=== PATIENT | male | born 1940 | race Caucasian/White ===

== ENCOUNTER 2023-07-29 07:43 | Outpatient (RCR) | payer MEDICARE, OTHER, BC, SELFPAY | END 2023-09-01 15:43 | disposition home or self-care (01) | LOC: PT 07:43 | PROVIDERS: PCP Registered Nurse; Visit Provider Registered Nurse | DX: R26.81 Unsteadiness on feet (principal) | CPT/HCPCS: 97110; 97112; 97116; 97163; 97530 ==

== ENCOUNTER 2024-05-30 14:55 | Outpatient (OUT) | payer MEDICARE, OTHER, SELFPAY ==
--- NOTE | 2024-05-30 15:04 | ECG_ITS ---
[facility] Test Date: 2024-05-30 Pat Name: SHIRLEY NIETO Department: Room: - Gender: Male Supervisor Finishing Room: : 1940 Requested By: HENOK ROGERS Order Number: [id number] Reading MD: SHELLEY HARRISON M.D. Measurements Intervals Davin Rate: 109 P: 73 MA: 164 QRS: -56 QRSD: 129 T: 56 QT: 374 QTc: 505 Interpretive Statements SINUS TACHYCARDIA WITH FREQUENT SUPRAVENTRICULAR PREMATURE COMPLEXES IN A BIGEMINAL PATTERN RIGHT BUNDLE BRANCH BLOCK LEFT ANTERIOR FASCICULAR BLOCK [QRS AXIS <= -45, QR IN I, RS IN II] Bifascicular block No previous ECG available for comparison Electronically Signed On 05-30-2024 21:48:10 EDT by SHELLEY HARRISON M.D.
[2024-05-30 15:49] LABS: Creatinine Urine Random 87.79 mg/dL (20.00-300.00); Microalbum Creatinine Ratio Ur 55.8 mg/g (0.0-29.9); Microalbumin Urine Random 4.9 mg/dL (<=30.0)
[2024-06-02 08:08] LABS: Thyroid Stim Immunoglobulin <0.10 IU/L (0.00-0.55)
== END 2024-05-30 14:56 | disposition home or self-care (01) ==
LOC: CARD 14:58
PROVIDERS: PCP Internal Medicine; Visit Provider Internal Medicine
DX: R60.0 Localized edema (principal); R01.1 Cardiac murmur, unspecified; R53.83 Other fatigue; I50.9 Heart failure, unspecified; I11.0 Hypertensive heart disease with heart failure
CPT/HCPCS: 36415; 82043; 82570; 83880; 84445; 93005

== ENCOUNTER 2024-06-10 07:09 | Outpatient (OUT) | payer MEDICARE, OTHER, SELFPAY ==
--- NOTE | 2024-06-10 07:30 | CA_ITS ---
Patient Name: SHIRLEY NIETO MR#: [id number] : 1940 Exam Date: 06/10/2024 Ordering Doctor: DR HENOK ROGERS D.O. ECHOCARDIOGRAM REPORT PROCEDURE: CA ECHO DOPPLER COMPLETE INDICATIONS: Edema, fatigue, hypertension COMPARISON: None. DESCRIPTION: COMPLETE ECHOCARDIOGRAM Real-time transthoracic echocardiography with 2D, M-mode, spectral and color flow Doppler performed. QUALITY: Technical quality was good. LEFT VENTRICLE: Normal chamber size. Mild concentric left ventricular hypertrophy. Normal left ventricle systolic function without wall motion abnormalities, LV EF: Normal left ventricular ejection fraction 55 to 60% DIASTOLIC: Unable to evaluate diastolic function ATRIAL SEPTUM: Visually appears intact LEFT ATRIUM: Normal chamber size. RIGHT ATRIUM: Mild dilatation. RIGHT VENTRICLE: Normal chamber size. Normal right ventricular systolic function. TRICUSPID VALVE: Normal mobility and thickness. No stenosis with trivial regurgitation. MITRAL VALVE: Normal mobility and thickness. No evidence of mitral valve stenosis. There is no mitral annular calcification. Mild mitral regurgitation. AORTIC VALVE: Normal trileaflet appearance. Thickened aortic valve. Normal leaflet mobility. No evidence of aortic valve stenosis. No aortic regurgitation. AORTIC ROOT: Normal diameter and appearance. PULMONIC VALVE: Normal thickness and mobility. No stenosis. Trivial regurgitation. PERICARDIUM: No evidence of pericardial effusion. IVC: Not well visualized. PLEURA: CONCLUSION: Mild concentric left ventricular hypertrophy Normal left ventricle size, and systolic function without wall motion abnormalities, ejection fraction 55 to 60% Unable to evaluate left ventricle diastolic function Normal right ventricle size and systolic function Mild mitral regurgitation Mildly dilated right atrium Adult Echocardiography Procedure Report Left Ventricle LVEDD (3.7 - 5.6 cm): 4.98 cm LVESD (2.2 - 4.0 cm): 3.36 cm LVIVS thickness (0.6 - 1.2 cm): 1.39 cm LVPW thickness (0.5 - 1.0 cm): 1.28 cm e': E - e': LVOT Max Gradient: 2.15 mm[Hg], 2.62 mm[Hg], 3.16 mm[Hg] LVOT Area (cm2): 0.81 m/s Peak Velocity (LVOT): 0.73 m/s, 0.81 m/s, 0.89 m/s Mean Velocity (LVOT): LVOT Diameter 2.57 cm Left Ventricular Ejection Fraction: Left Atrium LA Volume Index (2D A2C): 36.06 ml/m2 Left Atrium Systolic Dimension: 4.29 cm Mitral Valve MV E to A Ratio: 0.82 MV Max Gradient: MV Mean Gradient: Mitral Valve A-Wave Peak Velocity: 0.73 m/s Mitral Valve E-Wave Peak Velocity: 0.60 m/s Cardiovascular Orifice Area: Right Ventricle RV Internal Diastolic Dimension: Aorta AO Root Diam: 3.79 cm Ascending Ao Diam: 3.47 cm Aortic Valve AoV Area (Peak Dagoberto): 5.14 cm2, 4.63 cm2, 4.91 cm2, 5.92 cm2 AoV Area (VTI): Deceleration Valley: Pressure Half-Time: Peak Velocity(Antegrade Flow): 0.82 m/s, 0.85 m/s, 0.78 m/s Peak Gradient(Antegrade Flow): 2.69 mm[Hg], 2.91 mm[Hg], 2.42 mm[Hg] Mean Velocity(Antegrade Flow): Mean Gradient(Antegrade Flow): Velocity Time Integral: Tricuspid Valve Peak Velocity (Regurgitant Flow): Peak Velocity: Pulmonic Valve Mean Gradient: 1.40 mm[Hg] Mean Velocity: 0.56 m/s Peak Velocity: 0.83 m/s, 0.80 m/s Peak Gradient: 2.14 mm[Hg], 3.06 mm[Hg], 2.72 mm[Hg] Right Atrium Right Atrium Systolic Pressure: 69.78 ml, 69.78 ml Dictated by: Abbei De Anda MD on 06/10/2024 at 17:52 Approved by: Abbie De Anda MD on 06/10/2024 at 17:59
== END 2024-06-10 07:10 | disposition home or self-care (01) ==
LOC: CARD 07:09
PROVIDERS: PCP Internal Medicine; Visit Provider Internal Medicine
DX: R60.0 Localized edema (principal); R60.9 Edema, unspecified; R01.1 Cardiac murmur, unspecified; I10 Essential (primary) hypertension; R53.83 Other fatigue
CPT/HCPCS: 93306

== ENCOUNTER 2024-07-03 14:19 | Inpatient (IN) | payer MEDICARE, OTHER, SELFPAY ==
--- OUTSIDE RECORDS SUMMARY | 2024-06-06 12:25 | XMS_ITS ---
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 Name Role Phone Clarke Bertrand Admitting Unavailable Clarke Bertrand Attending Unavailable ObmichelleeyLashell ashby Admitting Unavailable ObmichelleeyLashell ashby Attending Unavailable Ball, Duarte Primary Care Unavailable Bertrand, Clarke Admitting Unavailable Clarke Bertrand Attending Unavailable Ball, Duarte Primary Care Unavailable Bertrand, Clarke Admitting Unavailable Clarke Bertrand Attending Unavailable Ball, Duarte Primary Care Unavailable Bertrand, Clarke Admitting Unavailable Clarke Bertrand Attending Unavailable Vickey Moeller Admitting Unavailable Vickey Moeller Attending Unavailable Ball, Duarte Primary Care Unavailable PROBLEMS DATE TYPE CONDITION / CODE [facility]US [facility] 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 Scanned copy available in EMR. PERFORMED BY: [place] [address] PATHOLOGIST RADIOLOGIST PHYSICIAN DEE JENNINGS M.D. Performed By: #### PATH TO [facility] #### [address] COMPREHENSIVE METABOLIC PANEL Collected: 05/11/2024 9 :40 AM Status: F Source: [facility] TYPE CODE TESTS RESULT OUT OF RANGE REFERENCE UNITS LAB GLU Glucose 96 Normal 70-100 mg/dL Result Comment: Random Gluco se Reference Range is dependent on time and content of last meal. Glucose of more than 200 mg/dL in a nonstressed, ambulatory subject supports the diagnosis of Diabetes Mellitus. ADA recommended reference range LAB BUN Blood Urea Nitrogen 10 Normal 7-25 mg/d L LAB CREATT Creatinine 0.64 Low 0.70-1.30 mg/dL LAB GFReNR Estimated GFR >60.0 mL/Min LAB NA Sodium 139 Normal 136-145 mmol/L LAB K Potassium 3.5 Normal 3.5-5.1 mmol/L LAB CL Chloride 105 Normal 98-107 mmol/L LAB CO2 Carbon Dioxide 23.0 Normal 21.0-31.0 mmol/L LAB GAP Anion Gap 14.5 Normal 6.0-15.0 meq/L LAB CA Calcium 8.7 Normal 8.6-10.3 mg/dL LAB TP Total Protein 6.6 Normal 6.4-8.9 g/dL LAB ALB Albumin Level 3.5 Normal 3.5-5.7 g/dL LAB GLOB Globulin 3.1 g/dL LAB AGRATIO Albumin/Globulin Ratio 1.1 LAB BILIT Bilirubin,Total 0.7 Normal 0.3-1.0 mg/dL LAB AST Aspartate Amino Transferase 18 Normal 13-39 U/L LAB ALT Alanine Aminotransferase 14 Normal 7-52 U/L LAB ALP Alkaline Phosphatase 86 Normal 34-104 U/L Result Comment: PERFORMED BY : [place] [address] PATHOLOGIST RADIOLOGIST PHYSICIAN DEE JENNINGS M.D. Performed By: #### CMP, CBC, ESR #### [address] COMPLETE BLOOD COUNT AUTO DIFF Collected: 05/11/2024 9:40 AM Status: F Source: F [facility] TYPE CODE TESTS RESULT OUT OF RANGE REFERENCE UNITS LAB WBC White Blood Count 6.3 Normal 4.1-10.5 10*3/uL LAB UNWBC Uncorrected WBC 6.3 Normal 4.1-10.5 10*3/uL LAB RBC Red Blood Count 4.44 Normal 3.90-5.60 10*6/u L LAB HGB Hemoglobin 13.6 Normal 13.0-17.0 g/dL LAB HCT Hematocrit 40.5 Normal 38.8-50.0 % LAB MCV Mean Corpuscular Volume 91.1 Normal 83.5-101 fL LAB MCH Mean Corpuscular Hemoglobin 30.5 Normal 27.5-35.2 pg LAB MCHC Mean Corpuscular HGB Conc 33.5 Normal 32.5-35.6 g/dL LAB RDW Red Cell Distribution Width 18.2 High 12.0-14.8 % LAB PLT Platelet Count 183 Normal 150-450 10*3/uL LAB MPV Mean Platelet Volume 9.1 Normal 6.6-10.1 fL LAB NE% Neutrophils % (Auto) 67.5 . % LAB LY% Lymphocytes % (Auto) 16.9 . % LAB MO% Monocytes % (Auto) 13.9 . % LAB EO% Eosinophils % (Auto) 1.3 . % LAB BA% Basophils % (Auto) 0.4 . % LAB NRBC% NRBC% 0.1 Normal 0-0.5 /100{WBC} LAB NE# Neutrophils # (Auto) 4.3 Normal 1.8-7.7 10*3/uL LAB LY# Lymphocytes # (Auto) 1.1 Normal 1.00-4.8 10*3/uL LAB MO# Monocytes # (Auto) 0.9 High 0.0-0.8 10*3/uL LAB EO# Eosinophils # (Auto) 0.1 Normal 0.0-0.45 10*3/uL LAB BA# Basophils # (Auto) 0.0 Normal 0.0-0.2 10*3/uL Performed By: #### CMP, CBC, ESR #### [facility] [address] ERYTHROCYTE SEDIMENTATION RATE Collected: 05/11/2024 9:40 AM Status: F Source: [facility] TYPE CODE TESTS RESULT OUT OF RANGE REFERENCE UNITS LAB ESR Erythrocyte Sedimentation Rate 74 High 0-19 Result Comment: PERFORMED BY : [place] [address] PATHOLOGIST RADIOLOGIST PHYSICIAN DEE JENNINGS M.D. Performed By: #### CMP, CBC, ESR #### [facility] [address] COMPREHENSIVE METABOLIC PANEL Collected: 02/24/2024 9 :12 AM Status: F Source: [facility] TYPE CODE TESTS RESULT OUT OF RANGE REFERENCE UNITS LAB GLU Glucose 96 Normal 70-100 mg/dL Result Comment: Random Gluco se Reference Range is dependent on time and content of last meal. Glucose of more than 200 mg/dL in a nonstressed, ambulatory subject supports the diagnosis of Diabetes Mellitus. ADA recommended reference range LAB BUN Blood Urea Nitrogen 13 Normal 7-25 mg/d L LAB CREATT Creatinine 0.76 Normal 0.70-1.30 mg/dL LAB GFReNR Estimated GFR >60.0 mL/Min LAB NA Sodium 141 Normal 136-145 mmol/L LAB K Potassium 3.6 Normal 3.5-5.1 mmol/L LAB CL Chloride 104 Normal 98-107 mmol/L LAB CO2 Carbon Dioxide 28.2 Normal 21.0-31.0 mmol/L LAB GAP Anion Gap 12.4 Normal 6.0-15.0 meq/L LAB CA Calcium 9.2 Normal 8.6-10.3 mg/dL LAB TP Total Protein 7.2 Normal 6.4-8.9 g/dL LAB ALB Albumin Level 3.8 Normal 3.5-5.7 g/dL LAB GLOB Globulin 3.4 g/dL LAB AGRATIO Albumin/Globulin Ratio 1.1 LAB BILIT Bilirubin,Total 0.5 Normal 0.3-1.0 mg/dL LAB AST Aspartate Amino Transferase 18 Normal 13-39 U/L LAB ALT Alanine Aminotransferase 19 Normal 7-52 U/L LAB ALP Alkaline Phosphatase 87 Normal 34-104 U/L Result Comment: PERFORMED BY : [facility] [address] [place] [address] PATHOLOGIST RADIOLOGIST PHYSICIAN DEE JENNINGS M.D. Performed By: #### CMP, CBC, ESR #### [facility] [address] COMPLETE BLOOD COUNT AUTO DIFF Collected: 02/24/2024 9:12 AM Status: F Source: F [facility] TYPE CODE TESTS RESULT OUT OF RANGE REFERENCE UNITS LAB WBC White Blood Count 6.3 Normal 4.1-10.5 10*3/uL LAB UNWBC Uncorrected WBC 6.3 Normal 4.1-10.5 10*3/uL LAB RBC Red Blood Count 4.72 Normal 3.90-5.60 10*6/u L LAB HGB Hemoglobin 14.2 Normal 13.0-17.0 g/dL LAB HCT Hematocrit 42.5 Normal 38.8-50.0 % LAB MCV Mean Corpuscular Volume 90.1 Normal 83.5-101 fL LAB MCH Mean Corpuscular Hemoglobin 30.1 Normal 27.5-35.2 pg LAB MCHC Mean Corpuscular HGB Conc 33.4 Normal 32.5-35.6 g/dL LAB RDW Red Cell Distribution Width 17.4 High 12.0-14.8 % LAB PLT Platelet Count 218 Normal 150-450 10*3/uL LAB MPV Mean Platelet Volume 8.9 Normal 6.6-10.1 fL LAB NE% Neutrophils % (Auto) 62.0 . % LAB LY% Lymphocytes % (Auto) 21.7 . % LAB MO% Monocytes % (Auto) 11.7 . % LAB EO% Eosinophils % (Auto) 4.1 . % LAB BA% Basophils % (Auto) 0.5 . % LAB NRBC% NRBC% 0.1 Normal 0-0.5 /100{WBC} LAB NE# Neutrophils # (Auto) 3.9 Normal 1.8-7.7 10*3/uL LAB LY# Lymphocytes # (Auto) 1.4 Normal 1.00-4.8 10*3/uL LAB MO# Monocytes # (Auto) 0.7 Normal 0.0-0.8 10*3/uL LAB EO# Eosinophils # (Auto) 0.3 Normal 0.0-0.45 10*3/uL LAB BA# Basophils # (Auto) 0.0 Normal 0.0-0.2 10*3/uL Performed By: #### CMP, CBC, ESR #### [facility] [address] [place] [id number] [facility] ERYTHROCYTE SEDIMENTATION RATE Collected: 02/24/2024 9:12 AM Status: F Source: [facility] TYPE CODE TESTS RESULT OUT OF RANGE REFERENCE UNITS LAB ESR Erythrocyte Sedimentation Rate 55 High 0-19 Result Comment: PERFORMED BY : [place] [address] PATHOLOGIST RADIOLOGIST PHYSICIAN DEE JENNINGS M.D. Performed By: #### CMP, CBC, ESR #### [facility] [address] [place] [id number] [facility] COMPLETE BLOOD COUNT AUTO DIFF Collected: 12/30/2023 9:07 AM Status: F Source: F [facility] TYPE CODE TESTS RESULT OUT OF RANGE REFERENCE UNITS LAB WBC White Blood Count 4.9 Normal 4.1-10.5 10*3/uL LAB UNWBC Uncorrected WBC 4.9 Normal 4.1-10.5 10*3/uL LAB RBC Red Blood Count 4.60 Normal 3.90-5.60 10*6/u L LAB HGB Hemoglobin 14.2 Normal 13.0-17.0 g/dL LAB HCT Hematocrit 42.4 Normal 38.8-50.0 % LAB MCV Mean Corpuscular Volume 92.2 Normal 83.5-101 fL LAB MCH Mean Corpuscular Hemoglobin 30.8 Normal 27.5-35.2 pg LAB MCHC Mean Corpuscular HGB Conc 33.4 Normal 32.5-35.6 g/dL LAB RDW Red Cell Distribution Width 16.6 High 12.0-14.8 % LAB PLT Platelet Count 183 Normal 150-450 10*3/uL LAB MPV Mean Platelet Volume 9.0 Normal 6.6-10.1 fL LAB NE% Neutrophils % (Auto) 57.9 . % LAB LY% Lymphocytes % (Auto) 23.8 . % LAB MO% Monocytes % (Auto) 12.7 . % LAB EO% Eosinophils % (Auto) 5.0 . % LAB BA% Basophils % (Auto) 0.6 . % LAB NRBC% NRBC% 0.1 Normal 0-0.5 /100{WBC} LAB NE# Neutrophils # (Auto) 2.8 Normal 1.8-7.7 10*3/uL LAB LY# Lymphocytes # (Auto) 1.2 Normal 1.00-4.8 10*3/uL LAB MO# Monocytes # (Auto) 0.6 Normal 0.0-0.8 10*3/uL LAB EO# Eosinophils # (Auto) 0.2 Normal 0.0-0.45 10*3/uL LAB BA# Basophils # (Auto) 0.0 Normal 0.0-0.2 10*3/uL Performed By: #### ESR, CMP, B12, CBC, MG #### [facility] [address] ERYTHROCYTE SEDIMENTATION RATE Collected: 12/30/2023 9:07 AM Status: F Source: [facility] TYPE CODE TESTS RESULT OUT OF RANGE REFERENCE UNITS LAB ESR Erythrocyte Sedimentation Rate 59 High 0-19 Result Comment: PERFORMED BY : [place] [address] PATHOLOGIST RADIOLOGIST PHYSICIAN DEE JENNINGS M.D. Performed By: #### ESR, CMP, B12, CBC, MG #### [address] COMPREHENSIVE METABOLIC PANEL Collected: 12/30/2023 9 :07 AM Status: F Source: [facility] TYPE CODE TESTS RESULT OUT OF RANGE REFERENCE UNITS LAB GLU Glucose 95 Normal 70-100 mg/dL Result Comment: Random Gluco se Reference Range is dependent on time and content of last meal. Glucose of more than 200 mg/dL in a nonstressed, ambulatory subject supports the diagnosis of Diabetes Mellitus. ADA recommended reference range LAB BUN Blood Urea Nitrogen 10 Normal 7-25 mg/d L LAB CREATT Creatinine 0.83 Normal 0.70-1.30 mg/dL LAB GFReNR Estimated GFR >60.0 mL/Min LAB NA Sodium 140 Normal 136-145 mmol/L LAB K Potassium 3.6 Normal 3.5-5.1 mmol/L LAB CL Chloride 105 Normal 98-107 mmol/L LAB CO2 Carbon Dioxide 25.9 Normal 21.0-31.0 mmol/L LAB GAP Anion Gap 12.7 Normal 6.0-15.0 meq/L LAB CA Calcium 9.0 Normal 8.6-10.3 mg/dL LAB TP Total Protein 7.1 Normal 6.4-8.9 g/dL LAB ALB Albumin Level 3.6 Normal 3.5-5.7 g/dL LAB GLOB Globulin 3.5 g/dL LAB AGRATIO Albumin/Globulin Ratio 1.0 LAB BILIT Bilirubin,Total 0.5 Normal 0.3-1.0 mg/dL LAB AST Aspartate Amino Transferase 19 Normal 13-39 U/L LAB ALT Alanine Aminotransferase 16 Normal 7-52 U/L LAB ALP Alkaline Phosphatase 86 Normal 34-104 U/L Performed By: #### ESR, CMP, B12, CBC, MG #### [place] [id number] [facility] MAGNESIUM Collected: 4 9:07 AM Status: F Source: [facility] TYPE CODE TESTS RESULT OUT OF RANGE REFERENCE UNITS LAB MG Magnesium 1.8 Low 1.9-2.7 mg/dL Performed By: #### ESR, CMP, B12, CBC, MG #### [place] [id number] [facility] VITAMIN B12 Collected: 4 9:07 AM Status: F Source: [facility] TYPE CODE TESTS RESULT OUT OF RANGE REFERENCE UNITS LAB B12 Vitamin B12 1136 High 180-914 pg/mL Result Comment: PERFORMED BY : [place] [address] PATHOLOGIST RADIOLOGIST PHYSICIAN DEE JENNINGS M.D. Performed By: #### ESR, CMP, B12, CBC, MG #### [place] [id number] [facility] COMPLETE BLOOD COUNT AUTO DIFF Collected: 09/09/2023 10:36 AM Status: F Source: [facility] TYPE CODE TESTS RESULT OUT OF RANGE REFERENCE UNITS LAB WBC White Blood Count 4.7 Normal 4.1-10.5 10*3/uL LAB UNWBC Uncorrected WBC 4.7 Normal 4.1-10.5 10*3/uL LAB RBC Red Blood Count 4.78 Normal 3.90-5.60 LAB HGB Hemoglobin 14.4 Normal 13.0-17.0 g/dL LAB HCT Hematocrit 44.0 Normal 38.8-50.0 % LAB MCV Mean Corpuscular Volume 92.0 Normal 83.5-101 fL LAB MCH Mean Corpuscular Hemoglobin 30.1 Normal 27.5-35.2 pg LAB MCHC Mean Corpuscular HGB Conc 32.7 Normal 32.5-35.6 g/dL LAB RDW Red Cell Distribution Width 16.6 High 12.0-14.8 % LAB PLT Platelet Count 180 Normal 150-450 10*3/uL LAB MPV Mean Platelet Volume 9.0 Normal 6.6-10.1 fL LAB NE% Neutrophils % (Auto) 55.6 . % LAB LY% Lymphocytes % (Auto) 25.4 . % LAB MO% Monocytes % (Auto) 13.3 . % LAB EO% Eosinophils % (Auto) 5.0 . % LAB BA% Basophils % (Auto) 0.7 . % LAB NRBC% NRBC% 0.0 Normal 0-0.5 /100{WBC} LAB NE# Neutrophils # (Auto) 2.6 Normal 1.8-7.7 10*3/uL LAB LY# Lymphocytes # (Auto) 1.2 Normal 1.00-4.8 10*3/uL LAB MO# Monocytes # (Auto) 0.6 Normal 0.0-0.8 10*3/uL LAB EO# Eosinophils # (Auto) 0.2 Normal 0.0-0.45 10*3/uL LAB BA# Basophils # (Auto) 0.0 Normal 0.0-0.2 10*3/uL Performed By: #### ESR, CMP, B12, CBC, MG #### [facility] [address] [place] [id number] [facility] ERYTHROCYTE SEDIMENTATION RATE Collected: 09/09/2023 10:36 AM Status: F Source: [facility] TYPE CODE TESTS RESULT OUT OF RANGE REFERENCE UNITS LAB ESR Erythrocyte Sedimentation Rate 51 High 0-19 Result Comment: PERFORMED BY : [facility] [address] [place] [address] PATHOLOGIST RADIOLOGIST PHYSICIAN CRISTINA MARINELLI M.D. Performed By: #### ESR, CMP, B12, CBC, MG #### [facility] [address] [place] [id number] [facility] COMPREHENSIVE METABOLIC PANEL Collected: 09/09/2023 1 0:36 AM Status: F Source: [facility] TYPE CODE TESTS RESULT OUT OF RANGE REFERENCE UNITS LAB GLU Glucose 99 Normal 70-100 mg/dL Result Comment: Random Gluco se Reference Range is dependent on time and content of last meal. Glucose of more than 200 mg/dL in a nonstressed, ambulatory subject supports the diagnosis of Diabetes Mellitus. ADA recommended reference range LAB BUN Blood Urea Nitrogen 14 Normal 7-25 mg/d L LAB CREATT Creatinine 0.84 Normal 0.70-1.30 mg/dL LAB GFReNR Estimated GFR > 60.0 LAB NA Sodium 135 Low 136-145 mmol/L LAB K Potassium 3.8 Normal 3.5-5.1 mmol/L LAB CL Chloride 107 Normal 98-107 mmol/L LAB CO2 Carbon Dioxide 25.0 Normal 21.0-31.0 mmol/L LAB GAP Anion Gap 6.8 Normal 6.0-15.0 LAB CA Calcium 9.6 Normal 8.6-10.3 mg/dL LAB TP Total Protein 7.2 Normal 6.4-8.9 g/dL LAB ALB Albumin Level 3.9 Normal 3.5-5.7 g/dL LAB GLOB Globulin 3.3 g/dL LAB AGRATIO Albumin/Globulin Ratio 1.2 LAB BILIT Bilirubin,Total 0.5 Normal 0.3-1.0 mg/dL LAB AST Aspartate Amino Transferase 25 Normal 13-39 U/L LAB ALT Alanine Aminotransferase 21 Normal 7-52 U/L LAB ALP Alkaline Phosphatase 74 Normal 34-104 U/L Performed By: #### ESR, CMP, B12, CBC, MG #### [facility] [address] [place] [id number] [facility] MAGNESIUM Collected: 4 10:36 AM Status: F Source: [facility] TYPE CODE TESTS RESULT OUT OF RANGE REFERENCE UNITS LAB MG Magnesium 1.9 Normal 1.9-2.7 mg/dL Performed By: #### ESR, CMP, B12, CBC, MG #### [facility] [address] [place] [id number] [facility] VITAMIN B12 Collected: 10:36 AM Status: F Source: [facility] TYPE CODE TESTS RESULT OUT OF RANGE REFERENCE UNITS LAB B12 Vitamin B12 939 High 180-914 pg/mL Result Comment: PERFORMED BY : [facility] [address] [place] [address] PATHOLOGIST RADIOLOGIST PHYSICIAN CRISTINA MARINELLI M.D. Performed By: #### ESR, CMP, B12, CBC, MG #### [facility] [address] [place] [id number] [facility] COMPLETE BLOOD COUNT AUTO DIFF Collected: 07/15/2023 8:12 AM Status: F Source: F [facility] TYPE CODE TESTS RESULT OUT OF RANGE REFERENCE UNITS LAB WBC White Blood Count 4.4 Normal 4.1-10.5 10*3/uL LAB UNWBC Uncorrected WBC 4.4 Normal 4.1-10.5 10*3/uL LAB RBC Red Blood Count 4.58 Normal 3.90-5.60 LAB HGB Hemoglobin 13.8 Normal 13.0-17.0 g/dL LAB HCT Hematocrit 42.3 Normal 38.8-50.0 % LAB MCV Mean Corpuscular Volume 92.3 Normal 83.5-101 fL LAB MCH Mean Corpuscular Hemoglobin 30.1 Normal 27.5-35.2 pg LAB MCHC Mean Corpuscular HGB Conc 32.6 Normal 32.5-35.6 g/dL LAB RDW Red Cell Distribution Width 16.9 High 12.0-14.8 % LAB PLT Platelet Count 160 Normal 150-450 10*3/uL LAB MPV Mean Platelet Volume 9.5 Normal 6.6-10.1 fL LAB NE% Neutrophils % (Auto) 50.2 . % LAB LY% Lymphocytes % (Auto) 27.7 . % LAB MO% Monocytes % (Auto) 16.2 . % LAB EO% Eosinophils % (Auto) 5.5 . % LAB BA% Basophils % (Auto) 0.4 . % LAB NRBC% NRBC% 0.2 Normal 0-0.5 /100{WBC} LAB NE# Neutrophils # (Auto) 2.2 Normal 1.8-7.7 10*3/uL LAB LY# Lymphocytes # (Auto) 1.2 Normal 1.00-4.8 10*3/uL LAB MO# Monocytes # (Auto) 0.7 Normal 0.0-0.8 10*3/uL LAB EO# Eosinophils # (Auto) 0.2 Normal 0.0-0.45 10*3/uL LAB BA# Basophils # (Auto) 0.0 Normal 0.0-0.2 10*3/uL Performed By: #### ESR, MG, CBC, CMP, B12 #### [facility] [address] [place] [id number] [facility] ERYTHROCYTE SEDIMENTATION RATE Collected: 07/15/2023 8:12 AM Status: F Source: [facility] TYPE CODE TESTS RESULT OUT OF RANGE REFERENCE UNITS LAB ESR Erythrocyte Sedimentation Rate 44 High 0-19 Result Comment: PERFORMED BY : [place] [address] PATHOLOGIST RADIOLOGIST PHYSICIAN CRISTINA MARINELLI M.D. Performed By: #### ESR, MG, CBC, CMP, B12 #### [facility] [address] [place] [id number] [facility] COMPREHENSIVE METABOLIC PANEL Collected: 07/15/2023 8 :12 AM Status: F Source: [facility] TYPE CODE TESTS RESULT OUT OF RANGE REFERENCE UNITS LAB GLU Glucose 98 Normal 70-100 mg/dL Result Comment: Random Gluco se Reference Range is dependent on time and content of last meal. Glucose of more than 200 mg/dL in a nonstressed, ambulatory subject supports the diagnosis of Diabetes Mellitus. ADA recommended reference range LAB BUN Blood Urea Nitrogen 14 Normal 7-25 mg/d L LAB CREATT Creatinine 0.76 Normal 0.70-1.30 mg/dL LAB GFReNR Estimated GFR > 60.0 LAB NA Sodium 139 Normal 136-145 mmol/L LAB K Potassium 4.1 Normal 3.5-5.1 mmol/L LAB CL Chloride 106 Normal 98-107 mmol/L LAB CO2 Carbon Dioxide 25.2 Normal 21.0-31.0 mmol/L LAB GAP Anion Gap 11.9 Normal 6.0-15.0 LAB CA Calcium 10.0 Normal 8.6-10.3 mg/dL LAB TP Total Protein 7.1 Normal 6.4-8.9 g/dL LAB ALB Albumin Level 3.9 Normal 3.5-5.7 g/dL LAB GLOB Globulin 3.2 g/dL LAB AGRATIO Albumin/Globulin Ratio 1.2 LAB BILIT Bilirubin,Total 0.5 Normal 0.3-1.0 mg/dL LAB AST Aspartate Amino Transferase 21 Normal 13-39 U/L LAB ALT Alanine Aminotransferase 17 Normal 7-52 U/L LAB ALP Alkaline Phosphatase 74 Normal 34-104 U/L Performed By: #### ESR, MG, CBC, CMP, B12 #### [place] [id number] [facility] MAGNESIUM Collected: 4 8:12 AM Status: F Source: [facility] TYPE CODE TESTS RESULT OUT OF RANGE REFERENCE UNITS LAB MG Magnesium 1.8 Low 1.9-2.7 mg/dL Performed By: #### ESR, MG, CBC, CMP, B12 #### [facility] [address] [place] [address] VITAMIN B12 Collected: 4 8:12 AM Status: F Source: [facility] TYPE CODE TESTS RESULT OUT OF RANGE REFERENCE UNITS LAB B12 Vitamin B12 866 Normal 180-914 pg/mL Result Comment: PERFORMED BY : [place] [address] PATHOLOGIST RADIOLOGIST PHYSICIAN CRISTINA MARINELLI M.D. Performed By: #### ESR, MG, CBC, CMP, B12 #### [address] ALLERGIES DATE TYPE / CODE NAME / CODE REACTION SEVERITY SOURCE 06/06/2024 Drug Allergy/[id number] (SNOMED CT) No Known Allergies/[id number] 88(RXNORM) Unknown [facility] ENCOUNTERS ADMIT/DISCHARGE ACCOUNT NUMBER ADMITTING ENCOUNTER CLASS LOCATION SOURCE 06/06/2024/ [id number] [facility] 05/11/2024/ [id number] [facility] [id number] [facility] 12/30/2023/ [id number] [facility] 09/09/2023/ [id number] [facility] 07/15/2023/ [id number] [facility] PAYERS ENCOUNTER GUARANTOR PAYER SUBSCRIBER SOURCE 06/06/2024 Larry My [id number] [place] [phone]: () Primary Insurance:MedicarePo licy Number: [id number] Date:2024-05-11 Mumfordlaine Cid: [id number] [address] [address]Ifg: () [facility] 06/06/2024 Secondary Insurance[place]: [id number] Date:2024-05-11 Larrylaine Cid: [id number] [place] [phone]: () [facility] 06/06/2024 Tertiary Insurance:Self PayPolicy Number: Effective Date:2024-05-11 [facility] Larry My [id number] [place] [phone]: () Primary Insurance:MedicarePo licy Number: [id number] Date:2024-05-11 Larry Cid: [id number] [address] [address]Gkt: () [facility] 05/11/2024 Secondary Insurance:[place] Number: [id number] Date:2024-05-11 Larry HartDOB: [id number] [address] [address]Vxa: () [facility] 05/11/2024 Tertiary Insurance:Self PayPolicy Number: Effective Date:2024-05-11 [facility]24 Larry Pepe [id number] [address] [place] [address]Bdw: () Primary Insurance:MedicarePo licy Number: [id number] Date:2024-02-24 Larry RoaSantanaB: [id number] [place] [phone]: () [facility] 02/24/2024 Secondary Insurance:[place] Number: [id number] Date:2024-02-24 Larry RoaSantanaB: [id number] [address] [address]Yyk: () [facility] 02/24/2024 Tertiary Insurance:Self PayPolicy Number: Effective Date:2024-02-24 [facility] 12/30/2023 Larry Pepe [id number] [address] [place] [address]Kid: () Primary Insurance:MedicarePo licy Number: [id number] Date:2023-12-30 Larry RoaemileDOB: [id number] [address] [address]Xrv: () [facility] 12/30/2023 Secondary Insurance:[place]: [id number] Date:2023-12-30 Larry HartDOB: [id number] [address] [address]Imy: () [facility] 12/30/2023 Tertiary Insurance:Self PayPolicy Number: Effective Date:2023-12-30 NOT GIVENUNK [facility] 09/09/2023 [address] Roater[address], [facility]Blv: () Primary Insurance:MedicarePo licy Number: [id number] Date:2023-09-09 Larry HartDOB: [id number] [address] [address]Hsy: () [facility] 09/09/2023 Secondary Insurance:[place]: [id number] Date:2023-09-09 Larry HartDOB: [id number] [address] [address]Prn: () [facility] 09/09/2023 Tertiary Insurance:Self PayPolicy Number: Effective Date:2023-09-09 [facility] Larry Hart[address] [address]Txf: () Primary Insurance:MedicarePo licy Number: [id number] Date:2023-07-15 Larry HartDOB: [id number] [address] [address]Dfd: () [facility] 07/15/2023 Secondary Insurance:[place]: [id number] Date:2023-07-15 Larry HartDOB: [id number] [address] [address]Jaf: () [facility] 07/15/2023 Tertiary Insurance:Self PayPolicy Number: Effective Date:2023-07-15 NOT GIVENUNK [facility]
--- OUTSIDE RECORDS SUMMARY | 2024-06-06 12:25 | XMS_ITS ---
Author Name Auto Generated Organization OHIP Care Team Providers Care Surveyor Oil Well Directional Name Role Phone Clarke Bertrand Admitting Unavailable [...] Admitting Unavailable Vickey Moeller Attending Unavailable Ball, Duaret Primary Care Unavailable PROBLEMS DATE TYPE CONDITION / CODE 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 Scanned copy available in EMR. PERFORMED BY: [place] [address] PATHOLOGIST CANE FLUME WATCHER DEE JENNINGS M.D. Performed By: #### PATH TO [facility] #### [address] COMPREHENSIVE METABOLIC PANEL Collected: 05/11/2024 9 :40 AM Status: F Source: [facility] TYPE CODE TESTS RESULT OUT OF [...] 34-104 U/L Result Comment: PERFORMED BY : [place] [address] PATHOLOGIST CANE FLUME WATCHER DEE JENNINGS M.D. Performed By: #### CMP, CBC, ESR #### [address] COMPLETE BLOOD COUNT AUTO DIFF Collected: 05/11/2024 9:40 AM Status: F [facility]: [facility] TYPE CODE TESTS RESULT OUT OF [...] Performed By: #### CMP, CBC, ESR #### [facility] [address] ERYTHROCYTE SEDIMENTATION RATE Collected: 05/11/2024 9:40 AM Status: F Source: [facility] TYPE CODE TESTS RESULT OUT OF RANGE REFERENCE UNITS LAB ESR Erythrocyte Sedimentation Rate 74 High 0-19 Result Comment: PERFORMED BY : [place] [address] PATHOLOGIST CANE FLUME WATCHER DEE JENNINGS M.D. Performed By: #### CMP, CBC, ESR #### [facility] [address] COMPREHENSIVE METABOLIC PANEL Collected: 02/24/2024 9 :12 AM Status: F Source: [facility] TYPE CODE TESTS RESULT OUT OF [...] 34-104 U/L Result Comment: PERFORMED BY : [facility] [address] [place] [address] PATHOLOGIST CANE FLUME WATCHER DEE JENNINGS M.D. Performed By: #### CMP, CBC, ESR #### [facility] [address] COMPLETE BLOOD COUNT AUTO DIFF Collected: 02/24/2024 9:12 AM Status: F [facility]: [facility] TYPE CODE TESTS RESULT OUT OF [...] Performed By: #### CMP, CBC, ESR #### [facility] [address] [place] [id number] [facility] ERYTHROCYTE SEDIMENTATION RATE Collected: 02/24/2024 9:12 AM Status: F Source: [facility] TYPE CODE TESTS RESULT OUT OF RANGE REFERENCE UNITS LAB ESR Erythrocyte Sedimentation Rate 55 High 0-19 Result Comment: PERFORMED BY : [place] [address] PATHOLOGIST CANE FLUME WATCHER DEE JENNINGS M.D. Performed By: #### CMP, CBC, ESR #### [facility] [address] [place] [id number] [facility] COMPLETE BLOOD COUNT AUTO DIFF Collected: 12/30/2023 9:07 AM Status: F [facility]: [facility] TYPE CODE TESTS RESULT OUT OF [...] #### ESR, CMP, B12, CBC, MG #### [facility] [address] ERYTHROCYTE SEDIMENTATION RATE Collected: 12/30/2023 9:07 AM Status: F Source: [facility] TYPE CODE TESTS RESULT OUT OF RANGE REFERENCE UNITS LAB ESR Erythrocyte Sedimentation Rate 59 High 0-19 Result Comment: PERFORMED BY : [place] [address] PATHOLOGIST CANE FLUME WATCHER DEE JENNINGS M.D. Performed By: #### ESR, CMP, B12, CBC, MG #### [address] COMPREHENSIVE METABOLIC PANEL Collected: 12/30/2023 9 :07 AM Status: F Source: [facility] TYPE CODE TESTS RESULT OUT OF [...] #### ESR, CMP, B12, CBC, MG #### [place] [id number] [facility] MAGNESIUM Collected: 4 9:07 AM Status: F Source: [facility] TYPE CODE TESTS RESULT OUT OF RANGE REFERENCE UNITS LAB MG Magnesium 1.8 Low 1.9-2.7 mg/dL Performed By: #### ESR, CMP, B12, CBC, MG #### [place] [id number] [facility] VITAMIN B12 Collected: 4 9:07 AM Status: F Source: [facility] TYPE CODE TESTS RESULT OUT OF RANGE REFERENCE UNITS LAB B12 Vitamin B12 1136 High 180-914 pg/mL Result Comment: PERFORMED BY : [place] [address] PATHOLOGIST CANE FLUME WATCHER DEE JENNINGS M.D. Performed By: #### ESR, CMP, B12, CBC, MG #### [place] [id number] [facility] COMPLETE BLOOD COUNT AUTO DIFF Collected: 09/09/2023 10:36 AM Status: F Source: [facility] TYPE CODE TESTS RESULT OUT OF [...] #### ESR, CMP, B12, CBC, MG #### [facility] [address] [place] [id number] [facility] ERYTHROCYTE SEDIMENTATION RATE Collected: 09/09/2023 10:36 AM Status: F Source: [facility] TYPE CODE TESTS RESULT OUT OF RANGE REFERENCE UNITS LAB ESR Erythrocyte Sedimentation Rate 51 High 0-19 Result Comment: PERFORMED BY : [facility] [address] [place] [address] PATHOLOGIST CANE FLUME WATCHER CRISTINA MARINELLI M.D. Performed By: #### ESR, CMP, B12, CBC, MG #### [facility] [address] [place] [id number] [facility] COMPREHENSIVE METABOLIC PANEL Collected: 09/09/2023 1 0:36 AM Status: F Source: [facility] TYPE CODE TESTS RESULT OUT OF [...] #### ESR, CMP, B12, CBC, MG #### [facility] [address] [place] [id number] [facility] MAGNESIUM Collected: 4 10:36 AM Status: F Source: [facility] TYPE CODE TESTS RESULT OUT OF RANGE REFERENCE UNITS LAB MG Magnesium 1.9 Normal 1.9-2.7 mg/dL Performed By: #### ESR, CMP, B12, CBC, MG #### [facility] [address] [place] [id number] [facility] VITAMIN B12 Collected: 10:36 AM Status: F Source: [facility] TYPE CODE TESTS RESULT OUT OF RANGE REFERENCE UNITS LAB B12 Vitamin B12 939 High 180-914 pg/mL Result Comment: PERFORMED BY : [facility] [address] [place] [address] PATHOLOGIST CANE FLUME WATCHER CRISTINA MARINELLI M.D. Performed By: #### ESR, CMP, B12, CBC, MG #### [facility] [address] [place] [id number] [facility] COMPLETE BLOOD COUNT AUTO DIFF Collected: 07/15/2023 8:12 AM Status: F [facility]: [facility] TYPE CODE TESTS RESULT OUT OF [...] #### ESR, MG, CBC, CMP, B12 #### [facility] [address] [place] [id number] [facility] ERYTHROCYTE SEDIMENTATION RATE Collected: 07/15/2023 8:12 AM Status: F Source: [facility] TYPE CODE TESTS RESULT OUT OF RANGE REFERENCE UNITS LAB ESR Erythrocyte Sedimentation Rate 44 High 0-19 Result Comment: PERFORMED BY : [place] [address] PATHOLOGIST CANE FLUME WATCHER CRISTINA MARINELLI M.D. Performed By: #### ESR, MG, CBC, CMP, B12 #### [facility] [address] [place] [id number] [facility] COMPREHENSIVE METABOLIC PANEL Collected: 07/15/2023 8 :12 AM Status: F Source: [facility] TYPE CODE TESTS RESULT OUT OF [...] #### ESR, MG, CBC, CMP, B12 #### [place] [id number] [facility] MAGNESIUM Collected: 4 8:12 AM Status: F Source: [facility] TYPE CODE TESTS RESULT OUT OF RANGE REFERENCE UNITS LAB MG Magnesium 1.8 Low 1.9-2.7 mg/dL Performed By: #### ESR, MG, CBC, CMP, B12 #### [facility] [address] [place] [address] VITAMIN B12 Collected: 4 8:12 AM Status: F Source: [facility] TYPE CODE TESTS RESULT OUT OF RANGE REFERENCE UNITS LAB B12 Vitamin B12 866 Normal 180-914 pg/mL Result Comment: PERFORMED BY : [place] [address] PATHOLOGIST CANE FLUME WATCHER CRISTINA MARINELLI M.D. Performed By: #### ESR, MG, CBC, CMP, B12 #### [address] ALLERGIES DATE TYPE / CODE NAME / CODE REACTION SEVERITY SOURCE 06/06/2024 Drug Allergy/[id number] (SNOMED CT) No Known Allergies/[id number] 88(RXNORM) Unknown [facility] ENCOUNTERS ADMIT/DISCHARGE ACCOUNT NUMBER ADMITTING ENCOUNTER CLASS LOCATION SOURCE 06/06/2024/ 5 [id number] [facility]/11[facility]2024/ 5 [id number] [facility] [id number] [facility] 12/30/2023/ 4 [id number] Lashell Villar [facility] 09/09/2023/ 4 [id number] Clarke [facility] 07/15/2023/ 4 [id number] Clarke [facility] PAYERS ENCOUNTER GUARANTOR PAYER SUBSCRIBER SOURCE 06/06/2024 Larry My [id number] [place] [phone]: () Primary Insurance:MedicarePo licy Number: [id number] Date:2024-05-11 Mascotlaine Cid: [id number] [address] [address]Jdx: () [facility] 06/06/2024 Secondary Insurance:[employer] [place] Number: [id number] Date:2024-05-11 Larrylaine Cid: [id number] [place] [phone]: () [facility] 06/06/2024 Tertiary Insurance:Self PayPolicy Number: Effective Date:2024-05-11 [facility] Larry My [id number] [place] [phone]: () Primary Insurance:MedicarePo licy Number: [id number] Date:2024-05-11 Larry Cid: [id number] [address] [address]Dcn: () [facility] 05/11/2024 Secondary Insurance:[employer] [place] Number: [id number] Date:2024-05-11 Larry HartDOB: [id number] [address] [address]Qzj: () [facility] 05/11/2024 Tertiary Insurance:Self PayPolicy Number: Effective Date:2024-05-11 [facility]/24/2024 Larry Pepe [id number] [address] [place] [address]Bzi: () Primary Insurance:MedicarePo licy Number: [id number] Date:2024-02-24 Larry RoaSantanaB: [id number] [place] [phone]: () [facility] 02/24/2024 Secondary Insurance:[employer] [place] Number: [id number] Date:2024-02-24 Larry RoaSantanaB: [id number] [address] [address]Zde: () [facility] 02/24/2024 Tertiary Insurance:Self PayPolicy Number: Effective Date:2024-02-24 [facility] 12/30/2023 Larry Pepe [id number] [address] [place] [address]Uzn: () Primary Insurance:MedicarePo licy Number: [id number] Date:2023-12-30 Larry RoaemileDOB: [id number] [address] [address]Pwq: () [facility] 12/30/2023 Secondary Insurance:[employer] [place] Number: [id number] Date:2023-12-30 Larry HartDOB: [id number] [address] [address]Waq: () [facility] 12/30/2023 Tertiary Insurance:Self PayPolicy Number: Effective Date:2023-12-30 NOT GIVENUNK [facility] 09/09/2023 [address] Ro[address], [facility]Yyi: () Primary Insurance:MedicarePo licy Number: [id number] Date:2023-09-09 Larry HartDOB: [id number] [address] [address]Fgg: () [facility] 09/09/2023 Secondary Insurance:[place] [place] Number: [id number] Date:2023-09-09 Larry HartDOB: [id number] [address] [address]Sfm: () [facility] 09/09/2023 Tertiary Insurance:Self PayPolicy Number: Effective Date:2023-09-09 [facility] 07/15/2023 Larry Hart[address] [address]Wxi: () Primary Insurance:MedicarePo licy Number: [id number] Date:2023-07-15 Larry HartDOB: [id number] [address] [address]Cff: () [facility] 07/15/2023 Secondary Insurance:[employer] [place]Policy Number: [id number] Date:2023-07-15 Larry HartDOB: [id number] [address] [address]Rol: () [facility] 07/15/2023 Tertiary Insurance:Self PayPolicy Number: Effective Date:2023-07-15 NOT GIVENUNK [facility]
[2024-07-03] VITALS (27 sets, daily range): BP systolic 77–110; BP diastolic 30–74; PULSE 73–127; TEMP 36.8–37; O2SAT 92–94; BMI 23.8; BMI 23.3
--- NOTE | 2024-07-03 15:00 | ECG_ITS ---
[facility] Test Date: 2024-07-03 Pat Name: SHIRLEY NIETO Department: Room: - Gender: Male Patient Safety Sitter: : 1940 Requested By: 1030 Order Number: [id number] Reading MD: SHELLEY HARRISON M.D. Measurements Intervals [place] Rate: 121 P: 74 AL: 174 QRS: -39 QRSD: 124 T: 34 QT: 332 QTc: 404 Interpretive Statements 1120 Sinus tachycardia 1474 with frequent supraventricular premature complexes 2450 Right bundle branch block 7200 Abnormal left axis deviation 9150 abnormal ECG Compared to ECG 05/30/2024 15:12:22 Left-axis deviation now present Left anterior fascicular block no longer present Bifascicular block no longer present Electronically Signed On 07-04-2024 7:52:06 EDT by SHELLEY HARRISON M.D.
--- NOTE | 2024-07-03 15:01 | ED.GENADUL1 ---
Documented by User: Sam Bartlett MD 07/03/24 15:02 HPI HPI - General Adult General Chief complaint: Weakness Stated complaint: FLU LIKE SYMPTOMS Time Seen by Provider: 07/03/24 14:54 Source: patient Mode of arrival: Wheelchair History of Present Illness HPI narrative: 83-year-old male presents for not feeling well. He has not felt well for 1 and half to 2 weeks. He has been coughing up some phlegm and has been feeling weak. He does not complain of chest pain or abdominal pain. No vomiting or diarrhea. He states he feels like when he had COVID or influenza. He has not had a fever and did not have one at triage. Related Data Allergies Allergy/AdvReac Type Severity Reaction Status Date / Time No Known Drug Allergies Allergy Verified 07/03/24 14:38 Review of Systems ROS Narrative A ten point review of systems is negative except as noted above. PFSH PFSH Social History Little interest or pleasure in doing things: not at all Feeling down, depressed, or hopeless: not at all Exam Narrative Exam Narrative: Nurses note and vital signs reviewed and patient is not hypoxic. General: The patient appears well and in no apparent distress. Patient is resting comfortably on cart. Skin: Warm, dry, no pallor noted. There is no rash noted. Head: Normocephalic, atraumatic Eye: Normal conjunctiva, no drainage Ears, Nose, Mouth, and Throat: oral mucosa is minimally dry. Nares patent. Cardiovascular: Regular Rate and Rhythm, not tachycardic Respiratory: Patient is in no distress, no accessory muscle use, lungs are clear to auscultation, no wheezing, rales or rhonchi Back: non-tender GI: Soft and nontender Musculoskeletal: The patient has no evidence of calf tenderness, no pitting edema, symmetrical pulses noted bilaterally Neurological: A&O, normal speech Psychiatric: Cooperative Constitutional Vital Signs, click to edit/add: Last Vital Signs Temp 98.2 F 07/03/24 14:24 Pulse 116 H 07/03/24 20:03 Resp 22 H 07/03/24 20:03 BP 110/74 07/03/24 20:03 Pulse Ox 94 L 07/03/24 20:03 O2 Del Method Room Air 07/03/24 14:45 Course Vital Signs Vital signs: Vital Signs Temperature 98.2 F 07/03/24 14:24 Pulse Rate 73 07/03/24 14:24 Respiratory Rate 20 07/03/24 14:24 Blood Pressure 106/30 L 07/03/24 14:24 Pulse Oximetry 92 L 07/03/24 14:24 Oxygen Delivery Method Room Air 07/03/24 14:24 Temperature 98.2 F 07/03/24 14:24 Pulse Rate 116 H 07/03/24 20:03 Respiratory Rate 22 H 07/03/24 20:03 Blood Pressure 110/74 07/03/24 20:03 Pulse Oximetry 94 L 07/03/24 20:03 Oxygen Delivery Method Room Air 07/03/24 14:45 Medical Decision Making Lab Data Labs: Lab Results 07/03/24 07/03/24 07/03/24 Range/Units 14:53 14:56 16:10 WBC 8.3 (4.0-11.0) 10^3/uL RBC 4.00 L (4.70-6.10) 10^6/uL Hgb 12.3 L (14.0-18.0) g/dL Hct 36.5 L (42.0-54.0) % MCV 91.3 (80.0-94.0) fL MCH 30.8 (25.9-34.0) pg MCHC 33.7 (29.9-35.2) g/dL RDW 16.5 H (11.0-15.0) % Plt Count 151 (150-450) 10^3/uL MPV 10.6 (9.5-13.5) fL Neut % (Auto) 84.4 H (43.0-75.0) % Lymph % (Auto) 11.0 L (20.5-60.0) % [place] % (Auto) 3.4 (1.7-12.0) % Eos % (Auto) 0.0 L (0.9-7.0) % Baso % (Auto) 0.2 (0.2-2.0) % Neut # (Auto) 7.0 H (1.4-6.5) 10^3/uL Lymph # (Auto) 0.9 L (1.2-3.8) 10^3/uL [place] # (Auto) 0.3 (0.3-0.8) 10^3/uL Eos # (Auto) 0.0 (0.0-0.7) 10^3/uL Baso # (Auto) 0.0 (0.0-0.1) 10^3/uL Abs Immat Gran (auto) 0.08 H (0.00-0.03) 10^3/uL Imm/Tot Granulo (auto) 1.0 H (0.0-0.5) % Sodium 138 (136-145) mmol/L Potassium 4.1 (3.5-5.1) mmol/L Chloride 103 (98-107) mmol/L Carbon Dioxide 24.2 (21.0-32.0) mmol/L Anion Gap 14.9 BUN 37.0 H (7.0-18.0) mg/dL Creatinine 1.32 H (0.70-1.30) mg/dL Est GFR ( Amer) >60 (>=60 mL/min/1.73m^2) Est GFR (Non-Af Amer) 52 L (>=60 mL/min/1.73m^2) BUN/Creatinine Ratio 28.0 Glucose 105 (74-106) mg/dL Calcium 8.7 (8.5-10.1) mg/dL Urine Color Dk. yellow (YELLOW) Urine Clarity Clear (CLEAR) Urine pH 6.0 (5.0-9.0) Ur Specific [place] 1.025 (1.005-1.025) Urine Protein 30 A (NEG/TRACE) mg/dL Urine Glucose (UA) Negative (NEGATIVE) mg/dL Urine Ketones Trace A (NEGATIVE) mg/dL Urine Occult Blood Small A (NEGATIVE) Urine Nitrite Negative (NEGATIVE) Urine Bilirubin Small A (NEGATIVE) Urine Urobilinogen 1.0 (0.2-1.0) EU/dL Ur Leukocyte Esterase Negative (NEGATIVE) Urine RBC 2-5 A (0-2) #/HPF Urine WBC 0-2 A (NONE SEEN) #/HPF Ur Squamous Epith Cells Rare (NONE/RARE) #/LPF Urine Crystals None seen (None Seen) #/HPF Urine Bacteria Small A (NONE SEEN) #/HPF Urine Casts Seen A (NONE SEEN) #/LPF Hyaline Casts Few Urine Mucus Trace A (NONE SEEN) Ur Culture Indicated? Yes-[facility] [place] Influenza Type A Ag Negative Influenza Type B Ag Negative SARS-CoV-2 Ag (CV2AG) Negative (NEGATIVE) Discharge Plan Discharge Chief Complaint: Weakness Clinical Impression: Community acquired pneumonia, Acute kidney injury, Sepsis Patient Disposition: Admitted As Inpatient Time of Disposition Decision: 21:58 Condition: Fair Documented by User: Clemente Plasencia MD 07/03/24 21:58 HPI HPI - General Adult General Chief complaint: Weakness Stated complaint: FLU LIKE SYMPTOMS Time Seen by Provider: 07/03/24 14:54 Related Data Allergies Allergy/AdvReac Type Severity Reaction Status Date / Time No Known Drug Allergies Allergy Verified 07/03/24 14:38 PFSH PFSH Social History Little interest or pleasure in doing things: not at all Feeling down, depressed, or hopeless: not at all Exam Constitutional Vital Signs, click to edit/add: Last Vital Signs Temp 98.2 F 07/03/24 14:24 Pulse 116 H 07/03/24 20:03 Resp 22 H 07/03/24 20:03 BP 110/74 07/03/24 20:03 Pulse Ox 94 L 07/03/24 20:03 O2 Del Method Room Air 07/03/24 14:45 Course Vital Signs Vital signs: Vital Signs Temperature 98.2 F 07/03/24 14:24 Pulse Rate 73 07/03/24 14:24 Respiratory Rate 20 07/03/24 14:24 Blood Pressure 106/30 L 07/03/24 14:24 Pulse Oximetry 92 L 07/03/24 14:24 Oxygen Delivery Method Room Air 07/03/24 14:24 Temperature 98.2 F 07/03/24 14:24 Pulse Rate 116 H 07/03/24 20:03 Respiratory Rate 22 H 07/03/24 20:03 Blood Pressure 110/74 07/03/24 20:03 Pulse Oximetry 94 L 07/03/24 20:03 Oxygen Delivery Method Room Air 07/03/24 14:45 Medical Decision Making [facility] Narrative Medical decision making narrative: Signout note: Patient signed out to me with results of chest x-ray pending. In short this is a patient who presented to the emergency department with generalized weakness, productive cough. He is tachycardic and tachypneic, otherwise stable vitals. On my examination he has diminished lung sounds at the bases bilaterally with some trace rhonchi. Lab work was reviewed and noted. Creatinine today is elevated compared to his baseline on 05/11/24 representing an acute kidney injury. There is a significant delay in chest x-ray read due to extended read times by radiology. On my review of the x-ray at 2129 there are patchy infiltrates. Clinical picture is that of pneumonia. Will treat with Rocephin and azithromycin given his community-acquired risk factors. He does have an FRANDY. 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 He does meet SIRS criteria with source being pneumonia. Lactate and blood cultures are ordered. Sepsis risk recognized at identification of source at 2129. Case to be discussed with the hospitalist for admission. Patient and his agree with this plan. Clemente Plasencia DO, FAAEM Medical Records Medical records reviewed: Yes I reviewed the patient's medical records Medical records narrative: C[place] results from 05/11/24 at [facility] [place] in [facility]. Lab Data Lab results reviewed: Yes I reviewed the patient's lab results Labs: Lab Results 07/03/24 07/03/24 07/03/24 Range/Units 14:53 14:56 16:10 WBC 8.3 (4.0-11.0) 10^3/uL RBC 4.00 L (4.70-6.10) 10^6/uL Hgb 12.3 L (14.0-18.0) g/dL Hct 36.5 L (42.0-54.0) % MCV 91.3 (80.0-94.0) fL MCH 30.8 (25.9-34.0) pg MCHC 33.7 (29.9-35.2) g/dL RDW 16.5 H (11.0-15.0) % Plt Count 151 (150-450) 10^3/uL MPV 10.6 (9.5-13.5) fL Neut % (Auto) 84.4 H (43.0-75.0) % Lymph % (Auto) 11.0 L (20.5-60.0) % [place] % (Auto) 3.4 (1.7-12.0) % Eos % (Auto) 0.0 L (0.9-7.0) % Baso % (Auto) 0.2 (0.2-2.0) % Neut # (Auto) 7.0 H (1.4-6.5) 10^3/uL Lymph # (Auto) 0.9 L (1.2-3.8) 10^3/uL [place] # (Auto) 0.3 (0.3-0.8) 10^3/uL Eos # (Auto) 0.0 (0.0-0.7) 10^3/uL Baso # (Auto) 0.0 (0.0-0.1) 10^3/uL Abs Immat Gran (auto) 0.08 H (0.00-0.03) 10^3/uL Imm/Tot Granulo (auto) 1.0 H (0.0-0.5) % Sodium 138 (136-145) mmol/L Potassium 4.1 (3.5-5.1) mmol/L Chloride 103 (98-107) mmol/L Carbon Dioxide 24.2 (21.0-32.0) mmol/L Anion Gap 14.9 BUN 37.0 H (7.0-18.0) mg/dL Creatinine 1.32 H (0.70-1.30) mg/dL Est GFR ( Amer) >60 (>=60 mL/min/1.73m^2) Est GFR (Non-Af Amer) 52 L (>=60 mL/min/1.73m^2) BUN/Creatinine Ratio 28.0 Glucose 105 (74-106) mg/dL Calcium 8.7 (8.5-10.1) mg/dL Urine Color Dk. yellow (YELLOW) Urine Clarity Clear (CLEAR) Urine pH 6.0 (5.0-9.0) Ur Specific [place] 1.025 (1.005-1.025) Urine Protein 30 A (NEG/TRACE) mg/dL Urine Glucose (UA) Negative (NEGATIVE) mg/dL Urine Ketones Trace A (NEGATIVE) mg/dL Urine Occult Blood Small A (NEGATIVE) Urine Nitrite Negative (NEGATIVE) Urine Bilirubin Small A (NEGATIVE) Urine Urobilinogen 1.0 (0.2-1.0) EU/dL Ur Leukocyte Esterase Negative (NEGATIVE) Urine RBC 2-5 A (0-2) #/HPF Urine WBC 0-2 A (NONE SEEN) #/HPF Ur Squamous Epith Cells Rare (NONE/RARE) #/LPF Urine Crystals None seen (None Seen) #/HPF Urine Bacteria Small A (NONE SEEN) #/HPF Urine Casts Seen A (NONE SEEN) #/LPF Hyaline Casts Few Urine Mucus Trace A (NONE SEEN) Ur Culture Indicated? Yes-[facility] [place] Influenza Type A Ag Negative Influenza Type B Ag Negative SARS-CoV-2 Ag (CV2AG) Negative (NEGATIVE) ECG Data Attestation: ?I have reviewed the pertinent ECG results. Critical Care Time Critical Care Time Critical Care Time: Yes Total Critical Care Time: 35 Attestation: Critical Care Procedure Note Authorized and Performed by: Clemente Plasencia DO Total critical care time: 35 min Due to a high probability of clinically significant, life threatening deterioration, the patient required my highest level of preparedness to intervene emergently and I personally spent this critical care time directly and personally managing the patient. This critical care time included obtaining a history; examining the patient; pulse oximetry; ordering and review of studies; arranging urgent treatment with development of a management plan; evaluation of patient's response to treatment; frequent reassessment; and, discussions with other providers. This critical care time was performed to assess and manage the high probability of imminent, life-threatening deterioration that could result in multi-organ failure. It was exclusive of separately billable procedures and treating other patients and teaching time. Please see MDM section and the rest of the note for further information on patient assessment and treatment. Discharge Plan Discharge Chief Complaint: Weakness Clinical Impression: Community acquired pneumonia, Acute kidney injury, Sepsis Patient Disposition: Admitted As Inpatient Time of Disposition Decision: 21:58 Condition: Fair
[2024-07-03 15:06] LABS: Basophils Percent Auto 0.2 % (0.2-2.0); Hematocrit 36.5 % (42.0-54.0); Hemoglobin 12.3 g/dL (14.0-18.0); Immature Granulocytes Abs Auto 0.08 10^3/uL (0.00-0.03); Lymphocytes Absolute Auto 0.9 10^3/uL (1.2-3.8); Mean Corpuscular HGB Conc 33.7 g/dL (29.9-35.2); Mean Corpuscular Hemoglobin 30.8 pg (25.9-34.0); Mean Corpuscular Volume 91.3 fL (80.0-94.0); Mean Platelet Volume 10.6 fL (9.5-13.5); Monocytes Absolute Auto 0.3 10^3/uL (0.3-0.8); Monocytes Percent Auto 3.4 % (1.7-12.0); Neutrophils Percent Auto 84.4 % (43.0-75.0); Platelet Count 151 10^3/uL (150-450); Red Cell Distribution Width 16.5 % (11.0-15.0); White Blood Count 8.3 10^3/uL (4.0-11.0)
[2024-07-03] MEDS: 0.9 % SODIUM CHLORIDE 500 ML IV (15:08)
[2024-07-03 15:21] LABS: Anion Gap 14.9; Calcium 8.7 mg/dL (8.5-10.1); Carbon Dioxide 24.2 mmol/L (21.0-32.0); Chloride 103 mmol/L (98-107); Estimated GFR (African America >60 (>=60 mL/min/1.73m^2); Estimated GFR (Non-African Ame 52 (>=60 mL/min/1.73m^2); Glucose 105 mg/dL (74-106); Potassium 4.1 mmol/L (3.5-5.1); Sodium 138 mmol/L (136-145)
[2024-07-03 15:24] LABS: Influenza Virus A Antigen Negative; Influenza Virus B Antigen Negative; Internal Control Within Normal Limits; SARS-CoV-2 Ag NEGATIVE (NEGATIVE)
--- OUTSIDE RECORDS SUMMARY | 2024-07-03 16:10 | XMS_ITS ---
Author Name Auto Generated Organization [facility] Care Team Providers Care Senior Production Planner Name Role Phone Vickey Moeller Admitting Unavailable Vickey Moeller Attending Unavailable Ball, Duarte Primary Care Unavailable Gurinder Bartlett Admitting Unavailable Gurinder Bartlett Attending Unavailable Ball, Duarte Primary Care Unavailable Clarke Bertrand Admitting Unavailable Clarke Bertrand Attending Unavailable Clarke Bertrand Admitting Unavailable Clarke Bertrand Attending Unavailable Ball, Duarte Primary Care Unavailable ObermeyerLashell L Admitting Unavailable ObermeyerLashell L Attending Unavailable Clarke Bertrand Attending Unavailable Ball, Duarte Primary Care Unavailable Elza, Clarke Admitting Unavailable Clarke Bertrand Attending Unavailable Clarke Bertrand Admitting Unavailable Ball, Duarte Primary Care Unavailable PROBLEMS DATE TYPE CONDITION / CODE ATTENDING STATUS JAYLEEN RCE 06/06/2024 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 Scanned copy available in EMR. PERFORMED BY: [place] [address] PATHOLOGIST ACTIMIZE ARCHITECT DEE JENNINGS M.D. Performed By: #### PATH TO [facility] #### [address] COMPREHENSIVE METABOLIC PANEL Collected: 05/11/2024 9 :40 AM Status: F Source: [facility] TYPE CODE TESTS RESULT OUT OF RANGE [...] 34-104 U/L Result Comment: PERFORMED BY : [facility] [address] [place] [address] PATHOLOGIST ACTIMIZE ARCHITECT DEE JENNINGS M.D. Performed By: #### CMP, CBC, ESR #### [facility] [address] COMPLETE BLOOD COUNT AUTO DIFF Collected: 05/11/2024 9:40 AM Status: F Source: [facility] TYPE CODE TESTS RESULT OUT OF RANGE [...] Performed By: #### CMP, CBC, ESR #### [facility] [address] ERYTHROCYTE SEDIMENTATION RATE Collected: 05/11/2024 9:40 AM Status: F Source: [facility] TYPE CODE TESTS RESULT OUT OF RANGE REFERENCE UNITS LAB ESR Erythrocyte Sedimentation Rate 74 High 0-19 Result Comment: PERFORMED BY : [place] [address] PATHOLOGIST ACTIMIZE ARCHITECT DEE JENNINGS M.D. Performed By: #### CMP, CBC, ESR #### [facility] [address] COMPREHENSIVE METABOLIC PANEL Collected: 02/24/2024 9 :12 AM Status: F Source: [facility] TYPE CODE TESTS RESULT OUT OF RANGE [...] 34-104 U/L Result Comment: PERFORMED BY : [place] [address] PATHOLOGIST ACTIMIZE ARCHITECT DEE JENNINGS M.D. Performed By: #### CMP, CBC, ESR #### [address] COMPLETE BLOOD COUNT AUTO DIFF Collected: 02/24/2024 9:12 AM Status: F Source: F [facility] TYPE CODE TESTS RESULT OUT OF [...] Performed By: #### CMP, CBC, ESR #### [address] ERYTHROCYTE SEDIMENTATION RATE Collected: 02/24/2024 9:12 AM Status: F Source: [facility] TYPE CODE TESTS RESULT OUT OF RANGE REFERENCE UNITS LAB ESR Erythrocyte Sedimentation Rate 55 High 0-19 Result Comment: PERFORMED BY : [place] [address] PATHOLOGIST ACTIMIZE ARCHITECT DEE JENNINGS M.D. Performed By: #### CMP, CBC, ESR #### [facility] [address] [place] [address] COMPLETE BLOOD COUNT AUTO DIFF Collected: 12/30/2023 9:07 AM Status: F Source: F [facility] TYPE CODE TESTS RESULT OUT OF [...] #### ESR, CMP, B12, CBC, MG #### [address] ERYTHROCYTE SEDIMENTATION RATE Collected: 12/30/2023 9:07 AM Status: F Source: [facility] TYPE CODE TESTS RESULT OUT OF RANGE REFERENCE UNITS LAB ESR Erythrocyte Sedimentation Rate 59 High 0-19 Result Comment: PERFORMED BY : [place] [address] PATHOLOGIST ACTIMIZE ARCHITECT DEE JENNINGS M.D. Performed By: #### ESR, CMP, B12, CBC, MG #### [facility] [address] [place] [address] COMPREHENSIVE METABOLIC PANEL Collected: 12/30/2023 9 :07 AM Status: F Source: [facility] TYPE CODE TESTS RESULT OUT OF RANGE [...] #### ESR, CMP, B12, CBC, MG #### [facility] [address] [place] [address] MAGNESIUM Collected: 4 9:07 AM Status: F Source: [facility] TYPE CODE TESTS RESULT OUT OF RANGE REFERENCE UNITS LAB MG Magnesium 1.8 Low 1.9-2.7 mg/dL Performed By: #### ESR, CMP, B12, CBC, MG #### [facility] [address] [place], [place] [id number] [place] VITAMIN B12 Collected: 4 9:07 AM Status: F Source: [facility] TYPE CODE TESTS RESULT OUT OF RANGE REFERENCE UNITS LAB B12 Vitamin B12 1136 High 180-914 pg/mL Result Comment: PERFORMED BY : [place] [address] PATHOLOGIST ACTIMIZE ARCHITECT DEE JENNINGS M.D. Performed By: #### ESR, CMP, B12, CBC, MG #### [facility] [address] [place] [address] [place] COMPLETE BLOOD COUNT AUTO DIFF Collected: 09/09/2023 10:36 AM Status: F Source: [facility] TYPE CODE TESTS RESULT OUT OF RANGE [...] #### ESR, CMP, B12, CBC, MG #### [facility] [address] [place] [id number] [place] ERYTHROCYTE SEDIMENTATION RATE Collected: 09/09/2023 10:36 AM Status: F Source: [facility] TYPE CODE TESTS RESULT OUT OF RANGE REFERENCE UNITS LAB ESR Erythrocyte Sedimentation Rate 51 High 0-19 Result Comment: PERFORMED BY : [place] [id number] PATHOLOGIST ACTIMIZE ARCHITECT CRISTINA MARINELLI M.D. Performed By: #### ESR, CMP, B12, CBC, MG #### [facility] [address] [place] [id number] [place] COMPREHENSIVE METABOLIC PANEL Collected: 09/09/2023 1 0:36 AM Status: F Source: [facility] TYPE CODE TESTS RESULT OUT OF RANGE [...] #### ESR, CMP, B12, CBC, MG #### [facility] [address] [place] [address] [place] MAGNESIUM Collected: 4 10:36 AM Status: F Source: [facility] TYPE CODE TESTS RESULT OUT OF RANGE REFERENCE UNITS LAB MG Magnesium 1.9 Normal 1.9-2.7 mg/dL Performed By: #### ESR, CMP, B12, CBC, MG #### [facility] [address] [place] [address] [place] VITAMIN B12 Collected: 4 10:36 AM Status: F Source: [facility] TYPE CODE TESTS RESULT OUT OF RANGE REFERENCE UNITS LAB B12 Vitamin B12 939 High 180-914 pg/mL Result Comment: PERFORMED BY : [place] [address] PATHOLOGIST ACTIMIZE ARCHITECT CRISTINA MARINELLI M.D. Performed By: #### ESR, CMP, B12, CBC, MG #### [facility] [address] [place] [id number] [place] COMPLETE BLOOD COUNT AUTO DIFF Collected: 07/15/2023 8:12 AM Status: F Source: F [facility] TYPE CODE TESTS RESULT OUT OF [...] #### ESR, MG, CBC, CMP, B12 #### [facility] [address] ERYTHROCYTE SEDIMENTATION RATE Collected: 07/15/2023 8:12 AM Status: F Source: [facility] TYPE CODE TESTS RESULT OUT OF RANGE REFERENCE UNITS LAB ESR Erythrocyte Sedimentation Rate 44 High 0-19 Result Comment: PERFORMED BY : [place] [address] PATHOLOGIST ACTIMIZE ARCHITECT CRISTINA MARINELLI M.D. Performed By: #### ESR, MG, CBC, CMP, B12 #### [address] COMPREHENSIVE METABOLIC PANEL Collected: 07/15/2023 8 :12 AM Status: F Source: [facility] TYPE CODE TESTS RESULT OUT OF RANGE [...] #### ESR, MG, CBC, CMP, B12 #### [facility] [address] [place] [id number] [place] MAGNESIUM Collected: 4 8:12 AM Status: F Source: [facility] TYPE CODE TESTS RESULT OUT OF RANGE REFERENCE UNITS LAB MG Magnesium 1.8 Low 1.9-2.7 mg/dL Performed By: #### ESR, MG, CBC, CMP, B12 #### [facility] [address] [place] [address] VITAMIN B12 Collected: 4 8:12 AM Status: F Source: [facility] TYPE CODE TESTS RESULT OUT OF RANGE REFERENCE UNITS LAB B12 Vitamin B12 866 Normal 180-914 pg/mL Result Comment: PERFORMED BY : [place] [address] PATHOLOGIST ACTIMIZE ARCHITECT CRISTINA MARINELLI M.D. Performed By: #### ESR, MG, CBC, CMP, B12 #### [facility] [address] [place], [place] [address] [place] ALLERGIES DATE TYPE / CODE NAME / CODE REACTION SEVERITY SOURCE 06/06/2024 Drug Allergy/[id number] (SNOMED CT) No Known Allergies/[id number] 88(RXNORM) Unknown [facility] ENCOUNTERS ADMIT/DISCHARGE ACCOUNT NUMBER ADMITTING ENCOUNTER CLASS LOCATION SOURCE 07/03/2024/ 5 [id number] [facility] 06/06/2024/ 5 [id number] [facility]eller [facility] 05/11/2024/ 5 [id number] Clarke Bertrand [facility] 02/24/2024/ 5 [id number] [facility] [facility] 12/30/2023/ 4 [id number] Lashell Villar [facility] 09/09/2023/ 4 [id number] El[facility] 07/15/2023/ 4 [id number] Elza [facility] PAYERS ENCOUNTER GUARANTOR PAYER SUBSCRIBER SOURCE 07/03/[address] Hart[address] [address]Mez: (HP) Primary Insurance:Self PayPolicy Number: Effective Date:2024-07-03 [facility]20[facility] Larry Hart[address] [address]Eau: (HP) Primary Insurance:MedicarePo licy Number: [id number] Date:2024-05-11 Larry Cid: [id number] [address] [address]Vpk: (HP) [facility] 06/06/2024 Secondary Insurance:[facility] Number: [id number] Date:2024-05-11 Larry Cid: [id number] [address] [place] [address]Mey: () [facility] 06/06/2024 Tertiary Insurance:Self PayPolicy Number: Effective Date:2024-05-11 [facility] 05/11/2024 Larry Pepe [id number] [address] [place] [address]Cva: () Primary Insurance:MedicarePo licy Number: [id number] Date:2024-05-11 Larry HartDOB: [id number] [address] [place] [address]Qvp: () [facility] 05/11/2024 Secondary Insurance:[place] [employer] [place] Number: [id number] Date:2024-05-11 Larry HartB: [id number] [address] [place] [address]Gln: () [facility] 05/11/2024 Tertiary Insurance:Self PayPolicy Number: Effective Date:2024-05-11 [facility] 02/24/2024 Larry [id number] [place] [address]Lfw: () Primary Insurance:MedicarePo licy Number: [id number] Date:2024-02-24 Larry HartDOB: [id number] [address] [place] [address]Yqe: () [facility] 02/24/2024 Secondary Insurance:[employer] [place]Policy Number: [id number] Date:2024-02-24 Larry HartDOB: [id number] [address] [place] [address]Hhk: () [facility] 02/24/2024 Tertiary Insurance:Self PayPolicy Number: Effective Date:2024-02-24 [facility] 12/30/2023 Larry [id number] [address]Zgl: () Primary Insurance:MedicarePo licy Number: [id number] Date:2023-12-30 Larry RoaSantanaB: [id number] [place] [phone]: (HP) [facility] 12/30/2023 Secondary Insurance:[employer] [place]Policy Number: [id number] Date:2023-12-30 Larry RoaSantanaB: [id number] [place] [phone]: () [facility] 12/30/2023 Tertiary Insurance:Self PayPolicy Number: Effective Date:2023-12-30 [facility] 09/09/2023 Larry Roater[address] [place] [phone]: () Primary Insurance:MedicarePo licy Number: [id number] Date:2023-09-09 Larry RoaSantanaB: [id number] [place] [phone]: () [facility] 09/09/2023 Secondary Insurance:[employer] [place]Policy Number: [id number] Date:2023-09-09 Owentonlaine CareyB: [id number] [place] [phone]: () [facility] 09/09/2023 Tertiary Insurance:Self PayPolicy Number: Effective Date:2023-09-09 [facility] 07/15/2023 Larry [id number] [address]Bvd: () Primary Insurance:MedicarePo licy Number: [id number] Date:2023-07-15 Larry CareyB: [id number] [address] [address]Jqe: () [facility] 07/15/2023 Secondary Insurance:[employer] [place]Policy Number: [id number] Date:2023-07-15 Larry Cid: [id number] [address] [address]Rpz: () [facility] 07/15/2023 Tertiary Insurance:Self PayPolicy Number: Effective Date:2023-07-15 [facility]
[2024-07-03 16:25] LABS: Bilirubin Urine SMALL (NEGATIVE); Blood Urine SMALL (NEGATIVE); Clarity Urine CLEAR (CLEAR); Color Urine DK. YELLOW (YELLOW); Glucose Urine UA NEGATIVE (NEGATIVE); Ketones Urine TRACE mg/dL (NEGATIVE); Leukocyte Esterase Urine NEGATIVE (NEGATIVE); Nitrite Urine NEGATIVE (NEGATIVE); Protein Urine 30 mg/dL (NEG/TRACE); Specific Gravity Urine 1.025 (1.005-1.025)
[2024-07-03 16:40] LABS: Bacteria Urine SMALL #/HPF (NONE SEEN); WBC Urine 0-2 #/HPF (NONE SEEN)
[2024-07-03 16:42] LABS: Cast Seen? SEEN #/LPF (NONE SEEN); Crystals Seen? None Seen #/HPF (None Seen); Hyaline Casts Urine FEW; Mucus Urine TRACE (NONE SEEN); Squamous Epithelial Cell Urine RARE #/LPF (NONE/RARE); Urine Culture Indicated YES-FRMC
--- NOTE | 2024-07-03 21:02 | PC.NURSE ---
this patient and his updated that we are still waiting on the x-ray results
[2024-07-03] MEDS: CEFTRIAXONE 1,000 MG in 0.9 % SODIUM CHLORIDE 50 ML 100 MG IV (22:22)
[2024-07-03 22:23] LABS: Lactate/Lactic Acid 1.6 mmol/L (0.4-2.0)
[2024-07-03] MEDS: AZITHROMYCIN 500 MG in 0.9 % SODIUM CHLORIDE 250 ML 250 MG IV (23:08)
--- NOTE | 2024-07-03 23:32 | PC.NURSE ---
this patient awake and alert sitting upright on the bed, this patient 2 nd IV ATB will continued running while transferred upstairs, and this iv site shows no visible signs of infiltration and no pain to this iv with palpation. this patient's also walked up with us to this patient's room and she carried this patient belongings
[2024-07-04] VITALS (12 sets, daily range): BP systolic 99–121; BP diastolic 65–75; PULSE 58–111; TEMP 36.2–36.7; O2SAT 90–94
[2024-07-04] MEDS: ENOXAPARIN SODIUM 40 MG/0.4 ML SYRINGE SUBQ ×2 (01:04→10:22)
[2024-07-04] MEDS: ACETAMINOPHEN 500 MG TABLET 1000 MG PO ×4 (01:04→17:03)
[2024-07-04] MEDS: LACTATED RINGER'S SOLUTION 1,000 ML 50 ML IV ×2 (01:04→21:35)
[2024-07-04 01:57] LABS: Lactate/Lactic Acid 1.4 mmol/L (0.4-2.0)
[2024-07-04 02:03] LABS: C Reactive Protein 29.92 mg/dL (<=0.50)
[2024-07-04 06:18] LABS: Hematocrit 33.4 % (42.0-54.0); Hemoglobin 11.5 g/dL (14.0-18.0); Mean Corpuscular HGB Conc 34.4 g/dL (29.9-35.2); Mean Corpuscular Hemoglobin 31.3 pg (25.9-34.0); Mean Corpuscular Volume 90.8 fL (80.0-94.0); Mean Platelet Volume 10.9 fL (9.5-13.5); Platelet Count 152 10^3/uL (150-450); Red Blood Count 3.68 10^6/uL (4.70-6.10); Red Cell Distribution Width 16.5 % (11.0-15.0); White Blood Count 10.3 10^3/uL (4.0-11.0)
[2024-07-04 06:36] LABS: Alanine Aminotransferase 52 U/L (16-63); Albumin Globulin Ratio 0.5; Albumin Level 1.8 g/dL (3.4-5.0); Alkaline Phosphatase 64 U/L (46-116); Anion Gap 14.6; Aspartate Amino Transferase 127 U/L (15-37); BUN Creatinine Ratio 36.3; Bilirubin Total 0.7 mg/dL (0.2-1.0); Calcium 8.4 mg/dL (8.5-10.1); Carbon Dioxide 24.4 mmol/L (21.0-32.0); Chloride 105 mmol/L (98-107); Estimated GFR (African America >60 (>=60 mL/min/1.73m^2); Estimated GFR (Non-African Ame >60 (>=60 mL/min/1.73m^2); Globulin 3.9 g/dL; Glucose 82 mg/dL (74-106); Magnesium 1.7 mg/dL (1.8-2.4); Sodium 140 mmol/L (136-145); Total Protein 5.7 g/dL (6.4-8.2)
[2024-07-04 06:42] LABS: Band Neutrophils Absolute 2.6 10^3/uL (0.0-0.3); Lymphocytes Absolute Manual 1.95 10^3/uL (1.20-3.80); Monocytes Absolute Manual 1.23 10^3/uL (0.30-0.80); Segmented Neut Absolute Manual 4.53 10^3/uL (1.4-6.5)
[2024-07-04 12:03] LABS: Glucometer 85 mg/dL (74-106)
[2024-07-04 12:03] LABS: Glucometer 86 mg/dL (74-106)
[2024-07-04] MEDS: METHYLPREDNISOLONE SOD SUCC PF 125 MG/2 ML VIAL 60 MG IVP ×3 (12:49→23:37)
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
[2024-07-04] MEDS: IPRATROPIUM/ALBUTEROL SULFATE 3 ML AMPUL.NEB IH ×3 (15:56→22:43)
[2024-07-04] MEDS: ONDANSETRON PF 4 MG/2 ML VIAL IV (18:20)
[2024-07-04] MEDS: PANTOPRAZOLE SODIUM 40 MG TABLET.DR PO (21:35)
[2024-07-04] MEDS: CEFTRIAXONE 1,000 MG in 0.9 % SODIUM CHLORIDE 50 ML 100 MG IV (21:35)
[2024-07-04] MEDS: AZITHROMYCIN 500 MG in 0.9 % SODIUM CHLORIDE 250 ML 250 MG IV (22:29)
[2024-07-05] VITALS (9 sets, daily range): BP systolic 119–134; BP diastolic 77–85; PULSE 72–96; TEMP 36.2–36.7; O2SAT 90–96
[2024-07-05] MEDS: ACETAMINOPHEN 500 MG TABLET 1000 MG PO ×4 (02:24→21:37)
[2024-07-05] MEDS: IPRATROPIUM/ALBUTEROL SULFATE 3 ML AMPUL.NEB IH ×5 (03:55→23:21)
[2024-07-05] MEDS: METHYLPREDNISOLONE SOD SUCC PF 125 MG/2 ML VIAL 60 MG IVP ×4 (05:21→23:20)
[2024-07-05 05:33] LABS: Hematocrit 37.4 % (42.0-54.0); Hemoglobin 12.7 g/dL (14.0-18.0); Mean Corpuscular Hemoglobin 30.8 pg (25.9-34.0); Mean Corpuscular Volume 90.8 fL (80.0-94.0); Mean Platelet Volume 10.8 fL (9.5-13.5); Platelet Count 185 10^3/uL (150-450); Red Blood Count 4.12 10^6/uL (4.70-6.10); Red Cell Distribution Width 16.8 % (11.0-15.0); White Blood Count 7.5 10^3/uL (4.0-11.0)
[2024-07-05 05:36] LABS: Alanine Aminotransferase 72 U/L (16-63); Albumin Globulin Ratio 0.5; Albumin Level 2.2 g/dL (3.4-5.0); Alkaline Phosphatase 75 U/L (46-116); Anion Gap 18.9; Aspartate Amino Transferase 103 U/L (15-37); BUN Creatinine Ratio 36.5; Bilirubin Total 0.5 mg/dL (0.2-1.0); Calcium 9.1 mg/dL (8.5-10.1); Carbon Dioxide 22.8 mmol/L (21.0-32.0); Chloride 102 mmol/L (98-107); Estimated GFR (African America >60 (>=60 mL/min/1.73m^2); Estimated GFR (Non-African Ame 55 (>=60 mL/min/1.73m^2); Globulin 4.7 g/dL; Glucose 139 mg/dL (74-106); Magnesium 1.9 mg/dL (1.8-2.4); Potassium 3.7 mmol/L (3.5-5.1); Sodium 140 mmol/L (136-145); Total Protein 6.9 g/dL (6.4-8.2)
[2024-07-05 06:20] LABS: Monocytes Absolute Manual 0.22 10^3/uL (0.30-0.80); Segmented Neut Absolute Manual 6.67 10^3/uL (1.4-6.5)
--- OUTSIDE RECORDS SUMMARY | 2024-07-05 07:12 | XMS_ITS | Clinical Summary ---
Author Organization [facility] tem Address [id number] [place] [address] Care Team Providers Care Printing Roller Polisher Name Role Phone Duarte Herrmann Primary Care Provider [phone] Allergies No known active allergies Medications FOLIC ACID ORAL Take 800 mcg by mouth daily. Active adalimumab (HUMIRA) 40 mg/0.8 mL pen injector kit Inject 40 mg under the skin. Active methotrexate 2.5 mg chemo tablet Take 6 tablets by mouth once a week Active omeprazole (PriLOSEC) 40 mg capsule Take 40 mg by mouth every morning before breakfast. Active multivitamin capsule Take 1 capsule by mouth daily. Active Active Problems Problem Noted Date Diagnosed Date Recurrent right inguinal hernia 05/12/2018 Supraumbilical hernia 05/12/2018 Family History Medical History Relation Name Comments Heart attack Father Cancer Mother Heart disease Mother Relation Name Status Comments Father Mother Social History Tobacco Use Types Packs/Day Years Used Date Smoking Tobacco: Never Smokeless Tobacco: Never Alcohol Use Standard Drinks/Week Comments No 0 (1 standard drink = 0.6 oz pur e alcohol) AUDIT-C Answer Date Recorded Frequency of Alcohol Consumption Never 03/24/2018 Average Number of Drinks Not on file 019 Frequency of Binge Drinking Not on file 03/12 Childcare Answer Date Recorded Childcare Unknown 07/21/2018 Employment Answer Date Recorded Employment Unknown 07/21/2018 Purpose - Life Answer Date Recorded Purpose and direction in life Unknown Sex and Gender Information Value Date Recorded Sex Assigned at Not on file Legal Sex Male 11:39 AM EDT Gender Identity Not on file Sexual Orientation Not on file Last Filed Vital Signs Vital Sign Reading Time Taken Comments Blood Pressure 171/112 05/26/2018 1:55 PM EDT Pulse 98 05/26/2018 1:55 PM EDT Temperature 36.1 C (97 F) 05/26/2018 2:00 PM EDT Respiratory Rate 13 05/26/2018 1:55 PM EDT Oxygen Saturation 96% 05/26/2018 1:55 PM EDT Inhaled Oxygen Concentration - - Weight 88.9 kg (196 lb) 06/08/2018 1:34 PM EDT Height 190.5 cm (6' 3 ) 06/08/2018 1:34 PM EDT Body Mass Index 24.5 06/08/2018 1:34 PM EDT Plan of Treatment Health Maintenance Due Date Last Done Comments Depression Screening 1952 Tobacco Screening 1952 DTaP,Tdap and Td Vaccines (1 - Tdap) 1960 Zoster (Shingles) Vaccine (1 of 2) 10/11/1991 Fall Risk Screening 2006 Influenza Vaccine 2024 Medical Devices Implanted Type Area Payroll Supervisor Device Identifier Shelf Expiration Date Model / Serial / Lot Mesh Open Prgrp Rect 15x9cm - [id number] - [id number] Implanted:Qty: 1 on 05/26/2018 by Vasiliy Hernández MD at [facility] Mesh Right: Inguinal [employer] [facility] 11/08/2022 [id number] / [id number] / [id number] Mesh Pp Macro 15x7.5cm X3 Rpl [id number] - [id number] - [id number] Implanted:Qty: 1 on 05/26/2018 by Vasiliy Hernández MD at [facility] Mesh N/A: Abdomen [employer] [facility] 02/08/2022 [id number] / [id number] / [id number] Mesh Pp Macro 15x7.5cm X3 Rpl [id number] - [id number] - [id number] Implanted:Qty: 1 on 05/26/2018 by Vasiliy Hernández MD at [facility] Mesh Left: Inguinal [employer] [facility] 11/08/2022 [id number] / [id number] / [id number] Insurance Care Teams Printing Roller Polisher Relationship Specialty Start Date End Date Duarte Herrmann DO [address] [place] [id number] PCP - General Internal Medicine 03/19/18
[2024-07-05] MEDS: AMLODIPINE BESYLATE 5 MG TABLET PO (08:20)
[2024-07-05] MEDS: FOLIC ACID 1 MG TABLET PO (08:20)
[2024-07-05] MEDS: ENOXAPARIN SODIUM 40 MG/0.4 ML SYRINGE SUBQ (08:20)
[2024-07-05] MEDS: LOSARTAN POTASSIUM 25 MG TABLET PO (08:20)
[2024-07-05] MEDS: CALCIUM CARBONATE 500 MG (200MG ELEMENTAL) TAB CHEW PO (08:20)
[2024-07-05] MEDS: PANTOPRAZOLE SODIUM 40 MG TABLET.DR PO ×2 (08:20→21:36)
[2024-07-05] MEDS: METHOTREXATE SODIUM 2.5 MG TABLET 25 MG PO (08:36)
--- NOTE | 2024-07-05 10:41 | CT_ITS ---
The [address] [address] Patient Name: SHIRLEY NIETO MRN: [id number] date: 1940 Sex: M Assigned Patient Location: [place] Current Patient Location: [place] Accession/Order Number: [id number] Exam Date: 07/05/2024 12:04 Report Date: 07/05/2024 12:24 At the request of: FRANNY STEWARD MD Procedure: CT chest wo con CT CHEST WITHOUT CONTRAST CLINICAL DATA: Shortness of breath. COMPARISON: Chest x-ray 07/03/2024 Spiral images were obtained through the chest without contrast. Images were reviewed using both narrow and wide window settings. This CT exam was performed using one or more following dose reduction techniques: Automated exposure control, adjustment of the mA and/or kV according to patient size, or use of iterative reconstruction technique. The heart is borderline prominent. No pericardial effusion is seen. There is mild coronary artery disease. The ascending aorta is mildly ectatic. Minor atherosclerotic plaque is visualized at the aortic arch. There are scattered calcified and noncalcified mediastinal lymph nodes. There are also calcified right hilar nodes. There is mild gaseous distention of the upper thoracic esophagus. Mild bilateral gynecomastia is seen. There is a small to moderate-sized hiatal hernia. There are multiple old bilateral displaced rib fractures. There is subtle dextroscoliotic curvature. Mild degenerative changes are seen at the thoracic spine with endplate spurring and Schmorl's nodes. Fibrocalcific scarring is seen at the lung apices, right greater the left. Groundglass opacities are visualized at the lower lungs, left greater than right and posterior lingula. There may be some lower lobe bronchiectasis. Linear density with associated calcification is visualized at the anterior right midlung. A small area of more focal consolidation is visualized at the left posterior costophrenic angle. There is no pleural effusion or pneumothorax. There is pleural-based nodularity within the posterior lingula along along the lateral chest wall. There is also an additional separate tiny 5 mm nodule in close proximity and another superior to this in the upper lobe on axial image 48. Other smaller pleural-based nodular densities are seen bilaterally. Limited cuts through the upper abdomen show slight left adrenal limb thickening. There are calcified splenic granulomas. There is interposition of colon anterior to the liver. CT/CT chest wo con IMPRESSION: BORDERLINE CARDIOMEGALY. NONSPECIFIC CALCIFIED AND NONCALCIFIED MEDIASTINAL AND RIGHT HILAR LYMPH NODES. HIATAL HERNIA. MULTIPLE OLD BILATERAL RIB FRACTURES. BILATERAL PARENCHYMAL CHANGES, DESCRIBED. MOST OF THIS HAS A CHRONIC APPEARANCE ALTHOUGH THERE ARE NO PRIORS FOR CONFIRMATION. SUPERIMPOSED INFECTIOUS OR INFLAMMATORY CHANGE AT THE LOWER LOBES, PRIMARILY ON THE LEFT IS NOT EXCLUDED. CORRELATION WILL BE NEEDED. PULMONARY NODULARITY. FOLLOW-UP IS RECOMMENDED TO ASSESS STABILITY. Impression dictated by: Mirta Aleman M.D. 07/05/2024 12:24 PM Dictation Location: [place] [address] Electronically authenticated by: [id number] Y Date: 07/05/2024 12:24
--- NOTE | 2024-07-05 10:55 | PM.PN ---
Progress Note: Subjective Subjective Interval history: Patient slowly improving. Continued SOB with minimal exertion. Chest tight and cough productive sputum. Afebrile and normal WBC. Decreased appetite but no emesis or diarrhea. No chest pain or palpitations. Strength slowly improving. Exam Constitutional Vital Signs, click to edit/add: Last Vital Signs Temp 97.3 F L 07/05/24 07:13 Pulse 88 07/05/24 07:13 Resp 20 07/05/24 07:13 BP 134/85 07/05/24 07:13 Pulse Ox 91 L 07/05/24 07:13 O2 Del Method Room Air 07/05/24 07:13 Documenting provider has reviewed patient's vital signs: yes Common normals: no apparent distress, oriented x3 and alert HENMT Common normals: normocephalic Eye Common normals: PERRL and EOMs intact bilaterally Respiratory Auscultation: rhonchi and wheezes Cardio Common normals: regular rate, regular rhythm, no gallops, no murmurs and no rub GI Common normals: Normal to inspection, nondistended, normoactive bowel sounds present and non-tender Extremity Common normals: no pedal edema Progress Note: Objective Labs Labs: Short CBC 07/05/24 Range/Units 04:37 WBC 7.5 (4.0-11.0) 10^3/uL Hgb 12.7 L (14.0-18.0) g/dL Hct 37.4 L (42.0-54.0) % Plt Count 185 (150-450) 10^3/uL BMP 07/05/24 04:37 Sodium 140 Potassium 3.7 Chloride 102 Carbon Dioxide 22.8 BUN 46.0 H Creatinine 1.26 Glucose 139 H Calcium 9.1 Liver Function 07/05/24 Range/Units 04:37 Total Bilirubin 0.5 (0.2-1.0) mg/dL AST 103 H (15-37) U/L ALT 72 H (16-63) U/L Alkaline Phosphatase 75 (46-116) U/L Albumin 2.2 L (3.4-5.0) g/dL Progress Note: A&P Assessment and Plan (1) Community acquired pneumonia: (2) Acute exacerbation of chronic obstructive pulmonary disease (COPD): (3) Acute kidney injury: (4) HTN (hypertension): Plan Slowly improving and continue antibiotics, steroids, and breathing treatments. Continues to have coarse BS and check CT chest. Saline lock IV. Wean O2 as needed. Continue PT/OT for weakness. Monitor labs and vitals.
--- NOTE | 2024-07-05 11:14 | CM.NOTE ---
Rounds made with Dr. Gates. Dr. Gates reviews plan of care with Mary Kate Hailey. Saline lock IVF and CT chest to be ordered. No discharge today.
[2024-07-05 12:40] LABS: Glucometer 146 mg/dL (74-106)
--- NOTE | 2024-07-05 14:46 | SWNOTE1 ---
JONNATHAN met with pt in room. Pt lives at home with and is independent. Pt says he has a cane at home to use just in case. Pt has been to outpatient therapy in past. Pt has 17 stairs but he has been sleeping on first floor. Pt voiced walking to his mailbox daily and does home exercises. SW spoke to pt about OT recommendation of rehab. Pt would not want to go to rehab, instead do home health. SW advised that PT did recommend home health. Pt voiced wishing his was here and SW called during conversation to update her. She was in agreement for home health services. JONNATHAN let her know we have a list from Medicare.gov. She voiced she will be here around 6p. SW left list in room for pt . SW advised that case management will follow up tomorrow to see what home health company they would like.
--- NOTE | 2024-07-05 14:51 | SWNOTE1 ---
Important Message from Medicare reviewed and discussed with patient. Pt. verbalized understanding and signed the form. Original given to patient and copy placed in patient?s chart.
[2024-07-05] MEDS: GUAIFENESIN 600 MG TAB.ER.12H PO ×2 (17:01→21:37)
[2024-07-05] MEDS: CEFTRIAXONE 1,000 MG in 0.9 % SODIUM CHLORIDE 50 ML 100 MG IV (21:37)
[2024-07-05] MEDS: AZITHROMYCIN 500 MG in 0.9 % SODIUM CHLORIDE 250 ML 250 MG IV (22:27)
[2024-07-06] VITALS (12 sets, daily range): BP systolic 126–154; BP diastolic 71–97; PULSE 51–94; TEMP 36.3–36.8; O2SAT 91–95; BMI 23.3
[2024-07-06] MEDS: ACETAMINOPHEN 500 MG TABLET 1000 MG PO ×3 (02:35→14:55)
--- NOTE | 2024-07-06 03:20 | PC.NURSE ---
Pt alert and oriented, assisted to the bathroom with walker and standby assist with RN. Pt had tylenol due at this time and voiced that he wanted it now. RN told the patient to pull the call light cord before getting up and she would go get his medication and come back. Pt voiced understanding and stated he would not get up on his own. Before RN could get back to patient's room, pt had an unwitnessed fall in the bathroom. Pt was found on his butt between the toilet and the shower. Pt states he did not hit his head and caught myself with the bar on the wall. Pt vital signs were stable and pt has no complaints of pain at this time. Pt alert and oriented after the fall and was found to have a quarter size abrasion on the right side of his middle back. Pt denies any complaints of dizziness or lightheadedness. Pt states he was going to try to wash his hands before RN came back and when he turned to pull the cord he fell. Pt was then helped to standing position with x2 assist and helped into the chair with the chair alarm on and functioning and call light in reach. Night hospitalist was notified after patient was settled in the chair. Q4 neuro checks ordered.
[2024-07-06] MEDS: IPRATROPIUM/ALBUTEROL SULFATE 3 ML AMPUL.NEB IH ×5 (03:57→23:26)
[2024-07-06 05:12] LABS: Basophils Percent Auto 0.1 % (0.2-2.0); Hematocrit 35.8 % (42.0-54.0); Immature Granulocytes Abs Auto 0.03 10^3/uL (0.00-0.03); Immature Granulocytes Pct Auto 0.4 % (0.0-0.5); Lymphocytes Absolute Auto 0.6 10^3/uL (1.2-3.8); Lymphocytes Percent Auto 7.5 % (20.5-60.0); Mean Corpuscular HGB Conc 33.5 g/dL (29.9-35.2); Mean Corpuscular Hemoglobin 30.3 pg (25.9-34.0); Mean Corpuscular Volume 90.4 fL (80.0-94.0); Mean Platelet Volume 10.6 fL (9.5-13.5); Monocytes Absolute Auto 0.3 10^3/uL (0.3-0.8); Neutrophils Absolute Auto 7.1 10^3/uL (1.4-6.5); Platelet Count 175 10^3/uL (150-450); Red Blood Count 3.96 10^6/uL (4.70-6.10); Red Cell Distribution Width 16.6 % (11.0-15.0)
[2024-07-06 05:29] LABS: Alanine Aminotransferase 69 U/L (16-63); Albumin Globulin Ratio 0.5; Albumin Level 2.1 g/dL (3.4-5.0); Alkaline Phosphatase 71 U/L (46-116); Anion Gap 15.2; Aspartate Amino Transferase 64 U/L (15-37); BUN Creatinine Ratio 51.8; Bilirubin Total 0.5 mg/dL (0.2-1.0); Calcium 9.3 mg/dL (8.5-10.1); Carbon Dioxide 23.3 mmol/L (21.0-32.0); Chloride 103 mmol/L (98-107); Estimated GFR (African America >60 (>=60 mL/min/1.73m^2); Estimated GFR (Non-African Ame >60 (>=60 mL/min/1.73m^2); Globulin 4.3 g/dL; Glucose 145 mg/dL (74-106); Magnesium 2.1 mg/dL (1.8-2.4); Potassium 3.5 mmol/L (3.5-5.1); Sodium 138 mmol/L (136-145); Total Protein 6.4 g/dL (6.4-8.2)
[2024-07-06] MEDS: METHYLPREDNISOLONE SOD SUCC PF 125 MG/2 ML VIAL 60 MG IVP ×4 (05:39→23:48)
[2024-07-06 08:51] LABS: A. calcoaceticus-baumannii Cpx NOT DETECTED (NOT DETECTE); Bacteroides fragilis NOT DETECTED (NOT DETECTE); Candida albicans NOT DETECTED (NOT DETECTE); Candida auris NOT DETECTED (NOT DETECTE); Candida glabrata NOT DETECTED (NOT DETECTE); Candida krusei NOT DETECTED (NOT DETECTE); Candida parapsilosis NOT DETECTED (NOT DETECTE); Candida tropicalis NOT DETECTED (NOT DETECTE); Cryptococcus neoformans/gattii NOT DETECTED (NOT DETECTE); Enterobacter cloacae complex NOT DETECTED (NOT DETECTE); Enterobacterales NOT DETECTED (NOT DETECTE); Enterococcus faecalis NOT DETECTED (NOT DETECTE); Enterococcus faecium NOT DETECTED (NOT DETECTE); Haemophilus influenzae NOT DETECTED (NOT DETECTE); Klebsiella aerogenes NOT DETECTED (NOT DETECTE); Klebsiella pneumoniae group NOT DETECTED (NOT DETECTE); Listeria monocytogenes NOT DETECTED (NOT DETECTE); Neisseria meningitidis NOT DETECTED (NOT DETECTE); Proteus spp. NOT DETECTED (NOT DETECTE); Pseudomonas aeruginosa NOT DETECTED (NOT DETECTE); Salmonella spp. NOT DETECTED (NOT DETECTE); Serratia marcescens NOT DETECTED (NOT DETECTE); Staphylococcus epidermidis NOT DETECTED (NOT DETECTE); Staphylococcus lugdunensis NOT DETECTED (NOT DETECTE); Staphylococcus spp. NOT DETECTED (NOT DETECTE); Stenotrophomonas maltophilia NOT DETECTED (NOT DETECTE); Streptococcus agalactiae NOT DETECTED (NOT DETECTE); Streptococcus pneumoniae NOT DETECTED (NOT DETECTE); Streptococcus pyogenes NOT DETECTED (NOT DETECTE); Streptococcus spp. NOT DETECTED (NOT DETECTE)
[2024-07-06] MEDS: AMLODIPINE BESYLATE 5 MG TABLET PO (09:05)
[2024-07-06] MEDS: GUAIFENESIN 600 MG TAB.ER.12H PO ×2 (09:05→21:16)
[2024-07-06] MEDS: PANTOPRAZOLE SODIUM 40 MG TABLET.DR PO ×2 (09:05→21:16)
[2024-07-06] MEDS: FOLIC ACID 1 MG TABLET PO (09:05)
[2024-07-06] MEDS: ENOXAPARIN SODIUM 40 MG/0.4 ML SYRINGE SUBQ (09:05)
[2024-07-06] MEDS: LOSARTAN POTASSIUM 25 MG TABLET PO (09:05)
--- NOTE | 2024-07-06 10:12 | PM.PN ---
Progress Note: Subjective Subjective Interval history: Patient continues to improve. Less SOB cough improved. Occasional sputum. Afebrile and normal WBC. Decreased appetite but no emesis or diarrhea. No chest pain or palpitations. Continues too have weakness and hard to get around room. Overnight was standing at sink and legs became weak and fell to ground. No LOC and did not hit head or injury self. Exam Constitutional Vital Signs, click to edit/add: Last Vital Signs Temp 97.4 F L 07/06/24 07:31 Pulse 85 07/06/24 07:31 Resp 19 07/06/24 07:31 BP 136/74 07/06/24 09:05 Pulse Ox 94 L 07/06/24 07:49 O2 Del Method Room Air 07/06/24 07:49 Documenting provider has reviewed patient's vital signs: yes Common normals: no apparent distress, oriented x3 and alert HENMT Common normals: normocephalic Eye Common normals: PERRL and EOMs intact bilaterally Respiratory Auscultation: rhonchi, wheezes and diminished lung sounds Cardio Common normals: regular rate, regular rhythm, no gallops, no murmurs and no rub GI Common normals: Normal to inspection, nondistended, normoactive bowel sounds present and non-tender Extremity Common normals: no pedal edema Progress Note: Objective Labs Labs: Short CBC 07/06/24 Range/Units 04:53 WBC 8.0 (4.0-11.0) 10^3/uL Hgb 12.0 L (14.0-18.0) g/dL Hct 35.8 L (42.0-54.0) % Plt Count 175 (150-450) 10^3/uL BMP 07/06/24 04:53 Sodium 138 Potassium 3.5 Chloride 103 Carbon Dioxide 23.3 BUN 44.0 H Creatinine 0.85 Glucose 145 H Calcium 9.3 Liver Function 07/06/24 Range/Units 04:53 Total Bilirubin 0.5 (0.2-1.0) mg/dL AST 64 H (15-37) U/L ALT 69 H (16-63) U/L Alkaline Phosphatase 71 (46-116) U/L Albumin 2.1 L (3.4-5.0) g/dL Progress Note: A&P Assessment and Plan (1) Community acquired pneumonia: (2) Acute exacerbation of chronic obstructive pulmonary disease (COPD): (3) Acute kidney injury: (4) HTN (hypertension): Plan Patient slowly improving and continue antibiotics, steroids, and breathing treatments. Continue PEP and monitor SpO2. Continue PT/OT for weakness. May need SNF upon discharge if remains unsteady and fall risk.
--- NOTE | 2024-07-06 10:26 | CM.NOTE ---
Rounds made with Dr. Gates, pt up in chair this AM. Pt states breathing has imporoved and would consider himself at baseline. Pt continues with generalized weakness, Dr. Gates discussed possible skilled therapy at discharge. Pt would like to discuss this with his .
[2024-07-06 11:05] LABS: Source Blood
--- NOTE | 2024-07-06 11:52 | CM.NOTE ---
Spoke with pt regarding PT and OT recommendations, pt requesting to go home with HH services. Pt would like Case Management to speak with his . Case Management called pt's and she also thinks HH would be a good choice. states she is home with Larry at all times, he would not be alone. Pt's is on her way to hospital and will discuss options with Larry and let Case Management know their decision.
--- NOTE | 2024-07-06 11:54 | PT.DAILY ---
Physical Therapy Daily Note PT Daily Note/Assess Start: 07/06/24 11:50 Freq: Status: Active Protocol: Document 07/06/24 11:51 EMELY (Rec: 07/06/24 11:54 EMELY [id number]) Physical Therapy Daily Note/Assessment Time In/Time Out Time In 11:25 Time Out 01:40 Pain In Pain N/A Pain Out Pain N/A Subjective Subjective Pt sitting in BS chair upon arrival. Agrees to PT. Therapeutic Exercise Time Therapeutic Exercise 5 Minutes (minutes) Therapeutic Exercise 0 Units Therapeutic Exercise Treatment Therapeutic Exercise Standing marches and HS curls at RW with B UE support Treatment 10x prior to gait. Seated ex complete 10x ea to improve strength, once returned to room from [facility]. Therapeutic Activity Time Therapeutic Activity 8 Minutes (minutes) Therapeutic Activity 1 Units Therapeutic Activity Treatment Chair Transfer Standby Assistance Ability Therapeutic Activity Sit>stand sba. Static standing at RW 1 min - bilat UE Comments support no LOB. Standing ex complete with CGA due to apprehension. Pt amb 120' with RW, CGA for safety. Occ vc to keep rw close. Returned to room in BS chair for seated ex. Remains in BS chair with chair alarm set and call light within reach. Total Physical Therapy Time Total Therapy 13 Minutes Total Physical 1 Therapy Units Summary Daily Note Summary Improved gait endurance.
--- NOTE | 2024-07-06 13:56 | CM.NOTE ---
Spoke with pt and regarding discharge planning, skilled vs HH services. Both are in agreement for HH services and refuse skilled. Pt and would like to speak with their children on deciding HH company. was provided with Medicare 5 star ratings for HH companies. Case management will speak with tomorrow for final choice.
--- NOTE | 2024-07-06 19:57 | DIETREC ---
Recommend 237 mL Ensure High PRO BID.
[2024-07-06] MEDS: CEFTRIAXONE 1,000 MG in 0.9 % SODIUM CHLORIDE 50 ML 100 MG IV (21:18)
[2024-07-06] MEDS: AZITHROMYCIN 500 MG in 0.9 % SODIUM CHLORIDE 250 ML 250 MG IV (23:48)
[2024-07-07] MEDS: ACETAMINOPHEN 500 MG TABLET 1000 MG PO ×2 (02:06→09:02)
[2024-07-07 04:00] VITALS: BP 137/90; PULSE 85; TEMP 36.6; O2SAT 91
[2024-07-07 05:22] LABS: Basophils Percent Auto 0.2 % (0.2-2.0); Hematocrit 37.4 % (42.0-54.0); Hemoglobin 12.5 g/dL (14.0-18.0); Immature Granulocytes Abs Auto 0.04 10^3/uL (0.00-0.03); Immature Granulocytes Pct Auto 0.8 % (0.0-0.5); Lymphocytes Absolute Auto 0.5 10^3/uL (1.2-3.8); Lymphocytes Percent Auto 11.3 % (20.5-60.0); Mean Corpuscular HGB Conc 33.4 g/dL (29.9-35.2); Mean Corpuscular Hemoglobin 30.2 pg (25.9-34.0); Mean Corpuscular Volume 90.3 fL (80.0-94.0); Mean Platelet Volume 11.2 fL (9.5-13.5); Monocytes Absolute Auto 0.2 10^3/uL (0.3-0.8); Monocytes Percent Auto 3.8 % (1.7-12.0); Neutrophils Percent Auto 83.9 % (43.0-75.0); Platelet Count 182 10^3/uL (150-450); Red Blood Count 4.14 10^6/uL (4.70-6.10); Red Cell Distribution Width 16.7 % (11.0-15.0); White Blood Count 4.8 10^3/uL (4.0-11.0)
[2024-07-07] MEDS: IPRATROPIUM/ALBUTEROL SULFATE 3 ML AMPUL.NEB IH ×2 (05:22→11:27)
[2024-07-07] MEDS: METHYLPREDNISOLONE SOD SUCC PF 125 MG/2 ML VIAL 60 MG IVP (05:22)
[2024-07-07 05:23] VITALS: PULSE 90; O2SAT 95
[2024-07-07 06:38] LABS: Alanine Aminotransferase 83 U/L (16-63); Albumin Globulin Ratio 0.5; Alkaline Phosphatase 65 U/L (46-116); Anion Gap 17.1; Aspartate Amino Transferase 51 U/L (15-37); BUN Creatinine Ratio 43.8; Bilirubin Total 0.4 mg/dL (0.2-1.0); Calcium 8.8 mg/dL (8.5-10.1); Carbon Dioxide 23.3 mmol/L (21.0-32.0); Chloride 105 mmol/L (98-107); Estimated GFR (African America >60 (>=60 mL/min/1.73m^2); Estimated GFR (Non-African Ame >60 (>=60 mL/min/1.73m^2); Globulin 3.9 g/dL; Glucose 145 mg/dL (74-106); Magnesium 2.5 mg/dL (1.8-2.4); Potassium 3.4 mmol/L (3.5-5.1); Sodium 142 mmol/L (136-145); Total Protein 5.9 g/dL (6.4-8.2)
--- NOTE | 2024-07-07 07:31 | CM.NOTE ---
Pt's called and requesting [address] for discharge planning. New Referral has been faxed to [address]
[2024-07-07 07:38] VITALS: BP 126/80; PULSE 76; TEMP 36.4; O2SAT 94
[2024-07-07] MEDS: FOLIC ACID 1 MG TABLET PO (09:02)
[2024-07-07] MEDS: GUAIFENESIN 600 MG TAB.ER.12H PO (09:02)
[2024-07-07] MEDS: LOSARTAN POTASSIUM 25 MG TABLET PO (09:02)
[2024-07-07] MEDS: PANTOPRAZOLE SODIUM 40 MG TABLET.DR PO (09:02)
[2024-07-07] MEDS: AMLODIPINE BESYLATE 5 MG TABLET PO (09:02)
[2024-07-07] MEDS: ENOXAPARIN SODIUM 40 MG/0.4 ML SYRINGE SUBQ (09:03)
--- NOTE | 2024-07-07 09:03 | CM.NOTE ---
[facility] is able to accept pt for HH services at discharge. Updated pt and .
--- NOTE | 2024-07-07 10:37 | PM.DS1 ---
DS: Providers Provider Date of admission: 07/04/24 12:03 Primary care physician: Duarte Herrmann DO Consults: 07/03/24 Consult to Dietitian Routine Reason for consultation: weight loss 07/03/24 23:33 Consult to Director [employer] Routine Has provider been notified: No Reason for consult:: Intermediate Other reason:: discharge planning 07/04/24 13:45 Occupational Therapy Eval and Treat Routine Reason for consultation: weakness Physical Therapy Eval and Treat Routine Reason for consultation: Weakness DS: Diagnosis Discharge Diagnosis (1) Community acquired pneumonia: (2) Acute exacerbation of chronic obstructive pulmonary disease (COPD): (3) Acute kidney injury: (4) HTN (hypertension): DS: Summary Hospital Course Hospital Course: Reason for admission: See H&P for details. 83 y/o male with a history of COPD to ER with weakness. Hastn't felt well for past 1-2 weeks. Developed cough and sputum. Increased SOB and worsening cough. To ER and WBC normal. Afebrile and normal SpO2 on room air. Chest x-ray showed infiltrate and admitted. Hospital course: Started rocephin and zithromax. Resumed home medication. Started solu-medrol and DuoNeb for COPD exacerbation. Started PT/OT for weakness. Gradually improved. Maintained normal SpO2 on room air. SOB and cough improved. Continued to have weakness and difficulty ambulating. Minimal SOB with exertion. Moving okay and did not want SNF. Discharged home with home health in stable condition. Complete antibiotics and steroids as directed. Resume home medication without change. Follow up with PCP in 1-2 weeks. Time Spent with Patient Time attestation: Total time spent providing and/or coordinating discharge services: Time spent: greater than 30 minutes Exam Constitutional Vital Signs, click to edit/add: Last Vital Signs Temp 97.6 F 07/07/24 07:38 Pulse 76 07/07/24 07:38 Resp 18 07/07/24 07:38 BP 126/80 07/07/24 07:38 Pulse Ox 94 L 07/07/24 07:38 O2 Del Method Room Air 07/07/24 07:38 Documenting provider has reviewed patient's vital signs: yes Common normals: no apparent distress, oriented x3 and alert HENMT Common normals: normocephalic Eye Common normals: PERRL and EOMs intact bilaterally Respiratory Auscultation: rhonchi lower bilaterally; no wheezes Cardio Common normals: regular rate, regular rhythm, no gallops, no murmurs and no rub GI Common normals: Normal to inspection, nondistended, normoactive bowel sounds present and non-tender Extremity Common normals: no pedal edema DS: Data Data Completed and Pending Labs on day of discharge: Labs from last 24 hours 07/07/24 07/07/24 07/03/24 06:20 04:42 21:59 WBC 4.8 RBC 4.14 L Hgb 12.5 L Hct 37.4 L MCV 90.3 MCH 30.2 MCHC 33.4 RDW 16.7 H Plt Count 182 MPV 11.2 Neut % (Auto) 83.9 H Lymph % (Auto) 11.3 L Alger % (Auto) 3.8 Eos % (Auto) 0.0 L Baso % (Auto) 0.2 Neut # (Auto) 4.0 Lymph # (Auto) 0.5 L Alger # (Auto) 0.2 L Eos # (Auto) 0.0 Baso # (Auto) 0.0 Abs Immat Gran (auto) 0.04 H Imm/Tot Granulo (auto) 0.8 H Sodium 142 Potassium 3.4 L Chloride 105 Carbon Dioxide 23.3 Anion Gap 17.1 BUN 35.0 H Creatinine 0.80 Est GFR ( Amer) >60 Est GFR (Non-Af Amer) >60 BUN/Creatinine Ratio 43.8 Glucose 145 H Calcium 8.8 Magnesium 2.5 H Total Bilirubin 0.4 AST 51 H ALT 83 H Alkaline Phosphatase 65 Total Protein 5.9 L Albumin 2.0 L Globulin 3.9 Albumin/Globulin Ratio 0.5 Specimen Source Blood A.calcoaceticus-baumannii cmplx PCR Not detected Bacteroides fragilis Not detected Meredith albicans (PCR) Not detected Meredith auris (PCR) Not detected C. glabrata (PCR) Not detected C. krusei (PCR) Not detected C. parapsilosis (PCR) Not detected C. tropicalis (PCR) Not detected C. neoform/gattii (PCR) Not detected Enterobacterales (PCR) Not detected E. cloacae complex PCR Not detected Enterococc faecalis PCR Not detected Enterococc faecium PCR Not detected E. coli (PCR) Not detected H. influenzae (PCR) Not detected Klebsiella aerogenes (PCR) Not detected Klebsiella oxytoca PCR Not detected K. pneumoniae group (PCR) Not detected List. monocytogenes PCR Not detected N. meningitidis (PCR) Not detected Proteus spp. (copies/mL) Not detected Salmonella spp. (PCR) Not detected Serratia marcescens PCR Not detected Staphylococcus sp PCR Not detected Staph aureus (PCR) Not detected mecA/C & MREJ Resist Gene Not applicable mecA/C-Methicil Resis Gene Not applicable mcr-1 Colistin Res Gene PCR Not applicable Staph epidermidis (PCR) Not detected Staph lugdunensis (TEM-PCR) Not detected S. maltophilia (PCR) Not detected Streptococcus sp PCR Not detected Strep agalactiae (PCR) Not detected Strep pneumoniae (PCR) Not detected S. pyogenes (PCR) Not detected P. aeruginosa (PCR) Not detected Renita/B-Vanco Res Genes Not applicable blaIMP Car res Gene PCR Not applicable KPC (blaKPC) Detect PCR Not applicable NDM (blaNDM) Detect PCR Not applicable OXA-48 Carbapenem Resis Gene (PCR) Not applicable blaVIM Car Res Gene PCR Not applicable CTX-M ESBL (PCR) Not applicable Preliminary micro results at discharge 07/03/24 21:59 Blood Culture Result 2 - Preliminary Blood - Right Forearm 07/03/24 14:53 Blood Culture Result 1 - Preliminary Blood - Right Forearm NO GROWTH AT 36-48 HOURS. FINAL TO FOLLOW. Discharge Plan Discharge Disposition: Home Health Service Condition: Fair Discharge Medications: New cefdinir 300 mg capsule 300 mg PO BID 10 Days Qty: 20 0RF prednisone 10 mg tablet See Rx Instructions .ROUTE .COMPLEX Qty: 39 0RF Rx Instructions: 6 PO daily x 3 days, then 4 PO daily x 3 days, then 2 PO daily x 3 days, then 1 PO daily x 3 days azithromycin [Zithromax] 250 mg tablet 250 mg PO DAILY 4 Days Qty: 4 0RF Rx Instructions: start on day 2 of therapy Continued losartan 25 mg tablet 25 mg PO DAILY Simponi ARIA 12.5 mg/mL solution 50 mg IV .every 2 months folic acid 1 mg tablet 1 mg PO DAILY methotrexate sodium 2.5 mg tablet 25 mg PO .once week Patient Comments: Patient takes on thursday omeprazole 40 mg capsule,delayed release(DR/EC) 40 mg PO BID amlodipine 5 mg tablet 5 mg PO DAILY Held methylprednisolone [Medrol] 4 mg tablet 4 mg PO PRN Hold Instructions: Hold until done with prednisone Activity: resume usual activities as tolerated Diet: advance to your usual diet Print Language: Mongolian Forms: Portal Instructions Follow Up Appointments: July 13 @ 2pm with Dr. Herrmann [phone]
[2024-07-07 11:27] VITALS: BP 138/85; PULSE 76; PULSE 91; TEMP 36.4; O2SAT 92; O2SAT 95
--- NOTE | 2024-07-07 11:37 | PT.DAILY ---
Physical Therapy Daily Note PT Daily Note/Assess Start: 07/06/24 11:50 Freq: Status: Active Protocol: Document 07/07/24 11:32 EMELY (Rec: 07/07/24 11:37 EMELY [id number]) Physical Therapy Daily Note/Assessment Time In/Time Out Time In 11:05 Time Out 11:15 Pain In Pain N/A Pain Out Pain N/A Subjective Subjective Pt sitting in BS chair upon arrival. No new complaints. Agrees to PT. Planned dc home this afternoon. Therapeutic Activity Time Therapeutic Activity 10 Minutes (minutes) Therapeutic Activity 1 Units Therapeutic Activity Treatment Chair Transfer Standby Assistance Ability Therapeutic Activity Pt completes sit>stand SBA. 10x step ups on portable 8 Comments step using RW for Bilat UE support and CGA for safety. Pt more comfortable leading with R LE for ascending steps due to drop foot on L. Pt amb 150' with RW, SBA. Returned to BS chair with call light in reach and chair alarm set. Total Physical Therapy Time Total Therapy 10 Minutes Total Physical 1 Therapy Units Summary Daily Note Summary Improved transfer ability. Steady with step ups with bilat UE support while leading with R LE. Planned dc today.
--- NOTE | 2024-07-07 12:30 | CM.NOTE ---
Faxed CRF, discharge summary and medication list to [address] and updated on pt's discharge to home.
--- NOTE | 2024-07-11 13:48 | CM.DCFOLLOWU ---
Person spoke with: Larry How are you feeling? He is doing PT right now How is your pain? No pain Did you understand your discharge instructions? Yes Do you have any questions about your discharge instructions? Yes about antibiotic Zithromax- pt thought he was not to start until 2nd day of Physical therapy- clarified and pt would need to start taking now and complete script Were you given any prescriptions at discharge? yes Were you able to get your prescriptions filled? Yes Do you understand how to take your medications as ordered? Clarified as above Do you have any questions about your follow up appointment and do you plan to keep your follow up appointment? No it is scheduled for the 4th Is there anything else that you would like to discuss? no Questions/Comments/Concerns/Other:
== END 2024-07-07 12:29 | disposition home health service (06) | DRG 194 ==
LOC: ER 21:58 → MS 07-05 07:11
PROVIDERS: Emergency Medicine; Registered Nurse; Admitting Provider Family Medicine; Emergency Provider Student in an Organized Health Care Education/Training Program; PCP Internal Medicine; Visit Provider Family Medicine
DX: J18.9 Pneumonia, unspecified organism (principal); J44.0 Chronic obstructive pulmonary disease with (acute) lower respiratory infection; J44.1 Chronic obstructive pulmonary disease with (acute) exacerbation; N17.9 Acute kidney failure, unspecified; I10 Essential (primary) hypertension; R53.1 Weakness; Z91.81 History of falling; R26.81 Unsteadiness on feet; Z86.16 Personal history of COVID-19; M05.20 Rheumatoid vasculitis with rheumatoid arthritis of unspecified site
CPT/HCPCS: 36415; 71045; 71250; 80048; 80053; 81001; 82948; 83605; 83735; 85007; 85025; 85027; 86140; 87040; 87086; 87150; 87804; 87811; 93005; 94640; 94667; 94668; 94761; 96365; 96367; 96372; 96376; 97161; 97165; 97530; 97535; 99285; G0378; J0456; J0696; J1650; J2405; J2919; J8610

== ENCOUNTER 2024-08-09 08:05 | Outpatient (OUT) | payer MEDICARE, OTHER, SELFPAY ==
--- OUTSIDE RECORDS SUMMARY | 2024-08-09 08:13 | XMS_ITS | CCD ---
Author Organization [facility] Care Team Providers Care Bindery Worker Name Role Phone PHYSICIAN, DEFAULT Unavailable Unavailable PHYSICIAN, DEFAULT Unavailable Unavailable MONTEZ, DR WHITING Attending Unavailable MONTEZ, DR WHITING Consulting Unavailable MONTEZ, DR WHITING Primary Care Unavailable MONTEZ, DR WHITING Admitting Unavailable Duarte Herrmann DO Primary Care Provider DO Duarte Herrmann Primary Care Provider MD Farhan Bertrand Attending Provider MD Vickey Moeller Attending Provider DO Duarte Herrmann Primary Care Provider MD Farhan Bertrand Attending Provider [phone] Vickey Moeller Unavailable Duarte Herrmann Unavailable DO Duarte Herrmann Primary Care Provider MD Farhan Bertrand Attending Provider [phone] MESERET Villar Attending Provider DO Duarte Herrmann Primary Care Provider MESERET Villar Attending Provider Duarte Herrmann DO Primary Care Provider CYNTHIA OLIVER Attending Unavailable CYNTHIA OLIVER Referring Unavailable DUARTE HERRMANN Primary Care Unavailable MD Clarke Bertrand Attending Provider DO Duarte Herrmann Primary Care Provider MD Clarke Bertrand Attending Provider MESERET Villar Attending Provider DO Duarte Herrmann Primary Care Provider MD Clarke Bertrand Attending Provider [phone] DO Duarte Herrmann Primary Care Provider MD Clarke Bertrand Attending Provider [phone] DO Clemente Flores Attending Provider DO Duarte Herrmann Primary Care Provider Bedocs, DO Evangelista Solano Attending Provider [phone] MD Clarke Bertrand Attending Provider [phone] MD Clarke Bertrand Attending Provider Duarte Herrmann DO Primary Care Provider [employer], Lashell Nur Attending Provider Clarke Bertrand MD Attending Provider [phone] Duarte Herrmann DO Primary Care Provider Clarke Bertrand MD Attending Provider [phone] Duarte Herrmann DO Primary Care Provider Clarke Bertrand MD Attending Provider [phone] Vickey Moeller MD Attending Provider [phone] Gurinder Bartlett DO Attending Provider Vickey Moeller Admitting Unavailable Vickey Moeller Attending Unavailable Ball, Duarte Primary Care Unavailable Gurinder Bartlett Admitting Unavailable Gurinder Bartlett Attending Unavailable Ball, Duarte Primary Care Unavailable Bertrand, Clarke Admitting Unavailable Bertrand, Clarke Attending Unavailable Bertrand, Clarke Admitting Unavailable Bertrand, Clarke Attending Unavailable Ball, Duarte Primary Care Unavailable Obermeyer Lashell L Admitting Unavailable Obermeyer, Lashell L Attending Unavailable Bertrand, Clarke Attending Unavailable Ball, Duarte Primary Care Unavailable Bertrand, Clarke Admitting Unavailable Bertrand, Clarke Attending Unavailable Bertrand, Clarke Admitting Unavailable Ball, Duarte Primary Care Unavailable Allergies Allergy Classification Reported Allergen(s) Allergy Type Date of Onset Reaction(s) Facility (1 source) patient allergy list reviewed by nurse or physicia Propensity to adverse reactions 4 Comment:Done Orbotix Other Medications Current Medications Medication Drug Class(es) Dates Sig (Normalized) Sig (Original) folic acid 1 mg oral tablet (20 sources) Start: 08-27-2017 take 1 tablet by mouth once daily Folic Acid 1 mg Tablet Active 1 MG PO Daily August 27, 2017 12:00am FOLIC ACID ORAL Take by mouth. 0 Active Comment on above: Take by mouth. Folic Acid unknown (2 sources) take 1 tablet by mouth once daily 4 ml golimumab 12.5 mg/ml injection (20 sources) Tumor Necrosis Factor Swati Start: 09-17-2021 Golimumab (Simponi Aria) 12.5 mg/mL Solution Active 175 MG IV EVERY 8 WEEKS September 17, 2021 12:00am administer over 30 mins Start: 09-17-2021 Golimumab (Sim poni Aria) 12.5 mg/mL Solution Active 175 MG IV EVERY 8 WEEKS September 17, 2021 12:00am administer over 30 mins Simponi Aria 50 MG/4ML as directed Intravenous EVERY 8 WEEKS Active golimumab (SIMPO NI ARIA INTRAVENOUS) Inject 2 mg intravenously every 8 weeks. 2 mg/kg iv every 8 weeks per protocol (no loading doses) = 180 mg (4 vials) 0 Active Comment on above: Inject 2 mg intraven ously every 8 weeks. 2 mg/kg iv every 8 weeks per protocol (no loading doses) = 180 mg (4 vials) losartan potassium 25 mg oral tablet (20 sources) Angiotensin 2 Receptor Swati Start: 05-25-2024 take 1 tablet by mouth once daily Losartan 25 mg tablet Active 25 MG PO 2 times daily May 25, 2024 12:00am TAKE 1 TABLET BY MOUTH EVERY DAY Start: 11-12-2023 End: 05-25-2024 take 1 tablet by mouth once daily Losartan 25 mg tablet Discontinued 0 .ROUTE .COMPLEX November 12, 2023 7:42am May 25, 2024 9:46am TAKE 1 TABLET BY MOUTH EVERY DAY Start: 11-12-2023 take 1 tablet by humberto th once daily Losartan Active 0 .ROUTE .COMPLEX November 12, 2023 7:42am TAKE 1 TABLET BY MOUTH EVERY DAY Start: 05-11-2023 End: 11-12-2023 take 1 tablet by mouth once daily Losartan 25 mg tablet Discontinued 25 MG PO Daily May 11, 2023 12:00am November 12, 2023 7:42am take 1 tablet by humberto th once daily Losartan Potassium 25 MG TAKE 1 TABLET BY MOUTH EVERY DAY for 90 Active methotrexate 2.5 mg oral tablet (20 sources) Folate Analog Metabolic Inhibitor Start: 08-27-2017 take 8 tablets by mouth every week Methotrexate Sodium 2.5 mg tablet Active 8 TAB PO every week August 27, 2017 12:00am methotrexate 2.5 mg tablet Take by mouth one time only. 0 Active Comment on above: Take by mouth one ti me only. omeprazole 40 mg delayed release oral capsule (20 sources) Proton Pump Inhibitor Start: 11-18-2023 End: 11-18-2023 take 1 capsule by mouth twice daily Omeprazole 40 mg capsule,delayed release(DR/EC) Active 40 MG PO Twice daily 60 November 18, 2023 1:27pm Start: 10-07-2018 End: 11-18-2023 take 1 capsule by mouth once daily Omeprazole 40 mg Capsule,Delayed Release(Dr/Ec) Discontinued 40 MG PO Daily October 07, 2018 12:00am November 18, 2023 1:25pm Comment on above: Take 40 mg by mouth once daily. Completed/Discontinued Medications Medication Drug Class(es) Dates Sig (Normalized) Sig (Original) 0.4 ml adalimumab 100 mg/ml prefilled syringe (20 sources) Tumor Necrosis Factor Swati Start: 08-27-2017 End: 09-17-2021 Adalimumab (Humira(Cf)) 40 mg/0.4 mL Syringe Kit Discontinued 0.4 ML SUBCUT As Directed August 27, 2017 12:00am September 17, 2021 11:15am Adalimumab (HUMI RA PEN) 40 mg/0.8 mL pnkt Inject subcutaneously. 0 Active Comment on above: Inject subcutaneousl y. amLODIPine 5 mg oral tablet (20 sources) Dihydropyridine Calcium Channel Swati Start: take 1 tablet by mouth once daily Amlodipine 5 mg tablet Active 0 .ROUTE .COMPLEX 90 November 05, 2023 1:55pm On Hold: Hold until seen by your Primary Care Physician TAKE 1 TABLET BY MOUTH EVERY DAY Start: 09-17-2021 End: 11-05-2023 take 1 tablet by mouth once daily Amlodipine 5 mg tablet Discontinued 5 MG PO Daily September 17, 2021 12:00am November 05, 2023 1:55pm Start: 09-17-2021 take 5 mg by mouth once daily Amlodipine Active 5 MG PO Daily September 17, 2021 12:00am Start: 08-22-2021 take 1 tablet by humberto th once daily amLODIPine (NORVASC) 5 mg tablet Take 5 mg by mouth once daily. 0 08/22/2021 Active Comment on above: Take 5 mg by mouth o nce daily. calcium carbonate 500 mg chewable tablet (8 sources) take 1 tablet by mouth every twenty-four hours Tums 500 MG 1 tablet Orally Once a day Not-Taking/PRN hydrocortisone acetate 10 mg/ml / pramoxine hydrochloride 10 mg/ml rectal foam (20 sources) Corticosteroid Start: 2017 End: 2017 Hydrocortisone-Pramoxin e (Proctofoam Hc) 1-1 % foam Discontinued INJECTABLE FOAM August 27, 2017 12:00am August 27, 2017 12:55pm methylPREDNISolone 4 mg oral tablet (9 sources) Corticosteroid Start: 2024 End: 2024 Methylprednisolone 4 mg tablets,dose pack Discontinued 4 MG PO June 06, 2024 12:00am June 13, 2024 6:23pm take 1 tablet by humberto th every twelve hours methylPREDNISolone 4 MG 1 tablet with fo od or milk Orally every 12 hrs Active oseltamivir 75 mg oral capsule (6 sources) Neuraminidase Inhibitor Start: 04-20-2024 End: 05-25-2024 take 1 capsule by mouth every twelve hours Oseltamivir (Tamiflu) 75 mg capsule Discontinued 75 MG PO Every 12 hours 10 5 April 20, 2024 12:00am May 25, 2024 9:46am Psyllium (8 sources) Metamucil PRN Not-Taking/PRN Metamucil PRN No t-Taking Metamucil PRN Ac tive vitamin b12 0.05 mg oral tablet (20 sources) Vitamin B12 Start: 09-17-2021 End: 05-25-2024 take 1 tablet by mouth once daily Cyanocobalamin (Vitamin B-12) (Vitamin B-12) 50 mcg Tablet Discontinued 50 MCG PO Daily September 17, 2021 12:00am May 25, 2024 9:45am Start: 09-17-2021 take 1 tablet by humberto th once daily Cyanocobalamin (Vitamin B-12) (Vitamin B-12) 50 mcg Tablet Active 50 MCG PO Daily September 17, 2021 12:00am take 1 tablet by humberto th once daily Cyanocobalamin (VITAMIN B-12) 1,000 mcg TbER Take 1 tablet by mouth once daily. 0 Active Vitamin B12 Acti ve Comment on above: Take 1 tablet by humberto th once daily. Problems Active Problems Problem Classification Problem Date Documented Da te Episodic/Chronic Abdominal hernia (2 sources) Inguinal hernia; Translations: [Unilateral inguinal hernia, without obstruction or gangrene, not specified as recurrent] Episodic Abdominal pain (9 sources) Abdominal pain; Translations: [Unspecified abdominal pain] Onset: 4 Episodic Acquired foot deformities (1 source) Left foot drop; Translations: [Foot drop, left foot] Episodic Acute bronchitis (6 sources) Acute bronchitis; Translations: [Acute bronchitis, unspecified] Onset: 5 04-20-2024 Episodic Calculus of urinary tract (3 sources) H/O: urinary stone; Translations: [Personal history of urinary calculi] Onset: 0 Episodic Chronic obstructive pulmonary disease and bronchiectasis (4 sources) Chronic obstructive pulmonary disease with acute lower respiratory infection; Translations: [Chronic obstructive pulmonary disease with (acute) lower respiratory infection] 07-11-2024 Chronic Coagulation and hemorrhagic disorders (20 sources) Other primary thrombocytopenia; Translations: [Thrombocytopenic disorder] Onset: 0 Chronic Disorders of lipid metabolism (20 sources) Pure hypercholesterolemia, unspecified; Translations: [Hypercholesterolemia] Onset: 1 Chronic Esophageal disorders (20 sources) Gastroesophageal reflux disease; Translations: [Gastro-esophageal reflux disease without esophagitis] Onset: 8 Chronic Essential hypertension (20 sources) Essential (primary) hypertension; Translations: [Essential hypertension] Onset: 1 Chronic Comment on above: Echo: LVEF 60%, LEN, normal RV size/function - 06/2024 Gastroduodenal ulcer (except hemorrhage) (2 sources) H/O: peptic ulcer; Translations: [Personal history of peptic ulcer disease] Episodic Hyperplasia of prostate (3 sources) Benign prostatic hypertrophy without outflow obstruction; Translations: [Hypertrophy (benign) of prostate without urinary obstruction and other lower urinary tract symptoms [LUTS]] Onset: 7 Chronic Immunizations and screening for infectious disease (1 source) Vaccination given; Translations: [Encounter for immunization] Episodic Influenza (5 sources) Influenza due to other identified influenza virus with other respiratory manifestations; Translations: [Influenza due to identified 2009 H1N1 influenza virus with other respiratory manifestations] 04-20-2024 Episodic Nausea and vomiting (8 sources) Vomiting; Translations: [Vomiting, unspecified] Episodic Osteoarthritis (20 sources) Osteoarthritis of right knee joint; Translations: [Unilateral primary osteoarthritis, right knee] 05-21-2023 Chronic Other aftercare (10 sources) Immunosuppression; 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] 04-20-2024 Episodic Other circulatory disease (1 source) History of cardiovascular surgery; Translations: [Presence of other cardiac implants and grafts] Chronic Other disorders of stomach and duodenum (7 sources) Indigestion; Translations: [Functional dyspepsia] Episodic Other disorders of stomach and duodenum (1 source) Functional dyspepsia; Translations: [Indigestion] Episodic Other ear and sense organ disorders (1 source) Sensorineural hearing loss, bilateral; Translations: [Sensorineural hearing loss, bilateral] Chronic Other gastrointestinal disorders (20 sources) Altered bowel function; Translations: [Other specified symptoms and signs involving the digestive system and abdomen] 10-08-2018 Episodic Other gastrointestinal disorders (7 sources) Constipation; Translations: [Constipation, unspecified] Episodic Other gastrointestinal disorders (1 source) Constipation, unspecified; Translations: [Constipation] Episodic Other injuries and conditions due to external causes (1 source) Injury of ulnar nerve; Translations: [Injury to ulnar nerve] Episodic Other injuries and conditions due to external causes (1 source) History of fall; Translations: [History of falling] Episodic Other lower respiratory disease (1 source) Interstitial lung disease; Translations: [Interstitial pulmonary disease, unspecified] 07-06-2024 Chronic Comment on above: CT: lymphadenopathy and B/L parenchymal changes - 06/2024Recommend recheck Other lower respiratory disease (1 source) Hypoxemia; Translations: [Hypoxemia] 07-11-2024 Episodic Other lower respiratory disease (1 source) Hypoxemia; Translations: [Hypoxemia] 07-13-2024 Episodic Other non-traumatic joint disorders (15 sources) Pain in right shoulder; Translations: [Right shoulder pain] 05-18-2023 Episodic Other screening for suspected conditions (not mental disorders or infectious disease) (14 sources) Encounter for screening for malignant neoplasm of prostate; Translations: [Patient encounter status] Onset: 1 11-09-2023 Episodic Pneumonia (except that caused by tuberculosis or sexually transmitted disease) (2 sources) Pneumonia; Translations: [Pneumonia, unspecified organism] 07-11-2024 Episodic Residual codes; unclassified (4 sources) Bilateral lower limb edema; Translations: [Localized edema] 05-23-2024 Episodic Residual codes; unclassified (5 sources) Localized edema; Translations: [Edema] 05-23-2024 Episodic Rheumatoid arthritis and related disease (20 sources) Rheumatoid arthritis of wrist; 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] Onset: 0 Chronic Spondylosis; intervertebral disc disorders; other back problems (20 sources) Lumbar spondylosis; Translations: [Spondylosis without myelopathy or radiculopathy, lumbar region] Onset: 8 Chronic Past or Other Problems Problem Classification Problem Date Documented Da te Episodic/Chronic Conditions associated with dizziness or vertigo (1 source) Dizziness and giddiness; Translations: [Dizziness and giddiness] Onset: 02-11-2018 Episodic Syncope (1 source) Syncope and collapse; Translations: [Syncope and collapse] Onset: 01-18-2018 Episodic Results Test Name Value Interpretation Reference Range Facility Basophils Auto (Bld) [#/Vol] on 07-07-2024 Basophils (Bld) [#/Vol] Automated basoph il count 0.0-0.1 [facility] Basophils/100 WBC Auto (Bld) on 07-07-2024 Basophils/100 WBC (Bld) Automated basophil % 0. 2-2.0 [facility] Eosinophils/100 WBC Auto (Bl d)on 07-07-2024 Eosinophils/100 WBC (Bld) Automated eosinophil % Low 0.9-7.0 [facility] Erythrocyte distribution wid th Auto (RBC) [Ratio]on 07-07-2024 Erythrocyte distribution width (RBC) [Ratio] Erythrocyte distribution width [Ratio] by Automated count High 11.0-15.0 [facility] Estimated glomerular filtrat ion rate (GFR) non- Americanon 07-07-2024 GFR/1.73 sq M.predicted among non-blacks MDRD (S/P/Bld) [Vol rate/Area] Estimated glomerular filtration rate (GFR) non- >=60 mL/min/1.73m 2 [facility] Globulin Calc (S) [Mass/Vol] on 07-07-2024 Globulin (S) [Mass/Vol] Serum globulin measurement by calculation (mass/volume) [facility] Hematocrit Auto (Bld) [Volum e fraction]on 07-07-2024 Hematocrit (Bld) [Volume fraction] Hematocrit [Volume Fraction] of Blood by Automated count Low 42.0-54.0 [facility] Hemoglobin [Mass/volume] in Bloodon 07-07-2024 Hemoglobin (Bld) [Mass/Vol] Hemoglobin [Mass/volume] in Blood Low 14.0-18.0 [facility] Laboratory - Chemistry and C hemistry - challengeon 07-07-2024 Albumin [Mass/Vol] 2.0 g/dL Low 3.4-5.0 [facility] ALP [Catalytic activity/Vol] 65 U/L 46-116 [facility] ALT [Catalytic activity/Vol] 83 U/L High 16-63 [facility] AST [Catalytic activity/Vol] 51 U/L High 15-37 [facility] Bilirubin [Mass/Vol] 0.4 mg/dL 0.2-1.0 [facility] Calcium [Mass/Vol] 8.8 mg/dL 8.5-10.1 [facility] Chloride [Moles/Vol] 105 mmol/L 98-107 [facility] CO2 [Moles/Vol] 23.3 mmol/L 21.0-32.0 [facility] Creatinine [Mass/Vol] 0.80 mg/dL 0.70-1.30 [facility] GFR/1.73 sq M.predicted MDRD (S/P/Bld) [Vol rate/Area] mL/min/{1.73_m2} >=60 mL/min/1.73m 2 [facility] Glucose [Mass/Vol] 145 mg/dL High 74-106 [facility] Magnesium [Mass/Vol] 2.5 mg/dL High 1.8-2.4 [facility] Potassium [Moles/Vol] 3.4 mmol/L Low 3.5-5.1 [facility] Protein [Mass/Vol] 5.9 g/dL Low 6.4-8.2 [facility] Sodium [Moles/Vol] 142 mmol/L 136-145 [facility] Urea nitrogen [Mass/Vol] 35.0 mg/dL High 7.0-18.0 [facility] Urea nitrogen/Creatinine [Mass ratio] 43.8 mg/mg [facility] Laboratory - Hematology and Cell countson 07-07-2024 Immature granulocytes/100 WBC (Bld) 0.8 % High 0.0-0.5 [facility] Leukocytes [#/volume] correc constance for nucleated erythrocytes in Blood by Automated counon 07-07-2024 WBC corrected for nucl RBC Auto (Bld) [#/Vol] Leukocytes [#/volume] corrected for nucleated erythrocytes in Blood by Automated coun 4.0-11.0 [facility] Lymphocytes Auto (Bld) [#/Vo l]on 07-07-2024 Lymphocytes (Bld) [#/Vol] Lymphocytes [#/volume] in Blood by Automated count Low 1.2-3.8 [facility] Lymphocytes/100 WBC Auto (Bl d)on 07-07-2024 Lymphocytes/100 WBC (Bld) Lymphocytes/100 leukocytes in Blood by Automated count Low 20.5-60.0 [facility] MCH Auto (RBC) [Entitic mass ]on 07-07-2024 MCH (RBC) [Entitic mass] MCH [Entitic ma ss] by Automated count 25.9-34.0 [facility] MCHC Auto (RBC) [Mass/Vol]on 07-07-2024 MCHC (RBC) [Mass/Vol] MCHC [Mass/volume] by Automated count 29.9-35.2 [facility] MCV Auto (RBC) [Entitic vol] on 07-07-2024 MCV (RBC) [Entitic vol] MCV [Entitic vol ume] by Automated count 80.0-94.0 [facility] Monocytes Auto (Bld) [#/Vol] on 07-07-2024 Monocytes (Bld) [#/Vol] Automated blood monocyte count Low 0.3-0.8 [facility] Monocytes/100 WBC Auto (Bld) on 07-07-2024 Monocytes/100 WBC (Bld) Automated monocyte % 1. 7-12.0 [facility] Neutrophils Auto (Bld) [#/Vo l]on 07-07-2024 Neutrophils (Bld) [#/Vol] Neutrophils [#/volume] in Blood by Automated count 1.4-6.5 [facility] Neutrophils/100 WBC Auto (Bl d)on 07-07-2024 Neutrophils/100 WBC (Bld) Automated neutrophil % High 43.0-75.0 [facility] No Panel Informationon 07-07 Eosinophils # (Auto) 0.0 10 3/uL 0.0-0.7 [facility] Immature Granulocyte # (Auto) 0.04 10 3/uL High 0.00-0.03 [facility] Platelet mean volume Auto (B ld) [Entitic vol]on 07-07-2024 Platelet mean volume (Bld) [Entitic vol] Platelet mean volume [Entitic volume] in Blood by Automated count 9.5-13.5 [facility] Platelets Auto (Bld) [#/Vol] on 07-07-2024 Platelets (Bld) [#/Vol] Platelets [#/vol ume] in Blood by Automated count 150-450 [facility] RBC Auto (Bld) [#/Vol]on RBC (Bld) [#/Vol] Erythrocytes [#/volume] in Blood by Automated count Low 4.70-6.10 [facility] Serum or plasma albumin/glob ulin mass ratioon 07-07-2024 Albumin/Globulin [Mass ratio] Serum or plasma albumin/globulin mass ratio [facility] Serum or plasma anion gap de terminationon 07-07-2024 Anion gap [Moles/Vol] Serum or plasma an ion gap determination [facility] Basophils Auto (Bld) [#/Vol] on 07-06-2024 Basophils (Bld) [#/Vol] Automated basoph il count 0.0-0.1 [facility] Basophils/100 WBC Auto (Bld) on 07-06-2024 Basophils/100 WBC (Bld) Automated basophil % Low 0. 2-2.0 [facility] Eosinophils/100 WBC Auto (Bl d)on 07-06-2024 Eosinophils/100 WBC (Bld) Automated eosinophil % Low 0.9-7.0 [facility] Erythrocyte distribution wid th Auto (RBC) [Ratio]on 07-06-2024 Erythrocyte distribution width (RBC) [Ratio] Erythrocyte distribution width [Ratio] by Automated count High 11.0-15.0 [facility] Estimated glomerular filtrat ion rate (GFR) non- Americanon 07-06-2024 GFR/1.73 sq M.predicted among non-blacks MDRD (S/P/Bld) [Vol rate/Area] Estimated glomerular filtration rate (GFR) non- >=60 mL/min/1.73m 2 [facility] Globulin Calc (S) [Mass/Vol] on 07-06-2024 Globulin (S) [Mass/Vol] Serum globulin measurement by calculation (mass/volume) [facility] Hematocrit Auto (Bld) [Volum e fraction]on 07-06-2024 Hematocrit (Bld) [Volume fraction] Hematocrit [Volume Fraction] of Blood by Automated count Low 42.0-54.0 [facility] Hemoglobin [Mass/volume] in Bloodon 07-06-2024 Hemoglobin (Bld) [Mass/Vol] Hemoglobin [Mass/volume] in Blood Low 14.0-18.0 [facility] Laboratory - Chemistry and C hemistry - challengeon 07-06-2024 Albumin [Mass/Vol] 2.1 g/dL Low 3.4-5.0 [facility] ALP [Catalytic activity/Vol] 71 U/L 46-116 [facility] ALT [Catalytic activity/Vol] 69 U/L High 16-63 [facility] AST [Catalytic activity/Vol] 64 U/L High 15-37 [facility] Bilirubin [Mass/Vol] 0.5 mg/dL 0.2-1.0 [facility] Calcium [Mass/Vol] 9.3 mg/dL 8.5-10.1 [facility] Chloride [Moles/Vol] 103 mmol/L 98-107 [facility] CO2 [Moles/Vol] 23.3 mmol/L 21.0-32.0 [facility] Creatinine [Mass/Vol] 0.85 mg/dL 0.70-1.30 [facility] GFR/1.73 sq M.predicted MDRD (S/P/Bld) [Vol rate/Area] mL/min/{1.73_m2} >=60 mL/min/1.73m 2 [facility] Glucose [Mass/Vol] 145 mg/dL High 74-106 [facility] Magnesium [Mass/Vol] 2.1 mg/dL 1.8-2.4 [facility] Potassium [Moles/Vol] 3.5 mmol/L 3.5-5.1 [facility] Protein [Mass/Vol] 6.4 g/dL 6.4-8.2 [facility] Sodium [Moles/Vol] 138 mmol/L 136-145 [facility] Urea nitrogen [Mass/Vol] 44.0 mg/dL High 7.0-18.0 [facility] Urea nitrogen/Creatinine [Mass ratio] 51.8 mg/mg [facility] Laboratory - Hematology and Cell countson 07-06-2024 Immature granulocytes/100 WBC (Bld) 0.4 % 0.0-0.5 [facility] Leukocytes [#/volume] correc constance for nucleated erythrocytes in Blood by Automated counon 07-06-2024 WBC corrected for nucl RBC Auto (Bld) [#/Vol] Leukocytes [#/volume] corrected for nucleated erythrocytes in Blood by Automated coun 4.0-11.0 [facility] Lymphocytes Auto (Bld) [#/Vo l]on 07-06-2024 Lymphocytes (Bld) [#/Vol] Lymphocytes [#/volume] in Blood by Automated count Low 1.2-3.8 [facility] Lymphocytes/100 WBC Auto (Bl d)on 07-06-2024 Lymphocytes/100 WBC (Bld) Lymphocytes/100 leukocytes in Blood by Automated count Low 20.5-60.0 [facility] MCH Auto (RBC) [Entitic mass ]on 07-06-2024 MCH (RBC) [Entitic mass] MCH [Entitic ma ss] by Automated count 25.9-34.0 [facility] MCHC Auto (RBC) [Mass/Vol]on 07-06-2024 MCHC (RBC) [Mass/Vol] MCHC [Mass/volume] by Automated count 29.9-35.2 [facility] MCV Auto (RBC) [Entitic vol] on 07-06-2024 MCV (RBC) [Entitic vol] MCV [Entitic vol ume] by Automated count 80.0-94.0 [facility] Monocytes Auto (Bld) [#/Vol] on 07-06-2024 Monocytes (Bld) [#/Vol] Automated blood monocyte count 0.3-0.8 [facility] Monocytes/100 WBC Auto (Bld) on 07-06-2024 Monocytes/100 WBC (Bld) Automated monocyte % 1. 7-12.0 [facility] Neutrophils Auto (Bld) [#/Vo l]on 07-06-2024 Neutrophils (Bld) [#/Vol] Neutrophils [#/volume] in Blood by Automated count High 1.4-6.5 [facility] Neutrophils/100 WBC Auto (Bl d)on 07-06-2024 Neutrophils/100 WBC (Bld) Automated neutrophil % High 43.0-75.0 [facility] No Panel Informationon 07-06 Eosinophils # (Auto) 0.0 10 3/uL 0.0-0.7 [facility] Immature Granulocyte # (Auto) 0.03 10 3/uL 0.00-0.03 [facility] Platelet mean volume Auto (B ld) [Entitic vol]on 07-06-2024 Platelet mean volume (Bld) [Entitic vol] Platelet mean volume [Entitic volume] in Blood by Automated count 9.5-13.5 [facility] Platelets Auto (Bld) [#/Vol] on 07-06-2024 Platelets (Bld) [#/Vol] Platelets [#/vol ume] in Blood by Automated count 150-450 [facility] RBC Auto (Bld) [#/Vol]on RBC (Bld) [#/Vol] Erythrocytes [#/volume] in Blood by Automated count Low 4.70-6.10 [facility] Serum or plasma albumin/glob ulin mass ratioon 07-06-2024 Albumin/Globulin [Mass ratio] Serum or plasma albumin/globulin mass ratio [facility] Serum or plasma anion gap de terminationon 07-06-2024 Anion gap [Moles/Vol] Serum or plasma an ion gap determination [facility] Basophils/100 WBC Manual cnt (Bld)on 07-05-2024 Basophils/100 WBC (Bld) Basophils/100 leukocytes in Blood by Manual count Low 0.2-2.0 [facility] Eosinophils/100 WBC Manual c nt (Bld)on 07-05-2024 Eosinophils/100 WBC (Bld) Eosinophils/100 leukocytes in Blood by Manual count Low 0.9-7.0 [facility] Erythrocyte distribution wid th Auto (RBC) [Ratio]on 07-05-2024 Erythrocyte distribution width (RBC) [Ratio] Erythrocyte distribution width [Ratio] by Automated count High 11.0-15.0 [facility] Estimated glomerular filtrat ion rate (GFR) non- Americanon 07-05-2024 GFR/1.73 sq M.predicted among non-blacks MDRD (S/P/Bld) [Vol rate/Area] Estimated glomerular filtration rate (GFR) non- Low >=60 mL/min/1.73m 2 [facility] Globulin Calc (S) [Mass/Vol] on 07-05-2024 Globulin (S) [Mass/Vol] Serum globulin measurement by calculation (mass/volume) [facility] Hematocrit Auto (Bld) [Volum e fraction]on 07-05-2024 Hematocrit (Bld) [Volume fraction] Hematocrit [Volume Fraction] of Blood by Automated count Low 42.0-54.0 [facility] Hemoglobin [Mass/volume] in Bloodon 07-05-2024 Hemoglobin (Bld) [Mass/Vol] Hemoglobin [Mass/volume] in Blood Low 14.0-18.0 [facility] Laboratory - Chemistry and C hemistry - challengeon 07-05-2024 Albumin [Mass/Vol] 2.2 g/dL Low 3.4-5.0 [facility] ALP [Catalytic activity/Vol] 75 U/L 46-116 [facility] ALT [Catalytic activity/Vol] 72 U/L High 16-63 [facility] AST [Catalytic activity/Vol] 103 U/L High 15-37 [facility] Bilirubin [Mass/Vol] 0.5 mg/dL 0.2-1.0 [facility] Calcium [Mass/Vol] 9.1 mg/dL 8.5-10.1 [facility] Chloride [Moles/Vol] 102 mmol/L 98-107 [facility] CO2 [Moles/Vol] 22.8 mmol/L 21.0-32.0 [facility] Creatinine [Mass/Vol] 1.26 mg/dL 0.70-1.30 [facility] GFR/1.73 sq M.predicted MDRD (S/P/Bld) [Vol rate/Area] mL/min/{1.73_m2} >=60 mL/min/1.73m 2 [facility] Glucose [Mass/Vol] 139 mg/dL High 74-106 [facility] Magnesium [Mass/Vol] 1.9 mg/dL 1.8-2.4 [facility] Potassium [Moles/Vol] 3.7 mmol/L 3.5-5.1 [facility] Protein [Mass/Vol] 6.9 g/dL 6.4-8.2 [facility] Sodium [Moles/Vol] 140 mmol/L 136-145 [facility] Urea nitrogen [Mass/Vol] 46.0 mg/dL High 7.0-18.0 [facility] Urea nitrogen/Creatinine [Mass ratio] 36.5 mg/mg [facility] Laboratory - Hematology and Cell countson 07-05-2024 Lymphocytes/100 WBC (Bld) 8.0 % Low 20.5-60.0 [facility] Monocytes/100 WBC (Bld) 3.0 % 1.7-12.0 [facility] Leukocytes [#/volume] correc constance for nucleated erythrocytes in Blood by Automated counon 05-27-2025 WBC corrected for nucl RBC Auto (Bld) [#/Vol] Leukocytes [#/volume] corrected for nucleated erythrocytes in Blood by Automated coun 4.0-11.0 [facility] MCH Auto (RBC) [Entitic mass ]on 07-05-2024 MCH (RBC) [Entitic mass] MCH [Entitic ma ss] by Automated count 25.9-34.0 [facility] MCHC Auto (RBC) [Mass/Vol]on 07-05-2024 MCHC (RBC) [Mass/Vol] MCHC [Mass/volume] by Automated count 29.9-35.2 [facility] MCV Auto (RBC) [Entitic vol] on 07-05-2024 MCV (RBC) [Entitic vol] MCV [Entitic vol ume] by Automated count 80.0-94.0 [facility] No Panel Informationon 07-05 Absolute Basophils (Manual) 0.00 10 3/uL 0.00-0.10 [facility] Eosinophils # (Manual) 0.00 10 3/uL 0.00-0.70 [facility] Lymphocytes # (Manual) 0.60 10 3/uL Low 1.20-3.80 [facility] Monocytes # (Manual) 0.22 10 3/uL Low 0.30-0.80 [facility] Segmented Neutrophils # (Manual) 6.67 10 3/uL High 1.4-6.5 [facility] Platelet mean volume Auto (B ld) [Entitic vol]on 07-05-2024 Platelet mean volume (Bld) [Entitic vol] Platelet mean volume [Entitic volume] in Blood by Automated count 9.5-13.5 [facility] Platelets Auto (Bld) [#/Vol] on 07-05-2024 Platelets (Bld) [#/Vol] Platelets [#/vol ume] in Blood by Automated count 150-450 [facility] RBC Auto (Bld) [#/Vol]on RBC (Bld) [#/Vol] Erythrocytes [#/volume] in Blood by Automated count Low 4.70-6.10 [facility] Segmented neutrophils/100 WB C Manual cnt (Bld)on 07-05-2024 Segmented neutrophils/100 WBC (Bld) Manual blood segmented neutrophils/100 leukocytes High 43.0-75.0 [facility] Serum or plasma albumin/glob ulin mass ratioon 07-05-2024 Albumin/Globulin [Mass ratio] Serum or plasma albumin/globulin mass ratio [facility] Serum or plasma anion gap de terminationon 07-05-2024 Anion gap [Moles/Vol] Serum or plasma an ion gap determination [facility] Basophils/100 WBC Manual cnt (Bld)on 07-04-2024 Basophils/100 WBC (Bld) Basophils/100 leukocytes in Blood by Manual count Low 0.2-2.0 [facility] Eosinophils/100 WBC Manual c nt (Bld)on 07-04-2024 Eosinophils/100 WBC (Bld) Eosinophils/100 leukocytes in Blood by Manual count Low 0.9-7.0 [facility] Erythrocyte distribution wid th Auto (RBC) [Ratio]on 07-04-2024 Erythrocyte distribution width (RBC) [Ratio] Erythrocyte distribution width [Ratio] by Automated count High 11.0-15.0 [facility] Estimated glomerular filtrat ion rate (GFR) non- Americanon 07-04-2024 GFR/1.73 sq M.predicted among non-blacks MDRD (S/P/Bld) [Vol rate/Area] Estimated glomerular filtration rate (GFR) non- >=60 mL/min/1.73m 2 [facility] Globulin Calc (S) [Mass/Vol] on 07-04-2024 Globulin (S) [Mass/Vol] Serum globulin measurement by calculation (mass/volume) [facility] Hematocrit Auto (Bld) [Volum e fraction]on 07-04-2024 Hematocrit (Bld) [Volume fraction] Hematocrit [Volume Fraction] of Blood by Automated count Low 42.0-54.0 [facility] Hemoglobin [Mass/volume] in Bloodon 07-04-2024 Hemoglobin (Bld) [Mass/Vol] Hemoglobin [Mass/volume] in Blood Low 14.0-18.0 [facility] Laboratory - Chemistry and C hemistry - challengeon 07-04-2024 Albumin [Mass/Vol] 1.8 g/dL Low 3.4-5.0 [facility] ALP [Catalytic activity/Vol] 64 U/L 46-116 [facility] ALT [Catalytic activity/Vol] 52 U/L 16-63 [facility] AST [Catalytic activity/Vol] 127 U/L High 15-37 [facility] Bilirubin [Mass/Vol] 0.7 mg/dL 0.2-1.0 [facility] Calcium [Mass/Vol] 8.4 mg/dL Low 8.5-10.1 [facility] Chloride [Moles/Vol] 105 mmol/L 98-107 [facility] CO2 [Moles/Vol] 24.4 mmol/L 21.0-32.0 [facility] Creatinine [Mass/Vol] 1.13 mg/dL 0.70-1.30 [facility] GFR/1.73 sq M.predicted MDRD (S/P/Bld) [Vol rate/Area] mL/min/{1.73_m2} >=60 mL/min/1.73m 2 [facility] Glucose [Mass/Vol] 82 mg/dL 74-106 [facility] Magnesium [Mass/Vol] 1.7 mg/dL Low 1.8-2.4 [facility] Potassium [Moles/Vol] 4.0 mmol/L 3.5-5.1 [facility] Protein [Mass/Vol] 5.7 g/dL Low 6.4-8.2 [facility] Sodium [Moles/Vol] 140 mmol/L 136-145 [facility] Urea nitrogen [Mass/Vol] 41.0 mg/dL High 7.0-18.0 [facility] Urea nitrogen/Creatinine [Mass ratio] 36.3 mg/mg [facility] Lactate [Moles/Vol] 1.4 mmol/L 0.4-2.0 [facility] Laboratory - Hematology and Cell countson 07-04-2024 Band form neutrophils/100 WBC (Bld) 25.0 % High 0-5 [facility] Lymphocytes/100 WBC (Bld) 19.0 % Low 20.5-60.0 [facility] Monocytes/100 WBC (Bld) 12.0 % 1.7-12.0 [facility] Leukocytes [#/volume] correc constance for nucleated erythrocytes in Blood by Automated counon 07-04-2024 WBC corrected for nucl RBC Auto (Bld) [#/Vol] Leukocytes [#/volume] corrected for nucleated erythrocytes in Blood by Automated coun 4.0-11.0 [facility] MCH Auto (RBC) [Entitic mass ]on 07-04-2024 MCH (RBC) [Entitic mass] MCH [Entitic ma ss] by Automated count 25.9-34.0 [facility] MCHC Auto (RBC) [Mass/Vol]on 07-04-2024 MCHC (RBC) [Mass/Vol] MCHC [Mass/volume] by Automated count 29.9-35.2 [facility] MCV Auto (RBC) [Entitic vol] on 07-04-2024 MCV (RBC) [Entitic vol] MCV [Entitic vol ume] by Automated count 80.0-94.0 [facility] No Panel Informationon 07-04 Absolute Basophils (Manual) 0.00 10 3/uL 0.00-0.10 [facility] Band Neutrophils # (Manual) 2.6 10 3/uL High 0.0-0.3 [facility] Eosinophils # (Manual) 0.00 10 3/uL 0.00-0.70 [facility] Lymphocytes # (Manual) 1.95 10 3/uL 1.20-3.80 [facility] Monocytes # (Manual) 1.23 10 3/uL High 0.30-0.80 [facility] Segmented Neutrophils # (Manual) 4.53 10 3/uL 1.4-6.5 [facility] C-Reactive Protein, Quantitative 29.92 mg/dL High <=0.50 [facility] Platelet mean volume Auto (B ld) [Entitic vol]on 07-04-2024 Platelet mean volume (Bld) [Entitic vol] Platelet mean volume [Entitic volume] in Blood by Automated count 9.5-13.5 [facility] Platelets Auto (Bld) [#/Vol] on 07-04-2024 Platelets (Bld) [#/Vol] Platelets [#/vol ume] in Blood by Automated count 150-450 [facility] RBC Auto (Bld) [#/Vol]on RBC (Bld) [#/Vol] Erythrocytes [#/volume] in Blood by Automated count Low 4.70-6.10 [facility] Segmented neutrophils/100 WB C Manual cnt (Bld)on 07-04-2024 Segmented neutrophils/100 WBC (Bld) Manual blood segmented neutrophils/100 leukocytes 43.0-75.0 [facility] Serum or plasma albumin/glob ulin mass ratioon 07-04-2024 Albumin/Globulin [Mass ratio] Serum or plasma albumin/globulin mass ratio [facility] Serum or plasma anion gap de terminationon 07-04-2024 Anion gap [Moles/Vol] Serum or plasma an ion gap determination [facility] Basophils Auto (Bld) [#/Vol] on 07-03-2024 Basophils (Bld) [#/Vol] Automated basoph il count 0.0-0.1 [facility] Basophils/100 WBC Auto (Bld) on 07-03-2024 Basophils/100 WBC (Bld) Automated basophil % 0. 2-2.0 [facility] Eosinophils/100 WBC Auto (Bl d)on 07-03-2024 Eosinophils/100 WBC (Bld) Automated eosinophil % Low 0.9-7.0 [facility] Erythrocyte distribution wid th Auto (RBC) [Ratio]on 07-03-2024 Erythrocyte distribution width (RBC) [Ratio] Erythrocyte distribution width [Ratio] by Automated count High 11.0-15.0 [facility] Estimated glomerular filtrat ion rate (GFR) non- Americanon 07-03-2024 GFR/1.73 sq M.predicted among non-blacks MDRD (S/P/Bld) [Vol rate/Area] Estimated glomerular filtration rate (GFR) non- Low >=60 mL/min/1.73m 2 [facility] Hematocrit Auto (Bld) [Volum e fraction]on 07-03-2024 Hematocrit (Bld) [Volume fraction] Hematocrit [Volume Fraction] of Blood by Automated count Low 42.0-54.0 [facility] Hemoglobin [Mass/volume] in Bloodon 07-03-2024 Hemoglobin (Bld) [Mass/Vol] Hemoglobin [Mass/volume] in Blood Low 14.0-18.0 [facility] Laboratory - Chemistry and C hemistry - challengeon 07-03-2024 Lactate [Moles/Vol] 1.6 mmol/L 0.4-2.0 [facility] Calcium [Mass/Vol] 8.7 mg/dL 8.5-10.1 [facility] Chloride [Moles/Vol] 103 mmol/L 98-107 [facility] CO2 [Moles/Vol] 24.2 mmol/L 21.0-32.0 [facility] Creatinine [Mass/Vol] 1.32 mg/dL High 0.70-1.30 [facility] GFR/1.73 sq M.predicted MDRD (S/P/Bld) [Vol rate/Area] mL/min/{1.73_m2} >=60 mL/min/1.73m 2 [facility] Glucose [Mass/Vol] 105 mg/dL 74-106 [facility] Potassium [Moles/Vol] 4.1 mmol/L 3.5-5.1 [facility] Sodium [Moles/Vol] 138 mmol/L 136-145 [facility] Urea nitrogen [Mass/Vol] 37.0 mg/dL High 7.0-18.0 [facility] Urea nitrogen/Creatinine [Mass ratio] 28.0 mg/mg [facility] Laboratory - Hematology and Cell countson 07-03-2024 Immature granulocytes/100 WBC (Bld) 1.0 % High 0.0-0.5 [facility] Laboratory - Microbiology an d Antimicrobial susceptibilityon 07-03-2024 SARS-CoV-2 (COVID-19) RNA ELENA+probe Ql (Unsp spec) Negative NEGATIVE [facility] Comment on above: This test has not be en FDA cleared or approved, but has beenauthorized by the FDA under an Emergency Use Authorization(EUA) for use by authorized laboratories certified underIA that meet the requirements to perform moderate or highcomplexity testing. This test has been authorized only forthe detection of proteins from SARS-CoV-2, not for any otherviruses or pathogens. The emergency use of this test isauthorized for the duration of the declaration thatcircumstances exist justifying the authorization ofemergency use of in vitro diagnostic tests for detectionand/or diagnosis of Covid-19 under section 564(b)(1) of theAct, U.S.C. 360bbb-3(b)(1), unless the declaration isterminated or authorization is revoked sooner. Leukocytes [#/volume] correc constance for nucleated erythrocytes in Blood by Automated counon 07-03-2024 WBC corrected for nucl RBC Auto (Bld) [#/Vol] Leukocytes [#/volume] corrected for nucleated erythrocytes in Blood by Automated coun 4.0-11.0 [facility] Lymphocytes Auto (Bld) [#/Vo l]on 07-03-2024 Lymphocytes (Bld) [#/Vol] Lymphocytes [#/volume] in Blood by Automated count Low 1.2-3.8 [facility] Lymphocytes/100 WBC Auto (Bl d)on 07-03-2024 Lymphocytes/100 WBC (Bld) Lymphocytes/100 leukocytes in Blood by Automated count Low 20.5-60.0 [facility] MCH Auto (RBC) [Entitic mass ]on 07-03-2024 MCH (RBC) [Entitic mass] MCH [Entitic ma ss] by Automated count 25.9-34.0 [facility] MCHC Auto (RBC) [Mass/Vol]on 07-03-2024 MCHC (RBC) [Mass/Vol] MCHC [Mass/volume] by Automated count 29.9-35.2 [facility] MCV Auto (RBC) [Entitic vol] on 07-03-2024 MCV (RBC) [Entitic vol] MCV [Entitic vol ume] by Automated count 80.0-94.0 [facility] Monocytes Auto (Bld) [#/Vol] on 07-03-2024 Monocytes (Bld) [#/Vol] Automated blood monocyte count 0.3-0.8 [facility] Monocytes/100 WBC Auto (Bld) on 07-03-2024 Monocytes/100 WBC (Bld) Automated monocyte % 1. 7-12.0 [facility] Neutrophils Auto (Bld) [#/Vo l]on 07-03-2024 Neutrophils (Bld) [#/Vol] Neutrophils [#/volume] in Blood by Automated count High 1.4-6.5 [facility] Neutrophils/100 WBC Auto (Bl d)on 07-03-2024 Neutrophils/100 WBC (Bld) Automated neutrophil % High 43.0-75.0 [facility] No Panel InformationOrdered By: Rex Gates on 07-03-2024 Anaerobe Identification Only [facility] No Panel Informationon 07-03 Eosinophils # (Auto) 0.0 10 3/uL 0.0-0.7 [facility] Immature Granulocyte # (Auto) 0.08 10 3/uL High 0.00-0.03 [facility] Bedside Influenza Type A Antigen Negative [facility] Comment on above: Negative for Flu A p rotein antigen. Infection due to Flu Acannot be ruled out. Flu A antigen in the sample may bebelow the detection limit of the test. Bedside Influenza Type B Antigen Negative [facility] Comment on above: Negative for Flu B p rotein antigen. Infection due to Flu Bcannot be ruled out. Flu B antigen in the sample may bebelow the detection limit of the test. Platelet mean volume Auto (B ld) [Entitic vol]on 07-03-2024 Platelet mean volume (Bld) [Entitic vol] Platelet mean volume [Entitic volume] in Blood by Automated count 9.5-13.5 [facility] Platelets Auto (Bld) [#/Vol] on 07-03-2024 Platelets (Bld) [#/Vol] Platelets [#/vol ume] in Blood by Automated count 150-450 [facility] RBC Auto (Bld) [#/Vol]on RBC (Bld) [#/Vol] Erythrocytes [#/volume] in Blood by Automated count Low 4.70-6.10 [facility] Serum or plasma anion gap de terminationon 07-03-2024 Anion gap [Moles/Vol] Serum or plasma an ion gap determination [facility] Urine Cultureon 07-03-2024 Bacteria identified Cx Nom (U) 20,000 colonies/ml mixed bacterial skin contaminants 2 Days PERFORMED BY: [place] [address] PATHOLOGIST FUND RAISER JOSÉ LUIS SADLER M.D. Normal [facility] Comment on above: Performed By: #### E SR, CMP, B12, CBC, MG #### [facility] [address] [place], [place] [id number] [facility] Urine cultureOrdered By: Helio Bartlett on 07-03-2024 Bacteria identified Cx Nom (U) Urine culture [facility] No Panel InformationOrdered By: Vickey Moeller on 06-06-2024 Miscellaneous Pathology Test See comment [facility] Comment on above: See report. Scanned copy available in EMR. Pathology Request for Lab Co rpon 06-06-2024 Pathology Request for Lab Malina Normal [facility] Comment on above: Order Comment: PATH SPECIMEN- GI Result Comment: See report. Scanned copy available in EMR. PERFORMED BY: [place] [address] PATHOLOGIST FUND RAISER DEE JENNINGS M.D. Performed By: #### E SR, CMP, B12, CBC, MG #### [address] Laboratory - Chemistry and C hemistry - challengeon 05-30-2024 Natriuretic peptide B (Bld) [Mass/Vol] 213.0 pg/mL <=1800.0 [facility] Microalbumin [Mass/volume] i n Urineon 05-30-2024 Albumin DL <= 20 mg/L (U) [Mass/Vol] Microalbumin [Mass/volume] in Urine <=30.0 [facility] No Panel Informationon 05-30 Urine Random Creatinine 87.79 mg/dL 20.00-300.0 0 [facility] Thyroid stimulating immunogl obulin (TSI) measurementon 05-30-2024 Thyroid stimulating immunoglobulins actual/normal (S) [Relative mass conc] Thyroid stimulating immunoglobulin (TSI) measurement 0.00-0.55 [facility] Comment on above: Performed at: [address] [id number] Director: Susana Beauchamp MD, Phone: [phone] Urine microalbumin/creatinin e mass ratioon 05-30-2024 Albumin/Creatinine DL <= 20 mg/L (U) [Mass ratio] Urine microalbumin/creatini ne mass ratio High 0.0-29.9 [facility] Comment on above: NO MICROALBUMINURIA 0-29 MG/GCLINICAL MICROALBUMINURIA 30-300 MG/GMACROALBUMINURIA >300 MG/G Alanine aminotransferase [En zymatic activity/volume] in Serum or PlasmaOrdered By: Clarke Bertrand on 05-11-2024 ALT [Catalytic activity/Vol] Alanine aminotransferase [Enzymatic activity/volume] in Serum or Plasma 7-52 [facility] Albumin [Mass/volume] in Ser um or Plasma by Bromocresol green (BCG) dye binding methoOrdered By: Clarke Bertrand on 05-11-2024 Albumin BCG dye [Mass/Vol] Albumin [Mass/volume] in Serum or Plasma by Bromocresol green (BCG) dye binding metho 3.5-5.7 [facility] Alkaline phosphatase [Enzyma tic activity/volume] in Serum or PlasmaOrdered By: Clarke Bertrand on 05-11-2024 ALP [Catalytic activity/Vol] Alkaline phosphatase [Enzymatic activity/volume] in Serum or Plasma 34-104 [facility] Aspartate aminotransferase [ Enzymatic activity/volume] in Serum or PlasmaOrdered By: Clarke Bertrand on 05-11-2024 AST [Catalytic activity/Vol] Aspartate aminotransferase [Enzymatic activity/volume] in Serum or Plasma 13-39 [facility] Basophils Auto (Bld) [#/Vol] Ordered By: Clarke Bertrand on 05-11-2024 Basophils (Bld) [#/Vol] Automated basoph il count 0.0-0.2 [facility] Basophils/100 WBC Auto (Bld) Ordered By: Clarke Bertrand on 05-11-2024 Basophils/100 WBC (Bld) Automated basophil % . [facility] Bilirubin.total [Mass/volume ] in Serum or PlasmaOrdered By: Clarke Bertrand on 05-11-2024 Bilirubin [Mass/Vol] Bilirubin.total [Mass/volume] in Serum or Plasma 0.3-1.0 [facility] Calcium [Mass/volume] in Ser um or PlasmaOrdered By: Clarke Bertrand on 05-11-2024 Calcium [Mass/Vol] Calcium [Mass/volume ] in Serum or Plasma 8.6-10.3 [facility] Carbon dioxide, total [Moles /volume] in Serum or PlasmaOrdered By: Clarke Bertrand on 05-11-2024 CO2 [Moles/Vol] Carbon dioxide, tota l [Moles/volume] in Serum or Plasma 21.0-31.0 [facility] Chloride [Moles/volume] in S jessica or PlasmaOrdered By: Clarke Bertrand on 05-11-2024 Chloride [Moles/Vol] Chloride [Moles/volume] in Serum or Plasma 98-107 [facility] Complete Blood Count Auto Di ffon 05-11-2024 Basophils (Bld) [#/Vol] 0.0 10*3/uL Normal 0.0-0.2 [facility] Comment on above: Performed By: #### E SR, CMP, B12, CBC, MG #### [facility] [address] [place] [address] [place] Basophils/100 WBC (Bld) 0.4 % Normal . [facility] Comment on above: Performed By: #### E SR, CMP, B12, CBC, MG #### [facility] [address] [place] [address] [place] Eosinophils (Bld) [#/Vol] 0.1 10*3/uL Normal 0.0-0.45 [facility] Comment on above: Performed By: #### E SR, CMP, B12, CBC, MG #### [facility] [address] [place] [address] [place] Eosinophils/100 WBC (Bld) 1.3 % Normal . [facility] Comment on above: Performed By: #### E SR, CMP, B12, CBC, MG #### [facility] [address] Erythrocyte distribution width (RBC) [Ratio] 18.2 % High 12.0-14.8 [facility] Comment on above: Performed By: #### E SR, CMP, B12, CBC, MG #### [address] Hematocrit (Bld) [Volume fraction] 40.5 % Normal 38.8-50.0 [facility] Comment on above: Performed By: #### E SR, CMP, B12, CBC, MG #### [address] Hemoglobin (Bld) [Mass/Vol] 13.6 g/dL Normal 13.0-17.0 [facility] Comment on above: Performed By: #### E SR, CMP, B12, CBC, MG #### [address] Lymphocytes (Bld) [#/Vol] 1.1 10*3/uL Normal 1.00-4.8 [facility] Comment on above: Performed By: #### E SR, CMP, B12, CBC, MG #### [address] Lymphocytes/100 WBC (Bld) 16.9 % Normal . [facility] Comment on above: Performed By: #### E SR, CMP, B12, CBC, MG #### [address] MCH (RBC) [Entitic mass] 30.5 pg Normal 27.5-35.2 [facility] Comment on above: Performed By: #### E SR, CMP, B12, CBC, MG #### [address] MCV (RBC) [Entitic vol] 91.1 fL Normal 83.5-101 [facility] Comment on above: Performed By: #### E SR, CMP, B12, CBC, MG #### [address] Mean Corpuscular HGB Conc 33.5 g/dL Normal 32.5-35.6 [facility] Comment on above: Performed By: #### E SR, CMP, B12, CBC, MG #### [address] Monocytes (Bld) [#/Vol] 0.9 10*3/uL High 0.0-0.8 [facility] Comment on above: Performed By: #### E SR, CMP, B12, CBC, MG #### [address] Monocytes/100 WBC (Bld) 13.9 % Normal . [facility] Comment on above: Performed By: #### E SR, CMP, B12, CBC, MG #### [address] Neutrophils (Bld) [#/Vol] 4.3 10*3/uL Normal 1.8-7.7 [facility] Comment on above: Performed By: #### E SR, CMP, B12, CBC, MG #### [address] Neutrophils/100 WBC (Bld) 67.5 % Normal . [facility] Comment on above: Performed By: #### E SR, CMP, B12, CBC, MG #### [address] NRBC% 0.1 /100{WBC} Normal 0-0.5 [facility] Comment on above: Performed By: #### E SR, CMP, B12, CBC, MG #### [address] Platelet mean volume (Bld) [Entitic vol] 9.1 fL Normal 6.6-10.1 [facility] Comment on above: Performed By: #### E SR, CMP, B12, CBC, MG #### [address] Platelets (Bld) [#/Vol] 183 10*3/uL Normal 150-450 [facility] Comment on above: Performed By: #### E SR, CMP, B12, CBC, MG #### [address] RBC (Bld) [#/Vol] 4.44 10*6/uL Normal 3.90-5.60 [facility] Comment on above: Performed By: #### E SR, CMP, B12, CBC, MG #### [address] WBC (Bld) [#/Vol] 6.3 10*3/uL Normal 4.1-10.5 [facility] Comment on above: Performed By: #### E SR, CMP, B12, CBC, MG #### [address] Comprehensive Metabolic Pane chong 05-11-2024 Albumin [Mass/Vol] 3.5 g/dL Normal 3.5-5.7 [facility] Comment on above: Performed By: #### E SR, CMP, B12, CBC, MG #### [address] Albumin/Globulin [Mass ratio] 1.1 {ratio} Normal [facility] Comment on above: Performed By: #### E SR, CMP, B12, CBC, MG #### [address] ALP [Catalytic activity/Vol] 86 U/L Normal 34-104 [facility] Comment on above: Result Comment: PERF ORMED BY: [place] [address] PATHOLOGIST FUND RAISER DEE JENNINGS M.D. Performed By: #### E SR, CMP, B12, CBC, MG #### [address] ALT [Catalytic activity/Vol] 14 U/L Normal 7-52 [facility] Comment on above: Performed By: #### E SR, CMP, B12, CBC, MG #### [address] Anion gap [Moles/Vol] 14.5 mmol/L Normal 6.0-15.0 [facility] Comment on above: Performed By: #### E SR, CMP, B12, CBC, MG #### [address] AST [Catalytic activity/Vol] 18 U/L Normal 13-39 [facility] Comment on above: Performed By: #### E SR, CMP, B12, CBC, MG #### [address] Bilirubin [Mass/Vol] 0.7 mg/dL Normal 0.3-1.0 [facility] Comment on above: Performed By: #### E SR, CMP, B12, CBC, MG #### [address] Calcium [Mass/Vol] 8.7 mg/dL Normal 8.6-10.3 [facility] Comment on above: Performed By: #### E SR, CMP, B12, CBC, MG #### [address] Chloride [Moles/Vol] 105 mmol/L Normal 98-107 [facility] Comment on above: Performed By: #### E SR, CMP, B12, CBC, MG #### [address] CO2 [Moles/Vol] 23.0 mmol/L Normal 21.0-31.0 [facility] Comment on above: Performed By: #### E SR, CMP, B12, CBC, MG #### [address] Creatinine [Mass/Vol] 0.64 mg/dL Low 0.70-1.30 [facility] Comment on above: Performed By: #### E SR, CMP, B12, CBC, MG #### [address] GFR/1.73 sq M.predicted MDRD (S/P/Bld) [Vol rate/Area] mL/min/{1.73_m2} Normal [facility] Comment on above: Performed By: #### E SR, CMP, B12, CBC, MG #### [address] Globulin (S) [Mass/Vol] 3.1 g/dL Normal [facility] Comment on above: Performed By: #### E SR, CMP, B12, CBC, MG #### [facility] [address] [place] [address] [place] Glucose [Mass/Vol] 96 mg/dL Normal 70-100 [facility] Comment on above: Result Comment: [place] Glucose Reference Range is dependent on time and content of last meal. Glucose of more than 200 mg/dL in a nonstressed, ambulatory subject supports the diagnosis of Diabetes Mellitus. ADA recommended reference range Performed By: #### E SR, CMP, B12, CBC, MG #### [facility] [address] Potassium [Moles/Vol] 3.5 mmol/L Normal 3.5-5.1 [facility] Comment on above: Performed By: #### E SR, CMP, B12, CBC, MG #### [facility] [address] Protein [Mass/Vol] 6.6 g/dL Normal 6.4-8.9 [facility] Comment on above: Performed By: #### E SR, CMP, B12, CBC, MG #### [facility] [address] [place] [address] [place] Sodium [Moles/Vol] 139 mmol/L Normal 136-145 [facility] Comment on above: Performed By: #### E SR, CMP, B12, CBC, MG #### [place] [address] [place] Urea nitrogen [Mass/Vol] 10 mg/dL Normal 7-25 [facility] Comment on above: Performed By: #### E SR, CMP, B12, CBC, MG #### [facility] [address] [place] [address] [place] Creatinine [Mass/volume] in Serum or PlasmaOrdered By: Clarke Bertrand on 05-11-2024 Creatinine [Mass/Vol] Creatinine [Mass/volume] in Serum or Plasma Low 0.70-1.30 [facility] Eosinophils Auto (Bld) [#/Vo l]Ordered By: Clarke Bertrand on 05-11-2024 Eosinophils (Bld) [#/Vol] Automated eosinophil count 0.0-0.45 [facility] Eosinophils/100 WBC Auto (Bl d)Ordered By: Clarke Bertrand on 05-11-2024 Eosinophils/100 WBC (Bld) Automated eosinophil % . [facility] Erythrocyte Sedimentation Ra basilio 05-11-2024 ESR (Bld) [Velocity] 74 mm/h High 0-19 [facility] Comment on above: Result Comment: PERF ORMED BY: [facility] [address] [place] [address] PATHOLOGIST FUND RAISER DEE JENNINGS M.D. Performed By: #### E SR, CMP, B12, CBC, MG #### [address] Erythrocyte distribution wid th Auto (RBC) [Ratio]Ordered By: Clarke Bertrand on 05-11-2024 Erythrocyte distribution width (RBC) [Ratio] Erythrocyte distribution width [Ratio] by Automated count High 12.0-14.8 [facility] Erythrocyte sedimentation ra te by Photometric methodOrdered By: Clarke Bertrand on 05-11-2024 ESR Photometric method (Bld) [Velocity] Erythrocyte sedimentation rate by Photometric method High 0-19 [facility] Globulin Calc (S) [Mass/Vol] Ordered By: Clarke Bertrand on 05-11-2024 Globulin (S) [Mass/Vol] Serum globulin measurement by calculation (mass/volume) [facility] Glucose [Mass/volume] in Ser um or PlasmaOrdered By: Clarke Bertrand on 05-11-2024 Glucose [Mass/Vol] Glucose [Mass/volume ] in Serum or Plasma 70-100 [facility] Comment on above: ADA recommended refe rence rangeRandom Glucose Reference Range is dependent on time and content of last meal. Glucose of more than 200 mg/dL in a nonstressed, ambulatory subject supports the diagnosis of Diabetes Mellitus. Hematocrit Auto (Bld) [Volum e fraction]Ordered By: Clarke Bertrand on 05-11-2024 Hematocrit (Bld) [Volume fraction] Hematocrit [Volume Fraction] of Blood by Automated count 38.8-50.0 [facility] Hemoglobin [Mass/volume] in BloodOrdered By: Clarke Bertrand on 05-11-2024 Hemoglobin (Bld) [Mass/Vol] Hemoglobin [Mass/volume] in Blood 13.0-17.0 [facility] Leukocytes [#/volume] correc constance for nucleated erythrocytes in Blood by Automated counOrdered By: Clarke Bertrand on 05-11-2024 WBC corrected for nucl RBC Auto (Bld) [#/Vol] Leukocytes [#/volume] corrected for nucleated erythrocytes in Blood by Automated coun 4.1-10.5 [facility] Lymphocytes Auto (Bld) [#/Vo l]Ordered By: Clarke Bertrand on 05-11-2024 Lymphocytes (Bld) [#/Vol] Lymphocytes [#/volume] in Blood by Automated count 1.00-4.8 [facility] Lymphocytes/100 WBC Auto (Bl d)Ordered By: Clarke Bertrand on 05-11-2024 Lymphocytes/100 WBC (Bld) Lymphocytes/100 leukocytes in Blood by Automated count . [facility] MCH Auto (RBC) [Entitic mass ]Ordered By: Clarke Bertrand on 05-11-2024 MCH (RBC) [Entitic mass] MCH [Entitic ma ss] by Automated count 27.5-35.2 [facility] MCHC Auto (RBC) [Mass/Vol]Or dered By: Clarke Bertrand on 05-11-2024 MCHC (RBC) [Mass/Vol] MCHC [Mass/volume] by Automated count 32.5-35.6 [facility] MCV Auto (RBC) [Entitic vol] Ordered By: Clarke Bertrand on 05-11-2024 MCV (RBC) [Entitic vol] MCV [Entitic vol ume] by Automated count 83.5-101 [facility] Monocytes Auto (Bld) [#/Vol] Ordered By: Clarke Bertrand on 05-11-2024 Monocytes (Bld) [#/Vol] Automated blood monocyte count High 0.0-0.8 [facility] Monocytes/100 WBC Auto (Bld) Ordered By: Clarke Bertrand on 05-11-2024 Monocytes/100 WBC (Bld) Automated monocyte % . [facility] Neutrophils Auto (Bld) [#/Vo l]Ordered By: Clarke Bertrand on 05-11-2024 Neutrophils (Bld) [#/Vol] Neutrophils [#/volume] in Blood by Automated count 1.8-7.7 [facility] Neutrophils/100 WBC Auto (Bl d)Ordered By: Clarke Bertrand on 05-11-2024 Neutrophils/100 WBC (Bld) Automated neutrophil % . [facility] No Panel InformationOrdered By: Clarke Bertrand on 05-11-2024 Estimated GFR (CKD-EPI) > 60.0 mL/Min [facility] Creatinine Clearance (Chem N/A [facility] Nucleated erythrocytes [Pres ence] in Blood by Automated countOrdered By: Clarke Bertrand on 05-11-2024 Nucleated RBC Auto Ql (Bld) Nucleated erythrocytes [Presence] in Blood by Automated count 0-0.5 [facility] Platelet mean volume Auto (B ld) [Entitic vol]Ordered By: Clarke Bertrand on 05-11-2024 Platelet mean volume (Bld) [Entitic vol] Platelet mean volume [Entitic volume] in Blood by Automated count 6.6-10.1 [facility] Platelets Auto (Bld) [#/Vol] Ordered By: Clarke Bertrand on 05-11-2024 Platelets (Bld) [#/Vol] Platelets [#/vol ume] in Blood by Automated count 150-450 [facility] Potassium [Moles/volume] in Serum or PlasmaOrdered By: Clarke Bertrand on 05-11-2024 Potassium [Moles/Vol] Potassium [Moles/volume] in Serum or Plasma 3.5-5.1 [facility] Protein [Mass/volume] in Ser um or PlasmaOrdered By: Clarke Bertrand on 05-11-2024 Protein [Mass/Vol] Protein [Mass/volume ] in Serum or Plasma 6.4-8.9 [facility] RBC Auto (Bld) [#/Vol]Ordere d By: Clarke Bertrand on 05-11-2024 RBC (Bld) [#/Vol] Erythrocytes [#/volume] in Blood by Automated count 3.90-5.60 [facility] Serum or plasma albumin/glob ulin mass ratioOrdered By: Clarke Bertrand on 05-11-2024 Albumin/Globulin [Mass ratio] Serum or plasma albumin/globulin mass ratio [facility] Serum or plasma anion gap de terminationOrdered By: Clarke Bertrand on 05-11-2024 Anion gap [Moles/Vol] Serum or plasma an ion gap determination 6.0-15.0 [facility] Sodium [Moles/volume] in Ser um or PlasmaOrdered By: Clarke Bertrand on 05-11-2024 Sodium [Moles/Vol] Sodium [Moles/volume ] in Serum or Plasma 136-145 [facility] Urea nitrogen [Mass/volume] in Serum or PlasmaOrdered By: Clarke Bertrand on 05-11-2024 Urea nitrogen [Mass/Vol] Urea nitrogen [Mass/volume] in Serum or Plasma 7 [facility] WBC Auto (Bld) [#/Vol]Ordere d By: Clarke Bertrand on 05-11-2024 WBC (Bld) [#/Vol] Leukocytes [#/volume ] in Blood by Automated count 4.1-10.5 [facility] Influenza virus B Ag [Presen ce] in Upper respiratory specimen by Rapid immunoassayon 04-20-2024 FLUBV Ag IA.rapid Ql (Nph) Influenza virus B Ag [Presence] in Upper respiratory specimen by Rapid immunoassay [facility] No Panel Informationon 04-20 Influenza Type A (Rapid) Positive [facility] POC SARS CoV-2 Antigen Negative [facility] Alanine aminotransferase [En zymatic activity/volume] in Serum or PlasmaOrdered By: Clarke Bertrand on 02-24-2024 ALT [Catalytic activity/Vol] Alanine aminotransferase [Enzymatic activity/volume] in Serum or Plasma [facility] Albumin [Mass/volume] in Ser um or Plasma by Bromocresol green (BCG) dye binding methoOrdered By: Clarke Bertrand on 02-24-2024 Albumin BCG dye [Mass/Vol] Albumin [Mass/volume] in Serum or Plasma by Bromocresol green (BCG) dye binding metho 3.5-5.7 [facility] Alkaline phosphatase [Enzyma tic activity/volume] in Serum or PlasmaOrdered By: Clarke Bertrand on 02-24-2024 ALP [Catalytic activity/Vol] Alkaline phosphatase [Enzymatic activity/volume] in Serum or Plasma 34-104 [facility] Aspartate aminotransferase [ Enzymatic activity/volume] in Serum or PlasmaOrdered By: Clarke Bertrand on 02-24-2024 AST [Catalytic activity/Vol] Aspartate aminotransferase [Enzymatic activity/volume] in Serum or Plasma 13-39 [facility] Basophils Auto (Bld) [#/Vol] Ordered By: Clarke eBrtrand on 02-24-2024 Basophils (Bld) [#/Vol] Automated basoph il count 0.0-0.2 [facility] Basophils/100 WBC Auto (Bld) Ordered By: Clarke Bertrand on 02-24-2024 Basophils/100 WBC (Bld) Automated basophil % . [facility] Bilirubin.total [Mass/volume ] in Serum or PlasmaOrdered By: Clarke Bertrand on 02-24-2024 Bilirubin [Mass/Vol] Bilirubin.total [Mass/volume] in Serum or Plasma 0.3-1.0 [facility] Calcium [Mass/volume] in Ser um or PlasmaOrdered By: Clarke Bertrand on 02-24-2024 Calcium [Mass/Vol] Calcium [Mass/volume ] in Serum or Plasma 8.6-10.3 [facility] Carbon dioxide, total [Moles /volume] in Serum or PlasmaOrdered By: Clarke Bertrand on 02-24-2024 CO2 [Moles/Vol] Carbon dioxide, tota l [Moles/volume] in Serum or Plasma 21.0-31.0 [facility] Chloride [Moles/volume] in S jessica or PlasmaOrdered By: Clarke Bertrand on 02-24-2024 Chloride [Moles/Vol] Chloride [Moles/volume] in Serum or Plasma 98-107 [facility] Complete Blood Count Auto Di ffon 02-24-2024 Basophils (Bld) [#/Vol] 0.0 10*3/uL Normal 0.0-0.2 [facility] Comment on above: Performed By: #### E SR, CMP, B12, CBC, MG #### [facility] [address] Basophils/100 WBC (Bld) 0.5 % Normal . [facility] Comment on above: Performed By: #### E SR, CMP, B12, CBC, MG #### [address] Eosinophils (Bld) [#/Vol] 0.3 10*3/uL Normal 0.0-0.45 [facility] Comment on above: Performed By: #### E SR, CMP, B12, CBC, MG #### [address] Eosinophils/100 WBC (Bld) 4.1 % Normal . [facility] Comment on above: Performed By: #### E SR, CMP, B12, CBC, MG #### [address] Erythrocyte distribution width (RBC) [Ratio] 17.4 % High 12.0-14.8 [facility] Comment on above: Performed By: #### E SR, CMP, B12, CBC, MG #### [address] Hematocrit (Bld) [Volume fraction] 42.5 % Normal 38.8-50.0 [facility] Comment on above: Performed By: #### E SR, CMP, B12, CBC, MG #### [address] Hemoglobin (Bld) [Mass/Vol] 14.2 g/dL Normal 13.0-17.0 [facility] Comment on above: Performed By: #### E SR, CMP, B12, CBC, MG #### [address] Lymphocytes (Bld) [#/Vol] 1.4 10*3/uL Normal 1.00-4.8 [facility] Comment on above: Performed By: #### E SR, CMP, B12, CBC, MG #### [address] Lymphocytes/100 WBC (Bld) 21.7 % Normal . [facility] Comment on above: Performed By: #### E SR, CMP, B12, CBC, MG #### [address] MCH (RBC) [Entitic mass] 30.1 pg Normal 27.5-35.2 [facility] Comment on above: Performed By: #### E SR, CMP, B12, CBC, MG #### [address] MCV (RBC) [Entitic vol] 90.1 fL Normal 83.5-101 [facility] Comment on above: Performed By: #### E SR, CMP, B12, CBC, MG #### [address] Mean Corpuscular HGB Conc 33.4 g/dL Normal 32.5-35.6 [facility] Comment on above: Performed By: #### E SR, CMP, B12, CBC, MG #### [address] Monocytes (Bld) [#/Vol] 0.7 10*3/uL Normal 0.0-0.8 [facility] Comment on above: Performed By: #### E SR, CMP, B12, CBC, MG #### [address] Monocytes/100 WBC (Bld) 11.7 % Normal . [facility] Comment on above: Performed By: #### E SR, CMP, B12, CBC, MG #### [address] Neutrophils (Bld) [#/Vol] 3.9 10*3/uL Normal 1.8-7.7 [facility] Comment on above: Performed By: #### E SR, CMP, B12, CBC, MG #### [address] Neutrophils/100 WBC (Bld) 62.0 % Normal . [facility] Comment on above: Performed By: #### E SR, CMP, B12, CBC, MG #### [address] NRBC% 0.1 /100{WBC} Normal 0-0.5 [facility] Comment on above: Performed By: #### E SR, CMP, B12, CBC, MG #### [address] Platelet mean volume (Bld) [Entitic vol] 8.9 fL Normal 6.6-10.1 [facility] Comment on above: Performed By: #### E SR, CMP, B12, CBC, MG #### [address] Platelets (Bld) [#/Vol] 218 10*3/uL Normal 150-450 [facility] Comment on above: Performed By: #### E SR, CMP, B12, CBC, MG #### [address] RBC (Bld) [#/Vol] 4.72 10*6/uL Normal 3.90-5.60 [facility] Comment on above: Performed By: #### E SR, CMP, B12, CBC, MG #### [address] WBC (Bld) [#/Vol] 6.3 10*3/uL Normal 4.1-10.5 [facility] Comment on above: Performed By: #### E SR, CMP, B12, CBC, MG #### [address] Comprehensive Metabolic Pane chong 02-24-2024 Albumin [Mass/Vol] 3.8 g/dL Normal 3.5-5.7 [facility] Comment on above: Performed By: #### E SR, CMP, B12, CBC, MG #### [address] Albumin/Globulin [Mass ratio] 1.1 {ratio} Normal [facility] Comment on above: Performed By: #### E SR, CMP, B12, CBC, MG #### [address] ALP [Catalytic activity/Vol] 87 U/L Normal 34-104 [facility] Comment on above: Result Comment: PERF ORMED BY: [place] [address] PATHOLOGIST FUND RAISER DEE JENNINGS M.D. Performed By: #### E SR, CMP, B12, CBC, MG #### [address] ALT [Catalytic activity/Vol] 19 U/L Normal 7-52 [facility] Comment on above: Performed By: #### E SR, CMP, B12, CBC, MG #### [address] Anion gap [Moles/Vol] 12.4 mmol/L Normal 6.0-15.0 [facility] Comment on above: Performed By: #### E SR, CMP, B12, CBC, MG #### [address] AST [Catalytic activity/Vol] 18 U/L Normal 13-39 [facility] Comment on above: Performed By: #### E SR, CMP, B12, CBC, MG #### [address] Bilirubin [Mass/Vol] 0.5 mg/dL Normal 0.3-1.0 [facility] Comment on above: Performed By: #### E SR, CMP, B12, CBC, MG #### [address] Calcium [Mass/Vol] 9.2 mg/dL Normal 8.6-10.3 [facility] Comment on above: Performed By: #### E SR, CMP, B12, CBC, MG #### [place] [address] [place] Chloride [Moles/Vol] 104 mmol/L Normal 98-107 [facility] Comment on above: Performed By: #### E SR, CMP, B12, CBC, MG #### [address] CO2 [Moles/Vol] 28.2 mmol/L Normal 21.0-31.0 [facility] Comment on above: Performed By: #### E SR, CMP, B12, CBC, MG #### [address] Creatinine [Mass/Vol] 0.76 mg/dL Normal 0.70-1.30 [facility] Comment on above: Performed By: #### E SR, CMP, B12, CBC, MG #### [address] GFR/1.73 sq M.predicted MDRD (S/P/Bld) [Vol rate/Area] mL/min/{1.73_m2} Normal [facility] Comment on above: Performed By: #### E SR, CMP, B12, CBC, MG #### [address] Globulin (S) [Mass/Vol] 3.4 g/dL Normal [facility] Comment on above: Performed By: #### E SR, CMP, B12, CBC, MG #### [address] Glucose [Mass/Vol] 96 mg/dL Normal 70-100 [facility] Comment on above: Result Comment: [facility] [place] Glucose Reference Range is dependent on time and content of last meal. Glucose of more than 200 mg/dL in a nonstressed, ambulatory subject supports the diagnosis of Diabetes Mellitus. ADA recommended reference range Performed By: #### E SR, CMP, B12, CBC, MG #### [address] Potassium [Moles/Vol] 3.6 mmol/L Normal 3.5-5.1 [facility] Comment on above: Performed By: #### E SR, CMP, B12, CBC, MG #### [address] Protein [Mass/Vol] 7.2 g/dL Normal 6.4-8.9 [facility] Comment on above: Performed By: #### E SR, CMP, B12, CBC, MG #### [address] Sodium [Moles/Vol] 141 mmol/L Normal 136-145 [facility] Comment on above: Performed By: #### E SR, CMP, B12, CBC, MG #### [facility] [address] [place] [address] Urea nitrogen [Mass/Vol] 13 mg/dL Normal 7-25 [facility] Comment on above: Performed By: #### E SR, CMP, B12, CBC, MG #### [facility] [address] [place] [address] Creatinine [Mass/volume] in Serum or PlasmaOrdered By: Clarke Bertrand on 02-24-2024 Creatinine [Mass/Vol] Creatinine [Mass/volume] in Serum or Plasma 0.70-1.30 [facility] Eosinophils Auto (Bld) [#/Vo l]Ordered By: Clarke Bertrand on 02-24-2024 Eosinophils (Bld) [#/Vol] Automated eosinophil count 0.0-0.45 [facility] Eosinophils/100 WBC Auto (Bl d)Ordered By: Clarke Bertrand on 02-24-2024 Eosinophils/100 WBC (Bld) Automated eosinophil % . [facility] Erythrocyte Sedimentation Ra basilio 02-24-2024 ESR (Bld) [Velocity] 55 mm/h High 0-19 [facility] Comment on above: Result Comment: PERF ORMED BY: [place] [address] PATHOLOGIST FUND RAISER DEE JENNINGS M.D. Performed By: #### E SR, CMP, B12, CBC, MG #### [facility] [address] [place] [address] Erythrocyte distribution wid th Auto (RBC) [Ratio]Ordered By: Clarke Bertrand on 02-24-2024 Erythrocyte distribution width (RBC) [Ratio] Erythrocyte distribution width [Ratio] by Automated count High 12.0-14.8 [facility] Erythrocyte sedimentation ra te by Photometric methodOrdered By: Clarke Bertrand on 02-24-2024 ESR Photometric method (Bld) [Velocity] Erythrocyte sedimentation rate by Photometric method High 0-19 [facility] Globulin Calc (S) [Mass/Vol] Ordered By: Clarke Bertrand on 02-24-2024 Globulin (S) [Mass/Vol] Serum globulin measurement by calculation (mass/volume) [facility] Glucose [Mass/volume] in Ser um or PlasmaOrdered By: Clarke Bertrand on 02-24-2024 Glucose [Mass/Vol] Glucose [Mass/volume ] in Serum or Plasma 70-100 [facility] Comment on above: ADA recommended refe rence rangeRandom Glucose Reference Range is dependent on time and content of last meal. Glucose of more than 200 mg/dL in a nonstressed, ambulatory subject supports the diagnosis of Diabetes Mellitus. Hematocrit Auto (Bld) [Volum e fraction]Ordered By: Clarke Bertrand on 02-24-2024 Hematocrit (Bld) [Volume fraction] Hematocrit [Volume Fraction] of Blood by Automated count 38.8-50.0 [facility] Hemoglobin [Mass/volume] in BloodOrdered By: Clarke Bertrand on 02-24-2024 Hemoglobin (Bld) [Mass/Vol] Hemoglobin [Mass/volume] in Blood 13.0-17.0 [facility] Leukocytes [#/volume] correc constance for nucleated erythrocytes in Blood by Automated counOrdered By: Clarke Bertrand on 02-24-2024 WBC corrected for nucl RBC Auto (Bld) [#/Vol] Leukocytes [#/volume] corrected for nucleated erythrocytes in Blood by Automated coun 4.1-10.5 [facility] Lymphocytes Auto (Bld) [#/Vo l]Ordered By: Clarke Bertrand on 02-24-2024 Lymphocytes (Bld) [#/Vol] Lymphocytes [#/volume] in Blood by Automated count 1.00-4.8 [facility] Lymphocytes/100 WBC Auto (Bl d)Ordered By: Clarke Bertrand on 02-24-2024 Lymphocytes/100 WBC (Bld) Lymphocytes/100 leukocytes in Blood by Automated count . [facility] MCH Auto (RBC) [Entitic mass ]Ordered By: Clarke Bertrand on 02-24-2024 MCH (RBC) [Entitic mass] MCH [Entitic ma ss] by Automated count 27.5-35.2 [facility] MCHC Auto (RBC) [Mass/Vol]Or dered By: Clarke Bertrand on 02-24-2024 MCHC (RBC) [Mass/Vol] MCHC [Mass/volume] by Automated count 32.5-35.6 [facility] MCV Auto (RBC) [Entitic vol] Ordered By: Clarke Bertrand on 02-24-2024 MCV (RBC) [Entitic vol] MCV [Entitic vol ume] by Automated count 83.5-101 [facility] Monocytes Auto (Bld) [#/Vol] Ordered By: Clarke Bertrand on 02-24-2024 Monocytes (Bld) [#/Vol] Automated blood monocyte count 0.0-0.8 [facility] Monocytes/100 WBC Auto (Bld) Ordered By: Clarke Bertrand on 02-24-2024 Monocytes/100 WBC (Bld) Automated monocyte % . [facility] Neutrophils Auto (Bld) [#/Vo l]Ordered By: Clarke Bertrand on 02-24-2024 Neutrophils (Bld) [#/Vol] Neutrophils [#/volume] in Blood by Automated count 1.8-7.7 [facility] Neutrophils/100 WBC Auto (Bl d)Ordered By: Clarke Bertrand on 02-24-2024 Neutrophils/100 WBC (Bld) Automated neutrophil % . [facility] No Panel InformationOrdered By: Clarke Bertrand on 02-24-2024 Estimated GFR (CKD-EPI) > 60.0 mL/Min [facility] Creatinine Clearance (Chem N/A [facility] Nucleated erythrocytes [Pres ence] in Blood by Automated countOrdered By: Clarke Bertrand on 02-24-2024 Nucleated RBC Auto Ql (Bld) Nucleated erythrocytes [Presence] in Blood by Automated count 0-0.5 [facility] Platelet mean volume Auto (B ld) [Entitic vol]Ordered By: Clarke Bertrand on 02-24-2024 Platelet mean volume (Bld) [Entitic vol] Platelet mean volume [Entitic volume] in Blood by Automated count 6.6-10.1 [facility] Platelets Auto (Bld) [#/Vol] Ordered By: Clarke Bertrand on 02-24-2024 Platelets (Bld) [#/Vol] Platelets [#/vol ume] in Blood by Automated count 150-450 [facility] Potassium [Moles/volume] in Serum or PlasmaOrdered By: Clarke Bertrand on 02-24-2024 Potassium [Moles/Vol] Potassium [Moles/volume] in Serum or Plasma 3.5-5.1 [facility] Protein [Mass/volume] in Ser um or PlasmaOrdered By: Clarke Bertrand on 02-24-2024 Protein [Mass/Vol] Protein [Mass/volume ] in Serum or Plasma 6.4-8.9 [facility] RBC Auto (Bld) [#/Vol]Ordere d By: Clarke Bertrand on 02-24-2024 RBC (Bld) [#/Vol] Erythrocytes [#/volume] in Blood by Automated count 3.90-5.60 [facility] Serum or plasma albumin/glob ulin mass ratioOrdered By: Clarke Bertrand on 02-24-2024 Albumin/Globulin [Mass ratio] Serum or plasma albumin/globulin mass ratio [facility] Serum or plasma anion gap de terminationOrdered By: Clarke Bertrand on 02-24-2024 Anion gap [Moles/Vol] Serum or plasma an ion gap determination 6.0-15.0 [facility] Sodium [Moles/volume] in Ser um or PlasmaOrdered By: Clarke Bertrand on 02-24-2024 Sodium [Moles/Vol] Sodium [Moles/volume ] in Serum or Plasma 136-145 [facility] Urea nitrogen [Mass/volume] in Serum or PlasmaOrdered By: Clarke Bertrand on 02-24-2024 Urea nitrogen [Mass/Vol] Urea nitrogen [Mass/volume] in Serum or Plasma 7-25 [facility] WBC Auto (Bld) [#/Vol]Ordere d By: Clarke Bertrand on 02-24-2024 WBC (Bld) [#/Vol] Leukocytes [#/volume ] in Blood by Automated count 4.1-10.5 [facility] Alanine aminotransferase [En zymatic activity/volume] in Serum or PlasmaOrdered By: Lashell Villar on 12-30-2023 ALT [Catalytic activity/Vol] Alanine aminotransferase [Enzymatic activity/volume] in Serum or Plasma 7-52 [facility] Albumin [Mass/volume] in Ser um or Plasma by Bromocresol green (BCG) dye binding methoOrdered By: Lashell Villar on 12-30-2023 Albumin BCG dye [Mass/Vol] Albumin [Mass/volume] in Serum or Plasma by Bromocresol green (BCG) dye binding metho 3.5-5.7 [facility] Alkaline phosphatase [Enzyma tic activity/volume] in Serum or PlasmaOrdered By: Lashell Villar on 12-30-2023 ALP [Catalytic activity/Vol] Alkaline phosphatase [Enzymatic activity/volume] in Serum or Plasma 34-104 [facility] Aspartate aminotransferase [ Enzymatic activity/volume] in Serum or PlasmaOrdered By: Lashell Villar on 12-30-2023 AST [Catalytic activity/Vol] Aspartate aminotransferase [Enzymatic activity/volume] in Serum or Plasma 13-39 [facility] Basophils Auto (Bld) [#/Vol] Ordered By: Lashell Villar on 12-30-2023 Basophils (Bld) [#/Vol] Automated basoph il count 0.0-0.2 [facility] Basophils/100 WBC Auto (Bld) Ordered By: Lashell Villar on 12-30-2023 Basophils/100 WBC (Bld) Automated basophil % . [facility] Bilirubin.total [Mass/volume ] in Serum or PlasmaOrdered By: Lashell Villar on 12-30-2023 Bilirubin [Mass/Vol] Bilirubin.total [Mass/volume] in Serum or Plasma 0.3-1.0 [facility] Calcium [Mass/volume] in Ser um or PlasmaOrdered By: Lashell Villar on 12-30-2023 Calcium [Mass/Vol] Calcium [Mass/volume ] in Serum or Plasma 8.6-10.3 [facility] Carbon dioxide, total [Moles /volume] in Serum or PlasmaOrdered By: Lashell Villar on 12-30-2023 CO2 [Moles/Vol] Carbon dioxide, tota l [Moles/volume] in Serum or Plasma 21.0-31.0 [facility] Chloride [Moles/volume] in S jessica or PlasmaOrdered By: Lashell Villar on 12-30-2023 Chloride [Moles/Vol] Chloride [Moles/volume] in Serum or Plasma 98-107 [facility] Complete Blood Count Auto Di ffon 12-30-2023 Basophils (Bld) [#/Vol] 0.0 10*3/uL Normal 0.0-0.2 [facility] Comment on above: Performed By: #### E SR, CMP, B12, CBC, MG #### [address] Basophils/100 WBC (Bld) 0.6 % Normal . [facility] Comment on above: Performed By: #### E SR, CMP, B12, CBC, MG #### [address] Eosinophils (Bld) [#/Vol] 0.2 10*3/uL Normal 0.0-0.45 [facility] Comment on above: Performed By: #### E SR, CMP, B12, CBC, MG #### [address] Eosinophils/100 WBC (Bld) 5.0 % Normal . [facility] Comment on above: Performed By: #### E SR, CMP, B12, CBC, MG #### [address] Erythrocyte distribution width (RBC) [Ratio] 16.6 % High 12.0-14.8 [facility] Comment on above: Performed By: #### E SR, CMP, B12, CBC, MG #### [address] Hematocrit (Bld) [Volume fraction] 42.4 % Normal 38.8-50.0 [facility] Comment on above: Performed By: #### E SR, CMP, B12, CBC, MG #### [address] Hemoglobin (Bld) [Mass/Vol] 14.2 g/dL Normal 13.0-17.0 [facility] Comment on above: Performed By: #### E SR, CMP, B12, CBC, MG #### [address] Lymphocytes (Bld) [#/Vol] 1.2 10*3/uL Normal 1.00-4.8 [facility] Comment on above: Performed By: #### E SR, CMP, B12, CBC, MG #### [address] Lymphocytes/100 WBC (Bld) 23.8 % Normal . [facility] Comment on above: Performed By: #### E SR, CMP, B12, CBC, MG #### [address] MCH (RBC) [Entitic mass] 30.8 pg Normal 27.5-35.2 [facility] Comment on above: Performed By: #### E SR, CMP, B12, CBC, MG #### [address] MCV (RBC) [Entitic vol] 92.2 fL Normal 83.5-101 [facility] Comment on above: Performed By: #### E SR, CMP, B12, CBC, MG #### [address] Mean Corpuscular HGB Conc 33.4 g/dL Normal 32.5-35.6 [facility] Comment on above: Performed By: #### E SR, CMP, B12, CBC, MG #### [address] Monocytes (Bld) [#/Vol] 0.6 10*3/uL Normal 0.0-0.8 [facility] Comment on above: Performed By: #### E SR, CMP, B12, CBC, MG #### [address] Monocytes/100 WBC (Bld) 12.7 % Normal . [facility] Comment on above: Performed By: #### E SR, CMP, B12, CBC, MG #### [address] Neutrophils (Bld) [#/Vol] 2.8 10*3/uL Normal 1.8-7.7 [facility] Comment on above: Performed By: #### E SR, CMP, B12, CBC, MG #### [address] Neutrophils/100 WBC (Bld) 57.9 % Normal . [facility] Comment on above: Performed By: #### E SR, CMP, B12, CBC, MG #### [address] NRBC% 0.1 /100{WBC} Normal 0-0.5 [facility] Comment on above: Performed By: #### E SR, CMP, B12, CBC, MG #### [address] Platelet mean volume (Bld) [Entitic vol] 9.0 fL Normal 6.6-10.1 [facility] Comment on above: Performed By: #### E SR, CMP, B12, CBC, MG #### [address] Platelets (Bld) [#/Vol] 183 10*3/uL Normal 150-450 [facility] Comment on above: Performed By: #### E SR, CMP, B12, CBC, MG #### [address] RBC (Bld) [#/Vol] 4.60 10*6/uL Normal 3.90-5.60 [facility] Comment on above: Performed By: #### E SR, CMP, B12, CBC, MG #### [address] WBC (Bld) [#/Vol] 4.9 10*3/uL Normal 4.1-10.5 [facility] Comment on above: Performed By: #### E SR, CMP, B12, CBC, MG #### [address] Comprehensive Metabolic Pane [facility] [place] 12-30-2023 Albumin [Mass/Vol] 3.6 g/dL Normal 3.5-5.7 [facility] Comment on above: Performed By: #### E SR, CMP, B12, CBC, MG #### [address] Albumin/Globulin [Mass ratio] 1.0 {ratio} Normal [facility] Comment on above: Performed By: #### E SR, CMP, B12, CBC, MG #### [address] ALP [Catalytic activity/Vol] 86 U/L Normal 34-104 [facility] Comment on above: Performed By: #### E SR, CMP, B12, CBC, MG #### [address] ALT [Catalytic activity/Vol] 16 U/L Normal 7-52 [facility] Comment on above: Performed By: #### E SR, CMP, B12, CBC, MG #### [address] Anion gap [Moles/Vol] 12.7 mmol/L Normal 6.0-15.0 [facility] Comment on above: Performed By: #### E SR, CMP, B12, CBC, MG #### [address] AST [Catalytic activity/Vol] 19 U/L Normal 13-39 [facility] Comment on above: Performed By: #### E SR, CMP, B12, CBC, MG #### [address] Bilirubin [Mass/Vol] 0.5 mg/dL Normal 0.3-1.0 [facility] Comment on above: Performed By: #### E SR, CMP, B12, CBC, MG #### [address] Calcium [Mass/Vol] 9.0 mg/dL Normal 8.6-10.3 [facility] Comment on above: Performed By: #### E SR, CMP, B12, CBC, MG #### [address] [address] [place] Chloride [Moles/Vol] 105 mmol/L Normal 98-107 [facility] Comment on above: Performed By: #### E SR, CMP, B12, CBC, MG #### [address] CO2 [Moles/Vol] 25.9 mmol/L Normal 21.0-31.0 [facility] Comment on above: Performed By: #### E SR, CMP, B12, CBC, MG #### [address] Creatinine [Mass/Vol] 0.83 mg/dL Normal 0.70-1.30 [facility] Comment on above: Performed By: #### E SR, CMP, B12, CBC, MG #### [address] GFR/1.73 sq M.predicted MDRD (S/P/Bld) [Vol rate/Area] mL/min/{1.73_m2} Normal [facility] Comment on above: Performed By: #### E SR, CMP, B12, CBC, MG #### [address] Globulin (S) [Mass/Vol] 3.5 g/dL Normal [facility] Comment on above: Performed By: #### E SR, CMP, B12, CBC, MG #### [address] Glucose [Mass/Vol] 95 mg/dL Normal 70-100 [facility] Comment on above: Result Comment: [place] Glucose Reference Range is dependent on time and content of last meal. Glucose of more than 200 mg/dL in a nonstressed, ambulatory subject supports the diagnosis of Diabetes Mellitus. ADA recommended reference range Performed By: #### E SR, CMP, B12, CBC, MG #### [address] Potassium [Moles/Vol] 3.6 mmol/L Normal 3.5-5.1 [facility] Comment on above: Performed By: #### E SR, CMP, B12, CBC, MG #### [facility] [address] Protein [Mass/Vol] 7.1 g/dL Normal 6.4-8.9 [facility] Comment on above: Performed By: #### E SR, CMP, B12, CBC, MG #### [address] Sodium [Moles/Vol] 140 mmol/L Normal 136-145 [facility] Comment on above: Performed By: #### E SR, CMP, B12, CBC, MG #### [address] Urea nitrogen [Mass/Vol] 10 mg/dL Normal 7-25 [facility] Comment on above: Performed By: #### E SR, CMP, B12, CBC, MG #### [address] Creatinine [Mass/volume] in Serum or PlasmaOrdered By: Lashell Villar on 12-30-2023 Creatinine [Mass/Vol] Creatinine [Mass/volume] in Serum or Plasma 0.70-1.30 [facility] Eosinophils Auto (Bld) [#/Vo l]Ordered By: Lashell Villar on 12-30-2023 Eosinophils (Bld) [#/Vol] Automated eosinophil count 0.0-0.45 [facility] Eosinophils/100 WBC Auto (Bl d)Ordered By: Lashell Villar on 12-30-2023 Eosinophils/100 WBC (Bld) Automated eosinophil % . [facility] Erythrocyte Sedimentation Ra basilio 12-30-2023 ESR (Bld) [Velocity] 59 mm/h High 0-19 [facility] Comment on above: Result Comment: PERF ORMED BY: [place] [address] PATHOLOGIST FUND RAISER DEE JENNINGS M.D. Performed By: #### E SR, CMP, B12, CBC, MG #### [address] Erythrocyte distribution wid th Auto (RBC) [Ratio]Ordered By: Lashell Villar on 12-30-2023 Erythrocyte distribution width (RBC) [Ratio] Erythrocyte distribution width [Ratio] by Automated count High 12.0-14.8 [facility] Erythrocyte sedimentation ra te by Photometric methodOrdered By: Lashell Villar on 12-30-2023 ESR Photometric method (Bld) [Velocity] Erythrocyte sedimentation rate by Photometric method High 0-19 [facility] Globulin Calc (S) [Mass/Vol] Ordered By: Lashell Villar on 12-30-2023 Globulin (S) [Mass/Vol] Serum globulin measurement by calculation (mass/volume) [facility] Glucose [Mass/volume] in Ser um or PlasmaOrdered By: Lashell Villar on 12-30-2023 Glucose [Mass/Vol] Glucose [Mass/volume ] in Serum or Plasma 70-100 [facility] Comment on above: ADA recommended refe rence rangeRandom Glucose Reference Range is dependent on time and content of last meal. Glucose of more than 200 mg/dL in a nonstressed, ambulatory subject supports the diagnosis of Diabetes Mellitus. Hematocrit Auto (Bld) [Volum e fraction]Ordered By: Lashell Villar on 12-30-2023 Hematocrit (Bld) [Volume fraction] Hematocrit [Volume Fraction] of Blood by Automated count 38.8-50.0 [facility] Hemoglobin [Mass/volume] in BloodOrdered By: Lashell Villar on 12-30-2023 Hemoglobin (Bld) [Mass/Vol] Hemoglobin [Mass/volume] in Blood 13.0-17.0 [facility] Leukocytes [#/volume] correc constance for nucleated erythrocytes in Blood by Automated counOrdered By: Lashell Villar on 12-30-2023 WBC corrected for nucl RBC Auto (Bld) [#/Vol] Leukocytes [#/volume] corrected for nucleated erythrocytes in Blood by Automated coun 4.1-10.5 [facility] Lymphocytes Auto (Bld) [#/Vo l]Ordered By: Lashell Villar on 12-30-2023 Lymphocytes (Bld) [#/Vol] Lymphocytes [#/volume] in Blood by Automated count 1.00-4.8 [facility] Lymphocytes/100 WBC Auto (Bl d)Ordered By: Lashell Villar on 12-30-2023 Lymphocytes/100 WBC (Bld) Lymphocytes/100 leukocytes in Blood by Automated count . [facility] MCH Auto (RBC) [Entitic mass ]Ordered By: Lashell Villar on 12-30-2023 MCH (RBC) [Entitic mass] MCH [Entitic ma ss] by Automated count 27.5-35.2 [facility] MCHC Auto (RBC) [Mass/Vol]Or dered By: Lashell Villar on 12-30-2023 MCHC (RBC) [Mass/Vol] MCHC [Mass/volume] by Automated count 32.5-35.6 [facility] MCV Auto (RBC) [Entitic vol] Ordered By: Lashell Villar on 12-30-2023 MCV (RBC) [Entitic vol] MCV [Entitic vol ume] by Automated count 83.5-101 [facility] Magnesiumon 12-30-2023 Magnesium [Mass/Vol] 1.8 mg/dL Low 1.9-2.7 [facility] Comment on above: Performed By: #### E SR, CMP, B12, CBC, MG #### [address] Magnesium [Mass/volume] in S jessica or PlasmaOrdered By: Lashell Villar on 12-30-2023 Magnesium [Mass/Vol] Magnesium [Mass/volume] in Serum or Plasma Low 1.9-2.7 [facility] Monocytes Auto (Bld) [#/Vol] Ordered By: Lashell Villar on 12-30-2023 Monocytes (Bld) [#/Vol] Automated blood monocyte count 0.0-0.8 [facility] Monocytes/100 WBC Auto (Bld) Ordered By: Lashell Villar on 12-30-2023 Monocytes/100 WBC (Bld) Automated monocyte % . [facility] Neutrophils Auto (Bld) [#/Vo l]Ordered By: Lashell Villar on 12-30-2023 Neutrophils (Bld) [#/Vol] Neutrophils [#/volume] in Blood by Automated count 1.8-7.7 [facility] Neutrophils/100 WBC Auto (Bl d)Ordered By: Lashell Villar on 12-30-2023 Neutrophils/100 WBC (Bld) Automated neutrophil % . [facility] No Panel InformationOrdered By: Lashell Villar on 12-30-2023 Estimated GFR (CKD-EPI) > 60.0 mL/Min [facility] Creatinine Clearance (Chem N/A [facility] Nucleated erythrocytes [Pres ence] in Blood by Automated countOrdered By: Lashell Villar on 12-30-2023 Nucleated RBC Auto Ql (Bld) Nucleated erythrocytes [Presence] in Blood by Automated count 0-0.5 [facility] Platelet mean volume Auto (B ld) [Entitic vol]Ordered By: Lashell Villar on 12-30-2023 Platelet mean volume (Bld) [Entitic vol] Platelet mean volume [Entitic volume] in Blood by Automated count 6.6-10.1 [facility] Platelets Auto (Bld) [#/Vol] Ordered By: Lashell Villar on 12-30-2023 Platelets (Bld) [#/Vol] Platelets [#/vol ume] in Blood by Automated count 150-450 [facility] Potassium [Moles/volume] in Serum or PlasmaOrdered By: Lashell Villar on 12-30-2023 Potassium [Moles/Vol] Potassium [Moles/volume] in Serum or Plasma 3.5-5.1 [facility] Protein [Mass/volume] in Ser um or PlasmaOrdered By: Lashell Villar on 12-30-2023 Protein [Mass/Vol] Protein [Mass/volume ] in Serum or Plasma 6.4-8.9 [facility] RBC Auto (Bld) [#/Vol]Ordere d By: Lashell Villar on 12-30-2023 RBC (Bld) [#/Vol] Erythrocytes [#/volume] in Blood by Automated count 3.90-5.60 [facility] Serum or plasma albumin/glob ulin mass ratioOrdered By: Lashell Villar on 12-30-2023 Albumin/Globulin [Mass ratio] Serum or plasma albumin/globulin mass ratio [facility] Serum or plasma anion gap de terminationOrdered By: Lashell Villar on 12-30-2023 Anion gap [Moles/Vol] Serum or plasma an ion gap determination 6.0-15.0 [facility] Sodium [Moles/volume] in Ser um or PlasmaOrdered By: Lashell Villar on 12-30-2023 Sodium [Moles/Vol] Sodium [Moles/volume ] in Serum or Plasma 136-145 [facility] Urea nitrogen [Mass/volume] in Serum or PlasmaOrdered By: Lashell Villar on 12-30-2023 Urea nitrogen [Mass/Vol] Urea nitrogen [Mass/volume] in Serum or Plasma 7-25 [facility] Vitamin B12on 12-30-2023 Cobalamin (Vitamin B12) [Mass/Vol] 1136 pg/mL High 180-914 [facility] Comment on above: Result Comment: PERF ORMED BY: [address] [place] [address] PATHOLOGIST FUND RAISER DEE JENNINGS M.D. Performed By: #### E SR, CMP, B12, CBC, MG #### [facility] [address] [place] [address] Vitamin B12 ser/plasOrdered By: Lashell Villar on 12-30-2023 Cobalamin (Vitamin B12) [Mass/Vol] Vitamin B12 ser/plas High 180-914 [facility] WBC Auto (Bld) [#/Vol]Ordere d By: Lashell Villar on 12-30-2023 WBC (Bld) [#/Vol] Leukocytes [#/volume ] in Blood by Automated count 4.1-10.5 [facility] Alanine aminotransferase [En zymatic activity/volume] in Serum or PlasmaOrdered By: Lashell Villar on 09-09-2023 ALT [Catalytic activity/Vol] 21 U/L Normal 7-52 [facility] Comment on above: Performed By: #### E SR, CMP, B12, CBC, MG #### [facility] [address] [place] [address] Albumin [Mass/volume] in Ser um or Plasma by Bromocresol green (BCG) dye binding methoOrdered By: Lashell Villar on 09-09-2023 Albumin BCG dye [Mass/Vol] 3.9 g/dL 3.5-5.7 [facility] Alkaline phosphatase [Enzyma tic activity/volume] in Serum or PlasmaOrdered By: Lashell Villar on 09-09-2023 ALP [Catalytic activity/Vol] 74 U/L Normal 34-104 [facility] Comment on above: Performed By: #### E SR, CMP, B12, CBC, MG #### [address] Aspartate aminotransferase [ Enzymatic activity/volume] in Serum or PlasmaOrdered By: Lashell Villar on 09-09-2023 AST [Catalytic activity/Vol] 25 U/L Normal 13-39 [facility] Comment on above: Performed By: #### E SR, CMP, B12, CBC, MG #### [address] Automated basophil %Ordered By: Lashell Villar on 09-09-2023 Basophils/100 WBC (Bld) 0.7 % Normal . [facility] Comment on above: Performed By: #### E SR, CMP, B12, CBC, MG #### [address] Automated basophil countOrde red By: Lashell Villar on 09-09-2023 Basophils (Bld) [#/Vol] 0.0 10*3/uL Normal 0.0-0.2 [facility] Comment on above: Performed By: #### E SR, CMP, B12, CBC, MG #### [address] Automated blood monocyte cou ntOrdered By: Lashell Villar on 09-09-2023 Monocytes (Bld) [#/Vol] 0.6 10*3/uL Normal 0.0-0.8 [facility] Comment on above: Performed By: #### E SR, CMP, B12, CBC, MG #### [facility] [address] Automated eosinophil %Ordere d By: Lashell Villar on 09-09-2023 Eosinophils/100 WBC (Bld) 5.0 % Normal . [facility] Comment on above: Performed By: #### E SR, CMP, B12, CBC, MG #### [facility] [address] Automated eosinophil countOr dered By: Lashell Villar on 09-09-2023 Eosinophils (Bld) [#/Vol] 0.2 10*3/uL Normal 0.0-0.45 [facility] Comment on above: Performed By: #### E SR, CMP, B12, CBC, MG #### [address] Automated monocyte %Ordered By: Lashell Villar on 09-09-2023 Monocytes/100 WBC (Bld) 13.3 % Normal . [facility] Comment on above: Performed By: #### E SR, CMP, B12, CBC, MG #### [address] Automated neutrophil %Ordere d By: Lashell Villar on 09-09-2023 Neutrophils/100 WBC (Bld) 55.6 % Normal . [facility] Comment on above: Performed By: #### E SR, CMP, B12, CBC, MG #### [facility] [address] [place] [address] Bilirubin.total [Mass/volume ] in Serum or PlasmaOrdered By: Lashell Villar on 09-09-2023 Bilirubin [Mass/Vol] 0.5 mg/dL Normal 0.3-1.0 [facility] Comment on above: Performed By: #### E SR, CMP, B12, CBC, MG #### [address] Calcium [Mass/volume] in Ser um or PlasmaOrdered By: Lashell Villar on 09-09-2023 Calcium [Mass/Vol] 9.6 mg/dL Normal 8.6-10.3 [facility] Comment on above: Performed By: #### E SR, CMP, B12, CBC, MG #### [address] Carbon dioxide, total [Moles /volume] in Serum or PlasmaOrdered By: Lashell Villar on 09-09-2023 CO2 [Moles/Vol] 25.0 mmol/L Normal 21.0-31.0 [facility] Comment on above: Performed By: #### E SR, CMP, B12, CBC, MG #### [address] Chloride [Moles/volume] in S jessica or PlasmaOrdered By: Lashell Villar on 09-09-2023 Chloride [Moles/Vol] 107 mmol/L Normal 98-107 [facility] Comment on above: Performed By: #### E SR, CMP, B12, CBC, MG #### [address] Complete Blood Count Auto Di ffon 09-09-2023 Mean Corpuscular HGB Conc 32.7 g/dL Normal 32.5-35.6 [facility] Comment on above: Performed By: #### E SR, CMP, B12, CBC, MG #### [address] NRBC% 0.0 /100{WBC} Normal 0-0.5 [facility] Comment on above: Performed By: #### E SR, CMP, B12, CBC, MG #### [address] Comprehensive Metabolic Pane chong 09-09-2023 Albumin [Mass/Vol] 3.9 g/dL Normal 3.5-5.7 [facility] Comment on above: Performed By: #### E SR, CMP, B12, CBC, MG #### [address] GFR/1.73 sq M.predicted MDRD (S/P/Bld) [Vol rate/Area] mL/min/{1.73_m2} Normal [facility] Comment on above: Performed By: #### E SR, CMP, B12, CBC, MG #### [address] Creatinine [Mass/volume] in Serum or PlasmaOrdered By: Lashell Villar on 09-09-2023 Creatinine [Mass/Vol] 0.84 mg/dL Normal 0.70-1.30 [facility] Comment on above: Performed By: #### E SR, CMP, B12, CBC, MG #### [address] Erythrocyte Sedimentation Ra basilio 09-09-2023 ESR (Bld) [Velocity] 51 mm/h High 0-19 [facility] Comment on above: Result Comment: PERF ORMED BY: [place] [address] PATHOLOGIST FUND RAISER CRISTINA MARINELLI M.D. Performed By: #### E SR, CMP, B12, CBC, MG #### [address] Erythrocyte distribution wid th [Ratio] by Automated countOrdered By: Lashell Villar on 09-09-2023 Erythrocyte distribution width (RBC) [Ratio] 16.6 % High 12.0-14.8 [facility] Comment on above: Performed By: #### E SR, CMP, B12, CBC, MG #### [address] Erythrocyte sedimentation ra te by Photometric methodOrdered By: Lashell Villar on 09-09-2023 ESR Photometric method (Bld) [Velocity] 51 mm/hr High 0-19 [facility] Erythrocytes [#/volume] in B lood by Automated countOrdered By: Lashell Villar on 09-09-2023 RBC (Bld) [#/Vol] 4.78 10*6/uL Normal 3.90-5.60 [facility] Comment on above: Performed By: #### E SR, CMP, B12, CBC, MG #### [facility] [address] Glucose [Mass/volume] in Ser um or PlasmaOrdered By: Lashell Villar on 09-09-2023 Glucose [Mass/Vol] 99 mg/dL Normal 70-100 [facility] Comment on above: ADA recommended refe rence rangeRandom Glucose Reference Range is dependent on time and content of last meal. Glucose of more than 200 mg/dL in a nonstressed, ambulatory subject supports the diagnosis of Diabetes Mellitus. Result Comment: [place] om Glucose Reference Range is dependent on time and content of last meal. Glucose of more than 200 mg/dL in a nonstressed, ambulatory subject supports the diagnosis of Diabetes Mellitus. ADA recommended reference range Performed By: #### E SR, CMP, B12, CBC, MG #### [address] Hematocrit [Volume Fraction] of Blood by Automated countOrdered By: Lashell Villar on 09-09-2023 Hematocrit (Bld) [Volume fraction] 44.0 % Normal 38.8-50.0 [facility] Comment on above: Performed By: #### E SR, CMP, B12, CBC, MG #### [address] Hemoglobin [Mass/volume] in BloodOrdered By: Lashell Villar on 09-09-2023 Hemoglobin (Bld) [Mass/Vol] 14.4 g/dL Normal 13.0-17.0 [facility] Comment on above: Performed By: #### E SR, CMP, B12, CBC, MG #### [address] Leukocytes [#/volume] correc constance for nucleated erythrocytes in Blood by Automated counOrdered By: Lashell Villar on 09-09-2023 WBC corrected for nucl RBC Auto (Bld) [#/Vol] 4.7 10*3/uL 4.1-10.5 [facility] Leukocytes [#/volume] in Blo od by Automated countOrdered By: Lashell Villar on 09-09-2023 WBC (Bld) [#/Vol] 4.7 10*3/uL Normal 4.1-10.5 [facility] Comment on above: Performed By: #### E SR, CMP, B12, CBC, MG #### [address] Lymphocytes [#/volume] in Bl ood by Automated countOrdered By: Lashell Villar on 09-09-2023 Lymphocytes (Bld) [#/Vol] 1.2 10*3/uL Normal 1.00-4.8 [facility] Comment on above: Performed By: #### E SR, CMP, B12, CBC, MG #### [address] Lymphocytes/100 leukocytes i n Blood by Automated countOrdered By: Lashell Villar on 09-09-2023 Lymphocytes/100 WBC (Bld) 25.4 % Normal . [facility] Comment on above: Performed By: #### E SR, CMP, B12, CBC, MG #### [address] MCH [Entitic mass] by Automa constance countOrdered By: Lashell Villar on 09-09-2023 MCH (RBC) [Entitic mass] 30.1 pg Normal 27.5-35.2 [facility] Comment on above: Performed By: #### E SR, CMP, B12, CBC, MG #### [address] MCHC Auto (RBC) [Mass/Vol]Or dered By: Lashell Villar on 09-09-2023 MCHC (RBC) [Mass/Vol] 32.7 g/dL 32.5-35.6 [facility] MCV [Entitic volume] by Auto mated countOrdered By: Lashell Villar on 09-09-2023 MCV (RBC) [Entitic vol] 92.0 fL Normal 83.5-101 [facility] Comment on above: Performed By: #### E SR, CMP, B12, CBC, MG #### [address] [address] [place] Magnesium [Mass/volume] in S jessica or PlasmaOrdered By: Lashell Villar on 09-09-2023 Magnesium [Mass/Vol] 1.9 mg/dL Normal 1.9-2.7 [facility] Comment on above: Performed By: #### E SR, CMP, B12, CBC, MG #### [facility] [address] [place] [address] Neutrophils [#/volume] in Bl ood by Automated countOrdered By: Lashell Villar on 09-09-2023 Neutrophils (Bld) [#/Vol] 2.6 10*3/uL Normal 1.8-7.7 [facility] Comment on above: Performed By: #### E SR, CMP, B12, CBC, MG #### [facility] [address] [place] [address] No Panel InformationOrdered By: Lashell Villar on 09-09-2023 Estimated GFR (CKD-EPI) > 60.0 mL/Min [facility] Creatinine Clearance (Chem N/A [facility] Nucleated erythrocytes [Pres ence] in Blood by Automated countOrdered By: Lashell Villar on 09-09-2023 Nucleated RBC Auto Ql (Bld) 0.0 /100{WBC} 0-0.5 [facility] Platelet mean volume [Entiti c volume] in Blood by Automated countOrdered By: Lashell Villar on 09-09-2023 Platelet mean volume (Bld) [Entitic vol] 9.0 fL Normal 6.6-10.1 [facility] Comment on above: Performed By: #### E SR, CMP, B12, CBC, MG #### [facility] [address] [place] [address] Platelets [#/volume] in Bloo d by Automated countOrdered By: Lashell Villar on 09-09-2023 Platelets (Bld) [#/Vol] 180 10*3/uL Normal 150-450 [facility] Comment on above: Performed By: #### E SR, CMP, B12, CBC, MG #### [facility] [address] Potassium [Moles/volume] in Serum or PlasmaOrdered By: Lashell Villar on 09-09-2023 Potassium [Moles/Vol] 3.8 mmol/L Normal 3.5-5.1 [facility] Comment on above: Performed By: #### E SR, CMP, B12, CBC, MG #### [address] Protein [Mass/volume] in Ser um or PlasmaOrdered By: Lashell Villar on 09-09-2023 Protein [Mass/Vol] 7.2 g/dL Normal 6.4-8.9 [facility] Comment on above: Performed By: #### E SR, CMP, B12, CBC, MG #### [address] Serum globulin measurement b y calculation (mass/volume)Ordered By: Lashell Villar on 09-09-2023 Globulin (S) [Mass/Vol] 3.3 g/dL Normal [facility] Comment on above: Performed By: #### E SR, CMP, B12, CBC, MG #### [address] Serum or plasma albumin/glob ulin mass ratioOrdered By: Lashell Villar on 09-09-2023 Albumin/Globulin [Mass ratio] 1.2 {ratio} Normal [facility] Comment on above: Performed By: #### E SR, CMP, B12, CBC, MG #### [address] Serum or plasma anion gap de terminationOrdered By: Lashell Villar on 09-09-2023 Anion gap [Moles/Vol] 6.8 mmol/L Normal 6.0-15.0 [facility] Comment on above: Performed By: #### E SR, CMP, B12, CBC, MG #### [place] [address] [place] Sodium [Moles/volume] in Ser um or PlasmaOrdered By: Lashell Villar on 09-09-2023 Sodium [Moles/Vol] 135 mmol/L Low 136-145 [facility] Comment on above: Performed By: #### E SR, CMP, B12, CBC, MG #### [address] Urea nitrogen [Mass/volume] in Serum or PlasmaOrdered By: Lashell Villar on 09-09-2023 Urea nitrogen [Mass/Vol] 14 mg/dL Normal 7-25 [facility] Comment on above: Performed By: #### E SR, CMP, B12, CBC, MG #### [address] Vitamin B12 ser/plasOrdered By: Lashell Villar on 09-09-2023 Cobalamin (Vitamin B12) [Mass/Vol] 939 pg/mL High 180-914 [facility] Comment on above: Result Comment: PERF ORMED BY: [place] [address] PATHOLOGIST FUND RAISER CRISTINA MARINELLI M.D. Performed By: #### E SR, CMP, B12, CBC, MG #### [address] Alanine aminotransferase [En zymatic activity/volume] in Serum or PlasmaOrdered By: Lashell Villar on 07-15-2023 ALT [Catalytic activity/Vol] 17 U/L Normal 7-52 [facility] Comment on above: Performed By: #### E SR, CMP, B12, CBC, MG #### [address] Albumin [Mass/volume] in Ser um or Plasma by Bromocresol green (BCG) dye binding methoOrdered By: Lashell Villar on 07-15-2023 Albumin BCG dye [Mass/Vol] 3.9 g/dL 3.5-5.7 [facility] Alkaline phosphatase [Enzyma tic activity/volume] in Serum or PlasmaOrdered By: Lashell Villar on 07-15-2023 ALP [Catalytic activity/Vol] 74 U/L Normal 34-104 [facility] Comment on above: Performed By: #### E SR, CMP, B12, CBC, MG #### [address] Aspartate aminotransferase [ Enzymatic activity/volume] in Serum or PlasmaOrdered By: Lashell Villar on 07-15-2023 AST [Catalytic activity/Vol] 21 U/L Normal 13-39 [facility] Comment on above: Performed By: #### E SR, CMP, B12, CBC, MG #### [address] Automated basophil %Ordered By: Lashell Villar on 07-15-2023 Basophils/100 WBC (Bld) 0.4 % Normal . [facility] Comment on above: Performed By: #### E SR, CMP, B12, CBC, MG #### [address] Automated basophil countOrde red By: Lashell Villar on 07-15-2023 Basophils (Bld) [#/Vol] 0.0 10*3/uL Normal 0.0-0.2 [facility] Comment on above: Performed By: #### E SR, CMP, B12, CBC, MG #### [address] Automated blood monocyte cou ntOrdered By: Lashell Villar on 07-15-2023 Monocytes (Bld) [#/Vol] 0.7 10*3/uL Normal 0.0-0.8 [facility] Comment on above: Performed By: #### E SR, CMP, B12, CBC, MG #### [address] Automated eosinophil %Ordere d By: Lashell Villar on 07-15-2023 Eosinophils/100 WBC (Bld) 5.5 % Normal . [facility] Comment on above: Performed By: #### E SR, CMP, B12, CBC, MG #### [address] Automated eosinophil countOr dered By: Lashell Villar on 07-15-2023 Eosinophils (Bld) [#/Vol] 0.2 10*3/uL Normal 0.0-0.45 [facility] Comment on above: Performed By: #### E SR, CMP, B12, CBC, MG #### [facility] [address] Automated monocyte %Ordered By: Lashell Villar on 07-15-2023 Monocytes/100 WBC (Bld) 16.2 % Normal . [facility] Comment on above: Performed By: #### E SR, CMP, B12, CBC, MG #### [facility] [address] Automated neutrophil %Ordere d By: Lashell Villar on 07-15-2023 Neutrophils/100 WBC (Bld) 50.2 % Normal . [facility] Comment on above: Performed By: #### E SR, CMP, B12, CBC, MG #### [address] Bilirubin.total [Mass/volume ] in Serum or PlasmaOrdered By: Lashell Villar on 07-15-2023 Bilirubin [Mass/Vol] 0.5 mg/dL Normal 0.3-1.0 [facility] Comment on above: Performed By: #### E SR, CMP, B12, CBC, MG #### [address] Calcium [Mass/volume] in Ser um or PlasmaOrdered By: Lashell Villar on 07-15-2023 Calcium [Mass/Vol] 10.0 mg/dL Normal 8.6-10.3 [facility] Comment on above: Performed By: #### E SR, CMP, B12, CBC, MG #### [address] Carbon dioxide, total [Moles /volume] in Serum or PlasmaOrdered By: Lashell Villar on 07-15-2023 CO2 [Moles/Vol] 25.2 mmol/L Normal 21.0-31.0 [facility] Comment on above: Performed By: #### E SR, CMP, B12, CBC, MG #### [address] Chloride [Moles/volume] in S jessica or PlasmaOrdered By: Lashell Villar on 07-15-2023 Chloride [Moles/Vol] 106 mmol/L Normal 98-107 [facility] Comment on above: Performed By: #### E SR, CMP, B12, CBC, MG #### [address] Complete Blood Count Auto Di ffon 07-15-2023 Mean Corpuscular HGB Conc 32.6 g/dL Normal 32.5-35.6 [facility] Comment on above: Performed By: #### E SR, CMP, B12, CBC, MG #### [address] NRBC% 0.2 /100{WBC} Normal 0-0.5 [facility] Comment on above: Performed By: #### E SR, CMP, B12, CBC, MG #### [address] Comprehensive Metabolic Pane chong 07-15-2023 Albumin [Mass/Vol] 3.9 g/dL Normal 3.5-5.7 [facility] Comment on above: Performed By: #### E SR, CMP, B12, CBC, MG #### [address] GFR/1.73 sq M.predicted MDRD (S/P/Bld) [Vol rate/Area] mL/min/{1.73_m2} Normal [facility] Comment on above: Performed By: #### E SR, CMP, B12, CBC, MG #### [address] Creatinine [Mass/volume] in Serum or PlasmaOrdered By: Lashell Villar on 07-15-2023 Creatinine [Mass/Vol] 0.76 mg/dL Normal 0.70-1.30 [facility] Comment on above: Performed By: #### E SR, CMP, B12, CBC, MG #### [facility] [address] Erythrocyte Sedimentation Ra basilio 07-15-2023 ESR (Bld) [Velocity] 44 mm/h High 0-19 [facility] Comment on above: Result Comment: PERF ORMED BY: [place] [address] PATHOLOGIST FUND RAISER CRISTINA MARINELLI M.D. Performed By: #### E SR, CMP, B12, CBC, MG #### [facility] [address] Erythrocyte distribution wid th [Ratio] by Automated countOrdered By: Lashell Villar on 07-15-2023 Erythrocyte distribution width (RBC) [Ratio] 16.9 % High 12.0-14.8 [facility] Comment on above: Performed By: #### E SR, CMP, B12, CBC, MG #### [address] Erythrocyte sedimentation ra te by Photometric methodOrdered By: Lashell Villar on 07-15-2023 ESR Photometric method (Bld) [Velocity] 44 mm/hr High 0-19 [facility] Erythrocytes [#/volume] in B lood by Automated countOrdered By: Lashell Villar on 07-15-2023 RBC (Bld) [#/Vol] 4.58 10*6/uL Normal 3.90-5.60 [facility] Comment on above: Performed By: #### E SR, CMP, B12, CBC, MG #### [address] Glucose [Mass/volume] in Ser um or PlasmaOrdered By: Lashell Villar on 07-15-2023 Glucose [Mass/Vol] 98 mg/dL Normal 70-100 [facility] Comment on above: ADA recommended refe rence rangeRandom Glucose Reference Range is dependent on time and content of last meal. Glucose of more than 200 mg/dL in a nonstressed, ambulatory subject supports the diagnosis of Diabetes Mellitus. Result Comment: [facility] [place] Glucose Reference Range is dependent on time and content of last meal. Glucose of more than 200 mg/dL in a nonstressed, ambulatory subject supports the diagnosis of Diabetes Mellitus. ADA recommended reference range Performed By: #### E SR, CMP, B12, CBC, MG #### [address] Hematocrit [Volume Fraction] of Blood by Automated countOrdered By: Lashell Villar on 07-15-2023 Hematocrit (Bld) [Volume fraction] 42.3 % Normal 38.8-50.0 [facility] Comment on above: Performed By: #### E SR, CMP, B12, CBC, MG #### [address] Hemoglobin [Mass/volume] in BloodOrdered By: Lashell Villar on 07-15-2023 Hemoglobin (Bld) [Mass/Vol] 13.8 g/dL Normal 13.0-17.0 [facility] Comment on above: Performed By: #### E SR, CMP, B12, CBC, MG #### [address] Leukocytes [#/volume] correc constance for nucleated erythrocytes in Blood by Automated counOrdered By: Lashell Villar on 07-15-2023 WBC corrected for nucl RBC Auto (Bld) [#/Vol] 4.4 10*3/uL 4.1-10.5 [facility] Leukocytes [#/volume] in Blo od by Automated countOrdered By: Lashell Villar on 07-15-2023 WBC (Bld) [#/Vol] 4.4 10*3/uL Normal 4.1-10.5 [facility] Comment on above: Performed By: #### E SR, CMP, B12, CBC, MG #### [address] Lymphocytes [#/volume] in Bl ood by Automated countOrdered By: Lashell Villar on 07-15-2023 Lymphocytes (Bld) [#/Vol] 1.2 10*3/uL Normal 1.00-4.8 [facility] Comment on above: Performed By: #### E SR, CMP, B12, CBC, MG #### [address] Lymphocytes/100 leukocytes i n Blood by Automated countOrdered By: Lashell Villar on 07-15-2023 Lymphocytes/100 WBC (Bld) 27.7 % Normal . [facility] Comment on above: Performed By: #### E SR, CMP, B12, CBC, MG #### [address] MCH [Entitic mass] by Automa constance countOrdered By: Lashell Villar on 07-15-2023 MCH (RBC) [Entitic mass] 30.1 pg Normal 27.5-35.2 [facility] Comment on above: Performed By: #### E SR, CMP, B12, CBC, MG #### [address] MCHC Auto (RBC) [Mass/Vol]Or dered By: Lahsell Villar on 07-15-2023 MCHC (RBC) [Mass/Vol] 32.6 g/dL 32.5-35.6 [facility] MCV [Entitic volume] by Auto mated countOrdered By: Lashell Villar on 07-15-2023 MCV (RBC) [Entitic vol] 92.3 fL Normal 83.5-101 [facility] Comment on above: Performed By: #### E SR, CMP, B12, CBC, MG #### [address] Magnesium [Mass/volume] in S jessica or PlasmaOrdered By: Lashell Villar on 07-15-2023 Magnesium [Mass/Vol] 1.8 mg/dL Low 1.9-2.7 [facility] Comment on above: Performed By: #### E SR, CMP, B12, CBC, MG #### [address] Neutrophils [#/volume] in Bl ood by Automated countOrdered By: Lashell Villar on 07-15-2023 Neutrophils (Bld) [#/Vol] 2.2 10*3/uL Normal 1.8-7.7 [facility] Comment on above: Performed By: #### E SR, CMP, B12, CBC, MG #### [address] No Panel InformationOrdered By: Lashell Villar on 07-15-2023 Estimated GFR (CKD-EPI) > 60.0 mL/Min [facility] Creatinine Clearance (Chem N/A [facility] Nucleated erythrocytes [Pres ence] in Blood by Automated countOrdered By: Lashell Villar on 07-15-2023 Nucleated RBC Auto Ql (Bld) 0.2 /100{WBC} 0-0.5 [facility] Platelet mean volume [Entiti c volume] in Blood by Automated countOrdered By: Lashell Villar on 07-15-2023 Platelet mean volume (Bld) [Entitic vol] 9.5 fL Normal 6.6-10.1 [facility] Comment on above: Performed By: #### E SR, CMP, B12, CBC, MG #### [address] Platelets [#/volume] in Bloo d by Automated countOrdered By: Lashell Villar on 07-15-2023 Platelets (Bld) [#/Vol] 160 10*3/uL Normal 150-450 [facility] Comment on above: Performed By: #### E SR, CMP, B12, CBC, MG #### [place] [address] [place] Potassium [Moles/volume] in Serum or PlasmaOrdered By: Lashell Villar on 07-15-2023 Potassium [Moles/Vol] 4.1 mmol/L Normal 3.5-5.1 [facility] Comment on above: Performed By: #### E SR, CMP, B12, CBC, MG #### [place] [address] [place] Protein [Mass/volume] in Ser um or PlasmaOrdered By: Lashell Villar on 07-15-2023 Protein [Mass/Vol] 7.1 g/dL Normal 6.4-8.9 [facility] Comment on above: Performed By: #### E SR, CMP, B12, CBC, MG #### [facility] [address] Serum globulin measurement b y calculation (mass/volume)Ordered By: Lashell Villar on 07-15-2023 Globulin (S) [Mass/Vol] 3.2 g/dL Normal [facility] Comment on above: Performed By: #### E SR, CMP, B12, CBC, MG #### [address] Serum or plasma albumin/glob ulin mass ratioOrdered By: Lashell Villar on 07-15-2023 Albumin/Globulin [Mass ratio] 1.2 {ratio} Normal [facility] Comment on above: Performed By: #### E SR, CMP, B12, CBC, MG #### [address] Serum or plasma anion gap de terminationOrdered By: Lashell Villar on 07-15-2023 Anion gap [Moles/Vol] 11.9 mmol/L Normal 6.0-15.0 [facility] Comment on above: Performed By: #### E SR, CMP, B12, CBC, MG #### [place] [address] [place] Sodium [Moles/volume] in Ser um or PlasmaOrdered By: Lashell Villar on 07-15-2023 Sodium [Moles/Vol] 139 mmol/L Normal 136-145 [facility] Comment on above: Performed By: #### E SR, CMP, B12, CBC, MG #### [place] [address] [place] Urea nitrogen [Mass/volume] in Serum or PlasmaOrdered By: Lashell Villar on 07-15-2023 Urea nitrogen [Mass/Vol] 14 mg/dL Normal 7-25 [facility] Comment on above: Performed By: #### E SR, CMP, B12, CBC, MG #### [facility] [address] Vitamin B12 ser/plasOrdered By: Lashell Villar on 07-15-2023 Cobalamin (Vitamin B12) [Mass/Vol] 866 pg/mL Normal 180-914 [facility] Comment on above: Result Comment: PERF ORMED BY: [place] [address] PATHOLOGIST FUND RAISER CRISTINA MARINELLI M.D. Performed By: #### E SR, CMP, B12, CBC, MG #### [facility] [address] Bacteria identified Aer cx N om (Unsp spec)Ordered By: Evangelista Garsia on 06-30-2023 Superficial Wound Culture Staphylococcus aureus Abnormal [facility] Aspartate aminotransferase [ Enzymatic activity/volume] in Serum or PlasmaOrdered By: Clarke Bertrand on 03-25-2023 AST [Catalytic activity/Vol] 20 U/L 13-39 [facility] Potassium [Moles/volume] in Serum or PlasmaOrdered By: Clarke Bertrand on 03-25-2023 Potassium [Moles/Vol] 4.0 mmol/L 3.5-5.1 [facility] Alanine aminotransferase [En zymatic activity/volume] in Serum or PlasmaOrdered By: Lashell Villar on 01-28-2023 ALT [Catalytic activity/Vol] 22 U/L 7-52 [facility] Albumin [Mass/volume] in Ser um or Plasma by Bromocresol green (BCG) dye binding methoOrdered By: Lashell Villar on 01-28-2023 Albumin BCG dye [Mass/Vol] 4.2 g/dL 3.5-5.7 [facility] Alkaline phosphatase [Enzyma tic activity/volume] in Serum or PlasmaOrdered By: Lashell Vlilar on 01-28-2023 ALP [Catalytic activity/Vol] 63 U/L 34-104 [facility] Aspartate aminotransferase [ Enzymatic activity/volume] in Serum or PlasmaOrdered By: Lashell Villar on 01-28-2023 AST [Catalytic activity/Vol] See comment 13-39 [facility] Comment on above: Specimen hemolyzed, redraw requested Basophils Auto (Bld) [#/Vol] Ordered By: Lashell Villar on 01-28-2023 Basophils (Bld) [#/Vol] 0.0 10*3/uL 0.0-0.2 [facility] Basophils/100 WBC Auto (Bld) Ordered By: Lashell Villar on 01-28-2023 Basophils/100 WBC (Bld) 0.6 % . [facility] Bilirubin.total [Mass/volume ] in Serum or PlasmaOrdered By: Lashell Villar on 01-28-2023 Bilirubin [Mass/Vol] 0.6 mg/dL 0.3-1.0 [facility] Calcium [Mass/volume] in Ser um or PlasmaOrdered By: Lashell Villar on 01-28-2023 Calcium [Mass/Vol] 9.8 mg/dL 8.6-10.3 [facility] Carbon dioxide, total [Moles /volume] in Serum or PlasmaOrdered By: Lashell Villar on 01-28-2023 CO2 [Moles/Vol] 28.6 mmol/L 21.0-31.0 [facility] Chloride [Moles/volume] in S jessica or PlasmaOrdered By: Lashell Villar on 01-28-2023 Chloride [Moles/Vol] 105 mmol/L 98-107 [facility] Creatinine [Mass/volume] in Serum or PlasmaOrdered By: Lashell Villar on 01-28-2023 Creatinine [Mass/Vol] 0.80 mg/dL 0.70-1.30 [facility] Eosinophils Auto (Bld) [#/Vo l]Ordered By: Lashell Villar on 01-28-2023 Eosinophils (Bld) [#/Vol] 0.2 10*3/uL 0.0-0.45 [facility] Eosinophils/100 WBC Auto (Bl d)Ordered By: Lashell Villar on 01-28-2023 Eosinophils/100 WBC (Bld) 5.0 % . [facility] Erythrocyte distribution wid th Auto (RBC) [Ratio]Ordered By: Lashell Villar on 01-28-2023 Erythrocyte distribution width (RBC) [Ratio] 16.7 % 12.0-14.8 [facility] Erythrocyte sedimentation ra te by Photometric methodOrdered By: Lashell Villar on 01-28-2023 ESR Photometric method (Bld) [Velocity] 34 mm/hr 0-19 [facility] Globulin Calc (S) [Mass/Vol] Ordered By: Lashell Villar on 01-28-2023 Globulin (S) [Mass/Vol] 2.8 g/dL [facility] Glucose [Mass/volume] in Ser um or PlasmaOrdered By: Lashell Villar on 01-28-2023 Glucose [Mass/Vol] 86 mg/dL 70-100 [facility] Comment on above: ADA recommended refe rence rangeRandom Glucose Reference Range is dependent on time and content of last meal. Glucose of more than 200 mg/dL in a nonstressed, ambulatory subject supports the diagnosis of Diabetes Mellitus. Hematocrit Auto (Bld) [Volum e fraction]Ordered By: Lashell Villar on 01-28-2023 Hematocrit (Bld) [Volume fraction] 42.5 % 38.8-50.0 [facility] Hemoglobin [Mass/volume] in BloodOrdered By: Lashell Villar on 01-28-2023 Hemoglobin (Bld) [Mass/Vol] 14.1 g/dL 13.0-17.0 [facility] Leukocytes [#/volume] correc constance for nucleated erythrocytes in Blood by Automated counOrdered By: Lahsell Villar on 01-28-2023 WBC corrected for nucl RBC Auto (Bld) [#/Vol] 4.5 10*3/uL 4.1-10.5 [facility] Lymphocytes Auto (Bld) [#/Vo l]Ordered By: Lashell Villar on 01-28-2023 Lymphocytes (Bld) [#/Vol] 1.0 10*3/uL 1.00-4.8 [facility] Lymphocytes/100 WBC Auto (Bl d)Ordered By: Lashell Villar on 01-28-2023 Lymphocytes/100 WBC (Bld) 22.6 % . [facility] MCH Auto (RBC) [Entitic mass ]Ordered By: Lashell Villar on 01-28-2023 MCH (RBC) [Entitic mass] 31.1 pg 27.5-35.2 [facility] MCHC Auto (RBC) [Mass/Vol]Or dered By: Lashell Villar on 01-28-2023 MCHC (RBC) [Mass/Vol] 33.3 g/dL 32.5-35.6 [facility] MCV Auto (RBC) [Entitic vol] Ordered By: Lashell Villar on 01-28-2023 MCV (RBC) [Entitic vol] 93.3 fL 83.5-101 [facility] Monocytes Auto (Bld) [#/Vol] Ordered By: Lashell Villar on 01-28-2023 Monocytes (Bld) [#/Vol] 0.8 10*3/uL 0.0-0.8 [facility] Monocytes/100 WBC Auto (Bld) Ordered By: Lashlel Villar on 01-28-2023 Monocytes/100 WBC (Bld) 16.5 % . [facility] Neutrophils Auto (Bld) [#/Vo l]Ordered By: Lashell Villar on 01-28-2023 Neutrophils (Bld) [#/Vol] 2.5 10*3/uL 1.8-7.7 [facility] Neutrophils/100 WBC Auto (Bl d)Ordered By: Lashell Villar on 01-28-2023 Neutrophils/100 WBC (Bld) 55.3 % . [facility] No Panel InformationOrdered By: Lashell Villar on 01-28-2023 Estimated GFR (CKD-EPI) > 60.0 mL/Min [facility] Creatinine Clearance (Chem N/A [facility] Nucleated erythrocytes [Pres ence] in Blood by Automated countOrdered By: Lashell Villar on 01-28-2023 Nucleated RBC Auto Ql (Bld) 0.3 /100{WBC} 0-0.5 [facility] Platelet mean volume Auto (B ld) [Entitic vol]Ordered By: Lashell Villar on 01-28-2023 Platelet mean volume (Bld) [Entitic vol] 9.3 fL 6.6-10.1 [facility] Platelets Auto (Bld) [#/Vol] Ordered By: Lashell Villar on 01-28-2023 Platelets (Bld) [#/Vol] 162 10*3/uL 150-450 [facility] Potassium [Moles/volume] in Serum or PlasmaOrdered By: Lashell Villar on 01-28-2023 Potassium [Moles/Vol] See comment 3.5-5.1 [facility] Comment on above: Specimen hemolyzed, redraw requested Protein [Mass/volume] in Ser um or PlasmaOrdered By: Lashell Villar on 01-28-2023 Protein [Mass/Vol] 7.0 g/dL 6.4-8.9 [facility] RBC Auto (Bld) [#/Vol]Ordere d By: Lashell Villar on 01-28-2023 RBC (Bld) [#/Vol] 4.55 10*6/uL 3.90-5.60 [facility] [facility] [place] Serum or plasma albumin/glob ulin mass ratioOrdered By: Lashell Villar on 01-28-2023 Albumin/Globulin [Mass ratio] 1.5 {ratio} [facility] Serum or plasma anion gap de terminationOrdered By: Lashell Villar on 01-28-2023 Anion gap [Moles/Vol] TNP [facility] Comment on above: Test not performed Sodium [Moles/volume] in Ser um or PlasmaOrdered By: Lashell Villar on 01-28-2023 Sodium [Moles/Vol] 140 mmol/L 136-145 [facility] Urea nitrogen [Mass/volume] in Serum or PlasmaOrdered By: Lashell Villar on 01-28-2023 Urea nitrogen [Mass/Vol] 14 mg/dL 7-25 [facility] WBC Auto (Bld) [#/Vol]Ordere d By: Lashell Villar on 01-28-2023 WBC (Bld) [#/Vol] 4.5 10*3/uL 4.1-10.5 [facility] Alanine aminotransferase [En zymatic activity/volume] in Serum or PlasmaOrdered By: Clarke Bertrand on 12-03-2022 ALT [Catalytic activity/Vol] 20 U/L 7-52 [facility] Albumin [Mass/volume] in Ser um or Plasma by Bromocresol green (BCG) dye binding methoOrdered By: Clarke Bertrand on 12-03-2022 Albumin BCG dye [Mass/Vol] 4.0 g/dL 3.5-5.7 [facility] Alkaline phosphatase [Enzyma tic activity/volume] in Serum or PlasmaOrdered By: Clarke Bertrand on 12-03-2022 ALP [Catalytic activity/Vol] 73 U/L 34-104 [facility] Aspartate aminotransferase [ Enzymatic activity/volume] in Serum or PlasmaOrdered By: Clarke Bertrand on 12-03-2022 AST [Catalytic activity/Vol] 23 U/L 13-39 [facility] Basophils Auto (Bld) [#/Vol] Ordered By: Clarke Bertrand on 12-03-2022 Basophils (Bld) [#/Vol] 0.0 10*3/uL 0.0-0.2 [facility] Basophils/100 WBC Auto (Bld) Ordered By: Clarke Bertrand on 12-03-2022 Basophils/100 WBC (Bld) 0.5 % . [facility] Bilirubin.total [Mass/volume ] in Serum or PlasmaOrdered By: Clarke Bertrand on 12-03-2022 Bilirubin [Mass/Vol] 0.6 mg/dL 0.3-1.0 [facility] Calcium [Mass/volume] in Ser um or PlasmaOrdered By: Clarke Bertrand on 12-03-2022 Calcium [Mass/Vol] 9.5 mg/dL 8.6-10.3 [facility] Carbon dioxide, total [Moles /volume] in Serum or PlasmaOrdered By: Clarke Bertrand on 12-03-2022 CO2 [Moles/Vol] 26.5 mmol/L 21.0-31.0 [facility] Chloride [Moles/volume] in S jessica or PlasmaOrdered By: Clarke Bertrand on 12-03-2022 Chloride [Moles/Vol] 106 mmol/L 98-107 [facility] Creatinine [Mass/volume] in Serum or PlasmaOrdered By: Clarke Bertrand on 12-03-2022 Creatinine [Mass/Vol] 0.81 mg/dL 0.70-1.30 [facility] Eosinophils Auto (Bld) [#/Vo l]Ordered By: Clarke Bertrand on 12-03-2022 Eosinophils (Bld) [#/Vol] 0.2 10*3/uL 0.0-0.45 [facility] Eosinophils/100 WBC Auto (Bl d)Ordered By: Clarke Bertrand on 12-03-2022 Eosinophils/100 WBC (Bld) 5.0 % . [facility] Erythrocyte distribution wid th Auto (RBC) [Ratio]Ordered By: Clarke Bertrand on 12-03-2022 Erythrocyte distribution width (RBC) [Ratio] 16.8 % 12.0-14.8 [facility] Erythrocyte sedimentation ra te by Photometric methodOrdered By: Clarke Bertrand on 12-03-2022 ESR Photometric method (Bld) [Velocity] 47 mm/hr 0-19 [facility] Globulin Calc (S) [Mass/Vol] Ordered By: Clarke Bertrand on 12-03-2022 Globulin (S) [Mass/Vol] 3.0 g/dL [facility] Glucose [Mass/volume] in Ser um or PlasmaOrdered By: Clarke Bertrand on 12-03-2022 Glucose [Mass/Vol] 87 mg/dL 70-100 [facility] Comment on above: ADA recommended refe rence rangeRandom Glucose Reference Range is dependent on time and content of last meal. Glucose of more than 200 mg/dL in a nonstressed, ambulatory subject supports the diagnosis of Diabetes Mellitus. Hematocrit Auto (Bld) [Volum e fraction]Ordered By: Clarke Bertrand on 12-03-2022 Hematocrit (Bld) [Volume fraction] 42.5 % 38.8-50.0 [facility] Hemoglobin [Mass/volume] in BloodOrdered By: Clarke Bertrand on 12-03-2022 Hemoglobin (Bld) [Mass/Vol] 14.1 g/dL 13.0-17.0 [facility] Leukocytes [#/volume] correc constance for nucleated erythrocytes in Blood by Automated counOrdered By: Clarke Bertrand on 12-03-2022 WBC corrected for nucl RBC Auto (Bld) [#/Vol] 4.4 10*3/uL 4.1-10.5 [facility] Lymphocytes Auto (Bld) [#/Vo l]Ordered By: Clarke Bertrand on 12-03-2022 Lymphocytes (Bld) [#/Vol] 1.1 10*3/uL 1.00-4.8 [facility] Lymphocytes/100 WBC Auto (Bl d)Ordered By: Clarke Bertrand on 12-03-2022 Lymphocytes/100 WBC (Bld) 26.0 % . [facility] MCH Auto (RBC) [Entitic mass ]Ordered By: Clarke Bertrand on 12-03-2022 MCH (RBC) [Entitic mass] 31.2 pg 27.5-35.2 [facility] MCHC Auto (RBC) [Mass/Vol]Or dered By: Clarke Bertrand on 12-03-2022 MCHC (RBC) [Mass/Vol] 33.2 g/dL 32.5-35.6 [facility] MCV Auto (RBC) [Entitic vol] Ordered By: Clarke Bertrand on 12-03-2022 MCV (RBC) [Entitic vol] 93.9 fL 83.5-101 [facility] Monocytes Auto (Bld) [#/Vol] Ordered By: Clarke Bertrand on 12-03-2022 Monocytes (Bld) [#/Vol] 0.7 10*3/uL 0.0-0.8 [facility] Monocytes/100 WBC Auto (Bld) Ordered By: Clarke Bertrand on 12-03-2022 Monocytes/100 WBC (Bld) 16.5 % . [facility] Neutrophils Auto (Bld) [#/Vo l]Ordered By: Clarke Bertrand on 12-03-2022 Neutrophils (Bld) [#/Vol] 2.3 10*3/uL 1.8-7.7 [facility] Neutrophils/100 WBC Auto (Bl d)Ordered By: Clarke Bertrand on 12-03-2022 Neutrophils/100 WBC (Bld) 52.0 % . [facility] No Panel InformationOrdered By: Clarke Bertrand on 12-03-2022 Estimated GFR (CKD-EPI) > 60.0 mL/Min [facility] Creatinine Clearance (Chem N/A [facility] Nucleated erythrocytes [Pres ence] in Blood by Automated countOrdered By: Clarke Bertrand on 12-03-2022 Nucleated RBC Auto Ql (Bld) 0.2 /100{WBC} 0-0.5 [facility] Platelet adequacy [Presence] in Blood by Light microscopyOrdered By: Clarke Bertrand on 12-03-2022 Platelets LM Ql (Bld) Normal Normal [facility] Platelet mean volume Auto (B ld) [Entitic vol]Ordered By: Clarke Bertrand on 12-03-2022 Platelet mean volume (Bld) [Entitic vol] 9.6 fL 6.6-10.1 [facility] Platelet morphology finding [Identifier] in BloodOrdered By: Clarke Bertrand on 12-03-2022 Platelet morphology finding Nom (Bld) Normal Normal [facility] Platelets Auto (Bld) [#/Vol] Ordered By: Clarke Bertrand on 12-03-2022 Platelets (Bld) [#/Vol] 132 10*3/uL 150-450 [facility] Potassium [Moles/volume] in Serum or PlasmaOrdered By: Clarke Bertrand on 12-03-2022 Potassium [Moles/Vol] 4.0 mmol/L 3.5-5.1 [facility] Protein [Mass/volume] in Ser um or PlasmaOrdered By: Clarke Bertrand on 12-03-2022 Protein [Mass/Vol] 7.0 g/dL 6.4-8.9 [facility] RBC Auto (Bld) [#/Vol]Ordere d By: Clarke Bertrand on 12-03-2022 RBC (Bld) [#/Vol] 4.53 10*6/uL 3.90-5.60 [facility] [place] RBC morphologyOrdered By: Christopher Amadorow on 12-03-2022 RBC morphology finding Nom (Bld) Normal Normal [facility] Serum or plasma albumin/glob ulin mass ratioOrdered By: Clarke Elza on 12-03-2022 Albumin/Globulin [Mass ratio] 1.3 {ratio} [facility] Serum or plasma anion gap de terminationOrdered By: Clarkearabella Bertrand on 12-03-2022 Anion gap [Moles/Vol] 11.5 mmol/L 6.0-15.0 [facility] Sodium [Moles/volume] in Ser um or PlasmaOrdered By: Clarke Elza on 12-03-2022 Sodium [Moles/Vol] 140 mmol/L 136-145 [facility] Urea nitrogen [Mass/volume] in Serum or PlasmaOrdered By: Clarke Elza on 12-03-2022 Urea nitrogen [Mass/Vol] 11 mg/dL 7-25 [facility] WBC Auto (Bld) [#/Vol]Ordere d By: Clarke Elza on 12-03-2022 WBC (Bld) [#/Vol] 4.4 10*3/uL 4.1-10.5 [facility] CNOVon 11-24-2022 CNOV Office Visit (CAEPAV ) SHIRLEY HART ([id number]) 1940 M Date Time Provider Department 11/24/22 8:40 AM CYNTHIA OLIVER CAEPAV During your visit today, we recorded the following information about you: Pulse Blood pressure Weight Height 86/minute 120/86 89.4 kg 1.905 m Referring Provider: CYNTHIA OLIVER [[id number]] Allergies As of Date: 11/24/2022 (No Known Allergies) Date Reviewed: 11/24/2022 Reviewed by: Maria Victoria Kemp LPN - Fully Assessed Reason for Visit: Cardiology Follow Up [1732] Primary Visit Diagnosis:History of loop recorder [Z98.890] Prescriptions as of 11/24/2022 - Adalimumab (HUMIRA PEN) 40 mg/0.8 mL pnkt Inject subcutaneously. - amLODIPine (NORVASC) 5 mg tablet Take 5 mg by mouth once daily. - Cyanocobalamin (VITAMIN B-12) 1,000 mcg TbER Take 1 tablet by mouth once daily. - FOLIC ACID ORAL Take by mouth. - golimumab (SIMPONI ARIA INTRAVENOUS) Inject 2 mg intravenously every 8 weeks. 2 mg/kg iv every 8 weeks per protocol (no loading doses) = 180 mg (4 vials) - methotrexate 2.5 mg tablet Take by mouth one time only. - Omeprazole 40 mg capsule Take 40 mg by mouth once daily. Problem List As Of Date: 11/24/2022 (None) Encounter Status:Closed by CYNTHIA OLIVER on 11/24/22 Normal [facility] Alanine aminotransferase [En zymatic activity/volume] in Serum or PlasmaOrdered By: Lashell Villar on 10-08-2022 ALT [Catalytic activity/Vol] 24 U/L 7-52 [facility] Albumin [Mass/volume] in Ser um or Plasma by Bromocresol green (BCG) dye binding methoOrdered By: Lashell Villar on 10-08-2022 Albumin BCG dye [Mass/Vol] 4.2 g/dL 3.5-5.7 [facility] Alkaline phosphatase [Enzyma tic activity/volume] in Serum or PlasmaOrdered By: Lashell Villar on 10-08-2022 ALP [Catalytic activity/Vol] 69 U/L 34-104 [facility] Aspartate aminotransferase [ Enzymatic activity/volume] in Serum or PlasmaOrdered By: Lashell Villar on 10-08-2022 AST [Catalytic activity/Vol] 32 U/L 13-39 [facility] Basophils Auto (Bld) [#/Vol] Ordered By: Lashell Villar on 10-08-2022 Basophils (Bld) [#/Vol] 0.0 10*3/uL 0.0-0.2 [facility] Basophils/100 WBC Auto (Bld) Ordered By: Lashell Villar on 10-08-2022 Basophils/100 WBC (Bld) 0.6 % . [facility] Bilirubin.total [Mass/volume ] in Serum or PlasmaOrdered By: Lashell Villar on 10-08-2022 Bilirubin [Mass/Vol] 0.6 mg/dL 0.3-1.0 [facility] Calcium [Mass/volume] in Ser um or PlasmaOrdered By: Lashell Villar on 10-08-2022 Calcium [Mass/Vol] 10.0 mg/dL 8.6-10.3 [facility] Carbon dioxide, total [Moles /volume] in Serum or PlasmaOrdered By: Lashell Villar on 10-08-2022 CO2 [Moles/Vol] 27.6 mmol/L 21.0-31.0 [facility] Chloride [Moles/volume] in S jessica or PlasmaOrdered By: Lashell Villar on 10-08-2022 Chloride [Moles/Vol] 103 mmol/L 98-107 [facility] Creatinine [Mass/volume] in Serum or PlasmaOrdered By: Lashell Villar on 10-08-2022 Creatinine [Mass/Vol] 0.79 mg/dL 0.70-1.30 [facility] Eosinophils Auto (Bld) [#/Vo l]Ordered By: Lashell Villar on 10-08-2022 Eosinophils (Bld) [#/Vol] 0.2 10*3/uL 0.0-0.45 [facility] Eosinophils/100 WBC Auto (Bl d)Ordered By: Lashell Villar on 10-08-2022 Eosinophils/100 WBC (Bld) 4.5 % . [facility] Erythrocyte distribution wid th Auto (RBC) [Ratio]Ordered By: Lashell Villar on 10-08-2022 Erythrocyte distribution width (RBC) [Ratio] 16.8 % 12.0-14.8 [facility] Erythrocyte sedimentation ra te by Photometric methodOrdered By: Lashell Villar on 10-08-2022 ESR Photometric method (Bld) [Velocity] 36 mm/hr 0-19 [facility] Globulin Calc (S) [Mass/Vol] Ordered By: Lashell Villar on 10-08-2022 Globulin (S) [Mass/Vol] 3.3 g/dL [facility] Glucose [Mass/volume] in Ser um or PlasmaOrdered By: Lashell Villar on 10-08-2022 Glucose [Mass/Vol] 87 mg/dL 70-100 [facility] Comment on above: ADA recommended refe rence rangeRandom Glucose Reference Range is dependent on time and content of last meal. Glucose of more than 200 mg/dL in a nonstressed, ambulatory subject supports the diagnosis of Diabetes Mellitus. Hematocrit Auto (Bld) [Volum e fraction]Ordered By: Lashell Villar on 10-08-2022 Hematocrit (Bld) [Volume fraction] 42.1 % 38.8-50.0 [facility] Hemoglobin [Mass/volume] in BloodOrdered By: Lashell Villar on 10-08-2022 Hemoglobin (Bld) [Mass/Vol] 14.0 g/dL 13.0-17.0 [facility] Leukocytes [#/volume] correc constance for nucleated erythrocytes in Blood by Automated counOrdered By: Lashell Villar on 10-08-2022 WBC corrected for nucl RBC Auto (Bld) [#/Vol] 4.7 10*3/uL 4.1-10.5 [facility] Lymphocytes Auto (Bld) [#/Vo l]Ordered By: Lashell Villar on 10-08-2022 Lymphocytes (Bld) [#/Vol] 1.2 10*3/uL 1.00-4.8 [facility] Lymphocytes/100 WBC Auto (Bl d)Ordered By: Lashell Villar on 10-08-2022 Lymphocytes/100 WBC (Bld) 24.4 % . [facility] MCH Auto (RBC) [Entitic mass ]Ordered By: Lashell Villar on 10-08-2022 MCH (RBC) [Entitic mass] 31.4 pg 27.5-35.2 [facility] MCHC Auto (RBC) [Mass/Vol]Or dered By: Lashell Villar on 10-08-2022 MCHC (RBC) [Mass/Vol] 33.3 g/dL 32.5-35.6 [facility] MCV Auto (RBC) [Entitic vol] Ordered By: Lashell Villar on 10-08-2022 MCV (RBC) [Entitic vol] 94.1 fL 83.5-101 [facility] Monocytes Auto (Bld) [#/Vol] Ordered By: Lashell Villar on 10-08-2022 Monocytes (Bld) [#/Vol] 0.7 10*3/uL 0.0-0.8 [facility] Monocytes/100 WBC Auto (Bld) Ordered By: Lashell Villar on 10-08-2022 Monocytes/100 WBC (Bld) 14.9 % . [facility] Neutrophils Auto (Bld) [#/Vo l]Ordered By: Lashell Villar on 10-08-2022 Neutrophils (Bld) [#/Vol] 2.6 10*3/uL 1.8-7.7 [facility] Neutrophils/100 WBC Auto (Bl d)Ordered By: Lashell Villar on 10-08-2022 Neutrophils/100 WBC (Bld) 55.6 % . [facility] No Panel InformationOrdered By: Lashell Villar on 10-08-2022 Estimated GFR (CKD-EPI) > 60.0 mL/Min [facility] Creatinine Clearance (Chem N/A [facility] Nucleated erythrocytes [Pres ence] in Blood by Automated countOrdered By: Lashell Villar on 10-08-2022 Nucleated RBC Auto Ql (Bld) 0.2 /100{WBC} 0-0.5 [facility] Platelet mean volume Auto (B ld) [Entitic vol]Ordered By: Lashell Villar on 10-08-2022 Platelet mean volume (Bld) [Entitic vol] 9.5 fL 6.6-10.1 [facility] Platelets Auto (Bld) [#/Vol] Ordered By: Lashell Villar on 10-08-2022 Platelets (Bld) [#/Vol] 148 10*3/uL 150-450 [facility] Potassium [Moles/volume] in Serum or PlasmaOrdered By: Lashell Villar on 10-08-2022 Potassium [Moles/Vol] 3.8 mmol/L 3.5-5.1 [facility] Protein [Mass/volume] in Ser um or PlasmaOrdered By: Lashell Villar on 10-08-2022 Protein [Mass/Vol] 7.5 g/dL 6.4-8.9 [facility] RBC Auto (Bld) [#/Vol]Ordere d By: Lashell Villar on 10-08-2022 RBC (Bld) [#/Vol] 4.47 10*6/uL 3.90-5.60 [facility] [place] Serum or plasma albumin/glob ulin mass ratioOrdered By: Lashell Villar on 10-08-2022 Albumin/Globulin [Mass ratio] 1.3 {ratio} [facility] Serum or plasma anion gap de terminationOrdered By: Lashell Villar on 10-08-2022 Anion gap [Moles/Vol] 11.2 mmol/L 6.0-15.0 [facility] Sodium [Moles/volume] in Ser um or PlasmaOrdered By: Lashell Villar on 10-08-2022 Sodium [Moles/Vol] 138 mmol/L 136-145 [facility] Urea nitrogen [Mass/volume] in Serum or PlasmaOrdered By: Lashell Villar on 10-08-2022 Urea nitrogen [Mass/Vol] 14 mg/dL 7 [facility] WBC Auto (Bld) [#/Vol]Ordere d By: Lashell Villar on 10-08-2022 WBC (Bld) [#/Vol] 4.7 10*3/uL 4.1-10.5 [facility] Alanine aminotransferase [En zymatic activity/volume] in Serum or PlasmaOrdered By: Lashell Villar on 06-18-2022 ALT [Catalytic activity/Vol] 25 U/L 7 [facility] Albumin [Mass/volume] in Ser um or Plasma by Bromocresol green (BCG) dye binding methoOrdered By: Lashell Villar on 06-18-2022 Albumin BCG dye [Mass/Vol] 4.1 g/dL 3.5-5.7 [facility] Alkaline phosphatase [Enzyma tic activity/volume] in Serum or PlasmaOrdered By: Lashell Villar on 06-18-2022 ALP [Catalytic activity/Vol] 68 U/L 34-104 [facility] Aspartate aminotransferase [ Enzymatic activity/volume] in Serum or PlasmaOrdered By: Lashell Villar on 06-18-2022 AST [Catalytic activity/Vol] 33 U/L 13-39 [facility] Basophils Auto (Bld) [#/Vol] Ordered By: Lashell Villar on 06-18-2022 Basophils (Bld) [#/Vol] 0.0 10*3/uL 0.0-0.2 [facility] Basophils/100 WBC Auto (Bld) Ordered By: Lashell Villar on 06-18-2022 Basophils/100 WBC (Bld) 0.5 % . [facility] Bilirubin.total [Mass/volume ] in Serum or PlasmaOrdered By: Lashell Villar on 06-18-2022 Bilirubin [Mass/Vol] 0.5 mg/dL 0.3-1.0 [facility] Calcium [Mass/volume] in Ser um or PlasmaOrdered By: Lashell Villar on 06-18-2022 Calcium [Mass/Vol] 9.7 mg/dL 8.6-10.3 [facility] Carbon dioxide, total [Moles /volume] in Serum or PlasmaOrdered By: Lashell Villar on 06-18-2022 CO2 [Moles/Vol] 27.2 mmol/L 21.0-31.0 [facility] Chloride [Moles/volume] in S jessica or PlasmaOrdered By: Lashell Villar on 06-18-2022 Chloride [Moles/Vol] 105 mmol/L 98-107 [facility] Creatinine [Mass/volume] in Serum or PlasmaOrdered By: Lashell Villar on 06-18-2022 Creatinine [Mass/Vol] 0.81 mg/dL 0.70-1.30 [facility] Eosinophils Auto (Bld) [#/Vo l]Ordered By: Lashell Villar on 06-18-2022 Eosinophils (Bld) [#/Vol] 0.2 10*3/uL 0.0-0.45 [facility] Eosinophils/100 WBC Auto (Bl d)Ordered By: Lashell Villar on 06-18-2022 Eosinophils/100 WBC (Bld) 4.6 % . [facility] Erythrocyte distribution wid th Auto (RBC) [Ratio]Ordered By: Lashell Villar on 06-18-2022 Erythrocyte distribution width (RBC) [Ratio] 16.1 % 12.0-14.8 [facility] Erythrocyte sedimentation ra te by Photometric methodOrdered By: Lashell Villar on 06-18-2022 ESR Photometric method (Bld) [Velocity] 40 mm/hr 0-19 [facility] Globulin Calc (S) [Mass/Vol] Ordered By: Lashell Villar on 06-18-2022 Globulin (S) [Mass/Vol] 3.1 g/dL [facility] Glucose [Mass/volume] in Ser um or PlasmaOrdered By: Lashell Villar on 06-18-2022 Glucose [Mass/Vol] 75 mg/dL 70-100 [facility] Comment on above: ADA recommended refe rence rangeRandom Glucose Reference Range is dependent on time and content of last meal. Glucose of more than 200 mg/dL in a nonstressed, ambulatory subject supports the diagnosis of Diabetes Mellitus. Hematocrit Auto (Bld) [Volum e fraction]Ordered By: Lashell Villar on 06-18-2022 Hematocrit (Bld) [Volume fraction] 43.6 % 38.8-50.0 [facility] Hemoglobin [Mass/volume] in BloodOrdered By: Lashell Villar on 06-18-2022 Hemoglobin (Bld) [Mass/Vol] 14.3 g/dL 13.0-17.0 [facility] Leukocytes [#/volume] correc constance for nucleated erythrocytes in Blood by Automated counOrdered By: Lashell Villar on 06-18-2022 WBC corrected for nucl RBC Auto (Bld) [#/Vol] 4.2 10*3/uL 4.1-10.5 [facility] Lymphocytes Auto (Bld) [#/Vo l]Ordered By: Lashell Villar on 06-18-2022 Lymphocytes (Bld) [#/Vol] 1.1 10*3/uL 1.00-4.8 [facility] Lymphocytes/100 WBC Auto (Bl d)Ordered By: Lashell Villar on 06-18-2022 Lymphocytes/100 WBC (Bld) 26.9 % . [facility] MCH Auto (RBC) [Entitic mass ]Ordered By: Lashell Villar on 06-18-2022 MCH (RBC) [Entitic mass] 30.8 pg 27.5-35.2 [facility] MCHC Auto (RBC) [Mass/Vol]Or dered By: Lashell Villar on 06-18-2022 MCHC (RBC) [Mass/Vol] 32.8 g/dL 32.5-35.6 [facility] MCV Auto (RBC) [Entitic vol] Ordered By: Lashell Villar on 06-18-2022 MCV (RBC) [Entitic vol] 93.9 fL 83.5-101 [facility] Monocytes Auto (Bld) [#/Vol] Ordered By: Lashell Villar on 06-18-2022 Monocytes (Bld) [#/Vol] 0.7 10*3/uL 0.0-0.8 [facility] Monocytes/100 WBC Auto (Bld) Ordered By: Lashell Villar on 06-18-2022 Monocytes/100 WBC (Bld) 16.6 % . [facility] Neutrophils Auto (Bld) [#/Vo l]Ordered By: Lashell Villar on 06-18-2022 Neutrophils (Bld) [#/Vol] 2.2 10*3/uL 1.8-7.7 [facility] Neutrophils/100 WBC Auto (Bl d)Ordered By: Lashell Villar on 06-18-2022 Neutrophils/100 WBC (Bld) 51.4 % . [facility] No Panel InformationOrdered By: Lashell Villar on 06-18-2022 Estimated GFR (CKD-EPI) > 60.0 mL/Min [facility] Creatinine Clearance (Chem N/A [facility] Nucleated erythrocytes [Pres ence] in Blood by Automated countOrdered By: Lashell Villar on 06-18-2022 Nucleated RBC Auto Ql (Bld) 0.1 /100{WBC} 0-0.5 [facility] Platelet mean volume Auto (B ld) [Entitic vol]Ordered By: Lashell Villar on 06-18-2022 Platelet mean volume (Bld) [Entitic vol] 9.2 fL 6.6-10.1 [facility] Platelets Auto (Bld) [#/Vol] Ordered By: Lashell Villar on 06-18-2022 Platelets (Bld) [#/Vol] 145 10*3/uL 150-450 [facility] Potassium [Moles/volume] in Serum or PlasmaOrdered By: Lashell Villar on 06-18-2022 Potassium [Moles/Vol] 3.8 mmol/L 3.5-5.1 [facility] Protein [Mass/volume] in Ser um or PlasmaOrdered By: Lashell Villar on 06-18-2022 Protein [Mass/Vol] 7.2 g/dL 6.4-8.9 [facility] RBC Auto (Bld) [#/Vol]Ordere d By: Lashell Villar on 06-18-2022 RBC (Bld) [#/Vol] 4.64 10*6/uL 3.90-5.60 [facility] [place] Serum or plasma albumin/glob ulin mass ratioOrdered By: Lashell Villar on 06-18-2022 Albumin/Globulin [Mass ratio] 1.3 {ratio} [facility] Serum or plasma anion gap de terminationOrdered By: Lashell Villar on 06-18-2022 Anion gap [Moles/Vol] 11.6 mmol/L 6.0-15.0 [facility] Sodium [Moles/volume] in Ser um or PlasmaOrdered By: Lashell Villar on 06-18-2022 Sodium [Moles/Vol] 140 mmol/L 136-145 [facility] Urea nitrogen [Mass/volume] in Serum or PlasmaOrdered By: Lashell Villar on 06-18-2022 Urea nitrogen [Mass/Vol] 15 mg/dL 7-25 [facility] WBC Auto (Bld) [#/Vol]Ordere d By: Lashell Villar on 06-18-2022 WBC (Bld) [#/Vol] 4.2 10*3/uL 4.1-10.5 [facility] Alanine aminotransferase [En zymatic activity/volume] in Serum or PlasmaOrdered By: Lashell Villar on 04-23-2022 ALT [Catalytic activity/Vol] 21 U/L 7-52 [facility] Albumin [Mass/volume] in Ser um or Plasma by Bromocresol green (BCG) dye binding methoOrdered By: Lashell Villar on 04-23-2022 Albumin BCG dye [Mass/Vol] 4.3 g/dL 3.5-5.7 [facility] Alkaline phosphatase [Enzyma tic activity/volume] in Serum or PlasmaOrdered By: Lashell Villar on 04-23-2022 ALP [Catalytic activity/Vol] 62 U/L 34-104 [facility] Aspartate aminotransferase [ Enzymatic activity/volume] in Serum or PlasmaOrdered By: Lashell Villar on 04-23-2022 AST [Catalytic activity/Vol] 24 U/L 13-39 [facility] Basophils Auto (Bld) [#/Vol] Ordered By: Lashell Villar on 04-23-2022 Basophils (Bld) [#/Vol] 0.0 10*3/uL 0.0-0.2 [facility] Basophils/100 WBC Auto (Bld) Ordered By: Lashell Villar on 04-23-2022 Basophils/100 WBC (Bld) 0.3 % . [facility] Bilirubin.total [Mass/volume ] in Serum or PlasmaOrdered By: Lashell Villar on 04-23-2022 Bilirubin [Mass/Vol] 0.7 mg/dL 0.3-1.0 [facility] Calcium [Mass/volume] in Ser um or PlasmaOrdered By: Lashell Villar on 04-23-2022 Calcium [Mass/Vol] 10.4 mg/dL 8.6-10.3 [facility] Carbon dioxide, total [Moles /volume] in Serum or PlasmaOrdered By: Lashell Villar on 04-23-2022 CO2 [Moles/Vol] 23.5 mmol/L 21.0-31.0 [facility] Chloride [Moles/volume] in S jessica or PlasmaOrdered By: Lashell Villar on 04-23-2022 Chloride [Moles/Vol] 106 mmol/L 98-107 [facility] Creatinine [Mass/volume] in Serum or PlasmaOrdered By: Lashell Villar on 04-23-2022 Creatinine [Mass/Vol] 0.82 mg/dL 0.70-1.30 [facility] Eosinophils Auto (Bld) [#/Vo l]Ordered By: Lashell Villar on 04-23-2022 Eosinophils (Bld) [#/Vol] 0.2 10*3/uL 0.0-0.45 [facility] Eosinophils/100 WBC Auto (Bl d)Ordered By: Lashell Villar on 04-23-2022 Eosinophils/100 WBC (Bld) 2.9 % . [facility] Erythrocyte distribution wid th Auto (RBC) [Ratio]Ordered By: Lashell Villar on 04-23-2022 Erythrocyte distribution width (RBC) [Ratio] 16.2 % 12.0-14.8 [facility] Erythrocyte sedimentation ra te by Photometric methodOrdered By: Lashell Villar on 04-23-2022 ESR Photometric method (Bld) [Velocity] 50 mm/hr 0-19 [facility] Globulin Calc (S) [Mass/Vol] Ordered By: Lashell Villar on 04-23-2022 Globulin (S) [Mass/Vol] 2.9 g/dL [facility] Glucose [Mass/volume] in Ser um or PlasmaOrdered By: Lashell Villar on 04-23-2022 Glucose [Mass/Vol] 91 mg/dL 74-109 [facility] Comment on above: ADA recommended refe rence rangeRandom Glucose Reference Range is dependent on time and content of last meal. Glucose of more than 200 mg/dL in a nonstressed, ambulatory subject supports the diagnosis of Diabetes Mellitus. Hematocrit Auto (Bld) [Volum e fraction]Ordered By: Lashell Villar on 04-23-2022 Hematocrit (Bld) [Volume fraction] 41.7 % 38.8-50.0 [facility] Hemoglobin [Mass/volume] in BloodOrdered By: Lashell Villar on 04-23-2022 Hemoglobin (Bld) [Mass/Vol] 14.0 g/dL 13.0-17.0 [facility] Laboratory - Chemistry and C hemistry - challengeOrdered By: Lashell Villar on 04-23-2022 GFR/1.73 sq M.predicted MDRD (S/P/Bld) [Vol rate/Area] mL/min/{1.73_m2} [facility] Leukocytes [#/volume] correc constance for nucleated erythrocytes in Blood by Automated counOrdered By: Lashell Villar on 04-23-2022 WBC corrected for nucl RBC Auto (Bld) [#/Vol] 6.1 10*3/uL 4.1-10.5 [facility] Lymphocytes Auto (Bld) [#/Vo l]Ordered By: Lashell Villar on 04-23-2022 Lymphocytes (Bld) [#/Vol] 1.3 10*3/uL 1.00-4.8 [facility] Lymphocytes/100 WBC Auto (Bl d)Ordered By: Lashell Villar on 04-23-2022 Lymphocytes/100 WBC (Bld) 20.6 % . [facility] MCH Auto (RBC) [Entitic mass ]Ordered By: Lashell Villar on 04-23-2022 MCH (RBC) [Entitic mass] 31.1 pg 27.5-35.2 [facility] MCHC Auto (RBC) [Mass/Vol]Or dered By: Lashell Villar on 04-23-2022 MCHC (RBC) [Mass/Vol] 33.7 g/dL 32.5-35.6 [facility] MCV Auto (RBC) [Entitic vol] Ordered By: Lashell Villar on 04-23-2022 MCV (RBC) [Entitic vol] 92.4 fL 83.5-101 [facility] Monocytes Auto (Bld) [#/Vol] Ordered By: Lashell Villar on 04-23-2022 Monocytes (Bld) [#/Vol] 0.7 10*3/uL 0.0-0.8 [facility] Monocytes/100 WBC Auto (Bld) Ordered By: Lashell Villar on 04-23-2022 Monocytes/100 WBC (Bld) 11.0 % . [facility] Neutrophils Auto (Bld) [#/Vo l]Ordered By: Lashell Villar on 04-23-2022 Neutrophils (Bld) [#/Vol] 4.0 10*3/uL 1.8-7.7 [facility] Neutrophils/100 WBC Auto (Bl d)Ordered By: Lashell Villar on 04-23-2022 Neutrophils/100 WBC (Bld) 65.2 % . [facility] No Panel InformationOrdered By: Lashell Villar on 04-23-2022 Pharmacy Creatinine Clearance (Chem N/A [facility] Nucleated erythrocytes [Pres ence] in Blood by Automated countOrdered By: Lashell Villar on 04-23-2022 Nucleated RBC Auto Ql (Bld) 0.1 /100{WBC} 0-0.5 [facility] Platelet mean volume Auto (B ld) [Entitic vol]Ordered By: Lashell Villar on 04-23-2022 Platelet mean volume (Bld) [Entitic vol] 9.3 fL 6.6-10.1 [facility] Platelets Auto (Bld) [#/Vol] Ordered By: Lashell Vilalr on 04-23-2022 Platelets (Bld) [#/Vol] 152 10*3/uL 150-450 [facility] Potassium [Moles/volume] in Serum or PlasmaOrdered By: Lashell Villar on 04-23-2022 Potassium [Moles/Vol] 3.8 mmol/L 3.5-5.1 [facility] Protein [Mass/volume] in Ser um or PlasmaOrdered By: Lashell Villar on 04-23-2022 Protein [Mass/Vol] 7.2 g/dL 6.4-8.9 [facility] RBC Auto (Bld) [#/Vol]Ordere d By: Lashell Villar on 04-23-2022 RBC (Bld) [#/Vol] 4.51 10*6/uL 3.90-5.60 [facility] [place] Serum or plasma albumin/glob ulin mass ratioOrdered By: Lashell Villar on 04-23-2022 Albumin/Globulin [Mass ratio] 1.5 {ratio} [facility] Serum or plasma anion gap de terminationOrdered By: Lashell Villar on 04-23-2022 Anion gap [Moles/Vol] 12.3 mmol/L 6.0-15.0 [facility] Sodium [Moles/volume] in Ser um or PlasmaOrdered By: Lashell Villar on 04-23-2022 Sodium [Moles/Vol] 138 mmol/L 136-145 [facility] Urea nitrogen [Mass/volume] in Serum or PlasmaOrdered By: Lashell Villar on 04-23-2022 Urea nitrogen [Mass/Vol] 16 mg/dL 7-25 [facility] WBC Auto (Bld) [#/Vol]Ordere d By: Lashell Villar on 04-23-2022 WBC (Bld) [#/Vol] 6.1 10*3/uL 4.1-10.5 [facility] Basophils Auto (Bld) [#/Vol] Ordered By: Clarke Bertrand on 12-10-2021 Basophils (Bld) [#/Vol] 0.0 10*3/uL 0.0-0.2 [facility] Basophils/100 WBC Auto (Bld) Ordered By: Clarke Bertrand on 12-10-2021 Basophils/100 WBC (Bld) 0.4 % . [facility] Body fluid albumin measureme nt (mass/volume)Ordered By: Clarke Bertrand on 12-10-2021 Albumin (Body fld) [Mass/Vol] 3.6 g/dL 3.2-5.5 [facility] Creatinine and Glomerular fi ltration rate.predicted panel (S/P/Bld)Ordered By: Clarke Bertrand on 12-10-2021 Creatinine [Mass/Vol] 0.81 mg/dL 0.64-1.27 [facility] Eosinophils Auto (Bld) [#/Vo l]Ordered By: Clarke Bertrand on 12-10-2021 Eosinophils (Bld) [#/Vol] 0.3 10*3/uL 0.0-0.45 [facility] Eosinophils/100 WBC Auto (Bl d)Ordered By: Clarke Bertrand on 12-10-2021 Eosinophils/100 WBC (Bld) 3.6 % . [facility] Erythrocyte distribution wid th Auto (RBC) [Ratio]Ordered By: Clarke Bertrand on 12-10-2021 Erythrocyte distribution width (RBC) [Ratio] 16.8 % 12.0-14.8 [facility] Erythrocyte sedimentation ra te by Photometric methodOrdered By: Clarke Bertrand on 12-10-2021 ESR Photometric method (Bld) [Velocity] 45 mm/hr 0-19 [facility] Estimated glomerular filtrat ion rate (GFR) non- AmericanOrdered By: Clarke Bertrand on 12-10-2021 GFR/1.73 sq M.predicted among non-blacks MDRD (S/P/Bld) [Vol rate/Area] > 60 mL/Min [facility] Globulin Calc (S) [Mass/Vol] Ordered By: Clarke Bertrand on 12-10-2021 Globulin (S) [Mass/Vol] 3.5 g/dL [facility] Hematocrit Auto (Bld) [Volum e fraction]Ordered By: Clarke Bertrand on 12-10-2021 Hematocrit (Bld) [Volume fraction] 46.0 % 38.8-50.0 [facility] Hemoglobin [Mass/volume] in BloodOrdered By: Clarke Bertrand on 12-10-2021 Hemoglobin (Bld) [Mass/Vol] 14.8 g/dL 13.0-17.0 [facility] Laboratory - Hematology and Cell countsOrdered By: Clarke Bertrand on 12-10-2021 Nucleated RBC/100 WBC (Bld) [Ratio] 0.1 % 0-0.5 [facility] Leukocytes [#/volume] in Blo od by Automated countOrdered By: Clarke Bertrand on 12-10-2021 WBC (Bld) [#/Vol] 7.9 10*3/uL 4.5-11.0 [facility] Lymphocytes Auto (Bld) [#/Vo l]Ordered By: Clarke Bertrand on 12-10-2021 Lymphocytes (Bld) [#/Vol] 1.1 10*3/uL 1.00-4.8 [facility] Lymphocytes/100 WBC Auto (Bl d)Ordered By: Clarke Bertrand on 12-10-2021 Lymphocytes/100 WBC (Bld) 14.4 % . [facility] MCH Auto (RBC) [Entitic mass ]Ordered By: Clarke Bertrand on 12-10-2021 MCH (RBC) [Entitic mass] 30.1 pg 27.5-35.2 [facility] MCHC Auto (RBC) [Mass/Vol]Or dered By: Clarke Bertrand on 12-10-2021 MCHC (RBC) [Mass/Vol] 32.1 g/dL 32.5-35.6 [facility] MCV Auto (RBC) [Entitic vol] Ordered By: Clarke Bertrand on 12-10-2021 MCV (RBC) [Entitic vol] 93.6 fL 83.5-101 [facility] Monocytes Auto (Bld) [#/Vol] Ordered By: Clarke Bertrand on 12-10-2021 Monocytes (Bld) [#/Vol] 0.9 10*3/uL 0.0-0.8 [facility] Monocytes/100 WBC Auto (Bld) Ordered By: Clarke Bertrand on 12-10-2021 Monocytes/100 WBC (Bld) 11.1 % . [facility] Neutrophils Auto (Bld) [#/Vo l]Ordered By: Clarke Bertrand on 12-10-2021 Neutrophils (Bld) [#/Vol] 5.6 10*3/uL 1.8-7.7 [facility] Neutrophils/100 WBC Auto (Bl d)Ordered By: Clarke Bertrand on 12-10-2021 Neutrophils/100 WBC (Bld) 70.5 % . [facility] No Panel InformationOrdered By: Clarke Bertrand on 12-10-2021 Estimated GFR () > 60 mL/Min [facility] Comment on above: GFR estimated refere nce range: According to KDOQI guidelines, <60 ml/min/1.73m2 is sufficient to diagnose a patient with chronic kidney disease. Pharmacy Creatinine Clearance (Chem N/A [facility] Platelet mean volume Auto (B ld) [Entitic vol]Ordered By: Clarke Bertrand on 12-10-2021 Platelet mean volume (Bld) [Entitic vol] 9.4 fL 6.6-10.1 [facility] Platelets Auto (Bld) [#/Vol] Ordered By: Clarke Bertrand on 12-10-2021 Platelets (Bld) [#/Vol] 174 10*3/uL 150-450 [facility] Protein [Mass/volume] in Ser um or PlasmaOrdered By: Clarke Bertrand on 12-10-2021 Protein [Mass/Vol] 7.1 g/dL 6.1-7.9 [facility] RBC Auto (Bld) [#/Vol]Ordere d By: Clarke Bertrand on 12-10-2021 RBC (Bld) [#/Vol] 4.92 10*6/uL 3.90-5.60 [facility] Serum or plasma alanine marie otransferase measurement without P-5'-P (enzymatic activiOrdered By: Clarke Bertrand on 12-10-2021 ALT No additional P-5'-P [Catalytic activity/Vol] 22 U/L 10-60 [facility] Serum or plasma albumin/glob ulin mass ratioOrdered By: Clarke Bertrand on 12-10-2021 Albumin/Globulin [Mass ratio] 1.0 {ratio} [facility] Serum or plasma alkaline samantha sphatase measurement (enzymatic activity/volume)Ordered By: Clarke Bertrand on 12-10-2021 ALP [Catalytic activity/Vol] 71 U/L 32-92 [facility] Serum or plasma anion gap de terminationOrdered By: Clarke Bertrand on 12-10-2021 Anion gap [Moles/Vol] 15.4 mmol/L 6.0-15.0 [facility] Serum or plasma aspartate am inotransferase measurement (enzymatic activity/volume)Ordered By: Clarke Bertrand on 12-10-2021 AST [Catalytic activity/Vol] 23 U/L 10-42 [facility] Serum or plasma calcium timo urement (mass/volume)Ordered By: Clarke Bertrand on 12-10-2021 Calcium [Mass/Vol] 10.0 mg/dL 8.2-10.2 [facility] Serum or plasma chloride alexey surement (moles/volume)Ordered By: Clarke Bertrand on 12-10-2021 Chloride [Moles/Vol] 101 mmol/L 95-114 [facility] Serum or plasma glucose timo urement (mass/volume)Ordered By: Clarke Bertrand on 12-10-2021 Glucose [Mass/Vol] 88 mg/dL 70-100 [facility] Comment on above: ADA recommended refe rence rangeRandom Glucose Reference Range is dependent on time and content of last meal. Glucose of more than 200 mg/dL in a nonstressed, ambulatory subject supports the diagnosis of Diabetes Mellitus. Serum or plasma potassium me asurement (moles/volume)Ordered By: Clarke Bertrand on 12-10-2021 Potassium [Moles/Vol] 4.1 mmol/L 3.5-5.1 [facility] Serum or plasma sodium measu rement (moles/volume)Ordered By: Clarke Bertrand on 12-10-2021 Sodium [Moles/Vol] 136 mmol/L 136-146 [facility] Serum or plasma total biliru bin measurement (mass/volume)Ordered By: Clarke Bertrand on 12-10-2021 Bilirubin [Mass/Vol] 0.9 mg/dL 0.3-1.2 [facility] Serum or plasma total carbon dioxide measurement (moles/volume)Ordered By: Clarke Bertrand on 12-10-2021 CO2 [Moles/Vol] 23.7 mmol/L 22.0-30.0 [facility] Serum or plasma urea nitroge n measurement (mass/volume)Ordered By: Clarke Bertrand on 12-10-2021 Urea nitrogen [Mass/Vol] 15 mg/dL 9-23 [facility] Albumin [Mass/volume] in Ser um or PlasmaOrdered By: Clarke Bertrand on 10-17-2021 Albumin [Mass/Vol] 3.8 g/dL 3.2-5.5 [facility] Basophils Auto (Bld) [#/Vol] Ordered By: Clarke Bertrand on 10-17-2021 Basophils (Bld) [#/Vol] 0.0 10*3/uL 0.0-0.2 [facility] Basophils/100 WBC Auto (Bld) Ordered By: Clarke Bertrand on 10-17-2021 Basophils/100 WBC (Bld) 0.4 % . [facility] Blood hemoglobin measurement (mass/volume)Ordered By: Clarke Bertrand on 10-17-2021 Hemoglobin (Bld) [Mass/Vol] 14.6 g/dL 13.0-17.0 [facility] Blood leukocytes automated c ount (number/volume)Ordered By: Clarke Bertrand on 10-17-2021 WBC (Bld) [#/Vol] 4.8 10*3/uL 4.5-11.0 [facility] Creatinine and Glomerular fi ltration rate.predicted panel (S/P/Bld)Ordered By: Clarke Bertrand on 10-17-2021 Creatinine [Mass/Vol] 0.86 mg/dL 0.64-1.27 [facility] Eosinophils Auto (Bld) [#/Vo l]Ordered By: Clarke Bertrand on 10-17-2021 Eosinophils (Bld) [#/Vol] 0.2 10*3/uL 0.0-0.45 [facility] Eosinophils/100 WBC Auto (Bl d)Ordered By: Clarke Bertrand on 10-17-2021 Eosinophils/100 WBC (Bld) 4.4 % . [facility] Erythrocyte distribution wid th Auto (RBC) [Ratio]Ordered By: Clarke Bertrand on 10-17-2021 Erythrocyte distribution width (RBC) [Ratio] 16.6 % 12.0-14.8 [facility] Erythrocyte sedimentation ra te by Photometric methodOrdered By: Clarke Bertrand on 10-17-2021 ESR Photometric method (Bld) [Velocity] 37 mm/hr 0-19 [facility] Estimated glomerular filtrat ion rate (GFR) non- AmericanOrdered By: Clarke Bertrand on 10-17-2021 GFR/1.73 sq M.predicted among non-blacks MDRD (S/P/Bld) [Vol rate/Area] > 60 mL/Min [facility] Globulin Calc (S) [Mass/Vol] Ordered By: Clarke Bertrand on 10-17-2021 Globulin (S) [Mass/Vol] 3.1 g/dL [facility] Hematocrit Auto (Bld) [Volum e fraction]Ordered By: Clarke Bertrand on 10-17-2021 Hematocrit (Bld) [Volume fraction] 44.2 % 38.8-50.0 [facility] Laboratory - Hematology and Cell countsOrdered By: Clarke Bertrand on 10-17-2021 Nucleated RBC/100 WBC (Bld) [Ratio] 0.2 % 0-0.5 [facility] Lymphocytes Auto (Bld) [#/Vo l]Ordered By: Clarke Bertrand on 10-17-2021 Lymphocytes (Bld) [#/Vol] 1.2 10*3/uL 1.00-4.8 [facility] Lymphocytes/100 WBC Auto (Bl d)Ordered By: Clarke Bertrand on 10-17-2021 Lymphocytes/100 WBC (Bld) 25.9 % . [facility] MCH Auto (RBC) [Entitic mass ]Ordered By: Clarke Bertrand on 10-17-2021 MCH (RBC) [Entitic mass] 30.8 pg 27.5-35.2 [facility] MCHC Auto (RBC) [Mass/Vol]Or dered By: Clarke Bertrand on 10-17-2021 MCHC (RBC) [Mass/Vol] 33.1 g/dL 32.5-35.6 [facility] MCV Auto (RBC) [Entitic vol] Ordered By: Clarke Bertrand on 10-17-2021 MCV (RBC) [Entitic vol] 93.2 fL 83.5-101 [facility] Monocytes Auto (Bld) [#/Vol] Ordered By: Clarke Bertrand on 10-17-2021 Monocytes (Bld) [#/Vol] 0.6 10*3/uL 0.0-0.8 [facility] Monocytes/100 WBC Auto (Bld) Ordered By: Clarke Bertrand on 10-17-2021 Monocytes/100 WBC (Bld) 12.9 % . [facility] Neutrophils Auto (Bld) [#/Vo l]Ordered By: Clarke Bertrand on 10-17-2021 Neutrophils (Bld) [#/Vol] 2.7 10*3/uL 1.8-7.7 [facility] Neutrophils/100 WBC Auto (Bl d)Ordered By: Clarke Bertrand on 10-17-2021 Neutrophils/100 WBC (Bld) 56.4 % . [facility] No Panel InformationOrdered By: Clarke Bertrand on 10-17-2021 Estimated GFR () > 60 mL/Min [facility] Comment on above: GFR estimated refere nce range: According to KDOQI guidelines, <60 ml/min/1.73m2 is sufficient to diagnose a patient with chronic kidney disease. Pharmacy Creatinine Clearance (Chem N/A [facility] Platelet mean volume Auto (B ld) [Entitic vol]Ordered By: Clarke Bertrand on 10-17-2021 Platelet mean volume (Bld) [Entitic vol] 8.9 fL 6.6-10.1 [facility] Platelets Auto (Bld) [#/Vol] Ordered By: Clarke Bertrand on 10-17-2021 Platelets (Bld) [#/Vol] 176 10*3/uL 150-450 [facility] Protein [Mass/volume] in Ser um or PlasmaOrdered By: Clarke Bertrand on 10-17-2021 Protein [Mass/Vol] 6.9 g/dL 6.1-7.9 [facility] RBC Auto (Bld) [#/Vol]Ordere d By: Clarke Bertrand on 10-17-2021 RBC (Bld) [#/Vol] 4.74 10*6/uL 3.90-5.60 [facility] Serum or plasma alanine marie otransferase measurement without P-5'-P (enzymatic activiOrdered By: Clarke Bertrand on 10-17-2021 ALT No additional P-5'-P [Catalytic activity/Vol] 22 U/L 10-60 [facility] Serum or plasma albumin/glob ulin mass ratioOrdered By: Clarke Bertrand on 10-17-2021 Albumin/Globulin [Mass ratio] 1.2 {ratio} [facility] Serum or plasma alkaline samantha sphatase measurement (enzymatic activity/volume)Ordered By: Clarke Bertrand on 10-17-2021 ALP [Catalytic activity/Vol] 72 U/L 32-92 [facility] Serum or plasma anion gap de terminationOrdered By: Clarke Bertrand on 10-17-2021 Anion gap [Moles/Vol] 13.2 mmol/L 6.0-15.0 [facility] Serum or plasma aspartate am inotransferase measurement (enzymatic activity/volume)Ordered By: Clarke Bertrand on 10-17-2021 AST [Catalytic activity/Vol] 31 U/L 10-42 [facility] Serum or plasma calcium timo urement (mass/volume)Ordered By: Clarke Bertrand on 10-17-2021 Calcium [Mass/Vol] 9.6 mg/dL 8.2-10.2 [facility] Serum or plasma chloride alexey surement (moles/volume)Ordered By: Clarke Bertrand on 10-17-2021 Chloride [Moles/Vol] 101 mmol/L 95-114 [facility] Serum or plasma glucose timo urement (mass/volume)Ordered By: lCarke Bertrand on 10-17-2021 Glucose [Mass/Vol] 86 mg/dL 70-100 [facility] Comment on above: ADA recommended refe rence range Random Glucose Reference Range is dependent on time and content of last meal. Glucose of more than 200 mg/dL in a nonstressed, ambulatory subject supports the diagnosis of Diabetes Mellitus. ADA recommended refe rence rangeRandom Glucose Reference Range is dependent on time and content of last meal. Glucose of more than 200 mg/dL in a nonstressed, ambulatory subject supports the diagnosis of Diabetes Mellitus. Serum or plasma potassium me asurement (moles/volume)Ordered By: Clarke Bertrand on 10-17-2021 Potassium [Moles/Vol] 4.4 mmol/L 3.5-5.1 [facility] Serum or plasma sodium measu rement (moles/volume)Ordered By: Clarke Bertrand on 10-17-2021 Sodium [Moles/Vol] 136 mmol/L 136-146 [facility] Serum or plasma total biliru bin measurement (mass/volume)Ordered By: Clarke Bertrand on 10-17-2021 Bilirubin [Mass/Vol] 0.3 mg/dL 0.3-1.2 [facility] Serum or plasma total carbon dioxide measurement (moles/volume)Ordered By: Clarke Bertrand on 10-17-2021 CO2 [Moles/Vol] 26.2 mmol/L 22.0-30.0 [facility] Serum or plasma urea nitroge n measurement (mass/volume)Ordered By: Clarke Bertrand on 10-17-2021 Urea nitrogen [Mass/Vol] 15 mg/dL 9- [facility] COVID-19 Positive/NegativeOr dered By: Vickey Moeller on 09-13-2021 SARS-CoV-2 (COVID-19) N gene ELENA+probe Ql (Resp) Negative Negative [facility] Comment on above: Testing for SARS-CoV -2 by RT-PCR This test was developed and its performance characteristics determined by [employer] ([employer]) and validated at the [facility]. This test has not been FDA cleared or approved. This test has been authorized by FDA under an Emergency Use Authorization (EUA). This test has been validated in accordance with the FDA's Guidance Document (Policy for Diagnostics Testing in Laboratories Certified to Perform High Complexity Testing under CLIA prior to Emergency Use Authorization for Coronavirus Disease-2019 during the Public Health Emergency) issued on May 12, 2019. This test is only authorized for the duration of time the declaration that circumstances exist justifying the authorization of the emergency use of in vitro diagnostic tests for detection of SARS-CoV-2 virus and/or diagnosis of COVID-19 infection under section 564(b)(1) of the Act, 21 U.S.C. 360bbb-3(b)(1), unless the authorization is terminated or revoked sooner. Testing for SARS-CoV -2 by RT-PCRThis test was developed and its performance characteristics determined by [employer] ([employer]) and validated at the [facility]. This test has not been FDA cleared or approved. This test has been authorized by FDA under an Emergency Use Authorization (EUA). This test has been validated in accordance with the FDA's Guidance Document (Policy for Diagnostics Testing in Laboratories Certified to Perform High Complexity Testing under CLIA prior to Emergency Use Authorization for Coronavirus Disease-2019 during the Public Health Emergency) issued on May 12, 2019. This test is only authorized for the duration of time the declaration that circumstances exist justifying the authorization of the emergency use of in vitro diagnostic tests for detection of SARS-CoV-2 virus and/or diagnosis of COVID-19 infection under section 564(b)(1) of the Act, 21 U.S.C. 360bbb-3(b)(1), unless the authorization is terminated or revoked sooner. Basophils Auto (Bld) [#/Vol] Ordered By: Clarke Bertrand on 08-22-2021 Basophils (Bld) [#/Vol] 0.0 10*3/uL 0.0-0.2 [facility] Basophils/100 WBC Auto (Bld) Ordered By: Clarke Bertrand on 08-22-2021 Basophils/100 WBC (Bld) 0.7 % . [facility] Blood hemoglobin measurement (mass/volume)Ordered By: Clarke Bertrand on 08-22-2021 Hemoglobin (Bld) [Mass/Vol] 14.4 g/dL 13.0-17.0 [facility] Blood leukocytes automated c ount (number/volume)Ordered By: Clarke Bertrand on 08-22-2021 WBC (Bld) [#/Vol] 3.2 10*3/uL 4.5-11.0 [facility] Body fluid albumin measureme nt (mass/volume)Ordered By: Clarke Bertrand on 08-22-2021 Albumin (Body fld) [Mass/Vol] 3.7 g/dL 3.2-5.5 [facility] Creatinine and Glomerular fi ltration rate.predicted panel (S/P/Bld)Ordered By: Clarke Bertrand on 08-22-2021 Creatinine [Mass/Vol] 0.78 mg/dL 0.64-1.27 [facility] Eosinophils Auto (Bld) [#/Vo l]Ordered By: Clarke Bertrand on 08-22-2021 Eosinophils (Bld) [#/Vol] 0.1 10*3/uL 0.0-0.45 [facility] Eosinophils/100 WBC Auto (Bl d)Ordered By: Clarke Bertrand on 08-22-2021 Eosinophils/100 WBC (Bld) 4.5 % . [facility] Erythrocyte distribution wid th Auto (RBC) [Ratio]Ordered By: Clarke Bertrand on 08-22-2021 Erythrocyte distribution width (RBC) [Ratio] 16.1 % 12.0-14.8 [facility] Erythrocyte sedimentation ra te by Photometric methodOrdered By: Clarke Bertrand on 08-22-2021 ESR Photometric method (Bld) [Velocity] 37 mm/hr 0-19 [facility] Estimated glomerular filtrat ion rate (GFR) non- AmericanOrdered By: Clarke Bertrand on 08-22-2021 GFR/1.73 sq M.predicted among non-blacks MDRD (S/P/Bld) [Vol rate/Area] > 60 mL/Min [facility] Globulin Calc (S) [Mass/Vol] Ordered By: Clarke Bertrand on 08-22-2021 Globulin (S) [Mass/Vol] 3.3 g/dL [facility] Hematocrit Auto (Bld) [Volum e fraction]Ordered By: Clarke Bertrand on 08-22-2021 Hematocrit (Bld) [Volume fraction] 43.5 % 38.8-50.0 [facility] Laboratory - Hematology and Cell countsOrdered By: Clarke Bertrand on 08-22-2021 Nucleated RBC/100 WBC (Bld) [Ratio] 0.1 % 0-0.5 [facility] Lymphocytes Auto (Bld) [#/Vo l]Ordered By: Clarke Bertrand on 08-22-2021 Lymphocytes (Bld) [#/Vol] 1.1 10*3/uL 1.00-4.8 [facility] Lymphocytes/100 WBC Auto (Bl d)Ordered By: Clarke Bertrand on 08-22-2021 Lymphocytes/100 WBC (Bld) 33.4 % . [facility] MCH Auto (RBC) [Entitic mass ]Ordered By: Clarke Bertrand on 08-22-2021 MCH (RBC) [Entitic mass] 30.8 pg 27.5-35.2 [facility] MCHC Auto (RBC) [Mass/Vol]Or dered By: Clarke Bertrand on 08-22-2021 MCHC (RBC) [Mass/Vol] 33.1 g/dL 32.5-35.6 [facility] MCV Auto (RBC) [Entitic vol] Ordered By: Clarke Bertrand on 08-22-2021 MCV (RBC) [Entitic vol] 92.9 fL 83.5-101 [facility] Monocytes Auto (Bld) [#/Vol] Ordered By: Clarke Bertrand on 08-22-2021 Monocytes (Bld) [#/Vol] 0.4 10*3/uL 0.0-0.8 [facility] Monocytes/100 WBC Auto (Bld) Ordered By: Clarke Bertrand on 08-22-2021 Monocytes/100 WBC (Bld) 13.8 % . [facility] Neutrophils Auto (Bld) [#/Vo l]Ordered By: Clarke Bertrand on 08-22-2021 Neutrophils (Bld) [#/Vol] 1.5 10*3/uL 1.8-7.7 [facility] Neutrophils/100 WBC Auto (Bl d)Ordered By: Clarke Bertrand on 08-22-2021 Neutrophils/100 WBC (Bld) 47.6 % . [facility] No Panel InformationOrdered By: Clarke Bertrand on 08-22-2021 Estimated GFR () > 60 mL/Min [facility] Comment on above: GFR estimated refere nce range: According to KDOQI guidelines, <60 ml/min/1.73m2 is sufficient to diagnose a patient with chronic kidney disease. Pharmacy Creatinine Clearance (Chem N/A [facility] Platelet mean volume Auto (B ld) [Entitic vol]Ordered By: Clarke Bertrand on 08-22-2021 Platelet mean volume (Bld) [Entitic vol] 9.2 fL 6.6-10.1 [facility] Platelets Auto (Bld) [#/Vol] Ordered By: Clarke Bertrand on 08-22-2021 Platelets (Bld) [#/Vol] 147 10*3/uL 150-450 [facility] Protein [Mass/volume] in Ser um or PlasmaOrdered By: Clarke Bertrand on 08-22-2021 Protein [Mass/Vol] 7.0 g/dL 6.1-7.9 [facility] RBC Auto (Bld) [#/Vol]Ordere d By: Clarke Bertrand on 08-22-2021 RBC (Bld) [#/Vol] 4.68 10*6/uL 3.90-5.60 [facility] Serum or plasma alanine marie otransferase measurement without P-5'-P (enzymatic activiOrdered By: Clarke Bertrand on 08-22-2021 ALT No additional P-5'-P [Catalytic activity/Vol] 27 U/L 10-60 [facility] Serum or plasma albumin/glob ulin mass ratioOrdered By: Clarke Bertrand on 08-22-2021 Albumin/Globulin [Mass ratio] 1.1 {ratio} [facility] Serum or plasma alkaline samantha sphatase measurement (enzymatic activity/volume)Ordered By: Clarke Bertrand on 08-22-2021 ALP [Catalytic activity/Vol] 68 U/L 32-92 [facility] Serum or plasma aspartate am inotransferase measurement (enzymatic activity/volume)Ordered By: Clarke Bertrand on 08-22-2021 AST [Catalytic activity/Vol] 32 U/L 10-42 [facility] Serum or plasma calcium timo urement (mass/volume)Ordered By: Clarke Bertrand on 08-22-2021 Calcium [Mass/Vol] 10.0 mg/dL 8.2-10.2 [facility] Serum or plasma chloride alexey surement (moles/volume)Ordered By: Clarke Bertrand on 08-22-2021 Chloride [Moles/Vol] 102 mmol/L 95-114 [facility] Serum or plasma glucose timo urement (mass/volume)Ordered By: Clarke Bertrand on 08-22-2021 Glucose [Mass/Vol] 91 mg/dL 70-100 [facility] Comment on above: ADA recommended refe rence range Random Glucose Reference Range is dependent on time and content of last meal. Glucose of more than 200 mg/dL in a nonstressed, ambulatory subject supports the diagnosis of Diabetes Mellitus. Serum or plasma potassium me asurement (moles/volume)Ordered By: Clarke Bertrand on 08-22-2021 Potassium [Moles/Vol] 4.0 mmol/L 3.5-5.1 [facility] Serum or plasma sodium measu rement (moles/volume)Ordered By: Clarke Bertrand on 08-22-2021 Sodium [Moles/Vol] 137 mmol/L 136-146 [facility] Serum or plasma total biliru bin measurement (mass/volume)Ordered By: Clarke Bertrand on 08-22-2021 Bilirubin [Mass/Vol] 0.6 mg/dL 0.3-1.2 [facility] Serum or plasma total carbon dioxide measurement (moles/volume)Ordered By: Clarke Bertrand on 08-22-2021 CO2 [Moles/Vol] 23.0 mmol/L 22.0-30.0 [facility] Serum or plasma urea nitroge n measurement (mass/volume)Ordered By: Clarke Bertrand on 08-22-2021 Urea nitrogen [Mass/Vol] 12 mg/dL 9-23 [facility] CNPNon 07-22-2021 CNPN Telephone (VALERIA) SHIRLEY HART ([id number]) 1940 M Date Time Provider Department 07/22/21 CYNTHIA OLIVER During your visit today, we recorded the following information about you: Cynthia Oliver MD 07/22/2021 10:31 AM Signed The loop recorder shows SR with lots of atrial ectopy, NOT AF. Allergies As of Date: 07/22/2021 (No Known Allergies) Date Reviewed: 09/11/2020 Reviewed by: Alida Fitzgerald - Fully Assessed Reason for Visit: Results [95] Prescriptions as of 07/22/2021 - golimumab (SIMPONI ARIA INTRAVENOUS) Inject 2 mg intravenously every 8 weeks. 2 mg/kg iv every 8 weeks per protocol (no loading doses) = 180 mg (4 vials) - Cyanocobalamin (VITAMIN B-12) 1,000 mcg TbER Take 1 tablet by mouth once daily. - Omeprazole 40 mg capsule Take 40 mg by mouth once daily. - Adalimumab (HUMIRA PEN) 40 mg/0.8 mL pnkt Inject subcutaneously. - FOLIC ACID ORAL Take by mouth. - methotrexate 2.5 mg tablet Take by mouth one time only. Problem List As Of Date: 07/22/2021 (None) Encounter Status:Closed by CYNTHIA OLIVER on 07/22/21 [facility] SHRILEY HART ([id number]) 1940 M Date Time Provider Department 04/08/21 CYNTHIA OLIVER [facility] During your visit today, we recorded the following information about you: Cynthia Oliver MD 04/08/2021 4:06 PM Signed I left a today about the thirteen seconds of VTNS on his loop recorder on 03/20. I asked that he leave a best time to call back tomorrow. Genie Juarez 04/08/2021 5:10 PM Signed Patient called back. Stated before 10:30am and after 2:30pm. Allergies As of Date: 04/08/2021 (No Known Allergies) Date Reviewed: 09/11/2020 Reviewed by: Alida Fitzgerald - Fully Assessed Reason for Visit: Results [95] Prescriptions as of 04/16/2021 - golimumab (SIMPONI ARIA INTRAVENOUS) Inject 2 mg intravenously every 8 weeks. 2 mg/kg iv every 8 weeks per protocol (no loading doses) = 180 mg (4 vials) - Cyanocobalamin (VITAMIN B-12) 1,000 mcg TbER Take 1 tablet by mouth once daily. - Omeprazole 40 mg capsule Take 40 mg by mouth once daily. - Adalimumab (HUMIRA PEN) 40 mg/0.8 mL pnkt Inject subcutaneously. - FOLIC ACID ORAL Take by mouth. - methotrexate 2.5 mg tablet Take by mouth one time only. Problem List As Of Date: 04/08/2021 (None) Encounter Status:Closed by CYNTHIA OLIVER on 04/16/21 [facility] CBC AUTO DIFFon 11-06-2020 BASO # 0.0 103/ul Normal 0.0-0.1 [facility] Comment on above: Performed By: #### C BC #### [facility] [address] [place] [address] Dr. Maricarmen Barrett Basophils/100 WBC (Bld) 0.3 % Normal 0.2-2.0 [facility] Comment on above: Performed By: #### C BC #### [facility] [address] [place] [address] Dr. Maricarmen Barrett EO # 0.2 103/ul Normal 0.0-0.7 [facility] Comment on above: Performed By: #### C BC #### [facility] [address] [place] [address] Dr. Maricarmen Barrett Eosinophils/100 WBC (Bld) 4.3 % Normal 0.9-7.0 [facility] Comment on above: Performed By: #### C BC #### [facility] [address] [place] [address] Dr. Maricarmen Barrett Erythrocyte distribution width (RBC) [Ratio] 14.9 % Normal 11.0-15.0 [facility] Comment on above: Performed By: #### C BC #### [facility] [address] [place] [address] Dr. aMricarmen Barrett Hematocrit (Bld) [Volume fraction] 44.1 % Normal 42.0-54.0 [facility] Comment on above: Performed By: #### C BC #### [facility] [address] [place] [address] Dr. Maricarmen Barrett Hemoglobin (Bld) [Mass/Vol] 14.8 g/dL Normal 14.0-18.0 [facility] Comment on above: Performed By: #### C BC #### [facility] [address] [place] [address] Dr. Maricarmen Barrett IG # 0.00 10e3/ul Normal 0.00-0.03 [facility] Comment on above: Performed By: #### C BC #### [facility] [address] [place] [address] Dr. Maricarmen Barrett IG % 0.0 % Normal 0.0-0.5 [facility] Comment on above: Performed By: #### C BC #### [facility] [address] [place] [address] Dr. Maricarmen Barrett LYMPH # 1.5 103/ul Normal 1.2-3.8 [facility] Comment on above: Performed By: #### C BC #### [facility] [address] [place] [address] Dr. Maricarmen Barrett Lymphocytes/100 WBC (Bld) 37.2 % Normal 20.5-60.0 [facility] Comment on above: Performed By: #### C BC #### [facility] [address] [place] [address] Dr. Maricarmen Barrett MANUAL DIFF REQ NO Normal [facility] Comment on above: Performed By: #### C BC #### [facility] [address] [place] [address] Dr. Maricarmen Barrett MCH (RBC) [Entitic mass] 30.9 pg Normal 25.9-34.0 [facility] Comment on above: Performed By: #### C BC #### [facility] [address] [place] [address] Dr. Maricarmen Barrett MCHC (RBC) [Mass/Vol] 33.6 g/dL Normal 29.9-35.2 [facility] Comment on above: Performed By: #### C BC #### [facility] [address] [place] [address] Dr. Maricarmen Barrett MCV (RBC) [Entitic vol] 92.1 fL Normal 80.0-94.0 [facility] Comment on above: Performed By: #### C BC #### [facility] [address] [place] [address] Dr. Maricarmen Barrett MONO # 0.5 103/ul Normal 0.3-0.8 [facility] Comment on above: Performed By: #### C BC #### [facility] [address] [place] [address] Dr. Maricarmen Barrett Monocytes/100 WBC (Bld) 13.5 % Critically high 1.7-12. 0 [facility] Comment on above: Performed By: #### C BC #### [facility] [address] [place] [address] Dr. Maricarmen Barrett NEUT # 1.8 103/ul Normal 1.4-6.5 [facility] Comment on above: Performed By: #### C BC #### [facility] [address] [place] [address] Dr. Maricarmen Barrett Neutrophils/100 WBC (Bld) 44.7 % Normal 43.0-75.0 [facility] Comment on above: Performed By: #### C BC #### [facility] [address] [place] [address] Dr. Maricarmen Barrett Platelet mean volume (Bld) [Entitic vol] 10.7 fL Normal 9.5-13.5 [facility] Comment on above: Performed By: #### C BC #### [facility] [address] [place] [address] Dr. Maricarmen Barrett PLT 141 103/ul Critically low 150-450 [facility] Comment on above: Performed By: #### C BC #### [facility] [address] [place] [address] Dr. Maricarmen Barrett RBC 4.79 106/ul Normal 4.70-6.10 [facility] Comment on above: Performed By: #### C BC #### [facility] [address] [address] [address] Maricarmen Barrett WBC 3.9 103/ul Critically low 4.0-11.0 [facility] Comment on above: Performed By: #### C BC #### [facility] [address] [address] [address] Maricarmen Barrett LIPID PROFILEon 11-06-2020 CHOL-HDL RATIO NORM SEE BELOW Normal [facility] Comment on above: Result Comment: 3.3 - 4.4 LOW RISK 4.4 - 7.1 AVERAGE RISK 7.1 - 11.0 MODERATE RISK >11.0 HIGH RISK Performed By: #### B MP, LIPID #### [facility] [address] [place] [address] Dr. Maricarmen Barrett Cholesterol [Mass/Vol] 207 mg/dL Critically high <=200 [facility] Comment on above: Performed By: #### B MP, LIPID #### [facility] [address] [place] [address] Dr. Maricarmen Barrett Cholesterol in HDL [Mass/Vol] 61 mg/dL Normal [facility] Comment on above: Performed By: #### B MP, LIPID #### [facility] [address] [place] [address] Dr. Maricarmen Barrett Cholesterol in LDL [Mass/Vol] 132.2 mg/dL Normal [facility] Comment on above: Performed By: #### B MP, LIPID #### [facility] [address] [place] [address] Dr. Maricarmen Barrett Cholesterol.total/Choles terol in HDL [Mass ratio] 3.4 {ratio} Normal [facility] Comment on above: Performed By: #### B MP, LIPID #### [facility] [address] [place] [address] Dr. Maricarmen Barrett HDL NORMAL > or = 60 mg/dl - LO W CARDIOVASCULAR RISK <40 mg/dl - HIGH CARDIOVASCULAR RISK Normal [facility] Comment on above: Performed By: #### B MP, LIPID #### [facility] [address] [address] [address] Maricarmen Barrett LDL CALC NORMAL SEE BELOW Normal [facility] Comment on above: Result Comment: <100 mg/dl OPTIMAL 100 - 129 mg/dl NEAR OR ABOVE OPTIMAL 130 - 159 mg/dl BORDERLINE HIGH 160 - 189 mg/dl HIGH >190 mg/dl VERY HIGH Performed By: #### B MP, LIPID #### [facility] [address] [address] [address] Maricarmen Barrett Triglyceride [Mass/Vol] 69 mg/dL Normal <=150 [facility] Comment on above: Performed By: #### B MP, LIPID #### [facility] [address] [address] [address] Maricarmen Barrett VLDL CALC 13.8 mg/dL Normal [facility] Comment on above: Performed By: #### B MP, LIPID #### [facility] [address] [place] [address] Dr. Maricarmen Barrett PROF CHEM 8 (BAS METB)on Anion gap [Moles/Vol] 10.5 mmol/L Normal [facility] Comment on above: Performed By: #### B MP, LIPID #### [facility] [address] [address] [address] Maricarmen Barrett Calcium [Mass/Vol] 9.7 mg/dL Normal 8.4-10.2 [facility] Comment on above: Performed By: #### B MP, LIPID #### [facility] [address] [address] [address] Maricarmen Barrett Chloride [Moles/Vol] 103 mmol/L Normal 98-107 [facility] Comment on above: Performed By: #### B MP, LIPID #### [facility] [address] [address] [address] Maricarmen Barrett CO2 [Moles/Vol] 27.3 mmol/L Normal 22.0-30.0 [facility] Comment on above: Performed By: #### B MP, LIPID #### [facility] [address] [address] [address] Maricarmen Barrett Creatinine [Mass/Vol] 0.80 mg/dL Normal 0.66-1.25 [facility] Comment on above: Performed By: #### B MP, LIPID #### [facility] [address] [address] [address] Maricarmen Barrett EGFR-AF ANGOLAN >60 Normal >=60 [facility] Comment on above: Performed By: #### B MP, LIPID #### [facility] [address] [address] [address] Maricarmen Barrett EGFR-NON AF ANGOLAN >60 Normal >=60 [facility] Comment on above: Performed By: #### B MP, LIPID #### [facility] [address] [address] [address] Maricarmen Barrett Glucose [Mass/Vol] 97 mg/dL Normal 74-106 [facility] Comment on above: Performed By: #### B MP, LIPID #### [facility] [address] [address] [address] Maricarmen Barrett Potassium [Moles/Vol] 3.8 mmol/L Normal 3.4-5.0 [facility] Comment on above: Performed By: #### B MP, LIPID #### [facility] [address] [address] [address] Maricarmen Barrett Sodium [Moles/Vol] 137 mmol/L Normal 137-145 [facility] Comment on above: Performed By: #### B MP, LIPID #### [facility] [address] [address] [address] Maricarmen Barrett Urea nitrogen [Mass/Vol] 15.0 mg/dL Normal 9.0-20.0 [facility] Comment on above: Performed By: #### B MP, LIPID #### [facility] [address] [address] [address] Maricarmen Barrett Urea nitrogen/Creatinine [Mass ratio] 18.8 mg/mg Normal [facility] Comment on above: Performed By: #### B MP, LIPID #### [facility] [address] [address] [address] Maricarmen Barrett Audiology Office/Clinic Note on 04-13-2021 Audiology Office/Clinic Note Patient seen for hearing aid recheck. He denied any new concerns regarding the hearing aids. He denied any change in hearing since his last evaluation. He does indicate that he has chosen to remain at home for the most part during the COVID-19 pandemic; therefore, he did not return for his last routine 6 month recheck appointment. He recognizes that his aids likely need to be cleaned and checked. Otoscopy was unremarkable, bilaterally. Hearing aids were cleaned, and tubing and earhooks were replaced. Listening check good. Patient did not request any programming changes today. No further concerns. Plan: Return in 6 months for hearing aid recheck, or sooner if concerns arise. $25. Electronically signed by Omaira Leblanc 05/22/20 08:53 EDT Normal [facility] Vital Signs Date Time Vital Sign Value Performing Clinician Facility 07-13-2024 13:59-0400 Body height 193.04 cm [facility] Work Phone: [facility] 07-13-2024 13:59-0400 Body mass index (BMI) [Ratio] 23.1 kg/m2 [facility] Work Phone: [facility] 07-13-2024 13:59-0400 Body weight 86.18 kg [facility] Work Phone: [facility] 07-13-2024 13:59-0400 Diastolic blood pressure 75 mm[Hg] [employer] DO Work Phone: [facility] 07-13-2024 13:59-0400 Heart rate 98 /min [employer] Work Phone: [facility] 07-13-2024 13:59-0400 Respiratory rate 12 /min [facility] Work Phone: [facility] 07-13-2024 13:59-0400 SaO2% (BldA) [Mass fraction] 97 % [employer] DO Work Phone: [facility] 07-13-2024 13:59-0400 Systolic blood pressure 131 mm[Hg] Duarte Ball DO Work Phone: [facility] 06-06-2024 14:40-0400 Diastolic blood pressure 76 mm[Hg] Duarte Ball DO Work Phone: [facility] 06-06-2024 14:40-0400 Heart rate 85 /min Duarte Ball DO Work Phone: [facility] 06-06-2024 14:40-0400 Respiratory rate 16 /min Duarte Ball DO Work Phone: [facility] 06-06-2024 14:40-0400 SaO2% (BldA) [Mass fraction] 95 % Duarte Ball DO Work Phone: [facility] 06-06-2024 14:40-0400 Systolic blood pressure 117 mm[Hg] Duarte Ball DO Work Phone: [facility] 06-06-2024 12:48-0400 Body height 193.04 cm Durate Ball DO Work Phone: [facility] 06-06-2024 12:48-0400 Body weight 83.91 kg Duarte Ball DO Work Phone: [facility] 05-23-2024 08:38-0400 Body height 187.96 cm Duarte Ball DO Work Phone: [facility] 05-23-2024 08:38-0400 Body mass index (BMI) [Ratio] 24.4 kg/m2 Duarte Ball DO Work Phone: [facility] 05-23-2024 08:38-0400 Body weight 86.35 kg Duarte Ball DO Work Phone: [facility] 05-23-2024 08:38-0400 Diastolic blood pressure 85 mm[Hg] Duarte Ball DO Work Phone: [facility] 05-23-2024 08:38-0400 Heart rate 114 /min Duarte Ball DO Work Phone: [facility] 05-23-2024 08:38-0400 Respiratory rate 12 /min Duarte Ball DO Work Phone: [facility] 05-23-2024 08:38-0400 Systolic blood pressure 143 mm[Hg] Duarte Ball DO Work Phone: [facility] 04-20-2024 12:04-0400 Body height 187.96 cm Duarte Ball DO Work Phone: [facility] 04-20-2024 12:04-0400 Body mass index (BMI) [Ratio] 25.2 kg/m2 Duarte Ball DO Work Phone: [facility] 04-20-2024 12:04-0400 Body temperature 97.3 [degF] Duarte Ball DO Work Phone: [facility] 04-20-2024 12:04-0400 Body weight 88.96 kg Duarte Ball DO Work Phone: [facility] 04-20-2024 12:04-0400 Diastolic blood pressure 88 mm[Hg] Duarte Ball DO Work Phone: [facility] 04-20-2024 12:04-0400 Heart rate 108 /min Duarte Ball DO Work Phone: [facility] 04-20-2024 12:04-0400 Respiratory rate 20 /min Duarte Ball DO Work Phone: [facility] 04-20-2024 12:04-0400 Systolic blood pressure 140 mm[Hg] Duarte Ball DO Work Phone: [facility] 11-18-2023 13:20-0400 Body height 187.96 cm MD Clarke Bertrand Work Phone: [facility] 11-18-2023 13:20-0400 Body mass index (BMI) [Ratio] 25.7 kg/m2 MD Clarke Bertrand Work Phone: [facility] 11-18-2023 13:20-0400 Body weight 90.71 kg MD Clarke Bertrand Work Phone: [facility] 11-18-2023 13:20-0400 Diastolic blood pressure 77 mm[Hg] MD Clarke Bertrand Work Phone: [facility] 11-18-2023 13:20-0400 Heart rate 87 /min MD Clarke Bertrand Work Phone: [facility] 11-18-2023 13:20-0400 Systolic blood pressure 130 mm[Hg] MD Clarke Bertrand Work Phone: [facility] 11-12-2023 08:37-0400 Body height 187.96 cm MD Clarke Bertrand Work Phone: [facility] 11-12-2023 08:37-0400 Body mass index (BMI) [Ratio] 25.4 kg/m2 MD Clarke Bertrand Work Phone: [facility] 11-12-2023 08:37-0400 Body weight 90.03 kg MD Clarke Bertrand Work Phone: [facility] 11-12-2023 08:37-0400 Diastolic blood pressure 68 mm[Hg] MD Clarke Bertrand Work Phone: [facility] 11-12-2023 08:37-0400 Heart rate 54 /min MD Clarke Bertrand Work Phone: [facility] 11-12-2023 08:37-0400 Respiratory rate 12 /min MD Clarke Bertrand Work Phone: [facility] 11-12-2023 08:37-0400 Systolic blood pressure 116 mm[Hg] MD Clarke Bertrand Work Phone: [facility] 05-12-2023 08:35-0400 Body height 187.96 cm DO Duarte Ball Work Phone: [facility] 05-12-2023 08:35-0400 Body mass index (BMI) [Ratio] 26.1 kg/m2 DO Duarte Ball Work Phone: [facility] 05-12-2023 08:35-0400 Body weight 92.22 kg DO Duarte Ball Work Phone: [facility] 05-12-2023 08:35-0400 Diastolic blood pressure 80 mm[Hg] DO Duarte Ball Work Phone: [facility] 05-12-2023 08:35-0400 Heart rate 88 /min DO Duarte Ball Work Phone: [facility] 05-12-2023 08:35-0400 Respiratory rate 12 /min DO Duarte Ball Work Phone: [facility] 05-12-2023 08:35-0400 Systolic blood pressure 133 mm[Hg] DO Duarte Ball Work Phone: [facility] 11-24-2022 08:38-0400 Body height 190.5 cm Cynthia Oliver MD Work Phone: [facility] 11-24-2022 08:38-0400 Body weight 89.36 kg Cynthia Oliver MD Work Phone: [facility] 11-24-2022 08:38-0400 Diastolic blood pressure 86 mm[Hg] Cynthia Oliver MD Work Phone: [facility] 11-24-2022 08:38-0400 Heart rate 86 /min Cynthia Oliver MD Work Phone: [facility] 11-24-2022 08:38-0400 Systolic blood pressure 120 mm[Hg] Cynthia Oliver MD Work Phone: [facility] 11-19-2022 15:00-0400 Body height 187.96 cm Vickey Moeller Other [employer] Other 11-19-2022 15:00-0400 Body mass index (BMI) [Ratio] 25.24 kg/m2 Vickey Moeller Other [employer] Other 11-19-2022 15:00-0400 Body weight 89.18 kg Vickey Moeller Other [employer] Other 11-19-2022 15:00-0400 Diastolic blood pressure 88 mm[Hg] Vickey Moeller Other [employer] Other 11-19-2022 15:00-0400 Systolic blood pressure 147 mm[Hg] Vickey Moeller Other [employer] Other 11-10-2022 09:00-0400 Body height 187.96 cm Duarte Ball Other [employer] Other 11-10-2022 09:00-0400 Body mass index (BMI) [Ratio] 25.24 kg/m2 Duarte Ball Other [employer] Other 11-10-2022 09:00-0400 Body weight 89.18 kg Duarte Ball Other [employer] Other 11-10-2022 09:00-0400 Diastolic blood pressure 96 mm[Hg] Duarte Ball Other [employer] Other 11-10-2022 09:00-0400 Respiratory rate 12 /min Duarte Ball Other [employer] Other 11-10-2022 09:00-0400 Systolic blood pressure 153 mm[Hg] Duarte Ball Other [employer] Other 05-07-2022 11:00-0400 Body height 187.96 cm Duarte Ball Other [employer] Other 05-07-2022 11:00-0400 Body mass index (BMI) [Ratio] 25.52 kg/m2 Duarte Ball Other [facility] [employer] Other 05-07-2022 11:00-0400 Body weight 90.18 kg Duarte Ball Other [facility] [employer] Other 05-07-2022 11:00-0400 Diastolic blood pressure 91 mm[Hg] Duarte Ball Other [facility] [employer] Other 05-07-2022 11:00-0400 Respiratory rate 12 /min Duarte Ball Other [facility] [employer] Other 05-07-2022 11:00-0400 Systolic blood pressure 150 mm[Hg] Duarte Ball Other [facility] [employer] Other 09-17-2021 13:18-0400 Diastolic blood pressure 95 mm[Hg] DO Duarte Ball Work Phone: [facility] 09-17-2021 13:18-0400 Heart rate 70 /min DO Duarte Ball Work Phone: [facility] 09-17-2021 13:18-0400 Respiratory rate 16 /min DO Duarte Ball Work Phone: [facility] 09-17-2021 13:18-0400 SaO2% (BldA) [Mass fraction] 97 % DO Duarte Ball Work Phone: [facility] 09-17-2021 13:18-0400 Systolic blood pressure 144 mm[Hg] DO Duarte Ball Work Phone: [facility] 09-17-2021 11:25-0400 Body height 185.42 cm DO Duarte Ball Work Phone: [facility] 09-17-2021 11:25-0400 Body temperature 97.9 [degF] DO Duarte Ball Work Phone: [facility] 09-17-2021 11:25-0400 Body weight 86.18 kg DO Duarte Ball Work Phone: [facility] 09-06-2021 08:34-0400 Body weight 87.59 kg Cynthia Oliver MD Work Phone: [facility] 09-06-2021 08:34-0400 Diastolic blood pressure 88 mm[Hg] Cynthia Oliver MD Work Phone: [facility] 09-06-2021 08:34-0400 Heart rate 98 /min Cynthia Oliver MD Work Phone: [facility] 09-06-2021 08:34-0400 Systolic blood pressure 145 mm[Hg] Cynthia Olievr MD Work Phone: [facility] Encounters Encounter Date Encounter Type Care Provider Facility Start: 07-13-2024 End: 07-13-2024 ambulatory Duarte Ball DO Work Phone: [facility] Work Phone: Start: 07-13-2024 End: 07-13-2024 Patient encounter procedure Duarte Ball DO Work Phone: [facility] Work Phone: Start: 07-07-2024 Non-patient / Non-visit Duarte Ball DO Work Phone: [facility] Work Phone: Start: 07-07-2024 Non-patient / Non-visit Duarte Ball DO Work Phone: [facility] Work Phone: Start: 07-06-2024 Non-patient / Non-visit Duarte Ball DO Work Phone: [facility] Work Phone: Start: 07-05-2024 Non-patient / Non-visit Duarte Ball DO Work Phone: [facility] Work Phone: Start: 07-04-2024 Non-patient / Non-visit Duarte Ball DO Work Phone: [facility] Work Phone: Start: 07-03-2024 End: 07-03-2024 ambulatory Duarte Ball DO Work Phone: [facility] Work Phone: Start: 07-03-2024 End: 07-03-2024 Departed Referred Duarte Ball DO Work Phone: [facility] Start: 07-03-2024 Non-patient / Non-visit Duarte Ball DO Work Phone: [facility] Work Phone: Start: 06-06-2024 Non-patient / Non-visit Duarte Ball DO Work Phone: [facility] Work Phone: Start: 06-06-2024 End: 06-06-2024 Admission to same day surgery center Duarte Ball DO Work Phone: [facility] Work Phone: Start: 06-06-2024 End: 06-06-2024 ambulatory Duarte Ball DO Work Phone: [facility] Work Phone: Start: 05-30-2024 Non-patient / Non-visit Duarte Ball DO Work Phone: [facility] Work Phone: Start: 05-23-2024 End: 05-23-2024 ambulatory Duarte Ball DO Work Phone: [facility] Work Phone: Start: 05-23-2024 End: 05-23-2024 Patient encounter procedure Duarte Ball DO Work Phone: [facility] Work Phone: Start: 05-11-2024 End: 05-11-2024 Patient encounter procedure Duarte Ball DO Work Phone: [facility] [address] Work Phone: Start: 05-11-2024 End: 05-11-2024 ambulatory Duarte Ball DO Work Phone: [facility] Work Phone: Start: 04-20-2024 End: 04-20-2024 ambulatory Duarte Ball DO Work Phone: [facility] Work Phone: Start: 04-20-2024 End: 04-20-2024 Patient encounter procedure Duarte Ball DO Work Phone: [facility] Work Phone: Start: 02-24-2024 End: 02-24-2024 Patient encounter procedure Duarte Ball DO Work Phone: [facility] [address] Work Phone: Start: 02-24-2024 End: 02-24-2024 ambulatory Duarte Ball DO Work Phone: [facility] Work Phone: Start: 12-30-2023 End: 12-30-2023 Patient encounter procedure Duarte Ball DO Work Phone: [facility] [address] Work Phone: Start: 12-30-2023 End: 12-30-2023 ambulatory Duarte Ball DO Work Phone: [facility] Work Phone: Start: 11-18-2023 End: 11-18-2023 ambulatory MD Clarke Bertrand Work Phone: [facility] Work Phone: Start: 11-18-2023 End: 11-18-2023 Patient encounter procedure MD Clarke Bertrand Work Phone: [facility] Work Phone: Start: 11-12-2023 End: 11-12-2023 ambulatory MD Clarke Bertrand Work Phone: [facility] Work Phone: Start: 11-12-2023 End: 11-12-2023 Patient encounter procedure MD Clarke Bertrand Work Phone: [facility] Work Phone: Start: 11-09-2023 Patient encounter procedure MD Clarke Bertrand Work Phone: [facility] Start: 09-09-2023 End: 09-09-2023 Patient encounter procedure DO Evangelista Bedocs Work Phone: [facility] [address] Work Phone: Start: 09-09-2023 End: 09-09-2023 ambulatory Clarke Bertrand [facility] Work Phone: Start: 07-15-2023 End: 07-15-2023 Patient encounter procedure DO Duarte Ball Work Phone: [facility] [address] Work Phone: Start: 07-15-2023 End: 07-15-2023 ambulatory DO Duarte Ball Work Phone: [facility] Work Phone: Start: 06-30-2023 End: 06-30-2023 ambulatory DO Duarte Ball Work Phone: [facility] Work Phone: Start: 06-30-2023 End: 06-30-2023 Departed Referred DO Duarte Ball Work Phone: [facility] [address] [place] Work Phone: Start: 05-21-2023 End: 05-21-2023 ambulatory DO Duarte Ball Work Phone: [facility] Work Phone: Start: 05-21-2023 End: 05-21-2023 Patient encounter procedure DO Duarte Ball Work Phone: [facility] Work Phone: Start: 05-12-2023 End: 05-12-2023 ambulatory DO Duarte Ball Work Phone: [facility] Work Phone: Start: 05-12-2023 End: 05-12-2023 Patient encounter procedure DO Duarte Ball Work Phone: [facility] Work Phone: Start: 03-25-2023 End: 03-25-2023 ambulatory DO Duarte Ball Work Phone: [facility] Work Phone: Start: 03-25-2023 End: 03-25-2023 Patient encounter procedure DO Duarte Ball Work Phone: [facility] [address] Work Phone: Start: 03-03-2023 End: 03-03-2023 ambulatory Vickye Moeller Other [employer] Other Start: 03-03-2023 Telephone encounter Vickey Moeller [facility] Start: 01-28-2023 End: 01-28-2023 ambulatory DO Duarte Ball Work Phone: [facility] Work Phone: Start: 01-28-2023 End: 01-28-2023 Patient encounter procedure DO Duarte Ball Work Phone: [facility] [address] Work Phone: Start: 12-03-2022 End: 12-03-2022 ambulatory DO Duarte Ball Work Phone: [facility] Work Phone: Start: 12-03-2022 End: 12-03-2022 Patient encounter procedure DO Duarte Ball Work Phone: [facility] [address] Work Phone: Start: 11-24-2022 End: 11-24-2022 ambulatory CYNTHIA OLIVER Facility:[facility] Start: 11-24-2022 End: 11-24-2022 Patient encounter procedure Cynthia Oliver MD Work Phone: Cardiology Comment on above: History of loop jorge rder (Primary Dx) Start: 11-19-2022 End: 11-19-2022 ambulatory Vickey Lacyronakjakob Other [employer] Other Start: 11-19-2022 Patient encounter procedure Vickey Moeller [facility] Start: 11-10-2022 End: 11-10-2022 ambulatory Duarte Herrmann Other [employer] Other Start: 11-10-2022 Patient encounter procedure Duarte Herrmann [facility] Start: 11-04-2022 End: 11-04-2022 ambulatory Duarte Herrmann Other [employer] Other Start: 11-04-2022 Telephone encounter Duarte Herrmann [facility] Start: 10-08-2022 End: 10-08-2022 ambulatory DO Duarte Ball Work Phone: [facility] Work Phone: Start: 10-08-2022 End: 10-08-2022 Patient encounter procedure DO Duarte Ball Work Phone: [facility] [address] Work Phone: Start: 06-18-2022 End: 06-18-2022 ambulatory DO Duarte Ball Work Phone: [facility] Work Phone: Start: 06-18-2022 End: 06-18-2022 Patient encounter procedure DO Duarte Ball Work Phone: [facility] [address] Work Phone: Start: 06-10-2022 End: 06-10-2022 ambulatory Duarte Ball Other [employer] Other Start: 06-10-2022 Telephone encounter [facility] Start: 05-07-2022 End: 05-07-2022 ambulatory Duarte Herrmann Other [employer] Other Start: 05-07-2022 Office outpatient visit 25 minutes Duarte Herrmann [facility] Start: 04-23-2022 End: 04-23-2022 Patient encounter procedure DO Duarte Ball Work Phone: [facility] [address] Work Phone: Start: 02-28-2022 End: 02-28-2022 ambulatory Duarte Herrmann Other [employer] Other Start: 02-28-2022 Telephone encounter [facility] Start: 02-05-2022 Adult health examination Duarte Herrmann Other [employer] Other Start: 01-08-2022 End: 01-08-2022 ambulatory Vickey Moeller Other [employer] Other Start: 01-08-2022 Telephone encounter Vickey [facility] Start: 12-10-2021 End: 12-10-2021 ambulatory DO Duarte Herrmann Work Phone: [facility] Work Phone: Start: 12-10-2021 End: 12-10-2021 Patient encounter procedure DO Duarte Herrmann Work Phone: [facility] [address] Start: 10-17-2021 End: 10-17-2021 Patient encounter procedure DO Duarte Herrmann Work Phone: [facility] [address] Start: 09-17-2021 End: 09-17-2021 Admission to same day surgery center DO Duarte Herrmann Work Phone: [facility] Start: 09-13-2021 End: 09-13-2021 Patient encounter procedure DO Duarte Herrmann Work Phone: [facility] Start: 09-06-2021 End: 09-06-2021 Patient encounter procedure Cynthia Oliver MD Work Phone: Cardiology Comment on above: Status post placemen t of implantable loop recorder (Primary Dx) Start: 08-22-2021 End: 08-22-2021 Patient encounter procedure DO Duarte Herrmann Work Phone: [facility] [address] Start: 07-22-2021 Telephone encounter Cynthia Oliver MD Work Phone: [facility] Adult Comment on above: Results Start: 05-15-2021 Telephone encounter Cynthia Oliver MD Work Phone: Cardiology Comment on above: Appointment Start: 11-06-2020 End: 11-07-[address] DUARTE HERRMANN Facility: Start: 01-28-2018 End: 01-29-2018 Patient encounter procedure DEFAULT PHYSICIAN Facility:[facility] Procedures Date Procedure Procedure Detail Performing Clinician Start: 07-03-2024 Anaerobe Identification Only Duarte Killian maria luz DO Work Phone: Start: 07-03-2024 Urine culture Duarte Herrmann DO Work Phone: Start: 06-06-2024 Esophagogastroduodenoscopy Duarte Montez DO Work Phone: Start: 06-30-2023 Aerobic microbial culture DO Duarte Killian maria luz Work Phone: Start: 05-21-2023 Plain X-ray of right shoulder DO Karely baca Montez Work Phone: Start: 09-17-2021 Esophagogastroduodenoscopy DO Duarte B all Work Phone: Start: 11-06-[address] DUARTE HERRMANN Comment on above: Performed By: #### PSASC #### [facility] [address] [place] [address] Dr. Maricarmen Barrett Start: 02-11-2018 Screening for malignant neoplasm of prostate Duarte Herrmann Other Start: 02-17-2017 General examination of patient Duarte Herrmann Other Depression screening Karely Herrmann Other H/O: surgery History of loop recorder Cynthia Oliver MD Work Phone: Screening for malign ant neoplasm of prostate Duarte Herrmann Other Plan of Treatment Date Care Activity Detail Author Start: 07-03-2024 Urine culture [facility] Start: 07-03-2024 Bacteria identified in Urine by Culture Urine Culture [facility] Start: 06-06-2024 [facility] Start: 06-30-2023 Superficial Wound Culture Superficial Wound Culture [facility] Start: 05-21-2023 Plain X-ray of right shoulder XR shoulder RT min 2V* [facility] Start: 05-21-2023 XR Shoulder - right Views [facility] Start: 10-27-2022 Covid-19 Vaccine () Covid-19 Vaccine () [facility] Start: 02-09-2022 Advance Directive Discussion Advance Directive Discussion [facility] Start: 02-09-2022 Depression Assessment Depression Assessment [facility] Start: 2021 Influenza vaccination [facility] Start: 09-26-2021 COVID-19 VACCINE (5 - Booster for Pfizer series) COVID-19 VACCINE (5 - Booster for Pfizer series) [facility] Start: 09-17-2021 [facility] Start: 09-17-2021 Esophagogastroduodenoscopy DH EGD (Not Applicable) [facility] Start: 09-17-2021 End: 09-17-2021 Admission to same day surgery center Departed [facility] Start: 02-15-2021 COVID-19 VACCINE (4 - Booster for Pfizer series) COVID-19 VACCINE (4 - Booster for Pfizer series) [facility] Start: 02-09-2021 ADVANCE DIRECTIVE DISCUSSION ADVANCE DIRECTIVE DISCUSSION [facility] Start: 08-02-2016 DIABETES SCREEN DIABETES SCREEN [facility] Start: 08-02-2016 Diabetes Screening Diabetes Screening [facility] Start: 2006 PNEUMOVAX AGE 65 AND OVER WITH 5YR LOOKBACK (#1) PNEUMOVAX AGE 65 AND OVER WITH 5YR LOOKBACK (#1) [facility] Start: 10-11-1991 SHINGRIX VACCINE (1 of 2) SHINGRIX VACCINE (1 of 2) [facility] Start: 1960 SHINGRIX VACCINE (1 of 2) SHINGRIX VACCINE (1 of 2) [facility] Start: 1960 Urine microalbumin profile [facility] Start: 1953 Adult depression screening assessment DEPRESSION SCREENING [facility] Start: 10-11-1947 Pneumococcal Vaccine: 65+ (1 - PCV) Pneumococcal Vaccine: 65+ (1 - PCV) [facility] Start: 10-11-1947 PNEUMOCOCCAL: 65+ (1 - PCV) PNEUMOCOCCAL: 65+ (1 - PCV) [facility] EKG 12 channel panel [facility] Patient Education Duron's esop hagus Hiatal hernia - Discharge instructions Know your Meds [facility] Work Phone: Thyroid stimulating immunoglobulins actual/normal in Serum [facility] Immunizations Immunization Date Immunization Notes Care Provider Arash singh 11-12-2023 influenza, high dose seasonal, preservative-free MD Clarke Bertrand Work Phone: [facility] 11-10-2022 influenza virus vaccine, unspecified formulation DO Duarte Herrmann Work Phone: [facility] 11-10-2022 influenza, high dose seasonal, preservative-free Duarte Herrmann Other [employer] [facility] [employer] Other 11-10-2022 Prevnar 20 Duarte Herrmann Other [facility] 09-01-2022 COVID-19 Pfizer (bivalent) Duarte Herrmann Other [facility] 11-07-2021 influenza virus vaccine, split virus (incl. purified surface antigen) Duarte Herrmann Other [employer] [facility] [employer] Other 11-07-2021 influenza virus vaccine, unspecified formulation DO Duarte Herrmann Work Phone: [facility] 11-06-2020 influenza virus vaccine, split virus (incl. purified surface antigen) Duarte Herrmann Other [facility] [employer] Other 11-06-2020 influenza virus vaccine, unspecified formulation DO Duarte Herrmann Work Phone: [facility] 04-12-2020 COVID-19 vaccine, ag e 12+ yr (PFIZER-BIONTECH - PURPLE TOP) Cynthia Oliver MD Work Phone: [facility] 03-22-2020 COVID-19 vaccine, ag e 12+ yr (PFIZER-BIONTECH - PURPLE TOP) Cynthia Oliver MD Work Phone: [facility] 11-16-2019 influenza (aIIV4) vaccine, age 65+ yr, quadrivalent, PF (FLUAD QUADRIVALENT) Cynthia Oliver MD Work Phone: [facility] 11-18-2017 influenza virus vaccine, split virus (incl. purified surface antigen) Duaret Herrmann Other [facility] [employer] Other 11-18-2017 influenza virus vaccine, unspecified formulation DO Duarte Herrmann Work Phone: [facility] 12-23-2015 influenza virus vaccine, split virus (incl. purified surface antigen) Duarte Herrmann Other [facility] [employer] Other 12-23-2015 influenza virus vaccine, unspecified formulation DO Duarte Herrmann Work Phone: [facility] 02-21-2015 pneumococcal conjuga te vaccine, 13 valent Duarte Herrmann Other [facility] 02-21-2015 pneumococcal Conjuga te, unspecified formulation; Translations: [Need for prophylactic vaccination against Streptococcus pneumoniae (pneumococcus)] Duarte Herrmann Other [facility] [employer] Other 11-25-2013 tetanus and diphther ia toxoids, adsorbed, preservative free, for adult use (5 Lf of tetanus toxoid and 2 Lf of diphtheria toxoid) Duarte Herrmann Other [facility] 10-13-2012 tetanus and diphther ia toxoids, adsorbed, preservative free, for adult use (5 Lf of tetanus toxoid and 2 Lf of diphtheria toxoid) Duarte Herrmann Other [facility] 07-07-2012 tetanus toxoid, redu matias diphtheria toxoid, and acellular pertussis vaccine, adsorbed Vickey Moeller Other [facility] [employer] Other 07-07-2012 tetanus and diphther ia toxoids, adsorbed, preservative free, for adult use (5 Lf of tetanus toxoid and 2 Lf of diphtheria toxoid) DO Duarte Herrmann Work Phone: [facility] 01-12-2002 pneumococcal polysaccharide vaccine, 23 valent Duarte Herrmann Other [facility] Payers Date Payer Category Payer Unknown [id number] 2023 Self-pay [id number] 2019 Unknown 2019 Unknown [employer] [place] [employer] [place] MEDICARE SUPPLEMENT [id number] 2019-Present [phone] [id number] [place] [address] Indemnity [id number] 2006 Medicare MEDICARE MEDICAR E A AND B [id number] 2006-Present [phone] [address] [address] [place] [address] Medicare [id number] 2006 Medicare MEDICARE MEDICAR E A AND B [id number] 2006-Present [phone] [place] [address] Medicare [id number] 1959 Medicare [id number] 1959 Unknown [id number] 1941 Unknown [id number] 1941 Unknown [id number] 3 Unknown Margareth BC/BS [id number] Unknown [id number] 1 Unknown [id number] 1 Unknown [id number] 1 Unknown [id number] 1 Unknown [id number] 1 Unknown [id number] 1 Unknown [id number] 1 Social History Date Type Detail Facility Start: 07-21-2013 End: 08-25-2023 Tobacco smoking status NHIS Never smoked tobacco [facility] Start: 07-21-2013 Tobacco use and exposure Smokeless tobacco non-user [facility] Start: 09-11-2020 End: 11-24-2022 Alcohol intake Current drinker of alcohol (finding) [facility] Start: 1940 Sex Assigned At Not on file [facility] Start: 04-12-2021 End: 09-06-2021 Exposure to SARS-CoV-2 (event) Not sure [facility] Start: 06-29-2021 End: 07-09-2021 Exposure to SARS-CoV-2 (event) Unable to assess [facility] Start: 1940 Sex Assigned At Male F [facility] Start: 03-07-2022 End: 11-24-2022 Sex Assigned At [facility] [employer] Other Start: 03-07-2022 End: 11-24-2022 History of Social function [facility] National Score (1-100), lower number is lower risk 58 [facility] Start: 12-31-2023 End: 07-13-2024 Sex Male (finding) [facility] Goals Date Patient Goal Desired Activity /State Clinical Notes 05-10-2018 to 06-06-2024 Note Date & Type Note Facility 06-06-2024 History and physical note [facility] 06-06-2024 Procedure note [facility] 05-11-2024 History and physical note Note Date/Time June 06, 2024 2:43pm [facility] [address] [place] [address] Gastroenterology H&P Signed Patient: Shirley Hart MR#: [id number] : 1940 Acct:[id number] Age/Sex: 83 / M Adm Date: 5 Loc: Room: Type: [facility] Attending Dr: Vickey Moeller MD Copies to: DO Vickey Gonzalez MD~ Date of Service: 06/06/2024 HISTORY & PHYSICAL: Patient's history with special attention to the cardiovascular, pulmonary systems and the current problem was reviewed with the patient immediately prior to the procedure. Present medications and doses reviewed in the EMR. Allergies and pertinent laboratory tests were also reviewedat this time in the EMR. The physical examination, as below, was then performed. 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 On omeprazole 40 twice daily Family history of GI malignancy? no PHYSICAL EXAMINATION Mouth and Pharynx : moist mucus membranes, normal dentition Eyes: EOM intact b/l, normal sclera Pulmonary: normal respiratory effort, able to speak in complete sentences Neurological: alert and oriented x3, moves all extremities Skin: non-jaundiced, warm and dry Abdomen: non-distended,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 Status: Inactive Member Role Status Dates Duarte Herrmann DO Primary Care Provide r, Attending Provider Active Start: May 23, 2024 End: May 23, 2024 Team Status: Active Member Role Status Dates Duarte Herrmann DO Primary Care Provide r, Attending Provider Active Start: May 30, 2024 Team Status: Inactive Member Role Status Dates Duarte Herrmann DO Primary Care Provider Active Start: June 06, 2024 End: June 06, 2024 Vickey Moeller MD Attending Provider Active S tart: June 06, 2024 End: June 06, 2024 Team Status: Active Member Role Status Abhi Herrmann DO Primary Care Provider Active Start: June 06, 2024 Vickey Moeller MD Attending Provider, Other Provider Active Start: June 06, 2024 Team Status: Active Member Role Status Abhi Herrmann DO Primary Care Provider Active Start: July 03, 2024 Gurinder Bartlett DO Attending Provider Active S tart: July 03, 2024 Team Status: Inactive Member Role Status Abhi Herrmann DO Primary Care Provider Active Start: July 03, 2024 End: July 03, 2024 Gurinder Bartlett DO Attending Provider Active S tart: July 03, 2024 End: July 03, 2024 Team Status: Active Member Role Status Abhi Herrmann DO Primary Care Provider Active Start: July 04, 2024 Outside Provider Attending Provider Active Start : July 04, 2024 Team Status: Active Member Role Status Abhi Herrmann DO Primary Care Provider Active Start: July 05, 2024 Outside Provider Attending Provider Active Start : July 05, 2024 Team Status: Active Member Role Status Dates Duarte Herrmann DO Primary Care Provider Active Start: July 06, 2024 Outside Provider Attending Provider Active Start : July 06, 2024 Team Status: Active Member Role Status Abhi Herrmann DO Primary Care Provider Active Start: July 07, 2024 Rex Gates MD Attending Provider Active Star t: July 07, 2024 Team Status: Active Member Role Status Abhi Herrmann DO Primary Care Provider Active Start: July 07, 2024 Gena Plasencia CMA Attending Provider Active Start: July 07, 2024 Team Status: Inactive Member Role Status Dates Duarte Herrmann , DO Primary Care Provide r, Attending Provider Active Start: July 13, 2024 End: July 13, 2024 Goals (unrecognized section and content) Goals may be documented in a n alternate section FOR RECORDS PERTAINING TO PATIENTS WHO ARE OR HAVE BEEN ENROLLED IN A CHEMICAL DEPENDENCY/SUBSTANCEABUSE PROGRAM, SOME INFORMATION MAY BE OMITTED. This clinical summary was aggregated from multiple sources. Caution should be exercised in using it in the provision of clinical care. This summary normalizes information from multiple sources, and as a consequence, information in this document may materially change the coding, format and clinical context of patient data. In addition, data may be omitted in some cases. CLINICAL DECISIONS SHOULD BE BASED ON THE PRIMARY CLINICAL RECORDS. [employer] [facility] provides no warranty or guarantee of the accuracy or completeness of information in this document.
--- NOTE | 2024-08-09 08:21 | CT_ITS ---
The [address] [address] Patient Name: SHIRLEY NIETO MRN: [id number] date: 1940 Sex: M Assigned Patient Location: LAB Current Patient Location: LAB Accession/Order Number: [id number] Exam Date: 08/09/2024 09:27 Report Date: 08/09/2024 09:57 At the request of: HENOK ROGERS DO Procedure: CT chest w con CT CHEST WITH INTRAVENOUS CONTRAST: CLINICAL HISTORY: Follow-up pneumonia. Ground Glass Opacity On Lung Imaging COMPARISON: 07/05/2024 TECHNIQUE: Spiral images were obtained through the chest following intravenous administration of 100 mL of Omnipaque 300. Images were reviewed using both narrow and wide window settings. This CT exam was performed using one or more following dose reduction techniques: Automated exposure control, adjustment of the mA and/or kV according to patient size, or use of iterative reconstruction technique. FINDINGS: The heart is borderline prominent. There is no pericardial effusion. Coronary artery disease is seen. The ascending aorta is mildly ectatic measuring approximately 4 cm in and minor. No dissection is seen. Calcified and noncalcified mediastinal lymph nodes are again noted. There are also calcified right hilar granulomas. There is an asymmetric hypodense nodular structure at the left supraclavicular region lateral to the thyroid measuring approximately 5.1 X 2.0 x 2.4 cm in size. This was also seen on the prior which was performed without contrast. It is uncertain if it is an enlarged lymph node. There is a moderate size hiatal hernia. Multiple old bilateral rib fractures are seen, left greater than right. There is slight dextroscoliotic curvature as well as degenerative changes at the spine. Fibrocalcific scarring is present at the lung apices. Mild interstitial thickening and groundglass density are seen at the lower lobes, greater on the left with some improvement since the prior. The consolidation at the left posterior costophrenic angle has also resolved. There is minor dependent atelectasis at the upper lobes. The more nodular areas at the posterior lateral lingula near the distal major fissure previously have also decreased in conspicuity. A previously reported pleural-based nodular density at the anterolateral right lower lung is similar. Anterior to it, there is a pleural-based nodular area within the middle lobe adjacent to the minor fissure which is slightly more prominent. This is in close proximity to an area of scarring with multiple calcifications at the basilar right upper lobe. Tiny similar nodular densities are seen at the left upper lobe on axial images 37 and 43 and at the lateral right upper lobe (axial image 41). There is no new consolidation, pleural effusion or pneumothorax. Limited cuts through the upper abdomen show calcified splenic granulomas. There is mild adrenal limb thickening. CT/CT chest w con IMPRESSION: BORDERLINE CARDIOMEGALY AND AORTIC ECTASIA. GRANULOMATOUS CHANGES. POSSIBLE LEFT SUPRACLAVICULAR ADENOPATHY. FOLLOW-UP ULTRASOUND COULD BE CONSIDERED. IMPROVING PARENCHYMAL CHANGES, DESCRIBED. CONTINUED PULMONARY NODULARITY WITH SOME STABLE AREAS WELL OTHERS APPEARING LESS EVIDENT AT THE LINGULA AND MINIMALLY MORE PROMINENT AT THE RIGHT MIDDLE LOBE. Impression dictated by: Mirta Aleman M.D. 08/09/2024 9:57 AM Dictation Location: [place] [address] Electronically authenticated by: [id number] Y Date: 08/09/2024 09:57
[2024-08-09 08:26] LABS: Hematocrit 40.4 % (42.0-54.0); Hemoglobin 13.1 g/dL (14.0-18.0); Immature Granulocytes Abs Auto 0.01 10^3/uL (0.00-0.03); Immature Granulocytes Pct Auto 0.2 % (0.0-0.5); Lymphocytes Absolute Auto 1.4 10^3/uL (1.2-3.8); Mean Corpuscular HGB Conc 32.4 g/dL (29.9-35.2); Mean Corpuscular Hemoglobin 30.5 pg (25.9-34.0); Mean Corpuscular Volume 94.2 fL (80.0-94.0); Platelet Count 253 10^3/uL (150-450); Red Blood Count 4.29 10^6/uL (4.70-6.10); White Blood Count 5.8 10^3/uL (4.0-11.0)
[2024-08-09 09:09] LABS: Alanine Aminotransferase 29 U/L (16-63); Albumin Globulin Ratio 0.7; Albumin Level 2.8 g/dL (3.4-5.0); Alkaline Phosphatase 98 U/L (46-116); Anion Gap 16.0; Aspartate Amino Transferase 21 U/L (15-37); Blood Urea Nitrogen 20.0 mg/dL (7.0-18.0); Calcium 9.5 mg/dL (8.5-10.1); Carbon Dioxide 25.9 mmol/L (21.0-32.0); Chloride 105 mmol/L (98-107); Estimated GFR (African America >60 (>=60 mL/min/1.73m^2); Estimated GFR (Non-African Ame >60 (>=60 mL/min/1.73m^2); Globulin 4.1 g/dL; Glucose 95 mg/dL (74-106); Potassium 3.9 mmol/L (3.5-5.1); Sodium 143 mmol/L (136-145); Total Protein 6.9 g/dL (6.4-8.2)
[2024-08-09 09:48] LABS: Thyroid Stimulating Hormone 2.607 uIU/mL (0.358-3.740)
== END 2024-08-09 08:06 | disposition home or self-care (01) ==
LOC: LAB 08:06
PROVIDERS: PCP Internal Medicine; Visit Provider Internal Medicine
DX: R53.83 Other fatigue (principal); Z79.899 Other long term (current) drug therapy; R00.0 Tachycardia, unspecified; I10 Essential (primary) hypertension
CPT/HCPCS: 36415; 71260; 80053; 84439; 84443; 84480; 85025; Q9967

== ENCOUNTER 2024-08-19 07:39 | Outpatient (OUT) | payer MEDICARE, OTHER, SELFPAY ==
--- OUTSIDE RECORDS SUMMARY | 2024-08-19 07:41 | XMS_ITS | Clinical Summary ---
Author Organization [employer] tem Address [id number] [address] [place] [address] Care Team Providers Care Lithographic Plate Maker Apprentice Name Role Phone Duarte Herrmann Primary Care Provider [phone] Allergies No known active allergies Medications FOLIC [...] Vaccine 2024 Medical Devices Implanted Type Area Salicylic Acid Blender Device Identifier Shelf Expiration Date Model / Serial / Lot Mesh Open Prgrp Rect 15x9cm - [id number] - [id number] Implanted:Qty: 1 on 05/26/2018 by Vasiliy Hernández MD at [facility] Mesh Right: Inguinal [employer] [facility] 11/08/2022 [id number] / [id number] / [id number] Mesh Pp Macro 15x7.5cm X3 Rpl [id number] - [id number] - [id number] Implanted:Qty: 1 on 05/26/2018 by Vasiliy Hernández MD at [facility] Mesh N/A: Abdomen [employer] [facility] 02/08/2022 [id number] / [id number] / [id number] Mesh Pp Macro 15x7.5cm X3 Rpl [id number] - [id number] - [id number] Implanted:Qty: 1 on 05/26/2018 by Vasiliy Hernández MD at [facility] Mesh Left: Inguinal [employer] [facility] 11/08/2022 [id number] / [id number] / [id number] Insurance Care Teams Lithographic Plate Maker Apprentice Relationship Specialty Start Date End Date Duarte Herrmann DO [address] [id number] PCP - General Internal Medicine 03/19/18
--- OUTSIDE RECORDS SUMMARY | 2024-08-19 07:41 | XMS_ITS | Clinical Summary ---
Author Organization [facility] Address [address] [place] [address] Care Team Providers Care Scenic Designer Name Role Phone Duarte Herrmann Primary Care Provider Allergies No known active allergies Medications Adalimumab (HUMIRA PEN) 40 mg/0.8 mL pnkt Inject subcutaneously. Active FOLIC ACID ORAL Take by mouth. Activ e methotrexate 2.5 mg tablet Take by mouth one time only. Active Omeprazole 40 mg capsule Take 40 mg by mouth once daily. Active golimumab (SIMPONI ARIA INTRAVENOUS) Inject 2 mg intravenously every 8 weeks. 2 mg/kg iv every 8 weeks per protocol (no loading doses) = 180 mg (4 vials) Active Cyanocobalamin (VITAMIN B-12) 1,000 mcg TbER Take 1 tablet by mouth once daily. Active amLODIPine (NORVASC) 5 mg tablet Take 5 mg by mouth once daily. 2 Active Active Problems No known active problems Immunizations Immunization Administration Dates Next Due COVID-19 original vaccine, a ge 12+ yr, monovalent (UniServity - PURPLE TOP) 04/12/2020,03/22/2020 influenza (aIIV4) vaccine, a ge 65+ yr, quadrivalent, PF (FLUAD QUAD) 11/16/2019 Family History Medical History Relation Comments Heart Father Cancer Mother Heart Mother CHF Relation Status Comments Brother 1 Brother 2 Alive Brother 3 Alive Father Mother Sister 1 Alive Sister 2 Alive Sister 3 Alive Sister 4 Alive Social History Tobacco Use Types Packs/Day Years Used Date Smoking Tobacco: Never Smokeless Tobacco: Never Tobacco Cessation:Counseling Given: Not Answered Alcohol Use Standard Drinks/Week Comments Yes 0 (1 standard drink = 0.6 oz pur e alcohol) Area Deprivation Index Answer Date Joni rded National Score (1-100), lower number is lower ri sk 64 11/24/2022 State Score (1-10), lower number is lower risk 4 11/24/2022 Data from: https://www.neighborhoodatlas.[facility]/. Last address used for calculation [id number] 11/24/2022 Sex and Gender Information Value Date Recorded Sex Assigned at Not on file Legal Sex Male 8:56 AM EDT Gender Identity Not on file Sexual Orientation Not on file Last Filed Vital Signs Vital Sign Reading Time Taken Comments Blood Pressure 120/86 11/24/2022 8:38 AM EDT Pulse 86 11/24/2022 8:38 AM EDT Temperature 36.7 C (98.1 F) 04/21/2018 2:16 PM EDT Respiratory Rate 16 04/21/2018 2:16 PM EDT Oxygen Saturation 99% 04/21/2018 2:16 PM EDT Inhaled Oxygen Concentration - - Weight 89.4 kg (197 lb) 11/24/2022 8:38 AM EDT Height 190.5 cm (6' 3 ) 11/24/2022 8:38 AM EDT Body Mass Index 24.62 11/24/2022 8:38 AM EDT Plan of Treatment Health Maintenance Due Date Last Done Comments Anxiety Screening 10/11/1959 Depression Screening 10/11/1959 Shingrix Vaccine (1 of 2) 1959 Medicare Annual Wellness Visit 09/09/2006 Pneumococcal Vaccine: 50+ (3 of 3 - PPSV23, PCV20 or PCV21) 04/18/2015 02/21/2015, 01/12/2002 Diabetes Screening 08/02/2016 08/02/2013 RSV Vaccine (1 - 1-dose 75+ series) 2016 Covid-19 Vaccine (2023-2 5 season) 2023 09/01/2022, 11/13/2021, 05/27/2021, Additional history exists DTaP,Tdap,Td Vaccine (4 - Td or Tdap) 11/26/2023 11/25/2013, 10/13/2012, 07/07/2012 Advance Directive Discussion 02/10/2024 Influenza Vaccine (#1) 2024 3, 11/07/2021, 11/06/2020, Additional history exists Medical Devices Implanted Type Area Photographic Platemaker Device Identifier Shelf Expiration Date Model / Serial / Lot Loop [id number] Reveal [id number] Implanted:04/21 (Quantity not on file) Implant [employer] [id number] [id number] / [id number] / Procedures Procedure Name Priority Date/Time Associated Diagnosis Comments BASIC METABOLIC PANEL Routine 08/02/2013 2:46 PM EDT Other specified pre-operative examination External hemorrhoids without mention of complication Internal hemorrhoids without mention of complication from Last 3 Months or Most Recently Relevant to Health Maintenance Results * BASIC METABOLIC PNL (08/02/2013 2:46 PM EDT) Glucose 92 65 - 100 mg/dL [facility] BUN 15 10 - 25 mg/dL [facility] Creatinine 0.79 0.70 - 1.40 mg/dL [facility] Sodium 139 135 - 146 mmol/L [facility] Potassium 4.2 3.5 - 5.0 mmol/L [facility] Chloride 103 98 - 110 mmol/L [facility] CO2 26 23 - 32 mmol/L [facility] Anion Gap 10 0 - 15 mmol/L [facility] Calcium 9.6 8.5 - 10.5 mg/dL [facility] eGFR- >60 [facility] eGFR-All Other Races >60 . [facility] Comment: eGFR (Estimated GFR) Units of measure: mL/min/1.73 meters squared eGFR is derived from the reexpressed MDRD Study equation using the following parameters: serum creatinine, age, gender and race. The creatinine assay has been calibrated to be traceable to [employer]. An eGFR <60 mL/min/1.73m2 for >3 months is consistent with chronic kidney disease. Refer to KDOQI guidelines for clinical interpretation. Blood specimen (specimen) BLOOD SPECIMEN / Unknown 08/02/2013 2:46 PM EDT 08/02/2013 2:48 PM EDT us Kandace Duckworth (Flaco)(Hist) [facility] Fi [facility]al Result [facility] [address] [place] [address] from Last 3 Months or Most Recently Relevant to Health Maintenance Insurance [facility] MEDICARE Care Teams Scenic Designer Relationship Specialty Start Date End Date Duarte Herrmann DO PCP - General Internal Medicine 07/18/13
--- OUTSIDE RECORDS SUMMARY | 2024-08-19 07:43 | XMS_ITS | CCD ---
Author Organization [facility] Care Team Providers Care Networking Technician Name Role Phone PHYSICIAN, DEFAULT Unavailable Unavailable [...] Care Provider MD Farhan Bertrand Attending Provider Vickey Moeller Unavailable Duarte Herrmann Unavailable DO Duarte Herrmann Primary Care Provider MD Farhan Bertrand Attending Provider MESERET Villar Attending Provider [...] Care Provider MD Clarke Bertrand Attending Provider Ball, DO Duarte Primary Care Provider MD Clarke Bertrand Attending Provider DO Clemente Flores Attending Provider Ball, DO Duarte Primary Care Provider Bedocs, DO Evangelista Solano Attending Provider [phone] MD Clarke Bertrand Attending Provider MD Clarke Bertrand Attending Provider Ball DO, Duarte Primary Care Provider Obermeyer ESTIMATOR-C, Lashell Nur Attending Provider Clarke Bertrand MD Attending Provider Ball DO, Duarte Primary Care Provider Elza WADDELL, Clarke Attending Provider Ball DO, Duarte Primary Care Provider Clarke Bertrand MD Attending Provider [phone] Vickey Moeller MD Attending Provider Gurinder Bartlett DO Attending Provider Vickey Moeller Admitting Unavailable Vickey Moeller Attending Unavailable Ball, Duarte Primary Care Unavailable Gurinder Bartlett Admitting Unavailable Gurinder Bartlett Attending Unavailable Ball, Duarte Primary Care Unavailable Bertrand, Clarke Admitting Unavailable Bertrand, Clarke Attending Unavailable Bertrand, Clarke Admitting Unavailable Bertrand, Clarke Attending Unavailable Ball, Duarte Primary Care Unavailable Obermeyer, Lashell L Admitting Unavailable Obermeyer, Lashell L Attending Unavailable Bertrand, Clarke Attending Unavailable Ball, Duarte Primary Care Unavailable Bertarnd, Clarke Admitting Unavailable Bertrand, Clarke Attending Unavailable Bertrand, Clarke Admitting Unavailable Ball, Duarte Primary Care Unavailable Ball DO, Duarte Primary Care Provider Ball DO, Duarte Attending Provider Vickey Moeller MD Other Provider [phone] Gurinder Bartlett DO Attending Provider Provider, Outside Attending Provider Unavailable Rex Gates MD Attending Provider Gena Plasencia CMA Attending Provider Unavailcornelia Bertrand MD, Clarke Attending Provider [phone] Allergies Allergy Classification Reported Allergen(s) Allergy Type Date of Onset Reaction(s) Facility (1 source) patient allergy list reviewed by nurse or physicia Propensity to adverse reactions 4 Comment:Done Darby Smart Other Medications Current Medications Medication Drug Class(es) Dates Sig (Normalized) Sig (Original) folic acid 1 mg oral tablet (20 sources) Start: 08-27-2017 take 1 tablet by mouth once daily FOLIC ACID ORAL Take by mouth. 0 Active Comment on above: Take by mouth. Folic Acid unknown (2 sources) take 1 tablet by mouth once daily 4 ml golimumab 12.5 mg/ml injection (20 sources) Tumor Necrosis Factor Swati Start: 09-17-2021 Start: 09-17-2021 Golimumab (Sim poni Aria) 12.5 [...] take 1 tablet by mouth once daily Start: 11-12-2023 End: 05-25-2024 take 1 tablet [...] take 8 tablets by mouth every week methotrexate 2.5 mg tablet Take by mouth one time only. 0 Active Comment on above: Take by mouth one ti me only. omeprazole 40 mg delayed release oral capsule (20 sources) Proton Pump Inhibitor Start: 11-18-2023 End: 11-18-2023 take 1 capsule by mouth twice daily Start: 10-07-2018 End: 11-18-2023 take 1 capsule [...] (20 sources) Dihydropyridine Calcium Channel Swati Start: 11-05-2023 take 1 tablet by mouth once daily Start: 09-17-2021 End: 11-05-2023 take 1 tablet [...] e (Proctofoam Hc) 1-1 % foam Discontinued August 27, 2017 12:00am August 27, 2017 12:55pm methylPREDNISolone 4 mg oral tablet (11 sources) Corticosteroid Start: 2024 End: 2024 Methylprednisolone 4 mg tablets,dose pack Discontinued 4 MG PO June 06, 2024 12:00am June 13, 2024 6:23pm take 1 tablet by humberto th every twelve hours methylPREDNISolone 4 MG 1 tablet with fo od or milk Orally every 12 hrs Active oseltamivir 75 mg oral capsule (8 sources) Neuraminidase Inhibitor Start: 04-20-2024 End: 05-25-2024 [...] history of urinary calculi] Onset: 0 Episodic Cardiac dysrhythmias (2 sources) Tachycardia; Translations: [Tachycardia, unspecified] 07-13-2024 Episodic Chronic obstructive pulmonary disease and bronchiectasis (12 sources) Chronic obstructive pulmonary disease with acute [...] urinary tract symptoms [LUTS]] Onset: 7 Chronic Immunity disorders (6 sources) Immunosuppression; 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, unspecified] 07-13-2024 Chronic Immunizations and screening for infectious disease (1 source) Vaccination given; Translations: [Encounter for immunization] Episodic Influenza (5 sources) Influenza due to other identified influenza virus with other respiratory manifestations; Translations: [Influenza due to identified 2009 H1N1 influenza virus with other respiratory manifestations] 04-20-2024 Episodic Lymphadenitis (3 sources) Supraclavicular lymphadenopathy; Translations: [Localized enlarged lymph nodes] 08-09-2024 Episodic Comment on above: CT: 5.1cm left supra clavicular adenopathy - 08/2024 Malaise and fatigue (2 sources) Fatigue; Translations: [Other fatigue] 07-13-2024 Episodic Nausea and vomiting (8 sources) Vomiting; Translations: [Vomiting, unspecified] Episodic Osteoarthritis (20 sources) Osteoarthritis of right knee joint; Translations: [Unilateral primary osteoarthritis, right knee] 05-21-2023 Chronic Other aftercare (12 sources) Immunosuppression; 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] 04-20-2024 Episodic Other aftercare (2 sources) Taking high risk medication; Translations: [Other wound care coordinator (current) drug therapy] 07-13-2024 Episodic Other circulatory disease (1 source) History [...] of falling] Episodic Other lower respiratory disease (3 sources) Interstitial lung disease; Translations: [Interstitial pulmonary disease, unspecified] 07-06-2024 Chronic Comment on above: CT: lymphadenopathy and B/L parenchymal changes - 06/2024Recommend recheck Other lower respiratory disease (5 sources) Hypoxemia; Translations: [Hypoxemia] 07-11-2024 Episodic Other lower respiratory disease (1 source) Hypoxemia; Translations: [Hypoxemia] 07-13-2024 Episodic Other lower respiratory disease (6 sources) Other nonspecific abnormal finding of lung field; Translations: [Ground glass opacity present on imaging of lung] 08-09-2024 Episodic Comment on above: CT: GGO B/L lung bas e L>R, RML nodule - 06/2024,CT: GGO B/L lung base L>R w/ improvement, RML nodule more prominent - 08/2024 CT: GGO B/L lung bas e L>R, RML nodule - 06/2024,CT: GGO B/L lung base L>R w/ improvement, RML nodule more prominent - 08/2024Repeat Other non-traumatic joint disorders (17 sources) Pain in right shoulder; Translations: [Right shoulder pain] 05-18-2023 Episodic Other screening for suspected conditions (not mental disorders or infectious disease) (16 sources) Encounter for screening for malignant neoplasm of prostate; Translations: [Patient encounter status] Onset: 1 11-09-2023 Episodic Pneumonia (except that caused by tuberculosis or sexually transmitted disease) (8 sources) Pneumonia; Translations: [Pneumonia, unspecified organism] 07-11-2024 Episodic Residual codes; unclassified (12 sources) Bilateral lower limb edema; Translations: [Localized [...] Test Name Value Interpretation Reference Range Facility Alanine aminotransferase [En zymatic activity/volume] in Serum or PlasmaOrdered By: Clarke Bertrand on 08-18-2024 ALT [Catalytic activity/Vol] 16 U/L 7-52 [facility] Albumin [Mass/volume] in Ser um or Plasma by Bromocresol green (BCG) dye binding methoOrdered By: Clarke Bertrand on 08-18-2024 Albumin BCG dye [Mass/Vol] 3.6 g/dL 3.5-5.7 [facility] Alkaline phosphatase [Enzyma tic activity/volume] in Serum or PlasmaOrdered By: Clarke Bertrand on 08-18-2024 ALP [Catalytic activity/Vol] 79 U/L 34-104 [facility] Aspartate aminotransferase [ Enzymatic activity/volume] in Serum or PlasmaOrdered By: Clarke Bertrand on 08-18-2024 AST [Catalytic activity/Vol] 20 U/L 13-39 [facility] Basophils Auto (Bld) [#/Vol] Ordered By: Clarke Bertrand on 08-18-2024 Basophils (Bld) [#/Vol] 0.0 10*3/uL 0.0-0.2 [facility] Basophils/100 WBC Auto (Bld) Ordered By: Clarke Bertrand 08-18-2024 Basophils/100 WBC (Bld) 0.4 % . [facility] Bilirubin.total [Mass/volume ] in Serum or PlasmaOrdered By: Clarke Bertrand on 08-18-2024 Bilirubin [Mass/Vol] 0.5 mg/dL 0.3-1.0 [facility] Calcium [Mass/volume] in Ser um or PlasmaOrdered By: Clarke Bertrand on 08-18-2024 Calcium [Mass/Vol] 9.4 mg/dL 8.6-10.3 [facility] Carbon dioxide, total [Moles /volume] in Serum or PlasmaOrdered By: Clarke Bertrand on 08-18-2024 CO2 [Moles/Vol] 26.8 mmol/L 21.0-31.0 [facility] Chloride [Moles/volume] in S jessica or PlasmaOrdered By: Clarke Bertrand on 08-18-2024 Chloride [Moles/Vol] 104 mmol/L 98-107 [facility] Creatinine [Mass/volume] in Serum or PlasmaOrdered By: Clarke Bertrand on 08-18-2024 Creatinine [Mass/Vol] 0.67 mg/dL Low 0.70-1.30 [facility] Eosinophils Auto (Bld) [#/Vo l]Ordered By: Clarke Bertrand on 08-18-2024 Eosinophils (Bld) [#/Vol] 0.2 10*3/uL 0.0-0.45 [facility] Eosinophils/100 WBC Auto (Bl d)Ordered By: Clarke Bertrand on 08-18-2024 Eosinophils/100 WBC (Bld) 2.6 % . [facility] Erythrocyte distribution wid th Auto (RBC) [Ratio]Ordered By: Clarke Bertrand on 08-18-2024 Erythrocyte distribution width (RBC) [Ratio] 17.9 % High 12.0-14.8 [facility] Erythrocyte sedimentation ra te by Photometric methodOrdered By: Clarke Bertrand on 08-18-2024 ESR Photometric method (Bld) [Velocity] 69 mm/hr High 0-19 [facility] Globulin Calc (S) [Mass/Vol] Ordered By: Clarke Bertrand 08-18-2024 Globulin (S) [Mass/Vol] 3.2 g/dL [facility] Glucose [Mass/volume] in Ser um or PlasmaOrdered By: Clarke Bertrand on 08-18-2024 Glucose [Mass/Vol] 95 mg/dL 70-100 [facility] Comment on above: ADA recommended refe rence rangeRandom Glucose Reference Range is dependent on time and content of last meal. Glucose of more than 200 mg/dL in a nonstressed, ambulatory subject supports the diagnosis of Diabetes Mellitus. Hematocrit Auto (Bld) [Volum e fraction]Ordered By: Clarke Bertrand on 08-18-2024 Hematocrit (Bld) [Volume fraction] 39.4 % 38.8-50.0 [facility] Hemoglobin [Mass/volume] in BloodOrdered By: Clarke Bertrand on 08-18-2024 Hemoglobin (Bld) [Mass/Vol] 13.1 g/dL 13.0-17.0 [facility] Leukocytes [#/volume] correc constance for nucleated erythrocytes in Blood by Automated counOrdered By: Clarke Bertrand on 08-18-2024 WBC corrected for nucl RBC Auto (Bld) [#/Vol] 7.0 10*3/uL 4.1-10.5 [facility] Lymphocytes Auto (Bld) [#/Vo l]Ordered By: Clarke Bertrand on 08-18-2024 Lymphocytes (Bld) [#/Vol] 1.3 10*3/uL 1.00-4.8 [facility] Lymphocytes/100 WBC Auto (Bl d)Ordered By: Clarke Bertrand on 08-18-2024 Lymphocytes/100 WBC (Bld) 18.2 % . [facility] MCH Auto (RBC) [Entitic mass ]Ordered By: Clarke Bertrand on 08-18-2024 MCH (RBC) [Entitic mass] 30.7 pg 27.5-35.2 [facility] MCHC Auto (RBC) [Mass/Vol]Or dered By: Clarke Bertrand on 08-18-2024 MCHC (RBC) [Mass/Vol] 33.3 g/dL 32.5-35.6 [facility] MCV Auto (RBC) [Entitic vol] Ordered By: Clarke Bertrand on 08-18-2024 MCV (RBC) [Entitic vol] 92.0 fL 83.5-101 [facility] Monocytes Auto (Bld) [#/Vol] Ordered By: Clarke Bertrand on 08-18-2024 Monocytes (Bld) [#/Vol] 1.0 10*3/uL High 0.0-0.8 [facility] Monocytes/100 WBC Auto (Bld) Ordered By: Clarke Bertrand on 08-18-2024 Monocytes/100 WBC (Bld) 13.7 % . [facility] Neutrophils Auto (Bld) [#/Vo l]Ordered By: Clarke Bertrand on 08-18-2024 Neutrophils (Bld) [#/Vol] 4.6 10*3/uL 1.8-7.7 [facility] Neutrophils/100 WBC Auto (Bl d)Ordered By: Clarke Bertrand on 08-18-2024 Neutrophils/100 WBC (Bld) 65.1 % . [facility] No Panel InformationOrdered By: Clarke Bertrand on 08-18-2024 Estimated GFR (CKD-EPI) > 60.0 mL/Min [facility] Pharmacy Creatinine Clearance (Chem N/A [facility] Nucleated erythrocytes [Pres ence] in Blood by Automated countOrdered By: Clarke Bertrand on 08-18-2024 Nucleated RBC Auto Ql (Bld) 0.1 /100{WBC} 0-0.5 [facility] Platelet mean volume Auto (B ld) [Entitic vol]Ordered By: Clarke Bertrand on 08-18-2024 Platelet mean volume (Bld) [Entitic vol] 8.9 fL 6.6-10.1 [facility] Platelets Auto (Bld) [#/Vol] Ordered By: Clarke Bertrand on 08-18-2024 Platelets (Bld) [#/Vol] 213 10*3/uL 150-450 [facility] Potassium [Moles/volume] in Serum or PlasmaOrdered By: Clarke Bertrand on 08-18-2024 Potassium [Moles/Vol] 4.0 mmol/L 3.5-5.1 [facility] Protein [Mass/volume] in Ser um or PlasmaOrdered By: Clarke Bertrand on 08-18-2024 Protein [Mass/Vol] 6.8 g/dL 6.4-8.9 [facility] RBC Auto (Bld) [#/Vol]Ordere d By: Clarke Bertrand on 08-18-2024 RBC (Bld) [#/Vol] 4.28 10*6/uL 3.90-5.60 [facility] Serum or plasma albumin/glob ulin mass ratioOrdered By: Clarke Bertrand on 08-18-2024 Albumin/Globulin [Mass ratio] 1.1 {ratio} [facility] Serum or plasma anion gap de terminationOrdered By: Clarke Bertrand on 08-18-2024 Anion gap [Moles/Vol] 11.2 mmol/L 6.0-15.0 [facility] Sodium [Moles/volume] in Ser um or PlasmaOrdered By: Clarke Bertrand on 08-18-2024 Sodium [Moles/Vol] 138 mmol/L 136-145 [facility] Urea nitrogen [Mass/volume] in Serum or PlasmaOrdered By: Clarke Bertrand on 08-18-2024 Urea nitrogen [Mass/Vol] 18 mg/dL 7-25 [facility] WBC Auto (Bld) [#/Vol]Ordere d By: Clarke Bertrand on 08-18-2024 WBC (Bld) [#/Vol] 7.0 10*3/uL 4.1-10.5 [facility] Basophils Auto (Bld) [#/Vol] Ordered By: Duarte Herrmann on 08-09-2024 Basophils (Bld) [#/Vol] 0.0 10 3/uL 0.0-0.1 [facility] Basophils/100 WBC Auto (Bld) Ordered By: Duarte Herrmann on 08-09-2024 Basophils/100 WBC (Bld) 0.3 % 0.2-2.0 [facility] Eosinophils/100 WBC Auto (Bl d)Ordered By: Duarte Herrmann on 08-09-2024 Eosinophils/100 WBC (Bld) 2.1 % 0.9-7.0 [facility] Erythrocyte distribution wid th Auto (RBC) [Ratio]Ordered By: Duarte Herrmann on 08-09-2024 Erythrocyte distribution width (RBC) [Ratio] 16.9 % High 11.0-15.0 [facility] Estimated glomerular filtrat ion rate (GFR) non- AmericanOrdered By: Duarte Herrmann on 08-09-2024 GFR/1.73 sq M.predicted among non-blacks MDRD (S/P/Bld) [Vol rate/Area] mL/min/{1.73_m2} >=60 mL/min/1.73m 2 [facility] Globulin Calc (S) [Mass/Vol] Ordered By: Duarte Herrmann on 08-09-2024 Globulin (S) [Mass/Vol] 4.1 g/dL [facility] Hematocrit Auto (Bld) [Volum e fraction]Ordered By: Duarte Herrmann on 08-09-2024 Hematocrit (Bld) [Volume fraction] 40.4 % Low 42.0-54.0 [facility] Hemoglobin [Mass/volume] in BloodOrdered By: Duarte Herrmann on 08-09-2024 Hemoglobin (Bld) [Mass/Vol] 13.1 g/dL Low 14.0-18.0 [facility] Laboratory - Chemistry and C hemistry - challengeOrdered By: Duarte Herrmann on 08-09-2024 Albumin [Mass/Vol] 2.8 g/dL Low 3.4-5.0 [facility] ALP [Catalytic activity/Vol] 98 U/L 46-116 [facility] ALT [Catalytic activity/Vol] 29 U/L 16-63 [facility] AST [Catalytic activity/Vol] 21 U/L 15-37 [facility] Bilirubin [Mass/Vol] 0.5 mg/dL 0.2-1.0 [facility] Calcium [Mass/Vol] 9.5 mg/dL 8.5-10.1 [facility] Chloride [Moles/Vol] 105 mmol/L 98-107 [facility] CO2 [Moles/Vol] 25.9 mmol/L 21.0-32.0 [facility] Creatinine [Mass/Vol] 0.59 mg/dL Low 0.70-1.30 [facility] Free T4 [Mass/Vol] 1.28 ng/dL 0.76-1.46 [facility] GFR/1.73 sq M.predicted MDRD (S/P/Bld) [Vol rate/Area] mL/min/{1.73_m2} >=60 mL/min/1.73m 2 [facility] Glucose [Mass/Vol] 95 mg/dL 74-106 [facility] Potassium [Moles/Vol] 3.9 mmol/L 3.5-5.1 [facility] Protein [Mass/Vol] 6.9 g/dL 6.4-8.2 [facility] Sodium [Moles/Vol] 143 mmol/L 136-145 [facility] TSH Qn 2.607 m[IU]/L 0.358-3.740 [facility] Urea nitrogen [Mass/Vol] 20.0 mg/dL High 7.0-18.0 [facility] Urea nitrogen/Creatinine [Mass ratio] 33.9 mg/mg [facility] Laboratory - Hematology and Cell countsOrdered By: Duarte Herrmann on 08-09-2024 Immature granulocytes/100 WBC (Bld) 0.2 % 0.0-0.5 [facility] Leukocytes [#/volume] correc constance for nucleated erythrocytes in Blood by Automated counOrdered By: Duarte Herrmann on 08-09-2024 WBC corrected for nucl RBC Auto (Bld) [#/Vol] 5.8 10 3/uL 4.0-11.0 [facility] Lymphocytes Auto (Bld) [#/Vo l]Ordered By: Duarte Herrmann on 08-09-2024 Lymphocytes (Bld) [#/Vol] 1.4 10 3/uL 1.2-3.8 [facility] Lymphocytes/100 WBC Auto (Bl d)Ordered By: Duarte Herrmann on 08-09-2024 Lymphocytes/100 WBC (Bld) 24.6 % 20.5-60.0 [facility] MCH Auto (RBC) [Entitic mass ]Ordered By: Duarte Herrmann on 08-09-2024 MCH (RBC) [Entitic mass] 30.5 pg 25.9-34.0 [facility] MCHC Auto (RBC) [Mass/Vol]Or dered By: Duarte Herrmann on 08-09-2024 MCHC (RBC) [Mass/Vol] 32.4 g/dL 29.9-35.2 [facility] MCV Auto (RBC) [Entitic vol] Ordered By: Duarte Herrmann on 08-09-2024 MCV (RBC) [Entitic vol] 94.2 fL High 80.0-94.0 [facility] Monocytes Auto (Bld) [#/Vol] Ordered By: Duarte Herrmann on 08-09-2024 Monocytes (Bld) [#/Vol] 0.9 10 3/uL High 0.3-0.8 [facility] Monocytes/100 WBC Auto (Bld) Ordered By: Duarte Herrmann on 08-09-2024 Monocytes/100 WBC (Bld) 14.8 % High 1.7-12.0 [facility] Neutrophils Auto (Bld) [#/Vo l]Ordered By: Duarte Herrmann on 08-09-2024 Neutrophils (Bld) [#/Vol] 3.4 10 3/uL 1.4-6.5 [facility] Neutrophils/100 WBC Auto (Bl d)Ordered By: Duarte Herrmann on 08-09-2024 Neutrophils/100 WBC (Bld) 58.0 % 43.0-75.0 [facility] No Panel InformationOrdered By: Duarte Herrmann on 08-09-2024 Eosinophils # (Auto) 0.1 10 3/uL 0.0-0.7 [facility] Immature Granulocyte # (Auto) 0.01 10 3/uL 0.00-0.03 [facility] Total Triiodothyronine 102 ng/dL 71-180 [facility] Comment on above: Performed at: [place] [id number] Director: Ky Durham PhD, Phone: [phone] Platelet mean volume Auto (B ld) [Entitic vol]Ordered By: Duarte Herrmann on 08-09-2024 Platelet mean volume (Bld) [Entitic vol] 9.6 fL 9.5-13.5 [facility] Platelets Auto (Bld) [#/Vol] Ordered By: Duarte Herrmann on 08-09-2024 Platelets (Bld) [#/Vol] 253 10 3/uL 150-450 [facility] RBC Auto (Bld) [#/Vol]Ordere d By: Duarte Herrmann on 08-09-2024 RBC (Bld) [#/Vol] 4.29 10 6/uL Low 4.70-6.10 [facility] Serum or plasma albumin/glob ulin mass ratioOrdered By: Duarte Herrmann on 08-09-2024 Albumin/Globulin [Mass ratio] 0.7 {ratio} [facility] Serum or plasma anion gap de terminationOrdered By: Duarte Herrmann on 08-09-2024 Anion gap [Moles/Vol] 16.0 mmol/L [facility] Basophils Auto (Bld) [#/Vol] on 07-07-2024 Basophils (Bld) [#/Vol] Automated basoph il count 0.0-0.1 [facility] Basophils (Bld) [#/Vol] 0.0 10 3/uL 0.0-0.1 [facility] Basophils/100 WBC Auto (Bld) on 07-07-2024 Basophils/100 WBC (Bld) Automated basophil % 0. 2-2.0 [facility] Basophils/100 WBC (Bld) 0.2 % 0.2-2.0 [facility] Eosinophils/100 WBC Auto (Bl d)on 07-07-2024 Eosinophils/100 WBC (Bld) Automated eosinophil % Low 0.9-7.0 [facility] Eosinophils/100 WBC (Bld) 0.0 % Low 0.9-7.0 [facility] Erythrocyte distribution wid th Auto (RBC) [Ratio]on 07-07-2024 Erythrocyte distribution width (RBC) [Ratio] Erythrocyte distribution width [Ratio] by Automated count High 11.0-15.0 [facility] Erythrocyte distribution width (RBC) [Ratio] 16.7 % High 11.0-15.0 [facility] Estimated glomerular filtrat ion rate (GFR) non- Americanon 07-07-2024 GFR/1.73 sq M.predicted among non-blacks MDRD (S/P/Bld) [Vol rate/Area] Estimated glomerular filtration rate (GFR) non- >=60 mL/min/1.73m 2 [facility] GFR/1.73 sq M.predicted among non-blacks MDRD (S/P/Bld) [Vol rate/Area] mL/min/{1.73_m2} >=60 mL/min/1.73m 2 [facility] Globulin Calc (S) [Mass/Vol] on 07-07-2024 Globulin (S) [Mass/Vol] Serum globulin measurement by calculation (mass/volume) [facility] Globulin (S) [Mass/Vol] 3.9 g/dL [facility] Hematocrit Auto (Bld) [Volum e fraction]on 07-07-2024 Hematocrit (Bld) [Volume fraction] Hematocrit [Volume Fraction] of Blood by Automated count Low 42.0-54.0 [facility] Hematocrit (Bld) [Volume fraction] 37.4 % Low 42.0-54.0 [facility] Hemoglobin [Mass/volume] in Bloodon 07-07-2024 Hemoglobin (Bld) [Mass/Vol] Hemoglobin [Mass/volume] in Blood Low 14.0-18.0 [facility] Hemoglobin (Bld) [Mass/Vol] 12.5 g/dL Low 14.0-18.0 [facility] Laboratory - Chemistry and C hemistry - challengeon 07-07-2024 Albumin [Mass/Vol] 2.0 g/dL Low 3.4-5.0 [facility] ALP [Catalytic activity/Vol] 65 U/L 46-116 [facility] ALT [Catalytic activity/Vol] 83 U/L High 16-63 [facility] AST [Catalytic activity/Vol] 51 U/L High 15-37 [facility] Bilirubin [Mass/Vol] 0.4 mg/dL 0.2-1.0 [facility] Calcium [Mass/Vol] 8.8 mg/dL 8.5-10.1 [facility] Chloride [Moles/Vol] 105 mmol/L 98-107 [facility] CO2 [Moles/Vol] 23.3 mmol/L 21.0-32.0 [facility] Creatinine [Mass/Vol] 0.80 mg/dL 0.70-1.30 [facility] GFR/1.73 sq M.predicted MDRD (S/P/Bld) [Vol rate/Area] mL/min/{1.73_m2} >=60 mL/min/1.73m 2 [facility] Glucose [Mass/Vol] 145 mg/dL High 74-106 [facility] Magnesium [Mass/Vol] 2.5 mg/dL High 1.8-2.4 [facility] Potassium [Moles/Vol] 3.4 mmol/L Low 3.5-5.1 [facility] Protein [Mass/Vol] 5.9 g/dL Low 6.4-8.2 [facility] Sodium [Moles/Vol] 142 mmol/L 136-145 [facility] Urea nitrogen [Mass/Vol] 35.0 mg/dL High 7.0-18.0 [facility] Urea nitrogen/Creatinine [Mass ratio] 43.8 mg/mg [facility] Laboratory - Hematology and Cell countson 07-07-2024 Immature granulocytes/100 WBC (Bld) 0.8 % High 0.0-0.5 [facility] Leukocytes [#/volume] correc constance for nucleated erythrocytes in Blood by Automated counon 07-07-2024 WBC corrected for nucl RBC Auto (Bld) [#/Vol] Leukocytes [#/volume] corrected for nucleated erythrocytes in Blood by Automated coun 4.0-11.0 [facility] WBC corrected for nucl RBC Auto (Bld) [#/Vol] 4.8 10 3/uL 4.0-11.0 [facility] Lymphocytes Auto (Bld) [#/Vo l]on 07-07-2024 Lymphocytes (Bld) [#/Vol] Lymphocytes [#/volume] in Blood by Automated count Low 1.2-3.8 [facility] Lymphocytes (Bld) [#/Vol] 0.5 10 3/uL Low 1.2-3.8 [facility] Lymphocytes/100 WBC Auto (Bl d)on 07-07-2024 Lymphocytes/100 WBC (Bld) Lymphocytes/100 leukocytes in Blood by Automated count Low 20.5-60.0 [facility] Lymphocytes/100 WBC (Bld) 11.3 % Low 20.5-60.0 [facility] MCH Auto (RBC) [Entitic mass ]on 07-07-2024 MCH (RBC) [Entitic mass] MCH [Entitic ma ss] by Automated count 25.9-34.0 [facility] MCH (RBC) [Entitic mass] 30.2 pg 25.9-34.0 [facility] MCHC Auto (RBC) [Mass/Vol]on 07-07-2024 MCHC (RBC) [Mass/Vol] MCHC [Mass/volume] by Automated count 29.9-35.2 [facility] MCHC (RBC) [Mass/Vol] 33.4 g/dL 29.9-35.2 [facility] MCV Auto (RBC) [Entitic vol] on 07-07-2024 MCV (RBC) [Entitic vol] MCV [Entitic vol ume] by Automated count 80.0-94.0 [facility] MCV (RBC) [Entitic vol] 90.3 fL 80.0-94.0 [facility] Monocytes Auto (Bld) [#/Vol] on 07-07-2024 Monocytes (Bld) [#/Vol] Automated blood monocyte count Low 0.3-0.8 [facility] Monocytes (Bld) [#/Vol] 0.2 10 3/uL Low 0.3-0.8 [facility] Monocytes/100 WBC Auto (Bld) on 07-07-2024 Monocytes/100 WBC (Bld) Automated monocyte % 1. 7-12.0 [facility] Monocytes/100 WBC (Bld) 3.8 % 1.7-12.0 [facility] Neutrophils Auto (Bld) [#/Vo l]on 07-07-2024 Neutrophils (Bld) [#/Vol] Neutrophils [#/volume] in Blood by Automated count 1.4-6.5 [facility] Neutrophils (Bld) [#/Vol] 4.0 10 3/uL 1.4-6.5 [facility] Neutrophils/100 WBC Auto (Bl d)on 07-07-2024 Neutrophils/100 WBC (Bld) Automated neutrophil % High 43.0-75.0 [facility] Neutrophils/100 WBC (Bld) 83.9 % High 43.0-75.0 [facility] No Panel Informationon 07-07 Eosinophils # (Auto) 0.0 10 3/uL 0.0-0.7 [facility] Immature Granulocyte # (Auto) 0.04 10 3/uL High 0.00-0.03 [facility] Platelet mean volume Auto (B ld) [Entitic vol]on 07-07-2024 Platelet mean volume (Bld) [Entitic vol] Platelet mean volume [Entitic volume] in Blood by Automated count 9.5-13.5 [facility] Platelet mean volume (Bld) [Entitic vol] 11.2 fL 9.5-13.5 [facility] Platelets Auto (Bld) [#/Vol] on 07-07-2024 Platelets (Bld) [#/Vol] Platelets [#/vol ume] in Blood by Automated count 150-450 [facility] Platelets (Bld) [#/Vol] 182 10 3/uL 150-450 [facility] RBC Auto (Bld) [#/Vol]on RBC (Bld) [#/Vol] Erythrocytes [#/volume] in Blood by Automated count Low 4.70-6.10 [facility] RBC (Bld) [#/Vol] 4.14 10 6/uL Low 4.70-6.10 [facility] Serum or plasma albumin/glob ulin mass ratioon 07-07-2024 Albumin/Globulin [Mass ratio] Serum or plasma albumin/globulin mass ratio [facility] Albumin/Globulin [Mass ratio] 0.5 {ratio} [facility] Serum or plasma anion gap de terminationon 07-07-2024 Anion gap [Moles/Vol] Serum or plasma an ion gap determination [facility] Anion gap [Moles/Vol] 17.1 mmol/L [facility] Basophils Auto (Bld) [#/Vol] on 07-06-2024 Basophils (Bld) [#/Vol] Automated basoph il count 0.0-0.1 [facility] Basophils (Bld) [#/Vol] 0.0 10 3/uL 0.0-0.1 [facility] Basophils/100 WBC Auto (Bld) on 07-06-2024 Basophils/100 WBC (Bld) Automated basophil % Low 0. 2-2.0 [facility] Basophils/100 WBC (Bld) 0.1 % Low 0.2-2.0 [facility] Eosinophils/100 WBC Auto (Bl d)on 07-06-2024 Eosinophils/100 WBC (Bld) Automated eosinophil % Low 0.9-7.0 [facility] Eosinophils/100 WBC (Bld) 0.0 % Low 0.9-7.0 [facility] Erythrocyte distribution wid th Auto (RBC) [Ratio]on 07-06-2024 Erythrocyte distribution width (RBC) [Ratio] Erythrocyte distribution width [Ratio] by Automated count High 11.0-15.0 [facility] Erythrocyte distribution width (RBC) [Ratio] 16.6 % High 11.0-15.0 [facility] Estimated glomerular filtrat ion rate (GFR) non- Americanon 07-06-2024 GFR/1.73 sq M.predicted among non-blacks MDRD (S/P/Bld) [Vol rate/Area] Estimated glomerular filtration rate (GFR) non- >=60 mL/min/1.73m 2 [facility] GFR/1.73 sq M.predicted among non-blacks MDRD (S/P/Bld) [Vol rate/Area] mL/min/{1.73_m2} >=60 mL/min/1.73m 2 [facility] Globulin Calc (S) [Mass/Vol] on 07-06-2024 Globulin (S) [Mass/Vol] Serum globulin measurement by calculation (mass/volume) [facility] Globulin (S) [Mass/Vol] 4.3 g/dL [facility] Hematocrit Auto (Bld) [Volum e fraction]on 07-06-2024 Hematocrit (Bld) [Volume fraction] Hematocrit [Volume Fraction] of Blood by Automated count Low 42.0-54.0 [facility] Hematocrit (Bld) [Volume fraction] 35.8 % Low 42.0-54.0 [facility] Hemoglobin [Mass/volume] in Bloodon 07-06-2024 Hemoglobin (Bld) [Mass/Vol] Hemoglobin [Mass/volume] in Blood Low 14.0-18.0 [facility] Hemoglobin (Bld) [Mass/Vol] 12.0 g/dL Low 14.0-18.0 [facility] Laboratory - Chemistry and C hemistry - challengeon 07-06-2024 Albumin [Mass/Vol] 2.1 g/dL Low 3.4-5.0 [facility] ALP [Catalytic activity/Vol] 71 U/L 46-116 [facility] ALT [Catalytic activity/Vol] 69 U/L High 16-63 [facility] AST [Catalytic activity/Vol] 64 U/L High 15-37 [facility] Bilirubin [Mass/Vol] 0.5 mg/dL 0.2-1.0 [facility] Calcium [Mass/Vol] 9.3 mg/dL 8.5-10.1 [facility] Chloride [Moles/Vol] 103 mmol/L 98-107 [facility] CO2 [Moles/Vol] 23.3 mmol/L 21.0-32.0 [facility] Creatinine [Mass/Vol] 0.85 mg/dL 0.70-1.30 [facility] GFR/1.73 sq M.predicted MDRD (S/P/Bld) [Vol rate/Area] mL/min/{1.73_m2} >=60 mL/min/1.73m 2 [facility] Glucose [Mass/Vol] 145 mg/dL High 74-106 [facility] Magnesium [Mass/Vol] 2.1 mg/dL 1.8-2.4 [facility] Potassium [Moles/Vol] 3.5 mmol/L 3.5-5.1 [facility] Protein [Mass/Vol] 6.4 g/dL 6.4-8.2 [facility] Sodium [Moles/Vol] 138 mmol/L 136-145 [facility] Urea nitrogen [Mass/Vol] 44.0 mg/dL High 7.0-18.0 [facility] Urea nitrogen/Creatinine [Mass ratio] 51.8 mg/mg [facility] Laboratory - Hematology and Cell countson 07-06-2024 Immature granulocytes/100 WBC (Bld) 0.4 % 0.0-0.5 [facility] Leukocytes [#/volume] correc constance for nucleated erythrocytes in Blood by Automated counon 07-06-2024 WBC corrected for nucl RBC Auto (Bld) [#/Vol] Leukocytes [#/volume] corrected for nucleated erythrocytes in Blood by Automated coun 4.0-11.0 [facility] WBC corrected for nucl RBC Auto (Bld) [#/Vol] 8.0 10 3/uL 4.0-11.0 [facility] Lymphocytes Auto (Bld) [#/Vo l]on 07-06-2024 Lymphocytes (Bld) [#/Vol] Lymphocytes [#/volume] in Blood by Automated count Low 1.2-3.8 [facility] Lymphocytes (Bld) [#/Vol] 0.6 10 3/uL Low 1.2-3.8 [facility] Lymphocytes/100 WBC Auto (Bl d)on 07-06-2024 Lymphocytes/100 WBC (Bld) Lymphocytes/100 leukocytes in Blood by Automated count Low 20.5-60.0 [facility] Lymphocytes/100 WBC (Bld) 7.5 % Low 20.5-60.0 [facility] MCH Auto (RBC) [Entitic mass ]on 07-06-2024 MCH (RBC) [Entitic mass] MCH [Entitic ma ss] by Automated count 25.9-34.0 [facility] MCH (RBC) [Entitic mass] 30.3 pg 25.9-34.0 [facility] MCHC Auto (RBC) [Mass/Vol]on 07-06-2024 MCHC (RBC) [Mass/Vol] MCHC [Mass/volume] by Automated count 29.9-35.2 [facility] MCHC (RBC) [Mass/Vol] 33.5 g/dL 29.9-35.2 [facility] MCV Auto (RBC) [Entitic vol] on 07-06-2024 MCV (RBC) [Entitic vol] MCV [Entitic vol ume] by Automated count 80.0-94.0 [facility] MCV (RBC) [Entitic vol] 90.4 fL 80.0-94.0 [facility] Monocytes Auto (Bld) [#/Vol] on 07-06-2024 Monocytes (Bld) [#/Vol] Automated blood monocyte count 0.3-0.8 [facility] Monocytes (Bld) [#/Vol] 0.3 10 3/uL 0.3-0.8 [facility] Monocytes/100 WBC Auto (Bld) on 07-06-2024 Monocytes/100 WBC (Bld) Automated monocyte % 1. 7-12.0 [facility] Monocytes/100 WBC (Bld) 4.0 % 1.7-12.0 [facility] Neutrophils Auto (Bld) [#/Vo l]on 07-06-2024 Neutrophils (Bld) [#/Vol] Neutrophils [#/volume] in Blood by Automated count High 1.4-6.5 [facility] Neutrophils (Bld) [#/Vol] 7.1 10 3/uL High 1.4-6.5 [facility] Neutrophils/100 WBC Auto (Bl d)on 07-06-2024 Neutrophils/100 WBC (Bld) Automated neutrophil % High 43.0-75.0 [facility] Neutrophils/100 WBC (Bld) 88.0 % High 43.0-75.0 [facility] No Panel Informationon 07-06 Eosinophils # (Auto) 0.0 10 3/uL 0.0-0.7 [facility] Immature Granulocyte # (Auto) 0.03 10 3/uL 0.00-0.03 [facility] Platelet mean volume Auto (B ld) [Entitic vol]on 07-06-2024 Platelet mean volume (Bld) [Entitic vol] Platelet mean volume [Entitic volume] in Blood by Automated count 9.5-13.5 [facility] Platelet mean volume (Bld) [Entitic vol] 10.6 fL 9.5-13.5 [facility] Platelets Auto (Bld) [#/Vol] on 07-06-2024 Platelets (Bld) [#/Vol] Platelets [#/vol ume] in Blood by Automated count 150-450 [facility] Platelets (Bld) [#/Vol] 175 10 3/uL 150-450 [facility] RBC Auto (Bld) [#/Vol]on RBC (Bld) [#/Vol] Erythrocytes [#/volume] in Blood by Automated count Low 4.70-6.10 [facility] RBC (Bld) [#/Vol] 3.96 10 6/uL Low 4.70-6.10 [facility] Serum or plasma albumin/glob ulin mass ratioon 07-06-2024 Albumin/Globulin [Mass ratio] Serum or plasma albumin/globulin mass ratio [facility] Albumin/Globulin [Mass ratio] 0.5 {ratio} [facility] Serum or plasma anion gap de terminationon 07-06-2024 Anion gap [Moles/Vol] Serum or plasma an ion gap determination [facility] Anion gap [Moles/Vol] 15.2 [facility] Bas[facility]/100 WBC Manual cnt (Bld)on 07-05-2024 Basophils/100 WBC (Bld) Basophils/100 leukocytes in Blood by Manual count Low 0.2-2.0 [facility] Basophils/100 WBC (Bld) 0.0 % Low 0.2-2.0 [facility] Eosinophils/100 WBC Manual c nt (Bld)on 07-05-2024 Eosinophils/100 WBC (Bld) Eosinophils/100 leukocytes in Blood by Manual count Low 0.9-7.0 [facility] Eosinophils/100 WBC (Bld) 0.0 % Low 0.9-7.0 [facility] Erythrocyte distribution wid th Auto (RBC) [Ratio]on 07-05-2024 Erythrocyte distribution width (RBC) [Ratio] Erythrocyte distribution width [Ratio] by Automated count High 11.0-15.0 [facility] Erythrocyte distribution width (RBC) [Ratio] 16.8 % High 11.0-15.0 [facility] Estimated glomerular filtrat ion rate (GFR) non- Americanon 07-05-2024 GFR/1.73 sq M.predicted among non-blacks MDRD (S/P/Bld) [Vol rate/Area] Estimated glomerular filtration rate (GFR) non- Low >=60 mL/min/1.73m 2 [facility] GFR/1.73 sq M.predicted among non-blacks MDRD (S/P/Bld) [Vol rate/Area] 55 mL/min/{1.73_m2} Low >=60 mL/min/1.73m 2 [facility] Globulin Calc (S) [Mass/Vol] on 07-05-2024 Globulin (S) [Mass/Vol] Serum globulin measurement by calculation (mass/volume) [facility] Globulin (S) [Mass/Vol] 4.7 g/dL [facility] Hematocrit Auto (Bld) [Volum e fraction]on 07-05-2024 Hematocrit (Bld) [Volume fraction] Hematocrit [Volume Fraction] of Blood by Automated count Low 42.0-54.0 [facility] Hematocrit (Bld) [Volume fraction] 37.4 % Low 42.0-54.0 [facility] Hemoglobin [Mass/volume] in Bloodon 07-05-2024 Hemoglobin (Bld) [Mass/Vol] Hemoglobin [Mass/volume] in Blood Low 14.0-18.0 [facility] Hemoglobin (Bld) [Mass/Vol] 12.7 g/dL Low 14.0-18.0 [facility] Laboratory - Chemistry and C hemistry - challengeon 07-05-2024 Albumin [Mass/Vol] 2.2 g/dL Low 3.4-5.0 [facility] ALP [Catalytic activity/Vol] 75 U/L 46-116 [facility] ALT [Catalytic activity/Vol] 72 U/L High 16-63 [facility] AST [Catalytic activity/Vol] 103 U/L High 15-37 [facility] Bilirubin [Mass/Vol] 0.5 mg/dL 0.2-1.0 [facility] Calcium [Mass/Vol] 9.1 mg/dL 8.5-10.1 [facility] Chloride [Moles/Vol] 102 mmol/L 98-107 [facility] CO2 [Moles/Vol] 22.8 mmol/L 21.0-32.0 [facility] Creatinine [Mass/Vol] 1.26 mg/dL 0.70-1.30 [facility] GFR/1.73 sq M.predicted MDRD (S/P/Bld) [Vol rate/Area] mL/min/{1.73_m2} >=60 mL/min/1.73m 2 [facility] Glucose [Mass/Vol] 139 mg/dL High 74-106 [facility] Magnesium [Mass/Vol] 1.9 mg/dL 1.8-2.4 [facility] Potassium [Moles/Vol] 3.7 mmol/L 3.5-5.1 [facility] Protein [Mass/Vol] 6.9 g/dL 6.4-8.2 [facility] Sodium [Moles/Vol] 140 mmol/L 136-145 [facility] Urea nitrogen [Mass/Vol] 46.0 mg/dL High 7.0-18.0 [facility] Urea nitrogen/Creatinine [Mass ratio] 36.5 mg/mg [facility] Laboratory - Hematology and Cell countson 07-05-2024 Lymphocytes/100 WBC (Bld) 8.0 % Low 20.5-60.0 [facility] Monocytes/100 WBC (Bld) 3.0 % 1.7-12.0 [facility] Leukocytes [#/volume] correc constance for nucleated erythrocytes in Blood by Automated counon 07-05-2024 WBC corrected for nucl RBC Auto (Bld) [#/Vol] Leukocytes [#/volume] corrected for nucleated erythrocytes in Blood by Automated coun 4.0-11.0 [facility] WBC corrected for nucl RBC Auto (Bld) [#/Vol] 7.5 10 3/uL 4.0-11.0 [facility] MCH Auto (RBC) [Entitic mass ]on 07-05-2024 MCH (RBC) [Entitic mass] MCH [Entitic ma ss] by Automated count 25.9-34.0 [facility] MCH (RBC) [Entitic mass] 30.8 pg 25.9-34.0 [facility] MCHC Auto (RBC) [Mass/Vol]on 07-05-2024 MCHC (RBC) [Mass/Vol] MCHC [Mass/volume] by Automated count 29.9-35.2 [facility] MCHC (RBC) [Mass/Vol] 34.0 g/dL 29.9-35.2 [facility] MCV Auto (RBC) [Entitic vol] on 07-05-2024 MCV (RBC) [Entitic vol] MCV [Entitic vol ume] by Automated count 80.0-94.0 [facility] MCV (RBC) [Entitic vol] 90.8 fL 80.0-94.0 [facility] No Panel Informationon 07-05 Absolute Basophils (Manual) 0.00 10 3/uL 0.00-0.10 [facility] Eosinophils # (Manual) 0.00 10 3/uL 0.00-0.70 [facility] Lymphocytes # (Manual) 0.60 10 3/uL Low 1.20-3.80 [facility] Monocytes # (Manual) 0.22 10 3/uL Low 0.30-0.80 [facility] Segmented Neutrophils # (Manual) 6.67 10 3/uL High 1.4-6.5 [facility] Platelet mean volume Auto (B ld) [Entitic vol]on 07-05-2024 Platelet mean volume (Bld) [Entitic vol] Platelet mean volume [Entitic volume] in Blood by Automated count 9.5-13.5 [facility] Platelet mean volume (Bld) [Entitic vol] 10.8 fL 9.5-13.5 [facility] Platelets Auto (Bld) [#/Vol] on 07-05-2024 Platelets (Bld) [#/Vol] Platelets [#/vol ume] in Blood by Automated count 150-450 [facility] Platelets (Bld) [#/Vol] 185 10 3/uL 150-450 [facility] RBC Auto (Bld) [#/Vol]on RBC (Bld) [#/Vol] Erythrocytes [#/volume] in Blood by Automated count Low 4.70-6.10 [facility] RBC (Bld) [#/Vol] 4.12 10 6/uL Low 4.70-6.10 [facility] Segmented neutrophils/100 WB C Manual cnt (Bld)on 07-05-2024 Segmented neutrophils/100 WBC (Bld) Manual blood segmented neutrophils/100 leukocytes High 43.0-75.0 [facility] Segmented neutrophils/100 WBC (Bld) 89.0 % High 43.0-75.0 [facility] Serum or plasma albumin/glob ulin mass ratioon 07-05-2024 Albumin/Globulin [Mass ratio] Serum or plasma albumin/globulin mass ratio [facility] Albumin/Globulin [Mass ratio] 0.5 {ratio} [facility] Serum or plasma anion gap de terminationon 07-05-2024 Anion gap [Moles/Vol] Serum or plasma an ion gap determination [facility] Anion gap [Moles/Vol] 18.9 [facility] Basophils/100 WBC Manual cnt (Bld)on 07-04-2024 Basophils/100 WBC (Bld) Basophils/100 leukocytes in Blood by Manual count Low 0.2-2.0 [facility] Basophils/100 WBC (Bld) 0.0 % Low 0.2-2.0 [facility] Eosinophils/100 WBC Manual c nt (Bld)on 07-04-2024 Eosinophils/100 WBC (Bld) Eosinophils/100 leukocytes in Blood by Manual count Low 0.9-7.0 [facility] Eosinophils/100 WBC (Bld) 0.0 % Low 0.9-7.0 [facility] Erythrocyte distribution wid th Auto (RBC) [Ratio]on 07-04-2024 Erythrocyte distribution width (RBC) [Ratio] Erythrocyte distribution width [Ratio] by Automated count High 11.0-15.0 [facility] Erythrocyte distribution width (RBC) [Ratio] 16.5 % High 11.0-15.0 [facility] Estimated glomerular filtrat ion rate (GFR) non- Americanon 07-04-2024 GFR/1.73 sq M.predicted among non-blacks MDRD (S/P/Bld) [Vol rate/Area] Estimated glomerular filtration rate (GFR) non- >=60 mL/min/1.73m 2 [facility] GFR/1.73 sq M.predicted among non-blacks MDRD (S/P/Bld) [Vol rate/Area] mL/min/{1.73_m2} >=60 mL/min/1.73m 2 [facility] Globulin Calc (S) [Mass/Vol] on 07-04-2024 Globulin (S) [Mass/Vol] Serum globulin measurement by calculation (mass/volume) [facility] Globulin (S) [Mass/Vol] 3.9 g/dL [facility] Hematocrit Auto (Bld) [Volum e fraction]on 07-04-2024 Hematocrit (Bld) [Volume fraction] Hematocrit [Volume Fraction] of Blood by Automated count Low 42.0-54.0 [facility] Hematocrit (Bld) [Volume fraction] 33.4 % Low 42.0-54.0 [facility] Hemoglobin [Mass/volume] in Bloodon 07-04-2024 Hemoglobin (Bld) [Mass/Vol] Hemoglobin [Mass/volume] in Blood Low 14.0-18.0 [facility] Hemoglobin (Bld) [Mass/Vol] 11.5 g/dL Low 14.0-18.0 [facility] Laboratory - Chemistry and C hemistry - challengeon 07-04-2024 Albumin [Mass/Vol] 1.8 g/dL Low 3.4-5.0 [facility] ALP [Catalytic activity/Vol] 64 U/L 46-116 [facility] ALT [Catalytic activity/Vol] 52 U/L 16-63 [facility] AST [Catalytic activity/Vol] 127 U/L High 15-37 [facility] Bilirubin [Mass/Vol] 0.7 mg/dL 0.2-1.0 [facility] Calcium [Mass/Vol] 8.4 mg/dL Low 8.5-10.1 [facility] Chloride [Moles/Vol] 105 mmol/L 98-107 [facility] CO2 [Moles/Vol] 24.4 mmol/L 21.0-32.0 [facility] Creatinine [Mass/Vol] 1.13 mg/dL 0.70-1.30 [facility] GFR/1.73 sq M.predicted MDRD (S/P/Bld) [Vol rate/Area] mL/min/{1.73_m2} >=60 mL/min/1.73m 2 [facility] Glucose [Mass/Vol] 82 mg/dL 74-106 [facility] Magnesium [Mass/Vol] 1.7 mg/dL Low 1.8-2.4 [facility] Potassium [Moles/Vol] 4.0 mmol/L 3.5-5.1 [facility] Protein [Mass/Vol] 5.7 g/dL Low 6.4-8.2 [facility] Sodium [Moles/Vol] 140 mmol/L 136-145 [facility] Urea nitrogen [Mass/Vol] 41.0 mg/dL High 7.0-18.0 [facility] Urea nitrogen/Creatinine [Mass ratio] 36.3 mg/mg [facility] Lactate [Moles/Vol] 1.4 mmol/L 0.4-2.0 [facility] Laboratory - Hematology and Cell countson 07-04-2024 Band form neutrophils/100 WBC (Bld) 25.0 % High 0-5 [facility] Lymphocytes/100 WBC (Bld) 19.0 % Low 20.5-60.0 [facility] Monocytes/100 WBC (Bld) 12.0 % 1.7-12.0 [facility] Leukocytes [#/volume] correc constance for nucleated erythrocytes in Blood by Automated counon 07-04-2024 WBC corrected for nucl RBC Auto (Bld) [#/Vol] Leukocytes [#/volume] corrected for nucleated erythrocytes in Blood by Automated coun 4.0-11.0 [facility] WBC corrected for nucl RBC Auto (Bld) [#/Vol] 10.3 10 3/uL 4.0-11.0 [facility] MCH Auto (RBC) [Entitic mass ]on 07-04-2024 MCH (RBC) [Entitic mass] MCH [Entitic ma ss] by Automated count 25.9-34.0 [facility] MCH (RBC) [Entitic mass] 31.3 pg 25.9-34.0 [facility] MCHC Auto (RBC) [Mass/Vol]on 07-04-2024 MCHC (RBC) [Mass/Vol] MCHC [Mass/volume] by Automated count 29.9-35.2 [facility] MCHC (RBC) [Mass/Vol] 34.4 g/dL 29.9-35.2 [facility] MCV Auto (RBC) [Entitic vol] on 07-04-2024 MCV (RBC) [Entitic vol] MCV [Entitic vol ume] by Automated count 80.0-94.0 [facility] MCV (RBC) [Entitic vol] 90.8 fL 80.0-94.0 [facility] No Panel Informationon 07-04 Absolute Basophils (Manual) 0.00 10 3/uL 0.00-0.10 [facility] Band Neutrophils # (Manual) 2.6 10 3/uL High 0.0-0.3 [facility] Eosinophils # (Manual) 0.00 10 3/uL 0.00-0.70 [facility] Lymphocytes # (Manual) 1.95 10 3/uL 1.20-3.80 [facility] Monocytes # (Manual) 1.23 10 3/uL High 0.30-0.80 [facility] Segmented Neutrophils # (Manual) 4.53 10 3/uL 1.4-6.5 [facility] C-Reactive Protein, Quantitative 29.92 mg/dL High <=0.50 [facility] Platelet mean volume Auto (B ld) [Entitic vol]on 07-04-2024 Platelet mean volume (Bld) [Entitic vol] Platelet mean volume [Entitic volume] in Blood by Automated count 9.5-13.5 [facility] Platelet mean volume (Bld) [Entitic vol] 10.9 fL 9.5-13.5 [facility] Platelets Auto (Bld) [#/Vol] on 07-04-2024 Platelets (Bld) [#/Vol] Platelets [#/vol ume] in Blood by Automated count 150-450 [facility] Platelets (Bld) [#/Vol] 152 10 3/uL 150-450 [facility] RBC Auto (Bld) [#/Vol]on RBC (Bld) [#/Vol] Erythrocytes [#/volume] in Blood by Automated count Low 4.70-6.10 [facility] RBC (Bld) [#/Vol] 3.68 10 6/uL Low 4.70-6.10 [facility] Segmented neutrophils/100 WB C Manual cnt (Bld)on 07-04-2024 Segmented neutrophils/100 WBC (Bld) Manual blood segmented neutrophils/100 leukocytes 43.0-75.0 [facility] Segmented neutrophils/100 WBC (Bld) 44.0 % 43.0-75.0 [facility] Serum or plasma albumin/glob ulin mass ratioon 07-04-2024 Albumin/Globulin [Mass ratio] Serum or plasma albumin/globulin mass ratio [facility] Albumin/Globulin [Mass ratio] 0.5 {ratio} [facility] Serum or plasma anion gap de terminationon 07-04-2024 Anion gap [Moles/Vol] Serum or plasma an ion gap determination [facility] Anion gap [Moles/Vol] 14.6 mmol/L Fi [facility] Basophils Auto (Bld) [#/Vol] on 07-03-2024 Basophils (Bld) [#/Vol] Automated basoph il count 0.0-0.1 [facility] Basophils (Bld) [#/Vol] 0.0 10 3/uL 0.0-0.1 [facility] Basophils/100 WBC Auto (Bld) on 07-03-2024 Basophils/100 WBC (Bld) Automated basophil % 0. 2-2.0 [facility] Basophils/100 WBC (Bld) 0.2 % 0.2-2.0 [facility] Eosinophils/100 WBC Auto (Bl d)on 07-03-2024 Eosinophils/100 WBC (Bld) Automated eosinophil % Low 0.9-7.0 [facility] Eosinophils/100 WBC (Bld) 0.0 % Low 0.9-7.0 [facility] Erythrocyte distribution wid th Auto (RBC) [Ratio]on 07-03-2024 Erythrocyte distribution width (RBC) [Ratio] Erythrocyte distribution width [Ratio] by Automated count High 11.0-15.0 [facility] Erythrocyte distribution width (RBC) [Ratio] 16.5 % High 11.0-15.0 [facility] Estimated glomerular filtrat ion rate (GFR) non- Americanon 07-03-2024 GFR/1.73 sq M.predicted among non-blacks MDRD (S/P/Bld) [Vol rate/Area] Estimated glomerular filtration rate (GFR) non- Low >=60 mL/min/1.73m 2 [facility] GFR/1.73 sq M.predicted among non-blacks MDRD (S/P/Bld) [Vol rate/Area] 52 mL/min/{1.73_m2} Low >=60 mL/min/1.73m 2 [facility] Hematocrit Auto (Bld) [Volum e fraction]on 07-03-2024 Hematocrit (Bld) [Volume fraction] Hematocrit [Volume Fraction] of Blood by Automated count Low 42.0-54.0 [facility] Hematocrit (Bld) [Volume fraction] 36.5 % Low 42.0-54.0 [facility] Hemoglobin [Mass/volume] in Bloodon 07-03-2024 Hemoglobin (Bld) [Mass/Vol] Hemoglobin [Mass/volume] in Blood Low 14.0-18.0 [facility] Hemoglobin (Bld) [Mass/Vol] 12.3 g/dL Low 14.0-18.0 [facility] Laboratory - Chemistry and C hemistry - challengeon 07-03-2024 Lactate [Moles/Vol] 1.6 mmol/L 0.4-2.0 [facility] Bilirubin Ql (U) SMALL Abnormal NEGATIVE [facility] Glucose (U) [Mass/Vol] Negative NEGATIVE [facility] Ketones Ql (U) TRACE mg/dL Abnormal NEGATIVE [facility] pH (U) 6.0 [pH] 5.0-9.0 [facility] Specific gravity (U) [Rel density] 1.025 1.005-1.025 [facility] Urobilinogen Qn (U) 1.0 {Ren'U}/dL 0.2-1.0 [facility] Calcium [Mass/Vol] 8.7 mg/dL 8.5-10.1 [facility] Chloride [Moles/Vol] 103 mmol/L 98-107 [facility] CO2 [Moles/Vol] 24.2 mmol/L 21.0-32.0 [facility] Creatinine [Mass/Vol] 1.32 mg/dL High 0.70-1.30 [facility] GFR/1.73 sq M.predicted MDRD (S/P/Bld) [Vol rate/Area] mL/min/{1.73_m2} >=60 mL/min/1.73m 2 [facility] Glucose [Mass/Vol] 105 mg/dL 74-106 [facility] Potassium [Moles/Vol] 4.1 mmol/L 3.5-5.1 [facility] Sodium [Moles/Vol] 138 mmol/L 136-145 [facility] Urea nitrogen [Mass/Vol] 37.0 mg/dL High 7.0-18.0 [facility] Urea nitrogen/Creatinine [Mass ratio] 28.0 mg/mg [facility] Laboratory - Hematology and Cell countson 07-03-2024 Immature granulocytes/100 WBC (Bld) 1.0 % High 0.0-0.5 [facility] Laboratory - Microbiology an d Antimicrobial susceptibilityon 07-03-2024 SARS-CoV-2 (COVID-19) RNA ELENA+probe Ql (Unsp spec) Negative NEGATIVE [facility] Comment on above: This test has not [...] of Covid-19 under section 564(b)(1) of theAct, 21 U.S.C. 360bbb-3(b)(1), unless the declaration isterminated or authorization is revoked sooner. Laboratory - Specimen inform ationon 07-03-2024 Appearance (U) CLEAR CLEAR [facility] Color (U) DK. YELLOW YELLOW [facility] Laboratory - Urinalysison Hyaline casts LM Ql (Urine sed) FEW [facility] Leukocyte esterase Test strip Ql (U) Negative NEGATIVE [facility] Mucus Ql (Urine sed) TRACE Abnormal NONE SEEN [facility] Nitrite Ql (U) Negative NEGATIVE [facility] Protein Ql (U) 30 mg/dL Abnormal NEG/TRACE [facility] Leukocytes [#/volume] correc constance for nucleated erythrocytes in Blood by Automated counon 07-03-2024 WBC corrected for nucl RBC Auto (Bld) [#/Vol] Leukocytes [#/volume] corrected for nucleated erythrocytes in Blood by Automated coun 4.0-11.0 [facility] WBC corrected for nucl RBC Auto (Bld) [#/Vol] 8.3 10 3/uL 4.0-11.0 [facility] Lymphocytes Auto (Bld) [#/Vo l]on 07-03-2024 Lymphocytes (Bld) [#/Vol] Lymphocytes [#/volume] in Blood by Automated count Low 1.2-3.8 [facility] Lymphocytes (Bld) [#/Vol] 0.9 10 3/uL Low 1.2-3.8 [facility] Lymphocytes/100 WBC Auto (Bl d)on 07-03-2024 Lymphocytes/100 WBC (Bld) Lymphocytes/100 leukocytes in Blood by Automated count Low 20.5-60.0 [facility] Lymphocytes/100 WBC (Bld) 11.0 % Low 20.5-60.0 [facility] MCH Auto (RBC) [Entitic mass ]on 07-03-2024 MCH (RBC) [Entitic mass] MCH [Entitic ma ss] by Automated count 25.9-34.0 [facility] MCH (RBC) [Entitic mass] 30.8 pg 25.9-34.0 [facility] MCHC Auto (RBC) [Mass/Vol]on 07-03-2024 MCHC (RBC) [Mass/Vol] MCHC [Mass/volume] by Automated count 29.9-35.2 [facility] MCHC (RBC) [Mass/Vol] 33.7 g/dL 29.9-35.2 [facility] MCV Auto (RBC) [Entitic vol] on 07-03-2024 MCV (RBC) [Entitic vol] MCV [Entitic vol ume] by Automated count 80.0-94.0 [facility] MCV (RBC) [Entitic vol] 91.3 fL 80.0-94.0 [facility] Monocytes Auto (Bld) [#/Vol] on 07-03-2024 Monocytes (Bld) [#/Vol] Automated blood monocyte count 0.3-0.8 [facility] Monocytes (Bld) [#/Vol] 0.3 10 3/uL 0.3-0.8 [facility] Monocytes/100 WBC Auto (Bld) on 07-03-2024 Monocytes/100 WBC (Bld) Automated monocyte % 1. 7-12.0 [facility] Monocytes/100 WBC (Bld) 3.4 % 1.7-12.0 [facility] Neutrophils Auto (Bld) [#/Vo l]on 07-03-2024 Neutrophils (Bld) [#/Vol] Neutrophils [#/volume] in Blood by Automated count High 1.4-6.5 [facility] Neutrophils (Bld) [#/Vol] 7.0 10 3/uL High 1.4-6.5 [facility] Neutrophils/100 WBC Auto (Bl d)on 07-03-2024 Neutrophils/100 WBC (Bld) Automated neutrophil % High 43.0-75.0 [facility] Neutrophils/100 WBC (Bld) 84.4 % High 43.0-75.0 [facility] No Panel InformationOrdered By: Rex Gates on 07-03-2024 Anaerobe Identification Only [facility] No Panel Informationon 07-03 Urine Bacteria SMALL #/HPF Abnormal NONE SEEN [facility] Urine Culture Reflexed YES-[facility] Urine Occult Blood SMALL Abnormal NEGATIVE [facility] Urine Other Casts SEEN #/LPF Abnormal NONE SEEN [facility] Urine Other Crystals None Seen #/HPF None Seen [facility] Urine RBC 2-5 #/HPF Abnormal 0-2 [facility] Urine Squamous Epithelial Cells RARE #/LPF NONE/RARE [facility] Urine WBC 0-2 #/HPF Abnormal NONE SEEN [facility] Eosinophils # (Auto) 0.0 10 3/uL 0.0-0.7 [facility] Immature Granulocyte # (Auto) 0.08 10 3/uL High 0.00-0.03 [facility] Bedside Influenza Type A Antigen Negative [facility] Comment on above: Negative for Flu A p rotein antigen. Infection due to Flu Acannot be ruled out. Flu A antigen in the sample may bebelow the detection limit of the test. Bedside Influenza Type B Antigen Negative [facility] Comment on above: Negative for Flu B p rotein antigen. Infection due to Flu Bcannot be ruled out. Flu B antigen in the sample may bebelow the detection limit of the test. Platelet mean volume Auto (B ld) [Entitic vol]on 07-03-2024 Platelet mean volume (Bld) [Entitic vol] Platelet mean volume [Entitic volume] in Blood by Automated count 9.5-13.5 [facility] Platelet mean volume (Bld) [Entitic vol] 10.6 fL 9.5-13.5 [facility] Platelets Auto (Bld) [#/Vol] on 07-03-2024 Platelets (Bld) [#/Vol] Platelets [#/vol ume] in Blood by Automated count 150-450 [facility] Platelets (Bld) [#/Vol] 151 10 3/uL 150-450 [facility] RBC Auto (Bld) [#/Vol]on RBC (Bld) [#/Vol] Erythrocytes [#/volume] in Blood by Automated count Low 4.70-6.10 [facility] RBC (Bld) [#/Vol] 4.00 10 6/uL Low 4.70-6.10 [facility] Serum or plasma anion gap de terminationon 07-03-2024 Anion gap [Moles/Vol] Serum or plasma an ion gap determination [facility] Anion gap [Moles/Vol] 14.9 mmol/L [facility] Urine Cultureon 07-03-2024 Bacteria identified Cx Nom (U) 20,000 colonies/ml mixed bacterial skin contaminants 2 Days PERFORMED BY: [facility] [address] [place] [address] PATHOLOGIST STATIC BALANCER JOSÉ LUIS SADLER M.D. Normal [facility] Comment on above: Performed By: #### E SR, CMP, B12, CBC, MG #### [facility] [address] Urine cultureOrdered By: Helio Bartlett on 05-25-2025 Bacteria identified Cx Nom (U) Urine culture [facility] Bacteria identified Cx Nom (U) 2 Days [facility] No Panel InformationOrdered By: Vickey Moeller on 06-06-2024 Miscellaneous Pathology Test See comment [facility] Comment on above: See report. Scanned copy available in EMR. Pathology Request for Lab Co rpon 06-06-2024 Pathology Request for Lab Malina Normal [facility] Comment on above: Order Comment: PATH SPECIMEN- GI Result Comment: See report. Scanned copy available in EMR. PERFORMED BY: [place] [address] PATHOLOGIST STATIC BALANCER DEE JENNINGS M.D. Performed By: #### E SR, CMP, B12, CBC, MG #### [address] Laboratory - Chemistry and C hemistry - challengeon 05-30-2024 Natriuretic peptide B (Bld) [Mass/Vol] 213.0 pg/mL <=1800.0 [facility] Microalbumin [Mass/volume] i n Urineon 05-30-2024 Albumin DL <= 20 mg/L (U) [Mass/Vol] Microalbumin [Mass/volume] in Urine <=30.0 [facility] Albumin DL <= 20 mg/L (U) [Mass/Vol] 4.9 mg/dL <=30.0 [facility] No Panel Informationon 05-30 Urine Random Creatinine 87.79 mg/dL 20.00-300.0 0 [facility] Thyroid stimulating immunogl obulin (TSI) measurementon 05-30-2024 Thyroid stimulating immunoglobulins actual/normal (S) [Relative mass conc] Thyroid stimulating immunoglobulin (TSI) measurement 0.00-0.55 [facility] Comment on above: Performed at: [facility] [id number] Director: Susana Beauchamp MD, Phone: [phone] Thyroid stimulating immunoglobulins actual/normal (S) [Relative mass conc] <0.10 IU/L 0.00-0.55 [facility] Comment on above: Performed at: [facility] [place], [place] [id number] Director: Susana Beauchamp MD, Phone: [phone] Urine microalbumin/creatinin e mass ratioon 05-30-2024 Albumin/Creatinine DL <= 20 mg/L (U) [Mass ratio] Urine microalbumin/creatini ne mass ratio High 0.0-29.9 [facility] Comment on above: NO MICROALBUMINURIA 0-29 MG/GCLINICAL MICROALBUMINURIA 30-300 MG/GMACROALBUMINURIA >300 MG/G Albumin/Creatinine DL <= 20 mg/L (U) [Mass ratio] 55.8 mg/g High 0.0-29.9 [facility] Comment on above: NO MICROALBUMINURIA 0-29 MG/GCLINICAL MICROALBUMINURIA 30-300 MG/GMACROALBUMINURIA >300 MG/G Alanine aminotransferase [En zymatic activity/volume] in Serum or PlasmaOrdered By: Clarke Bertrand on 05-11-2024 ALT [Catalytic activity/Vol] Alanine aminotransferase [Enzymatic activity/volume] in Serum or Plasma [facility] Albumin [Mass/volume] in Ser um or Plasma by Bromocresol green (BCG) dye binding methoOrdered By: Clarke Bertrand on 05-11-2024 Albumin BCG dye [Mass/Vol] Albumin [Mass/volume] in Serum or Plasma by Bromocresol green (BCG) dye binding metho 3.5-5.7 [facility] Alkaline phosphatase [Enzyma tic activity/volume] in Serum or PlasmaOrdered By: lCarke Bertrand on 05-11-2024 ALP [Catalytic activity/Vol] Alkaline phosphatase [Enzymatic activity/volume] in Serum or Plasma 34-104 [facility] Aspartate aminotransferase [ Enzymatic activity/volume] in Serum or PlasmaOrdered By: Clarke Bertrand on 05-11-2024 AST [Catalytic activity/Vol] Aspartate aminotransferase [Enzymatic activity/volume] in Serum or Plasma 13-39 [facility] Basophils Auto (Bld) [#/Vol] Ordered By: Clarke Bertrand on 05-11-2024 Basophils (Bld) [#/Vol] Automated basoph il count 0.0-0.2 [facility] Basophils/100 WBC Auto (Bld) Ordered By: Clarke Bertrand on 05-11-2024 Basophils/100 WBC (Bld) Automated basophil % . [facility] Bilirubin.total [Mass/volume ] in Serum or PlasmaOrdered By: Clarke Bertrand on 05-11-2024 Bilirubin [Mass/Vol] Bilirubin.total [Mass/volume] in Serum or Plasma 0.3-1.0 [facility] Calcium [Mass/volume] in Ser um or PlasmaOrdered By: Clarke Bertrand on 05-11-2024 Calcium [Mass/Vol] Calcium [Mass/volume ] in Serum or Plasma 8.6-10.3 [facility] Carbon dioxide, total [Moles /volume] in Serum or PlasmaOrdered By: Clarke Bertrand on 05-11-2024 CO2 [Moles/Vol] Carbon dioxide, tota l [Moles/volume] in Serum or Plasma 21.0-31.0 [facility] Chloride [Moles/volume] in S jessica or PlasmaOrdered By: Clarke Bertrand on 05-11-2024 Chloride [Moles/Vol] Chloride [Moles/volume] in Serum or Plasma 98-107 [facility] Complete Blood Count Auto Di ffon 05-11-2024 Basophils (Bld) [#/Vol] 0.0 10*3/uL Normal 0.0-0.2 [facility] Comment on above: Performed By: #### E SR, CMP, B12, CBC, MG #### [facility] [address] [place] [id number] [place] Basophils/100 WBC (Bld) 0.4 % Normal . T ayan [facility] Comment on above: Performed By: #### E SR, CMP, B12, CBC, MG #### [facility] [address] [place] [address] [place] Eosinophils (Bld) [#/Vol] 0.1 10*3/uL Normal 0.0-0.45 [facility] Comment on above: Performed By: #### E SR, CMP, B12, CBC, MG #### [facility] [address] [place] [id number] [place] Eosinophils/100 WBC (Bld) 1.3 % Normal . [facility] Comment on above: Performed By: #### E SR, CMP, B12, CBC, MG #### [address] Erythrocyte distribution width (RBC) [Ratio] 18.2 % High 12.0-14.8 [facility] Comment on above: Performed By: #### E SR, CMP, B12, CBC, MG #### [address] Hematocrit (Bld) [Volume fraction] 40.5 % Normal 38.8-50.0 [facility] Comment on above: Performed By: #### E SR, CMP, B12, CBC, MG #### [address] Hemoglobin (Bld) [Mass/Vol] 13.6 g/dL Normal 13.0-17.0 [facility] Comment on above: Performed By: #### E SR, CMP, B12, CBC, MG #### [address] Lymphocytes (Bld) [#/Vol] 1.1 10*3/uL Normal 1.00-4.8 [facility] Comment on above: Performed By: #### E SR, CMP, B12, CBC, MG #### [address] Lymphocytes/100 WBC (Bld) 16.9 % Normal . [facility] Comment on above: Performed By: #### E SR, CMP, B12, CBC, MG #### [address] MCH (RBC) [Entitic mass] 30.5 pg Normal 27.5-35.2 [facility] Comment on above: Performed By: #### E SR, CMP, B12, CBC, MG #### [address] MCV (RBC) [Entitic vol] 91.1 fL Normal 83.5-101 [facility] Comment on above: Performed By: #### E SR, CMP, B12, CBC, MG #### [address] Mean Corpuscular HGB Conc 33.5 g/dL Normal 32.5-35.6 [facility] Comment on above: Performed By: #### E SR, CMP, B12, CBC, MG #### [address] Monocytes (Bld) [#/Vol] 0.9 10*3/uL High 0.0-0.8 [facility] Comment on above: Performed By: #### E SR, CMP, B12, CBC, MG #### [address] Monocytes/100 WBC (Bld) 13.9 % Normal . T ayan [facility] Comment on above: Performed By: #### E SR, CMP, B12, CBC, MG #### [address] Neutrophils (Bld) [#/Vol] 4.3 10*3/uL Normal 1.8-7.7 [facility] Comment on above: Performed By: #### E SR, CMP, B12, CBC, MG #### [address] Neutrophils/100 WBC (Bld) 67.5 % Normal . [facility] Comment on above: Performed By: #### E SR, CMP, B12, CBC, MG #### [address] NRBC% 0.1 /100{WBC} Normal 0-0.5 [facility] Comment on above: Performed By: #### E SR, CMP, B12, CBC, MG #### [address] Platelet mean volume (Bld) [Entitic vol] 9.1 fL Normal 6.6-10.1 [facility] Comment on above: Performed By: #### E SR, CMP, B12, CBC, MG #### [place] [address] [place] Platelets (Bld) [#/Vol] 183 10*3/uL Normal 150-450 [facility] Comment on above: Performed By: #### E SR, CMP, B12, CBC, MG #### [address] RBC (Bld) [#/Vol] 4.44 10*6/uL Normal 3.90-5.60 [facility] Comment on above: Performed By: #### E SR, CMP, B12, CBC, MG #### [address] WBC (Bld) [#/Vol] 6.3 10*3/uL Normal 4.1-10.5 [facility] Comment on above: Performed By: #### E SR, CMP, B12, CBC, MG #### [address] Comprehensive Metabolic Pane chong 05-11-2024 Albumin [Mass/Vol] 3.5 g/dL Normal 3.5-5.7 [facility] Comment on above: Performed By: #### E SR, CMP, B12, CBC, MG #### [address] Albumin/Globulin [Mass ratio] 1.1 {ratio} Normal [facility] Comment on above: Performed By: #### E SR, CMP, B12, CBC, MG #### [address] ALP [Catalytic activity/Vol] 86 U/L Normal 34-104 [facility] Comment on above: Result Comment: PERF ORMED BY: [place] [address] PATHOLOGIST STATIC BALANCER DEE JENNINGS M.D. Performed By: #### E SR, CMP, B12, CBC, MG #### [address] ALT [Catalytic activity/Vol] 14 U/L Normal 7-52 [facility] Comment on above: Performed By: #### E SR, CMP, B12, CBC, MG #### [address] [address] [place] Anion gap [Moles/Vol] 14.5 mmol/L Normal 6.0-15.0 [facility] Comment on above: Performed By: #### E SR, CMP, B12, CBC, MG #### [address] AST [Catalytic activity/Vol] 18 U/L Normal 13-39 [facility] Comment on above: Performed By: #### E SR, CMP, B12, CBC, MG #### [address] Bilirubin [Mass/Vol] 0.7 mg/dL Normal 0.3-1.0 [facility] Comment on above: Performed By: #### E SR, CMP, B12, CBC, MG #### [address] Calcium [Mass/Vol] 8.7 mg/dL Normal 8.6-10.3 [facility] Comment on above: Performed By: #### E SR, CMP, B12, CBC, MG #### [address] Chloride [Moles/Vol] 105 mmol/L Normal 98-107 [facility] Comment on above: Performed By: #### E SR, CMP, B12, CBC, MG #### [address] CO2 [Moles/Vol] 23.0 mmol/L Normal 21.0-31.0 [facility] Comment on above: Performed By: #### E SR, CMP, B12, CBC, MG #### [address] Creatinine [Mass/Vol] 0.64 mg/dL Low 0.70-1.30 [facility] Comment on above: Performed By: #### E SR, CMP, B12, CBC, MG #### [address] [address] GFR/1.73 sq M.predicted MDRD (S/P/Bld) [Vol rate/Area] mL/min/{1.73_m2} Normal [facility] Comment on above: Performed By: #### E SR, CMP, B12, CBC, MG #### [facility] [address] Globulin (S) [Mass/Vol] 3.1 g/dL Normal [facility] Comment on above: Performed By: #### E SR, CMP, B12, CBC, MG #### [address] Glucose [Mass/Vol] 96 mg/dL Normal 70-100 [facility] Comment on above: Result Comment: [facility] Glucose Reference Range is dependent on time and content of last meal. Glucose of more than 200 mg/dL in a nonstressed, ambulatory subject supports the diagnosis of Diabetes Mellitus. ADA recommended reference range Performed By: #### E SR, CMP, B12, CBC, MG #### [address] Potassium [Moles/Vol] 3.5 mmol/L Normal 3.5-5.1 [facility] Comment on above: Performed By: #### E SR, CMP, B12, CBC, MG #### [address] Protein [Mass/Vol] 6.6 g/dL Normal 6.4-8.9 [facility] Comment on above: Performed By: #### E SR, CMP, B12, CBC, MG #### [address] Sodium [Moles/Vol] 139 mmol/L Normal 136-145 [facility] Comment on above: Performed By: #### E SR, CMP, B12, CBC, MG #### [place] [address] [place] Urea nitrogen [Mass/Vol] 10 mg/dL Normal 7-25 [facility] Comment on above: Performed By: #### E SR, CMP, B12, CBC, MG #### [address] Creatinine [Mass/volume] in Serum or PlasmaOrdered By: Clarke Bertrand on 05-11-2024 Creatinine [Mass/Vol] Creatinine [Mass/volume] in Serum or Plasma Low 0.70-1.30 [facility] Eosinophils Auto (Bld) [#/Vo l]Ordered By: Clarke Bertrand on 05-11-2024 Eosinophils (Bld) [#/Vol] Automated eosinophil count 0.0-0.45 [facility] Eosinophils/100 WBC Auto (Bl d)Ordered By: Clarke Bertrand on 05-11-2024 Eosinophils/100 WBC (Bld) Automated eosinophil % . [facility] Erythrocyte Sedimentation Ra basilio 05-11-2024 ESR (Bld) [Velocity] 74 mm/h High 0-19 [facility] Comment on above: Result Comment: PERF ORMED BY: [place] [address] PATHOLOGIST STATIC BALANCER DEE JENNINGS M.D. Performed By: #### E SR, CMP, B12, CBC, MG #### [facility] [address] Erythrocyte distribution wid th Auto (RBC) [Ratio]Ordered By: Clarke Bertrand on 05-11-2024 Erythrocyte distribution width (RBC) [Ratio] Erythrocyte distribution width [Ratio] by Automated count High 12.0-14.8 [facility] Erythrocyte sedimentation ra te by Photometric methodOrdered By: Clarke Bertrand on 05-11-2024 ESR Photometric method (Bld) [Velocity] Erythrocyte sedimentation rate by Photometric method High 0-19 [facility] Globulin Calc (S) [Mass/Vol] Ordered By: Clarke Bertrand on 05-11-2024 Globulin (S) [Mass/Vol] Serum globulin measurement by calculation (mass/volume) [facility] Glucose [Mass/volume] in Ser um or PlasmaOrdered By: Clarke Bertrand on 05-11-2024 Glucose [Mass/Vol] Glucose [Mass/volume ] in Serum or Plasma 70-100 [facility] Comment on above: ADA recommended refe rence rangeRandom Glucose Reference Range is dependent on time and content of last meal. Glucose of more than 200 mg/dL in a nonstressed, ambulatory subject supports the diagnosis of Diabetes Mellitus. Hematocrit Auto (Bld) [Volum e fraction]Ordered By: Clarke Bertrand on 05-11-2024 Hematocrit (Bld) [Volume fraction] Hematocrit [Volume Fraction] of Blood by Automated count 38.8-50.0 [facility] Hemoglobin [Mass/volume] in BloodOrdered By: Clarke Bertrand on 05-11-2024 Hemoglobin (Bld) [Mass/Vol] Hemoglobin [Mass/volume] in Blood 13.0-17.0 [facility] Leukocytes [#/volume] correc constance for nucleated erythrocytes in Blood by Automated counOrdered By: Clarke Bertrand on 05-11-2024 WBC corrected for nucl RBC Auto (Bld) [#/Vol] Leukocytes [#/volume] corrected for nucleated erythrocytes in Blood by Automated coun 4.1-10.5 [facility] Lymphocytes Auto (Bld) [#/Vo l]Ordered By: Clarke Bertrand on 05-11-2024 Lymphocytes (Bld) [#/Vol] Lymphocytes [#/volume] in Blood by Automated count 1.00-4.8 [facility] Lymphocytes/100 WBC Auto (Bl d)Ordered By: Clarke Bertrand on 05-11-2024 Lymphocytes/100 WBC (Bld) Lymphocytes/100 leukocytes in Blood by Automated count . [facility] MCH Auto (RBC) [Entitic mass ]Ordered By: Clarke Bertrand on 05-11-2024 MCH (RBC) [Entitic mass] MCH [Entitic ma ss] by Automated count 27.5-35.2 [facility] MCHC Auto (RBC) [Mass/Vol]Or dered By: Clarke Bertrand on 05-11-2024 MCHC (RBC) [Mass/Vol] MCHC [Mass/volume] by Automated count 32.5-35.6 [facility] MCV Auto (RBC) [Entitic vol] Ordered By: Clarke Bertrand on 05-11-2024 MCV (RBC) [Entitic vol] MCV [Entitic vol ume] by Automated count 83.5-101 [facility] Monocytes Auto (Bld) [#/Vol] Ordered By: Clarke Bertrand on 05-11-2024 Monocytes (Bld) [#/Vol] Automated blood monocyte count High 0.0-0.8 [facility] Monocytes/100 WBC Auto (Bld) Ordered By: Clarke Bertrand on 05-11-2024 Monocytes/100 WBC (Bld) Automated monocyte % . [facility] Neutrophils Auto (Bld) [#/Vo l]Ordered By: Clarke Bertrand on 05-11-2024 Neutrophils (Bld) [#/Vol] Neutrophils [#/volume] in Blood by Automated count 1.8-7.7 [facility] Neutrophils/100 WBC Auto (Bl d)Ordered By: Clarke Bertrand on 05-11-2024 Neutrophils/100 WBC (Bld) Automated neutrophil % . [facility] No Panel InformationOrdered By: Clarke Bertrand on 05-11-2024 Estimated GFR (CKD-EPI) > 60.0 mL/Min [facility] Creatinine Clearance (Chem N/A [facility] Nucleated erythrocytes [Pres ence] in Blood by Automated countOrdered By: Clarke Bertrand on 05-11-2024 Nucleated RBC Auto Ql (Bld) Nucleated erythrocytes [Presence] in Blood by Automated count 0-0.5 [facility] Platelet mean volume Auto (B ld) [Entitic vol]Ordered By: Clarke Bertrand on 05-11-2024 Platelet mean volume (Bld) [Entitic vol] Platelet mean volume [Entitic volume] in Blood by Automated count 6.6-10.1 [facility] Platelets Auto (Bld) [#/Vol] Ordered By: Clarke Bertrand on 05-11-2024 Platelets (Bld) [#/Vol] Platelets [#/vol ume] in Blood by Automated count 150-450 [facility] Potassium [Moles/volume] in Serum or PlasmaOrdered By: Clarke Bertrand on 05-11-2024 Potassium [Moles/Vol] Potassium [Moles/volume] in Serum or Plasma 3.5-5.1 [facility] Protein [Mass/volume] in Ser um or PlasmaOrdered By: Clarke Bertrand on 05-11-2024 Protein [Mass/Vol] Protein [Mass/volume ] in Serum or Plasma 6.4-8.9 [facility] RBC Auto (Bld) [#/Vol]Ordere d By: Clarke Bertrand on 05-11-2024 RBC (Bld) [#/Vol] Erythrocytes [#/volume] in Blood by Automated count 3.90-5.60 [facility] Serum or plasma albumin/glob ulin mass ratioOrdered By: Clarke Bertrand on 05-11-2024 Albumin/Globulin [Mass ratio] Serum or plasma albumin/globulin mass ratio [facility] Serum or plasma anion gap de terminationOrdered By: Clarke Bertrand on 05-11-2024 Anion gap [Moles/Vol] Serum or plasma an ion gap determination 6.0-15.0 [facility] Sodium [Moles/volume] in Ser um or PlasmaOrdered By: Clarke Bertrand on 05-11-2024 Sodium [Moles/Vol] Sodium [Moles/volume ] in Serum or Plasma 136-145 [facility] Urea nitrogen [Mass/volume] in Serum or PlasmaOrdered By: Clarke Bertrand on 05-11-2024 Urea nitrogen [Mass/Vol] Urea nitrogen [Mass/volume] in Serum or Plasma 09-02 [facility] WBC Auto (Bld) [#/Vol]Ordere d By: Clarke Bertrand on 05-11-2024 WBC (Bld) [#/Vol] Leukocytes [#/volume ] in Blood by Automated count 4.1-10.5 [facility] Influenza virus B Ag [Presen ce] in Upper respiratory specimen by Rapid immunoassayon 04-20-2024 FLUBV Ag IA.rapid Ql (Nph) Influenza virus B Ag [Presence] in Upper respiratory specimen by Rapid immunoassay [facility] No Panel Informationon 04-20 Influenza Type A (Rapid) Positive [facility] POC SARS CoV-2 Antigen Negative [facility] Alanine aminotransferase [En zymatic activity/volume] in Serum or PlasmaOrdered By: Clarke Bertrand on 02-24-2024 ALT [Catalytic activity/Vol] Alanine aminotransferase [Enzymatic activity/volume] in Serum or Plasma [facility] Albumin [Mass/volume] in Ser um or Plasma by Bromocresol green (BCG) dye binding methoOrdered By: Clarke Bertrand on 02-24-2024 Albumin BCG dye [Mass/Vol] Albumin [Mass/volume] in Serum or Plasma by Bromocresol green (BCG) dye binding metho 3.5-5.7 [facility] Alkaline phosphatase [Enzyma tic activity/volume] in Serum or PlasmaOrdered By: Clarke Bertrand on 02-24-2024 ALP [Catalytic activity/Vol] Alkaline phosphatase [Enzymatic activity/volume] in Serum or Plasma 34-104 [facility] Aspartate aminotransferase [ Enzymatic activity/volume] in Serum or PlasmaOrdered By: Clarke Bertrand on 02-24-2024 AST [Catalytic activity/Vol] Aspartate aminotransferase [Enzymatic activity/volume] in Serum or Plasma 13-39 [facility] Basophils Auto (Bld) [#/Vol] Ordered By: Clarke Bertrand on 02-24-2024 Basophils (Bld) [#/Vol] Automated basoph il count 0.0-0.2 [facility] Basophils/100 WBC Auto (Bld) Ordered By: Clarke Bertrand on 02-24-2024 Basophils/100 WBC (Bld) Automated basophil % . [facility] Bilirubin.total [Mass/volume ] in Serum or PlasmaOrdered By: Clarke Bertrand on 02-24-2024 Bilirubin [Mass/Vol] Bilirubin.total [Mass/volume] in Serum or Plasma 0.3-1.0 [facility] Calcium [Mass/volume] in Ser um or PlasmaOrdered By: Clarke Bertrand on 02-24-2024 Calcium [Mass/Vol] Calcium [Mass/volume ] in Serum or Plasma 8.6-10.3 [facility] Carbon dioxide, total [Moles /volume] in Serum or PlasmaOrdered By: Clarke Bertrand on 02-24-2024 CO2 [Moles/Vol] Carbon dioxide, tota l [Moles/volume] in Serum or Plasma 21.0-31.0 [facility] Chloride [Moles/volume] in S jessica or PlasmaOrdered By: Clarke Bertrand on 02-24-2024 Chloride [Moles/Vol] Chloride [Moles/volume] in Serum or Plasma 98-107 [facility] Complete Blood Count Auto Di ffon 02-24-2024 Basophils (Bld) [#/Vol] 0.0 10*3/uL Normal 0.0-0.2 [facility] Comment on above: Performed By: #### E SR, CMP, B12, CBC, MG #### [address] Basophils/100 WBC (Bld) 0.5 % Normal . [facility] Comment on above: Performed By: #### E SR, CMP, B12, CBC, MG #### [address] Eosinophils (Bld) [#/Vol] 0.3 10*3/uL Normal 0.0-0.45 [facility] Comment on above: Performed By: #### E SR, CMP, B12, CBC, MG #### [address] Eosinophils/100 WBC (Bld) 4.1 % Normal . [facility] Comment on above: Performed By: #### E SR, CMP, B12, CBC, MG #### [address] Erythrocyte distribution width (RBC) [Ratio] 17.4 % High 12.0-14.8 [facility] Comment on above: Performed By: #### E SR, CMP, B12, CBC, MG #### [address] Hematocrit (Bld) [Volume fraction] 42.5 % Normal 38.8-50.0 [facility] Comment on above: Performed By: #### E SR, CMP, B12, CBC, MG #### [address] Hemoglobin (Bld) [Mass/Vol] 14.2 g/dL Normal 13.0-17.0 [facility] Comment on above: Performed By: #### E SR, CMP, B12, CBC, MG #### [address] Lymphocytes (Bld) [#/Vol] 1.4 10*3/uL Normal 1.00-4.8 [facility] Comment on above: Performed By: #### E SR, CMP, B12, CBC, MG #### [address] Lymphocytes/100 WBC (Bld) 21.7 % Normal . [facility] Comment on above: Performed By: #### E SR, CMP, B12, CBC, MG #### [address] MCH (RBC) [Entitic mass] 30.1 pg Normal 27.5-35.2 [facility] Comment on above: Performed By: #### E SR, CMP, B12, CBC, MG #### [address] MCV (RBC) [Entitic vol] 90.1 fL Normal 83.5-101 [facility] Comment on above: Performed By: #### E SR, CMP, B12, CBC, MG #### [address] Mean Corpuscular HGB Conc 33.4 g/dL Normal 32.5-35.6 [facility] Comment on above: Performed By: #### E SR, CMP, B12, CBC, MG #### [address] Monocytes (Bld) [#/Vol] 0.7 10*3/uL Normal 0.0-0.8 [facility] Comment on above: Performed By: #### E SR, CMP, B12, CBC, MG #### [address] Monocytes/100 WBC (Bld) 11.7 % Normal . [facility] Comment on above: Performed By: #### E SR, CMP, B12, CBC, MG #### [address] Neutrophils (Bld) [#/Vol] 3.9 10*3/uL Normal 1.8-7.7 [facility] Comment on above: Performed By: #### E SR, CMP, B12, CBC, MG #### [address] Neutrophils/100 WBC (Bld) 62.0 % Normal . [facility] Comment on above: Performed By: #### E SR, CMP, B12, CBC, MG #### [address] NRBC% 0.1 /100{WBC} Normal 0-0.5 [facility] Comment on above: Performed By: #### E SR, CMP, B12, CBC, MG #### [address] Platelet mean volume (Bld) [Entitic vol] 8.9 fL Normal 6.6-10.1 [facility] Comment on above: Performed By: #### E SR, CMP, B12, CBC, MG #### [address] Platelets (Bld) [#/Vol] 218 10*3/uL Normal 150-450 [facility] Comment on above: Performed By: #### E SR, CMP, B12, CBC, MG #### [address] RBC (Bld) [#/Vol] 4.72 10*6/uL Normal 3.90-5.60 [facility] Comment on above: Performed By: #### E SR, CMP, B12, CBC, MG #### [address] WBC (Bld) [#/Vol] 6.3 10*3/uL Normal 4.1-10.5 [facility] Comment on above: Performed By: #### E SR, CMP, B12, CBC, MG #### [address] Comprehensive Metabolic Pane chong 02-24-2024 Albumin [Mass/Vol] 3.8 g/dL Normal 3.5-5.7 [facility] Comment on above: Performed By: #### E SR, CMP, B12, CBC, MG #### [address] Albumin/Globulin [Mass ratio] 1.1 {ratio} Normal [facility] Comment on above: Performed By: #### E SR, CMP, B12, CBC, MG #### [address] ALP [Catalytic activity/Vol] 87 U/L Normal 34-104 [facility] Comment on above: Result Comment: PERF ORMED BY: [place] [address] PATHOLOGIST STATIC BALANCER DEE JENNINGS M.D. Performed By: #### E SR, CMP, B12, CBC, MG #### [address] ALT [Catalytic activity/Vol] 19 U/L Normal 7-52 [facility] Comment on above: Performed By: #### E SR, CMP, B12, CBC, MG #### [address] Anion gap [Moles/Vol] 12.4 mmol/L Normal 6.0-15.0 [facility] Comment on above: Performed By: #### E SR, CMP, B12, CBC, MG #### [address] AST [Catalytic activity/Vol] 18 U/L Normal 13-39 [facility] Comment on above: Performed By: #### E SR, CMP, B12, CBC, MG #### [place] [address] [place] Bilirubin [Mass/Vol] 0.5 mg/dL Normal 0.3-1.0 [facility] Comment on above: Performed By: #### E SR, CMP, B12, CBC, MG #### [place] [address] [place] Calcium [Mass/Vol] 9.2 mg/dL Normal 8.6-10.3 [facility] Comment on above: Performed By: #### E SR, CMP, B12, CBC, MG #### [place] [address] [place] Chloride [Moles/Vol] 104 mmol/L Normal 98-107 [facility] Comment on above: Performed By: #### E SR, CMP, B12, CBC, MG #### [address] CO2 [Moles/Vol] 28.2 mmol/L Normal 21.0-31.0 [facility] Comment on above: Performed By: #### E SR, CMP, B12, CBC, MG #### [address] Creatinine [Mass/Vol] 0.76 mg/dL Normal 0.70-1.30 [facility] Comment on above: Performed By: #### E SR, CMP, B12, CBC, MG #### [address] GFR/1.73 sq M.predicted MDRD (S/P/Bld) [Vol rate/Area] mL/min/{1.73_m2} Normal [facility] Comment on above: Performed By: #### E SR, CMP, B12, CBC, MG #### [address] Globulin (S) [Mass/Vol] 3.4 g/dL Normal [facility] Comment on above: Performed By: #### E SR, CMP, B12, CBC, MG #### [address] Glucose [Mass/Vol] 96 mg/dL Normal 70-100 [facility] Comment on above: Result Comment: [place] Glucose Reference Range is dependent on time and content of last meal. Glucose of more than 200 mg/dL in a nonstressed, ambulatory subject supports the diagnosis of Diabetes Mellitus. ADA recommended reference range Performed By: #### E SR, CMP, B12, CBC, MG #### [address] Potassium [Moles/Vol] 3.6 mmol/L Normal 3.5-5.1 [facility] Comment on above: Performed By: #### E SR, CMP, B12, CBC, MG #### [address] [place] [address] [place] Protein [Mass/Vol] 7.2 g/dL Normal 6.4-8.9 [facility] Comment on above: Performed By: #### E SR, CMP, B12, CBC, MG #### [address] Sodium [Moles/Vol] 141 mmol/L Normal 136-145 [facility] Comment on above: Performed By: #### E SR, CMP, B12, CBC, MG #### [address] Urea nitrogen [Mass/Vol] 13 mg/dL Normal 7-25 [facility] Comment on above: Performed By: #### E SR, CMP, B12, CBC, MG #### [address] Creatinine [Mass/volume] in Serum or PlasmaOrdered By: Clarke Bertrand on 02-24-2024 Creatinine [Mass/Vol] Creatinine [Mass/volume] in Serum or Plasma 0.70-1.30 [facility] Eosinophils Auto (Bld) [#/Vo l]Ordered By: Clarke Bertrand on 02-24-2024 Eosinophils (Bld) [#/Vol] Automated eosinophil count 0.0-0.45 [facility] Eosinophils/100 WBC Auto (Bl d)Ordered By: Clarke Bertrand on 02-24-2024 Eosinophils/100 WBC (Bld) Automated eosinophil % . [facility] Erythrocyte Sedimentation Ra basilio 02-24-2024 ESR (Bld) [Velocity] 55 mm/h High 0-19 [facility] Comment on above: Result Comment: PERF ORMED BY: [place] [address] PATHOLOGIST STATIC BALANCER DEE JENNINGS M.D. Performed By: #### E SR, CMP, B12, CBC, MG #### [address] Erythrocyte distribution wid th Auto (RBC) [Ratio]Ordered By: Clarke Bertrand on 02-24-2024 Erythrocyte distribution width (RBC) [Ratio] Erythrocyte distribution width [Ratio] by Automated count High 12.0-14.8 [facility] Erythrocyte sedimentation ra te by Photometric methodOrdered By: Clarke Bertrand on 02-24-2024 ESR Photometric method (Bld) [Velocity] Erythrocyte sedimentation rate by Photometric method High 0-19 [facility] Globulin Calc (S) [Mass/Vol] Ordered By: Clarke Bertrand on 02-24-2024 Globulin (S) [Mass/Vol] Serum globulin measurement by calculation (mass/volume) [facility] Glucose [Mass/volume] in Ser um or PlasmaOrdered By: Clarke Bertrand on 02-24-2024 Glucose [Mass/Vol] Glucose [Mass/volume ] in Serum or Plasma 70-100 [facility] Comment on above: ADA recommended refe rence rangeRandom Glucose Reference Range is dependent on time and content of last meal. Glucose of more than 200 mg/dL in a nonstressed, ambulatory subject supports the diagnosis of Diabetes Mellitus. Hematocrit Auto (Bld) [Volum e fraction]Ordered By: Clarke Bertrand on 02-24-2024 Hematocrit (Bld) [Volume fraction] Hematocrit [Volume Fraction] of Blood by Automated count 38.8-50.0 [facility] Hemoglobin [Mass/volume] in BloodOrdered By: Clarke Bertrand on 02-24-2024 Hemoglobin (Bld) [Mass/Vol] Hemoglobin [Mass/volume] in Blood 13.0-17.0 [facility] Leukocytes [#/volume] correc constance for nucleated erythrocytes in Blood by Automated counOrdered By: Clarke Bertrand on 02-24-2024 WBC corrected for nucl RBC Auto (Bld) [#/Vol] Leukocytes [#/volume] corrected for nucleated erythrocytes in Blood by Automated coun 4.1-10.5 [facility] Lymphocytes Auto (Bld) [#/Vo l]Ordered By: Clarke Bertrand on 02-24-2024 Lymphocytes (Bld) [#/Vol] Lymphocytes [#/volume] in Blood by Automated count 1.00-4.8 [facility] Lymphocytes/100 WBC Auto (Bl d)Ordered By: Clarke Bertrand on 02-24-2024 Lymphocytes/100 WBC (Bld) Lymphocytes/100 leukocytes in Blood by Automated count . [facility] MCH Auto (RBC) [Entitic mass ]Ordered By: Clarke Bertrand on 02-24-2024 MCH (RBC) [Entitic mass] MCH [Entitic ma ss] by Automated count 27.5-35.2 [facility] MCHC Auto (RBC) [Mass/Vol]Or dered By: Clarke Bertrand on 02-24-2024 MCHC (RBC) [Mass/Vol] MCHC [Mass/volume] by Automated count 32.5-35.6 [facility] MCV Auto (RBC) [Entitic vol] Ordered By: Clarke Bertrand on 02-24-2024 MCV (RBC) [Entitic vol] MCV [Entitic vol ume] by Automated count 83.5-101 [facility] Monocytes Auto (Bld) [#/Vol] Ordered By: Clarke Bertrand on 02-24-2024 Monocytes (Bld) [#/Vol] Automated blood monocyte count 0.0-0.8 [facility] Monocytes/100 WBC Auto (Bld) Ordered By: Clarke Bertrand on 02-24-2024 Monocytes/100 WBC (Bld) Automated monocyte % . [facility] Neutrophils Auto (Bld) [#/Vo l]Ordered By: Clarke Bertrand on 02-24-2024 Neutrophils (Bld) [#/Vol] Neutrophils [#/volume] in Blood by Automated count 1.8-7.7 [facility] Neutrophils/100 WBC Auto (Bl d)Ordered By: Clarke Bertrand on 02-24-2024 Neutrophils/100 WBC (Bld) Automated neutrophil % . [facility] No Panel InformationOrdered By: Clarke Bertrand on 02-24-2024 Estimated GFR (CKD-EPI) > 60.0 mL/Min [facility] Creatinine Clearance (Chem N/A [facility] Nucleated erythrocytes [Pres ence] in Blood by Automated countOrdered By: Clarke Bertrand on 02-24-2024 Nucleated RBC Auto Ql (Bld) Nucleated erythrocytes [Presence] in Blood by Automated count 0-0.5 [facility] Platelet mean volume Auto (B ld) [Entitic vol]Ordered By: Clarke Bertrand on 02-24-2024 Platelet mean volume (Bld) [Entitic vol] Platelet mean volume [Entitic volume] in Blood by Automated count 6.6-10.1 [facility] Platelets Auto (Bld) [#/Vol] Ordered By: Clarke Bertrand on 02-24-2024 Platelets (Bld) [#/Vol] Platelets [#/vol ume] in Blood by Automated count 150-450 [facility] Potassium [Moles/volume] in Serum or PlasmaOrdered By: Clarke Bertrand on 02-24-2024 Potassium [Moles/Vol] Potassium [Moles/volume] in Serum or Plasma 3.5-5.1 [facility] Protein [Mass/volume] in Ser um or PlasmaOrdered By: Clarke Bertrand on 02-24-2024 Protein [Mass/Vol] Protein [Mass/volume ] in Serum or Plasma 6.4-8.9 [facility] RBC Auto (Bld) [#/Vol]Ordere d By: Clarke Bertrand on 02-24-2024 RBC (Bld) [#/Vol] Erythrocytes [#/volume] in Blood by Automated count 3.90-5.60 [facility] Serum or plasma albumin/glob ulin mass ratioOrdered By: Clarke Bertrand on 02-24-2024 Albumin/Globulin [Mass ratio] Serum or plasma albumin/globulin mass ratio [facility] Serum or plasma anion gap de terminationOrdered By: Clarke Bertrand on 02-24-2024 Anion gap [Moles/Vol] Serum or plasma an ion gap determination 6.0-15.0 [facility] Sodium [Moles/volume] in Ser um or PlasmaOrdered By: Clarke Bertrand on 02-24-2024 Sodium [Moles/Vol] Sodium [Moles/volume ] in Serum or Plasma 136-145 [facility] Urea nitrogen [Mass/volume] in Serum or PlasmaOrdered By: Clarke Bertrand on 02-24-2024 Urea nitrogen [Mass/Vol] Urea nitrogen [Mass/volume] in Serum or Plasma 7-25 [facility] WBC Auto (Bld) [#/Vol]Ordere d By: Clarke Bertrand on 02-24-2024 WBC (Bld) [#/Vol] Leukocytes [#/volume ] in Blood by Automated count 4.1-10.5 [facility] Alanine aminotransferase [En zymatic activity/volume] in Serum or PlasmaOrdered By: Lashell Villar on 12-30-2023 ALT [Catalytic activity/Vol] Alanine aminotransferase [Enzymatic activity/volume] in Serum or Plasma 7-52 [facility] Albumin [Mass/volume] in Ser um or Plasma by Bromocresol green (BCG) dye binding methoOrdered By: Lashell Villar on 12-30-2023 Albumin BCG dye [Mass/Vol] Albumin [Mass/volume] in Serum or Plasma by Bromocresol green (BCG) dye binding metho 3.5-5.7 [facility] Alkaline phosphatase [Enzyma tic activity/volume] in Serum or PlasmaOrdered By: Lashell Villar on 12-30-2023 ALP [Catalytic activity/Vol] Alkaline phosphatase [Enzymatic activity/volume] in Serum or Plasma 34-104 [facility] Aspartate aminotransferase [ Enzymatic activity/volume] in Serum or PlasmaOrdered By: Lashell Villar on 12-30-2023 AST [Catalytic activity/Vol] Aspartate aminotransferase [Enzymatic activity/volume] in Serum or Plasma 13-39 [facility] Basophils Auto (Bld) [#/Vol] Ordered By: Lashell Villar on 12-30-2023 Basophils (Bld) [#/Vol] Automated basoph il count 0.0-0.2 [facility] Basophils/100 WBC Auto (Bld) Ordered By: Lashell Villar on 12-30-2023 Basophils/100 WBC (Bld) Automated basophil % . [facility] Bilirubin.total [Mass/volume ] in Serum or PlasmaOrdered By: Lashell Villar on 12-30-2023 Bilirubin [Mass/Vol] Bilirubin.total [Mass/volume] in Serum or Plasma 0.3-1.0 [facility] Calcium [Mass/volume] in Ser um or PlasmaOrdered By: Lashell Villar on 12-30-2023 Calcium [Mass/Vol] Calcium [Mass/volume ] in Serum or Plasma 8.6-10.3 [facility] Carbon dioxide, total [Moles /volume] in Serum or PlasmaOrdered By: Lashell Villar on 12-30-2023 CO2 [Moles/Vol] Carbon dioxide, tota l [Moles/volume] in Serum or Plasma 21.0-31.0 [facility] Chloride [Moles/volume] in S jessica or PlasmaOrdered By: Lashell Villar on 12-30-2023 Chloride [Moles/Vol] Chloride [Moles/volume] in Serum or Plasma 98-107 [facility] Complete Blood Count Auto Di ffon 12-30-2023 Basophils (Bld) [#/Vol] 0.0 10*3/uL Normal 0.0-0.2 [facility] Comment on above: Performed By: #### E SR, CMP, B12, CBC, MG #### [facility] [address] [place] [address] Basophils/100 WBC (Bld) 0.6 % Normal . [facility] Comment on above: Performed By: #### E SR, CMP, B12, CBC, MG #### [facility] [address] [place] [address] Eosinophils (Bld) [#/Vol] 0.2 10*3/uL Normal 0.0-0.45 [facility] Comment on above: Performed By: #### E SR, CMP, B12, CBC, MG #### [address] Eosinophils/100 WBC (Bld) 5.0 % Normal . [facility] Comment on above: Performed By: #### E SR, CMP, B12, CBC, MG #### [facility] [address] [place] [address] Erythrocyte distribution width (RBC) [Ratio] 16.6 % High 12.0-14.8 [facility] Comment on above: Performed By: #### E SR, CMP, B12, CBC, MG #### [facility] [address] [place] [address] Hematocrit (Bld) [Volume fraction] 42.4 % Normal 38.8-50.0 [facility] Comment on above: Performed By: #### E SR, CMP, B12, CBC, MG #### [address] Hemoglobin (Bld) [Mass/Vol] 14.2 g/dL Normal 13.0-17.0 [facility] Comment on above: Performed By: #### E SR, CMP, B12, CBC, MG #### [address] Lymphocytes (Bld) [#/Vol] 1.2 10*3/uL Normal 1.00-4.8 [facility] Comment on above: Performed By: #### E SR, CMP, B12, CBC, MG #### [address] Lymphocytes/100 WBC (Bld) 23.8 % Normal . [facility] Comment on above: Performed By: #### E SR, CMP, B12, CBC, MG #### [address] MCH (RBC) [Entitic mass] 30.8 pg Normal 27.5-35.2 [facility] Comment on above: Performed By: #### E SR, CMP, B12, CBC, MG #### [address] MCV (RBC) [Entitic vol] 92.2 fL Normal 83.5-101 [facility] Comment on above: Performed By: #### E SR, CMP, B12, CBC, MG #### [address] Mean Corpuscular HGB Conc 33.4 g/dL Normal 32.5-35.6 [facility] Comment on above: Performed By: #### E SR, CMP, B12, CBC, MG #### [address] Monocytes (Bld) [#/Vol] 0.6 10*3/uL Normal 0.0-0.8 [facility] Comment on above: Performed By: #### E SR, CMP, B12, CBC, MG #### [address] Monocytes/100 WBC (Bld) 12.7 % Normal . [facility] Comment on above: Performed By: #### E SR, CMP, B12, CBC, MG #### [address] Neutrophils (Bld) [#/Vol] 2.8 10*3/uL Normal 1.8-7.7 [facility] Comment on above: Performed By: #### E SR, CMP, B12, CBC, MG #### [address] Neutrophils/100 WBC (Bld) 57.9 % Normal . [facility] Comment on above: Performed By: #### E SR, CMP, B12, CBC, MG #### [address] NRBC% 0.1 /100{WBC} Normal 0-0.5 [facility] Comment on above: Performed By: #### E SR, CMP, B12, CBC, MG #### [address] Platelet mean volume (Bld) [Entitic vol] 9.0 fL Normal 6.6-10.1 [facility] Comment on above: Performed By: #### E SR, CMP, B12, CBC, MG #### [place] [address] [place] Platelets (Bld) [#/Vol] 183 10*3/uL Normal 150-450 [facility] Comment on above: Performed By: #### E SR, CMP, B12, CBC, MG #### [place] [address] [place] RBC (Bld) [#/Vol] 4.60 10*6/uL Normal 3.90-5.60 [facility] Comment on above: Performed By: #### E SR, CMP, B12, CBC, MG #### [place] [address] [place] WBC (Bld) [#/Vol] 4.9 10*3/uL Normal 4.1-10.5 [facility] Comment on above: Performed By: #### E SR, CMP, B12, CBC, MG #### [address] Comprehensive Metabolic Pane chong 12-30-2023 Albumin [Mass/Vol] 3.6 g/dL Normal 3.5-5.7 [facility] Comment on above: Performed By: #### E SR, CMP, B12, CBC, MG #### [address] Albumin/Globulin [Mass ratio] 1.0 {ratio} Normal [facility] Comment on above: Performed By: #### E SR, CMP, B12, CBC, MG #### [address] ALP [Catalytic activity/Vol] 86 U/L Normal 34-104 [facility] Comment on above: Performed By: #### E SR, CMP, B12, CBC, MG #### [address] ALT [Catalytic activity/Vol] 16 U/L Normal 7-52 [facility] Comment on above: Performed By: #### E SR, CMP, B12, CBC, MG #### [address] Anion gap [Moles/Vol] 12.7 mmol/L Normal 6.0-15.0 [facility] Comment on above: Performed By: #### E SR, CMP, B12, CBC, MG #### [address] AST [Catalytic activity/Vol] 19 U/L Normal 13-39 [facility] Comment on above: Performed By: #### E SR, CMP, B12, CBC, MG #### [address] Bilirubin [Mass/Vol] 0.5 mg/dL Normal 0.3-1.0 [facility] Comment on above: Performed By: #### E SR, CMP, B12, CBC, MG #### [address] Calcium [Mass/Vol] 9.0 mg/dL Normal 8.6-10.3 [facility] Comment on above: Performed By: #### E SR, CMP, B12, CBC, MG #### [address] Chloride [Moles/Vol] 105 mmol/L Normal 98-107 [facility] Comment on above: Performed By: #### E SR, CMP, B12, CBC, MG #### [address] CO2 [Moles/Vol] 25.9 mmol/L Normal 21.0-31.0 [facility] Comment on above: Performed By: #### E SR, CMP, B12, CBC, MG #### [address] Creatinine [Mass/Vol] 0.83 mg/dL Normal 0.70-1.30 [facility] Comment on above: Performed By: #### E SR, CMP, B12, CBC, MG #### [address] GFR/1.73 sq M.predicted MDRD (S/P/Bld) [Vol rate/Area] mL/min/{1.73_m2} Normal [facility] Comment on above: Performed By: #### E SR, CMP, B12, CBC, MG #### [address] Globulin (S) [Mass/Vol] 3.5 g/dL Normal [facility] Comment on above: Performed By: #### E SR, CMP, B12, CBC, MG #### [address] Glucose [Mass/Vol] 95 mg/dL Normal 70-100 [facility] Comment on above: Result Comment: [place] Glucose Reference Range is dependent on time and content of last meal. Glucose of more than 200 mg/dL in a nonstressed, ambulatory subject supports the diagnosis of Diabetes Mellitus. ADA recommended reference range Performed By: #### E SR, CMP, B12, CBC, MG #### [facility] [address] Potassium [Moles/Vol] 3.6 mmol/L Normal 3.5-5.1 [facility] Comment on above: Performed By: #### E SR, CMP, B12, CBC, MG #### [facility] [address] Protein [Mass/Vol] 7.1 g/dL Normal 6.4-8.9 [facility] Comment on above: Performed By: #### E SR, CMP, B12, CBC, MG #### [facility] [address] [place] [address] Sodium [Moles/Vol] 140 mmol/L Normal 136-145 [facility] Comment on above: Performed By: #### E SR, CMP, B12, CBC, MG #### [facility] [address] [place] [address] Urea nitrogen [Mass/Vol] 10 mg/dL Normal 7-25 [facility] Comment on above: Performed By: #### E SR, CMP, B12, CBC, MG #### [address] Creatinine [Mass/volume] in Serum or PlasmaOrdered By: Lashell Villar on 12-30-2023 Creatinine [Mass/Vol] Creatinine [Mass/volume] in Serum or Plasma 0.70-1.30 [facility] Eosinophils Auto (Bld) [#/Vo l]Ordered By: Lashell Villar on 12-30-2023 Eosinophils (Bld) [#/Vol] Automated eosinophil count 0.0-0.45 [facility] Eosinophils/100 WBC Auto (Bl d)Ordered By: Lashell Villar on 12-30-2023 Eosinophils/100 WBC (Bld) Automated eosinophil % . [facility] Erythrocyte Sedimentation Ra basilio 12-30-2023 ESR (Bld) [Velocity] 59 mm/h High 0-19 [facility] Comment on above: Result Comment: PERF ORMED BY: [address] [place] [address] PATHOLOGIST STATIC BALANCER DEE JENNINGS M.D. Performed By: #### E SR, CMP, B12, CBC, MG #### [address] Erythrocyte distribution wid th Auto (RBC) [Ratio]Ordered By: Lashell Villar on 12-30-2023 Erythrocyte distribution width (RBC) [Ratio] Erythrocyte distribution width [Ratio] by Automated count High 12.0-14.8 [facility] Erythrocyte sedimentation ra te by Photometric methodOrdered By: Lashell Villar on 12-30-2023 ESR Photometric method (Bld) [Velocity] Erythrocyte sedimentation rate by Photometric method High 0-19 [facility] Globulin Calc (S) [Mass/Vol] Ordered By: Lashell Villar on 12-30-2023 Globulin (S) [Mass/Vol] Serum globulin measurement by calculation (mass/volume) [facility] Glucose [Mass/volume] in Ser um or PlasmaOrdered By: Lashell Villar on 12-30-2023 Glucose [Mass/Vol] Glucose [Mass/volume ] in Serum or Plasma 70-100 [facility] Comment on above: ADA recommended refe rence rangeRandom Glucose Reference Range is dependent on time and content of last meal. Glucose of more than 200 mg/dL in a nonstressed, ambulatory subject supports the diagnosis of Diabetes Mellitus. Hematocrit Auto (Bld) [Volum e fraction]Ordered By: Lashell Villar on 12-30-2023 Hematocrit (Bld) [Volume fraction] Hematocrit [Volume Fraction] of Blood by Automated count 38.8-50.0 [facility] Hemoglobin [Mass/volume] in BloodOrdered By: Lashell Villar on 12-30-2023 Hemoglobin (Bld) [Mass/Vol] Hemoglobin [Mass/volume] in Blood 13.0-17.0 [facility] Leukocytes [#/volume] correc constance for nucleated erythrocytes in Blood by Automated counOrdered By: Lashell Villar on 12-30-2023 WBC corrected for nucl RBC Auto (Bld) [#/Vol] Leukocytes [#/volume] corrected for nucleated erythrocytes in Blood by Automated coun 4.1-10.5 [facility] Lymphocytes Auto (Bld) [#/Vo l]Ordered By: Lashell Villar on 12-30-2023 Lymphocytes (Bld) [#/Vol] Lymphocytes [#/volume] in Blood by Automated count 1.00-4.8 [facility] Lymphocytes/100 WBC Auto (Bl d)Ordered By: Lashell Villar on 12-30-2023 Lymphocytes/100 WBC (Bld) Lymphocytes/100 leukocytes in Blood by Automated count . [facility] MCH Auto (RBC) [Entitic mass ]Ordered By: Lashell Villar on 12-30-2023 MCH (RBC) [Entitic mass] MCH [Entitic ma ss] by Automated count 27.5-35.2 [facility] MCHC Auto (RBC) [Mass/Vol]Or dered By: Lashell Villar on 12-30-2023 MCHC (RBC) [Mass/Vol] MCHC [Mass/volume] by Automated count 32.5-35.6 [facility] MCV Auto (RBC) [Entitic vol] Ordered By: Lashell Villar on 12-30-2023 MCV (RBC) [Entitic vol] MCV [Entitic vol ume] by Automated count 83.5-101 [facility] Magnesiumon 12-30-2023 Magnesium [Mass/Vol] 1.8 mg/dL Low 1.9-2.7 [facility] Comment on above: Performed By: #### E SR, CMP, B12, CBC, MG #### [address] Magnesium [Mass/volume] in S jessica or PlasmaOrdered By: Lashell Villar on 12-30-2023 Magnesium [Mass/Vol] Magnesium [Mass/volume] in Serum or Plasma Low 1.9-2.7 [facility] Monocytes Auto (Bld) [#/Vol] Ordered By: Lashell Villar on 12-30-2023 Monocytes (Bld) [#/Vol] Automated blood monocyte count 0.0-0.8 [facility] Monocytes/100 WBC Auto (Bld) Ordered By: Lashell Villar on 12-30-2023 Monocytes/100 WBC (Bld) Automated monocyte % . [facility] Neutrophils Auto (Bld) [#/Vo l]Ordered By: Lashell Villar on 12-30-2023 Neutrophils (Bld) [#/Vol] Neutrophils [#/volume] in Blood by Automated count 1.8-7.7 [facility] Neutrophils/100 WBC Auto (Bl d)Ordered By: Lashell Villar on 12-30-2023 Neutrophils/100 WBC (Bld) Automated neutrophil % . [facility] No Panel InformationOrdered By: Lashell Villar on 12-30-2023 Estimated GFR (CKD-EPI) > 60.0 mL/Min [facility] Creatinine Clearance (Chem N/A [facility] Nucleated erythrocytes [Pres ence] in Blood by Automated countOrdered By: Lashell Villar on 12-30-2023 Nucleated RBC Auto Ql (Bld) Nucleated erythrocytes [Presence] in Blood by Automated count 0-0.5 [facility] Platelet mean volume Auto (B ld) [Entitic vol]Ordered By: Lashell Villar on 12-30-2023 Platelet mean volume (Bld) [Entitic vol] Platelet mean volume [Entitic volume] in Blood by Automated count 6.6-10.1 [facility] Platelets Auto (Bld) [#/Vol] Ordered By: Lashell Villar on 12-30-2023 Platelets (Bld) [#/Vol] Platelets [#/vol ume] in Blood by Automated count 150-450 [facility] Potassium [Moles/volume] in Serum or PlasmaOrdered By: Lashell Villar on 12-30-2023 Potassium [Moles/Vol] Potassium [Moles/volume] in Serum or Plasma 3.5-5.1 [facility] Protein [Mass/volume] in Ser um or PlasmaOrdered By: Lashell Villar on 12-30-2023 Protein [Mass/Vol] Protein [Mass/volume ] in Serum or Plasma 6.4-8.9 [facility] RBC Auto (Bld) [#/Vol]Ordere d By: Lashell Villar on 12-30-2023 RBC (Bld) [#/Vol] Erythrocytes [#/volume] in Blood by Automated count 3.90-5.60 [facility] Serum or plasma albumin/glob ulin mass ratioOrdered By: Lashell Villar on 12-30-2023 Albumin/Globulin [Mass ratio] Serum or plasma albumin/globulin mass ratio [facility] Serum or plasma anion gap de terminationOrdered By: Lashell Villar on 12-30-2023 Anion gap [Moles/Vol] Serum or plasma an ion gap determination 6.0-15.0 [facility] Sodium [Moles/volume] in Ser um or PlasmaOrdered By: Lashell Villar on 12-30-2023 Sodium [Moles/Vol] Sodium [Moles/volume ] in Serum or Plasma 136-145 [facility] Urea nitrogen [Mass/volume] in Serum or PlasmaOrdered By: Lashell Villar on 12-30-2023 Urea nitrogen [Mass/Vol] Urea nitrogen [Mass/volume] in Serum or Plasma 7-25 [facility] Vitamin B12on 12-30-2023 Cobalamin (Vitamin B12) [Mass/Vol] 1136 pg/mL High 180-914 [facility] Comment on above: Result Comment: PERF ORMED BY: [place] [address] PATHOLOGIST STATIC BALANCER DEE JENNINGS M.D. Performed By: #### E SR, CMP, B12, CBC, MG #### [address] Vitamin B12 ser/plasOrdered By: Lashell Villar on 12-30-2023 Cobalamin (Vitamin B12) [Mass/Vol] Vitamin B12 ser/plas High 180-914 [facility] WBC Auto (Bld) [#/Vol]Ordere d By: Lashell Villar on 12-30-2023 WBC (Bld) [#/Vol] Leukocytes [#/volume ] in Blood by Automated count 4.1-10.5 [facility] Alanine aminotransferase [En zymatic activity/volume] in Serum or PlasmaOrdered By: Lashell Villar on 09-09-2023 ALT [Catalytic activity/Vol] 21 U/L Normal 7-52 [facility] Comment on above: Performed By: #### E SR, CMP, B12, CBC, MG #### [address] Albumin [Mass/volume] in Ser um or Plasma by Bromocresol green (BCG) dye binding methoOrdered By: Lashell Villar on 09-09-2023 Albumin BCG dye [Mass/Vol] 3.9 g/dL 3.5-5.7 [facility] Alkaline phosphatase [Enzyma tic activity/volume] in Serum or PlasmaOrdered By: Lashell Villar on 09-09-2023 ALP [Catalytic activity/Vol] 74 U/L Normal 34-104 [facility] Comment on above: Performed By: #### E SR, CMP, B12, CBC, MG #### [address] Aspartate aminotransferase [ Enzymatic activity/volume] in Serum or PlasmaOrdered By: Lashell Villar on 09-09-2023 AST [Catalytic activity/Vol] 25 U/L Normal 13-39 [facility] Comment on above: Performed By: #### E SR, CMP, B12, CBC, MG #### [address] Automated basophil %Ordered By: Lashell Villar on 09-09-2023 Basophils/100 WBC (Bld) 0.7 % Normal . [facility] Comment on above: Performed By: #### E SR, CMP, B12, CBC, MG #### [address] Automated basophil countOrde red By: Lashell Villar on 09-09-2023 Basophils (Bld) [#/Vol] 0.0 10*3/uL Normal 0.0-0.2 [facility] Comment on above: Performed By: #### E SR, CMP, B12, CBC, MG #### [address] [address] [place] Automated blood monocyte cou ntOrdered By: Lashell Villar on 09-09-2023 Monocytes (Bld) [#/Vol] 0.6 10*3/uL Normal 0.0-0.8 [facility] Comment on above: Performed By: #### E SR, CMP, B12, CBC, MG #### [facility] [address] [place] [address] Automated eosinophil %Ordere d By: Lashell Villar on 09-09-2023 Eosinophils/100 WBC (Bld) 5.0 % Normal . [facility] Comment on above: Performed By: #### E SR, CMP, B12, CBC, MG #### [address] Automated eosinophil countOr dered By: Lashell Villar on 09-09-2023 Eosinophils (Bld) [#/Vol] 0.2 10*3/uL Normal 0.0-0.45 [facility] Comment on above: Performed By: #### E SR, CMP, B12, CBC, MG #### [address] Automated monocyte %Ordered By: Lashell Villar on 09-09-2023 Monocytes/100 WBC (Bld) 13.3 % Normal . [facility] Comment on above: Performed By: #### E SR, CMP, B12, CBC, MG #### [facility] [address] [place] [address] Automated neutrophil %Ordere d By: Lashell Villar on 09-09-2023 Neutrophils/100 WBC (Bld) 55.6 % Normal . [facility] Comment on above: Performed By: #### E SR, CMP, B12, CBC, MG #### [address] Bilirubin.total [Mass/volume ] in Serum or PlasmaOrdered By: Lashell Villar on 09-09-2023 Bilirubin [Mass/Vol] 0.5 mg/dL Normal 0.3-1.0 [facility] Comment on above: Performed By: #### E SR, CMP, B12, CBC, MG #### [address] Calcium [Mass/volume] in Ser um or PlasmaOrdered By: Lashell Villar on 09-09-2023 Calcium [Mass/Vol] 9.6 mg/dL Normal 8.6-10.3 [facility] Comment on above: Performed By: #### E SR, CMP, B12, CBC, MG #### [address] Carbon dioxide, total [Moles /volume] in Serum or PlasmaOrdered By: Lashell Villar on 09-09-2023 CO2 [Moles/Vol] 25.0 mmol/L Normal 21.0-31.0 [facility] Comment on above: Performed By: #### E SR, CMP, B12, CBC, MG #### [address] Chloride [Moles/volume] in S jessica or PlasmaOrdered By: Lashell Villar on 09-09-2023 Chloride [Moles/Vol] 107 mmol/L Normal 98-107 [facility] Comment on above: Performed By: #### E SR, CMP, B12, CBC, MG #### [address] Complete Blood Count Auto Di ffon 09-09-2023 Mean Corpuscular HGB Conc 32.7 g/dL Normal 32.5-35.6 [facility] Comment on above: Performed By: #### E SR, CMP, B12, CBC, MG #### [address] NRBC% 0.0 /100{WBC} Normal 0-0.5 [facility] Comment on above: Performed By: #### E SR, CMP, B12, CBC, MG #### [address] Comprehensive Metabolic Pane chong 09-09-2023 Albumin [Mass/Vol] 3.9 g/dL Normal 3.5-5.7 [facility] Comment on above: Performed By: #### E SR, CMP, B12, CBC, MG #### [address] GFR/1.73 sq M.predicted MDRD (S/P/Bld) [Vol rate/Area] mL/min/{1.73_m2} Normal [facility] Comment on above: Performed By: #### E SR, CMP, B12, CBC, MG #### [address] Creatinine [Mass/volume] in Serum or PlasmaOrdered By: Lashell Villar on 09-09-2023 Creatinine [Mass/Vol] 0.84 mg/dL Normal 0.70-1.30 [facility] Comment on above: Performed By: #### E SR, CMP, B12, CBC, MG #### [address] Erythrocyte Sedimentation Ra basilio 09-09-2023 ESR (Bld) [Velocity] 51 mm/h High 0-19 [facility] Comment on above: Result Comment: PERF ORMED BY: [place] [address] PATHOLOGIST STATIC BALANCER CRISTINA MARINELLI M.D. Performed By: #### E SR, CMP, B12, CBC, MG #### [address] Erythrocyte distribution wid th [Ratio] by Automated countOrdered By: Lashell Villar on 09-09-2023 Erythrocyte distribution width (RBC) [Ratio] 16.6 % High 12.0-14.8 [facility] Comment on above: Performed By: #### E SR, CMP, B12, CBC, MG #### [address] Erythrocyte sedimentation ra te by Photometric methodOrdered By: Lashell Villar on 09-09-2023 ESR Photometric method (Bld) [Velocity] 51 mm/hr High 0-19 [facility] Erythrocytes [#/volume] in B lood by Automated countOrdered By: Lashell Villar on 09-09-2023 RBC (Bld) [#/Vol] 4.78 10*6/uL Normal 3.90-5.60 [facility] Comment on above: Performed By: #### E SR, CMP, B12, CBC, MG #### [facility] [address] Glucose [Mass/volume] in Ser um or PlasmaOrdered By: Lashell Villar on 09-09-2023 Glucose [Mass/Vol] 99 mg/dL Normal 70-100 [facility] Comment on above: ADA recommended refe rence rangeRandom Glucose Reference Range is dependent on time and content of last meal. Glucose of more than 200 mg/dL in a nonstressed, ambulatory subject supports the diagnosis of Diabetes Mellitus. Result Comment: [place] Glucose Reference Range is dependent on time and content of last meal. Glucose of more than 200 mg/dL in a nonstressed, ambulatory subject supports the diagnosis of Diabetes Mellitus. ADA recommended reference range Performed By: #### E SR, CMP, B12, CBC, MG #### [facility] [address] Hematocrit [Volume Fraction] of Blood by Automated countOrdered By: Lashell Villar on 09-09-2023 Hematocrit (Bld) [Volume fraction] 44.0 % Normal 38.8-50.0 [facility] Comment on above: Performed By: #### E SR, CMP, B12, CBC, MG #### [facility] [address] Hemoglobin [Mass/volume] in BloodOrdered By: Lashell Villar on 09-09-2023 Hemoglobin (Bld) [Mass/Vol] 14.4 g/dL Normal 13.0-17.0 [facility] Comment on above: Performed By: #### E SR, CMP, B12, CBC, MG #### [facility] [address] Leukocytes [#/volume] correc constance for nucleated erythrocytes in Blood by Automated counOrdered By: Lashell Villar on 09-09-2023 WBC corrected for nucl RBC Auto (Bld) [#/Vol] 4.7 10*3/uL 4.1-10.5 [facility] Leukocytes [#/volume] in Blo od by Automated countOrdered By: Lashell Villar on 09-09-2023 WBC (Bld) [#/Vol] 4.7 10*3/uL Normal 4.1-10.5 [facility] Comment on above: Performed By: #### E SR, CMP, B12, CBC, MG #### [address] Lymphocytes [#/volume] in Bl ood by Automated countOrdered By: Lashell Villar on 09-09-2023 Lymphocytes (Bld) [#/Vol] 1.2 10*3/uL Normal 1.00-4.8 [facility] Comment on above: Performed By: #### E SR, CMP, B12, CBC, MG #### [address] Lymphocytes/100 leukocytes i n Blood by Automated countOrdered By: Lashell Villar on 09-09-2023 Lymphocytes/100 WBC (Bld) 25.4 % Normal . [facility] Comment on above: Performed By: #### E SR, CMP, B12, CBC, MG #### [address] MCH [Entitic mass] by Automa constance countOrdered By: Lashell Villar on 09-09-2023 MCH (RBC) [Entitic mass] 30.1 pg Normal 27.5-35.2 [facility] Comment on above: Performed By: #### E SR, CMP, B12, CBC, MG #### [address] MCHC Auto (RBC) [Mass/Vol]Or dered By: Lashell Villar on 09-09-2023 MCHC (RBC) [Mass/Vol] 32.7 g/dL 32.5-35.6 [facility] MCV [Entitic volume] by Auto mated countOrdered By: Lashell Villar on 09-09-2023 MCV (RBC) [Entitic vol] 92.0 fL Normal 83.5-101 [facility] Comment on above: Performed By: #### E SR, CMP, B12, CBC, MG #### [address] Magnesium [Mass/volume] in S jessica or PlasmaOrdered By: Lashell Villar on 09-09-2023 Magnesium [Mass/Vol] 1.9 mg/dL Normal 1.9-2.7 [facility] Comment on above: Performed By: #### E SR, CMP, B12, CBC, MG #### [facility] [address] [place] [address] Neutrophils [#/volume] in Bl ood by Automated countOrdered By: Lashell Villar on 09-09-2023 Neutrophils (Bld) [#/Vol] 2.6 10*3/uL Normal 1.8-7.7 [facility] Comment on above: Performed By: #### E SR, CMP, B12, CBC, MG #### [address] No Panel InformationOrdered By: Lashell Villar on 09-09-2023 Estimated GFR (CKD-EPI) > 60.0 mL/Min [facility] Creatinine Clearance (Chem N/A [facility] Nucleated erythrocytes [Pres ence] in Blood by Automated countOrdered By: Lashell Villar on 09-09-2023 Nucleated RBC Auto Ql (Bld) 0.0 /100{WBC} 0-0.5 [facility] Platelet mean volume [Entiti c volume] in Blood by Automated countOrdered By: Lashell Villar on 09-09-2023 Platelet mean volume (Bld) [Entitic vol] 9.0 fL Normal 6.6-10.1 [facility] Comment on above: Performed By: #### E SR, CMP, B12, CBC, MG #### [facility] [address] [place] [address] Platelets [#/volume] in Bloo d by Automated countOrdered By: Lashell Villar on 09-09-2023 Platelets (Bld) [#/Vol] 180 10*3/uL Normal 150-450 [facility] Comment on above: Performed By: #### E SR, CMP, B12, CBC, MG #### [address] Potassium [Moles/volume] in Serum or PlasmaOrdered By: Lashell Villar on 09-09-2023 Potassium [Moles/Vol] 3.8 mmol/L Normal 3.5-5.1 [facility] Comment on above: Performed By: #### E SR, CMP, B12, CBC, MG #### [address] Protein [Mass/volume] in Ser um or PlasmaOrdered By: Lashell Villar on 09-09-2023 Protein [Mass/Vol] 7.2 g/dL Normal 6.4-8.9 [facility] Comment on above: Performed By: #### E SR, CMP, B12, CBC, MG #### [address] Serum globulin measurement b y calculation (mass/volume)Ordered By: Lashell Villar on 09-09-2023 Globulin (S) [Mass/Vol] 3.3 g/dL Normal [facility] Comment on above: Performed By: #### E SR, CMP, B12, CBC, MG #### [address] Serum or plasma albumin/glob ulin mass ratioOrdered By: Lashell Villar on 09-09-2023 Albumin/Globulin [Mass ratio] 1.2 {ratio} Normal [facility] Comment on above: Performed By: #### E SR, CMP, B12, CBC, MG #### [address] Serum or plasma anion gap de terminationOrdered By: Lashell Villar on 09-09-2023 Anion gap [Moles/Vol] 6.8 mmol/L Normal 6.0-15.0 [facility] Comment on above: Performed By: #### E SR, CMP, B12, CBC, MG #### [address] Sodium [Moles/volume] in Ser um or PlasmaOrdered By: Lashell Villar on 09-09-2023 Sodium [Moles/Vol] 135 mmol/L Low 136-145 [facility] Comment on above: Performed By: #### E SR, CMP, B12, CBC, MG #### [address] Urea nitrogen [Mass/volume] in Serum or PlasmaOrdered By: Lashell Villar on 09-09-2023 Urea nitrogen [Mass/Vol] 14 mg/dL Normal 09-02 [facility] Comment on above: Performed By: #### E SR, CMP, B12, CBC, MG #### [facility] [address] [place] [address] Vitamin B12 ser/plasOrdered By: Lashell Villar on 09-09-2023 Cobalamin (Vitamin B12) [Mass/Vol] 939 pg/mL High 180-914 [facility] Comment on above: Result Comment: PERF ORMED BY: [place] [address] PATHOLOGIST STATIC BALANCER CRISTINA MARINELLI M.D. Performed By: #### E SR, CMP, B12, CBC, MG #### [address] Alanine aminotransferase [En zymatic activity/volume] in Serum or PlasmaOrdered By: Lashell Villar on 07-15-2023 ALT [Catalytic activity/Vol] 17 U/L Normal [facility] Comment on above: Performed By: #### E SR, CMP, B12, CBC, MG #### [place] [address] [place] Albumin [Mass/volume] in Ser um or Plasma by Bromocresol green (BCG) dye binding methoOrdered By: Lashell Villar on 07-15-2023 Albumin BCG dye [Mass/Vol] 3.9 g/dL 3.5-5.7 [facility] Alkaline phosphatase [Enzyma tic activity/volume] in Serum or PlasmaOrdered By: Lashell Villar on 07-15-2023 ALP [Catalytic activity/Vol] 74 U/L Normal 34-104 [facility] Comment on above: Performed By: #### E SR, CMP, B12, CBC, MG #### [address] Aspartate aminotransferase [ Enzymatic activity/volume] in Serum or PlasmaOrdered By: Lashell Villar on 07-15-2023 AST [Catalytic activity/Vol] 21 U/L Normal 13-39 [facility] Comment on above: Performed By: #### E SR, CMP, B12, CBC, MG #### [address] Automated basophil %Ordered By: Lashell Villar on 07-15-2023 Basophils/100 WBC (Bld) 0.4 % Normal . [facility] Comment on above: Performed By: #### E SR, CMP, B12, CBC, MG #### [address] Automated basophil countOrde red By: Lashell Villar on 07-15-2023 Basophils (Bld) [#/Vol] 0.0 10*3/uL Normal 0.0-0.2 [facility] Comment on above: Performed By: #### E SR, CMP, B12, CBC, MG #### [address] Automated blood monocyte cou ntOrdered By: Lashell Villar on 07-15-2023 Monocytes (Bld) [#/Vol] 0.7 10*3/uL Normal 0.0-0.8 [facility] Comment on above: Performed By: #### E SR, CMP, B12, CBC, MG #### [address] Automated eosinophil %Ordere d By: Lashell Villar on 07-15-2023 Eosinophils/100 WBC (Bld) 5.5 % Normal . [facility] Comment on above: Performed By: #### E SR, CMP, B12, CBC, MG #### [address] Automated eosinophil countOr dered By: Lashell Villar on 07-15-2023 Eosinophils (Bld) [#/Vol] 0.2 10*3/uL Normal 0.0-0.45 [facility] Comment on above: Performed By: #### E SR, CMP, B12, CBC, MG #### [address] Automated monocyte %Ordered By: Lashell Villar on 07-15-2023 Monocytes/100 WBC (Bld) 16.2 % Normal . [facility] Comment on above: Performed By: #### E SR, CMP, B12, CBC, MG #### [address] Automated neutrophil %Ordere d By: Lashell Villar on 07-15-2023 Neutrophils/100 WBC (Bld) 50.2 % Normal . [facility] Comment on above: Performed By: #### E SR, CMP, B12, CBC, MG #### [address] Bilirubin.total [Mass/volume ] in Serum or PlasmaOrdered By: Lashell Villar on 07-15-2023 Bilirubin [Mass/Vol] 0.5 mg/dL Normal 0.3-1.0 [facility] Comment on above: Performed By: #### E SR, CMP, B12, CBC, MG #### [address] Calcium [Mass/volume] in Ser um or PlasmaOrdered By: Lashell Villar on 07-15-2023 Calcium [Mass/Vol] 10.0 mg/dL Normal 8.6-10.3 [facility] Comment on above: Performed By: #### E SR, CMP, B12, CBC, MG #### [address] Carbon dioxide, total [Moles /volume] in Serum or PlasmaOrdered By: Lashell Villar on 07-15-2023 CO2 [Moles/Vol] 25.2 mmol/L Normal 21.0-31.0 [facility] Comment on above: Performed By: #### E SR, CMP, B12, CBC, MG #### [address] Chloride [Moles/volume] in S jessica or PlasmaOrdered By: Lashell Villar on 07-15-2023 Chloride [Moles/Vol] 106 mmol/L Normal 98-107 [facility] Comment on above: Performed By: #### E SR, CMP, B12, CBC, MG #### [address] Complete Blood Count Auto Di ffon 07-15-2023 Mean Corpuscular HGB Conc 32.6 g/dL Normal 32.5-35.6 [facility] Comment on above: Performed By: #### E SR, CMP, B12, CBC, MG #### [address] NRBC% 0.2 /100{WBC} Normal 0-0.5 [facility] Comment on above: Performed By: #### E SR, CMP, B12, CBC, MG #### [address] Comprehensive Metabolic Pane chong 07-15-2023 Albumin [Mass/Vol] 3.9 g/dL Normal 3.5-5.7 [facility] Comment on above: Performed By: #### E SR, CMP, B12, CBC, MG #### [place] [address] [place] GFR/1.73 sq M.predicted MDRD (S/P/Bld) [Vol rate/Area] mL/min/{1.73_m2} Normal [facility] Comment on above: Performed By: #### E SR, CMP, B12, CBC, MG #### [address] Creatinine [Mass/volume] in Serum or PlasmaOrdered By: Lashell Villar on 07-15-2023 Creatinine [Mass/Vol] 0.76 mg/dL Normal 0.70-1.30 [facility] Comment on above: Performed By: #### E SR, CMP, B12, CBC, MG #### [address] Erythrocyte Sedimentation Ra basilio 07-15-2023 ESR (Bld) [Velocity] 44 mm/h High 0-19 [facility] Comment on above: Result Comment: PERF ORMED BY: [place] [address] PATHOLOGIST STATIC BALANCER CRISTINA MARINELLI M.D. Performed By: #### E SR, CMP, B12, CBC, MG #### [address] Erythrocyte distribution wid th [Ratio] by Automated countOrdered By: Lashell Villar on 07-15-2023 Erythrocyte distribution width (RBC) [Ratio] 16.9 % High 12.0-14.8 [facility] Comment on above: Performed By: #### E SR, CMP, B12, CBC, MG #### [address] Erythrocyte sedimentation ra te by Photometric methodOrdered By: Lashell Villar on 07-15-2023 ESR Photometric method (Bld) [Velocity] 44 mm/hr High 0-19 [facility] Erythrocytes [#/volume] in B lood by Automated countOrdered By: Lashell Villar on 07-15-2023 RBC (Bld) [#/Vol] 4.58 10*6/uL Normal 3.90-5.60 [facility] Comment on above: Performed By: #### E SR, CMP, B12, CBC, MG #### [address] Glucose [Mass/volume] in Ser um or PlasmaOrdered By: Lashell Villar on 07-15-2023 Glucose [Mass/Vol] 98 mg/dL Normal 70-100 [facility] Comment on above: ADA recommended refe rence rangeRandom Glucose Reference Range is dependent on time and content of last meal. Glucose of more than 200 mg/dL in a nonstressed, ambulatory subject supports the diagnosis of Diabetes Mellitus. Result Comment: [place] Glucose Reference Range is dependent on time and content of last meal. Glucose of more than 200 mg/dL in a nonstressed, ambulatory subject supports the diagnosis of Diabetes Mellitus. ADA recommended reference range Performed By: #### E SR, CMP, B12, CBC, MG #### [address] Hematocrit [Volume Fraction] of Blood by Automated countOrdered By: Lashell Villar on 07-15-2023 Hematocrit (Bld) [Volume fraction] 42.3 % Normal 38.8-50.0 [facility] Comment on above: Performed By: #### E SR, CMP, B12, CBC, MG #### [address] Hemoglobin [Mass/volume] in BloodOrdered By: Lashell Villar on 07-15-2023 Hemoglobin (Bld) [Mass/Vol] 13.8 g/dL Normal 13.0-17.0 [facility] Comment on above: Performed By: #### E SR, CMP, B12, CBC, MG #### [address] Leukocytes [#/volume] correc constance for nucleated erythrocytes in Blood by Automated counOrdered By: Lashell Villar on 07-15-2023 WBC corrected for nucl RBC Auto (Bld) [#/Vol] 4.4 10*3/uL 4.1-10.5 [facility] Leukocytes [#/volume] in Blo od by Automated countOrdered By: Lashell Villar on 07-15-2023 WBC (Bld) [#/Vol] 4.4 10*3/uL Normal 4.1-10.5 [facility] Comment on above: Performed By: #### E SR, CMP, B12, CBC, MG #### [address] Lymphocytes [#/volume] in Bl ood by Automated countOrdered By: Lashell Villar on 07-15-2023 Lymphocytes (Bld) [#/Vol] 1.2 10*3/uL Normal 1.00-4.8 [facility] Comment on above: Performed By: #### E SR, CMP, B12, CBC, MG #### [address] Lymphocytes/100 leukocytes i n Blood by Automated countOrdered By: Lashell Villar on 07-15-2023 Lymphocytes/100 WBC (Bld) 27.7 % Normal . [facility] Comment on above: Performed By: #### E SR, CMP, B12, CBC, MG #### [address] MCH [Entitic mass] by Automa constance countOrdered By: Lashell Villar on 07-15-2023 MCH (RBC) [Entitic mass] 30.1 pg Normal 27.5-35.2 [facility] Comment on above: Performed By: #### E SR, CMP, B12, CBC, MG #### [address] MCHC Auto (RBC) [Mass/Vol]Or dered By: Lashell Villar on 07-15-2023 MCHC (RBC) [Mass/Vol] 32.6 g/dL 32.5-35.6 [facility] MCV [Entitic volume] by Auto mated countOrdered By: Lashell Villar on 07-15-2023 MCV (RBC) [Entitic vol] 92.3 fL Normal 83.5-101 [facility] Comment on above: Performed By: #### E SR, CMP, B12, CBC, MG #### [address] Magnesium [Mass/volume] in S jessica or PlasmaOrdered By: Lashell Villar on 07-15-2023 Magnesium [Mass/Vol] 1.8 mg/dL Low 1.9-2.7 [facility] Comment on above: Performed By: #### E SR, CMP, B12, CBC, MG #### [facility] [address] Neutrophils [#/volume] in Bl ood by Automated countOrdered By: Lashell Villar on 07-15-2023 Neutrophils (Bld) [#/Vol] 2.2 10*3/uL Normal 1.8-7.7 [facility] Comment on above: Performed By: #### E SR, CMP, B12, CBC, MG #### [facility] [address] No Panel InformationOrdered By: Lashell Villar on 07-15-2023 Estimated GFR (CKD-EPI) > 60.0 mL/Min [facility] Creatinine Clearance (Chem N/A [facility] Nucleated erythrocytes [Pres ence] in Blood by Automated countOrdered By: Lashell Villar on 07-15-2023 Nucleated RBC Auto Ql (Bld) 0.2 /100{WBC} 0-0.5 [facility] Platelet mean volume [Entiti c volume] in Blood by Automated countOrdered By: Lashell Villar on 07-15-2023 Platelet mean volume (Bld) [Entitic vol] 9.5 fL Normal 6.6-10.1 [facility] Comment on above: Performed By: #### E SR, CMP, B12, CBC, MG #### [facility] [address] Platelets [#/volume] in Bloo d by Automated countOrdered By: Lashell Villar on 07-15-2023 Platelets (Bld) [#/Vol] 160 10*3/uL Normal 150-450 [facility] Comment on above: Performed By: #### E SR, CMP, B12, CBC, MG #### [facility] [address] [place] [address] Potassium [Moles/volume] in Serum or PlasmaOrdered By: Lashell Villar on 07-15-2023 Potassium [Moles/Vol] 4.1 mmol/L Normal 3.5-5.1 [facility] Comment on above: Performed By: #### E SR, CMP, B12, CBC, MG #### [address] Protein [Mass/volume] in Ser um or PlasmaOrdered By: Lashell Villar on 07-15-2023 Protein [Mass/Vol] 7.1 g/dL Normal 6.4-8.9 [facility] Comment on above: Performed By: #### E SR, CMP, B12, CBC, MG #### [address] Serum globulin measurement b y calculation (mass/volume)Ordered By: Lashell Villar on 07-15-2023 Globulin (S) [Mass/Vol] 3.2 g/dL Normal [facility] Comment on above: Performed By: #### E SR, CMP, B12, CBC, MG #### [address] Serum or plasma albumin/glob ulin mass ratioOrdered By: Lashell Villar on 07-15-2023 Albumin/Globulin [Mass ratio] 1.2 {ratio} Normal [facility] Comment on above: Performed By: #### E SR, CMP, B12, CBC, MG #### [address] Serum or plasma anion gap de terminationOrdered By: Lashell Villar on 07-15-2023 Anion gap [Moles/Vol] 11.9 mmol/L Normal 6.0-15.0 [facility] Comment on above: Performed By: #### E SR, CMP, B12, CBC, MG #### [address] Sodium [Moles/volume] in Ser um or PlasmaOrdered By: Lashell Villar on 07-15-2023 Sodium [Moles/Vol] 139 mmol/L Normal 136-145 [facility] Comment on above: Performed By: #### E SR, CMP, B12, CBC, MG #### [facility] [address] [place] [address] Urea nitrogen [Mass/volume] in Serum or PlasmaOrdered By: Lashell Villar on 07-15-2023 Urea nitrogen [Mass/Vol] 14 mg/dL Normal 7-25 [facility] Comment on above: Performed By: #### E SR, CMP, B12, CBC, MG #### [facility] [address] [place] [address] Vitamin B12 ser/plasOrdered By: Lashell Villar on 07-15-2023 Cobalamin (Vitamin B12) [Mass/Vol] 866 pg/mL Normal 180-914 [facility] Comment on above: Result Comment: PERF ORMED BY: [place] [address] PATHOLOGIST STATIC BALANCER CRISTINA MARINELLI M.D. Performed By: #### E SR, CMP, B12, CBC, MG #### [address] Bacteria identified Aer cx N om (Unsp spec)Ordered By: Evangelista Garsia on 06-30-2023 Superficial Wound Culture Staphylococcus aureus Abnormal [facility] Aspartate aminotransferase [ Enzymatic activity/volume] in Serum or PlasmaOrdered By: Clarke Bertrand on 03-25-2023 AST [Catalytic activity/Vol] 20 U/L 1339 [facility] Potassium [Moles/volume] in Serum or PlasmaOrdered By: Clarke Bertrand on 03-25-2023 Potassium [Moles/Vol] 4.0 mmol/L 3.5-5.1 [facility] Alanine aminotransferase [En zymatic activity/volume] in Serum or PlasmaOrdered By: Lashell Villar on 01-28-2023 ALT [Catalytic activity/Vol] 22 U/L 52 [facility] Albumin [Mass/volume] in Ser um or Plasma by Bromocresol green (BCG) dye binding methoOrdered By: Lashell Villra on 01-28-2023 Albumin BCG dye [Mass/Vol] 4.2 g/dL 3.5-5.7 [facility] Alkaline phosphatase [Enzyma tic activity/volume] in Serum or PlasmaOrdered By: Lashell Villar on 01-28-2023 ALP [Catalytic activity/Vol] 63 U/L 34-104 [facility] Aspartate aminotransferase [ Enzymatic activity/volume] in Serum or PlasmaOrdered By: Lashell Villar on 01-28-2023 AST [Catalytic activity/Vol] See comment 13-39 [facility] Comment on above: Specimen hemolyzed, redraw requested Basophils Auto (Bld) [#/Vol] Ordered By: Lashell Villar on 01-28-2023 Basophils (Bld) [#/Vol] 0.0 10*3/uL 0.0-0.2 [facility] Basophils/100 WBC Auto (Bld) Ordered By: Lashell Villar on 01-28-2023 Basophils/100 WBC (Bld) 0.6 % . [facility] Bilirubin.total [Mass/volume ] in Serum or PlasmaOrdered By: Lashell Villar on 01-28-2023 Bilirubin [Mass/Vol] 0.6 mg/dL 0.3-1.0 [facility] Calcium [Mass/volume] in Ser um or PlasmaOrdered By: Lashell Villar on 01-28-2023 Calcium [Mass/Vol] 9.8 mg/dL 8.6-10.3 [facility] Carbon dioxide, total [Moles /volume] in Serum or PlasmaOrdered By: Lashell Villar on 01-28-2023 CO2 [Moles/Vol] 28.6 mmol/L 21.0-31.0 [facility] Chloride [Moles/volume] in S jessica or PlasmaOrdered By: Lashell Villar on 01-28-2023 Chloride [Moles/Vol] 105 mmol/L 98-107 [facility] Creatinine [Mass/volume] in Serum or PlasmaOrdered By: Lashell Villar on 01-28-2023 Creatinine [Mass/Vol] 0.80 mg/dL 0.70-1.30 [facility] Eosinophils Auto (Bld) [#/Vo l]Ordered By: Lashell Villar on 01-28-2023 Eosinophils (Bld) [#/Vol] 0.2 10*3/uL 0.0-0.45 [facility] Eosinophils/100 WBC Auto (Bl d)Ordered By: Lashell Villar on 01-28-2023 Eosinophils/100 WBC (Bld) 5.0 % . [facility] Erythrocyte distribution wid th Auto (RBC) [Ratio]Ordered By: Lashell Villar on 01-28-2023 Erythrocyte distribution width (RBC) [Ratio] 16.7 % 12.0-14.8 [facility] Erythrocyte sedimentation ra te by Photometric methodOrdered By: Lashell Villar on 01-28-2023 ESR Photometric method (d) [Velocity] 34 mm/hr 0-19 [facility] Globulin Calc (S) [Mass/Vol] Ordered By: Lashell Villar on 01-28-2023 Globulin (S) [Mass/Vol] 2.8 g/dL [facility] Glucose [Mass/volume] in Ser um or PlasmaOrdered By: Lashell Villar on 01-28-2023 Glucose [Mass/Vol] 86 mg/dL 70-100 [facility] Comment on above: ADA recommended refe rence rangeRandom Glucose Reference Range is dependent on time and content of last meal. Glucose of more than 200 mg/dL in a nonstressed, ambulatory subject supports the diagnosis of Diabetes Mellitus. Hematocrit Auto (Bld) [Volum e fraction]Ordered By: Lashell Villar on 01-28-2023 Hematocrit (Bld) [Volume fraction] 42.5 % 38.8-50.0 [facility] Hemoglobin [Mass/volume] in BloodOrdered By: Lashell Villar on 01-28-2023 Hemoglobin (Bld) [Mass/Vol] 14.1 g/dL 13.0-17.0 [facility] Leukocytes [#/volume] correc constance for nucleated erythrocytes in Blood by Automated counOrdered By: Lashell Villar on 01-28-2023 WBC corrected for nucl RBC Auto (Bld) [#/Vol] 4.5 10*3/uL 4.1-10.5 [facility] Lymphocytes Auto (Bld) [#/Vo l]Ordered By: Lashell Villar on 01-28-2023 Lymphocytes (Bld) [#/Vol] 1.0 10*3/uL 1.00-4.8 [facility] Lymphocytes/100 WBC Auto (Bl d)Ordered By: Lashell Villar on 01-28-2023 Lymphocytes/100 WBC (Bld) 22.6 % . [facility] MCH Auto (RBC) [Entitic mass ]Ordered By: Lashell Villar on 01-28-2023 MCH (RBC) [Entitic mass] 31.1 pg 27.5-35.2 [facility] MCHC Auto (RBC) [Mass/Vol]Or dered By: Lashell Villar on 01-28-2023 MCHC (RBC) [Mass/Vol] 33.3 g/dL 32.5-35.6 [facility] MCV Auto (RBC) [Entitic vol] Ordered By: Lashell Villar on 01-28-2023 MCV (RBC) [Entitic vol] 93.3 fL 83.5-101 [facility] Monocytes Auto (Bld) [#/Vol] Ordered By: Lashell Villar on 01-28-2023 Monocytes (Bld) [#/Vol] 0.8 10*3/uL 0.0-0.8 [facility] Monocytes/100 WBC Auto (Bld) Ordered By: Lashell Villar on 01-28-2023 Monocytes/100 WBC (Bld) 16.5 % . [facility] Neutrophils Auto (Bld) [#/Vo l]Ordered By: Lashell Villar on 01-28-2023 Neutrophils (Bld) [#/Vol] 2.5 10*3/uL 1.8-7.7 [facility] Neutrophils/100 WBC Auto (Bl d)Ordered By: Lashell Villar on 01-28-2023 Neutrophils/100 WBC (Bld) 55.3 % . [facility] No Panel InformationOrdered By: Lashell Villar on 01-28-2023 Estimated GFR (CKD-EPI) > 60.0 mL/Min [facility] Creatinine Clearance (Chem N/A [facility] Nucleated erythrocytes [Pres ence] in Blood by Automated countOrdered By: Lashell Villar on 01-28-2023 Nucleated RBC Auto Ql (Bld) 0.3 /100{WBC} 0-0.5 [facility] Platelet mean volume Auto (B ld) [Entitic vol]Ordered By: Lashell Villar on 01-28-2023 Platelet mean volume (Bld) [Entitic vol] 9.3 fL 6.6-10.1 [facility] Platelets Auto (Bld) [#/Vol] Ordered By: Lashell Villar on 01-28-2023 Platelets (Bld) [#/Vol] 162 10*3/uL 150-450 [facility] Potassium [Moles/volume] in Serum or PlasmaOrdered By: Lashell Villar on 01-28-2023 Potassium [Moles/Vol] See comment 3.5-5.1 [facility] Comment on above: Specimen hemolyzed, redraw requested Protein [Mass/volume] in Ser um or PlasmaOrdered By: Lashell Villar on 01-28-2023 Protein [Mass/Vol] 7.0 g/dL 6.4-8.9 [facility] RBC Auto (Bld) [#/Vol]Ordere d By: Lashell Villar on 01-28-2023 RBC (Bld) [#/Vol] 4.55 10*6/uL 3.90-5.60 [facility] Serum or plasma albumin/glob ulin mass ratioOrdered By: Lashell Villar on 01-28-2023 Albumin/Globulin [Mass ratio] 1.5 {ratio} [facility] Serum or plasma anion gap de terminationOrdered By: Lashell Villar on 01-28-2023 Anion gap [Moles/Vol] TNP [facility] Comment on above: Test not performed Sodium [Moles/volume] in Ser um or PlasmaOrdered By: Lashell Villar on 01-28-2023 Sodium [Moles/Vol] 140 mmol/L 136-145 [facility] Urea nitrogen [Mass/volume] in Serum or PlasmaOrdered By: Lashell Villar on 01-28-2023 Urea nitrogen [Mass/Vol] 14 mg/dL 09-02 [facility] WBC Auto (Bld) [#/Vol]Ordere d By: Lashell Villar on 01-28-2023 WBC (Bld) [#/Vol] 4.5 10*3/uL 4.1-10.5 [facility] Alanine aminotransferase [En zymatic activity/volume] in Serum or PlasmaOrdered By: Clarke Bertrand on 12-03-2022 ALT [Catalytic activity/Vol] 20 U/L 7-52 [facility] Albumin [Mass/volume] in Ser um or Plasma by Bromocresol green (BCG) dye binding methoOrdered By: Clarke Bertrand on 12-03-2022 Albumin BCG dye [Mass/Vol] 4.0 g/dL 3.5-5.7 [facility] Alkaline phosphatase [Enzyma tic activity/volume] in Serum or PlasmaOrdered By: Clarke Bertrand on 12-03-2022 ALP [Catalytic activity/Vol] 73 U/L 34-104 [facility] Aspartate aminotransferase [ Enzymatic activity/volume] in Serum or PlasmaOrdered By: Clarke Bertrand on 12-03-2022 AST [Catalytic activity/Vol] 23 U/L 13-39 [facility] Basophils Auto (Bld) [#/Vol] Ordered By: Clarke Bertrand on 12-03-2022 Basophils (Bld) [#/Vol] 0.0 10*3/uL 0.0-0.2 [facility] Basophils/100 WBC Auto (Bld) Ordered By: Clarke Bertrand on 12-03-2022 Basophils/100 WBC (Bld) 0.5 % . [facility] Bilirubin.total [Mass/volume ] in Serum or PlasmaOrdered By: Clarke Bertrand on 12-03-2022 Bilirubin [Mass/Vol] 0.6 mg/dL 0.3-1.0 [facility] Calcium [Mass/volume] in Ser um or PlasmaOrdered By: Clarke Bertrand on 12-03-2022 Calcium [Mass/Vol] 9.5 mg/dL 8.6-10.3 [facility] Carbon dioxide, total [Moles /volume] in Serum or PlasmaOrdered By: Clarke Bertrand on 12-03-2022 CO2 [Moles/Vol] 26.5 mmol/L 21.0-31.0 [facility] Chloride [Moles/volume] in S jessica or PlasmaOrdered By: Clarke Bertrand on 12-03-2022 Chloride [Moles/Vol] 106 mmol/L 98-107 [facility] Creatinine [Mass/volume] in Serum or PlasmaOrdered By: Clarke Bertrand on 12-03-2022 Creatinine [Mass/Vol] 0.81 mg/dL 0.70-1.30 [facility] Eosinophils Auto (Bld) [#/Vo l]Ordered By: Clarke Bertrand on 12-03-2022 Eosinophils (Bld) [#/Vol] 0.2 10*3/uL 0.0-0.45 [facility] Eosinophils/100 WBC Auto (Bl d)Ordered By: Clarke Bertrand on 12-03-2022 Eosinophils/100 WBC (Bld) 5.0 % . [facility] Erythrocyte distribution wid th Auto (RBC) [Ratio]Ordered By: Clarke Bertrand on 12-03-2022 Erythrocyte distribution width (RBC) [Ratio] 16.8 % 12.0-14.8 [facility] Erythrocyte sedimentation ra te by Photometric methodOrdered By: Clarke Bertrand on 12-03-2022 ESR Photometric method (Bld) [Velocity] 47 mm/hr 0-19 [facility] Globulin Calc (S) [Mass/Vol] Ordered By: Clarke Bertrand on 12-03-2022 Globulin (S) [Mass/Vol] 3.0 g/dL [facility] Glucose [Mass/volume] in Ser um or PlasmaOrdered By: Clarke Bertrand on 12-03-2022 Glucose [Mass/Vol] 87 mg/dL 70-100 [facility] Comment on above: ADA recommended refe rence rangeRandom Glucose Reference Range is dependent on time and content of last meal. Glucose of more than 200 mg/dL in a nonstressed, ambulatory subject supports the diagnosis of Diabetes Mellitus. Hematocrit Auto (Bld) [Volum e fraction]Ordered By: Clarke Bertrand on 12-03-2022 Hematocrit (Bld) [Volume fraction] 42.5 % 38.8-50.0 [facility] Hemoglobin [Mass/volume] in BloodOrdered By: Clarke Bertrand on 12-03-2022 Hemoglobin (Bld) [Mass/Vol] 14.1 g/dL 13.0-17.0 [facility] Leukocytes [#/volume] correc constance for nucleated erythrocytes in Blood by Automated counOrdered By: Clarke Bertrand on 12-03-2022 WBC corrected for nucl RBC Auto (Bld) [#/Vol] 4.4 10*3/uL 4.1-10.5 [facility] Lymphocytes Auto (Bld) [#/Vo l]Ordered By: Clarke Bertrand on 12-03-2022 Lymphocytes (Bld) [#/Vol] 1.1 10*3/uL 1.00-4.8 [facility] Lymphocytes/100 WBC Auto (Bl d)Ordered By: Clarke Bertrand on 12-03-2022 Lymphocytes/100 WBC (Bld) 26.0 % . [facility] MCH Auto (RBC) [Entitic mass ]Ordered By: Clarke Bertrand on 12-03-2022 MCH (RBC) [Entitic mass] 31.2 pg 27.5-35.2 [facility] MCHC Auto (RBC) [Mass/Vol]Or dered By: Clarke Bertrand on 12-03-2022 MCHC (RBC) [Mass/Vol] 33.2 g/dL 32.5-35.6 [facility] MCV Auto (RBC) [Entitic vol] Ordered By: Clarke Bertrand on 12-03-2022 MCV (RBC) [Entitic vol] 93.9 fL 83.5-101 [facility] Monocytes Auto (Bld) [#/Vol] Ordered By: Clarke Bertrand on 12-03-2022 Monocytes (Bld) [#/Vol] 0.7 10*3/uL 0.0-0.8 [facility] Monocytes/100 WBC Auto (Bld) Ordered By: Clarke Bertrand on 12-03-2022 Monocytes/100 WBC (Bld) 16.5 % . [facility] Neutrophils Auto (Bld) [#/Vo l]Ordered By: Clarke Bertrand on 12-03-2022 Neutrophils (Bld) [#/Vol] 2.3 10*3/uL 1.8-7.7 [facility] Neutrophils/100 WBC Auto (Bl d)Ordered By: Clarke Bertrand on 12-03-2022 Neutrophils/100 WBC (Bld) 52.0 % . [facility] No Panel InformationOrdered By: Clarke Bertrand on 12-03-2022 Estimated GFR (CKD-EPI) > 60.0 mL/Min [facility] Creatinine Clearance (Chem N/A [facility] Nucleated erythrocytes [Pres ence] in Blood by Automated countOrdered By: Clarke Bertrand on 12-03-2022 Nucleated RBC Auto Ql (Bld) 0.2 /100{WBC} 0-0.5 [facility] Platelet adequacy [Presence] in Blood by Light microscopyOrdered By: Clarke Bertrand on 12-03-2022 Platelets LM Ql (Bld) Normal Normal [facility] Platelet mean volume Auto (B ld) [Entitic vol]Ordered By: Clarke Bertrand on 12-03-2022 Platelet mean volume (Bld) [Entitic vol] 9.6 fL 6.6-10.1 [facility] Platelet morphology finding [Identifier] in BloodOrdered By: Clarke Bertrand on 12-03-2022 Platelet morphology finding Nom (Bld) Normal Normal [facility] Platelets Auto (Bld) [#/Vol] Ordered By: Clarke Bertrand on 12-03-2022 Platelets (Bld) [#/Vol] 132 10*3/uL 150-450 [facility] Potassium [Moles/volume] in Serum or PlasmaOrdered By: Clarke Bertrand on 12-03-2022 Potassium [Moles/Vol] 4.0 mmol/L 3.5-5.1 [facility] Protein [Mass/volume] in Ser um or PlasmaOrdered By: Clarke Bertrand on 12-03-2022 Protein [Mass/Vol] 7.0 g/dL 6.4-8.9 [facility] RBC Auto (Bld) [#/Vol]Ordere d By: Clarke Elza on 12-03-2022 RBC (Bld) [#/Vol] 4.53 10*6/uL 3.90-5.60 [facility] RBC morphologyOrdered By: Christopher cardenas Elza on 12-03-2022 RBC morphology finding Nom (Bld) Normal Normal [facility] Serum or plasma albumin/glob ulin mass ratioOrdered By: Clarke Bertrand on 12-03-2022 Albumin/Globulin [Mass ratio] 1.3 {ratio} [facility] Serum or plasma anion gap de terminationOrdered By: Clarke Bertrand on 12-03-2022 Anion gap [Moles/Vol] 11.5 mmol/L 6.0-15.0 [facility] Sodium [Moles/volume] in Ser um or PlasmaOrdered By: Clarke Bertrand on 12-03-2022 Sodium [Moles/Vol] 140 mmol/L 136-145 [facility] Urea nitrogen [Mass/volume] in Serum or PlasmaOrdered By: Clarke Bertrand on 12-03-2022 Urea nitrogen [Mass/Vol] 11 mg/dL 7-25 [facility] WBC Auto (Bld) [#/Vol]Ordere d By: Clarke Bertrand on 12-03-2022 WBC (Bld) [#/Vol] 4.4 10*3/uL 4.1-10.5 [facility] CNOVon 11-24-2022 CNOV Office Visit (CAEPAV ) SHIRLEY HART ([id number]) 1940 M Date Time Provider Department 11/24/22 8:40 AM CYNTHIA OLIVER During your visit today, we recorded the following information about you: Pulse Blood pressure Weight Height 86/minute 120/86 89.4 kg 1.905 m Referring Provider: CYNTHIA OLIVER [[id number]] Allergies As of Date: 11/24/2022 (No Known [...] Status:Closed by CYNTHIA OLIVER on 11/24/22 Normal [facility] Alanine aminotransferase [En zymatic activity/volume] in Serum or PlasmaOrdered By: Lashell Villar on 10-08-2022 ALT [Catalytic activity/Vol] 24 U/L 7-52 [facility] Albumin [Mass/volume] in Ser um or Plasma by Bromocresol green (BCG) dye binding methoOrdered By: Lashell Villar on 10-08-2022 Albumin BCG dye [Mass/Vol] 4.2 g/dL 3.5-5.7 [facility] Alkaline phosphatase [Enzyma tic activity/volume] in Serum or PlasmaOrdered By: Lashell Villar on 10-08-2022 ALP [Catalytic activity/Vol] 69 U/L 34-104 [facility] Aspartate aminotransferase [ Enzymatic activity/volume] in Serum or PlasmaOrdered By: Lashell Villar on 10-08-2022 AST [Catalytic activity/Vol] 32 U/L 13-39 [facility] Basophils Auto (Bld) [#/Vol] Ordered By: Lashell Villar on 10-08-2022 Basophils (Bld) [#/Vol] 0.0 10*3/uL 0.0-0.2 [facility] Basophils/100 WBC Auto (Bld) Ordered By: Lashell Villar on 10-08-2022 Basophils/100 WBC (Bld) 0.6 % . [facility] Bilirubin.total [Mass/volume ] in Serum or PlasmaOrdered By: Lashell Villar on 10-08-2022 Bilirubin [Mass/Vol] 0.6 mg/dL 0.3-1.0 [facility] Calcium [Mass/volume] in Ser um or PlasmaOrdered By: Lashell Villar on 10-08-2022 Calcium [Mass/Vol] 10.0 mg/dL 8.6-10.3 [facility] Carbon dioxide, total [Moles /volume] in Serum or PlasmaOrdered By: Lashell Villar on 10-08-2022 CO2 [Moles/Vol] 27.6 mmol/L 21.0-31.0 [facility] Chloride [Moles/volume] in S jessica or PlasmaOrdered By: Lashell Villar on 10-08-2022 Chloride [Moles/Vol] 103 mmol/L 98-107 [facility] Creatinine [Mass/volume] in Serum or PlasmaOrdered By: Lashell Villar on 10-08-2022 Creatinine [Mass/Vol] 0.79 mg/dL 0.70-1.30 [facility] Eosinophils Auto (Bld) [#/Vo l]Ordered By: Lashell Villar on 10-08-2022 Eosinophils (Bld) [#/Vol] 0.2 10*3/uL 0.0-0.45 [facility] Eosinophils/100 WBC Auto (Bl d)Ordered By: Lashell Villar on 10-08-2022 Eosinophils/100 WBC (Bld) 4.5 % . [facility] Erythrocyte distribution wid th Auto (RBC) [Ratio]Ordered By: Lashell Villar on 10-08-2022 Erythrocyte distribution width (RBC) [Ratio] 16.8 % 12.0-14.8 [facility] Erythrocyte sedimentation ra te by Photometric methodOrdered By: Lashell Villar on 10-08-2022 ESR Photometric method (Bld) [Velocity] 36 mm/hr 0-19 [facility] Globulin Calc (S) [Mass/Vol] Ordered By: Lashell Villar on 10-08-2022 Globulin (S) [Mass/Vol] 3.3 g/dL [facility] Glucose [Mass/volume] in Ser um or PlasmaOrdered By: Lashell Villar on 10-08-2022 Glucose [Mass/Vol] 87 mg/dL 70-100 [facility] Comment on above: ADA recommended refe rence rangeRandom Glucose Reference Range is dependent on time and content of last meal. Glucose of more than 200 mg/dL in a nonstressed, ambulatory subject supports the diagnosis of Diabetes Mellitus. Hematocrit Auto (Bld) [Volum e fraction]Ordered By: Lashell Villar on 10-08-2022 Hematocrit (Bld) [Volume fraction] 42.1 % 38.8-50.0 [facility] Hemoglobin [Mass/volume] in BloodOrdered By: Lashell Villar on 10-08-2022 Hemoglobin (Bld) [Mass/Vol] 14.0 g/dL 13.0-17.0 [facility] Leukocytes [#/volume] correc constance for nucleated erythrocytes in Blood by Automated counOrdered By: Lashell Villar on 10-08-2022 WBC corrected for nucl RBC Auto (Bld) [#/Vol] 4.7 10*3/uL 4.1-10.5 [facility] Lymphocytes Auto (Bld) [#/Vo l]Ordered By: Lashell Villar on 10-08-2022 Lymphocytes (Bld) [#/Vol] 1.2 10*3/uL 1.00-4.8 [facility] Lymphocytes/100 WBC Auto (Bl d)Ordered By: Lashell Villar on 10-08-2022 Lymphocytes/100 WBC (Bld) 24.4 % . [facility] MCH Auto (RBC) [Entitic mass ]Ordered By: Lashell Villar on 10-08-2022 MCH (RBC) [Entitic mass] 31.4 pg 27.5-35.2 [facility] MCHC Auto (RBC) [Mass/Vol]Or dered By: Lashell Villar on 10-08-2022 MCHC (RBC) [Mass/Vol] 33.3 g/dL 32.5-35.6 [facility] MCV Auto (RBC) [Entitic vol] Ordered By: Lashell Villar on 10-08-2022 MCV (RBC) [Entitic vol] 94.1 fL 83.5-101 [facility] Monocytes Auto (Bld) [#/Vol] Ordered By: Lashell Villar on 10-08-2022 Monocytes (Bld) [#/Vol] 0.7 10*3/uL 0.0-0.8 [facility] Monocytes/100 WBC Auto (Bld) Ordered By: Lashell Villar on 10-08-2022 Monocytes/100 WBC (Bld) 14.9 % . [facility] Neutrophils Auto (Bld) [#/Vo l]Ordered By: Lashell Villar on 10-08-2022 Neutrophils (Bld) [#/Vol] 2.6 10*3/uL 1.8-7.7 [facility] Neutrophils/100 WBC Auto (Bl d)Ordered By: Lashell Villar on 10-08-2022 Neutrophils/100 WBC (Bld) 55.6 % . [facility] No Panel InformationOrdered By: Lashell Villar on 10-08-2022 Estimated GFR (CKD-EPI) > 60.0 mL/Min [facility] Creatinine Clearance (Chem N/A [facility] Nucleated erythrocytes [Pres ence] in Blood by Automated countOrdered By: Lashell Villar on 10-08-2022 Nucleated RBC Auto Ql (Bld) 0.2 /100{WBC} 0-0.5 [facility] Platelet mean volume Auto (B ld) [Entitic vol]Ordered By: Lashell Villar on 10-08-2022 Platelet mean volume (Bld) [Entitic vol] 9.5 fL 6.6-10.1 [facility] Platelets Auto (Bld) [#/Vol] Ordered By: Lashell Villar on 10-08-2022 Platelets (Bld) [#/Vol] 148 10*3/uL 150-450 [facility] Potassium [Moles/volume] in Serum or PlasmaOrdered By: Lashell Villar on 10-08-2022 Potassium [Moles/Vol] 3.8 mmol/L 3.5-5.1 [facility] Protein [Mass/volume] in Ser um or PlasmaOrdered By: Lashell Villar on 10-08-2022 Protein [Mass/Vol] 7.5 g/dL 6.4-8.9 [facility] RBC Auto (Bld) [#/Vol]Ordere d By: Lashell Villar on 10-08-2022 RBC (Bld) [#/Vol] 4.47 10*6/uL 3.90-5.60 [facility] Serum or plasma albumin/glob ulin mass ratioOrdered By: Lashell Villar on 10-08-2022 Albumin/Globulin [Mass ratio] 1.3 {ratio} [facility] Serum or plasma anion gap de terminationOrdered By: Lashell Villar on 10-08-2022 Anion gap [Moles/Vol] 11.2 mmol/L 6.0-15.0 [facility] Sodium [Moles/volume] in Ser um or PlasmaOrdered By: Lashell Villar on 10-08-2022 Sodium [Moles/Vol] 138 mmol/L 136-145 [facility] Urea nitrogen [Mass/volume] in Serum or PlasmaOrdered By: Lashell Villar on 10-08-2022 Urea nitrogen [Mass/Vol] 14 mg/dL 7-25 [facility] WBC Auto (Bld) [#/Vol]Ordere d By: Lashell Villar on 10-08-2022 WBC (Bld) [#/Vol] 4.7 10*3/uL 4.1-10.5 [facility] Alanine aminotransferase [En zymatic activity/volume] in Serum or PlasmaOrdered By: Lashell Villar on 06-18-2022 ALT [Catalytic activity/Vol] 25 U/L 7-52 [facility] Albumin [Mass/volume] in Ser um or Plasma by Bromocresol green (BCG) dye binding methoOrdered By: Lashell Villar on 06-18-2022 Albumin BCG dye [Mass/Vol] 4.1 g/dL 3.5-5.7 [facility] Alkaline phosphatase [Enzyma tic activity/volume] in Serum or PlasmaOrdered By: aLshell Villar on 06-18-2022 ALP [Catalytic activity/Vol] 68 U/L 34-104 [facility] Aspartate aminotransferase [ Enzymatic activity/volume] in Serum or PlasmaOrdered By: Lashell Villar on 06-18-2022 AST [Catalytic activity/Vol] 33 U/L 13-39 [facility] Basophils Auto (Bld) [#/Vol] Ordered By: Lashlel Villar on 06-18-2022 Basophils (Bld) [#/Vol] 0.0 10*3/uL 0.0-0.2 [facility] Basophils/100 WBC Auto (Bld) Ordered By: Lashell Villar on 06-18-2022 Basophils/100 WBC (Bld) 0.5 % . [facility] Bilirubin.total [Mass/volume ] in Serum or PlasmaOrdered By: Lashell Villar on 06-18-2022 Bilirubin [Mass/Vol] 0.5 mg/dL 0.3-1.0 [facility] Calcium [Mass/volume] in Ser um or PlasmaOrdered By: Lashell Villar on 06-18-2022 Calcium [Mass/Vol] 9.7 mg/dL 8.6-10.3 [facility] Carbon dioxide, total [Moles /volume] in Serum or PlasmaOrdered By: Lashell Villar on 06-18-2022 CO2 [Moles/Vol] 27.2 mmol/L 21.0-31.0 [facility] Chloride [Moles/volume] in S jessica or PlasmaOrdered By: Lashell Villar on 06-18-2022 Chloride [Moles/Vol] 105 mmol/L 98-107 [facility] Creatinine [Mass/volume] in Serum or PlasmaOrdered By: Lashell Villar on 06-18-2022 Creatinine [Mass/Vol] 0.81 mg/dL 0.70-1.30 [facility] Eosinophils Auto (Bld) [#/Vo l]Ordered By: Lashell Villar on 06-18-2022 Eosinophils (Bld) [#/Vol] 0.2 10*3/uL 0.0-0.45 [facility] Eosinophils/100 WBC Auto (Bl d)Ordered By: Lashell Villar on 06-18-2022 Eosinophils/100 WBC (Bld) 4.6 % . [facility] Erythrocyte distribution wid th Auto (RBC) [Ratio]Ordered By: Lashell Villar on 06-18-2022 Erythrocyte distribution width (RBC) [Ratio] 16.1 % 12.0-14.8 [facility] Erythrocyte sedimentation ra te by Photometric methodOrdered By: Lashell Villar on 06-18-2022 ESR Photometric method (Bld) [Velocity] 40 mm/hr 0-19 [facility] Globulin Calc (S) [Mass/Vol] Ordered By: Lashell Villar on 06-18-2022 Globulin (S) [Mass/Vol] 3.1 g/dL [facility] Glucose [Mass/volume] in Ser um or PlasmaOrdered By: Lashell Villar on 06-18-2022 Glucose [Mass/Vol] 75 mg/dL 70-100 [facility] Comment on above: ADA recommended refe rence rangeRandom Glucose Reference Range is dependent on time and content of last meal. Glucose of more than 200 mg/dL in a nonstressed, ambulatory subject supports the diagnosis of Diabetes Mellitus. Hematocrit Auto (Bld) [Volum e fraction]Ordered By: Lashell Villar on 06-18-2022 Hematocrit (Bld) [Volume fraction] 43.6 % 38.8-50.0 [facility] Hemoglobin [Mass/volume] in BloodOrdered By: Lashell Villar on 06-18-2022 Hemoglobin (Bld) [Mass/Vol] 14.3 g/dL 13.0-17.0 [facility] Leukocytes [#/volume] correc constance for nucleated erythrocytes in Blood by Automated counOrdered By: Lashell Villar on 06-18-2022 WBC corrected for nucl RBC Auto (Bld) [#/Vol] 4.2 10*3/uL 4.1-10.5 [facility] Lymphocytes Auto (Bld) [#/Vo l]Ordered By: Lashell Villar on 06-18-2022 Lymphocytes (Bld) [#/Vol] 1.1 10*3/uL 1.00-4.8 [facility] Lymphocytes/100 WBC Auto (Bl d)Ordered By: Lashell Villar on 06-18-2022 Lymphocytes/100 WBC (Bld) 26.9 % . [facility] MCH Auto (RBC) [Entitic mass ]Ordered By: Lashell Villar on 06-18-2022 MCH (RBC) [Entitic mass] 30.8 pg 27.5-35.2 [facility] MCHC Auto (RBC) [Mass/Vol]Or dered By: Lashell Villar on 06-18-2022 MCHC (RBC) [Mass/Vol] 32.8 g/dL 32.5-35.6 [facility] MCV Auto (RBC) [Entitic vol] Ordered By: Lashell Villar on 06-18-2022 MCV (RBC) [Entitic vol] 93.9 fL 83.5-101 [facility] Monocytes Auto (Bld) [#/Vol] Ordered By: Lashell Villar on 06-18-2022 Monocytes (Bld) [#/Vol] 0.7 10*3/uL 0.0-0.8 [facility] Monocytes/100 WBC Auto (Bld) Ordered By: Lashell Villar on 06-18-2022 Monocytes/100 WBC (Bld) 16.6 % . [facility] Neutrophils Auto (Bld) [#/Vo l]Ordered By: Lashell Villar on 06-18-2022 Neutrophils (Bld) [#/Vol] 2.2 10*3/uL 1.8-7.7 [facility] Neutrophils/100 WBC Auto (Bl d)Ordered By: Lashell Villar on 06-18-2022 Neutrophils/100 WBC (Bld) 51.4 % . [facility] No Panel InformationOrdered By: Lashell Villar on 06-18-2022 Estimated GFR (CKD-EPI) > 60.0 mL/Min [facility] Pharmacy Creatinine Clearance (Chem N/A [facility] Nucleated erythrocytes [Pres ence] in Blood by Automated countOrdered By: Lashell Villar on 06-18-2022 Nucleated RBC Auto Ql (Bld) 0.1 /100{WBC} 0-0.5 [facility] Platelet mean volume Auto (B ld) [Entitic vol]Ordered By: Lashell Villar on 06-18-2022 Platelet mean volume (Bld) [Entitic vol] 9.2 fL 6.6-10.1 [facility] Platelets Auto (Bld) [#/Vol] Ordered By: Lashell Villar on 06-18-2022 Platelets (Bld) [#/Vol] 145 10*3/uL 150-450 [facility] Potassium [Moles/volume] in Serum or PlasmaOrdered By: Lashell Villar on 06-18-2022 Potassium [Moles/Vol] 3.8 mmol/L 3.5-5.1 [facility] Protein [Mass/volume] in Ser um or PlasmaOrdered By: Lashell Villar on 06-18-2022 Protein [Mass/Vol] 7.2 g/dL 6.4-8.9 [facility] RBC Auto (Bld) [#/Vol]Ordere d By: Lashell Villar on 06-18-2022 RBC (Bld) [#/Vol] 4.64 10*6/uL 3.90-5.60 [facility] Serum or plasma albumin/glob ulin mass ratioOrdered By: Lashell Villar on 06-18-2022 Albumin/Globulin [Mass ratio] 1.3 {ratio} [facility] Serum or plasma anion gap de terminationOrdered By: Lashell Villar on 06-18-2022 Anion gap [Moles/Vol] 11.6 mmol/L 6.0-15.0 [facility] Sodium [Moles/volume] in Ser um or PlasmaOrdered By: Lashell Villar on 06-18-2022 Sodium [Moles/Vol] 140 mmol/L 136-145 [facility] Urea nitrogen [Mass/volume] in Serum or PlasmaOrdered By: Lashell Villar on 06-18-2022 Urea nitrogen [Mass/Vol] 15 mg/dL 7-25 [facility] WBC Auto (Bld) [#/Vol]Ordere d By: Lashell Villar on 06-18-2022 WBC (Bld) [#/Vol] 4.2 10*3/uL 4.1-10.5 [facility] Alanine aminotransferase [En zymatic activity/volume] in Serum or PlasmaOrdered By: Lashell Villar on 04-23-2022 ALT [Catalytic activity/Vol] 21 U/L 7-52 [facility] Albumin [Mass/volume] in Ser um or Plasma by Bromocresol green (BCG) dye binding methoOrdered By: Lashell Villar on 04-23-2022 Albumin BCG dye [Mass/Vol] 4.3 g/dL 3.5-5.7 [facility] Alkaline phosphatase [Enzyma tic activity/volume] in Serum or PlasmaOrdered By: Lashell Villar on 04-23-2022 ALP [Catalytic activity/Vol] 62 U/L 34-104 [facility] Aspartate aminotransferase [ Enzymatic activity/volume] in Serum or PlasmaOrdered By: Lashell Villar on 04-23-2022 AST [Catalytic activity/Vol] 24 U/L 13-39 [facility] Basophils Auto (Bld) [#/Vol] Ordered By: Lashell Villar on 04-23-2022 Basophils (Bld) [#/Vol] 0.0 10*3/uL 0.0-0.2 [facility] Basophils/100 WBC Auto (Bld) Ordered By: Lashell Villar on 04-23-2022 Basophils/100 WBC (Bld) 0.3 % . [facility] Bilirubin.total [Mass/volume ] in Serum or PlasmaOrdered By: Lashell Villar on 04-23-2022 Bilirubin [Mass/Vol] 0.7 mg/dL 0.3-1.0 [facility] Calcium [Mass/volume] in Ser um or PlasmaOrdered By: Lashell Villar on 04-23-2022 Calcium [Mass/Vol] 10.4 mg/dL 8.6-10.3 [facility] Carbon dioxide, total [Moles /volume] in Serum or PlasmaOrdered By: Lashell Villar on 04-23-2022 CO2 [Moles/Vol] 23.5 mmol/L 21.0-31.0 [facility] Chloride [Moles/volume] in S jessica or PlasmaOrdered By: Lashell Villar on 04-23-2022 Chloride [Moles/Vol] 106 mmol/L 98-107 [facility] Creatinine [Mass/volume] in Serum or PlasmaOrdered By: Lashell Villar on 04-23-2022 Creatinine [Mass/Vol] 0.82 mg/dL 0.70-1.30 [facility] Eosinophils Auto (Bld) [#/Vo l]Ordered By: Lashell Villar on 04-23-2022 Eosinophils (Bld) [#/Vol] 0.2 10*3/uL 0.0-0.45 [facility] Eosinophils/100 WBC Auto (Bl d)Ordered By: Lashell Villar on 04-23-2022 Eosinophils/100 WBC (Bld) 2.9 % . [facility] Erythrocyte distribution wid th Auto (RBC) [Ratio]Ordered By: Lashell Villar on 04-23-2022 Erythrocyte distribution width (RBC) [Ratio] 16.2 % 12.0-14.8 [facility] Erythrocyte sedimentation ra te by Photometric methodOrdered By: Lashell Villar on 04-23-2022 ESR Photometric method (Bld) [Velocity] 50 mm/hr 0-19 [facility] Globulin Calc (S) [Mass/Vol] Ordered By: Lashell Villar on 04-23-2022 Globulin (S) [Mass/Vol] 2.9 g/dL [facility] Glucose [Mass/volume] in Ser um or PlasmaOrdered By: Lashell Villar on 04-23-2022 Glucose [Mass/Vol] 91 mg/dL 74-109 [facility] Comment on above: ADA recommended refe rence rangeRandom Glucose Reference Range is dependent on time and content of last meal. Glucose of more than 200 mg/dL in a nonstressed, ambulatory subject supports the diagnosis of Diabetes Mellitus. Hematocrit Auto (Bld) [Volum e fraction]Ordered By: Lashell Villar on 04-23-2022 Hematocrit (Bld) [Volume fraction] 41.7 % 38.8-50.0 [facility] Hemoglobin [Mass/volume] in BloodOrdered By: Lashell Villar on 04-23-2022 Hemoglobin (Bld) [Mass/Vol] 14.0 g/dL 13.0-17.0 [facility] Laboratory - Chemistry and C hemistry - challengeOrdered By: Lashell Villar on 04-23-2022 GFR/1.73 sq M.predicted MDRD (S/P/Bld) [Vol rate/Area] mL/min/{1.73_m2} [facility] Leukocytes [#/volume] correc constance for nucleated erythrocytes in Blood by Automated counOrdered By: Lashell Villar on 04-23-2022 WBC corrected for nucl RBC Auto (Bld) [#/Vol] 6.1 10*3/uL 4.1-10.5 [facility] Lymphocytes Auto (Bld) [#/Vo l]Ordered By: Lashell Villar on 04-23-2022 Lymphocytes (Bld) [#/Vol] 1.3 10*3/uL 1.00-4.8 [facility] Lymphocytes/100 WBC Auto (Bl d)Ordered By: Lashell Villar on 04-23-2022 Lymphocytes/100 WBC (Bld) 20.6 % . [facility] MCH Auto (RBC) [Entitic mass ]Ordered By: Lashell Villar on 04-23-2022 MCH (RBC) [Entitic mass] 31.1 pg 27.5-35.2 [facility] MCHC Auto (RBC) [Mass/Vol]Or dered By: Lashell Villar on 04-23-2022 MCHC (RBC) [Mass/Vol] 33.7 g/dL 32.5-35.6 [facility] MCV Auto (RBC) [Entitic vol] Ordered By: Lashell Villar on 04-23-2022 MCV (RBC) [Entitic vol] 92.4 fL 83.5-101 [facility] Monocytes Auto (Bld) [#/Vol] Ordered By: Lashell Villar on 04-23-2022 Monocytes (Bld) [#/Vol] 0.7 10*3/uL 0.0-0.8 [facility] Monocytes/100 WBC Auto (Bld) Ordered By: Lashell Villar on 04-23-2022 Monocytes/100 WBC (Bld) 11.0 % . [facility] Neutrophils Auto (Bld) [#/Vo l]Ordered By: Lashell Villar on 04-23-2022 Neutrophils (Bld) [#/Vol] 4.0 10*3/uL 1.8-7.7 [facility] Neutrophils/100 WBC Auto (Bl d)Ordered By: Lashell Villar on 04-23-2022 Neutrophils/100 WBC (Bld) 65.2 % . [facility] No Panel InformationOrdered By: Lashell Villar on 04-23-2022 Pharmacy Creatinine Clearance (Chem N/A [facility] Nucleated erythrocytes [Pres ence] in Blood by Automated countOrdered By: Lashell Villar on 04-23-2022 Nucleated RBC Auto Ql (Bld) 0.1 /100{WBC} 0-0.5 [facility] Platelet mean volume Auto (B ld) [Entitic vol]Ordered By: Lashell Villar on 04-23-2022 Platelet mean volume (Bld) [Entitic vol] 9.3 fL 6.6-10.1 [facility] Platelets Auto (Bld) [#/Vol] Ordered By: Lashell Villar on 04-23-2022 Platelets (Bld) [#/Vol] 152 10*3/uL 150-450 [facility] Potassium [Moles/volume] in Serum or PlasmaOrdered By: Lashell Villar on 04-23-2022 Potassium [Moles/Vol] 3.8 mmol/L 3.5-5.1 [facility] Protein [Mass/volume] in Ser um or PlasmaOrdered By: Lashell Villar on 04-23-2022 Protein [Mass/Vol] 7.2 g/dL 6.4-8.9 [facility] RBC Auto (Bld) [#/Vol]Ordere d By: aLshell Villar on 04-23-2022 RBC (Bld) [#/Vol] 4.51 10*6/uL 3.90-5.60 [facility] Serum or plasma albumin/glob ulin mass ratioOrdered By: Lashell Villar on 04-23-2022 Albumin/Globulin [Mass ratio] 1.5 {ratio} [facility] Serum or plasma anion gap de terminationOrdered By: Lashell Villar on 04-23-2022 Anion gap [Moles/Vol] 12.3 mmol/L 6.0-15.0 [facility] Sodium [Moles/volume] in Ser um or PlasmaOrdered By: Lashell Villar on 04-23-2022 Sodium [Moles/Vol] 138 mmol/L 136-145 [facility] Urea nitrogen [Mass/volume] in Serum or PlasmaOrdered By: Lashell Villar on 04-23-2022 Urea nitrogen [Mass/Vol] 16 mg/dL 7-25 [facility] WBC Auto (Bld) [#/Vol]Ordere d By: Lashell Villar on 04-23-2022 WBC (Bld) [#/Vol] 6.1 10*3/uL 4.1-10.5 [facility] Basophils Auto (Bld) [#/Vol] Ordered By: Clarke Bertrand on 12-10-2021 Basophils (Bld) [#/Vol] 0.0 10*3/uL 0.0-0.2 [facility] Basophils/100 WBC Auto (Bld) Ordered By: Clarke Bertrand on 12-10-2021 Basophils/100 WBC (Bld) 0.4 % . [facility] Body fluid albumin measureme nt (mass/volume)Ordered By: Clarke Bertrand on 12-10-2021 Albumin (Body fld) [Mass/Vol] 3.6 g/dL 3.2-5.5 [facility] Creatinine and Glomerular fi ltration rate.predicted panel (S/P/Bld)Ordered By: Clarke Bertrand on 12-10-2021 Creatinine [Mass/Vol] 0.81 mg/dL 0.64-1.27 [facility] Eosinophils Auto (Bld) [#/Vo l]Ordered By: Clarke Bertrand on 12-10-2021 Eosinophils (Bld) [#/Vol] 0.3 10*3/uL 0.0-0.45 [facility] Eosinophils/100 WBC Auto (Bl d)Ordered By: Clarke Bertrand on 12-10-2021 Eosinophils/100 WBC (Bld) 3.6 % . [facility] Erythrocyte distribution wid th Auto (RBC) [Ratio]Ordered By: Clarke Bertrand on 12-10-2021 Erythrocyte distribution width (RBC) [Ratio] 16.8 % 12.0-14.8 [facility] Erythrocyte sedimentation ra te by Photometric methodOrdered By: Clarke Bertrand on 12-10-2021 ESR Photometric method (Bld) [Velocity] 45 mm/hr 0-19 [facility] Estimated glomerular filtrat ion rate (GFR) non- AmericanOrdered By: Clarke Bertrand on 12-10-2021 GFR/1.73 sq M.predicted among non-blacks MDRD (S/P/Bld) [Vol rate/Area] > 60 mL/Min [facility] Globulin Calc (S) [Mass/Vol] Ordered By: Clarke Bertrand on 12-10-2021 Globulin (S) [Mass/Vol] 3.5 g/dL [facility] Hematocrit Auto (Bld) [Volum e fraction]Ordered By: Clarke Bertrand on 12-10-2021 Hematocrit (Bld) [Volume fraction] 46.0 % 38.8-50.0 [facility] Hemoglobin [Mass/volume] in BloodOrdered By: Clarke Bertrand on 12-10-2021 Hemoglobin (Bld) [Mass/Vol] 14.8 g/dL 13.0-17.0 [facility] Laboratory - Hematology and Cell countsOrdered By: Clarke Bertrand on 12-10-2021 Nucleated RBC/100 WBC (Bld) [Ratio] 0.1 % 0-0.5 [facility] Leukocytes [#/volume] in Blo od by Automated countOrdered By: Clarke Bertrand on 12-10-2021 WBC (Bld) [#/Vol] 7.9 10*3/uL 4.5-11.0 [facility] Lymphocytes Auto (Bld) [#/Vo l]Ordered By: Clarke Bertrand on 12-10-2021 Lymphocytes (Bld) [#/Vol] 1.1 10*3/uL 1.00-4.8 [facility] Lymphocytes/100 WBC Auto (Bl d)Ordered By: Clarke Bertrand on 12-10-2021 Lymphocytes/100 WBC (Bld) 14.4 % . [facility] MCH Auto (RBC) [Entitic mass ]Ordered By: Clarke Bertrand on 12-10-2021 MCH (RBC) [Entitic mass] 30.1 pg 27.5-35.2 [facility] MCHC Auto (RBC) [Mass/Vol]Or dered By: Clarke Bertrand on 12-10-2021 MCHC (RBC) [Mass/Vol] 32.1 g/dL 32.5-35.6 [facility] MCV Auto (RBC) [Entitic vol] Ordered By: Clarke Bertrand on 12-10-2021 MCV (RBC) [Entitic vol] 93.6 fL 83.5-101 [facility] Monocytes Auto (Bld) [#/Vol] Ordered By: Clarke Bertrand on 12-10-2021 Monocytes (Bld) [#/Vol] 0.9 10*3/uL 0.0-0.8 [facility] Monocytes/100 WBC Auto (Bld) Ordered By: Clarke Bertrand on 12-10-2021 Monocytes/100 WBC (Bld) 11.1 % . [facility] Neutrophils Auto (Bld) [#/Vo l]Ordered By: Clarke Bertrand on 12-10-2021 Neutrophils (Bld) [#/Vol] 5.6 10*3/uL 1.8-7.7 [facility] Neutrophils/100 WBC Auto (Bl d)Ordered By: Clarke Bertrand on 12-10-2021 Neutrophils/100 WBC (Bld) 70.5 % . [facility] No Panel InformationOrdered By: Clarke Bertrand on 12-10-2021 Estimated GFR () > 60 mL/Min [facility] Comment on above: GFR estimated refere nce range: According to KDOQI guidelines, <60 ml/min/1.73m2 is sufficient to diagnose a patient with chronic kidney disease. Pharmacy Creatinine Clearance (Chem N/A [facility] Platelet mean volume Auto (B ld) [Entitic vol]Ordered By: Clarke Bertrand on 12-10-2021 Platelet mean volume (Bld) [Entitic vol] 9.4 fL 6.6-10.1 [facility] Platelets Auto (Bld) [#/Vol] Ordered By: Clarke Bertrand on 12-10-2021 Platelets (Bld) [#/Vol] 174 10*3/uL 150-450 [facility] Protein [Mass/volume] in Ser um or PlasmaOrdered By: Clarke Bertrand on 12-10-2021 Protein [Mass/Vol] 7.1 g/dL 6.1-7.9 [facility] RBC Auto (Bld) [#/Vol]Ordere d By: Clarke Bertrand on 12-10-2021 RBC (Bld) [#/Vol] 4.92 10*6/uL 3.90-5.60 [facility] Serum or plasma alanine marie otransferase measurement without P-5'-P (enzymatic activiOrdered By: Clarke Bertrand on 12-10-2021 ALT No additional P-5'-P [Catalytic activity/Vol] 22 U/L 10-60 [facility] Serum or plasma albumin/glob ulin mass ratioOrdered By: Clarke Bertrand on 12-10-2021 Albumin/Globulin [Mass ratio] 1.0 {ratio} [facility] Serum or plasma alkaline samantha sphatase measurement (enzymatic activity/volume)Ordered By: Clarke Bertrand on 12-10-2021 ALP [Catalytic activity/Vol] 71 U/L 32-92 [facility] Serum or plasma anion gap de terminationOrdered By: Clarke Bertrand on 12-10-2021 Anion gap [Moles/Vol] 15.4 mmol/L 6.0-15.0 [facility] Serum or plasma aspartate am inotransferase measurement (enzymatic activity/volume)Ordered By: Clarke Bertrand on 12-10-2021 AST [Catalytic activity/Vol] 23 U/L 10-42 [facility] Serum or plasma calcium timo urement (mass/volume)Ordered By: Clarke Bertrand on 12-10-2021 Calcium [Mass/Vol] 10.0 mg/dL 8.2-10.2 [facility] Serum or plasma chloride alexey surement (moles/volume)Ordered By: Clarke Bertrand on 12-10-2021 Chloride [Moles/Vol] 101 mmol/L 95-114 [facility] Serum or plasma glucose timo urement (mass/volume)Ordered By: Clarke Bertrand on 12-10-2021 Glucose [Mass/Vol] 88 mg/dL 70-100 [facility] Comment on above: ADA recommended refe rence rangeRandom Glucose Reference Range is dependent on time and content of last meal. Glucose of more than 200 mg/dL in a nonstressed, ambulatory subject supports the diagnosis of Diabetes Mellitus. Serum or plasma potassium me asurement (moles/volume)Ordered By: Clarke Bertrand on 12-10-2021 Potassium [Moles/Vol] 4.1 mmol/L 3.5-5.1 [facility] Serum or plasma sodium measu rement (moles/volume)Ordered By: Clarke Bertrand on 12-10-2021 Sodium [Moles/Vol] 136 mmol/L 136-146 [facility] Serum or plasma total biliru bin measurement (mass/volume)Ordered By: Clarke Bertrand on 12-10-2021 Bilirubin [Mass/Vol] 0.9 mg/dL 0.3-1.2 [facility] Serum or plasma total carbon dioxide measurement (moles/volume)Ordered By: Clarke Bertrand on 12-10-2021 CO2 [Moles/Vol] 23.7 mmol/L 22.0-30.0 [facility] Serum or plasma urea nitroge n measurement (mass/volume)Ordered By: Clarke Bertrand on 12-10-2021 Urea nitrogen [Mass/Vol] 15 mg/dL 9 [facility] Albumin [Mass/volume] in Ser um or PlasmaOrdered By: Clarke Bertrand on 10-17-2021 Albumin [Mass/Vol] 3.8 g/dL 3.2-5.5 [facility] Basophils Auto (Bld) [#/Vol] Ordered By: Clarke Bertrand on 10-17-2021 Basophils (Bld) [#/Vol] 0.0 10*3/uL 0.0-0.2 [facility] Basophils/100 WBC Auto (Bld) Ordered By: Clarke Bertrand on 10-17-2021 Basophils/100 WBC (Bld) 0.4 % . [facility] Blood hemoglobin measurement (mass/volume)Ordered By: Clarke Bertrand on 10-17-2021 Hemoglobin (Bld) [Mass/Vol] 14.6 g/dL 13.0-17.0 [facility] Blood leukocytes automated c ount (number/volume)Ordered By: Clarke Bertrand on 10-17-2021 WBC (Bld) [#/Vol] 4.8 10*3/uL 4.5-11.0 [facility] Creatinine and Glomerular fi ltration rate.predicted panel (S/P/Bld)Ordered By: Clarke Bertrand on 10-17-2021 Creatinine [Mass/Vol] 0.86 mg/dL 0.64-1.27 [facility] Eosinophils Auto (Bld) [#/Vo l]Ordered By: Clarke Bertrand on 10-17-2021 Eosinophils (Bld) [#/Vol] 0.2 10*3/uL 0.0-0.45 [facility] Eosinophils/100 WBC Auto (Bl d)Ordered By: Clarke Bertrand on 10-17-2021 Eosinophils/100 WBC (Bld) 4.4 % . [facility] Erythrocyte distribution wid th Auto (RBC) [Ratio]Ordered By: Clarke Bertrand on 10-17-2021 Erythrocyte distribution width (RBC) [Ratio] 16.6 % 12.0-14.8 [facility] Erythrocyte sedimentation ra te by Photometric methodOrdered By: Clarke Bertrand on 10-17-2021 ESR Photometric method (Bld) [Velocity] 37 mm/hr 0-19 [facility] Estimated glomerular filtrat ion rate (GFR) non- AmericanOrdered By: Clarke Bertrand on 10-17-2021 GFR/1.73 sq M.predicted among non-blacks MDRD (S/P/Bld) [Vol rate/Area] > 60 mL/Min [facility] Globulin Calc (S) [Mass/Vol] Ordered By: Clarke Bertrand on 10-17-2021 Globulin (S) [Mass/Vol] 3.1 g/dL [facility] Hematocrit Auto (Bld) [Volum e fraction]Ordered By: Clarke Bertrand on 10-17-2021 Hematocrit (Bld) [Volume fraction] 44.2 % 38.8-50.0 [facility] Laboratory - Hematology and Cell countsOrdered By: Clarke Bertrand on 10-17-2021 Nucleated RBC/100 WBC (Bld) [Ratio] 0.2 % 0-0.5 [facility] Lymphocytes Auto (Bld) [#/Vo l]Ordered By: Clarke Bertrand on 10-17-2021 Lymphocytes (Bld) [#/Vol] 1.2 10*3/uL 1.00-4.8 [facility] Lymphocytes/100 WBC Auto (Bl d)Ordered By: Clarke Bertrand on 10-17-2021 Lymphocytes/100 WBC (Bld) 25.9 % . [facility] MCH Auto (RBC) [Entitic mass ]Ordered By: Clarke Bertrand on 10-17-2021 MCH (RBC) [Entitic mass] 30.8 pg 27.5-35.2 [facility] MCHC Auto (RBC) [Mass/Vol]Or dered By: Clarke Bertrand on 10-17-2021 MCHC (RBC) [Mass/Vol] 33.1 g/dL 32.5-35.6 [facility] MCV Auto (RBC) [Entitic vol] Ordered By: Clarke Bertrand on 10-17-2021 MCV (RBC) [Entitic vol] 93.2 fL 83.5-101 [facility] Monocytes Auto (Bld) [#/Vol] Ordered By: Clarke Bertrand on 10-17-2021 Monocytes (Bld) [#/Vol] 0.6 10*3/uL 0.0-0.8 [facility] Monocytes/100 WBC Auto (Bld) Ordered By: Clarke Bertrand on 10-17-2021 Monocytes/100 WBC (Bld) 12.9 % . [facility] Neutrophils Auto (Bld) [#/Vo l]Ordered By: Clarke Bertrand on 10-17-2021 Neutrophils (Bld) [#/Vol] 2.7 10*3/uL 1.8-7.7 [facility] Neutrophils/100 WBC Auto (Bl d)Ordered By: Clarke Bertrand on 10-17-2021 Neutrophils/100 WBC (Bld) 56.4 % . [facility] No Panel InformationOrdered By: Clarke Bertrand on 10-17-2021 Estimated GFR () > 60 mL/Min [facility] Comment on above: GFR estimated refere nce range: According to KDOQI guidelines, <60 ml/min/1.73m2 is sufficient to diagnose a patient with chronic kidney disease. Pharmacy Creatinine Clearance (Chem N/A [facility] Platelet mean volume Auto (B ld) [Entitic vol]Ordered By: Clarke Bertrand on 10-17-2021 Platelet mean volume (Bld) [Entitic vol] 8.9 fL 6.6-10.1 [facility] Platelets Auto (Bld) [#/Vol] Ordered By: Clarke Bertrand on 10-17-2021 Platelets (Bld) [#/Vol] 176 10*3/uL 150-450 [facility] Protein [Mass/volume] in Ser um or PlasmaOrdered By: Clarke Bertrand on 10-17-2021 Protein [Mass/Vol] 6.9 g/dL 6.1-7.9 [facility] RBC Auto (Bld) [#/Vol]Ordere d By: Clarke Bertrand on 10-17-2021 RBC (Bld) [#/Vol] 4.74 10*6/uL 3.90-5.60 [facility] Serum or plasma alanine marie otransferase measurement without P-5'-P (enzymatic activiOrdered By: Clarke Bertrand on 10-17-2021 ALT No additional P-5'-P [Catalytic activity/Vol] 22 U/L 10-60 [facility] Serum or plasma albumin/glob ulin mass ratioOrdered By: Clarke Bertrand on 10-17-2021 Albumin/Globulin [Mass ratio] 1.2 {ratio} [facility] Serum or plasma alkaline samantha sphatase measurement (enzymatic activity/volume)Ordered By: Clarke Bertrand on 10-17-2021 ALP [Catalytic activity/Vol] 72 U/L 32-92 [facility] Serum or plasma anion gap de terminationOrdered By: Clarke Bertrand on 10-17-2021 Anion gap [Moles/Vol] 13.2 mmol/L 6.0-15.0 [facility] Serum or plasma aspartate am inotransferase measurement (enzymatic activity/volume)Ordered By: Clakre Bertrand on 10-17-2021 AST [Catalytic activity/Vol] 31 U/L 10-42 [facility] Serum or plasma calcium timo urement (mass/volume)Ordered By: Clarke Bertrand on 10-17-2021 Calcium [Mass/Vol] 9.6 mg/dL 8.2-10.2 [facility] Serum or plasma chloride alexey surement (moles/volume)Ordered By: Clarke Bertrand on 10-17-2021 Chloride [Moles/Vol] 101 mmol/L 95-114 [facility] Serum or plasma glucose timo urement (mass/volume)Ordered By: Clarke Bertrand on 10-17-2021 Glucose [Mass/Vol] 86 mg/dL 70-100 [facility] Comment on above: ADA recommended refe rence [...] on 10-17-2021 Potassium [Moles/Vol] 4.4 mmol/L 3.5-5.1 [facility] Serum or plasma sodium measu rement (moles/volume)Ordered By: Clarke Bertrand on 10-17-2021 Sodium [Moles/Vol] 136 mmol/L 136-146 [facility] Serum or plasma total biliru bin measurement (mass/volume)Ordered By: Clarke Bertrand on 10-17-2021 Bilirubin [Mass/Vol] 0.3 mg/dL 0.3-1.2 [facility] Serum or plasma total carbon dioxide measurement (moles/volume)Ordered By: Clarke Bertrand on 10-17-2021 CO2 [Moles/Vol] 26.2 mmol/L 22.0-30.0 [facility] Serum or plasma urea nitroge n measurement (mass/volume)Ordered By: Clarke Bertrand on 10-17-2021 Urea nitrogen [Mass/Vol] 15 mg/dL 9-23 [facility] COVID-19 Positive/NegativeOr dered By: Vickey Moeller on 09-13-2021 SARS-CoV-2 (COVID-19) N gene ELENA+probe Ql (Resp) Negative Negative [facility] Comment on above: Testing for SARS-CoV -2 by RT-PCR This test was developed and its performance characteristics determined by [employer] ([employer]) and validated at the [facility]. This test has not been FDA cleared [...] and its performance characteristics determined by [employer] ([employer]) and validated at the [facility]. This test has not been FDA cleared [...] 08-22-2021 Basophils (Bld) [#/Vol] 0.0 10*3/uL 0.0-0.2 [facility] Basophils/100 WBC Auto (Bld) Ordered By: Clarke Bertrand on 08-22-2021 Basophils/100 WBC (Bld) 0.7 % . [facility] Blood hemoglobin measurement (mass/volume)Ordered By: Clarke Bertrand on 08-22-2021 Hemoglobin (Bld) [Mass/Vol] 14.4 g/dL 13.0-17.0 [facility] Blood leukocytes automated c ount (number/volume)Ordered By: Clarke Bertrand on 08-22-2021 WBC (Bld) [#/Vol] 3.2 10*3/uL 4.5-11.0 [facility] Body fluid albumin measureme nt (mass/volume)Ordered By: Clarke Bertrand on 08-22-2021 Albumin (Body fld) [Mass/Vol] 3.7 g/dL 3.2-5.5 [facility] Creatinine and Glomerular fi ltration rate.predicted panel (S/P/Bld)Ordered By: Clarke Bertrand on 08-22-2021 Creatinine [Mass/Vol] 0.78 mg/dL 0.64-1.27 [facility] Eosinophils Auto (Bld) [#/Vo l]Ordered By: Clarke Bertrand on 08-22-2021 Eosinophils (Bld) [#/Vol] 0.1 10*3/uL 0.0-0.45 [facility] Eosinophils/100 WBC Auto (Bl d)Ordered By: Clarke Bertrand on 08-22-2021 Eosinophils/100 WBC (Bld) 4.5 % . [facility] Erythrocyte distribution wid th Auto (RBC) [Ratio]Ordered By: Clarke Bertrand on 08-22-2021 Erythrocyte distribution width (RBC) [Ratio] 16.1 % 12.0-14.8 [facility] Erythrocyte sedimentation ra te by Photometric methodOrdered By: Clarke Bertrand on 08-22-2021 ESR Photometric method (Bld) [Velocity] 37 mm/hr 0-19 [facility] Estimated glomerular filtrat ion rate (GFR) non- AmericanOrdered By: Clarke Bertrand on 08-22-2021 GFR/1.73 sq M.predicted among non-blacks MDRD (S/P/Bld) [Vol rate/Area] > 60 mL/Min [facility] Globulin Calc (S) [Mass/Vol] Ordered By: Clarke Bertrand on 08-22-2021 Globulin (S) [Mass/Vol] 3.3 g/dL [facility] Hematocrit Auto (Bld) [Volum e fraction]Ordered By: Clarke Bertrand on 08-22-2021 Hematocrit (Bld) [Volume fraction] 43.5 % 38.8-50.0 [facility] Laboratory - Hematology and Cell countsOrdered By: Clarke Bertrand on 08-22-2021 Nucleated RBC/100 WBC (Bld) [Ratio] 0.1 % 0-0.5 [facility] Lymphocytes Auto (Bld) [#/Vo l]Ordered By: Clarke Bertrand on 08-22-2021 Lymphocytes (Bld) [#/Vol] 1.1 10*3/uL 1.00-4.8 [facility] Lymphocytes/100 WBC Auto (Bl d)Ordered By: Clarke Bertrand on 08-22-2021 Lymphocytes/100 WBC (Bld) 33.4 % . [facility] MCH Auto (RBC) [Entitic mass ]Ordered By: Clarke Bertrand on 08-22-2021 MCH (RBC) [Entitic mass] 30.8 pg 27.5-35.2 [facility] MCHC Auto (RBC) [Mass/Vol]Or dered By: Clakre Bertrand on 08-22-2021 MCHC (RBC) [Mass/Vol] 33.1 g/dL 32.5-35.6 [facility] MCV Auto (RBC) [Entitic vol] Ordered By: Clarke Bertrand on 08-22-2021 MCV (RBC) [Entitic vol] 92.9 fL 83.5-101 [facility] Monocytes Auto (Bld) [#/Vol] Ordered By: Clarke Bertrand on 08-22-2021 Monocytes (Bld) [#/Vol] 0.4 10*3/uL 0.0-0.8 [facility] Monocytes/100 WBC Auto (Bld) Ordered By: Clarke Bertrand on 08-22-2021 Monocytes/100 WBC (Bld) 13.8 % . [facility] Neutrophils Auto (Bld) [#/Vo l]Ordered By: Clarke Bertrand on 08-22-2021 Neutrophils (Bld) [#/Vol] 1.5 10*3/uL 1.8-7.7 [facility] Neutrophils/100 WBC Auto (Bl d)Ordered By: Clarke Bertrand on 08-22-2021 Neutrophils/100 WBC (Bld) 47.6 % . [facility] No Panel InformationOrdered By: Clarke Bertrand on 08-22-2021 Estimated GFR () > 60 mL/Min [facility] Comment on above: GFR estimated refere nce range: According to KDOQI guidelines, <60 ml/min/1.73m2 is sufficient to diagnose a patient with chronic kidney disease. Pharmacy Creatinine Clearance (Chem N/A [facility] Platelet mean volume Auto (B ld) [Entitic vol]Ordered By: Clarke Bertrand on 08-22-2021 Platelet mean volume (Bld) [Entitic vol] 9.2 fL 6.6-10.1 [facility] Platelets Auto (Bld) [#/Vol] Ordered By: Clarke Bertrand on 08-22-2021 Platelets (Bld) [#/Vol] 147 10*3/uL 150-450 [facility] Protein [Mass/volume] in Ser um or PlasmaOrdered By: Clarke Bertrand on 08-22-2021 Protein [Mass/Vol] 7.0 g/dL 6.1-7.9 [facility] RBC Auto (Bld) [#/Vol]Ordere d By: Clarke Bertrand on 08-22-2021 RBC (Bld) [#/Vol] 4.68 10*6/uL 3.90-5.60 [facility] Serum or plasma alanine marie otransferase measurement without P-5'-P (enzymatic activiOrdered By: Clarke Bertrand on 08-22-2021 ALT No additional P-5'-P [Catalytic activity/Vol] 27 U/L 10-60 [facility] Serum or plasma albumin/glob ulin mass ratioOrdered By: Clarke Bertrand on 08-22-2021 Albumin/Globulin [Mass ratio] 1.1 {ratio} [facility] Serum or plasma alkaline samantha sphatase measurement (enzymatic activity/volume)Ordered By: Clarke Bertrand on 08-22-2021 ALP [Catalytic activity/Vol] 68 U/L 32-92 [facility] Serum or plasma aspartate am inotransferase measurement (enzymatic activity/volume)Ordered By: Clarke Bertrand on 08-22-2021 AST [Catalytic activity/Vol] 32 U/L 10-42 [facility] Serum or plasma calcium timo urement (mass/volume)Ordered By: Clarke Bertrand on 08-22-2021 Calcium [Mass/Vol] 10.0 mg/dL 8.2-10.2 [facility] Serum or plasma chloride alexey surement (moles/volume)Ordered By: Clarke Bertrand on 08-22-2021 Chloride [Moles/Vol] 102 mmol/L 95-114 [facility] Serum or plasma glucose timo urement (mass/volume)Ordered By: Clarke Bertrand on 08-22-2021 Glucose [Mass/Vol] 91 mg/dL 70-100 [facility] Comment on above: ADA recommended refe rence range Random Glucose Reference Range is dependent on time and content of last meal. Glucose of more than 200 mg/dL in a nonstressed, ambulatory subject supports the diagnosis of Diabetes Mellitus. Serum or plasma potassium me asurement (moles/volume)Ordered By: Clarke Bertrand on 08-22-2021 Potassium [Moles/Vol] 4.0 mmol/L 3.5-5.1 [facility] Serum or plasma sodium measu rement (moles/volume)Ordered By: Clarke Bertrand on 08-22-2021 Sodium [Moles/Vol] 137 mmol/L 136-146 [facility] Serum or plasma total biliru bin measurement (mass/volume)Ordered By: Clarke Bertrand on 08-22-2021 Bilirubin [Mass/Vol] 0.6 mg/dL 0.3-1.2 [facility] Serum or plasma total carbon dioxide measurement (moles/volume)Ordered By: Clarke Bertrand on 08-22-2021 CO2 [Moles/Vol] 23.0 mmol/L 22.0-30.0 [facility] Serum or plasma urea nitroge n measurement (mass/volume)Ordered By: Clarke Bertrand on 08-22-2021 Urea nitrogen [Mass/Vol] 12 mg/dL 9-23 [facility] [address] 07-22-2021 THOMAS Telephone (FVPRAD) SHIRLEY HART ([id number]) 1940 M Date Time Provider Department 07/22/21 [...] Encounter Status:Closed by CYNTHIA OLIVER on 07/22/21 [facility] 04-08-2021 CNPN Telephone (FVPRAD) SHIRLEY HART ([id number]) 1940 M Date Time Provider Department 04/08/21 CYNTHIA OLIVER During your visit today, we [...] Encounter Status:Closed by CYNTHIA OLIVER on 04/16/21 [facility] CBC AUTO DIFFon 11-06-2020 BASO # 0.0 103/ul Normal 0.0-0.1 [facility] Comment on above: Performed By: #### C BC #### [facility] [address] [place] [address] Dr. Maricarmen Barrett Basophils/100 WBC (Bld) 0.3 % Normal 0.2-2.0 [facility] Comment on above: Performed By: #### C BC #### [facility] [address] [address] [address] Maricarmen Barrett EO # 0.2 103/ul Normal 0.0-0.7 [facility] Comment on above: Performed By: #### C BC #### [facility] [address] [place] [address] Dr. Maricarmen Barrett Eosinophils/100 WBC (Bld) 4.3 % Normal 0.9-7.0 [facility] Comment on above: Performed By: #### C BC #### [facility] [address] [place] [address] Dr. Maricarmen Barrett Erythrocyte distribution width (RBC) [Ratio] 14.9 % Normal 11.0-15.0 [facility] Comment on above: Performed By: #### C BC #### [facility] [address] [place] [address] Dr. Maricarmen Barrett Hematocrit (Bld) [Volume fraction] 44.1 % Normal 42.0-54.0 [facility] Comment on above: Performed By: #### C BC #### [facility] [address] [place] [address] Dr. Maricarmen Barrett Hemoglobin (Bld) [Mass/Vol] 14.8 g/dL Normal 14.0-18.0 [facility] Comment on above: Performed By: #### C BC #### [facility] [address] [place] [address] Dr. Maricarmen Barrett IG # 0.00 10e3/ul Normal 0.00-0.03 [facility] Comment on above: Performed By: #### C BC #### [facility] [address] [place] [address] Dr. Maricarmen Barrett IG % 0.0 % Normal 0.0-0.5 [facility] Comment on above: Performed By: #### C BC #### [facility] [address] [place] [address] Dr. Maricarmen Barrett LYMPH # 1.5 103/ul Normal 1.2-3.8 [facility] Comment on above: Performed By: #### C BC #### [facility] [address] [place] [address] Dr. Maricarmen Barrett Lymphocytes/100 WBC (Bld) 37.2 % Normal 20.5-60.0 [facility] Comment on above: Performed By: #### C BC #### [facility] [address] [place] [address] Dr. Maricarmen Barrett MANUAL DIFF REQ NO Normal [facility] Comment on above: Performed By: #### C BC #### [facility] [address] [place] [address] Dr. Maricarmen Barrett MCH (RBC) [Entitic mass] 30.9 pg Normal 25.9-34.0 [facility] Comment on above: Performed By: #### C BC #### [facility] [address] [place] [address] Dr. Maricarmen Barrett MCHC (RBC) [Mass/Vol] 33.6 g/dL Normal 29.9-35.2 [facility] Comment on above: Performed By: #### C BC #### [facility] [address] [place] [address] Dr. Maricarmen Barrett MCV (RBC) [Entitic vol] 92.1 fL Normal 80.0-94.0 [facility] Comment on above: Performed By: #### C BC #### [facility] [address] [place] [address] Dr. Maricarmen Barrett MONO # 0.5 103/ul Normal 0.3-0.8 [facility] Comment on above: Performed By: #### C BC #### [facility] [address] [place] [address] Dr. Maricarmen Barrett Monocytes/100 WBC (Bld) 13.5 % Critically high 1.7-12. 0 [facility] Comment on above: Performed By: #### C BC #### [facility] [address] [place] [address] Dr. Maricarmen Barrett NEUT # 1.8 103/ul Normal 1.4-6.5 [facility] Comment on above: Performed By: #### C BC #### [facility] [address] [place] [address] Dr. Maricarmen Barrett Neutrophils/100 WBC (Bld) 44.7 % Normal 43.0-75.0 [facility] Comment on above: Performed By: #### C BC #### [facility] [address] [place] [address] Dr. Maricarmen Barrett Platelet mean volume (Bld) [Entitic vol] 10.7 fL Normal 9.5-13.5 [facility] Comment on above: Performed By: #### C BC #### [facility] [address] [address] [address] Maricarmen Barrett PLT 141 103/ul Critically low 150-450 [facility] Comment on above: Performed By: #### C BC #### [facility] [address] [address] [address] Maricarmen Barrett RBC 4.79 106/ul Normal 4.70-6.10 [facility] Comment on above: Performed By: #### C BC #### [facility] [address] [address] [address] Maricarmen Barrett WBC 3.9 103/ul Critically low 4.0-11.0 [facility] Comment on above: Performed By: #### C BC #### [facility] [address] [place] [address] Dr. Maricarmen Barrett LIPID PROFILEon 11-06-2020 CHOL-HDL RATIO NORM SEE BELOW Normal [facility] Comment on above: Result Comment: 3.3 - 4.4 LOW RISK 4.4 - 7.1 AVERAGE RISK 7.1 - 11.0 MODERATE RISK >11.0 HIGH RISK Performed By: #### B MP, LIPID #### [facility] [address] [place] [address] Dr. Maricarmen Barrett Cholesterol [Mass/Vol] 207 mg/dL Critically high <=200 [facility] Comment on above: Performed By: #### B MP, LIPID #### [facility] [address] [place] [address] Dr. Maricarmen Barrett Cholesterol in HDL [Mass/Vol] 61 mg/dL Normal [facility] Comment on above: Performed By: #### B MP, LIPID #### [facility] [address] [place] [address] Dr. Maricarmen Barrett Cholesterol in LDL [Mass/Vol] 132.2 mg/dL Normal [facility] Comment on above: Performed By: #### B MP, LIPID #### [facility] [address] [place] [address] Dr. Maricarmen Barrett Cholesterol.total/Choles terol in HDL [Mass ratio] 3.4 {ratio} Normal [facility] Comment on above: Performed By: #### B MP, LIPID #### [facility] [address] [address] [address] Maricarmen Barrett HDL NORMAL > or = 60 mg/dl - LO W CARDIOVASCULAR RISK <40 mg/dl - HIGH CARDIOVASCULAR RISK Normal [facility] Comment on above: Performed By: #### B MP, LIPID #### [facility] [address] [place] [address] Dr. Maricarmen Barrett LDL CALC NORMAL SEE BELOW Normal [facility] Comment on above: Result Comment: <100 mg/dl OPTIMAL 100 - 129 mg/dl NEAR OR ABOVE OPTIMAL 130 - 159 mg/dl BORDERLINE HIGH 160 - 189 mg/dl HIGH >190 mg/dl VERY HIGH Performed By: #### B MP, LIPID #### [facility] [address] [place] [address] Dr. Maricarmen Barrett Triglyceride [Mass/Vol] 69 mg/dL Normal <=150 [facility] Comment on above: Performed By: #### B MP, LIPID #### [facility] [address] [address] [address] Maricarmen Barrett VLDL CALC 13.8 mg/dL Normal [facility] Comment on above: Performed By: #### B MP, LIPID #### [facility] [address] [place] [address] Dr. Maricarmen Barrett PROF CHEM 8 (BAS METB)on Anion gap [Moles/Vol] 10.5 mmol/L Normal [facility] Comment on above: Performed By: #### B MP, LIPID #### [facility] [address] [place] [address] Dr. Maricarmen Barrett Calcium [Mass/Vol] 9.7 mg/dL Normal 8.4-10.2 [facility] Comment on above: Performed By: #### B MP, LIPID #### [facility] [address] [place] [address] Dr. Maricarmen Barrett Chloride [Moles/Vol] 103 mmol/L Normal 98-107 [facility] Comment on above: Performed By: #### B MP, LIPID #### [facility] [address] [place] [address] Dr. Maricarmen Barrett CO2 [Moles/Vol] 27.3 mmol/L Normal 22.0-30.0 [facility] Comment on above: Performed By: #### B MP, LIPID #### [facility] [address] [place] [address] Dr. Maricarmen Barrett Creatinine [Mass/Vol] 0.80 mg/dL Normal 0.66-1.25 [facility] Comment on above: Performed By: #### B MP, LIPID #### [facility] [address] [place] [address] Dr. Maricarmen Barrett EGFR-AF CITIZEN [place] >60 Normal >=60 [facility] Comment on above: Performed By: #### B MP, LIPID #### [facility] [address] [place] [address] Dr. Maricarmen Barrett EGFR-NON AF CITIZEN OF [place] >60 Normal >=60 [facility] Comment on above: Performed By: #### B MP, LIPID #### [facility] [address] [place] [address] Dr. Maricarmen Barrett Glucose [Mass/Vol] 97 mg/dL Normal 74-106 [facility] Comment on above: Performed By: #### B MP, LIPID #### [facility] [address] [place] [address] Dr. Maricarmen Barrett Potassium [Moles/Vol] 3.8 mmol/L Normal 3.4-5.0 [facility] Comment on above: Performed By: #### B MP, LIPID #### [facility] [address] [place] [address] Dr. Maricarmen Barrett Sodium [Moles/Vol] 137 mmol/L Normal 137-145 [facility] Comment on above: Performed By: #### B MP, LIPID #### [facility] [address] [place] [address] Dr. Maricarmen Barrett Urea nitrogen [Mass/Vol] 15.0 mg/dL Normal 9.0-20.0 [facility] Comment on above: Performed By: #### B MP, LIPID #### [facility] [address] [place] [address] Dr. Maricarmen Barrett Urea nitrogen/Creatinine [Mass ratio] 18.8 mg/mg Normal [facility] Comment on above: Performed By: #### B MP, LIPID #### [facility] [address] [address] [address] Maricarmen Barrett Audiology Office/Clinic Note on 05-22-2020 Audiology Office/Clinic Note Patient seen for hearing [...] by Omaira Leblanc 05/22/20 08:53 EDT Normal [facility] Vital Signs Date Time Vital Sign Value Performing Clinician Facility 08-15-2024 13:31-0400 Body height 193.04 cm [facility] Work Phone: [facility] 08-15-2024 13:31-0400 Body mass index (BMI) [Ratio] 22.7 kg/m2 [facility] Work Phone: [facility] 08-15-2024 13:31-040 Body weight 84.82 kg [facility] Work Phone: [facility] 08-15-2024 13:31-0400 Diastolic blood pressure 76 mm[Hg] [employer] Work Phone: [facility] 08-15-2024 13:31-0400 Heart rate 93 /min [facility] Work Phone: [facility] 08-15-2024 13:31-0400 Respiratory rate 12 /min Duarte Ball DO Work Phone: [facility] 08-15-2024 13:31-0400 Systolic blood pressure 149 mm[Hg] Duarte Ball DO Work Phone: [facility] 07-13-2024 13:59-0400 Body height 193.04 cm Duarte Ball DO Work Phone: [facility] 07-13-2024 13:59-0400 Body mass index (BMI) [Ratio] 23.1 kg/m2 Duarte Ball DO Work Phone: [facility] 07-13-2024 13:59-0400 Body weight 86.18 kg Duarte Ball DO Work Phone: [facility] 07-13-2024 13:59-0400 Diastolic blood pressure 75 mm[Hg] Duarte Ball DO Work Phone: [facility] 07-13-2024 13:59-0400 Heart rate 98 /min Duarte Ball DO Work Phone: [facility] 07-13-2024 13:59-0400 Respiratory rate 12 /min Duarte Ball DO Work Phone: [facility] 07-13-2024 13:59-0400 SaO2% (BldA) [Mass fraction] 97 % Duarte Ball DO Work Phone: [facility] 07-13-2024 13:59-0400 Systolic blood pressure 131 mm[Hg] Duarte Ball DO Work Phone: [facility] 06-06-2024 14:40-0400 Diastolic blood pressure 76 mm[Hg] Duarte Ball DO Work Phone: [facility] 06-06-2024 14:40-0400 Heart rate 85 /min Duarte Ball DO Work Phone: [facility] 06-06-2024 14:40-0400 Respiratory rate 16 /min Duarte Ball DO Work Phone: [facility] 06-06-2024 14:40-0400 SaO2% (BldA) [Mass fraction] 95 % Duarte Ball DO Work Phone: [facility] 06-06-2024 14:40-0400 Systolic blood pressure 117 mm[Hg] Duarte Ball DO Work Phone: [facility] 06-06-2024 12:48-0400 Body height 193.04 cm Duarte Ball DO Work Phone: [facility] 06-06-2024 12:48-0400 Body weight 83.91 kg Duarte Ball DO Work Phone: [facility] 05-23-2024 08:38-0400 Body height 187.96 cm Duarte Ball DO Work Phone: [facility] 05-23-2024 08:38-0400 Body mass index (BMI) [Ratio] 24.4 kg/m2 Duarte Ball DO Work Phone: [facility] 05-23-2024 08:38-0400 Body weight 86.35 kg Duarte Ball DO Work Phone: [facility] 05-23-2024 08:38-0400 Diastolic blood pressure 85 mm[Hg] Duarte Ball DO Work Phone: [facility] 05-23-2024 08:38-0400 Heart rate 114 /min Duarte Ball DO Work Phone: [facility] 05-23-2024 08:38-0400 Respiratory rate 12 /min Duarte Ball DO Work Phone: [facility] 05-23-2024 08:38-0400 Systolic blood pressure 143 mm[Hg] Duarte Ball DO Work Phone: [facility] 04-20-2024 12:04-0400 Body height 187.96 cm Duarte Ball DO Work Phone: [facility] 04-20-2024 12:04-0400 Body mass index (BMI) [Ratio] 25.2 kg/m2 Duarte Ball DO Work Phone: [facility] 04-20-2024 12:04-0400 Body temperature 97.3 [degF] Duarte Ball DO Work Phone: [facility] 04-20-2024 12:04-0400 Body weight 88.96 kg Duarte Ball DO Work Phone: [facility] 04-20-2024 12:04-0400 Diastolic blood pressure 88 mm[Hg] Duarte Ball DO Work Phone: [facility] 04-20-2024 12:04-0400 Heart rate 108 /min Duarte Ball DO Work Phone: [facility] 04-20-2024 12:04-0400 Respiratory rate 20 /min Duarte Ball DO Work Phone: [facility] 04-20-2024 12:04-0400 Systolic blood pressure 140 mm[Hg] Duarte Ball DO Work Phone: [facility] 11-18-2023 13:20-0400 Body height 187.96 cm MD Clarke Bertrand Work Phone: [facility] 11-18-2023 13:20-0400 Body mass index (BMI) [Ratio] 25.7 kg/m2 MD Clarke Bertrand Work Phone: [facility] 11-18-2023 13:20-0400 Body weight 90.71 kg MD Clarke Bertrand Work Phone: [facility] 11-18-2023 13:20-0400 Diastolic blood pressure 77 mm[Hg] MD Clarke Bertrand Work Phone: [facility] 11-18-2023 13:20-0400 Heart rate 87 /min MD Clarke Bertrand Work Phone: [facility] 11-18-2023 13:20-0400 Systolic blood pressure 130 mm[Hg] MD Clarke Bertrand Work Phone: [facility] 11-12-2023 08:37-0400 Body height 187.96 cm MD Clarke Bertrand Work Phone: [facility] 11-12-2023 08:37-0400 Body mass index (BMI) [Ratio] 25.4 kg/m2 MD Clarke Bertrand Work Phone: [facility] 11-12-2023 08:37-0400 Body weight 90.03 kg MD Clarke Bertrand Work Phone: [facility] 11-12-2023 08:37-0400 Diastolic blood pressure 68 mm[Hg] MD Clarke Bertrand Work Phone: [facility] 11-12-2023 08:37-0400 Heart rate 54 /min MD Clarke Bertrand Work Phone: [facility] 11-12-2023 08:37-0400 Respiratory rate 12 /min MD Clarke Bertrand Work Phone: [facility] 11-12-2023 08:37-0400 Systolic blood pressure 116 mm[Hg] MD Clarke Bertrand Work Phone: [facility] 05-12-2023 08:35-0400 Body height 187.96 cm DO Duarte Ball Work Phone: [facility] 05-12-2023 08:35-0400 Body mass index (BMI) [Ratio] 26.1 kg/m2 DO Duarte Ball Work Phone: [facility] 05-12-2023 08:35-0400 Body weight 92.22 kg DO Duarte Ball Work Phone: [facility] 05-12-2023 08:35-0400 Diastolic blood pressure 80 mm[Hg] DO Duarte Ball Work Phone: [facility] 05-12-2023 08:35-0400 Heart rate 88 /min DO Duarte Ball Work Phone: [facility] 05-12-2023 08:35-0400 Respiratory rate 12 /min DO Duarte Ball Work Phone: [facility] 05-12-2023 08:35-0400 Systolic blood pressure 133 mm[Hg] DO Duarte Ball Work Phone: [facility] 11-24-2022 08:38-0400 Body height 190.5 cm Cynthia Oliver MD Work Phone: [facility] 11-24-2022 08:38-0400 Body weight 89.36 kg Cynthia Oliver MD Work Phone: [facility] 11-24-2022 08:38-0400 Diastolic blood pressure 86 mm[Hg] Cynthia Oliver MD Work Phone: [facility] 11-24-2022 08:38-0400 Heart rate 86 /min Cynthia Oliver MD Work Phone: [facility] 11-24-2022 08:38-0400 Systolic blood pressure 120 mm[Hg] Cynthia Oliver MD Work Phone: [facility] 11-19-2022 15:00-0400 Body height 187.96 cm Vickey Moeller Other [facility] Other 11-19-2022 15:00-0400 Body mass index (BMI) [Ratio] 25.24 kg/m2 Vickey Moeller Other [facility] Other 11-19-2022 15:00-0400 Body weight 89.18 kg Vickey Moeller Other [facility] Other 11-19-2022 15:00-0400 Diastolic blood pressure 88 mm[Hg] Vickey Moeller Other [facility] Other 11-19-2022 15:00-0400 Systolic blood pressure 147 mm[Hg] Vickey Moeller Other [facility] Other 11-10-2022 09:00-0400 Body height 187.96 cm Duarte Ball Other [facility] Other 11-10-2022 09:00-0400 Body mass index (BMI) [Ratio] 25.24 kg/m2 Duarte Ball Other [facility] Other 11-10-2022 09:00-0400 Body weight 89.18 kg Duarte Ball Other [facility] Other 11-10-2022 09:00-0400 Diastolic blood pressure 96 mm[Hg] Duarte Ball Other [facility] Other 11-10-2022 09:00-0400 Respiratory rate 12 /min Duarte Ball Other [facility] Other 11-10-2022 09:00-0400 Systolic blood pressure 153 mm[Hg] Duarte Ball Other [facility] Other 05-07-2022 11:00-0400 Body height 187.96 cm Duarte Ball Other [facility] Other 05-07-2022 11:00-0400 Body mass index (BMI) [Ratio] 25.52 kg/m2 Duarte Ball Other [facility] Other 05-07-2022 11:00-0400 Body weight 90.18 kg Duarte Ball Other [facility] Other 05-07-2022 11:00-0400 Diastolic blood pressure 91 mm[Hg] Duarte Ball Other [facility] Other 05-07-2022 11:00-0400 Respiratory rate 12 /min Duarte Ball Other [facility] Other 05-07-2022 11:00-0400 Systolic blood pressure 150 mm[Hg] Duarte Ball Other [facility] Other 09-17-2021 13:18-0400 Diastolic blood pressure 95 mm[Hg] DO Duarte Ball Work Phone: [facility] 09-17-2021 13:18-0400 Heart rate 70 /min DO Duarte Ball Work Phone: [facility] 09-17-2021 13:18-0400 Respiratory rate 16 /min DO Duarte Ball Work Phone: [facility] 09-17-2021 13:18-0400 SaO2% (BldA) [Mass fraction] 97 % DO Duarte Ball Work Phone: [facility] 09-17-2021 13:18-0400 Systolic blood pressure 144 mm[Hg] DO Duarte Ball Work Phone: [facility] 09-17-2021 11:25-0400 Body height 185.42 cm DO Duarte Ball Work Phone: [facility] 09-17-2021 11:25-0400 Body temperature 97.9 [degF] DO Duarte Ball Work Phone: [facility] 09-17-2021 11:25-0400 Body weight 86.18 kg DO Duarte Ball Work Phone: [facility] 09-06-2021 08:34-0400 Body weight 87.59 kg Cynthia Oliver MD Work Phone: [facility] 09-06-2021 08:34-0400 Diastolic blood pressure 88 mm[Hg] Cynthia Oliver MD Work Phone: [facility] 09-06-2021 08:34-0400 Heart rate 98 /min Cynthia Oliver MD Work Phone: [facility] 09-06-2021 08:34-0400 Systolic blood pressure 145 mm[Hg] Cynthia Oliver MD Work Phone: [facility] Encounters Encounter Date Encounter Type Care Provider Facility Start: 08-18-2024 End: 08-18-2024 ambulatory Duarte Ball DO Work Phone: [facility] Work Phone: Start: 08-18-2024 End: 08-18-2024 Patient encounter procedure Clarke Bertrand MD -[facility] [address] Work Phone: Start: 08-15-2024 End: 08-15-2024 ambulatory Duarte Ball DO Work Phone: [facility] Work Phone: Start: 08-15-2024 End: 08-15-2024 Patient encounter procedure Duarte Ball DO -[facility] Work Phone: Start: 08-09-2024 Non-patient / Non-visit Duarte Ball DO -[facility] Work Phone: Start: 07-13-2024 End: 07-13-2024 ambulatory Duarte Ball DO Work Phone: [facility] Work Phone: Start: 07-13-2024 End: 07-13-2024 Patient encounter procedure Duarte Ball DO Work Phone: [facility] Work Phone: Start: 07-07-2024 Non-patient / Non-visit Duarte Ball DO Work Phone: [facility] Work Phone: Start: 07-07-2024 Non-patient / Non-visit Duarte Ball DO Work Phone: [facility] Work Phone: Start: 07-06-2024 Non-patient / Non-visit Duarte Ball DO Work Phone: [facility] Work Phone: Start: 07-05-2024 Non-patient / Non-visit Duarte Ball DO Work Phone: [facility] Work Phone: Start: 07-04-2024 Non-patient / Non-visit Duarte Ball DO Work Phone: [facility] Work Phone: Start: 07-03-2024 End: 07-03-2024 ambulatory Duarte Ball DO Work Phone: [facility] Work Phone: Start: 07-03-2024 End: 07-03-2024 Departed Referred Duarte Ball DO Work Phone: [facility] Start: 07-03-2024 Non-patient / Non-visit Duarte Ball DO Work Phone: [facility] Work Phone: Start: 06-06-2024 Non-patient / Non-visit Duarte Ball DO Work Phone: [facility] Work Phone: Start: 06-06-2024 End: 06-06-2024 Admission to same day surgery center Duarte Ball DO Work Phone: [facility] Work Phone: Start: 06-06-2024 End: 06-06-2024 ambulatory Duarte Ball DO Work Phone: [facility] Work Phone: Start: 05-30-2024 Non-patient / Non-visit Duarte Ball DO Work Phone: [facility] Work Phone: Start: 05-23-2024 End: 05-23-2024 ambulatory Duarte Ball DO Work Phone: [facility] Work Phone: Start: 05-23-2024 End: 05-23-2024 Patient encounter procedure Duarte Ball DO Work Phone: [facility] Work Phone: Start: 05-11-2024 End: 05-11-2024 Patient encounter procedure Duarte Ball DO Work Phone: [facility] [address] Work Phone: Start: 05-11-2024 End: 05-11-2024 ambulatory Duarte Ball DO Work Phone: [facility] Work Phone: Start: 04-20-2024 End: 04-20-2024 ambulatory Duarte Ball DO Work Phone: [facility] Work Phone: Start: 04-20-2024 End: 04-20-2024 Patient encounter procedure Duarte Ball DO Work Phone: [facility] Work Phone: Start: 02-24-2024 End: 02-24-2024 Patient encounter procedure Duarte Ball DO Work Phone: [facility] [address] Work Phone: Start: 02-24-2024 End: 02-24-2024 ambulatory Duarte Ball DO Work Phone: [facility] Work Phone: Start: 12-30-2023 End: 12-30-2023 Patient encounter procedure Duarte Ball DO Work Phone: [facility] [address] Work Phone: Start: 12-30-2023 End: 12-30-2023 ambulatory Duarte Ball DO Work Phone: [facility] Work Phone: Start: 11-18-2023 End: 11-18-2023 ambulatory MD Clarke Bertrand Work Phone: [facility] Work Phone: Start: 11-18-2023 End: 11-18-2023 Patient encounter procedure MD Clarke Bertrand Work Phone: [facility] Work Phone: Start: 11-12-2023 End: 11-12-2023 ambulatory MD Clarke Bertrand Work Phone: [facility] Work Phone: Start: 11-12-2023 End: 11-12-2023 Patient encounter procedure MD Clarke Bertrand Work Phone: [facility] Work Phone: Start: 11-09-2023 Patient encounter procedure MD Clarke Bertrand Work Phone: [facility] Start: 09-09-2023 End: 09-09-2023 Patient encounter procedure DO Evangelista Bedocs Work Phone: [facility] [address] Work Phone: Start: 09-09-2023 End: 09-09-2023 ambulatory Clarke Bertrand [facility] Work Phone: Start: 07-15-2023 End: 07-15-2023 Patient encounter procedure DO Duarte Ball Work Phone: [facility] [address] Work Phone: Start: 07-15-2023 End: 07-15-2023 ambulatory DO Duarte Ball Work Phone: [facility] Work Phone: Start: 06-30-2023 End: 06-30-2023 ambulatory DO Duarte Ball Work Phone: [facility] Work Phone: Start: 06-30-2023 End: 06-30-2023 Departed Referred DO Duarte Ball Work Phone: [facility] [address] [place] Work Phone: Start: 05-21-2023 End: 05-21-2023 ambulatory DO Duarte Ball Work Phone: [facility] Work Phone: Start: 05-21-2023 End: 05-21-2023 Patient encounter procedure DO Duarte Ball Work Phone: [facility] Work Phone: Start: 05-12-2023 End: 05-12-2023 ambulatory DO Duarte Ball Work Phone: [facility] Work Phone: Start: 05-12-2023 End: 05-12-2023 Patient encounter procedure DO Duarte Ball Work Phone: [facility] Work Phone: Start: 03-25-2023 End: 03-25-2023 ambulatory DO Duarte Ball Work Phone: [facility] Work Phone: Start: 03-25-2023 End: 03-25-2023 Patient encounter procedure DO Duarte Ball Work Phone: [facility] [address] Work Phone: Start: 03-03-2023 End: 03-03-2023 ambulatory Vickey Moeller Other [facility] Other Start: 03-03-2023 Telephone encounter Vickey MCKEON [facility] Start: 01-28-2023 End: 01-28-2023 ambulatory DO Duarte Ball Work Phone: [facility] Work Phone: Start: 01-28-2023 End: 01-28-2023 Patient encounter procedure DO Duarte Ball Work Phone: [facility] [address] Work Phone: Start: 12-03-2022 End: 12-03-2022 ambulatory DO Duarte Ball Work Phone: [facility] Work Phone: Start: 12-03-2022 End: 12-03-2022 Patient encounter procedure DO Duarte Ball Work Phone: [facility] [address] Work Phone: Start: 11-24-2022 End: 11-24-2022 ambulatory CYNTHIA OLIVER Facility:[facility] Start: 11-24-2022 End: 11-24-2022 Patient encounter procedure Cynthia Oliver MD Work Phone: Cardiology Comment on above: History of loop jorge rder (Primary Dx) Start: 11-19-2022 End: 11-19-2022 ambulatory Vickey Moeller Other [facility] Other Start: 11-19-2022 Patient encounter procedure Vickey Moeller [facility] Start: 11-10-2022 End: 11-10-2022 ambulatory Duarte Herrmann Other [facility] Other Start: 11-10-2022 Patient encounter procedure Duarte Herrmann [facility] Start: 11-04-2022 End: 11-04-2022 ambulatory Duarte Herrmann Other [facility] Other Start: 11-04-2022 Telephone encounter Duarte Herrmann [facility] Start: 10-08-2022 End: 10-08-2022 ambulatory DO Duarte Ball Work Phone: [facility] Work Phone: Start: 10-08-2022 End: 10-08-2022 Patient encounter procedure DO Duarte Ball Work Phone: [facility] [address] Work Phone: Start: 06-18-2022 End: 06-18-2022 ambulatory DO Duarte Ball Work Phone: [facility] Work Phone: Start: 06-18-2022 End: 06-18-2022 Patient encounter procedure DO Duarte Ball Work Phone: [facility] [address] Work Phone: Start: 06-10-2022 End: 06-10-2022 ambulatory Duarte Herrmann Other [facility] Other Start: 06-10-2022 Telephone encounter [facility] Start: 05-07-2022 End: 05-07-2022 ambulatory Duarte Herrmann Other [facility] Other Start: 05-07-2022 Office outpatient visit 25 minutes Duarte Herrmann [facility] Start: 04-23-2022 End: 04-23-2022 Patient encounter procedure DO Duarte Herrmann Work Phone: [facility] [address] Work Phone: Start: 02-28-2022 End: 02-28-2022 ambulatory Duarte Herrmann Other [facility] Other Start: 02-28-2022 Telephone encounter Duarte MCKEON [facility] Start: 02-05-2022 Adult health examination Duarte Herrmann Other [facility] Other Start: 01-08-2022 End: 01-08-2022 ambulatory Vickey Moeller Other [facility] Other Start: 01-08-2022 Telephone encounter Vickey Boyd [facility] Start: 12-10-2021 End: 12-10-2021 ambulatory DO Duarte Herrmann Work Phone: [facility] Work Phone: Start: 12-10-2021 End: 12-10-2021 Patient encounter procedure DO Duarte Herrmann Work Phone: [facility] [address] Start: 10-17-2021 End: 10-17-2021 Patient encounter procedure DO Duarte Herrmann Work Phone: [facility] [address] Start: 09-17-2021 End: 09-17-2021 Admission to same day surgery center DO Duarte Herrmann Work Phone: [facility] Start: 09-13-2021 End: 09-13-2021 Patient encounter procedure DO Duarte Herrmann Work Phone: [facility]Pre-Surgical [facility] Start: 09-06-2021 End: 09-06-2021 Patient encounter procedure Cynthia Oliver MD Work Phone: Cardiology Comment on above: Status post placemen t of implantable loop recorder (Primary Dx) Start: 08-22-2021 End: 08-22-2021 Patient encounter procedure DO Duarte Herrmann Work Phone: [facility] [address] Start: 07-22-2021 Telephone encounter Cynthia Oliver MD Work Phone: [facility] Adult Comment on above: Results Start: 05-15-2021 Telephone encounter Cynthia Oliver MD Work Phone: Cardiology Comment on above: Appointment Start: 11-06-2020 End: 11-07-[address] DUARTE HERRMANN Facility: Start: 01-28-2018 End: 01-29-2018 Patient encounter procedure DEFAULT PHYSICIAN Facility:[facility] [place] Procedures Date Procedure Procedure Detail Performing Clinician Start: 07-03-2024 Anaerobe Identification Only Duarte Killian ll DO Work Phone: Start: 07-03-2024 Urine culture Duarte Herrmann DO Work Phone: Start: 06-06-2024 Esophagogastroduodenoscopy Duarte Montez DO Work Phone: Start: 06-30-2023 Aerobic microbial culture DO Duarte Killian ll Work Phone: Start: 05-21-2023 Plain X-ray of right shoulder DO Karely Herrmann Work Phone: Start: 09-17-2021 Esophagogastroduodenoscopy DO Duarte Acosta all Work Phone: Start: 11-06-[address] DUARTE HERRMANN Comment on above: Performed By: #### [facility] #### [facility] [address] [address] [address] Maricarmen Barrett Start: 02-11-2018 Screening for malignant neoplasm of prostate Duarte Herrmann Other Start: 02-17-2017 General examination of patient Duarte Herrmann Other Depression screening Karely Herrmann Other H/O: surgery History of loop recorder Cynthia Oliver MD Work Phone: Screening for malign ant neoplasm of prostate Duarte Herrmann Other Plan of Treatment Date Care Activity Detail Author Start: 07-03-2024 Urine culture [facility] Start: 07-03-2024 Bacteria identified in Urine by Culture Urine Culture [facility] Start: 06-06-2024 [facility] Start: 06-30-2023 Superficial Wound Culture Superficial Wound Culture [facility] Start: 05-21-2023 Plain X-ray of right shoulder XR shoulder RT min 2V* [facility] Start: 05-21-2023 XR Shoulder - right Views [facility] Start: 10-27-2022 Covid-19 Vaccine ( season) Covid-19 Vaccine () [facility] Start: 02-09-2022 Advance Directive Discussion Advance Directive Discussion [facility] Start: 02-09-2022 Depression Assessment Depression Assessment [facility] Start: 2021 Influenza vaccination [facility] Start: 09-26-2021 COVID-19 VACCINE (5 - Booster for Pfizer series) COVID-19 VACCINE (5 - Booster for Pfizer series) [facility] Start: 09-17-2021 [facility] Start: 09-17-2021 Esophagogastroduodenoscopy DH EGD (Not Applicable) [facility] Start: 09-17-2021 End: 09-17-2021 Admission to same day surgery center Departed Surgical Day Care [facility] Start: 02-15-2021 COVID-19 VACCINE (4 - Booster for Pfizer series) COVID-19 VACCINE (4 - Booster for Pfizer series) [facility] Start: 02-09-2021 ADVANCE DIRECTIVE DISCUSSION ADVANCE DIRECTIVE DISCUSSION [facility] Start: 08-02-2016 DIABETES SCREEN DIABETES SCREEN [facility] Start: 08-02-2016 Diabetes Screening Diabetes Screening [facility] Start: 2006 PNEUMOVAX AGE 65 AND OVER WITH 5YR LOOKBACK (#1) PNEUMOVAX AGE 65 AND OVER WITH 5YR LOOKBACK (#1) [facility] Start: 10-11-1991 SHINGRIX VACCINE (1 of 2) SHINGRIX VACCINE (1 of 2) [facility] Start: 1960 SHINGRIX VACCINE (1 of 2) SHINGRIX VACCINE (1 of 2) [facility] Start: 1960 Urine microalbumin profile [facility] Start: 1953 Adult depression screening assessment DEPRESSION SCREENING [facility] Start: 10-11-1947 Pneumococcal Vaccine: 65+ (1 - PCV) Pneumococcal Vaccine: 65+ (1 - PCV) [facility] Start: 10-11-1947 PNEUMOCOCCAL: 65+ (1 - PCV) PNEUMOCOCCAL: 65+ (1 - PCV) [facility] CT Chest W contrast IV [facility] CT Neck W contrast IV [facility] EKG 12 channel panel [facility] Patient Education Duron's esop hagus Hiatal hernia - Discharge instructions [facility] Work Phone: Thyroid stimulating immunoglobulins actual/normal in Serum [facility] US Heart Transthoracic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
--- NOTE | 2024-08-19 07:44 | CT_ITS ---
The [address] [address] Patient Name: SHIRLEY NIETO MRN: [id number] date: 1940 Sex: M Assigned Patient Location: CT Current Patient Location: CT Accession/Order Number: [id number] Exam Date: 08/19/2024 08:40 Report Date: 08/19/2024 09:03 At the request of: HENOK ROGERS DO Procedure: CT soft tissue neck w con CT SOFT TISSUE NECK WITH CONTRAST COMPARISON: CT chest 08/09/2024 CLINICAL DATA: Supraclavicular lumps. Spiral images were obtained through the neck following 100 mL of Omnipaque 300. Markers were placed at the site of palpable concern. This CT exam was performed using one or more following dose reduction techniques: Automated exposure control, adjustment of the mA and/or kV according to patient size, or use of iterative reconstruction technique. No thyroid nodularity is identified. The submandibular and parotid glands appear symmetric. There is no significant enlargement of the adenoids or tonsils. The epiglottis and vocal cords are within normal limits. The airway is patent throughout its course, with normal appearance the mucosal surfaces. No prevertebral soft tissue swelling is seen. There are multiple asymmetric enlarged left cervical lymph nodes with short axis dimension up to 2.4 cm. These extend from supraclavicular region through the posterior triangle up to the jugulodigastric region. There is hazy density within the surrounding fat. There is a 16 mm nodular area with hypoechoic center and enhancing rim in the jugulodigastric region deep to the sternocleidomastoid and another more superficial area at the posterior lateral neck measuring 14 mm. These are probably necrotic lymph nodes. Abscess and necrotic mass are also in the differential though thought less likely. There is no significant lymph node enlargement on the right. Atherosclerotic plaque is seen at the carotid arteries, greater on the right. There is reversal of the normal cervical curvature with moderate degenerative changes, greatest at C4-5 through C6-7. There is opacification of the left maxillary sinus. This also asymmetric mucosal congestion in the nasal passage on that side. The upper imaged lungs show fibrocalcific scarring and mild obstructive lung disease. The aorta within the [id number] is ectatic. CT/CT soft tissue neck w con IMPRESSION: ASYMMETRIC LEFT CERVICAL LYMPHADENOPATHY. THIS IS CONCERNING FOR NEOPLASTIC PROCESS. FOLLOW-UP WILL BE NEEDED. THE LYMPH NODES WOULD BE AMENABLE TO PERCUTANEOUS ULTRASOUND-GUIDED BIOPSY. LEFT MAXILLARY SINUS DISEASE. Impression dictated by: Mirta Aleman M.D. 08/19/2024 9:03 AM Dictation Location: [place] [address] Electronically authenticated by: [id number] Y Date: 08/19/2024 09:03
== END 2024-08-19 07:40 | disposition home or self-care (01) ==
LOC: CT 07:39
PROVIDERS: PCP Internal Medicine; Visit Provider Internal Medicine
DX: R59.0 Localized enlarged lymph nodes (principal)
CPT/HCPCS: 70491; Q9967

== ENCOUNTER 2024-10-14 13:43 | Outpatient (OUT) | payer MEDICARE, OTHER, SELFPAY ==
--- OUTSIDE RECORDS SUMMARY | 2024-10-14 13:48 | XMS_ITS | Clinical Summary ---
Author Organization [facility] Address [address] [place] [address] Care Team Providers Care Pharmacy Picking Technician Name Role Phone Duarte Herrmann Primary Care Provider [phone] Allergies No known active allergies Medications Adalimumab [...] Active Active Problems No known active problems Encounters Date Type Department Care Team Description 09/23/2024 Lab Requisition [facility] [address] [place] [address] Wilder Darby MD Person encountering health services to consult on behalf of another person 09/12/2024 Lab Requisition [facility] [address] [place] [address] Wilder Darby MD Person encountering health services to consult on behalf of another person from Last 3 Months Immunizations Immunization Administration Dates Next Due COVID-19 original vaccine, a ge 12+ yr, monovalent (Strikeface - PURPLE TOP) 04/12/2020,03/22/2020 influenza (aIIV4) vaccine, [...] is lower risk 4 11/24/2022 Data from: https://www.neighborhoodatlas.medicine.[facility].edu/. Last address used for calculation [address] [place] [address] [address] 11/24/2022 Sex and Gender Information [...] Pneumococcal Vaccine: 50+ (3 of 3 - PCV20 or PCV21) 04/18/2015 02/21/2015, 01/12/2002 Diabetes Screening 08/02/2016 08/02/2013 RSV Vaccine (1 - 1-dose 75+ series) 2016 DTaP,Tdap,Td Vaccine (4 - Td or Tdap) 11/26/2023 11/25/2013, 10/13/2012, 07/07/2012 Advance Directive Discussion 02/10/2024 Influenza Vaccine (#1) 2024 , 11/07/2021, 11/06/2020, Additional history exists Medical Devices Implanted Type Area Special Agent Group Insurance Device Identifier Shelf Expiration Date Model / Serial / Lot Loop Recorder-[id number] Reveal [id number] Implanted:04/21 (Quantity not on file) Implant [employer] [id number] Reveal LINQ / [id number] / Procedures Procedure Name Priority Date/Time Associated Diagnosis Comments FISH FOR AGGRESSIVE B-CELL LYMPHOMA Routine 09/23/2024 6:44 PM EDT Person encountering health services to consult on behalf of another person SURGICAL PATHOLOGY REFERENCE LAB CONSULT Routine 09/23/2024 6:44 PM EDT Person encountering health services to consult on behalf of another person SURGICAL PATHOLOGY REFERENCE LAB CONSULT Routine 09/12/2024 5:17 PM EDT Person encountering health services to consult on behalf of another person BASIC METABOLIC PANEL Routine 08/02/2013 2:46 PM EDT Other specified pre-operative examination External hemorrhoids without mention of complication Internal hemorrhoids without mention of complication from Last 3 Months or Most Recently Relevant to Health Maintenance Results * SURGICAL PATHOLOGY REFERENCE LAB CONSULT (09/23/2024 6:44 PM EDT) Only the most recent of2 resultswithin the time period is included. Case Report Surgical Pathology Report Case: [id number] Authorizing Provider: Wilder Darby MD Collected: 09/23/2024 06:44 PM Ordering Location: [facility] Received: 09/23/2024 06:44 PM [facility] Pathologist: Roma Avitia MD Specimen: Block(s) and/or Slide(s), 23 SLIDES 3 BLOCKS (A1 B1 C1;[id number]) 10/05/2024 12:57 PM EDT [facility] FINAL DIAGNOSIS A. 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 - See comment. MMN 09/26/24 10/05/2024 12:57 PM EDT [facility] at 0687 EDT Diagnosis Comment According to the accompanying paperwork, flow cytometry performed on outside specimen A demonstrated a kappa-restricted, GE15-mzlevmne B-cell population with increased cell size. By report, flow cytometry performed on outside part B demonstrated a kappa-restricted, GV20-omjkyoqz B-cell population (13% of sample). A prior needle biopsy of a left neck mass/cervical lymph node demonstrated necrosis and a lymphoplasmacytic and histiocytic infiltrate but was not further diagnostic (see [id number]). 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 The large B-cell lymphoma has a germinal center immunophenotype by the Janes algorithm. Final classification of this process requires correlation with the results of pending FISH studies for MYC, MYC::IGH, BCL2, and BCL6 rearrangements. When the results of these studies are available, they will be reported in an addendum addendum along with a final ICC/WHO diagnosis for the large B-cell lymphoma component of this case. This case was also reviewed by Dr. Bentley Drummond of the section of hematopathology, who agrees with the above rendered final diagnosis. Thank you for sending this case in consultation. Please contact the Hematopathology Consult Service at [phone] for any questions or if additional follow-up information becomes available. 10/05/2024 12:57 PM EDT [facility] Microscopic Description Histologic sections of demonstrate an enlarged lymph nodes with architecture effaced by a vaguely nodular infiltrate composed of of lymphoid cells with irregular nuclear contours, slightly dispersed chromatin, one to multiple small nucleoli, and scant amounts of cytoplasm. A majority of the lymphoid cells are small to intermediate in size, but large cells morphologically compatible with centroblasts are also seen. In some areas, there are diffuse sheets of greater than 15 centroblasts per high-power field, and these areas are accompanied by increased mitotic activity. The abnormal lymphocytes extend into the surrounding fibroadipose tissue. There are numerous areas of fibrosis and crush artifact. Areas of geographic necrosis are present. Submitted immunohistochemistry and special stains are reviewed at [facility]. Cytokeratin AE1/AE3 is negative. AFB and GMS stains are negative for acid-fast bacilli and fungal elements, respectively. Immunohistochemistry is performed on provided block B1. CD20 and PAX5 are diffusely positive, consistent with B cells. CD3 highlights background small T cells. CD21 appears to primarily demonstrate staining in the lymphocytes and also highlights focal follicular dendritic cell meshworks. Definitive follicular dendritic cell meshworks are not seen in the areas of increased large cells. The Ki-67 proliferation index is approximately 50% overall. Immunohistochemistry is performed on provided block C1. CD20 and PAX5 are diffusely positive, consistent with B cells. The B cells coexpress CD10, BCL6, and BCL2 (80%). cMYC is positive in approximately 10% of cells. MUM1 is positive in 5-10% of overall cellularity. CD3 and CD5 highlight numerous background small T cells. The lymphocytes are negative for cyclin D1. The Ki-67 proliferation index is approximately 80% in the diffuse areas composed of large cells. CD21 is negative for follicular dendritic cell meshworks in the areas composed of sheets of large cells. Chromogenic in situ hybridization for EBV-encoded RNA (SWATI-CISH) is positive in rare scattered background small cells and is negative in the large B cells. 10/05/2024 12:57 PM EDT [facility] Clinical History CONSULT REQUESTED 10/05/2024 12:57 PM EDT [facility] Performing Lab Diagnostic interpretation performed at: [facility], [address] [place] [address], [place] [address] CLIA# [id number] County Treasurer: Klever Stein MD 10/05/2024 12:57 PM EDT [facility] Addendum Aggressive B-Cell Neoplasm Biomarker Template 2021 ICC Diagnosis: Diffuse large B-cell lymphoma, not otherwise specified. WHO 5th ed. Diagnosis: Diffuse large B-cell lymphoma, not otherwise specified. Biomarker Results: Cell of origin (Janes diamond cleaner): Germinal center MYC expression (Positive when >=40% tumor cells by IHC): 20% BCL2 expression (Positive when >=50% tumor cells by IHC): 80% Ki67 expression (% tumor cells by IHC): 80% BCL2 translocation (FISH): Positive BCL6 translocation (FISH): Negative MYC translocation (FISH): Negative IGH::MYC translocation (FISH): Negative Please see the separate FISH reports for complete details of those studies. [facility] 10/03/24 10/05/2024 12:57 PM EDT [facility] Addendum electronically signed by Roma Avitia MD on 10/03/2024 at 1530 EDT Addendum The purpose of this addendum is to report the results of immunohistochemistry for TdT performed on outside paraffin block C1 at [facility] that was inadvertently omitted from the original microscopic description. TdT is negative. The final diagnosis remains unchanged. [facility] 10/05/24 10/05/2024 12:57 PM EDT [facility] Addendum electronically signed by Roma Avitia MD on 10/05/2024 at 1257 EDT Disclaimer Laboratory Developed Test (LDT) Disclaimer: Performance characteristics of immunohistochemical, immunofluorescent, and chromogenic in-situ hybridization tests have been determined by the performing laboratory within [facility] ([facility], [facility], [facility], [facility], [facility], or [facility]) in a manner consistent with CLIA requirements. One or more of these tests may not have been cleared or approved by the FDA. [facility] is regulated under CLIA as qualified to perform high-complexity testing. These tests are used for clinical purposes. These should not be regarded as investigational or for research. Positive and negative controls stain appropriately. 10/05/2024 12:57 PM EDT [facility] Blocks or Slides PARAFFIN EMBEDDED TISSUE BLOCK SPECIMEN / Unknown 09/23/2024 6:44 PM EDT 09/23/2024 6:44 PM EDT Wilder Darby MD SURGICAL PATHOLOGY Edited Result - Final [facility] [address] [facility] [address] [place] [address], [place] * FISH FOR AGGRESSIVE B-CELL LYMPHOMA (09/23/2024 6:44 PM EDT) FISH for Aggressive B-cell Lymphoma FISH for Aggressive B-cell Lymphoma Tissue Laboratory Accession Number: [id number] Case: [id number] Block/Part ID: [id number] ([id number]; C1) Sample Type: FFPET Sample Description: LEFT CERVICAL LYMPH NODE, LEVEL 5A, EXCISIONAL BIOPSY Received Date: 2024-09-28 12:56:56 Number of nuclei scored: 200 PER PROBE SET RESULT: Result Reference Range BCL6 Rearrangement 2% (0-9%) MYC Rearrangement 3% (0-11%) t(8;14)(q24.21;q32 .33) IGH::MYC 0% (0-7%) BCL2 Rearrangement 35% (0-5%) INTERPRETATION: 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 Negative for rearrangements involving the MYC or BCL6 genes. BCL2 translocations and other rearrangements may be seen in follicular lymphoma, diffuse large B-cell lymphoma, or other B-cell non-Hodgkin lymphomas. The most common BCL2 translocation, t(14;18)(q32.33;q2 1.33), results in an IGH::BCL2 fusion, but other partner genes may also be involved in BCL2 rearrangements. Chromosomal analysis may be helpful in further evaluation, if clinically indicated. Clinical and pathologic correlation is recommended. There is a 12% gain (3 copies) of the MYC (8q24) gene region. Nomenclature: nuc capri(BCL6x2)[146/20 0],(D8Z1,MYC,IGH)x 2[152/200],(MYCx 3)[23/200],(BCL2x2 ~3)(3'BCL2 con 5'BCL2x1~2)[70/200 ] METHODOLOGY: Fluorescence in situ hybridization analysis was performed using the following probes ([place], [place], [place]): LSI MYC dual color, break-apart rearrangement probes; LSI IGH/MYC/CEP8 tricolor, dual fusion probes; LSI BCL2 dual color, break-apart rearrangement probes; and LSI BCL6 dual color, break-apart rearrangement probes. DISCLAIMER: This test was developed and its performance characteristics determined by [facility]'s Pathology and Laboratory Medicine Department. It has not been cleared or approved by the FDA. [facility]'s Pathology and Laboratory Medicine Department is regulated under CLIA as qualified to perform high-complexity testing. This test is used for clinical purposes. It should not be regarded as investigational or for research. Test performed at [facility], [address] [place] [address]. CLIA Number: [id number] Interpretation performed by Elena Carmen MD 09/30/2024 11:23 PM EDT [facility] Blocks or Slides PARAFFIN EMBEDDED TISSUE BLOCK SPECIMEN / Unknown 09/23/2024 6:44 PM EDT 09/27/2024 6:20 PM EDT Wilder Darby MD LABORATORY Final Result [facility] [address] [place] [address] [place] [address], * BASIC METABOLIC PNL (08/02/2013 2:46 PM EDT) Glucose 92 65 - 100 mg/dL [facility] BUN 15 10 - 25 mg/dL [facility] Creatinine 0.79 0.70 - 1.40 mg/dL [facility] Sodium 139 135 - 146 mmol/L [facility] Potassium 4.2 3.5 - 5.0 mmol/L [facility] Chloride 103 98 - 110 mmol/L [facility] CO2 26 23 - 32 mmol/L [facility] Anion Gap 10 0 - 15 mmol/L [facility] Calcium 9.6 8.5 - 10.5 mg/dL [facility] eGFR- >60 [facility] eGFR-All Other Races >60 . [facility] Comment: eGFR (Estimated GFR) Units of measure: mL/min/1.73 meters squared eGFR is derived from the reexpressed MDRD Study equation using the following parameters: serum creatinine, age, gender and race. The creatinine assay has been calibrated to be traceable to IDMS. An eGFR <60 mL/min/1.73m2 for >3 months is consistent with chronic kidney disease. Refer to KDOQI guidelines for clinical interpretation. Blood specimen (specimen) BLOOD SPECIMEN / Unknown 08/02/2013 2:46 PM EDT 08/02/2013 2:48 PM EDT us Kandace Antoine)(Hist) [facility] Fi nal Result [facility] [address] [place] [address] from Last 3 Months or Most Recently Relevant to Health Maintenance Insurance [address] [place] [address] [facility] MEDICARE Care Teams Pharmacy Picking Technician Relationship Specialty Start Date End Date Duarte Herrmann DO PCP - General Internal Medicine 07/18/13
--- OUTSIDE RECORDS SUMMARY | 2024-10-14 13:48 | XMS_ITS | Encounter Summary ---
Author Organization [facility] Address [address] [place] [address] Care Team Providers Care Development Chemist Name Role Phone Duarte Herrmann DO Primary Care Provider [phone] Encounter Details Date Type Department Care Team (Late Contact Info) Description 10/14/2024 External Result Encounter [facility] External [facility] Unsolicited Nidia Pugh MD [address] [place] [address] Social History Tobacco Use Types Packs/Day Years Used Date Smoking Tobacco: Never Smokeless Tobacco: Never Alcohol Use Standard Drinks/Week Comments Not Currently 0 (1 standard drink = 0.6 oz pur e alcohol) Sex and Gender Information Value Date Recorded Sex Assigned at Not on file Legal Sex Male 10:28 AM EDT Gender Identity Not on file Sexual Orientation Not on file documented as of this encounter Plan of Treatment Upcoming Encounters Date Type Department Care Team (Late st Contact Info) Description 10/19/2024 11:00 AM EDT Consult [facility] [address] [phone] Roque Hunter MD [address] [address] 10/31/2024 2:00 PM EDT Office [facility] [address] [place] [address] Duarte Flores DO [address] [place] [address] documented as of this encounter Procedures Procedure Name Priority Date/Time Associated Diagnosis Comments CBC WITH AUTO DIFFERENTIAL Routine 10/14/2024 8:00 AM EDT documented in this encounter Results * (ABNORMAL) CBC auto differential (10/14/2024 8:00 AM EDT) WBC 9.4 4.1 - 10.5 [CFU]/mL 10/14/2024 9:12 AM EDT [facility] UNCORRECTED WHITE BLOOD COUNT 9.4 4.1 - 10.5 10*3/uL 10/14/2024 9:12 AM EDT [facility] RBC 4.33 3.90 - 5.60 10*6/uL 10/14/2024 9:12 AM EDT [facility] HEMOGLOBIN 12.1(L) 13.0 - 17.0 g/dL 10/14/2024 9:12 AM EDT [facility] HEMATOCRIT 37.1(L) 38.8 - 50.0 % 10/14/2024 9:12 AM EDT [facility] MCV 85.7 83.5 - 101 fL 10/14/2024 9:12 AM EDT [facility] MCH 28.0 27.5 - 35.2 pg 10/14/2024 9:12 AM EDT [facility] MCHC 32.7 32.5 - 35.6 g/dL 10/14/2024 9:12 AM EDT [facility] RED CELL DISTRIBUTION WIDTH, RDW 18.0(H) 12.0 - 14.8 % 10/14/2024 9:12 AM EDT [facility] PLATELET COUNT 245 150 - 450 10*3/uL 10/14/2024 9:12 AM EDT [facility] MEAN PLATELET VOLUME, MPV 8.4 6.6 - 10.1 fL 10/14/2024 9:12 AM EDT [facility] NEUTROPHILS, % 55.3 . % 10/14/2024 9:12 AM EDT [facility] LYMPHOCYTES, % 30.2 . % 10/14/2024 9:12 AM EDT [facility] MONOCYTE/MACROPHA GE, % 12.0 . % 10/14/2024 9:12 AM EDT [facility] EOSINOPHILS, % 1.9 . % 10/14/2024 9:12 AM EDT [facility] BASOPHILS, % 0.6 . % 10/14/2024 9:12 AM EDT [facility] NRBC 0.1 0 - 0.5 /100{WBC} 10/14/2024 9:12 AM EDT [facility] NEUTROPHILS 5.2 1.8 - 7.7 10*3/uL 10/14/2024 9:12 AM EDT [facility] LYMPHOCYTES 2.8 1.00 - 4.8 10*3/uL 10/14/2024 9:12 AM EDT [facility] MONOCYTES 1.1(H) 0.0 - 0.8 10*3/uL 10/14/2024 9:12 AM EDT [facility] EOSINOPHILS 0.2 0.0 - 0.45 10*3/uL 10/14/2024 9:12 AM EDT [facility] BASOPHILS 0.1 0.0 - 0.2 10*3/uL 10/14/2024 9:12 AM EDT [facility] Blood (Blood) 10/14/2024 8:0 0 AM EDT 10/14/2024 8:42 AM EDT us Nidia Pugh MD LAB BLOOD ORDERABLES Final Resul t [facility] [address] [place] [address], [facility] [address] [place] [address] documented in this encounter Visit Diagnoses Not on filedocumented in this encounter Care Teams Development Chemist Relationship Specialty Start Date End Date Duarte Herrmann DO [address] [place] [phone] PCP - General Internal Medicine 07/26/24 documented as of this encounter
--- OUTSIDE RECORDS SUMMARY | 2024-10-14 13:48 | XMS_ITS | Encounter Summary ---
Author Organization [facility] Address [address] [place] [address] Care Team Providers Care Lineman Service Or Work Dispatcher Name Role Phone Duarte Herrmann DO Primary Care Provider [phone] Encounter Details Date Type Department Care Team (Late st Contact Info) Description 09/05/2024 Abstract [facility] [address] [place] [phone] Duarte Flores DO [address] [place] [address] Social History Tobacco Use Types Packs/Day Years Used Date Smoking Tobacco: Never Assessed Sex and Gender Information Value Date Recorded Sex Assigned at Not on file Legal Sex Male 10:28 AM EDT Gender Identity Not on file Sexual Orientation Not on file documented as of this encounter Plan of Treatment Upcoming Encounters Date Type Department Care Team (Late st Contact Info) Description 10/19/2024 11:00 AM EDT Consult [facility] [address] [phone] Roque Hunter MD [address] [facility] [address] [place] [address] 10/31/2024 2:00 PM EDT Office Visit [facility] [address] [place] [phone] Duarte Flores DO [address] [place] [address] documented as of this encounter Visit Diagnoses Not on filedocumented in this encounter Care Teams Lineman Service Or Work Dispatcher Relationship Specialty Start Date End Date Duarte Herrmann DO [address] [place] [phone] PCP - General Internal Medicine 07/26/24 documented as of this encounter
--- OUTSIDE RECORDS SUMMARY | 2024-10-14 13:48 | XMS_ITS | Encounter Summary ---
Author Organization [facility] Address [address] [place] [address] Care Team Providers Care Retail Management Trainee Name Role Phone Duarte Herrmann DO Primary Care Provider [phone] Encounter Details Date Type Department Care Team (Late Contact Info) Description 10/14/2024 External Result Encounter [facility] External Department Unsolicited Nidia Pugh MD [address] [place] [address] Social History Tobacco Use Types Packs/Day Years [...] AM EDT Consult [facility] [address] [phone] Roque Hunter MD [address] [address] 10/31/2024 2:00 PM EDT Office Visit [facility] [address] [place] [address] Duarte Flores DO [address] [place] [address] documented as of this encounter Procedures Procedure Name Priority Date/Time Associated Diagnosis Comments PET/CT SKULL BASE TO MID THIGH 10/14/2024 10:56 AM EDT documented in this encounter Results * PET/CT skull base to mid thigh (10/14/2024 10:56 AM EDT) Anatomical Region Laterality Modality Body Computed Tomogra phy 10/14/2024 10:5 6 AM EDT Impressions 10/14/2024 11:26 AM EDT FDG avid lymph nodes seen involving both above and below the diaphragm as described above consistent with the history. Abnormal activity is seen involving the right iliac bone extending into the right acetabulum suspicious for bony involvement. Left-sided hydronephrosis and proximal left hydroureter likely due to extrinsic compression by the lymphadenopathy. Impression dictated by: Douglas Hector Jr., D.OMary Kate 10/14/2024 11:24 AM Dictation Location: [place] [address] Transcribed By: [facility] 10/14/24 1124 Dictated By: Douglas Hector Jr, DO 10/14/24 1056 Signed By: <Electronically signed by Douglas Hector Jr, DO in OV> 10/14/24 1124 Narrative 10/14/2024 11:26 AM EDT [facility] Main [place] [address] [place] [address] Nuclear Medicine Report Signed Patient: Larry Hart MR#: [id number] [birth year] : 1940 Acct:[id number] Age/Sex: 84 / M ADM Date: 10/14/24 Loc: Room: Type: 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 TECHNIQUE: Noncontrasted CT scan from the base of the skull to the upper thigh followed by PET imaging. Multiplanar PET/CT fusion images. Blood Glucose : 95 mg/dL The F-18 FDG 11.825mCi. FINDINGS: Neck: FDG avid lymph node adjacent to the left lobe of thyroid gland, SUV max of 5.8. (Deauville 4) FDG avid left-sided level 2 lymph nodes, SUV max of 7.4(Deauville 4) Chest:FDG avid lymph node adjacent to the esophagus, SUV max 3.8 (Deauville 4) . No abnormal activity is seen involving the hilar regions or lungs. Abdomen/pelvis: Multiple FDG avid lymph nodes involving the retroperitoneum extending along the iliac chains and inguinal regions, SUV max of 5.9(Deauville 4) . Multiple FDG avid lymph nodes involving the mesentery, SUV max of 8.0 (Deau[place] 4) . Soft tissue/bones: Abnormal FDG activity is seen involving the right iliac bone extending into the right acetabulum, SUV max of 8.8 (Deau[place] 4) . No definitive CT abnormality seen on the concurrent CT within this region. CT findings: Evidence of old granulomatous disease. No pneumothorax. No pericardial or pleural effusions. Moderate size hiatal hernia. No free air or free fluid. Left-sided hydronephrosis and proximal left hydroureter possibly due to extrinsic compression by the lymphadenopathy. PET/PET tumor init tx strat sb-mt Procedure Note Douglas Hector Jr., - 10/14/2024 [facility] [place] [address] Nuclear Medicine Report Signed Patient: Larry Hart 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 TECHNIQUE: Noncontrasted CT scan from the base of the skull to the upperthigh followed by PET imaging. Multiplanar PET/CT fusion images. Blood Glucose : 95 mg/dL The F-18 FDG 11.825mCi. FINDINGS: Neck: FDG avid lymph node adjacent to the left lobe of thyroid gland, SUVmax of 5.8. ([place] 4) FDG avid left-sided level 2 lymph nodes, SUV max of 7.4([place]auville 4) Chest:FDG avid lymph node adjacent to the esophagus, SUV max 3.8(Deauville 4) . No abnormal activity is seen involving the hilar regions or lungs. Abdomen/pelvis: Multiple FDG avid lymph nodes involving theretroperitoneum extending along the iliac chains and inguinal regions, SUV max of 5.9(Deauville 4) .Multiple FDG avid lymph nodes involving the mesentery, SUV max of 8.0 (Deau[place] 4) . Soft tissue/bones: Abnormal FDG activity is seen involving the right iliacbone extending into the right acetabulum, SUV max of 8.8 (Deauville 4) . No definitive CTabnormality seen on the concurrent CT within this region. CT findings: Evidence of old granulomatous disease. No pneumothorax. Nopericardial or pleural effusions. Moderate size hiatal hernia. No free air or free fluid.Left-sided hydronephrosis and proximal left hydroureter possibly due to extrinsic compression by thelymphadenopathy. PET/PET tumor init tx strat sb-mt IMPRESSION: FDG avid lymph nodes seen involving both above and below the diaphragm asdescribed above consistent with the history. Abnormal activity is seen involving the right iliac bone extending intothe right acetabulum suspicious for bony involvement. Left-sided hydronephrosis and proximal left hydroureter likely due toextrinsic compression by the lymphadenopathy. Impression dictated by: Douglas Hector Jr., D.OMary Kate 10/14/2024 11:24 AM Dictation Location: [place] [address] Transcribed By: [facility] 10/14/24 1124 Dictated By: Douglas Hector Jr, DO 10/14/24 1056 Signed By: <Electronically signed by Douglas Hector Jr DO inOV> 10/14/24 1124 Nidia Pugh MD IMG CT PROCEDURES Final Result documented in this encounter Visit Diagnoses Not on filedocumented in this encounter Care Teams Retail Management Trainee Relationship Specialty Start Date End Date Duarte Herrmann DO [address] [place] [phone] PCP - General Internal Medicine 07/26/24 documented as of this encounter
--- OUTSIDE RECORDS SUMMARY | 2024-10-14 13:48 | XMS_ITS | Clinical Summary ---
Author Organization [facility] Healthcare Address [address] [place] [address] Care Team Providers Care Sketch Artist Name Role Phone MontezDuarte Sabino ROCHA Primary Care Provider [phone] Allergies Active Allergy Reactions Criticality Noted Date Comments Azithromycin 09/16/2024 Other Reaction(s): Hives Cefdinir 09/16/2024 Other Reaction(s): Hives Medications Adalimumab (Humira-CD/UC/HS Starter) 40 MG/0.8ML Auto-injector Kit Inject under the skin Active losartan (Cozaar) 25 MG tablet Twice daily 08/22/2024 Active methotrexate 2.5 MG tablet Take 25 mg by mouth 1 (one) time per week. Active omeprazole (PriLOSEC) [address] capsule Twice daily 11/18/2023 Active FOLIC ACID PO Take by mouth Active Active Problems No known active problems Resolved Problems Problem Noted Date Diagnosed Date Resolved Date Acid reflux 09/12/2024 09/12/2024 Barretts esophagus 09/12/2024 Bilateral lower extremity edema 09/12/2024 09/12/2024 Change in bowel habits 09/12/202409/12 Acute exacerbation of chroni c obstructive airways disease 09/12/2024 09/12/2024 Fatigue 09/12/2024 09/12/2024 Ground glass opacity present on imaging of lung 09/12/2024 09/12/2024 Overview (09/12/2024): CT: GGO B/L lung base L>R, RML nodule - 06/2024, CT: GGO B/L lung base L>R w/ improvement, RML nodule more prominent - 08/2024 Repeat High risk medication use 09/12/202405/2024 Hypercholesterolemia 09/12/2024 025 Hypertension 09/12/2024 09/12/2024 Overview (09/12/2024): Echo: LVEF 60%, LEN, normal RV size/function - 06/2024 Hypoxemia 09/12/2024 09/12/2024 ILD (interstitial lung disease) 09/12/2024 09/12/2024 Overview (09/12/2024): CT: lymphadenopathy and B/L parenchymal changes - 06/2024 Recommend recheck Immunosuppressed status 09/12/2024 08/05/2024 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 09/12/2024 Lumbar spondylosis 09/12/2024 Pneumonia 09/12/2024 09/12/2024 Primary osteoarthritis, right shoulder 09/12/2024 09/12/2024 Rheumatoid arthritis in remission 09/12/2024 09/12/2024 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 09/12/2024 09/12/2024 Right shoulder pain 09/12/2024 09/13/19 Medicare annual wellness visit, subsequent 09/12/2024 09/12/2024 Supraclavicular adenopathy 09/12/2024 0 09/12/2024 Overview (09/12/2024): CT: 5.1cm left supraclavicular adenopathy - 08/2024, FNA - 08/2024 Tachycardia 09/12/2024 09/12/2024 Thrombocytopenia 09/12/2024 09/12/2024 Recurrent right inguinal hernia 05/12/2018 09/12/2024 Supraumbilical hernia 05/12/20182024 Encounters Date Type Department Care Team Description 10/14/2024 External Result Encounter [facility] External Department Unsolicited Nidia Pugh MD 10/14/2024 External Result Encounter [facility] External Department Unsolicited Nidia Pugh MD 10/14/2024 External Result Encounter [facility] External Department Unsolicited Nidia Pugh MD 10/14/2024 External Result Encounter [facility] External Department Unsolicited Nidia Pugh MD 2024 Abstract [facility] [address] [place] [address] Duarte Flores, 09/26/2024 2:15 PM EDT Office Visit [facility] [address] [place] [address] Duarte Flores, Cervical adenopathy (Primary Dx) 09/26/2024 Bamboo flowsheet [facility] [address] [place] [address] Duarte Flores, 09/26/2024 Travel 09/16/2024 8:00 AM EDT Procedure Visit [facility] Duarte Flores, Cervical adenopathy (Primary Dx) 09/12/2024 1:45 PM EDT Office Visit [facility] [address] [place] [address] Duarte Flores, Cervical lymphadenopathy (Primary Dx) 09/12/2024 Bamboo flowsheet [facility] [address] [place] [address] Duarte Flores, 09/12/2024 Travel 09/05/2024 Abstract [facility] [address] [place] [address] Duarte Flores, from Last 3 Months Immunizations Immunization Administration Dates Next Due Influenza, High Dose Seasona l, Preservative Free 11/12/2023 Influenza, Seasonal, Quadriv alent, Adjuvanted 11/07/2021,11/16/2019 Influenza, Unspecified 11/10/2022,2020,11/18/2017,12/22 Influenza, injectable, MDCK, preservative free, quadrivalent 11/17/2018,12/03/2016 Influenza, injectable, quadr ivalent, preservative free 11/15/2017 Influenza, seasonal, injecta ble, preservative free 12/29/2014 Pneumococcal Conjugate PCV 13 02/21/2015 Pneumococcal Conjugate PCV 20 11/10/2022 Pneumococcal Polysaccharide PPSV23 01/12/2002 Td (adult), 5 Lf tetanus tox oid, preservative free, adsorbed 11/25/2013,10/13/2012,07/07/2012 Social History Tobacco Use Types Packs/Day Years Used Date Smoking Tobacco: Never Smokeless Tobacco: Never Tobacco Cessation:Counseling Given: Not Answered Alcohol Use Standard Drinks/Week Comments Not Currently 0 (1 standard drink = 0.6 oz pur e alcohol) Sex and Gender Information Value Date Recorded Sex Assigned at Not on file Legal Sex Male 10:28 AM EDT Gender Identity Not on file Sexual Orientation Not on file Last Filed Vital Signs Vital Sign Reading Time Taken Comments Blood Pressure - - Pulse - - Temperature - - Respiratory Rate - - Oxygen Saturation - - Inhaled Oxygen Concentration - - Weight 83.9 kg (185 lb) 09/26/2024 2:14 PM EDT Height 188 cm (6' 2 ) 09/26/2024 2:14 PM EDT Body Mass Index 23.75 09/26/2024 2:14 PM EDT Plan of Treatment Upcoming Encounters Date Type Department Care Team (Late st Contact Info) Description 10/19/2024 11:00 AM EDT Consult [facility] [address] [phone] Roque Huntre MD [address] [address] 10/31/2024 2:00 PM EDT Office Visit [facility] [address] [place] [phone] Duarte Flores, DO [address] [place] [address] Health Maintenance Due Date Last Done Comments Influenza Vaccine (#1) 2024 4, 11/10/2022, 11/07/2021, Additional history exists Pneumococcal Vaccine: 65+ Years Completed 11/10/2022, 02/21/2015, 01/12/2002 Procedures Procedure Name Priority Date/Time Associated Diagnosis Comments PET/CT SKULL BASE TO MID THIGH 10/14/2024 10:56 AM EDT URIC ACID Routine 10/14/2024 8:00 AM EDT LD Routine 10/14/2024 8:00 AM EDT COMPREHENSIVE METABOLIC PANEL Routine 10/14/2024 8:00 AM EDT CBC WITH AUTO DIFFERENTIAL Routine 10/14/2024 8:00 AM EDT GLUCOSE POCT GLUCOMETERS Routine 10/14/2024 7:53 AM EDT from Last 3 Months Results * PET/CT skull base to mid [...] lymphadenopathy. Impression dictated by: Douglas Hector Jr., D.O. 10/14/2024 11:24 AM Dictation Location: [place] [address] Transcribed By: LAVONNE 10/14/24 1124 Dictated By: Douglas Hector Jr, DO 10/14/24 1056 Signed By: <Electronically signed by Douglas Hector Jr, DO in OV> 10/14/24 1124 Narrative 10/14/2024 11:26 AM EDT [facility] Main [place] [address] [place] [address] Nuclear Medicine Report Signed Patient: Larry Hart MR#: [id number] [birth year] : 1940 Acct:[id number] Age/Sex: 84 / M ADM Date: 10/14/24 Loc: Room: [facility] Attending Dr: Nidia Pugh MD Copies to: [...] Procedure Note Douglas Hector Jr., - 10/14/2024 [facility] Main [place] [address] [place] [address] Nuclear Medicine Report Signed Patient: Larry Hart [employer] [facility]#: [id number] [birth year] : 2Acct:[id number] Age/Sex: 84 / MADM Date: 10/14/24 Loc: Room:Type: [facility] Attending Dr: Nidia Pugh MD Copies to: [...] D.OMary Kate 10/14/2024 11:24 AM Dictation Location: [place] [address] Transcribed By: [facility] 10/14/24 1124 Dictated By: Douglas Hector Jr, DO 10/14/24 1056 Signed By: <Electronically signed by Douglas Hector Jr, DO inOV> 10/14/24 1124 Nidia Pugh MD IMG CT PROCEDURES Final Result * (ABNORMAL) CBC auto differential (10/14/2024 8:00 AM EDT) WBC 9.4 4.1 - 10.5 [CFU]/mL 10/14/2024 9:12 AM EDT [facility] UNCORRECTED WHITE BLOOD COUNT 9.4 4.1 - 10.5 10*3/uL 10/14/2024 9:12 AM EDT [facility] RBC 4.33 3.90 - 5.60 10*6/uL 10/14/2024 9:12 AM EDT [facility] HEMOGLOBIN 12.1(L) 13.0 - 17.0 g/dL 10/14/2024 9:12 AM EDT [facility] HEMATOCRIT 37.1(L) 38.8 - 50.0 % 10/14/2024 9:12 AM EDT [facility] MCV 85.7 83.5 - 101 fL 10/14/2024 9:12 AM EDT [facility] MCH 28.0 27.5 - 35.2 pg 10/14/2024 9:12 AM EDT [facility] MCHC 32.7 32.5 - 35.6 g/dL 10/14/2024 9:12 AM EDT [facility] RED CELL DISTRIBUTION WIDTH, RDW 18.0(H) 12.0 - 14.8 % 10/14/2024 9:12 AM EDT [facility] PLATELET COUNT 245 150 - 450 10*3/uL 10/14/2024 9:12 AM EDT [facility] MEAN PLATELET VOLUME, MPV 8.4 6.6 - 10.1 fL 10/14/2024 9:12 AM EDT [facility] NEUTROPHILS, % 55.3 . % 10/14/2024 9:12 AM EDT [facility] LYMPHOCYTES, % 30.2 . % 10/14/2024 9:12 AM EDT [facility] MONOCYTE/MACROPHA GE, % 12.0 . % 10/14/2024 9:12 AM EDT [facility] EOSINOPHILS, % 1.9 . % 10/14/2024 9:12 AM EDT [facility] BASOPHILS, % 0.6 . % 10/14/2024 9:12 AM EDT [facility] NRBC 0.1 0 - 0.5 /100{WBC} 10/14/2024 9:12 AM EDT [facility] NEUTROPHILS 5.2 1.8 - 7.7 10*3/uL 10/14/2024 9:12 AM EDT [facility] LYMPHOCYTES 2.8 1.00 - 4.8 10*3/uL 10/14/2024 9:12 AM EDT [facility] MONOCYTES 1.1(H) 0.0 - 0.8 10*3/uL 10/14/2024 9:12 AM EDT [facility] EOSINOPHILS 0.2 0.0 - 0.45 10*3/uL 10/14/2024 9:12 AM EDT [facility] BASOPHILS 0.1 0.0 - 0.2 10*3/uL 10/14/2024 9:12 AM EDT [facility] Blood (Blood) 10/14/2024 8:0 0 AM EDT 10/14/2024 8:42 AM EDT Nidia Pugh MD LAB BLOOD ORDERABLES Final Resul t [address] [address], [facility] [address] [place] [address] * (ABNORMAL) Uric acid (10/14/2024 8:00 AM EDT) URIC ACID 3.8(L) 4.4 - 7.6 mg/dL 10/14/2024 9:33 AM EDT [facility] Other Topography unknown / Unknown 10/14/2024 8:00 AM EDT 10/14/2024 8:42 AM EDT us Nidia Pugh MD LAB BLOOD ORDERABLES Final Resul t Performing Organization Address [facility] Co de Phone Number [address] [address], [address] [address] * (ABNORMAL) Lactate dehydrogenase (10/14/2024 8:00 AM EDT) LDH LACTATE DEHYDROGENASE 472(H) 140 - 271 U/L 10/14/2024 9:33 AM EDT [facility] Other Topography unknown / Unknown 10/14/2024 8:00 AM EDT 10/14/2024 8:42 AM EDT us Nidia Pugh MD LAB BLOOD ORDERABLES Final Resul t Performing Organization Address City/[facility] Co de Phone Number [address] [address], [address] [address] * (ABNORMAL) Comprehensive metabolic panel (10/14/2024 8:00 AM EDT) Glucose 85 70 - 100 mg/dL 10/14/2024 9:33 AM EDT [facility] Comment: Random Glucose Reference Range is dependent on time and content of last meal. Glucose of more than 200 mg/dL in a nonstressed, ambulatory subject supports the diagnosis of Diabetes Mellitus. ADA recommended reference range BUN 20 7 - 25 mg/dL 10/14/2024 9:33 AM EDT [facility] CREATININE 0.67(L) 0.70 - 1.30 mg/dL 10/14/2024 9:33 AM EDT [facility] ESTIMATED GFR >60.0 10/14/2024 9:33 AM EDT [facility] Sodium 139 136 - 145 mmol/L 10/14/2024 9:33 AM EDT [facility] Potassium, Bld 4.1 3.5 - 5.1 mmol/L 10/14/2024 9:33 AM EDT [facility] Chloride 103 98 - 107 mmol/L 10/14/2024 9:33 AM EDT [facility] Carbon Dioxide 28.1 21.0 - 31.0 mmol/L 10/14/2024 9:33 AM EDT [facility] Anion Gap 12.0 6.0 - 15.0 10/14/2024 9:33 AM EDT [facility] Calcium 9.2 8.6 - 10.3 mg/dL 10/14/2024 9:33 AM EDT [facility] TOTAL PROTEIN 6.2(L) 6.4 - 8.9 g/dL 10/14/2024 9:33 AM EDT [facility] ALBUMIN LEVEL 3.3(L) 3.5 - 5.7 g/dL 10/14/2024 9:33 AM EDT [facility] GLOBULIN 2.9 g/dL 10/14/2024 9:33 AM EDT [facility] ALBUMIN/GLOBULIN RATIO 1.1 10/14/2024 9:33 AM EDT [facility] BILIRUBIN,TOTAL 0.5 0.3 - 1.0 mg/dL 10/14/2024 9:33 AM EDT [facility] ASPARTATE AMINO TRANSFERASE 16 13 - 39 U/L 10/14/2024 9:33 AM EDT [facility] ALANINE AMINOTRANSFERASE 12 7 - 52 U/L 10/14/2024 9:33 AM EDT [facility] ALKALINE PHOSPHATASE 79 34 - 104 U/L 10/14/2024 9:33 AM EDT [facility] CREATININE CLR [facility] 81.34 10/14/2024 9:33 AM EDT [facility] Other Topography unknown / Unknown 10/14/2024 8:00 AM EDT 10/14/2024 8:42 AM EDT Nidia Pugh MD LAB BLOOD ORDERABLES Final Resul t Performing Organization Address [facility] Co de Phone Number [place] [address] [place] [address], [facility] [address] [place] [address] * GLUCOSE POCT GLUCOMETERS (10/14/2024 7:53 AM EDT) [facility] GLUCOSE POC GLUCOMETERS 95 mg/dL 10/14/2024 10:24 AM EDT [facility] Comment: Random Glucose Reference Range is dependent on time and content of last meal. Glucose of more than 200 mg/dL in a nonstressed, ambulatory subject supports the diagnosis of Diabetes Mellitus. Blood (Blood) 10/14/2024 7:5 3 AM EDT 10/14/2024 10:23 AM EDT Nidia Pugh MD LAB BLOOD ORDERABLES Final Resul t Performing Organization Address [facility] Co de Phone Number [address] [place] [address], from Last 3 Months Insurance MEDICARE [facility] [place] [id number] Care Teams Sketch Artist Relationship Specialty Start Date End Date Duarte Herrmann DO [address] [place] [address] PCP - General Internal Medicine 07/26/24
--- OUTSIDE RECORDS SUMMARY | 2024-10-14 13:48 | XMS_ITS | Encounter Summary ---
Author Organization [facility] Address [address] [place] [address] Care Team Providers Care Heat Engineering Teacher Name Role Phone Duarte Herrmann DO Primary Care Provider [phone] Encounter Details Date Type Department Care Team (Late Contact Info) Description 10/14/2024 External Result Encounter [facility] External Department Unsolicited Nidia Pugh MD [address] [place] [address] Social History Tobacco Use Types Packs/Day Years [...] AM EDT [facility] [address] [phone] Roque Hunter MD [address] [address] 10/31/2024 2:00 PM EDT Office Visit [facility] [address] [place] [address] Duarte Flores DO [address] [place] [address] documented as of this encounter Procedures Procedure Name Priority Date/Time Associated Diagnosis Comments GLUCOSE POCT GLUCOMETERS Routine 10/14/2024 7:53 AM EDT documented in this encounter Results * GLUCOSE POCT GLUCOMETERS (10/14/2024 7:53 AM EDT) GLUCOSE POC GLUCOMETERS 95 mg/dL 10/14/2024 10:24 AM EDT [facility] Comment: Random Glucose Reference Range is dependent on time and content of last meal. Glucose of more than 200 mg/dL in a nonstressed, ambulatory subject supports the diagnosis of Diabetes Mellitus. Blood (Blood) 10/14/2024 7:5 3 AM EDT 10/14/2024 10:23 AM EDT us Nidia Pugh MD LAB BLOOD ORDERABLES Final Resul t [facility] [address] [place] [address], documented in this encounter Visit Diagnoses Not on filedocumented in this encounter Care Teams Heat Engineering Teacher Relationship Specialty Start Date End Date Duarte Herrmann DO [address] [place] [phone] PCP - General Internal Medicine 07/26/24 documented as of this encounter
--- OUTSIDE RECORDS SUMMARY | 2024-10-14 13:48 | XMS_ITS | Encounter Summary ---
Author Organization [facility] [place] Address [address] [place] [address] Care Team Providers Care Field Nurse Name Role Phone Duarte Hermrann DO Primary Care Provider [phone] Source Comments In the event this information is protected by the Federal Confidentiality of Alcohol and Drug AbusePatient Records regulations: The Federal rules restrict any use of the information to criminally investigate or prosecute any alcohol or drug abuse patient.[facility] [place] Encounter Details Date Type Department Care Team (Late st Contact Info) Description 09/12/2024 Lab Requisition [facility] [place] [address] Wilder Darby MD [address] [place] [address] Person encountering health services to consult on behalf of another person Social History Tobacco Use Types Packs/Day Years Used Date Smoking Tobacco: Never Smokeless Tobacco: Never Alcohol Use Standard Drinks/Week Comments Yes 0 (1 standard drink = 0.6 oz pur e alcohol) Area Deprivation Index Answer Date Joni rded National Score (1-100), lower number is lower ri sk 64 11/24/2022 State Score (1-10), lower number is lower risk 4 11/24/2022 Data from: https://www.neighborhoodatlas.[facility]/. Last address used for calculation [id number] [place] [address] [address] 11/24/2022 Sex and Gender Information Value Date Recorded Sex Assigned at Not on file Legal Sex Male 8:56 AM EDT Gender Identity Not on file Sexual Orientation Not on file documented as of this encounter Functional Status * Are you deaf or do you have serious difficulty hearing? Answer Date of Assessment Author No 09/01/2013 2:51 PM EDT Brian Hidalgo LPN * Are you blind or do you have serious difficulty seeing, even when wearing glasses? Answer Date of Assessment Author No 09/01/2013 2:51 PM EDT Brian Hidalgo MEDART OPERATOR * Do you have serious difficulty walking or climbing stairs? Answer Date of Assessment Author No 09/01/2013 2:51 PM EDT Brian Hidalgo MEDART OPERATOR * Do you have difficulty dressing or bathing? Answer Date of Assessment Author No 09/01/2013 2:51 PM EDT Brian Hidalgo MEDART OPERATOR * Because of a physical, mental, or emotional condition, do you have difficulty doing errands alone such as visiting a doctor's office or shopping? Answer Date of Assessment Author No 09/01/2013 2:51 PM EDT Brian Hidalgo LPN documented as of this encounter Mental Status * Because of a physical, mental, or emotional condition, do you have serious difficulty concentrating, remembering, or making decisions? Answer Entry Date Author No 09/01/2013 2:51 PM EDT Brian Hidalgo LPN documented in this encounter Plan of Treatment Not on file documented as of this encounter Procedures Procedure Name Priority Date/Time Associated Diagnosis Comments SURGICAL PATHOLOGY REFERENCE LAB CONSULT Routine 09/12/2024 5:17 PM EDT Person encountering health services to consult on behalf of another person documented in this encounter Results * SURGICAL PATHOLOGY REFERENCE LAB CONSULT (09/12/2024 5:17 PM EDT) Case Report Surgical Pathology Report Case: [id number] Authorizing Provider: Wilder Darby MD Collected: 09/12/2024 05:17 PM Ordering Location: [facility] Received: 09/12/2024 05:17 PM [facility] Pathologist: Mell Lazo MD Specimen: Slide(s), 20 SLIDES [id number] 09/13/2024 1:33 PM EDT [facility] FINAL DIAGNOSIS Outside slides from [facility], [place], [place], labeled as [id number], collected on 09/05/2024. A. Left neck mass/cervical lymph node/ultrasound-guide d core needle biopsy: - Small limited biopsy cores predominantly showing necrosis and a viable fragment with lymphoplasmacytic and histiocytic infiltrate, not further diagnostic (see comment). September 13, 2024 09/13/2024 1:33 PM EDT [facility] at 1333 EDT Diagnosis Comment The patient is an 83-year-old man with a reported history of enlarged left neck lymph node. The histologic sections, together with the immunohistochemical and flow cytometric immunophenotypic studies, demonstrate very small fragmented thin biopsy cores predominantly showing large areas of necrosis and a small viable fragments showing lymphoplasmacytic and histiocytic infiltrate that is not further diagnostic. Very scant tissue remains on the slides received for review and therefore a block was not requested for further analysis. A definitive diagnosis is not possible based on the currently available information on this limited biopsy specimen and the differential diagnosis remains broad including the possibility of a neoplastic process. Correlation with clinical and imaging findings is suggested. If clinically indicated, a repeat larger biopsy from a viable area or preferably an excisional biopsy with flow cytometric analysis is recommended for a definitive diagnosis. Thank you for sending this case in consultation. Please contact the Hematopathology Consult Service at [phone] for any questions or if additional follow-up information becomes available. 09/13/2024 1:33 PM EDT [facility] Microscopic Description The histologic sections demonstrate very small thin fragmented biopsy cores showing predominantly large areas of necrosis and a single viable biopsy fragment showing a mixed infiltrate comprised of lymphocytes, histiocytes, plasma cells, neutrophils and few eosinophils, and occasional large cells. Immunohistochemical stains received from the referring institution performed on sections from the block [id number], were reviewed at the [facility]. Cytokeratin AE1/AE3, CK5/6, p40, HMB45, S100, desmin, CD21, CD30 and SOX10 are essentially negative. CD45 shows positivity in the necrotic areas and also highlights many positive cells in the viable fragment. CD3 shows moderate numbers of predominantly small admixed T cells. CD5 is similar to CD3. CD10 shows positivity in the necrotic areas and also shows some stromal staining, positivity on some of the cellular elements cannot be entirely excluded. CD20 shows weak variable positivity in the necrotic areas and shows moderate numbers of strongly positive cells in the viable fragment with variation in size and including scattered larger lymphoid cells. CD68 shows moderate numbers of admixed histiocytic cells, nonspecific background staining is present. CD138 highlights few scattered positive plasma cells in the viable areas. Ki-67 shows approximately 10-20% positive cells in the viable fragment. Smooth muscle actin shows positivity in the necrotic areas as well as highlights some stromal staining. Vimentin shows extremely scant remaining tissue with positivity. Flow cytometric immunophenotypic studies performed at [facility] were reported to show no significant lymphoid immunophenotypic abnormalities. 27% lymphocytes were detected with 3.8% polytypic B cells, T cells with no significant abnormalities and a CD4/CD8 ratio of 2.3 and 2.4% NK cells. 73% CD45 negative events/debris was detected. Specimen viability was low at 48%. 09/13/2024 1:33 PM EDT [facility] Clinical History CONSULT REQUESTED 09/13/2024 1:33 PM EDT [facility] Performing Lab Diagnostic interpretation performed at: [facility], [address] [place] [address] CLIA# [id number] Seafood Harvester: Klever Stein MD 09/13/2024 1:33 PM EDT [facility] Disclaimer Laboratory Developed Test (LDT) Disclaimer: Performance characteristics of immunohistochemical, immunofluorescent, and chromogenic in-situ hybridization tests have been determined by the performing laboratory within [facility] [place] Department ([facility], [facility], [facility], [facility], [facility], [facility], or [facility]) in a manner consistent with CLIA requirements. One or more of these tests may not have been cleared or approved by the FDA. [facility] is regulated under CLIA as qualified to perform high-complexity testing. These tests are used for clinical purposes. These should not be regarded as investigational or for research. Positive and negative controls stain appropriately. 09/13/2024 1:33 PM EDT [facility] Blocks or Slides MICROSCOPE SLIDE / Unknown 09/12/2024 5:17 PM EDT 09/12/2024 5:17 PM EDT us Wilder Darby MD SURGICAL PATHOLOGY Final Result [facility] [address] [place] [address], documented in this encounter Visit Diagnoses Diagnosis Person encountering health services to consult on behalf of another person Other person consulting on behalf of another person documented in this encounter Care Teams Field Nurse Relationship Specialty Start Date End Date Duarte Herrmann DO PCP - General Internal Medicine 07/18/13 documented as of this encounter
--- OUTSIDE RECORDS SUMMARY | 2024-10-14 13:48 | XMS_ITS | Encounter Summary ---
Author Organization [facility] Address [address] [place] [address] Care Team Providers Care Monotype Mechanic Name Role Phone Duarte Herrmann DO Primary Care Provider [phone] Encounter Details Date Type Department Care Team (Late Contact Info) Description 10/14/2024 External Result Encounter [facility] Department Unsolicited Nidia Pugh MD [address] [place] [address] Social History Tobacco Use Types Packs/Day Years [...] AM EDT Consult [facility] [address] [phone] Roque Hunter MD [address] [address] 10/31/2024 2:00 PM EDT Office Visit [facility] [address] [place] [address] Duarte Flores DO [address] [place] [address] documented as of this encounter Procedures Procedure Name Priority Date/Time Associated Diagnosis Comments URIC ACID Routine 10/14/2024 8:00 AM EDT LD Routine 10/14/2024 8:00 AM EDT COMPREHENSIVE METABOLIC PANEL Routine 10/14/2024 8:00 AM EDT documented in this encounter Results * (ABNORMAL) Uric acid (10/14/2024 8:00 AM EDT) URIC ACID 3.8(L) 4.4 - 7.6 mg/dL 10/14/2024 9:33 AM EDT [facility] Other Topography unknown / Unknown 10/14/2024 8:00 AM EDT 10/14/2024 8:42 AM EDT Nidia Pugh MD LAB BLOOD ORDERABLES Final Resul t Performing Organization Address [facility]/ZIP Co de Phone Number [place] [phone], [place] [phone] * (ABNORMAL) Lactate dehydrogenase (10/14/2024 8:00 AM EDT) LDH LACTATE DEHYDROGENASE 472(H) 140 - 271 U/L 10/14/2024 9:33 AM EDT [facility] Other Topography unknown / Unknown 10/14/2024 8:00 AM EDT 10/14/2024 8:42 AM EDT us Nidai Pugh MD LAB BLOOD ORDERABLES Final Resul t Performing Organization Address City/[facility]/ZIP Co de Phone Number [address] [address], [place] [phone] * (ABNORMAL) Comprehensive metabolic panel (10/14/2024 8:00 AM EDT) Glucose 85 70 - 100 mg/dL 10/14/2024 9:33 AM EDT [facility] Comment: Random Glucose Reference Range is dependent on time and content of last meal. Glucose of more than 200 mg/dL in a nonstressed, ambulatory subject supports the diagnosis of Diabetes Mellitus. ADA recommended reference range BUN 20 7 - 25 mg/dL 10/14/2024 9:33 AM [facility] CREATININE 0.67(L) 0.70 - 1.30 mg/dL 10/14/2024 9:33 AM [facility] ESTIMATED GFR >60.0 10/14/2024 9:33 AM [facility] Sodium 139 136 - 145 mmol/L 10/14/2024 9:33 AM [facility] Potassium, Bld 4.1 3.5 - 5.1 mmol/L 10/14/2024 9:33 AM [facility] Chloride 103 98 - 107 mmol/L 10/14/2024 9:33 AM [facility] Carbon Dioxide 28.1 21.0 - 31.0 mmol/L 10/14/2024 9:33 AM [facility] Anion Gap 12.0 6.0 - 15.0 10/14/2024 9:33 AM [facility] Calcium 9.2 8.6 - 10.3 mg/dL 10/14/2024 9:33 AM [facility] TOTAL PROTEIN 6.2(L) 6.4 - 8.9 g/dL 10/14/2024 9:33 AM [facility] ALBUMIN LEVEL 3.3(L) 3.5 - 5.7 g/dL 10/14/2024 9:33 AM [facility] GLOBULIN 2.9 g/dL 10/14/2024 9:33 AM [facility] ALBUMIN/GLOBULIN RATIO 1.1 10/14/2024 9:33 AM [facility] BILIRUBIN,TOTAL 0.5 0.3 - 1.0 mg/dL 10/14/2024 9:33 AM [facility] ASPARTATE AMINO TRANSFERASE 16 13 - 39 U/L 10/14/2024 9:33 AM [facility] ALANINE AMINOTRANSFERASE 12 7 - 52 U/L 10/14/2024 9:33 AM [facility] ALKALINE PHOSPHATASE 79 34 - 104 U/L 10/14/2024 9:33 AM EDT [facility] CREATININE CLR [facility] 81.34 10/14/2024 9:33 AM EDT [facility] Other Topography unknown / Unknown 10/14/2024 8:00 AM EDT 10/14/2024 8:42 AM EDT us Nidia Pugh MD LAB BLOOD ORDERABLES Final Resul t Performing Organization Address City/State/[facility] Co de Phone Number [facility]END[facility] [address] [place] [address], [facility] [address] [place] [address] documented in this encounter Visit Diagnoses Not on filedocumented in this encounter Care Teams Monotype Mechanic Relationship Specialty Start Date End Date Duarte Herrmann DO [address] [place] [phone] PCP - General Internal Medicine 07/26/24 documented as of this encounter
--- OUTSIDE RECORDS SUMMARY | 2024-10-14 13:48 | XMS_ITS | Encounter Summary ---
Author Organization [facility] Address [address] [place] [address] Care Team Providers Care Rotary Drill Operator Name Role Phone Duarte Herrmann DO Primary Care Provider [phone] Encounter Details Date Type Department Care Team (Late st Contact Info) Description 2024 Abstract [facility] [address] [place] [address] Duarte Flores, DO [address] [place] [address] Social History Tobacco Use Types Packs/Day Years [...] AM EDT Consult [facility] [address] [phone] Roque Hunter MD [address] [facility] [address] [place] [address] 10/31/2024 2:00 PM EDT Office Visit [facility] [address] [place] [address] Duarte Flores, DO [address] [place] [address] documented as of this encounter Visit Diagnoses Not on filedocumented in this encounter Care Teams Rotary Drill Operator Relationship Specialty Start Date End Date Duarte Herrmann DO [address] [place] [phone] PCP - General Internal Medicine 07/26/24 documented as of this encounter
--- OUTSIDE RECORDS SUMMARY | 2024-10-14 13:48 | XMS_ITS | Clinical Summary ---
Author Organization [employer] Address [id number] [address] [place] [address] Care Team Providers Care Router Setter Name Role Phone Duarte Herrmann Primary Care Provider [phone] Allergies No known active allergies Medications FOLIC [...] Vaccine 2024 Medical Devices Implanted Type Area Loading Machine Operator Helper Device Identifier Shelf Expiration Date Model / Serial / Lot Mesh Open Prgrp Rect 15x9cm - [id number] - [id number] Implanted:Qty: 1 on 05/26/2018 by Vasiliy Hernández MD at [facility] Mesh Right: Inguinal [employer] [facility] 11/08/2022 [id number] / [id number] / [id number] Mesh Pp Macro 15x7.5cm X3 Rpl [id number] - [id number] - [id number] Implanted:Qty: 1 on 05/26/2018 by Vasiliy Hernández MD at [facility] Mesh N/A: Abdomen [employer] [facility] 02/08/2022 [id number] / [id number] / [id number] Mesh Pp Macro 15x7.5cm X3 Rpl [id number] - [id number] - [id number] Implanted:Qty: 1 on 05/26/2018 by Vasiliy Hernández MD at [facility] Mesh Left: Inguinal [employer] [facility] 11/08/2022 [id number] / [id number] / [id number] Insurance Care Teams Router Setter Relationship Specialty Start Date End Date Duarte Herrmann DO [address] [place] [phone] PCP - General Internal Medicine 03/19/18
--- OUTSIDE RECORDS SUMMARY | 2024-10-14 13:48 | XMS_ITS | Encounter Summary ---
Author Organization [facility] Address [address] [place] [address] Care Team Providers Care Catering Convention Services Manager Name Role Phone Duarte Herrmann DO Primary Care Provider [phone] Source Comments In the event this information is protected by the Federal Confidentiality of Alcohol and Drug AbusePatient Records regulations: The Federal rules restrict any use of the information to criminally investigate or prosecute any alcohol or drug abuse patient.[facility] Encounter Details Date Type Department Care Team (Late st Contact Info) Description 09/23/2024 Lab Requisition [facility] [place] [address] Wilder Darby MD [address] [place] [address] Person encountering health services to [...] is lower risk 4 11/24/2022 Data from: https://www.neighborhoodatlas.[facility]/. Last address used for calculation [id number] [place] [address] [address] 11/24/2022 Sex and Gender Information [...] 2:51 PM EDT Brian Hidalgo LPN * Do you have serious difficulty walking or climbing stairs? Answer Date of Assessment Author No 09/01/2013 2:51 PM EDT Brian Hidalgo LPN * Do you have difficulty dressing or bathing? Answer Date of Assessment Author No 09/01/2013 2:51 PM EDT Brian Hidalgo LPN * Because of a physical, mental, or [...] Comments SURGICAL PATHOLOGY REFERENCE LAB CONSULT Routine 09/23/2024 6:44 PM EDT Person encountering health services to consult on behalf of another person FISH FOR AGGRESSIVE B-CELL LYMPHOMA Routine 09/23/2024 6:44 PM EDT Person encountering health services to consult on behalf of another person documented in this encounter Results * FISH FOR AGGRESSIVE B-CELL LYMPHOMA (09/23/2024 6:44 PM EDT) FISH for Aggressive B-cell Lymphoma FISH for Aggressive B-cell Lymphoma Tissue Laboratory Accession Number: [id number] Case: [id number] Block/Part ID: [id number] ([id number]; C1) Sample Type: FFPET Sample Description: LEFT [...] analysis was performed using the following probes ([employer], [place], [place]): LSI MYC dual color, break-apart rearrangement probes; [employer]SI IGH/MYC/CEP8 tricolor, dual fusion probes; LSI BCL2 dual color, break-apart rearrangement probes; and LSI BCL6 dual color, break-apart rearrangement probes. DISCLAIMER: This test was developed and its performance characteristics determined by [facility]'s Pathology and Laboratory Medicine Department. It has not been cleared or approved by the FDA. [facility]'s Pathology and Laboratory Medicine Department is regulated under CLIA as qualified to perform high-complexity testing. This test is used for clinical purposes. It should not be regarded as investigational or for research. Test performed at [facility], [address] [place] [address]. CLIA Number: [id number] Interpretation performed by Elena Carmen MD 09/30/2024 11:23 PM EDT [facility] Blocks or Slides PARAFFIN EMBEDDED TISSUE BLOCK SPECIMEN / Unknown 09/23/2024 6:44 PM EDT 09/27/2024 6:20 PM EDT us Wilder Darby MD LABORATORY Final Result [facility] Desk [address] [place] [address], * SURGICAL PATHOLOGY REFERENCE LAB CONSULT (09/23/2024 6:44 PM EDT) Case Report Surgical Pathology Report Case: [id number] Authorizing Provider: Wilder Darby MD Collected: 09/23/2024 06:44 PM Ordering Location: [facility] Received: 09/23/2024 06:44 PM [facility] Pathologist: Roma Avitia MD Specimen: Block(s) and/or Slide(s), 23 SLIDES 3 BLOCKS (A1 B1 C1;[id number]) 10/05/2024 12:57 PM EDT [facility] FINAL DIAGNOSIS A. 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 - See comment. MMN 09/26/24 10/05/2024 12:57 PM EDT [facility] at 1817 EDT Diagnosis Comment According to the accompanying paperwork, flow cytometry performed on outside specimen A demonstrated a kappa-restricted, [id number]-[id number] B-cell population with increased cell size. By report, flow cytometry performed on outside part B demonstrated a kappa-restricted, [id number]-[id number] B-cell population (13% of sample). A prior needle biopsy of a left neck mass/cervical lymph node demonstrated necrosis and a lymphoplasmacytic and histiocytic infiltrate but was not further diagnostic (see [id number]). The overall morphologic and immunophenotypic features seen [...] Please contact the Hematopathology Consult Service at [phone] for any questions or if additional follow-up information becomes available. 10/05/2024 12:57 PM EDT [facility] Microscopic Description Histologic sections of demonstrate [...] immunohistochemistry and special stains are reviewed at [facility]. Cytokeratin AE1/AE3 is negative. AFB and GMS [...] large B cells. 10/05/2024 12:57 PM EDT [facility] Clinical History CONSULT REQUESTED 10/05/2024 12:57 PM T [facility] Performing Lab Diagnostic interpretation performed at: [facility], [address] [place] [address], [place] [address] CLIA# [id number] Fiber Locking Supervisor: Klever Stein MD 10/05/2024 12:57 PM EDT [facility] Addendum Aggressive B-Cell Neoplasm Biomarker Template 2021 ICC Diagnosis: Diffuse large B-cell lymphoma, not otherwise specified. WHO 5th ed. Diagnosis: Diffuse large B-cell lymphoma, not otherwise specified. 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 MMN 10/03/24 10/05/2024 12:57 PM T [facility] Addendum electronically signed by Roma Avitia MD on 10/03/2024 at 1530 EDT Addendum The purpose of this addendum is to report the results of immunohistochemistry for TdT performed on outside paraffin block C1 at [facility] that was inadvertently omitted from the original microscopic description. TdT is negative. The final diagnosis remains unchanged. MMN 10/05/24 10/05/2024 12:57 PM EDT [facility] Addendum electronically signed by Roma Avitia MD on 10/05/2024 at 1257 EDT Disclaimer Laboratory Developed Test (LDT) Disclaimer: Performance characteristics of immunohistochemical, immunofluorescent, and chromogenic in-situ hybridization tests have been determined by the performing laboratory within [facility]'s [facility] Pathology and Laboratory Medicine Department ([facility], [facility], [facility], [facility], [facility], [facility], or [facility]) in a manner consistent with CLIA requirements. One or more of these tests may not have been cleared or approved by the FDA. [facility] is regulated under CLIA as qualified to perform high-complexity testing. These tests are used for clinical purposes. These should not be regarded as investigational or for research. Positive and negative controls stain appropriately. 10/05/2024 12:57 PM EDT [facility] Blocks or Slides PARAFFIN EMBEDDED TISSUE BLOCK SPECIMEN / Unknown 09/23/2024 6:44 PM EDT 09/23/2024 6:44 PM EDT Wilder Darby MD SURGICAL PATHOLOGY Edited Result - Final [facility] [address] documented in this encounter Visit Diagnoses Diagnosis Person encountering health services to consult on behalf of another person Other person consulting on behalf of another person documented in this encounter Care Teams Catering Convention Services Manager Relationship Specialty Start Date End Date Duarte Herrmann DO PCP - General Internal Medicine 07/18/13 documented as of this encounter
--- NOTE | 2024-10-14 13:49 | CA_ITS ---
Patient Name: SHIRLEY NIETO MR#: [id number] : 1940 Exam Date: 10/14/2024 Ordering Doctor: DR NICOLE MORAN ECHOCARDIOGRAM REPORT PROCEDURE: CA ECHO DOPPLER COMPLETE INDICATIONS: Encounter for chemotherapy management COMPARISON: None. DESCRIPTION: COMPLETE ECHOCARDIOGRAM Real-time transthoracic echocardiography with 2D, M-mode, spectral and color flow Doppler performed. QUALITY: Technical quality was good. LEFT VENTRICLE: Normal chamber size. Mild concentric left ventricular hypertrophy. LV EF: Global left ventricular systolic function is normal. Visual estimation of left ventricular ejection fraction is 55-60%. No significant wall motion abnormalities. DIASTOLIC: Normal diastolic function. ATRIAL SEPTUM: Inadequately seen. LEFT ATRIUM: Normal chamber size. RIGHT ATRIUM: Mild dilatation. Prominent Eustachian valve (normal variant) is seen in the right atrium RIGHT VENTRICLE: Normal chamber size. Normal right ventricular systolic function. TRICUSPID VALVE: Normal mobility and thickness. No stenosis with trivial regurgitation. No evidence of pulmonary hypertension. RVSP 22mmHg. MITRAL VALVE: Normal mobility and thickness. No evidence of mitral valve stenosis. There is no mitral annular calcification. Mild mitral regurgitation. AORTIC VALVE: Normal trileaflet appearance. Thickened aortic valve. Normal leaflet mobility. No evidence of aortic valve stenosis. No aortic regurgitation. AORTIC ROOT: Mildly dilated measuring 3.7cm. The ascending aorta measures 3.4cm. PULMONIC VALVE: Normal thickness and mobility. No stenosis. Trivial regurgitation. PERICARDIUM: No evidence of pericardial effusion. IVC: Collapses with inspiration. Normal size. STRAIN: Global peak 4CH: -17.0%; 2CH -18.2%; APLAX -21.9%; Global strain (average) -19.0%. No prior studies to compare. CONCLUSION: 1. Global left ventricular systolic function is normal; visually estimated ejection fraction is 50 to 55% 2. Mild left ventricular hypertrophy 3. Normal right ventricular size and systolic function 4. Right atrium is mildly dilated 5. Normal diastolic function 6. Mild mitral regurgitation Adult Echocardiography Procedure Report Left Ventricle LVEDD (3.7 - 5.6 cm): 4.86 cm LVESD (2.2 - 4.0 cm): 3.34 cm LVIVS thickness (0.6 - 1.2 cm): 1.28 cm LVPW thickness (0.5 - 1.0 cm): 1.11 cm e': 0.10 m/s E - e': 6.27 LVOT Max Gradient: 3.92 mm Hg LVOT Area (cm2): 0.99 m/s Peak Velocity (LVOT): 0.99 m/s Mean Velocity (LVOT): 0.68 m/s LVOT Diameter 2.33 cm Left Ventricular Ejection Fraction: 70.39 % Left Atrium LA Volume Index (2D A2C): 30.96 ml/m2 Left Atrium Systolic Dimension: 4.21 cm Mitral Valve MV E to A Ratio: 0.76 MV Max Gradient: MV Mean Gradient: Mitral Valve A-Wave Peak Velocity: 0.84 m/s Mitral Valve E-Wave Peak Velocity: 0.65 m/s Cardiovascular Orifice Area: Right Ventricle RV Internal Diastolic Dimension: 4.00 cm Aorta AO Root Diam: 3.70 cm Ascending Ao Diam: 3.44 cm Aortic Valve AoV Area (Peak Dagoberto): 3.28 cm2, 3.28 cm2 AoV Area (VTI): 3.08 cm2, 3.08 cm2 Deceleration [place]: Pressure Half-Time: Peak Velocity(Antegrade Flow): 1.28 m/s Peak Gradient(Antegrade Flow): 6.58 mm Hg Mean Velocity(Antegrade Flow): 0.90 m/s Mean Gradient(Antegrade Flow): 3.69 mm Hg Velocity Time Integral: 25.89 cm Tricuspid Valve Peak Velocity (Regurgitant Flow): 2.20 m/s, 2.08 m/s, 2.03 m/s Peak Velocity: Pulmonic Valve Mean Gradient: Mean Velocity: Peak Velocity: 0.88 m/s Peak Gradient: 3.06 mm Hg, 3.14 mm Hg Right Atrium Right Atrium Systolic Pressure: 56.03 ml, 56.03 ml Dictated by: Mark Tapia M.D. on 10/14/2024 at 16:23 Approved by: Mark Tapia M.D. on 10/14/2024 at 16:29
--- OUTSIDE RECORDS SUMMARY | 2024-10-14 13:59 | XMS_ITS | CCD ---
Author Organization [facility] Care Team Providers Care Automotive Diagnostic Technician Name Role Phone PHYSICIAN, DEFAULT Unavailable Unavailable PHYSICIAN, DEFAULT Unavailable Unavailable KEN, DR RAMACHANDRAN Attending Unavailable KEN, DR RAMACHANDRAN Consulting Unavailable KEN, DR RAMACHANDRAN Primary Care Unavailable KEN, DR RAMACHANDRAN Admitting Unavailable Duarte Rogers DO Primary Care Provider DO Duarte Rogers Primary Care Provider MD Farhan Bertrand Attending Provider MD Vickey Moeller Attending Provider DO Duarte Rogers Primary Care Provider MD Farhan Bertrand Attending Provider Vickey Moeller Unavailable Duarte Rogers Unavailable DO Duarte Rogers Primary Care Provider MD Farhan Bertrand Attending Provider MESERET Villar Attending Provider DO Duarte Rogers Primary Care Provider MESERET Villar Attending Provider Duarte Rogers DO Primary Care Provider MD Clarke Bertrand Attending Provider [phone] DO Duarte Rogers Primary Care Provider MD Clarke Bertrand Attending Provider [phone] MESERET Villar Attending Provider DO Duarte Rogers Primary Care Provider MD Clarke Bertrand Attending Provider [phone] DO Duarte Rogers Primary Care Provider MD Clarke Bertrand Attending Provider [phone] DO Clemente Flores Attending Provider Ball, DO Ramachandran Primary Care Provider Bedocs, DO Evangelista Solano Attending Provider MD Clarke Bertrand Attending Provider MD Clarke Bertrand Attending Provider Duarte Rogers DO Primary Care Provider Obsandra PLANT ATTENDANT-C, Lashell Magallon Attending Provider Clarke Bertrand MD Attending Provider Duarte Rogers DO Primary Care Provider Clarke Bertrand MD Attending Provider Duarte Rogers DO Primary Care Provider Clarke Bertrand MD Attending Provider [phone] Vickey Moeller MD Attending Provider [phone] Gurinder Bartlett DO Attending Provider Duarte Rogers DO Primary Care Provider Duarte Rogers DO Attending Provider Vickey Moeller MD Other Provider Gurinder Bartlett DO Attending Provider Provider, Outside Attending Provider Unavailable Rex Gates MD Attending Provider Gena Plasencia CMA Attending Provider Unavaila Clarke Chavez MD Attending Provider [phone] Duarte Rogers DO Primary Care Provider Duarte Rogers DO Attending Provider Duarte Rogers DO Primary Care Provider Duarte Flores DO Attending Provider DUARTE FLORES Attending Unavailable MURDUARTE MORRIS W Attending Unavailable MURDUARTE MORRIS W Referring Unavailable DUARTE FLORES W Attending Unavailable Ball Duarte ROCHA Primary Care Provider Duarte Rogers DO Attending Provider [phone] Nidia Pugh MD Attending Provider [phone] Duarte Flores DO Referring Provider Ball, Duarte Primary Care Unavailable Bertrand, Clarke Admitting Unavailable Bertrand, Clarke Attending Unavailable Ball, Duarte Primary Care Unavailable Obermeyer, Lashell L Attending Unavailable Obermeyer, Lashell L Admitting Unavailable Ball, Duarte Admitting Unavailable Ball, Duarte Attending Unavailable Ball, Duarte Primary Care Unavailable Ball, Duarte Primary Care Unavailable Bertrand, Clarke Admitting Unavailable Bertrand, Clarke Attending Unavailable Murcek, Duarte Attending Unavailable Murcek, Duarte Admitting Unavailable Ball, Duarte Primary Care Unavailable Murcek, Duarte Attending Unavailable Murcek, Duarte Admitting Unavailable Ball, Duarte Primary Care Unavailable Ball, Duarte Primary Care Unavailable Ditty, Vickey Cruz Attending Unavailable Dittjakob, Vickey Cruz Admitting Unavailable Ball, Duarte Primary Care Unavailable Gurinder Bartlett Attending Unavailable Gurinder Bartlett Admitting Unavailable Keaton, Nidia Attending Unavailable Keaton, Nidia Admitting Unavailable Murcek, Duarte Referring Unavailable Ball, Duarte Primary Care Unavailable Ball, Duarte Primary Care Unavailable Bertrand, Clarke Admitting Unavailable Bertrand, Clarke Attending Unavailable Rachel Angeles RN Attending Provider Unavailable Allergies Allergy Classification Reported Allergen(s) Allergy Type Date of Onset Reaction(s) Facility (1 source) patient allergy list reviewed by nurse or physicia Propensity to adverse reactions 4 Comment:Done [facility] Other (11 sources) Azithromycin; Translations: [azithromycin] Drug Allergy [address] [facility] (11 sources) cefdinir; Translations: [cefdinir] Drug Allergy [address] [facility] Medications Current Medications Medication Drug Class(es) Dates Sig (Normalized) Sig (Original) Folic Acid unknown (2 sources) take 1 tablet by mouth once daily losartan potassium 25 mg oral tablet (20 sources) Angiotensin 2 Receptor Swati Start: 08-22-2024 End: 08-22-2024 losartan (Cozaar) 25 MG tablet Twice daily 08/22/2024 Active Start: 05-25-2024 End: 07-14-2025 take 1 tablet by mouth once daily Losartan 25 mg tablet Discontinued 25 MG PO 2 times daily May 25, 2024 12:00am August 22, 2024 1:52pm TAKE 1 TABLET BY MOUTH EVERY DAY [...] BY MOUTH EVERY DAY for 90 Active Multivitamin tablet (5 sources) Start: 09-13-2024 take 1 tablet by mouth once daily in the morning Multivitamin tablet Active 1 TAB PO Every morning September 13, 2024 12:00am Complies with drug therapy Start: 09-13-2024 take 1 tablet by mouth once da danica in the morning omeprazole 40 mg delayed release oral capsule (20 sources) Proton Pump Inhibitor Start: 11-18-2023 End: 11-18-2023 omeprazole (PriLOSEC) [address] capsule Twice daily 11/18/2023 Active Start: 10-07-2018 End: 11-18-2023 take 1 capsule by mouth once daily Omeprazole 40 mg Capsule,Delayed Release(Dr/Ec) Discontinued 40 MG PO Daily October 07, 2018 12:00am November 18, 2023 1:25pm Comment on above: Take 40 mg by mouth once daily. ondansetron 8 mg disintegrating oral tablet (2 sources) Serotonin-3 Receptor Antagonist Start: 10-12-2024 take 1 tablet by mouth every eight hours as needed for nausea predniSONE 20 mg oral tablet (4 sources) Start: 10-12-2024 take 1 mg by mouth once daily at mealtime Start: 10-12-2024 take 1 tablet by mouth twice d aily Completed/Discontinued Medications Medication Drug Class(es) Dates Sig (Normalized) Sig (Original) 0.4 ml adalimumab 100 mg/ml prefilled syringe (20 sources) Tumor Necrosis Factor Swati Start: 08-27-2017 End: 09-17-2021 Adalimumab (Humira(Cf)) 40 mg/0.4 mL Syringe Kit Discontinued 0.4 ML SUBCUT As Directed August 27, 2017 12:00am September 17, 2021 11:15am Adalimumab (Humi ra-CD/UC/HS Starter) 40 MG/0.8ML Auto-injector Kit Inject under the skin Active Comment on above: Inject subcutaneousl y. amLODIPine 5 mg oral tablet (20 sources) Dihydropyridine Calcium Channel Swati Start: 11-05-19 End: 09-06-19 take 1 tablet by mouth once daily Amlodipine 5 mg tablet Discontinued 0 .ROUTE .COMPLEX 90 November 05, 2023 1:55pm September 05, 2024 10:13am On Hold: Hold until seen by your [...] 1 tablet Orally Once a day Not-Taking/PRN folic acid 1 mg oral tablet (20 sources) Start: 08-27-2017 End: 10-12-2024 take 1 tablet by mouth once daily in the morning Folic Acid 1 mg Tablet Discontinued 1 MG PO Every morning August 27, 2017 12:00am October 12, 2024 8:53am FOLIC ACID PO Ta ke by mouth Active FOLIC ACID ORAL Take by mouth. 0 Active Comment on above: Take by mouth. 4 ml golimumab 12.5 mg/ml injection (20 sources) Tumor Necrosis Factor Swati Start: 09-17-2021 End: 10-12-2024 Golimumab (Simponi Aria) 12.5 mg/mL Solution Discontinued 175 MG IV EVERY 8 WEEKS September 17, 2021 12:00am October 12, 2024 8:53am administer over 30 mins Start: 09-17-2021 Golimumab [...] loading doses) = 180 mg (4 vials) hydrocortisone acetate 10 mg/ml / pramoxine hydrochloride 10 mg/ml rectal foam (20 sources) Corticosteroid Start: 08-28-19 End: 08-28-19 Hydrocortisone-Pram oxine (Proctofoam Hc) 1-1 % foam Discontinued August 27, 2017 12:00am August 27, 2017 12:55pm methotrexate 2.5 mg oral tablet (20 sources) Folate Analog Metabolic Inhibitor Start: 08-28-19 End: 10-13-19 take 8 tablets by mouth every week Methotrexate Sodium 2.5 mg tablet Discontinued 8 TAB PO every week August 27, 2017 12:00am October 12, 2024 8:53am methotrexate 2.5 MG tablet Take 25 mg by mouth 1 (one) time per week. Active methotrexate 2.5 mg tablet Take by mouth one time only. 0 Active Comment on above: Take by mouth one ti me only. methylPREDNISolone 4 mg oral tablet (18 sources) Corticosteroid Start: 06-07-19 End: 06-14-19 Methylprednisolone 4 mg tablets,dose pack Discontinued 4 MG PO June 06, 2024 12:00am June 13, 2024 6:23pm take 1 tablet by humberto th every twelve hours methylPREDNISolone 4 MG 1 tablet with fo od or milk Orally every 12 hrs Active oseltamivir 75 mg oral capsule (15 sources) Neuraminidase Inhibitor Start: 04-20-2024 End: 05-25-2024 [...] Problem Date Documented Da te Episodic/Chronic Abdominal pain (9 sources) Abdominal pain; Translations: [Unspecified abdominal pain] Onset: 03-31-2013 Episodic Acquired foot deformities (1 source) Left foot drop; Translations: [Foot drop, left foot] Episodic Acute bronchitis (6 sources) Acute bronchitis; Translations: [Acute bronchitis, unspecified] Onset: 03-06-2014 04-20-2024 Episodic Calculus of urinary tract (3 sources) H/O: urinary stone; Translations: [Personal history of urinary calculi] Onset: 02-09-1959 Episodic Chronic obstructive pulmonary disease and bronchiectasis (20 sources) Chronic obstructive pulmonary disease with acute lower respiratory infection; Translations: [Chronic obstructive pulmonary disease with (acute) lower respiratory infection] Onset: 09-12-2024 Resolved: 09-12-2024 07-11-2024 Chronic Gastroduodenal ulcer (except hemorrhage) (2 sources) H/O: peptic ulcer; Translations: [Personal history of peptic ulcer disease] Episodic Hyperplasia of prostate (3 sources) Benign prostatic hypertrophy without outflow obstruction; Translations: [Hypertrophy (benign) of prostate without urinary obstruction and other lower urinary tract symptoms [LUTS]] Onset: 02-21-2016 Chronic Immunizations and screening for infectious disease (1 source) Vaccination given; Translations: [Encounter for immunization] Episodic Influenza (5 sources) Influenza due to other identified influenza virus with other respiratory manifestations; Translations: [Influenza due to identified 2008 H1N1 influenza virus with other respiratory manifestations] 04-20-2024 Episodic Maintenance chemotherapy; radiotherapy (2 sources) Patient encounter status; Translations: [Encounter for antineoplastic chemotherapy] 10-12-2024 Chronic Nausea and vomiting (8 sources) Vomiting; Translations: [Vomiting, unspecified] Episodic Non-Hodgkin`s lymphoma (4 sources) Follicular lymphoma grade IIIa, lymph nodes of head, face, and neck; Translations: [Follicular lymphoma grade IIIa of lymph nodes of head, face, or neck] 10-12-2024 Chronic Other circulatory disease (1 source) History of cardiovascular surgery; Translations: [Presence of other cardiac implants and grafts] Chronic Other disorders of stomach and duodenum (7 sources) Indigestion; Translations: [Functional dyspepsia] Episodic Other disorders of stomach and duodenum (1 source) Functional dyspepsia; Translations: [Indigestion] Episodic Other ear and sense organ disorders (1 source) Sensorineural hearing loss, bilateral; Translations: [Sensorineural hearing loss, bilateral] Chronic Other ear and sense organ disorders (2 sources) Hearing loss of left ear; Translations: [Unspecified hearing loss, left ear] 10-12-2024 Chronic Other gastrointestinal disorders (7 sources) Constipation; Translations: [...] source) Hypoxemia; Translations: [Hypoxemia] 07-13-2024 Episodic Other screening for suspected conditions (not mental disorders or infectious disease) (20 sources) Encounter for screening for malignant neoplasm of prostate; Translations: [Patient encounter status] Onset: 11-12-2020 11-09-2023 Episodic Residual codes; unclassified (5 sources) Localized edema; Translations: [Edema] 05-23-2024 Episodic Unclassified (3 sources) R59.0 - Localized enlarged lymph nodes Unclassified (4 sources) Follicular lymphoma grade IIIa; Translations: [C82.30 - Follicular lymphoma grade IIIa, unspecified site] Past or Other Problems Problem Classification Problem Date Documented Da te Episodic/Chronic Abdominal hernia (18 sources) Inguinal hernia; Translations: [Unilateral inguinal hernia, without obstruction or gangrene, not specified as recurrent] Onset: 9 Resolved: 5 09-12-2024 Episodic Cardiac dysrhythmias (17 sources) Tachycardia; Translations: [Tachycardia, unspecified] Onset: 5 Resolved: 5 07-13-2024 Episodic Coagulation and hemorrhagic disorders (20 sources) Other primary thrombocytopenia; Translations: [Thrombocytopenic disorder] Onset: 0 Resolved: Chronic Conditions associated with dizziness or vertigo (1 source) Dizziness and giddiness; Translations: [Dizziness and giddiness] Onset: 9 Episodic Disorders of lipid metabolism (20 sources) Pure hypercholesterolemia, unspecified; Translations: [Hypercholesterolemia] Onset: 1 Resolved: Chronic Esophageal disorders (20 sources) Gastroesophageal reflux disease; Translations: [Gastro-esophageal reflux disease without esophagitis] Onset: 8 Resolved: Chronic Essential hypertension (20 sources) Essential (primary) hypertension; Translations: [Essential hypertension] Onset: 1 Resolved: Chronic Comment on above: Echo: LVEF 60%, LEN, normal RV size/function - 06/2024 Immunity disorders (20 sources) Immunosuppression; 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, unspecified] Onset: 5 Resolved: 5 07-13-2024 Chronic Lymphadenitis (20 sources) Supraclavicular lymphadenopathy; Translations: [Localized enlarged lymph nodes] Onset: 5 Resolved: 5 08-09-2024 Episodic Comment on above: CT: 5.1cm left supra clavicular adenopathy - 08/2024 CT: 5.1cm left supra clavicular adenopathy - 08/2024,FNA - 08/2024 Malaise and fatigue (17 sources) Fatigue; Translations: [Other fatigue] Onset: Resolved: 07-13-2024 Episodic Osteoarthritis (20 sources) Osteoarthritis of right knee joint; Translations: [Unilateral primary osteoarthritis, right knee] Onset: Resolved: 05-21-2023 Chronic Other aftercare (20 sources) Immunosuppression; 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] Onset: Resolved: 04-20-2024 Episodic Other aftercare (17 sources) Taking high risk medication; Translations: [Other senior care (current) drug therapy] Onset: Resolved: 07-13-2024 Episodic Other gastrointestinal disorders (20 sources) Altered bowel function; Translations: [Other specified symptoms and signs involving the digestive system and abdomen] Onset: Resolved: 10-08-2018 Episodic Other lower respiratory disease (18 sources) Interstitial lung disease; Translations: [Interstitial pulmonary disease, unspecified] Onset: Resolved: 07-06-2024 Chronic Comment on above: CT: lymphadenopathy and B/L parenchymal changes - 06/2024Recommend recheck Other lower respiratory disease (20 sources) Hypoxemia; Translations: [Hypoxemia] Onset: Resolved: 07-11-2024 Episodic Other lower respiratory disease (20 sources) Other nonspecific abnormal finding of lung field; Translations: [Ground glass opacity present on imaging of lung] Onset: Resolved: 08-09-2024 Episodic Comment on above: CT: GGO B/L lung bas e L>R, RML nodule - 06/2024,CT: GGO B/L lung base L>R w/ improvement, RML nodule more prominent - 08/2024 CT: GGO B/L lung bas e L>R, RML nodule - 06/2024,CT: GGO B/L lung base L>R w/ improvement, RML nodule more prominent - 08/2024Repeat Other non-traumatic joint disorders (20 sources) Pain in right shoulder; Translations: [Right shoulder pain] Onset: 5 Resolved: 5 05-18-2023 Episodic Pneumonia (except that caused by tuberculosis or sexually transmitted disease) (20 sources) Pneumonia; Translations: [Pneumonia, unspecified organism] Onset: 5 Resolved: 5 07-11-2024 Episodic Comment on above: 06/2024 Residual codes; unclassified (20 sources) Bilateral lower limb edema; Translations: [Localized edema] Onset: 5 Resolved: 5 05-23-2024 Episodic Rheumatoid arthritis and related disease (20 sources) Rheumatoid arthritis of wrist; 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 [facility] Eosinophils (Bld) [#/Vol] 0.2 10*3/uL 0.0 - 0.45 10*3/uL [facility] Eosinophils/100 WBC Manual cnt (Syn fld) 1.9 % . [facility] Erythrocyte distribution width (RBC) [Ratio] 18 % High 12.0 - 14.8 % [facility] Hematocrit (Bld) [Volume fraction] 37.1 % Low 38.8 - 50.0 % [facility] Hemoglobin (Bld) [Mass/Vol] 12.1 g/dL Low 13.0 - 17.0 g/dL [facility] Interpretation and review of laboratory results Abnormal [facility] Lymphocytes (Bld) [#/Vol] 2.8 10*3/uL 1.00 - 4.8 10*3/uL [facility] Lymphocytes/100 WBC Manual cnt (Syn fld) 30.2 % . [facility] MCH (RBC) [Entitic mass] 28 pg 27.5 - 35.2 pg [facility] MCHC (RBC) [Mass/Vol] 32.7 g/dL 32.5 - 35.6 g/dL [facility] MCV (RBC) [Entitic vol] 85.7 fL 83.5 - 101 fL [facility] Monocytes (Bld) [#/Vol] 1.1 10*3/uL High 0.0 - 0.8 10*3/uL [facility] Monocytes+Macrophages/ 100 WBC Manual cnt (Syn fld) 12 % . [facility] Neutrophils (Bld) [#/Vol] 5.2 10*3/uL 1.8 - 7.7 10*3/uL [facility] Neutrophils/100 WBC Manual cnt (Syn fld) 55.3 % . [facility] NRBC 0.1 /100{WBC} 0 - 0.5 /100{WBC} [facility] Platelet mean volume (Bld) [Entitic vol] 8.4 fL 6.6 - 10.1 fL [facility] Platelets (Bld) [#/Vol] 245 10*3/uL 150 - 450 10*3/uL [facility] RBC LM.HPF (Urine sed) [#/Area] 4.33 10*6/uL 3.90 - 5.60 10*6/uL [facility] WBC (Bld) [#/Vol] 9.4 10*3/uL 4.1 - 10.5 10*3/uL [facility] WBC LM.HPF (Urine sed) [#/Area] 9.4 [CFU]/mL 4.1 - 10.5 [CFU]/mL [facility] Comprehensive metabolic pane dayo 10-14-2024 Albumin [Mass/Vol] 3.3 g/dL Low 3.5 - 5.7 g/dL [facility] Albumin/Globulin [Mass ratio] 1.1 {ratio} [facility] ALP [Catalytic activity/Vol] 79 U/L 34 - 104 U/L [facility] ALT [Catalytic activity/Vol] 12 U/L 7 - 52 U/L [facility] Anion gap [Moles/Vol] 12 mmol/L 6.0 - 15.0 [facility] AST [Catalytic activity/Vol] 16 U/L 13 - 39 U/L [facility] Bilirubin [Mass/Vol] 0.5 mg/dL 0.3 - 1 .0 mg/dL [facility] Calcium [Mass/Vol] 9.2 mg/dL 8.6 - 10. 3 mg/dL [facility] Chloride [Moles/Vol] 103 mmol/L 98 - 10 7 mmol/L [facility] CO2 [Moles/Vol] 28.1 mmol/L 21.0 - 31.0 mmol/L [facility] Creatinine (U) [Mass/Vol] 0.67 mg/dL Low 0.70 - 1.30 mg/dL [facility] CREATININE CLR CALC PHARMACY 81.34 [facility] ESTIMATED GFR [facility] Globulin (S) [Mass/Vol] 2.9 g/dL [facility] Glucose [Mass/Vol] 85 mg/dL 70 - 100 mg/dL [facility] Comment on above: Random Glucose Refer ence Range is dependent on time and content of last meal. Glucose of more than 200 mg/dL in a nonstressed, ambulatory subject supports the diagnosis of Diabetes Mellitus. ADA recommended reference range Potassium [Moles/Vol] 4.1 mmol/L 3.5 - 5.1 mmol/L [facility] Protein [Mass/Vol] 6.2 g/dL Low 6.4 - 8.9 g/dL [facility] Sodium [Moles/Vol] 139 mmol/L 136 - 145 mmol/L [facility] Urea nitrogen [Mass/Vol] 20 mg/dL 7 - 25 mg/dL [facility] GLUCOSE POCT GLUCOMETERSon 0 10-14-2024 Glucose [Mass/Vol] 95 mg/dL [facility] Comment on above: Random Glucose Refer ence Range is dependent on time and content of last meal. Glucose of more than 200 mg/dL in a nonstressed, ambulatory subject supports the diagnosis of Diabetes Mellitus. [facility] LDH Lactate to pyruvate reac tion [Catalytic activity/Vol]on 10-14-2024 LDH LACTATE DEHYDROGENASE 472 U/L High 140 - 271 U/L [facility] No Panel Informationon 10-14 Interpretation and review of laboratory results Abnormal [facility] Uric acidon 10-14-2024 Urate [Mass/Vol] 3.8 mg/dL Low 4.4 - 7.6 mg/dL [facility] FISH FOR AGGRESSIVE B-CELL L YMPHOMAon 09-23-2024 FISH FOR AGGRESSIVE B-CELL LYMPHOMA Normal [facility] Comment on above: Order Comment: Speci men Type: FORMALIN-FIXED PARAFFIN-EMBEDDED TISSUE SPECIMEN Ordering Facility: [facility] [place] Address: [place] [address] Result Comment: FISH for Aggressive B-cell Lymphoma Tissue Laboratory Accession Number: [id number] Case: [id number] Block/Part ID: [id number] ([id number]; C1) Sample Type: FFPET Sample Description: LEFT CERVICAL LYMPH NODE, LEVEL 5A, EXCISIONAL BIOPSY Received Date: 2024-09-28 12:56:56 Number of nuclei scored: 200 PER PROBE SET RESULT: Result Reference Range BCL6 Rearrangement 2% (0-9%) MYC Rearrangement 3% (0-11%) t(8;14)(q24.21;q32.33) IGH::MYC 0% (0-7%) BCL2 Rearrangement 35% (0-5%) INTERPRETATION: 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 Negative for rearrangements involving the MYC or BCL6 genes. BCL2 translocations and other rearrangements may be seen in follicular lymphoma, diffuse large B-cell lymphoma, or other B-cell non-Hodgkin lymphomas. The most common BCL2 translocation, t(14;18)(q32.33;q21.33), results in an IGH::BCL2 fusion, but other partner genes may also be involved in BCL2 rearrangements. Chromosomal analysis may be helpful in further evaluation, if clinically indicated. Clinical and pathologic correlation is recommended. There is a 12% gain (3 copies) of the MYC (8q24) gene region. Nomenclature: nuc capri(BCL6x2)[146/200],(D8Z1,MYC,IGH)x2[152/200],(MYCx 3)[23/200],(BCL2x2~3)(3'BCL2 con 5'BCL2x1~2)[70/200] METHODOLOGY: Fluorescence in situ hybridization analysis was performed using the following probes ([employer] [place], [place], [place]): LSI MYC dual color, break-apart rearrangement probes; LSI IGH/MYC/CEP8 tricolor, dual fusion probes; LSI BCL2 dual color, break-apart rearrangement probes; and LSI BCL6 dual color, break-apart rearrangement probes. DISCLAIMER: This test was developed and its performance characteristics determined by [facility]'s Pathology and Laboratory Medicine Department. It has not been cleared or approved by the FDA. [facility]'s Pathology and Laboratory Medicine Department is regulated under CLIA as qualified to perform high-complexity testing. This test is used for clinical purposes. It should not be regarded as investigational or for research. Test performed at [facility], [address] [place] [address]. CLIA Number: [id number] Interpretation performed by Elena Carmen MD Performed By: #### F ABCEL #### CLARITY ILLUMINA LIMS CLIA [id number] [address] [place], [place] [address]K [address] [facility] SURGICAL PATHOLOGY REFERENCE LAB CONSULTon 09-23-2024 ADDENDUM 1: Normal [facility] Comment on above: Order Comment: Speci men Type: FORMALIN-FIXED PARAFFIN-EMBEDDED TISSUE SPECIMEN Ordering Facility: [facility] Address: [address] [place] [address] Result Comment: Aggr essive B-Cell Neoplasm Biomarker Template 2021 ICC Diagnosis: Diffuse large B-cell lymphoma, not otherwise specified. WHO 5th ed. Diagnosis: Diffuse large B-cell lymphoma, not otherwise specified. Biomarker Results: Cell of origin (Janes hvac services professional): Germinal center MYC expression (Positive when >=40% tumor cells by IHC): 20% BCL2 expression (Positive when >=50% tumor cells by IHC): 80% Ki67 expression (% tumor cells by IHC): 80% BCL2 translocation (FISH): Positive BCL6 translocation (FISH): Negative MYC translocation (FISH): Negative IGH::MYC translocation (FISH): Negative Please see the separate FISH reports for complete details of those studies. MMN 10/03/24 Addendum electronically signed by Roma Avitia MD on 10/03/2024 at 1530 EDT Performed By: #### L [id number] #### [facility] CLIA [id number] [address] [place] [address] [place] ADDENDUM 2: Normal [facility] Comment on above: Order Comment: Speci men Type: FORMALIN-FIXED PARAFFIN-EMBEDDED TISSUE SPECIMEN Ordering Facility: [facility] Address: [place] [id number] Result Comment: The purpose of this addendum is to report the results of immunohistochemistry for TdT performed on outside paraffin block C1 at [facility] that was inadvertently omitted from the original microscopic description. TdT is negative. The final diagnosis remains unchanged. MMN 10/05/24 Addendum electronically signed by Roma Avitia MD on 10/05/2024 at 1257 EDT Performed By: #### L [id number] #### [facility] CLIA [id number] [address] [place] [address] [place] AP DISCLAIMER Normal [facility] Comment on above: Order Comment: Speci men Type: FORMALIN-FIXED PARAFFIN-EMBEDDED TISSUE SPECIMEN Ordering Facility: [facility] Address: [place] [id number] Result Comment: Magdalena tabor Developed Test (LDT) Disclaimer: Performance characteristics of immunohistochemical, immunofluorescent, and chromogenic in-situ hybridization tests have been determined by the performing laboratory within [facility]'s [facility] Pathology and Laboratory Medicine Department ([facility], [facility], [facility], [facility], [facility], [facility], or [facility]) in a manner consistent with CLIA requirements. One or more of these tests may not have been cleared or approved by the FDA. RT-PLM is regulated under CLIA as qualified to perform high-complexity testing. These tests are used for clinical purposes. These should not be regarded as investigational or for research. Positive and negative controls stain appropriately. Performed By: #### L [id number] #### [facility] CLIA [id number] [address] [place] [address] [place] CASE REPORT Normal [facility] Comment on above: Order Comment: Speci men Type: FORMALIN-FIXED PARAFFIN-EMBEDDED TISSUE SPECIMEN Ordering Facility: [facility] Address: [facility] [place] [address] Result Comment: Surg [facility] Pathology Report Case: [id number] Authorizing Provider: Wilder Darby MD Collected: 09/23/2024 06:44 PM Ordering Location: [facility] Received: 09/23/2024 06:44 PM [facility] Pathologist: Roma Avitia MD Specimen: Block(s) and/or Slide(s), 23 SLIDES 3 BLOCKS (A1 B1 C1;[id number]) Performed By: #### L [id number] #### [facility] CLIA [id number] [address] [place] [address] [place] CLINICAL HISTORY CONSULT REQUESTED [facility] Comment on above: Order Comment: Speci men Type: FORMALIN-FIXED PARAFFIN-EMBEDDED TISSUE SPECIMEN Ordering Facility: [facility] Address: [address] [place], [place] [address] [address] Performed By: #### L [id number] #### [facility] CLIA [id number] [address] [place] [address] [place] DIAGNOSIS COMMENT Normal [facility] Comment on above: Order Comment: Speci men Type: FORMALIN-FIXED PARAFFIN-EMBEDDED TISSUE SPECIMEN Ordering Facility: [facility] Address: [facility] [place] [address] Result Comment: Acco rding to the accompanying paperwork, flow cytometry performed on outside specimen A demonstrated a kappa-restricted, EY29-[id number] B-cell population with increased cell size. By report, flow cytometry performed on outside part B demonstrated a kappa-restricted, [id number]-[id number] B-cell population (13% of sample). A prior needle biopsy of a left neck mass/cervical lymph node demonstrated necrosis and a lymphoplasmacytic and histiocytic infiltrate but was not further diagnostic (see [id number]). The overall morphologic and immunophenotypic features seen [...] This case was also reviewed by Dr. Bentely Drummond of the section of hematopathology, who agrees with the above rendered final diagnosis. Thank you for sending this case in consultation. Please contact the Hematopathology Consult Service at [phone] for any questions or if additional follow-up information becomes available. Performed By: #### L [id number] #### [facility] CLIA [id number] [address] [place] [address] FINAL DIAGNOSIS Normal [facility] Comment on above: Order Comment: Speci men Type: FORMALIN-FIXED PARAFFIN-EMBEDDED TISSUE SPECIMEN Ordering Facility: [facility] Address: [address] [place] [address] Result Comment: 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 - See comment. MMN 09/26/24 at 1817 EDT Performed By: #### L [id number] #### [facility] CLIA [id number] [address] [place] [address] [facility] FINAL PERFORMING LAB Normal [facility] Comment on above: Order Comment: Speci men Type: FORMALIN-FIXED PARAFFIN-EMBEDDED TISSUE SPECIMEN Ordering Facility: [facility] Address: [address] [place] [address] Result Comment: Diag nostic interpretation performed at: [facility], [address] [place] [address] CLIA# [id number] Organ Pipe Voicer: Klever Stein MD Performed By: #### L [id number] #### [facility] CLIA [id number] [address] [place] [address] [place] MICROSCOPIC DESCRIPTION Normal [facility] Comment on above: Order Comment: Speci men Type: FORMALIN-FIXED PARAFFIN-EMBEDDED TISSUE SPECIMEN Ordering Facility: [facility] [place] Address: [place] [address] Result Comment: Hist ologic sections of demonstrate an enlarged lymph nodes [...] immunohistochemistry and special stains are reviewed at [facility]. Cytokeratin AE1/AE3 is negative. AFB and [...] is negative in the large B cells. Performed By: #### L [id number] #### [facility] CLIA [id number] [address] [place] [address] OF [place] Dayo 09-16-2024 L ------ Specimen: [id number] Received: 09/16/24 Status: JS Alonzo Num: [id number] Spec Type: Surgical Subm Dr: Duarte Flores DO Tissues: A Lymph Node - Biopsy (Needle or Incisional) (L LEVEL 5A CERVICAL LYMPH NO) B Lymph Node - Biopsy (Needle or Incisional) (L LEVEL 4 CERVICAL LYMPH NOD) C Lymph Node - Biopsy (Needle or Incisional) (L LEVEL 5A CERVICAL LYMPH NO) Procedures: HE/13, Gross/Micro L4/3, GMS II Dark, Frozen Section, AE1-AE3/9, -/2, IHC First AB/3, FS HE/2, DIFF QWIK/2, AFB Age/ Patient Sex Location Account Attending Physician Shirley Nieto N 83/M [place] [id number] Duarte Flores DO SPEC NUM: [id number] RECD: 09/16/24 STATUS: JS ALONZO NUM: [id number] BRANDIE: 09/16/[address] [facility] [address]: Duarte Flores DO ENTERED: 09/16/[address]: MERRY TYPE: Surgical DEPT: S ENTERED BY: [id number] RECV BY: [id number] ORDERED: HE/13, Gross/Micro L4/3, GMS II Dark, Frozen Section, AE1-AE3/9, -/2, IHC First AB/3, FS HE/2, DIFF QWIK/2, AFB ORDERED: HE/13, Gross/Micro L4/3, GMS II Dark, Frozen Section, AE1-AE3/9, -/2, IHC First AB/3, FS HE/2, DIFF QWIK/2, AFB Supplemental Report Addendum 2 Entered: 10/04/24-9138 To issue FISH for aggressive B-cell lymphoma from [facility]. See scanned report. 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 Negative for rearrangement involving the MYC or BCL6 genes. Addendum Signed (signature on file) Wilder Darby MD 10/04/24 8723 Addendum 1 Entered: 10/03/24 To issue extradepartmental consultation report from [facility]. Also see scanned report from Dr. Avitia. Specimen: [id number] Received: 09/16/24 Status: JS Alonzo Num: [id number] Spec Type: Surgical Subm Dr: Duarte Flores DO Tissues: A Lymph Node - Biopsy (Needle or Incisional) (L LEVEL 5A CERVICAL LYMPH NO) B Lymph Node - Biopsy (Needle or Incisional) (L LEVEL 4 CERVICAL LYMPH NOD) C Lymph Node - Biopsy (Needle or Incisional) (L LEVEL 5A CERVICAL LYMPH NO) Procedures: HE/13, Gross/Micro L4/3, GMS II Dark, Frozen Section, AE1-AE3/9, -/2, IHC First AB/3, FS HE/2, DIFF QWIK/2, AFB Patient: JaninaemileShirley [id number] (Continued) Specimen: [id number] Received: 09/16/24 (Continued) Supplemental Report (Continued) Signed (signature on file) Wilder Darby MD 09/21/24801 Specimen: [id number] Received: 09/16/24 Status: JS Alonzo Num: [id number] Spec Type: Surgical Subm Dr: Duarte Flores DO Tissues: A Lymph Node - Biopsy (Needle or Incisional) (L LEVEL 5A CERVICAL LYMPH NO) B Lymph Node - Biopsy (Needle or Incisional) (L LEVEL 4 CERVICAL LYMPH NOD) C Lymph Node - Biopsy (Needle or Incisional) (L LEVEL 5A CERVICAL LYMPH NO) Procedures: HE/13, Gross/Micro L4/3, GMS II Dark, Frozen Section, AE1-AE3/9, -/2, IHC First AB/3, FS HE/2, DIFF QWIK/2, AFB Patient: Shirley Nieto [id number] (Continued) Specimen: [id number] Received: 09/16/24 (Continued) Supplemental Report (Continued) Left cervical lymph node, level 5A (A,C) and left cervical lymph node, level 4, excisional biopsy (B): - Mature, 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 - See Comment in scanned report. Addendum Signed (signature on file) Wilder Darby MD 10/03/24 1534 Pathological Diagnosis A. Left cervical lymph node, level 5A, excisional biopsy: - Mature B-cell lymphoproliferative disorder. - Pending extradepartmental consultation. - See Comment. B. Left cervical lymph node, level 4, excisional biopsy: - Mature B-cell lymphoproliferative disorder. - Pending extradepartmental consultation. - See Comment. C. Left cervical lymph node, level 5A, excisional biopsy: - Mature B-cell lymphoprolifera (more content not included)... Normal [facility] SURGICAL PATHOLOGY REFERENCE LAB CONSULTon 09-12-2024 AP DISCLAIMER Normal [facility] Comment on above: Order Comment: Speci men Type: FORMALIN-FIXED PARAFFIN-EMBEDDED TISSUE SPECIMEN Ordering Facility: [facility] Address: [address] [place] [address] [place] [address] Result Comment: Magdalena Brito Test (LDT) Disclaimer: Performance characteristics of immunohistochemical, immunofluorescent, and chromogenic in-situ hybridization tests have been determined by the performing laboratory within [facility]'s [place] Pathology and Laboratory Medicine Department ([facility], [facility], [facility], [facility], [facility], [facility], or [facility]) in a manner consistent with CLIA requirements. One or more of these tests may not have been cleared or approved by the FDA. RT-PLM is regulated under CLIA as qualified to perform high-complexity testing. These tests are used for clinical purposes. These should not be regarded as investigational or for research. Positive and negative controls stain appropriately. Performed By: #### L [id number] #### [facility] CLIA [id number] [address] [place] [address] [place] CASE REPORT Normal [facility] Comment on above: Order Comment: Speci men Type: FORMALIN-FIXED PARAFFIN-EMBEDDED TISSUE SPECIMEN Ordering Facility: [facility] Address: [address] [place], [place] [address] [id number] Result Comment: Surg [facility] Pathology Report Case: [id number] Authorizing Provider: Wilder Darby MD Collected: 09/12/2024 05:17 PM Ordering Location: [facility] Received: 09/12/2024 05:17 PM [facility] Pathologist: Mell Lazo MD Specimen: Slide(s), 20 SLIDES [id number] Performed By: #### L [id number] #### [facility] CLIA [id number] [address] [place] [address] [place] CLINICAL HISTORY CONSULT REQUESTED Normal C [facility] Comment on above: Order Comment: Speci men Type: FORMALIN-FIXED PARAFFIN-EMBEDDED TISSUE SPECIMEN Ordering Facility: [facility] Address: [address] [place], [place] [address] [id number] Performed By: #### L [id number] #### [facility] CLIA [id number] [address] [place] [address] OF [place] DIAGNOSIS COMMENT Normal [facility] Comment on above: Order Comment: Speci men Type: FORMALIN-FIXED PARAFFIN-EMBEDDED TISSUE SPECIMEN Ordering Facility: [facility] Address: [address] [place], [place] [address] [phone] Result Comment: The patient is an 83-year-old man with [...] Please contact the Hematopathology Consult Service at [phone] for any questions or if additional follow-up information becomes available. Performed By: #### L [id number] #### [facility] CLIA [id number] [address] [place] [address] FINAL DIAGNOSIS Normal [facility] Comment on above: Order Comment: Speci men Type: FORMALIN-FIXED PARAFFIN-EMBEDDED TISSUE SPECIMEN Ordering Facility: [facility] Address: [address] [place], [place] [address] [id number] Result Comment: Outs alistair slides from [facility], [place], [place], labeled as [id number], collected on 09/05/2024. A. Left neck mass/cervical lymph node/ultrasound-guided core needle biopsy: - Small limited biopsy cores predominantly showing necrosis and a viable fragment with lymphoplasmacytic and histiocytic infiltrate, not further diagnostic (see comment). September 13, 2024 at 1333 EDT Performed By: #### L [id number] #### [facility] CLIA [id number] [address] [place] [address] FINAL PERFORMING LAB Normal [facility] Comment on above: Order Comment: Speci men Type: FORMALIN-FIXED PARAFFIN-EMBEDDED TISSUE SPECIMEN Ordering Facility: [facility] Address: [facility] [place] [address] Result Comment: Diag nostic interpretation performed at: [facility], [address] [place] [address] CLIA# [id number] Organ Pipe Voicer: Klever Stein MD Performed By: #### L [id number] #### [facility] CLIA [id number] [address] [place] [address] [place] MICROSCOPIC DESCRIPTION Normal [facility] Comment on above: Order Comment: Speci men Type: FORMALIN-FIXED PARAFFIN-EMBEDDED TISSUE SPECIMEN Ordering Facility: [facility] Address: [place] [address] Result Comment: The histologic sections demonstrate very small thin fragmented biopsy cores showing predominantly large areas of necrosis and a single viable biopsy fragment showing a mixed infiltrate comprised of lymphocytes, histiocytes, plasma cells, neutrophils and few eosinophils, and occasional large cells. Immunohistochemical stains received from the referring institution performed on sections from the block [id number], were reviewed at the [facility]. Cytokeratin AE1/AE3, CK5/6, p40, HMB45, S100, desmin, [...] positivity. Flow cytometric immunophenotypic studies performed at [facility] were reported to show no significant lymphoid immunophenotypic abnormalities. 27% lymphocytes were detected with 3.8% polytypic B cells, T cells with no significant abnormalities and a CD4/CD8 ratio of 2.3 and 2.4% NK cells. 73% CD45 negative events/debris was detected. Specimen viability was low at 48%. Performed By: #### L [id number] #### [facility] CLIA [id number] [address] [place] [address] [place] Coagulation Profileon 2024 aPTT Coag (Bld) [Time] 30.9 s Normal 25.1-36.5 [facility] Comment on above: Result Comment: A he matocrit value greater than 55% may lead to inaccurate results in coagulation testing. Patients having hematocrit values >55% require a special collection tube for coagulation studies. Please contact the laboratory at [phone] for redraw instructions. PERFORMED BY: [place] [id number] PATHOLOGIST CONTRACT LOADER JOSÉ LUIS SADLER M.D. Performed By: #### P P, PLT #### [facility] [address] [place], [place] [id number] [facility] INR in Platelet poor plasma by Coagulation assayOrdered By: Duarte Rogers on 09-05-2024 INR Coag (PPP) [Relative time] 1.1 {INR} Normal [facility] Comment on above: INR Therapeutic Rang e A) Pre- and Peroperative OAT started two weeks before surgery. NOT HIP SURGERY: 1.5 - 2.5 HIP SURGERY: 2 - 3B) Primary and secondary prevention of venous THROMBOSIS: 2 - 3C) Active venous thrombosis, pulmonary embolismand prevention of recurrent venous thrombosis: 2 - 3D) Prevention of arterial thromboembolismincluding patients with mechanical heart valves: 3 - 4.5 Result Comment: INR Therapeutic Range A) Pre- and Peroperative OAT started two weeks before surgery. NOT HIP SURGERY: 1.5 - 2.5 HIP SURGERY: 2 - 3 B) Primary and secondary prevention of venous THROMBOSIS: 2 - 3 C) Active venous thrombosis, pulmonary embolism and prevention of recurrent venous thrombosis: 2 - 3 D) Prevention of arterial thromboembolism including patients with mechanical heart valves: 3 - 4.5 Performed By: #### P P, PLT #### [facility] [address] [place], [place] [id number] [place] Dayo 09-05-2024 L ------ Specimen: [id number] Received: 09/05/24 Status: JS Alonzo Num: [id number] Spec Type: Surgical Subm Dr: Gurinder Thompson MD Tissues: A Lymph Node - Biopsy (Needle or Incisional) (CERVICAL LYMPH NODE TISSUE) Procedures: VIMENTIN, S 100, PAS - LGRN, CD45, HE, Gross/Micro L4, GMS II Dark, DESMIN, AE1-AE3, CD10, CD138, CD20, CD21, CD3, CD30, CD5, CD68, CK5 6, Ki-67, SM ACTIN, -, IHC First AB, IHC Add AB/18, HMB45, SOX-10, p40, DIFF QWIK, AFB Age/ Patient Sex Location Account Attending Physician Shirley Nieto/Russ [id number] Duarte Rogers DO SPEC NUM: [id number] RECD: 09/05/24 STATUS: JS ALONZO NUM: [id number] BRANDIE: 09/05/[address] [facility] [address]: Gurinder Thompson MD ENTERED: 09/05/[address] [facility] [address]: Duarte Rogers DO SPEC TYPE: Surgical DEPT: S ENTERED BY: [id number] RECV BY: [id number] ORDERED: VIMENTIN, S 100, PAS - LGRN, CD45, HE, Gross/Micro L4, GMS II Dark, DESMIN, AE1-AE3, CD10, CD138, CD20, CD21, CD3, CD30, CD5, CD68, CK5 6, Ki-67, SM ACTIN, -, IHC First AB, IHC Add AB/18, HMB45, SOX-10, p40, DIFF QWIK, AFB ORDERED: VIMENTIN, S 100, PAS - LGRN, CD45, HE, Gross/Micro L4, GMS II Dark, DESMIN, AE1-AE3, CD10, CD138, CD20, CD21, CD3, CD30, CD5, CD68, CK5 6, Ki-67, SM ACTIN, -, IHC First AB, IHC Add AB/18, IMMUNOHISTOCHEM, HMB45, SOX-10, p40, DIFF QWIK, AFB Supplemental Report Addendum 1 Entered: 09/13/24 To issue extradepartmental consultation from [facility]. Please see scanned consultation report. Left neck mass/cervical lymph node, ultrasound-guided needle biopsy: - Small limited biopsy cores predominantly showing necrosis and a viable fragment with lymphoplasmacytic and histiocytic infiltrate, not further diagnostic. - See Comment. Comment: If clinically indicated, a repeat larger biopsy from a viable area or preferably an excisional biopsy with flow cytometric analysis is recommended for a definitive diagnosis. Specimen: [id number] Received: 09/05/24 Status: JS Davisq Num: [id number] Spec Type: Surgical Subm Dr: Gurinder Thompson MD Tissues: A Lymph Node - Biopsy (Needle or Incisional) (CERVICAL LYMPH NODE TISSUE) Procedures: VIMENTIN, S 100, PAS - LGRN, CD45, HE, Gross/Micro L4, GMS II Dark, DESMIN, AE1-AE3, CD10, CD138, CD20, CD21, CD3, CD30, CD5, CD68, CK5 6, Ki-67, SM ACTIN, -, IHC First AB, IHC Add AB/18, HMB45, SOX-10, p40, DIFF QWIK, AFB Patient: Shirley Nieto [id number] (Continued) Specimen: [id number] Received: 09/05/24 (Continued) Supplemental Report (Continued) Signed (signature on file) Wilder Darby MD 09/09/24 0913 Specimen: [id number] Received: 09/05/24 Status: JS Alonzo Num: [id number] Spec Type: Surgical Subm Dr: Gurinder Thompson MD Tissues: A Lymph Node - Biopsy (Needle or Incisional) (CERVICAL LYMPH NODE TISSUE) Procedures: VIMENTIN, S 100, PAS - LGRN, CD45, HE, Gross/Micro L4, GMS II Dark, DESMIN, AE1-AE3, CD10, CD138, CD20, CD21, CD3, CD30, CD5, CD68, CK5 6, Ki-67, SM ACTIN, -, IHC First AB, IHC Add AB/18, HMB45, SOX-10, p40, DIFF QWIK, AFB Patient: Shirley Nieto My [id number] (Continued) Specimen: [id number] Received: 09/05/24 (Continued) Supplemental Report (Continued) Addendum Signed (signature on file) Wilder Darby MD 09/13/24 1458 Pathological Diagnosis Left neck mass/cervical lymph node, ultrasound-guided needle biopsy: - Soft tissue lesion with necrosis and lymphoplasmacytic infiltrate. - PAS and GMS stains negative for fungal elements. - AFB stain negative for acid-fast organisms. - Pending extradepartmental consultation. - See Comment. Comment: This case has been sent to [facility] for extradepartmental consultation. The final diagnosis will follow upon receipt. Immunohistochemical stains were performed on the tissue block with appropriate staining controls. CD45 highlights lymphoplastic infiltrate in the lesio (more content not included)... Normal [facility] L ------ Specimen: [id number] Received: 09/05/24 Status: JS Davisarely Num: [id number] Spec Type: Cytology Subm Dr: Heladio Rios II, MD Tissues: A FNA SLIDES PATH (LT NECK CERVICAL LYMPH NOD) Procedures: HE/2, Gross/Micro L4, -, DIFF QWIK/3, PAPSTN/4 Age/ Patient Sex Location Account Attending Physician Shirley Nieto [facility] [id number] Duarte Rogers DO SPEC NUM: [id number] RECD: 09/05/24 STATUS: JS ALONZO NUM: [id number] BRANDIE: 09/05/[address] [facility] [address]: Heladio Rios II, MD ENTERED: 09/05/[address] [facility] DR: Duarte Rogers DO SPEC TYPE: Cytology DEPT: CNG ENTERED BY: [id number] RECV BY: [id number] ORDERED: HE/2, Gross/Micro L4, -, DIFF QWIK/3, PAPSTN/4 ORDERED: HE/2, Gross/Micro L4, -, DIFF QWIK/3, PAPSTN/4 Supplemental Report Addendum 1 Entered: 09/07/24 To add findings in the cell block. Left neck mass/cervical lymph node, ultrasound-guided fine needle aspiration (ThinPrep, Cell Block and Smear Slides): - Inadequate for evaluation. - Blood only, nondiagnostic. Addendum Signed (signature on file) Wilder Darby MD 09/07/24 0933 Pathological Diagnosis Left neck mass/cervical lymph node, ultrasound-guided fine needle aspiration (ThinPrep and Smear Slides): - Inadequate for evaluation. - Block only, nondiagnostic. Comment: Please see left neck mass/cervical lymph node ultrasound-guided needle biopsy ([id number]). Specimen: [id number] Received: 09/05/24 Status: JS Alonzo Num: [id number] Spec Type: Cytology Subm Dr: Heladio Rios II, MD Tissues: A FNA SLIDES PATH (LT NECK CERVICAL LYMPH NOD) Procedures: HE/2, Gross/Micro L4, -, DIFF QWIK/3, PAPSTN/4 Patient: Shirley Nieto My [id number] (Continued) Specimen: [id number] Received: 09/05/24 (Continued) Signed (signature on file) Wilder Darby MD 09/06/24 1010 Specimen: [id number] Received: 09/05/24 Status: JS Alonzo Num: [id number] Spec Type: Cytology Subm Dr: Heladio Rios, MD OELKSANDR Tissues: A FNA SLIDES PATH (LT NECK CERVICAL LYMPH NOD) Procedures: HE/2, Gross/Micro L4, -, DIFF QWIK/3, PAPSTN/4 Patient: Shirley Nieto My [id number] (Continued) Specimen: [id number] Received: 09/05/24 (Continued) Clinical Information Enlarged Cervical Lymph Node. Gross Description Received fixed in Cytolyt is 40 ml red opaque fixed fluid for cytology said to have been obtained as Left Neck Cervical Lymph Node. ThinPrep and cell block preparations are prepared for microscopic examination. Also received are 6 total smeared slides for microscopic examination. (/tn) Immediate Evaluation Left neck mass/cervical lymph node, FNA and needle biopsy touch preparation: - FNA Pass #1,#2,#3: Blood only. - Needle biopsy touch preparations: Lymphocytes present, additional core sent to Flow cytology. , 08/16/24 11:25 A.M. Microscopic Description Microscopic examination is performed. CPT Codes 34034, 91205, 53901, 39619 Specimen: [id number] Received: 09/05/24 Status: JS Alonzo Num: [id number] Spec Type: Cytology Subm Dr: Heladio Rios II, MD Tissues: A FNA SLIDES PATH (LT NECK CERVICAL LYMPH NOD) Procedures: HE/2, Gross/Micro L4, -, DIFF QWIK/3, PAPSTN/4 Patient: Shirley Nieto [id number] (Continued) Signed (signature on file) Wilder Darby MD 09/06/24 1010 Normal [facility] Platelets [#/volume] in Bloo d by Automated countOrdered By: Duarte Rogers on 09-05-2024 Platelets (Bld) [#/Vol] 298 10*3/uL Normal 150-450 [facility] Comment on above: Result Comment: PERF ORMED BY: [place] [address] PATHOLOGIST CONTRACT LOADER JOSÉ LUIS SADLER M.D. Performed By: #### P P, PLT #### [facility] [address] [place] [address] Prothrombin time (PT)Ordered By: Duarte Rogers on 09-05-2024 PT Coag (PPP) [Time] 12.2 s Normal 9.0-12.9 [facility] Comment on above: A hematocrit value g reater than 55% may lead to inaccurate results in coagulation testing. Patients having hematocrit values >55% require a special collection tube for coagulation studies. Please contact the laboratory at [phone] for redraw instructions. Result Comment: A he matocrit value greater than 55% may lead to inaccurate results in coagulation testing. Patients having hematocrit values >55% require a special collection tube for coagulation studies. Please contact the laboratory at [phone] for redraw instructions. Performed By: #### P P, PLT #### [address] US needle biopsyon US needle biopsy [facility] Main [place] [id number] Ultrasound Report Signed Patient: Shirley Nieto MR#: [id number] 29 : 1940 Acct:[id number] Age/Sex: 83 / M ADM Date: 09/05/24 Loc: UL Room: [facility] Attending Dr: Duarte Rogers DO Ordering Provider: Duarte Rogers DO Date of Service: 09/05/24 US/US needle biopsy: R59.0 - Localized enlarged lymph nodes ([id number]) US/US needle aspiration: ABNORMAL LYMPH NODE Copies to: Duarte Rogers DO US needle biopsy 09/05/2024 11:33 AM SIGNS AND SYMPTOMS: R59.0 - Localized enlarged lymph nodes INFORMED CONSENT: Reason for procedure was discussed with the patient. The procedure expectations risks benefits options and alternatives were discussed. All the questions were answered. The patient understood the results cannot be guaranteed. The procedure is indicated and risks were acceptable. Consent was obtained. PROCEDURE: Prominent left cervical lymph nodes were visualized using ultrasound imaging. The skin was marked in this location. The skin was prepped and draped in a sterile manner 4 mL of lidocaine 2% was used for local anesthesia. A total of 3 fine needle aspirates were performed using 23-gauge needles. A total of 2 1.5 cm 18-gauge core specimens were obtained using an 18-gauge [employer] biopsy system. The needles were removed and hemostasis was gained using manual pressure. A bandage was placed over the puncture site. The patient tolerated the procedure well. No immediate complications were detected. US/US needle biopsy IMPRESSION: Successful ultrasound-guided fine-needle aspiration and core needle biopsy of large left cervical lymph nodes. Impression dictated by: Heladio Rios M.D. 09/05/2024 7:05 PM Dictation Location: [place] [address] Tech: Anh Allred Transcribed By: LAVONNE 09/05/241904 Dictated By: Heladio Rios II, MD 09/05/241856 Signed By: 09/05/241904 Normal [facility] aPTT in Platelet poor plasma by Coagulation assayOrdered By: Duarte Rogers on 09-05-2024 aPTT Coag (PPP) [Time] 30.9 s 25.1-36.5 [facility] Comment on above: A hematocrit value g reater than 55% may lead to inaccurate results in coagulation testing. Patients having hematocrit values >55% require a special collection tube for coagulation studies. Please contact the laboratory at [phone] for redraw instructions. Alanine aminotransferase [En zymatic activity/volume] in Serum or PlasmaOrdered By: Clarke Bertrand on 08-18-2024 ALT [Catalytic activity/Vol] 16 U/L Normal [facility] Comment on above: Performed By: #### C BC, CMP, ESR #### [address] Albumin [Mass/volume] in Ser um or Plasma by Bromocresol green (BCG) dye binding methoOrdered By: Clarke Bertrand on 08-18-2024 Albumin BCG dye [Mass/Vol] 3.6 g/dL 3.5-5.7 [facility] Alkaline phosphatase [Enzyma tic activity/volume] in Serum or PlasmaOrdered By: Clarke Elza on 08-18-2024 ALP [Catalytic activity/Vol] 79 U/L Normal 34-104 [facility] Comment on above: Result Comment: PERF ORMED BY: [place] [address] PATHOLOGIST CONTRACT LOADER JOSÉ LUIS SADLER M.D. Performed By: #### C BC, CMP, ESR #### [address] Aspartate aminotransferase [ Enzymatic activity/volume] in Serum or PlasmaOrdered By: Clarke Bertrand on 08-18-2024 AST [Catalytic activity/Vol] 20 U/L Normal 13-39 [facility] Comment on above: Performed By: #### C BC, CMP, ESR #### [place] [address] [place] Basophils [#/volume] in Bloo d by Automated countOrdered By: Clarke Bertrand on 08-18-2024 Basophils (Bld) [#/Vol] 0.0 10*3/uL Normal 0.0-0.2 [facility] Comment on above: Performed By: #### C BC, CMP, ESR #### [place] [address] [place] Basophils/100 leukocytes in Blood by Automated countOrdered By: Clarke Bertrand on 08-18-2024 Basophils/100 WBC (Bld) 0.4 % Normal . [facility] Comment on above: Performed By: #### C BC, CMP, ESR #### [place] [address] [place] Bilirubin.total [Mass/volume ] in Serum or PlasmaOrdered By: Clarke Bertrand on 08-18-2024 Bilirubin [Mass/Vol] 0.5 mg/dL Normal 0.3-1.0 [facility] Comment on above: Performed By: #### C BC, CMP, ESR #### [address] Calcium [Mass/volume] in Ser um or PlasmaOrdered By: Clarke Elza on 08-18-2024 Calcium [Mass/Vol] 9.4 mg/dL Normal 8.6-10.3 [facility] Comment on above: Performed By: #### C BC, CMP, ESR #### [address] Carbon dioxide, total [Moles /volume] in Serum or PlasmaOrdered By: Clarke Bertrand on 08-18-2024 CO2 [Moles/Vol] 26.8 mmol/L Normal 21.0-31.0 [facility] Comment on above: Performed By: #### C BC, CMP, ESR #### [address] Chloride [Moles/volume] in S jessica or PlasmaOrdered By: Clarke Bertrand on 08-18-2024 Chloride [Moles/Vol] 104 mmol/L Normal 98-107 [facility] Comment on above: Performed By: #### C BC, CMP, ESR #### [address] Complete Blood Count Auto Di ffon 08-18-2024 Mean Corpuscular HGB Conc 33.3 g/dL Normal 32.5-35.6 [facility] Comment on above: Performed By: #### C BC, CMP, ESR #### [address] NRBC% 0.1 /100{WBC} Normal 0-0.5 [facility] Comment on above: Performed By: #### C BC, CMP, ESR #### [address] White Blood Count 7.0 [CFU]/mL Normal 4.1-10.5 [facility] Comment on above: Performed By: #### C BC, CMP, ESR #### [address] Comprehensive Metabolic Pane dayo 08-18-2024 Albumin [Mass/Vol] 3.6 g/dL Normal 3.5-5.7 [facility] Comment on above: Performed By: #### C BC, CMP, ESR #### [place] [address] [place] GFR/1.73 sq M.predicted MDRD (S/P/Bld) [Vol rate/Area] mL/min/{1.73_m2} Normal [facility] Comment on above: Performed By: #### C BC, CMP, ESR #### [address] Creatinine [Mass/volume] in Serum or PlasmaOrdered By: Clarke Bertrand on 08-18-2024 Creatinine [Mass/Vol] 0.67 mg/dL Low 0.70-1.30 [facility] Comment on above: Performed By: #### C BC, CMP, ESR #### [place] [address] [place] Eosinophils [#/volume] in Bl ood by Automated countOrdered By: Clarkearabella Bertrand on 08-18-2024 Eosinophils (Bld) [#/Vol] 0.2 10*3/uL Normal 0.0-0.45 [facility] Comment on above: Performed By: #### C BC, CMP, ESR #### [place] [address] [place] Eosinophils/100 leukocytes i n Blood by Automated countOrdered By: Clarke Bertrand on 08-18-2024 Eosinophils/100 WBC (Bld) 2.6 % Normal . [facility] Comment on above: Performed By: #### C BC, CMP, ESR #### [place] [address] [place] Erythrocyte Sedimentation Ra basilio 08-18-2024 ESR (Bld) [Velocity] 69 mm/h High 0-19 [facility] Comment on above: Result Comment: PERF ORMED BY: [place] [address] PATHOLOGIST CONTRACT LOADER JOSÉ LUIS S DOROTEO M.D. Performed By: #### C BC, CMP, ESR #### [facility] [address] Erythrocyte distribution wid th [Ratio] by Automated countOrdered By: Clarke Bertrand on 08-18-2024 Erythrocyte distribution width (RBC) [Ratio] 17.9 % High 12.0-14.8 [facility] Comment on above: Performed By: #### C JOS, CMP, ESR #### [facility] [address] Erythrocyte sedimentation ra te by Photometric methodOrdered By: Clarke Bertrand on 08-18-2024 ESR Photometric method (Bld) [Velocity] 69 mm/hr High 0-19 [facility] Erythrocytes [#/volume] in B lood by Automated countOrdered By: Clarke Bertrand on 08-18-2024 RBC (Bld) [#/Vol] 4.28 10*6/uL Normal 3.90-5.60 [facility] Comment on above: Performed By: #### C JOS CMP, ESR #### [address] Glucose [Mass/volume] in Ser um or PlasmaOrdered By: Clarke Bertrand on 08-18-2024 Glucose [Mass/Vol] 95 mg/dL Normal 70-100 [facility] Comment on above: ADA recommended refe rence rangeRandom Glucose Reference Range is dependent on time and content of last meal. Glucose of more than 200 mg/dL in a nonstressed, ambulatory subject supports the diagnosis of Diabetes Mellitus. Result Comment: [place] om Glucose Reference Range is dependent on time and content of last meal. Glucose of more than 200 mg/dL in a nonstressed, ambulatory subject supports the diagnosis of Diabetes Mellitus. ADA recommended reference range Performed By: #### C JOS, CMP, ESR #### [address] Hematocrit [Volume Fraction] of Blood by Automated countOrdered By: Clarke Bertrand on 08-18-2024 Hematocrit (Bld) [Volume fraction] 39.4 % Normal 38.8-50.0 [facility] Comment on above: Performed By: #### C BC, CMP, ESR #### [address] Hemoglobin [Mass/volume] in BloodOrdered By: Clarke Bertrand on 08-18-2024 Hemoglobin (Bld) [Mass/Vol] 13.1 g/dL Normal 13.0-17.0 [facility] Comment on above: Performed By: #### C BC, CMP, ESR #### [address] Leukocytes [#/volume] correc constance for nucleated erythrocytes in Blood by Automated counOrdered By: Clarke Bertrand on 08-18-2024 WBC corrected for nucl RBC Auto (Bld) [#/Vol] 7.0 10*3/uL 4.1-10.5 [facility] Leukocytes [#/volume] in Blo od by Automated countOrdered By: Clarke Bertrand on 08-18-2024 WBC (Bld) [#/Vol] 7.0 10*3/uL Normal 4.1-10.5 [facility] Comment on above: Performed By: #### C BC, CMP, ESR #### [address] Lymphocytes [#/volume] in Bl ood by Automated countOrdered By: Clarke Bertrand on 08-18-2024 Lymphocytes (Bld) [#/Vol] 1.3 10*3/uL Normal 1.00-4.8 [facility] Comment on above: Performed By: #### C BC, CMP, ESR #### [place] [address] [place] Lymphocytes/100 leukocytes i n Blood by Automated countOrdered By: Clarke Bertrand on 08-18-2024 Lymphocytes/100 WBC (Bld) 18.2 % Normal . [facility] Comment on above: Performed By: #### C BC, CMP, ESR #### [address] MCH [Entitic mass] by Automa constance countOrdered By: Clarke Bertrand on 08-18-2024 MCH (RBC) [Entitic mass] 30.7 pg Normal 27.5-35.2 [facility] Comment on above: Performed By: #### C BC, CMP, ESR #### [address] MCHC Auto (RBC) [Mass/Vol]Or dered By: Clarke Bertrand on 08-18-2024 MCHC (RBC) [Mass/Vol] 33.3 g/dL 32.5-35.6 [facility] MCV [Entitic volume] by Auto mated countOrdered By: Clarke Bertrand on 08-18-2024 MCV (RBC) [Entitic vol] 92.0 fL Normal 83.5-101 [facility] Comment on above: Performed By: #### C BC, CMP, ESR #### [address] Monocytes [#/volume] in Bloo d by Automated countOrdered By: Clarke Bertrand on 08-18-2024 Monocytes (Bld) [#/Vol] 1.0 10*3/uL High 0.0-0.8 [facility] Comment on above: Performed By: #### C BC, CMP, ESR #### [place] [address] [place] Monocytes/100 leukocytes in Blood by Automated countOrdered By: Clarke Bertrand on 08-18-2024 Monocytes/100 WBC (Bld) 13.7 % Normal . [facility] Comment on above: Performed By: #### C BC, CMP, ESR #### [place] [address] [place] Neutrophils [#/volume] in Bl ood by Automated countOrdered By: Clarke Bertrand on 08-18-2024 Neutrophils (Bld) [#/Vol] 4.6 10*3/uL Normal 1.8-7.7 [facility] Comment on above: Performed By: #### C BC, CMP, ESR #### [place] [address] [place] Neutrophils/100 leukocytes i n Blood by Automated countOrdered By: Clarke Bertrand on 08-18-2024 Neutrophils/100 WBC (Bld) 65.1 % Normal . [facility] Comment on above: Performed By: #### C BC, CMP, ESR #### [address] No Panel InformationOrdered By: Clarke Elza on 08-18-2024 Estimated GFR (CKD-EPI) > 60.0 mL/Min [facility] Pharmacy Creatinine Clearance (Chem N/A [facility] Nucleated erythrocytes [Pres ence] in Blood by Automated countOrdered By: Clarke Elza on 08-18-2024 Nucleated RBC Auto Ql (Bld) 0.1 /100{WBC} 0-0.5 [facility] Platelet mean volume [Entiti c volume] in Blood by Automated countOrdered By: Clarke Bertrand on 08-18-2024 Platelet mean volume (Bld) [Entitic vol] 8.9 fL Normal 6.6-10.1 [facility] Comment on above: Performed By: #### C BC, CMP, ESR #### [address] Platelets [#/volume] in Bloo d by Automated countOrdered By: Clarke Bertrand on 08-18-2024 Platelets (Bld) [#/Vol] 213 10*3/uL Normal 150-450 [facility] Comment on above: Performed By: #### C BC, CMP, ESR #### [place] [address] [place] Potassium [Moles/volume] in Serum or PlasmaOrdered By: Clarke Bertrand on 08-18-2024 Potassium [Moles/Vol] 4.0 mmol/L Normal 3.5-5.1 [facility] Comment on above: Performed By: #### C BC, CMP, ESR #### [place] [address] [place] Protein [Mass/volume] in Ser um or PlasmaOrdered By: Clarke Bertrand on 08-18-2024 Protein [Mass/Vol] 6.8 g/dL Normal 6.4-8.9 [facility] Comment on above: Performed By: #### C BC, CMP, ESR #### [address] Serum globulin measurement b y calculation (mass/volume)Ordered By: Clarke Bertrand on 08-18-2024 Globulin (S) [Mass/Vol] 3.2 g/dL [facility] Comment on above: Performed By: #### C JOS CMP, ESR #### [address] Serum or plasma albumin/glob ulin mass ratioOrdered By: Clarke Bertrand on 08-18-2024 Albumin/Globulin [Mass ratio] 1.1 {ratio} [facility] Comment on above: Performed By: #### C CUONG ARGUELLO, ESR #### [address] Serum or plasma anion gap de terminationOrdered By: Clarke Bertrand on 08-18-2024 Anion gap [Moles/Vol] 11.2 mmol/L Normal 6.0-15.0 [facility] Comment on above: Performed By: #### C CUONG ARGUELLO, ESR #### [address] Sodium [Moles/volume] in Ser um or PlasmaOrdered By: Clarke Bertrand on 08-18-2024 Sodium [Moles/Vol] 138 mmol/L Normal 136-145 [facility] Comment on above: Performed By: #### C CUONG ARGUELLO, ESR #### [address] Urea nitrogen [Mass/volume] in Serum or PlasmaOrdered By: Clarke Bertrand on 08-18-2024 Urea nitrogen [Mass/Vol] 18 mg/dL Normal 7-25 [facility] Comment on above: Performed By: #### C CUONG ARGUELLO, ESR #### [address] Basophils Auto (Bld) [#/Vol] Ordered By: Duarte Rogers on 08-09-2024 Basophils (Bld) [#/Vol] 0.0 10 3/uL 0.0-0.1 [facility] Basophils/100 WBC Auto (Bld) Ordered By: Duarte oRgers on 08-09-2024 Basophils/100 WBC (Bld) 0.3 % 0.2-2.0 [facility] Eosinophils/100 WBC Auto (Bl d)Ordered By: Duarte Rogers on 08-09-2024 Eosinophils/100 WBC (Bld) 2.1 % 0.9-7.0 [facility] Erythrocyte distribution wid th Auto (RBC) [Ratio]Ordered By: Duarte Rogers on 08-09-2024 Erythrocyte distribution width (RBC) [Ratio] 16.9 % High 11.0-15.0 [facility] Estimated glomerular filtrat ion rate (GFR) non- AmericanOrdered By: Duarte Rogers on 08-09-2024 GFR/1.73 sq M.predicted among non-blacks MDRD (S/P/Bld) [Vol rate/Area] mL/min/{1.73_m2} >=60 mL/min/1.7 3m 2 [facility] Globulin Calc (S) [Mass/Vol] Ordered By: Duarte Rogers on 08-09-2024 Globulin (S) [Mass/Vol] 4.1 g/dL [facility] Hematocrit Auto (Bld) [Volum e fraction]Ordered By: Duarte Rogers on 08-09-2024 Hematocrit (Bld) [Volume fraction] 40.4 % Low 42.0-54.0 [facility] Hemoglobin [Mass/volume] in BloodOrdered By: Duarte Rogers on 08-09-2024 Hemoglobin (Bld) [Mass/Vol] 13.1 g/dL Low 14.0-18.0 [facility] Laboratory - Chemistry and C hemistry - challengeOrdered By: Duarte Rogers on 08-09-2024 Albumin [Mass/Vol] 2.8 g/dL Low 3.4-5.0 [facility] ALP [Catalytic activity/Vol] 98 U/L 46-116 [facility] ALT [Catalytic activity/Vol] 29 U/L 16-63 [facility] AST [Catalytic activity/Vol] 21 U/L 15-37 [facility] Bilirubin [Mass/Vol] 0.5 mg/dL 0.2-1.0 [facility] Calcium [Mass/Vol] 9.5 mg/dL 8.5-10.1 [facility] Chloride [Moles/Vol] 105 mmol/L 98-107 [facility] CO2 [Moles/Vol] 25.9 mmol/L 21.0-32.0 [facility] Creatinine [Mass/Vol] 0.59 mg/dL Low 0.70-1.30 [facility] Free T4 [Mass/Vol] 1.28 ng/dL 0.76-1.46 [facility] GFR/1.73 sq M.predicted MDRD (S/P/Bld) [Vol rate/Area] mL/min/{1.73_m2} >=60 mL/min/1.7 3m 2 [facility] Glucose [Mass/Vol] 95 mg/dL 74-106 [facility] Potassium [Moles/Vol] 3.9 mmol/L 3.5-5.1 [facility] Protein [Mass/Vol] 6.9 g/dL 6.4-8.2 [facility] Sodium [Moles/Vol] 143 mmol/L 136-145 [facility] TSH Qn 2.607 m[IU]/L 0.358-3.74 0 [facility] Urea nitrogen [Mass/Vol] 20.0 mg/dL High 7.0-18.0 [facility] Urea nitrogen/Creatinine [Mass ratio] 33.9 mg/mg [facility] Laboratory - Hematology and Cell countsOrdered By: Duarte Rogers on 08-09-2024 Immature granulocytes/100 WBC (Bld) 0.2 % 0.0-0.5 [facility] Leukocytes [#/volume] correc constance for nucleated erythrocytes in Blood by Automated counOrdered By: Duarte Rogers on 08-09-2024 WBC corrected for nucl RBC Auto (Bld) [#/Vol] 5.8 10 3/uL 4.0-11.0 [facility] Lymphocytes Auto (Bld) [#/Vo l]Ordered By: Duarte Rogers on 08-09-2024 Lymphocytes (Bld) [#/Vol] 1.4 10 3/uL 1.2-3.8 [facility] Lymphocytes/100 WBC Auto (Bl d)Ordered By: Duarte Rogers on 08-09-2024 Lymphocytes/100 WBC (Bld) 24.6 % 20.5-60.0 [facility] MCH Auto (RBC) [Entitic mass ]Ordered By: Duarte Rogers on 08-09-2024 MCH (RBC) [Entitic mass] 30.5 pg 25.9-34.0 [facility] MCHC Auto (RBC) [Mass/Vol]Or dered By: Duarte Rogers on 08-09-2024 MCHC (RBC) [Mass/Vol] 32.4 g/dL 29.9-35.2 [facility] MCV Auto (RBC) [Entitic vol] Ordered By: Duarte Rogers on 08-09-2024 MCV (RBC) [Entitic vol] 94.2 fL High 80.0-94.0 [facility] Monocytes Auto (Bld) [#/Vol] Ordered By: Duarte Rogers on 08-09-2024 Monocytes (Bld) [#/Vol] 0.9 10 3/uL High 0.3-0.8 [facility] Monocytes/100 WBC Auto (Bld) Ordered By: Duarte Rogers on 08-09-2024 Monocytes/100 WBC (Bld) 14.8 % High 1.7-12.0 [facility] Neutrophils Auto (Bld) [#/Vo l]Ordered By: Duarte Rogers on 08-09-2024 Neutrophils (Bld) [#/Vol] 3.4 10 3/uL 1.4-6.5 [facility] [place] Neutrophils/100 WBC Auto (Bl d)Ordered By: Duarte Rogers on 08-09-2024 Neutrophils/100 WBC (Bld) 58.0 % 43.0-75.0 [facility] [place] No Panel InformationOrdered By: Duarte Rogers on 08-09-2024 Eosinophils # (Auto) 0.1 10 3/uL 0.0-0.7 [facility] Immature Granulocyte # (Auto) 0.01 10 3/uL 0.00-0.03 [facility] [place] Total Triiodothyronine 102 ng/dL 71-180 [facility] Comment on above: Performed at: - [facility], [place] [id number] Director: Ky Durham PhD, Phone: [phone] Platelet mean volume Auto (B ld) [Entitic vol]Ordered By: Duarte Rogers on 08-09-2024 Platelet mean volume (Bld) [Entitic vol] 9.6 fL 9.5-13.5 [facility] [place] Platelets Auto (Bld) [#/Vol] Ordered By: Duarte Rogers on 08-09-2024 Platelets (Bld) [#/Vol] 253 10 3/uL 150-450 [facility] [place] RBC Auto (Bld) [#/Vol]Ordere d By: Duarte Rogers on 08-09-2024 RBC (Bld) [#/Vol] 4.29 10 6/uL Low 4.70-6.10 [facility] Serum or plasma albumin/glob ulin mass ratioOrdered By: Duarte Rogers on 08-09-2024 Albumin/Globulin [Mass ratio] 0.7 {ratio} [facility] [place] Serum or plasma anion gap de terminationOrdered By: Duarte Rogers on 08-09-2024 Anion gap [Moles/Vol] 16.0 mmol/L [facility] Basophils Auto (Bld) [#/Vol] on 07-07-2024 Basophils (Bld) [#/Vol] Automated basophil count 0.0-0.1 [facility] Basophils (Bld) [#/Vol] 0.0 10 3/uL 0.0-0.1 [facility] [place] Basophils/100 WBC Auto (Bld) on 07-07-2024 Basophils/100 WBC (Bld) Automated basophil % 0.2-2.0 [facility] [place] Basophils/100 WBC (Bld) 0.2 % 0.2-2.0 [facility] [place] Eosinophils/100 WBC Auto (Bl d)on 07-07-2024 Eosinophils/100 WBC (Bld) Automated eosinophil % Low 0.9-7.0 [facility] [place] Eosinophils/100 WBC (Bld) 0.0 % Low 0.9-7.0 [facility] [place] Erythrocyte distribution wid th Auto (RBC) [Ratio]on 07-07-2024 Erythrocyte distribution width (RBC) [Ratio] Erythrocyte distribution width [Ratio] by Automated count High 11.0-15.0 [facility] [place] Erythrocyte distribution width (RBC) [Ratio] 16.7 % High 11.0-15.0 [facility] [place] Estimated glomerular filtrat ion rate (GFR) non- Americanon 07-07-2024 GFR/1.73 sq M.predicted among non-blacks MDRD (S/P/Bld) [Vol rate/Area] Estimated glomerular filtration rate (GFR) non- >=60 mL/min/1.7 3m 2 [facility] [place] GFR/1.73 sq M.predicted among non-blacks MDRD (S/P/Bld) [Vol rate/Area] mL/min/{1.73_m2} >=60 mL/min/1.7 3m 2 [facility] [place] Globulin Calc (S) [Mass/Vol] on 07-07-2024 Globulin (S) [Mass/Vol] Serum globulin measurement by calculation (mass/volume) [facility] [place] Globulin (S) [Mass/Vol] 3.9 g/dL [facility] [place] Hematocrit Auto (Bld) [Volum e fraction]on 07-07-2024 Hematocrit (Bld) [Volume fraction] Hematocrit [Volume Fraction] of Blood by Automated count Low 42.0-54.0 [facility] [place] Hematocrit (Bld) [Volume fraction] 37.4 % Low 42.0-54.0 [facility] [place] Hemoglobin [Mass/volume] in Bloodon 07-07-2024 Hemoglobin (Bld) [Mass/Vol] Hemoglobin [Mass/volume] in Blood Low 14.0-18.0 [facility] [place] Hemoglobin (Bld) [Mass/Vol] 12.5 g/dL Low 14.0-18.0 [facility] [place] Laboratory - Chemistry and C hemistry - challengeon 07-07-2024 Albumin [Mass/Vol] 2.0 g/dL Low 3.4-5.0 [facility] ALP [Catalytic activity/Vol] 65 U/L 46-116 [facility] [place] ALT [Catalytic activity/Vol] 83 U/L High 16-63 [facility] [place] AST [Catalytic activity/Vol] 51 U/L High 15-37 [facility] [place] Bilirubin [Mass/Vol] 0.4 mg/dL 0.2-1.0 [facility] Calcium [Mass/Vol] 8.8 mg/dL 8.5-10.1 [facility] Chloride [Moles/Vol] 105 mmol/L 98-107 [facility] CO2 [Moles/Vol] 23.3 mmol/L 21.0-32.0 [facility] Creatinine [Mass/Vol] 0.80 mg/dL 0.70-1.30 [facility] GFR/1.73 sq M.predicted MDRD (S/P/Bld) [Vol rate/Area] mL/min/{1.73_m2} >=60 mL/min/1.7 3m 2 [facility] [place] Glucose [Mass/Vol] 145 mg/dL High 74-106 [facility] Magnesium [Mass/Vol] 2.5 mg/dL High 1.8-2.4 [facility] Potassium [Moles/Vol] 3.4 mmol/L Low 3.5-5.1 [facility] Protein [Mass/Vol] 5.9 g/dL Low 6.4-8.2 [facility] Sodium [Moles/Vol] 142 mmol/L 136-145 [facility] Urea nitrogen [Mass/Vol] 35.0 mg/dL High 7.0-18.0 [facility] [place] Urea nitrogen/Creatinine [Mass ratio] 43.8 mg/mg [facility] [place] Laboratory - Hematology and Cell countson 07-07-2024 Immature granulocytes/100 WBC (Bld) 0.8 % High 0.0-0.5 [facility] [place] Leukocytes [#/volume] correc constance for nucleated erythrocytes in Blood by Automated counon 07-07-2024 WBC corrected for nucl RBC Auto (Bld) [#/Vol] Leukocytes [#/volume] corrected for nucleated erythrocytes in Blood by Automated coun .0-11.0 [facility] [place] WBC corrected for nucl RBC Auto (Bld) [#/Vol] 4.8 10 3/uL 4.0-11.0 [facility] [place] Lymphocytes Auto (Bld) [#/Vo l]on 07-07-2024 Lymphocytes (Bld) [#/Vol] Lymphocytes [#/volume] in Blood by Automated count Low 1.2-3.8 [facility] [place] Lymphocytes (Bld) [#/Vol] 0.5 10 3/uL Low 1.2-3.8 [facility] [place] Lymphocytes/100 WBC Auto (Bl d)on 07-07-2024 Lymphocytes/100 WBC (Bld) Lymphocytes/100 leukocytes in Blood by Automated count Low 20.5-60.0 [facility] [place] Lymphocytes/100 WBC (Bld) 11.3 % Low 20.5-60.0 [facility] [place] MCH Auto (RBC) [Entitic mass ]on 07-07-2024 MCH (RBC) [Entitic mass] MCH [Entitic mass] by Automated count 25.9-34.0 [facility] [place] MCH (RBC) [Entitic mass] 30.2 pg 25.9-34.0 [facility] [place] MCHC Auto (RBC) [Mass/Vol]on 07-07-2024 MCHC (RBC) [Mass/Vol] MCHC [Mass/volume] by Automated count 29.9-35.2 [facility] [place] MCHC (RBC) [Mass/Vol] 33.4 g/dL 29.9-35.2 [facility] MCV Auto (RBC) [Entitic vol] on 07-07-2024 MCV (RBC) [Entitic vol] MCV [Entitic volume] by Automated count 80.0-94.0 [facility] [place] MCV (RBC) [Entitic vol] 90.3 fL 80.0-94.0 [facility] [place] Monocytes Auto (Bld) [#/Vol] on 07-07-2024 Monocytes (Bld) [#/Vol] Automated blood monocyte count Low 0.3-0.8 [facility] [place] Monocytes (Bld) [#/Vol] 0.2 10 3/uL Low 0.3-0.8 [facility] [place] Monocytes/100 WBC Auto (Bld) on 07-07-2024 Monocytes/100 WBC (Bld) Automated monocyte % 1.7-12.0 [facility] [place] Monocytes/100 WBC (Bld) 3.8 % 1.7-12.0 [facility] [place] Neutrophils Auto (Bld) [#/Vo l]on 07-07-2024 Neutrophils (Bld) [#/Vol] Neutrophils [#/volume] in Blood by Automated count 1.4-6.5 [facility] [place] Neutrophils (Bld) [#/Vol] 4.0 10 3/uL 1.4-6.5 [facility] [place] Neutrophils/100 WBC Auto (Bl d)on 07-07-2024 Neutrophils/100 WBC (Bld) Automated neutrophil % High 43.0-75.0 [facility] [place] Neutrophils/100 WBC (Bld) 83.9 % High 43.0-75.0 [facility] [place] No Panel Informationon 07-07 Eosinophils # (Auto) 0.0 10 3/uL 0.0-0.7 [facility] Immature Granulocyte # (Auto) 0.04 10 3/uL High 0.00-0.03 [facility] [place] Platelet mean volume Auto (B ld) [Entitic vol]on 07-07-2024 Platelet mean volume (Bld) [Entitic vol] Platelet mean volume [Entitic volume] in Blood by Automated count 9.5-13.5 [facility] [place] Platelet mean volume (Bld) [Entitic vol] 11.2 fL 9.5-13.5 [facility] [place] Platelets Auto (Bld) [#/Vol] on 07-07-2024 Platelets (Bld) [#/Vol] Platelets [#/volume] in Blood by Automated count 150-450 [facility] [place] Platelets (Bld) [#/Vol] 182 10 3/uL 150-450 [facility] [place] RBC Auto (Bld) [#/Vol]on RBC (Bld) [#/Vol] Erythrocytes [#/volu me] in Blood by Automated count Low 4.70-6.10 [facility] [place] RBC (Bld) [#/Vol] 4.14 10 6/uL Low 4.70-6.10 [facility] Serum or plasma albumin/glob ulin mass ratioon 07-07-2024 Albumin/Globulin [Mass ratio] Serum or plasma albumin/globulin mass ratio [facility] [place] Albumin/Globulin [Mass ratio] 0.5 {ratio} [facility] [place] Serum or plasma anion gap de terminationon 07-07-2024 Anion gap [Moles/Vol] Serum or plasma an ion gap determination [facility] [place] Anion gap [Moles/Vol] 17.1 mmol/L [facility] Basophils Auto (Bld) [#/Vol] on 07-06-2024 Basophils (Bld) [#/Vol] Automated basophil count 0.0-0.1 [facility] Basophils (Bld) [#/Vol] 0.0 10 3/uL 0.0-0.1 [facility] [place] Basophils/100 WBC Auto (Bld) on 07-06-2024 Basophils/100 WBC (Bld) Automated basophil % Low 0.2-2.0 [facility] [place] Basophils/100 WBC (Bld) 0.1 % Low 0.2-2.0 [facility] [place] Eosinophils/100 WBC Auto (Bl d)on 07-06-2024 Eosinophils/100 WBC (Bld) Automated eosinophil % Low 0.9-7.0 [facility] [place] Eosinophils/100 WBC (Bld) 0.0 % Low 0.9-7.0 [facility] [place] Erythrocyte distribution wid th Auto (RBC) [Ratio]on 07-06-2024 Erythrocyte distribution width (RBC) [Ratio] Erythrocyte distribution width [Ratio] by Automated count High 11.0-15.0 [facility] [place] Erythrocyte distribution width (RBC) [Ratio] 16.6 % High 11.0-15.0 [facility] [place] Estimated glomerular filtrat ion rate (GFR) non- Americanon 07-06-2024 GFR/1.73 sq M.predicted among non-blacks MDRD (S/P/Bld) [Vol rate/Area] Estimated glomerular filtration rate (GFR) non- >=60 mL/min/1.7 3m 2 [facility] [place] GFR/1.73 sq M.predicted among non-blacks MDRD (S/P/Bld) [Vol rate/Area] mL/min/{1.73_m2} >=60 mL/min/1.7 3m 2 [facility] [place] Globulin Calc (S) [Mass/Vol] on 07-06-2024 Globulin (S) [Mass/Vol] Serum globulin measurement by calculation (mass/volume) [facility] [place] Globulin (S) [Mass/Vol] 4.3 g/dL [facility] [place] Hematocrit Auto (Bld) [Volum e fraction]on 07-06-2024 Hematocrit (Bld) [Volume fraction] Hematocrit [Volume Fraction] of Blood by Automated count Low 42.0-54.0 [facility] [place] Hematocrit (Bld) [Volume fraction] 35.8 % Low 42.0-54.0 [facility] [place] Hemoglobin [Mass/volume] in Bloodon 07-06-2024 Hemoglobin (Bld) [Mass/Vol] Hemoglobin [Mass/volume] in Blood Low 14.0-18.0 [facility] [place] Hemoglobin (Bld) [Mass/Vol] 12.0 g/dL Low 14.0-18.0 [facility] [place] Laboratory - Chemistry and C hemistry - challengeon 07-06-2024 Albumin [Mass/Vol] 2.1 g/dL Low 3.4-5.0 [facility] ALP [Catalytic activity/Vol] 71 U/L 46-116 [facility] [place] ALT [Catalytic activity/Vol] 69 U/L High 16-63 [facility] [place] AST [Catalytic activity/Vol] 64 U/L High 15-37 [facility] [place] Bilirubin [Mass/Vol] 0.5 mg/dL 0.2-1.0 [facility] Calcium [Mass/Vol] 9.3 mg/dL 8.5-10.1 [facility] Chloride [Moles/Vol] 103 mmol/L 98-107 [facility] CO2 [Moles/Vol] 23.3 mmol/L 21.0-32.0 [facility] Creatinine [Mass/Vol] 0.85 mg/dL 0.70-1.30 [facility] GFR/1.73 sq M.predicted MDRD (S/P/Bld) [Vol rate/Area] mL/min/{1.73_m2} >=60 mL/min/1.7 3m 2 [facility] [place] Glucose [Mass/Vol] 145 mg/dL High 74-106 [facility] Magnesium [Mass/Vol] 2.1 mg/dL 1.8-2.4 [facility] Potassium [Moles/Vol] 3.5 mmol/L 3.5-5.1 [facility] Protein [Mass/Vol] 6.4 g/dL 6.4-8.2 [facility] Sodium [Moles/Vol] 138 mmol/L 136-145 [facility] Urea nitrogen [Mass/Vol] 44.0 mg/dL High 7.0-18.0 [facility] [place] Urea nitrogen/Creatinine [Mass ratio] 51.8 mg/mg [facility] [place] Laboratory - Hematology and Cell countson 07-06-2024 Immature granulocytes/100 WBC (Bld) 0.4 % 0.0-0.5 [facility] [place] Leukocytes [#/volume] correc constance for nucleated erythrocytes in Blood by Automated counon 07-06-2024 WBC corrected for nucl RBC Auto (Bld) [#/Vol] Leukocytes [#/volume] corrected for nucleated erythrocytes in Blood by Automated coun 4.0-11.0 [facility] [place] WBC corrected for nucl RBC Auto (Bld) [#/Vol] 8.0 10 3/uL 4.0-11.0 [facility] [place] Lymphocytes Auto (Bld) [#/Vo l]on 07-06-2024 Lymphocytes (Bld) [#/Vol] Lymphocytes [#/volume] in Blood by Automated count Low 1.2-3.8 [facility] [place] Lymphocytes (Bld) [#/Vol] 0.6 10 3/uL Low 1.2-3.8 [facility] [place] Lymphocytes/100 WBC Auto (Bl d)on 07-06-2024 Lymphocytes/100 WBC (Bld) Lymphocytes/100 leukocytes in Blood by Automated count Low 20.5-60.0 [facility] [place] Lymphocytes/100 WBC (Bld) 7.5 % Low 20.5-60.0 [facility] [place] MCH Auto (RBC) [Entitic mass ]on 07-06-2024 MCH (RBC) [Entitic mass] MCH [Entitic mass] by Automated count 25.9-34.0 [facility] [place] MCH (RBC) [Entitic mass] 30.3 pg 25.9-34.0 [facility] [place] MCHC Auto (RBC) [Mass/Vol]on 07-06-2024 MCHC (RBC) [Mass/Vol] MCHC [Mass/volume] by Automated count 29.9-35.2 [facility] [place] MCHC (RBC) [Mass/Vol] 33.5 g/dL 29.9-35.2 [facility] MCV Auto (RBC) [Entitic vol] on 07-06-2024 MCV (RBC) [Entitic vol] MCV [Entitic volume] by Automated count 80.0-94.0 [facility] [place] MCV (RBC) [Entitic vol] 90.4 fL 80.0-94.0 [facility] [place] Monocytes Auto (Bld) [#/Vol] on 07-06-2024 Monocytes (Bld) [#/Vol] Automated blood monocyte count 0.3-0.8 [facility] [place] Monocytes (Bld) [#/Vol] 0.3 10 3/uL 0.3-0.8 [facility] [place] Monocytes/100 WBC Auto (Bld) on 07-06-2024 Monocytes/100 WBC (Bld) Automated monocyte % 1.7-12.0 [facility] [place] Monocytes/100 WBC (Bld) 4.0 % 1.7-12.0 [facility] [place] Neutrophils Auto (Bld) [#/Vo l]on 07-06-2024 Neutrophils (Bld) [#/Vol] Neutrophils [#/volume] in Blood by Automated count High 1.4-6.5 [facility] [place] Neutrophils (Bld) [#/Vol] 7.1 10 3/uL High 1.4-6.5 [facility] [place] Neutrophils/100 WBC Auto (Bl d)on 07-06-2024 Neutrophils/100 WBC (Bld) Automated neutrophil % High 43.0-75.0 [facility] [place] Neutrophils/100 WBC (Bld) 88.0 % High 43.0-75.0 [facility] [place] No Panel Informationon 07-06 Eosinophils # (Auto) 0.0 10 3/uL 0.0-0.7 [facility] Immature Granulocyte # (Auto) 0.03 10 3/uL 0.00-0.03 [facility] [place] Platelet mean volume Auto (B ld) [Entitic vol]on 07-06-2024 Platelet mean volume (Bld) [Entitic vol] Platelet mean volume [Entitic volume] in Blood by Automated count 9.5-13.5 [facility] [place] Platelet mean volume (Bld) [Entitic vol] 10.6 fL 9.5-13.5 [facility] [place] Platelets Auto (Bld) [#/Vol] on 07-06-2024 Platelets (Bld) [#/Vol] Platelets [#/volume] in Blood by Automated count 150-450 [facility] [place] Platelets (Bld) [#/Vol] 175 10 3/uL 150-450 [facility] [place] RBC Auto (Bld) [#/Vol]on RBC (Bld) [#/Vol] Erythrocytes [#/volu me] in Blood by Automated count Low 4.70-6.10 [facility] [place] RBC (Bld) [#/Vol] 3.96 10 6/uL Low 4.70-6.10 [facility] Serum or plasma albumin/glob ulin mass ratioon 07-06-2024 Albumin/Globulin [Mass ratio] Serum or plasma albumin/globulin mass ratio [facility] Albumin/Globulin [Mass ratio] 0.5 {ratio} [facility] [place] Serum or plasma anion gap de terminationon 07-06-2024 Anion gap [Moles/Vol] Serum or plasma an ion gap determination [facility] [place] Anion gap [Moles/Vol] 15.2 mmol/L [facility] Basophils/100 WBC Manual cnt (Bld)on 07-05-2024 Basophils/100 WBC (Bld) Basophils/100 leukocytes in Blood by Manual count Low 0.2-2.0 [facility] [place] Basophils/100 WBC (Bld) 0.0 % Low 0.2-2.0 [facility] [place] Eosinophils/100 WBC Manual c nt (Bld)on 07-05-2024 Eosinophils/100 WBC (Bld) Eosinophils/100 leukocytes in Blood by Manual count Low 0.9-7.0 [facility] [place] Eosinophils/100 WBC (Bld) 0.0 % Low 0.9-7.0 [facility] [place] Erythrocyte distribution wid th Auto (RBC) [Ratio]on 07-05-2024 Erythrocyte distribution width (RBC) [Ratio] Erythrocyte distribution width [Ratio] by Automated count High 11.0-15.0 [facility] [place] Erythrocyte distribution width (RBC) [Ratio] 16.8 % High 11.0-15.0 [facility] [place] Estimated glomerular filtrat ion rate (GFR) non- Americanon 07-05-2024 GFR/1.73 sq M.predicted among non-blacks MDRD (S/P/Bld) [Vol rate/Area] Estimated glomerular filtration rate (GFR) non- Low >=60 mL/min/1.7 3m 2 [facility] [place] GFR/1.73 sq M.predicted among non-blacks MDRD (S/P/Bld) [Vol rate/Area] 55 mL/min/{1.73_m2} Low >=60 mL/min/1.7 3m 2 [facility] [place] Globulin Calc (S) [Mass/Vol] on 07-05-2024 Globulin (S) [Mass/Vol] Serum globulin measurement by calculation (mass/volume) [facility] [place] Globulin (S) [Mass/Vol] 4.7 g/dL [facility] [place] Hematocrit Auto (Bld) [Volum e fraction]on 07-05-2024 Hematocrit (Bld) [Volume fraction] Hematocrit [Volume Fraction] of Blood by Automated count Low 42.0-54.0 [facility] [place] Hematocrit (Bld) [Volume fraction] 37.4 % Low 42.0-54.0 [facility] [place] Hemoglobin [Mass/volume] in Bloodon 07-05-2024 Hemoglobin (Bld) [Mass/Vol] Hemoglobin [Mass/volume] in Blood Low 14.0-18.0 [facility] [place] Hemoglobin (Bld) [Mass/Vol] 12.7 g/dL Low 14.0-18.0 [facility] [place] Laboratory - Chemistry and C hemistry - challengeon 07-05-2024 Albumin [Mass/Vol] 2.2 g/dL Low 3.4-5.0 [facility] ALP [Catalytic activity/Vol] 75 U/L 46-116 [facility] ALT [Catalytic activity/Vol] 72 U/L High 16-63 [facility] AST [Catalytic activity/Vol] 103 U/L High 15-37 [facility] Bilirubin [Mass/Vol] 0.5 mg/dL 0.2-1.0 [facility] Calcium [Mass/Vol] 9.1 mg/dL 8.5-10.1 [facility] Chloride [Moles/Vol] 102 mmol/L 98-107 [facility] CO2 [Moles/Vol] 22.8 mmol/L 21.0-32.0 [facility] Creatinine [Mass/Vol] 1.26 mg/dL 0.70-1.30 [facility] GFR/1.73 sq M.predicted MDRD (S/P/Bld) [Vol rate/Area] mL/min/{1.73_m2} >=60 mL/min/1.7 3m 2 [facility] Glucose [Mass/Vol] 139 mg/dL High 74-106 [facility] Magnesium [Mass/Vol] 1.9 mg/dL 1.8-2.4 [facility] Potassium [Moles/Vol] 3.7 mmol/L 3.5-5.1 [facility] Protein [Mass/Vol] 6.9 g/dL 6.4-8.2 [facility] Sodium [Moles/Vol] 140 mmol/L 136-145 [facility] Urea nitrogen [Mass/Vol] 46.0 mg/dL High 7.0-18.0 [facility] [place] Urea nitrogen/Creatinine [Mass ratio] 36.5 mg/mg [facility] [place] Laboratory - Hematology and Cell countson 07-05-2024 Lymphocytes/100 WBC (Bld) 8.0 % Low 20.5-60.0 [facility] Monocytes/100 WBC (Bld) 3.0 % 1.7-12.0 [facility] [place] Leukocytes [#/volume] correc constance for nucleated erythrocytes in Blood by Automated counon 07-05-2024 WBC corrected for nucl RBC Auto (Bld) [#/Vol] Leukocytes [#/volume] corrected for nucleated erythrocytes in Blood by Automated coun .0-11.0 [facility] WBC corrected for nucl RBC Auto (Bld) [#/Vol] 7.5 10 3/uL 4.0-11.0 [facility] MCH Auto (RBC) [Entitic mass ]on 07-05-2024 MCH (RBC) [Entitic mass] MCH [Entitic mass] by Automated count 25.9-34.0 [facility] MCH (RBC) [Entitic mass] 30.8 pg 25.9-34.0 [facility] MCHC Auto (RBC) [Mass/Vol]on 07-05-2024 MCHC (RBC) [Mass/Vol] MCHC [Mass/volume] by Automated count 29.9-35.2 [facility] MCHC (RBC) [Mass/Vol] 34.0 g/dL 29.9-35.2 [facility] MCV Auto (RBC) [Entitic vol] on 07-05-2024 MCV (RBC) [Entitic vol] MCV [Entitic volume] by Automated count 80.0-94.0 [facility] MCV (RBC) [Entitic vol] 90.8 fL 80.0-94.0 [facility] No Panel Informationon 07-05 Absolute Basophils (Manual) 0.00 10 3/uL 0.00-0.10 [facility] Eosinophils # (Manual) 0.00 10 3/uL 0.00-0.70 [facility] Lymphocytes # (Manual) 0.60 10 3/uL Low 1.20-3.80 [facility] Monocytes # (Manual) 0.22 10 3/uL Low 0.30-0.80 [facility] Segmented Neutrophils # (Manual) 6.67 10 3/uL High 1.4-6.5 [facility] Platelet mean volume Auto (B ld) [Entitic vol]on 07-05-2024 Platelet mean volume (Bld) [Entitic vol] Platelet mean volume [Entitic volume] in Blood by Automated count 9.5-13.5 [facility] Platelet mean volume (Bld) [Entitic vol] 10.8 fL 9.5-13.5 [facility] Platelets Auto (Bld) [#/Vol] on 07-05-2024 Platelets (Bld) [#/Vol] Platelets [#/volume] in Blood by Automated count 150-450 [facility] Platelets (Bld) [#/Vol] 185 10 3/uL 150-450 [facility] RBC Auto (Bld) [#/Vol]on RBC (Bld) [#/Vol] Erythrocytes [#/volu me] in Blood by Automated count Low 4.70-6.10 [facility] RBC (Bld) [#/Vol] 4.12 10 6/uL Low 4.70-6.10 [facility] Segmented neutrophils/100 WB C Manual cnt (Bld)on 07-05-2024 Segmented neutrophils/100 WBC (Bld) Manual blood segmented neutrophils/100 leukocytes High 43.0-75.0 [facility] Segmented neutrophils/100 WBC (Bld) 89.0 % High 43.0-75.0 [facility] Serum or plasma albumin/glob ulin mass ratioon 07-05-2024 Albumin/Globulin [Mass ratio] Serum or plasma albumin/globulin mass ratio [facility] Albumin/Globulin [Mass ratio] 0.5 {ratio} [facility] Serum or plasma anion gap de terminationon 07-05-2024 Anion gap [Moles/Vol] Serum or plasma an ion gap determination [facility] Anion gap [Moles/Vol] 18.9 mmol/L Fi [facility] Basophils/100 WBC Manual cnt (Bld)on 07-04-2024 Basophils/100 WBC (Bld) Basophils/100 leukocytes in Blood by Manual count Low 0.2-2.0 [facility] Basophils/100 WBC (Bld) 0.0 % Low 0.2-2.0 [facility] Eosinophils/100 WBC Manual c nt (Bld)on 07-04-2024 Eosinophils/100 WBC (Bld) Eosinophils/100 leukocytes in Blood by Manual count Low 0.9-7.0 [facility] Eosinophils/100 WBC (Bld) 0.0 % Low 0.9-7.0 [facility] Erythrocyte distribution wid th Auto (RBC) [Ratio]on 07-04-2024 Erythrocyte distribution width (RBC) [Ratio] Erythrocyte distribution width [Ratio] by Automated count High 11.0-15.0 [facility] Erythrocyte distribution width (RBC) [Ratio] 16.5 % High 11.0-15.0 [facility] Estimated glomerular filtrat ion rate (GFR) non- Americanon 07-04-2024 GFR/1.73 sq M.predicted among non-blacks MDRD (S/P/Bld) [Vol rate/Area] Estimated glomerular filtration rate (GFR) non- >=60 mL/min/1.7 3m 2 [facility] GFR/1.73 sq M.predicted among non-blacks MDRD (S/P/Bld) [Vol rate/Area] mL/min/{1.73_m2} >=60 mL/min/1.7 3m 2 [facility] Globulin Calc (S) [Mass/Vol] on 07-04-2024 Globulin (S) [Mass/Vol] Serum globulin measurement by calculation (mass/volume) [facility] Globulin (S) [Mass/Vol] 3.9 g/dL [facility] Hematocrit Auto (Bld) [Volum e fraction]on 07-04-2024 Hematocrit (Bld) [Volume fraction] Hematocrit [Volume Fraction] of Blood by Automated count Low 42.0-54.0 [facility] Hematocrit (Bld) [Volume fraction] 33.4 % Low 42.0-54.0 [facility] Hemoglobin [Mass/volume] in Bloodon 07-04-2024 Hemoglobin (Bld) [Mass/Vol] Hemoglobin [Mass/volume] in Blood Low 14.0-18.0 [facility] Hemoglobin (Bld) [Mass/Vol] 11.5 g/dL Low 14.0-18.0 [facility] Laboratory - Chemistry and C hemistry - challengeon 07-04-2024 Albumin [Mass/Vol] 1.8 g/dL Low 3.4-5.0 [facility] ALP [Catalytic activity/Vol] 64 U/L 46-116 [facility] ALT [Catalytic activity/Vol] 52 U/L 16-63 [facility] AST [Catalytic activity/Vol] 127 U/L High 15-37 [facility] Bilirubin [Mass/Vol] 0.7 mg/dL 0.2-1.0 [facility] Calcium [Mass/Vol] 8.4 mg/dL Low 8.5-10.1 [facility] Chloride [Moles/Vol] 105 mmol/L 98-107 [facility] CO2 [Moles/Vol] 24.4 mmol/L 21.0-32.0 [facility] Creatinine [Mass/Vol] 1.13 mg/dL 0.70-1.30 [facility] GFR/1.73 sq M.predicted MDRD (S/P/Bld) [Vol rate/Area] mL/min/{1.73_m2} >=60 mL/min/1.7 3m 2 [facility] Glucose [Mass/Vol] 82 mg/dL 74-106 [facility] Magnesium [Mass/Vol] 1.7 mg/dL Low 1.8-2.4 [facility] Potassium [Moles/Vol] 4.0 mmol/L 3.5-5.1 [facility] Protein [Mass/Vol] 5.7 g/dL Low 6.4-8.2 [facility] Sodium [Moles/Vol] 140 mmol/L 136-145 [facility] Urea nitrogen [Mass/Vol] 41.0 mg/dL High 7.0-18.0 [facility] Urea nitrogen/Creatinine [Mass ratio] 36.3 mg/mg [facility] Lactate [Moles/Vol] 1.4 mmol/L 0.4-2.0 [facility] Laboratory - Hematology and Cell countson 07-04-2024 Band form neutrophils/100 WBC (Bld) 25.0 % High 0-5 [facility] Lymphocytes/100 WBC (Bld) 19.0 % Low 20.5-60.0 [facility] Monocytes/100 WBC (Bld) 12.0 % 1.7-12.0 [facility] Leukocytes [#/volume] correc constance for nucleated erythrocytes in Blood by Automated counon 07-04-2024 WBC corrected for nucl RBC Auto (Bld) [#/Vol] Leukocytes [#/volume] corrected for nucleated erythrocytes in Blood by Automated coun 4.0-11.0 [facility] WBC corrected for nucl RBC Auto (Bld) [#/Vol] 10.3 10 3/uL 4.0-11.0 [facility] MCH Auto (RBC) [Entitic mass ]on 07-04-2024 MCH (RBC) [Entitic mass] MCH [Entitic mass] by Automated count 25.9-34.0 [facility] MCH (RBC) [Entitic mass] 31.3 pg 25.9-34.0 [facility] MCHC Auto (RBC) [Mass/Vol]on 07-04-2024 MCHC (RBC) [Mass/Vol] MCHC [Mass/volume] by Automated count 29.9-35.2 [facility] MCHC (RBC) [Mass/Vol] 34.4 g/dL 29.9-35.2 [facility] MCV Auto (RBC) [Entitic vol] on 07-04-2024 MCV (RBC) [Entitic vol] MCV [Entitic volume] by Automated count 80.0-94.0 [facility] MCV (RBC) [Entitic vol] 90.8 fL 80.0-94.0 [facility] No Panel Informationon 07-04 Absolute Basophils (Manual) 0.00 10 3/uL 0.00-0.10 [facility] Band Neutrophils # (Manual) 2.6 10 3/uL High 0.0-0.3 [facility] Eosinophils # (Manual) 0.00 10 3/uL 0.00-0.70 [facility] Lymphocytes # (Manual) 1.95 10 3/uL 1.20-3.80 [facility] Monocytes # (Manual) 1.23 10 3/uL High 0.30-0.80 [facility] Segmented Neutrophils # (Manual) 4.53 10 3/uL 1.4-6.5 [facility] C-Reactive Protein, Quantitative 29.92 mg/dL High <=0.50 [facility] Platelet mean volume Auto (B ld) [Entitic vol]on 07-04-2024 Platelet mean volume (Bld) [Entitic vol] Platelet mean volume [Entitic volume] in Blood by Automated count 9.5-13.5 [facility] Platelet mean volume (Bld) [Entitic vol] 10.9 fL 9.5-13.5 [facility] Platelets Auto (Bld) [#/Vol] on 07-04-2024 Platelets (Bld) [#/Vol] Platelets [#/volume] in Blood by Automated count 150-450 [facility] Platelets (Bld) [#/Vol] 152 10 3/uL 150-450 [facility] RBC Auto (Bld) [#/Vol]on RBC (Bld) [#/Vol] Erythrocytes [#/volu me] in Blood by Automated count Low 4.70-6.10 [facility] RBC (Bld) [#/Vol] 3.68 10 6/uL Low 4.70-6.10 [facility] Segmented neutrophils/100 WB C Manual cnt (Bld)on 07-04-2024 Segmented neutrophils/100 WBC (Bld) Manual blood segmented neutrophils/100 leukocytes 43.0-75.0 [facility] Segmented neutrophils/100 WBC (Bld) 44.0 % 43.0-75.0 [facility] Serum or plasma albumin/glob ulin mass ratioon 07-04-2024 Albumin/Globulin [Mass ratio] Serum or plasma albumin/globulin mass ratio [facility] Albumin/Globulin [Mass ratio] 0.5 {ratio} [facility] Serum or plasma anion gap de terminationon 07-04-2024 Anion gap [Moles/Vol] Serum or plasma an ion gap determination [facility] Anion gap [Moles/Vol] 14.6 mmol/L [facility] Basophils Auto (Bld) [#/Vol] on 07-03-2024 Basophils (Bld) [#/Vol] Automated basophil count 0.0-0.1 [facility] Basophils (Bld) [#/Vol] 0.0 10 3/uL 0.0-0.1 [facility] Basophils/100 WBC Auto (Bld) on 07-03-2024 Basophils/100 WBC (Bld) Automated basophil % 0.2-2.0 [facility] Basophils/100 WBC (Bld) 0.2 % 0.2-2.0 [facility] Eosinophils/100 WBC Auto (Bl d)on 07-03-2024 Eosinophils/100 WBC (Bld) Automated eosinophil % Low 0.9-7.0 [facility] Eosinophils/100 WBC (Bld) 0.0 % Low 0.9-7.0 [facility] Erythrocyte distribution wid th Auto (RBC) [Ratio]on 07-03-2024 Erythrocyte distribution width (RBC) [Ratio] Erythrocyte distribution width [Ratio] by Automated count High 11.0-15.0 [facility] Erythrocyte distribution width (RBC) [Ratio] 16.5 % High 11.0-15.0 [facility] Estimated glomerular filtrat ion rate (GFR) non- Americanon 07-03-2024 GFR/1.73 sq M.predicted among non-blacks MDRD (S/P/Bld) [Vol rate/Area] Estimated glomerular filtration rate (GFR) non- Low >=60 mL/min/1.7 3m 2 [facility] GFR/1.73 sq M.predicted among non-blacks MDRD (S/P/Bld) [Vol rate/Area] 52 mL/min/{1.73_m2} Low >=60 mL/min/1.7 3m 2 [facility] Hematocrit Auto (Bld) [Volum e fraction]on 07-03-2024 Hematocrit (Bld) [Volume fraction] Hematocrit [Volume Fraction] of Blood by Automated count Low 42.0-54.0 [facility] Hematocrit (Bld) [Volume fraction] 36.5 % Low 42.0-54.0 [facility] Hemoglobin [Mass/volume] in Bloodon 07-03-2024 Hemoglobin (Bld) [Mass/Vol] Hemoglobin [Mass/volume] in Blood Low 14.0-18.0 [facility] Hemoglobin (Bld) [Mass/Vol] 12.3 g/dL Low 14.0-18.0 [facility] Laboratory - Chemistry and C hemistry - challengeon 07-03-2024 Lactate [Moles/Vol] 1.6 mmol/L 0.4-2.0 [facility] Bilirubin Ql (U) SMALL Abnormal NEGATIVE [facility] Glucose (U) [Mass/Vol] Negative NEGATIVE [facility] Ketones Ql (U) TRACE mg/dL Abnormal NEGATIVE [facility] pH (U) 6.0 [pH] 5.0-9.0 [facility] Specific gravity (U) [Rel density] 1.025 1.005-1.02 5 [facility] Urobilinogen Qn (U) 1.0 {Ren'U}/dL 0.2-1.0 [facility] Calcium [Mass/Vol] 8.7 mg/dL 8.5-10.1 [facility] Chloride [Moles/Vol] 103 mmol/L 98-107 [facility] CO2 [Moles/Vol] 24.2 mmol/L 21.0-32.0 [facility] Creatinine [Mass/Vol] 1.32 mg/dL High 0.70-1.30 [facility] GFR/1.73 sq M.predicted MDRD (S/P/Bld) [Vol rate/Area] mL/min/{1.73_m2} >=60 mL/min/1.7 3m 2 [facility] Glucose [Mass/Vol] 105 mg/dL 74-106 [facility] Potassium [Moles/Vol] 4.1 mmol/L 3.5-5.1 [facility] Sodium [Moles/Vol] 138 mmol/L 136-145 [facility] Urea nitrogen [Mass/Vol] 37.0 mg/dL High 7.0-18.0 [facility] Urea nitrogen/Creatinine [Mass ratio] 28.0 mg/mg [facility] Laboratory - Hematology and Cell countson 07-03-2024 Immature granulocytes/100 WBC (Bld) 1.0 % High 0.0-0.5 [facility] Laboratory - Microbiology an d Antimicrobial susceptibilityon 07-03-2024 SARS-CoV-2 (COVID-19) RNA ELENA+probe Ql (Unsp spec) Negative NEGATIVE [facility] Comment on above: This test has not be en FDA cleared or approved, but has beenauthorized by the FDA under an Emergency Use Authorization(EUA) for use by authorized laboratories certified underCLIA that meet the requirements to perform moderate [...] inform ationon 07-03-2024 Appearance (U) CLEAR CLEAR [facility] Color (U) DK. YELLOW YELLOW [facility] Laboratory - Urinalysison Hyaline casts LM Ql (Urine sed) FEW [facility] Leukocyte esterase Test strip Ql (U) Negative NEGATIVE [facility] Mucus Ql (Urine sed) TRACE Abnormal NONE SEEN [facility] Nitrite Ql (U) Negative NEGATIVE [facility] Protein Ql (U) 30 mg/dL Abnormal NEG/TRACE [facility] Leukocytes [#/volume] correc constance for nucleated erythrocytes in Blood by Automated counon 07-03-2024 WBC corrected for nucl RBC Auto (Bld) [#/Vol] Leukocytes [#/volume] corrected for nucleated erythrocytes in Blood by Automated coun .0-11.0 [facility] WBC corrected for nucl RBC Auto (Bld) [#/Vol] 8.3 10 3/uL 4.0-11.0 [facility] Lymphocytes Auto (Bld) [#/Vo l]on 07-03-2024 Lymphocytes (Bld) [#/Vol] Lymphocytes [#/volume] in Blood by Automated count Low 1.2-3.8 [facility] Lymphocytes (Bld) [#/Vol] 0.9 10 3/uL Low 1.2-3.8 [facility] Lymphocytes/100 WBC Auto (Bl d)on 07-03-2024 Lymphocytes/100 WBC (Bld) Lymphocytes/100 leukocytes in Blood by Automated count Low 20.5-60.0 [facility] Lymphocytes/100 WBC (Bld) 11.0 % Low 20.5-60.0 [facility] MCH Auto (RBC) [Entitic mass ]on 07-03-2024 MCH (RBC) [Entitic mass] MCH [Entitic mass] by Automated count 25.9-34.0 [facility] MCH (RBC) [Entitic mass] 30.8 pg 25.9-34.0 [facility] MCHC Auto (RBC) [Mass/Vol]on 07-03-2024 MCHC (RBC) [Mass/Vol] MCHC [Mass/volume] by Automated count 29.9-35.2 [facility] MCHC (RBC) [Mass/Vol] 33.7 g/dL 29.9-35.2 [facility] MCV Auto (RBC) [Entitic vol] on 07-03-2024 MCV (RBC) [Entitic vol] MCV [Entitic volume] by Automated count 80.0-94.0 [facility] MCV (RBC) [Entitic vol] 91.3 fL 80.0-94.0 [facility] Monocytes Auto (Bld) [#/Vol] on 07-03-2024 Monocytes (Bld) [#/Vol] Automated blood monocyte count 0.3-0.8 [facility] Monocytes (Bld) [#/Vol] 0.3 10 3/uL 0.3-0.8 [facility] Monocytes/100 WBC Auto (Bld) on 07-03-2024 Monocytes/100 WBC (Bld) Automated monocyte % 1.7-12.0 [facility] Monocytes/100 WBC (Bld) 3.4 % 1.7-12.0 [facility] Neutrophils Auto (Bld) [#/Vo l]on 07-03-2024 Neutrophils (Bld) [#/Vol] Neutrophils [#/volume] in Blood by Automated count High 1.4-6.5 [facility] Neutrophils (Bld) [#/Vol] 7.0 10 3/uL High 1.4-6.5 [facility] Neutrophils/100 WBC Auto (Bl d)on 07-03-2024 Neutrophils/100 WBC (Bld) Automated neutrophil % High 43.0-75.0 [facility] Neutrophils/100 WBC (Bld) 84.4 % High 43.0-75.0 [facility] No Panel InformationOrdered By: Rex Gates on 05-25-2025 Anaerobe Identification Only [facility] No Panel Informationon 07-03 Urine Bacteria SMALL #/HPF Abnormal NONE SEEN [facility] Urine Culture Reflexed [facility] [place] [facility] Occult Blood SMALL Abnormal NEGATIVE [facility] Urine Other Casts SEEN #/LPF Abnormal NONE SEEN [facility] Urine Other Crystals None Seen #/HPF None Seen [facility] Urine RBC 2-5 #/HPF Abnormal 0-2 [facility] Urine Squamous Epithelial Cells RARE #/LPF NONE/RARE [facility] Urine WBC 0-2 #/HPF Abnormal NONE SEEN [facility] Eosinophils # (Auto) 0.0 10 3/uL 0.0-0.7 [facility] Immature Granulocyte # (Auto) 0.08 10 3/uL High 0.00-0.03 [facility] Bedside Influenza Type A Antigen Negative [facility] Comment on above: Negative for Flu A p rotein antigen. Infection due to Flu Acannot be ruled out. Flu A antigen in the sample may bebelow the detection limit of the test. Bedside Influenza Type B Antigen Negative [facility] Comment on above: Negative for Flu B p rotein antigen. Infection due to Flu Bcannot be ruled out. Flu B antigen in the sample may bebelow the detection limit of the test. Platelet mean volume Auto (B ld) [Entitic vol]on 07-03-2024 Platelet mean volume (Bld) [Entitic vol] Platelet mean volume [Entitic volume] in Blood by Automated count 9.5-13.5 [facility] Platelet mean volume (Bld) [Entitic vol] 10.6 fL 9.5-13.5 [facility] Platelets Auto (Bld) [#/Vol] on 07-03-2024 Platelets (Bld) [#/Vol] Platelets [#/volume] in Blood by Automated count 150-450 [facility] Platelets (Bld) [#/Vol] 151 10 3/uL 150-450 [facility] RBC Auto (Bld) [#/Vol]on RBC (Bld) [#/Vol] Erythrocytes [#/volu me] in Blood by Automated count Low 4.70-6.10 [facility] RBC (Bld) [#/Vol] 4.00 10 6/uL Low 4.70-6.10 [facility] Serum or plasma anion gap de terminationon 07-03-2024 Anion gap [Moles/Vol] Serum or plasma an ion gap determination [facility] Anion gap [Moles/Vol] 14.9 mmol/L [facility] 07-03-2024 Bacteria identified Cx Nom (U) 20,000 colonies/ml mixed bacterial skin contaminants 2 Days PERFORMED BY: [place] [address] PATHOLOGIST CONTRACT LOADER JOSÉ LUIS SADLER M.D. Normal [facility] Comment on above: Performed By: #### C UU #### [facility] [address] [place] [address] Urine cultureOrdered By: Helio Bartlett on 07-03-2024 Bacteria identified Cx Nom (U) Urine culture [facility] Bacteria identified Cx Nom (U) 2 Days [facility] No Panel InformationOrdered By: Vickey Moeller on 06-06-2024 Miscellaneous Pathology Test See comment [facility] Comment on above: See report. Scanned copy available in EMR. Pathology Request for Lab Co rpon 06-06-2024 Pathology Request for Lab Malina Normal [facility] Comment on above: Order Comment: PATH SPECIMEN- GI Result Comment: See report. Scanned copy available in EMR. PERFORMED BY: [place] [address] PATHOLOGIST CONTRACT LOADER DEE JENNINGS M.D. Performed By: #### P ATH TO [facility] #### [facility] [address] [place] [address] Laboratory - Chemistry and C hemistry - challengeon 05-30-2024 Natriuretic peptide B (Bld) [Mass/Vol] 213.0 pg/mL <=1800.0 [facility] Microalbumin [Mass/volume] i n Urineon 05-30-2024 Albumin DL <= 20 mg/L (U) [Mass/Vol] Microalbumin [Mass/volume] in Urine <=30.0 [facility] Albumin DL <= 20 mg/L (U) [Mass/Vol] 4.9 mg/dL <=30.0 [facility] No Panel Informationon 05-30 Urine Random Creatinine 87.79 mg/dL 20.00-300. 00 [facility] Thyroid stimulating immunogl obulin (TSI) measurementon 05-30-2024 Thyroid stimulating immunoglobulins actual/normal (S) [Relative mass conc] Thyroid stimulating immunoglobulin (TSI) measurement 0.00-0.55 [facility] [place] Comment on above: Performed at: [facility] [address] [id number] Director: Susana Beauchamp MD, Phone: [phone] Thyroid stimulating immunoglobulins actual/normal (S) [Relative mass conc] <0.10 IU/L 0.00-0.55 [facility] [place] Comment on above: Performed at: [facility] [address] [id number] Director: Susana Beauchamp MD, Phone: [phone] Urine microalbumin/creatinin e mass ratioon 05-30-2024 Albumin/Creatinine DL <= 20 mg/L (U) [Mass ratio] Urine microalbumin/creatinine mass ratio High 0.0-29.9 [facility] [place] Comment on above: NO MICROALBUMINURIA 0-29 MG/GCLINICAL MICROALBUMINURIA 30-300 MG/GMACROALBUMINURIA >300 MG/G Albumin/Creatinine DL <= 20 mg/L (U) [Mass ratio] 55.8 mg/g High 0.0-29.9 [facility] [place] Comment on above: NO MICROALBUMINURIA 0-29 MG/GCLINICAL MICROALBUMINURIA 30-300 MG/GMACROALBUMINURIA >300 MG/G Alanine aminotransferase [En zymatic activity/volume] in Serum or PlasmaOrdered By: Clarke Bertrand on 05-11-2024 ALT [Catalytic activity/Vol] Alanine aminotransferase [Enzymatic activity/volume] in Serum or Plasma [facility] [place] Albumin [Mass/volume] in Ser um or Plasma by Bromocresol green (BCG) dye binding methoOrdered By: Clarke Bertrand on 05-11-2024 Albumin BCG dye [Mass/Vol] Albumin [Mass/volume] in Serum or Plasma by Bromocresol green (BCG) dye binding metho 3.5-5.7 [facility] [place] Alkaline phosphatase [Enzyma tic activity/volume] in Serum or PlasmaOrdered By: Clarke Bertrand on 05-11-2024 ALP [Catalytic activity/Vol] Alkaline phosphatase [Enzymatic activity/volume] in Serum or Plasma 34-104 [facility] [place] Aspartate aminotransferase [ Enzymatic activity/volume] in Serum or PlasmaOrdered By: Clarke Bertrand on 05-11-2024 AST [Catalytic activity/Vol] Aspartate aminotransferase [Enzymatic activity/volume] in Serum or Plasma 13-39 [facility] [place] Basophils Auto (Bld) [#/Vol] Ordered By: Clarke Bertrand on 05-11-2024 Basophils (Bld) [#/Vol] Automated basophil count 0.0-0.2 [facility] Basophils/100 WBC Auto (Bld) Ordered By: Clarke Bertrand on 05-11-2024 Basophils/100 WBC (Bld) Automated basophil % . [facility] [place] Bilirubin.total [Mass/volume ] in Serum or PlasmaOrdered By: Clarke Bertrand on 05-11-2024 Bilirubin [Mass/Vol] Bilirubin.total [Mass/volume] in Serum or Plasma 0.3-1.0 [facility] [place] Calcium [Mass/volume] in Ser um or PlasmaOrdered By: Clarke Bertrand on 05-11-2024 Calcium [Mass/Vol] Calcium [Mass/volume ] in Serum or Plasma 8.6-10.3 [facility] [place] Carbon dioxide, total [Moles /volume] in Serum or PlasmaOrdered By: Clarke Bertrand on 05-11-2024 CO2 [Moles/Vol] Carbon dioxide, tota l [Moles/volume] in Serum or Plasma 21.0-31.0 [facility] [place] Chloride [Moles/volume] in S jessica or PlasmaOrdered By: Clarke Bertrand on 05-11-2024 Chloride [Moles/Vol] Chloride [Moles/vol ume] in Serum or Plasma 98-107 [facility] [place] Complete Blood Count Auto Di ffon 05-11-2024 Basophils (Bld) [#/Vol] 0.0 10*3/uL Normal 0.0-0.2 [facility] Comment on above: Performed By: #### C MP, CBC, ESR ####[address] Basophils/100 WBC (Bld) 0.4 % Normal . [facility] Comment on above: Performed By: #### C MP, CBC, ESR ####[address] Eosinophils (Bld) [#/Vol] 0.1 10*3/uL Normal 0.0-0.45 [facility] Comment on above: Performed By: #### C MP, CBC, ESR ####[address] Eosinophils/100 WBC (Bld) 1.3 % Normal . [facility] Comment on above: Performed By: #### C MP, CBC, ESR ####[address] Erythrocyte distribution width (RBC) [Ratio] 18.2 % High 12.0-14.8 [facility] Comment on above: Performed By: #### C MP, CBC, ESR ####[address] Hematocrit (Bld) [Volume fraction] 40.5 % Normal 38.8-50.0 [facility] Comment on above: Performed By: #### C MP, CBC, ESR ####[address] Hemoglobin (Bld) [Mass/Vol] 13.6 g/dL Normal 13.0-17.0 [facility] Comment on above: Performed By: #### C MP, CBC, ESR ####[address] Lymphocytes (Bld) [#/Vol] 1.1 10*3/uL Normal 1.00-4.8 [facility] Comment on above: Performed By: #### C MP, CBC, ESR ####[address] Lymphocytes/100 WBC (Bld) 16.9 % Normal . [facility] Comment on above: Performed By: #### C MP, CBC, ESR ####[address] MCH (RBC) [Entitic mass] 30.5 pg Normal 27.5-35.2 [facility] Comment on above: Performed By: #### C MP, CBC, ESR ####[address] MCV (RBC) [Entitic vol] 91.1 fL Normal 83.5-101 [facility] Comment on above: Performed By: #### C MP, CBC, ESR ####[address] Mean Corpuscular HGB Conc 33.5 g/dL Normal 32.5-35.6 [facility] Comment on above: Performed By: #### C MP, CBC, ESR ####[address] Monocytes (Bld) [#/Vol] 0.9 10*3/uL High 0.0-0.8 [facility] Comment on above: Performed By: #### C MP, CBC, ESR ####[address] Monocytes/100 WBC (Bld) 13.9 % Normal . [facility] Comment on above: Performed By: #### C MP, CBC, ESR ####[address] Neutrophils (Bld) [#/Vol] 4.3 10*3/uL Normal 1.8-7.7 [facility] Comment on above: Performed By: #### C MP, CBC, ESR ####[address] Neutrophils/100 WBC (Bld) 67.5 % Normal . [facility] Comment on above: Performed By: #### C MP, CBC, ESR ####[address] NRBC% 0.1 /100{WBC} Normal 0-0.5 [facility] Comment on above: Performed By: #### C MP, CBC, ESR ####[address] Platelet mean volume (Bld) [Entitic vol] 9.1 fL Normal 6.6-10.1 [facility] Comment on above: Performed By: #### C MP, CBC, ESR ####[address] Platelets (Bld) [#/Vol] 183 10*3/uL Normal 150-450 [facility] Comment on above: Performed By: #### C MP, CBC, ESR ####[address] RBC (Bld) [#/Vol] 4.44 10*6/uL Normal 3.90-5.60 [facility] Comment on above: Performed By: #### C MP, CBC, ESR ####[address] WBC (Bld) [#/Vol] 6.3 10*3/uL Normal 4.1-10.5 [facility] Comment on above: Performed By: #### C MP, CBC, ESR ####[address] Comprehensive Metabolic Pane dayo 05-11-2024 Albumin [Mass/Vol] 3.5 g/dL Normal 3.5-5.7 [facility] Comment on above: Performed By: #### C MP, CBC, ESR ####[address] Albumin/Globulin [Mass ratio] 1.1 {ratio} Normal [facility] Comment on above: Performed By: #### C MP, CBC, ESR ####[address] ALP [Catalytic activity/Vol] 86 U/L Normal 34-104 [facility] Comment on above: Result Comment: PERF ORMED BY: [facility] [address] [id number] PATHOLOGIST CONTRACT LOADER DEE JENNINGS M.D. Performed By: #### C MP, CBC, ESR ####[id number] [place] [address] [facility] ALT [Catalytic activity/Vol] 14 U/L Normal 7-52 [facility] Comment on above: Performed By: #### C MP, CBC, ESR ####[id number] [place] [address] [facility] Anion gap [Moles/Vol] 14.5 mmol/L Normal 6.0-15.0 [facility] Comment on above: Performed By: #### C MP, CBC, ESR ####[address] [id number] [facility] AST [Catalytic activity/Vol] 18 U/L Normal 13-39 [facility] Comment on above: Performed By: #### C MP, CBC, ESR ####[address] [id number] [facility] Bilirubin [Mass/Vol] 0.7 mg/dL Normal 0.3-1.0 [facility] Comment on above: Performed By: #### C MP, CBC, ESR ####[address] [place] [id number] [facility] Calcium [Mass/Vol] 8.7 mg/dL Normal 8.6-10.3 [facility] Comment on above: Performed By: #### C MP, CBC, ESR ####[address] [address] [facility] Chloride [Moles/Vol] 105 mmol/L Normal 98-107 [facility] Comment on above: Performed By: #### C MP, CBC, ESR ####[address] [id number] [facility] CO2 [Moles/Vol] 23.0 mmol/L Normal 21.0-31.0 [facility] Comment on above: Performed By: #### C MP, CBC, ESR ####[facility] [id number] [facility] Creatinine [Mass/Vol] 0.64 mg/dL Low 0.70-1.30 [facility] Comment on above: Performed By: #### C MP, CBC, ESR ####[address] GFR/1.73 sq M.predicted MDRD (S/P/Bld) [Vol rate/Area] mL/min/{1.73_m2} Normal [facility] Comment on above: Performed By: #### C MP, CBC, ESR ####[place] [id number] Globulin (S) [Mass/Vol] 3.1 g/dL Normal [facility] Comment on above: Performed By: #### C MP, CBC, ESR ####[address] Glucose [Mass/Vol] 96 mg/dL Normal 70-100 [facility] Comment on above: Result Comment: [facility] Glucose Reference Range is dependent on time and content of last meal. Glucose of more than 200 mg/dL in a nonstressed, ambulatory subject supports the diagnosis of Diabetes Mellitus. ADA recommended reference range Performed By: #### C MP, CBC, ESR ####[address] Potassium [Moles/Vol] 3.5 mmol/L Normal 3.5-5.1 [facility] Comment on above: Performed By: #### C MP, CBC, ESR ####[address] Protein [Mass/Vol] 6.6 g/dL Normal 6.4-8.9 [facility] Comment on above: Performed By: #### C MP, CBC, ESR ####[place] [id number] [facility] Sodium [Moles/Vol] 139 mmol/L Normal 136-145 [facility] Comment on above: Performed By: #### C MP, CBC, ESR ####[facility] Urea nitrogen [Mass/Vol] 10 mg/dL Normal 7-25 [facility] Comment on above: Performed By: #### C MP, CBC, ESR ####[facility] Creatinine [Mass/volume] in Serum or PlasmaOrdered By: Clarke Bertrand on 05-11-2024 Creatinine [Mass/Vol] Creatinine [Mass/v olume] in Serum or Plasma Low 0.70-1.30 [facility] [place] Eosinophils Auto (Bld) [#/Vo l]Ordered By: Clarke Bertrand on 05-11-2024 Eosinophils (Bld) [#/Vol] Automated eosinophil count 0.0-0.45 [facility] Eosinophils/100 WBC Auto (Bl d)Ordered By: Clarke Bertrand on 05-11-2024 Eosinophils/100 WBC (Bld) Automated eosinophil % . [facility] Erythrocyte Sedimentation Ra basilio 05-11-2024 ESR (Bld) [Velocity] 74 mm/h High 0-19 [facility] Comment on above: Result Comment: PERF ORMED BY: [facility] [address] [place] [address] PATHOLOGIST CONTRACT LOADER DEE JENNINGS M.D. Performed By: #### C MP, CBC, ESR ####[address] [id number] Erythrocyte distribution wid th Auto (RBC) [Ratio]Ordered By: Clarke Bertrand on 05-11-2024 Erythrocyte distribution width (RBC) [Ratio] Erythrocyte distribution width [Ratio] by Automated count High 12.0-14.8 [facility] [place] Erythrocyte sedimentation ra te by Photometric methodOrdered By: Clarke Bertrand on 05-11-2024 ESR Photometric method (Bld) [Velocity] Erythrocyte sedimentation rate by Photometric method High 0-19 [facility] [place] Globulin Calc (S) [Mass/Vol] Ordered By: Clarke Bertrand on 05-11-2024 Globulin (S) [Mass/Vol] Serum globulin measurement by calculation (mass/volume) [facility] [place] Glucose [Mass/volume] in Ser um or PlasmaOrdered By: Clarke Bertrand on 05-11-2024 Glucose [Mass/Vol] Glucose [Mass/volume ] in Serum or Plasma 70-100 [facility] [place] Comment on above: ADA recommended refe rence rangeRandom Glucose Reference Range is dependent on time and content of last meal. Glucose of more than 200 mg/dL in a nonstressed, ambulatory subject supports the diagnosis of Diabetes Mellitus. Hematocrit Auto (Bld) [Volum e fraction]Ordered By: Clarke Bertrand on 05-11-2024 Hematocrit (Bld) [Volume fraction] Hematocrit [Volume Fraction] of Blood by Automated count 38.8-50.0 [facility] [place] Hemoglobin [Mass/volume] in BloodOrdered By: Clarke Bertrand on 05-11-2024 Hemoglobin (Bld) [Mass/Vol] Hemoglobin [Mass/volume] in Blood 13.0-17.0 [facility] Leukocytes [#/volume] correc constance for nucleated erythrocytes in Blood by Automated counOrdered By: Clarke Bertrand on 05-11-2024 WBC corrected for nucl RBC Auto (Bld) [#/Vol] Leukocytes [#/volume] corrected for nucleated erythrocytes in Blood by Automated coun 4.1-10.5 [facility] Lymphocytes Auto (Bld) [#/Vo l]Ordered By: Clarke Bertrand on 05-11-2024 Lymphocytes (Bld) [#/Vol] Lymphocytes [#/volume] in Blood by Automated count 1.00-4.8 [facility] Lymphocytes/100 WBC Auto (Bl d)Ordered By: Clarke Bertrand on 05-11-2024 Lymphocytes/100 WBC (Bld) Lymphocytes/100 leukocytes in Blood by Automated count . [facility] MCH Auto (RBC) [Entitic mass ]Ordered By: Clarke Bertrand on 05-11-2024 MCH (RBC) [Entitic mass] MCH [Entitic mass] by Automated count 27.5-35.2 [facility] MCHC Auto (RBC) [Mass/Vol]Or dered By: Clarke Bertrand on 05-11-2024 MCHC (RBC) [Mass/Vol] MCHC [Mass/volume] by Automated count 32.5-35.6 [facility] MCV Auto (RBC) [Entitic vol] Ordered By: Clarke Bertrand on 05-11-2024 MCV (RBC) [Entitic vol] MCV [Entitic volume] by Automated count 83.5-101 [facility] [place] Monocytes Auto (Bld) [#/Vol] Ordered By: Clarke Bertrand on 05-11-2024 Monocytes (Bld) [#/Vol] Automated blood monocyte count High 0.0-0.8 [facility] [place] Monocytes/100 WBC Auto (Bld) Ordered By: Clarke Bertrand on 05-11-2024 Monocytes/100 WBC (Bld) Automated monocyte % . [facility] Neutrophils Auto (Bld) [#/Vo l]Ordered By: Clarke Bertrand on 05-11-2024 Neutrophils (Bld) [#/Vol] Neutrophils [#/volume] in Blood by Automated count 1.8-7.7 [facility] Neutrophils/100 WBC Auto (Bl d)Ordered By: Clarke Bertrand on 05-11-2024 Neutrophils/100 WBC (Bld) Automated neutrophil % . [facility] No Panel InformationOrdered By: Clarke Bertrand on 05-11-2024 Estimated GFR (CKD-EPI) > 60.0 mL/Min [facility] Pharmacy Creatinine Clearance (Chem N/A [facility] Nucleated erythrocytes [Pres ence] in Blood by Automated countOrdered By: Clarke Bertrand on 05-11-2024 Nucleated RBC Auto Ql (Bld) Nucleated erythrocytes [Presence] in Blood by Automated count 0-0.5 [facility] Platelet mean volume Auto (B ld) [Entitic vol]Ordered By: Clarke Bertrand on 05-11-2024 Platelet mean volume (Bld) [Entitic vol] Platelet mean volume [Entitic volume] in Blood by Automated count 6.6-10.1 [facility] Platelets Auto (Bld) [#/Vol] Ordered By: Clarke Bertrand on 05-11-2024 Platelets (Bld) [#/Vol] Platelets [#/volume] in Blood by Automated count 150-450 [facility] Potassium [Moles/volume] in Serum or PlasmaOrdered By: Clarke Bertrand on 05-11-2024 Potassium [Moles/Vol] Potassium [Moles/v olume] in Serum or Plasma 3.5-5.1 [facility] Protein [Mass/volume] in Ser um or PlasmaOrdered By: Clarke Bertrand on 05-11-2024 Protein [Mass/Vol] Protein [Mass/volume ] in Serum or Plasma 6.4-8.9 [facility] RBC Auto (Bld) [#/Vol]Ordere d By: Clarke Bertrand on 05-11-2024 RBC (Bld) [#/Vol] Erythrocytes [#/volu me] in Blood by Automated count 3.90-5.60 [facility] Serum or plasma albumin/glob ulin mass ratioOrdered By: Clarke Bertrand on 05-11-2024 Albumin/Globulin [Mass ratio] Serum or plasma albumin/globulin mass ratio [facility] Serum or plasma anion gap de terminationOrdered By: Clarke Bertrand on 05-11-2024 Anion gap [Moles/Vol] Serum or plasma an ion gap determination 6.0-15.0 [facility] [place] Sodium [Moles/volume] in Ser um or PlasmaOrdered By: Clarke Bertrand on 05-11-2024 Sodium [Moles/Vol] Sodium [Moles/volume ] in Serum or Plasma 136-145 [facility] [place] Urea nitrogen [Mass/volume] in Serum or PlasmaOrdered By: Clarke Bertrand on 05-11-2024 Urea nitrogen [Mass/Vol] Urea nitrogen [Mass/volume] in Serum or Plasma 7-25 [facility] WBC Auto (Bld) [#/Vol]Ordere d By: Clarke Bertrand on 05-11-2024 WBC (Bld) [#/Vol] Leukocytes [#/volume ] in Blood by Automated count 4.1-10.5 [facility] Influenza virus B Ag [Presen ce] in Upper respiratory specimen by Rapid immunoassayon 04-20-2024 FLUBV Ag IA.rapid Ql (Nph) Influenza virus B Ag [Presence] in Upper respiratory specimen by Rapid immunoassay [facility] No Panel Informationon 04-20 Influenza Type A (Rapid) Positive [facility] POC SARS CoV-2 Antigen Negative [facility] Alanine aminotransferase [En zymatic activity/volume] in Serum or PlasmaOrdered By: Clarke Bertrand on 02-24-2024 ALT [Catalytic activity/Vol] Alanine aminotransferase [Enzymatic activity/volume] in Serum or Plasma 7-52 [facility] Albumin [Mass/volume] in Ser um or Plasma by Bromocresol green (BCG) dye binding methoOrdered By: Clarke Bertrand on 02-24-2024 Albumin BCG dye [Mass/Vol] Albumin [Mass/volume] in Serum or Plasma by Bromocresol green (BCG) dye binding metho 3.5-5.7 [facility] Alkaline phosphatase [Enzyma tic activity/volume] in Serum or PlasmaOrdered By: Clarke Bertrand on 02-24-2024 ALP [Catalytic activity/Vol] Alkaline phosphatase [Enzymatic activity/volume] in Serum or Plasma 34-104 [facility] [place] Aspartate aminotransferase [ Enzymatic activity/volume] in Serum or PlasmaOrdered By: Clarke Bertrand on 02-24-2024 AST [Catalytic activity/Vol] Aspartate aminotransferase [Enzymatic activity/volume] in Serum or Plasma 13-39 [facility] Basophils Auto (Bld) [#/Vol] Ordered By: Clarke Bertrand on 02-24-2024 Basophils (Bld) [#/Vol] Automated basophil count 0.0-0.2 [facility] Basophils/100 WBC Auto (Bld) Ordered By: Clarke Bertrand on 02-24-2024 Basophils/100 WBC (Bld) Automated basophil % . [facility] Bilirubin.total [Mass/volume ] in Serum or PlasmaOrdered By: Clarke Bertrand on 02-24-2024 Bilirubin [Mass/Vol] Bilirubin.total [Mass/volume] in Serum or Plasma 0.3-1.0 [facility] [place] Calcium [Mass/volume] in Ser um or PlasmaOrdered By: Clarke Bertrand on 02-24-2024 Calcium [Mass/Vol] Calcium [Mass/volume ] in Serum or Plasma 8.6-10.3 [facility] Carbon dioxide, total [Moles /volume] in Serum or PlasmaOrdered By: Clarke Bertrand on 02-24-2024 CO2 [Moles/Vol] Carbon dioxide, tota l [Moles/volume] in Serum or Plasma 21.0-31.0 [facility] Chloride [Moles/volume] in S jessica or PlasmaOrdered By: Clarke Bertrand on 02-24-2024 Chloride [Moles/Vol] Chloride [Moles/vol ume] in Serum or Plasma 98-107 [facility] Complete Blood Count Auto Di ffon 02-24-2024 Basophils (Bld) [#/Vol] 0.0 10*3/uL Normal 0.0-0.2 [facility] Comment on above: Performed By: #### C BC, ESR, CMP ####[address] Basophils/100 WBC (Bld) 0.5 % Normal . [facility] Comment on above: Performed By: #### C BC, ESR, CMP ####[address] Eosinophils (Bld) [#/Vol] 0.3 10*3/uL Normal 0.0-0.45 [facility] Comment on above: Performed By: #### C BC, ESR, CMP ####[place] [id number] [facility] Eosinophils/100 WBC (Bld) 4.1 % Normal . [facility] Comment on above: Performed By: #### C BC, ESR, CMP ####[place] [id number] [facility] Erythrocyte distribution width (RBC) [Ratio] 17.4 % High 12.0-14.8 [facility] Comment on above: Performed By: #### C BC, ESR, CMP ####[place] [id number] [facility] Hematocrit (Bld) [Volume fraction] 42.5 % Normal 38.8-50.0 [facility] Comment on above: Performed By: #### C BC, ESR, CMP ####[place] [id number] [facility] Hemoglobin (Bld) [Mass/Vol] 14.2 g/dL Normal 13.0-17.0 [facility] Comment on above: Performed By: #### C BC, ESR, CMP ####[address] Lymphocytes (Bld) [#/Vol] 1.4 10*3/uL Normal 1.00-4.8 [facility] Comment on above: Performed By: #### C BC, ESR, CMP ####[address] Lymphocytes/100 WBC (Bld) 21.7 % Normal . [facility] Comment on above: Performed By: #### C BC, ESR, CMP ####[address] MCH (RBC) [Entitic mass] 30.1 pg Normal 27.5-35.2 [facility] Comment on above: Performed By: #### C BC, ESR, CMP ####[address] MCV (RBC) [Entitic vol] 90.1 fL Normal 83.5-101 [facility] Comment on above: Performed By: #### C BC, ESR, CMP ####[address] Mean Corpuscular HGB Conc 33.4 g/dL Normal 32.5-35.6 [facility] Comment on above: Performed By: #### C BC, ESR, CMP ####[address] Monocytes (Bld) [#/Vol] 0.7 10*3/uL Normal 0.0-0.8 [facility] Comment on above: Performed By: #### C BC, ESR, CMP ####[address] Monocytes/100 WBC (Bld) 11.7 % Normal . [facility] Comment on above: Performed By: #### C BC, ESR, CMP ####[address] Neutrophils (Bld) [#/Vol] 3.9 10*3/uL Normal 1.8-7.7 [facility] Comment on above: Performed By: #### C BC, ESR, CMP ####[address] Neutrophils/100 WBC (Bld) 62.0 % Normal . [facility] Comment on above: Performed By: #### C BC, ESR, CMP ####[address] NRBC% 0.1 /100{WBC} Normal 0-0.5 [facility] Comment on above: Performed By: #### C BC, ESR, CMP ####[address] Platelet mean volume (Bld) [Entitic vol] 8.9 fL Normal 6.6-10.1 [facility] Comment on above: Performed By: #### C BC, ESR, CMP ####[address] Platelets (Bld) [#/Vol] 218 10*3/uL Normal 150-450 [facility] Comment on above: Performed By: #### C BC, ESR, CMP ####[address] RBC (Bld) [#/Vol] 4.72 10*6/uL Normal 3.90-5.60 [facility] Comment on above: Performed By: #### C BC, ESR, CMP ####[address] WBC (Bld) [#/Vol] 6.3 10*3/uL Normal 4.1-10.5 [facility] Comment on above: Performed By: #### C BC, ESR, CMP ####[address] Comprehensive Metabolic Pane dayo 02-24-2024 Albumin [Mass/Vol] 3.8 g/dL Normal 3.5-5.7 [facility] Comment on above: Performed By: #### C BC, ESR, CMP ####[place] [id number] [facility] Albumin/Globulin [Mass ratio] 1.1 {ratio} Normal [facility] Comment on above: Performed By: #### C BC, ESR, CMP ####[place] [id number] [facility] ALP [Catalytic activity/Vol] 87 U/L Normal 34-104 [facility] Comment on above: Result Comment: PERF ORMED BY: [facility] [address] [place] [address] PATHOLOGIST CONTRACT LOADER EDE JENNINGS M.D. Performed By: #### C BC, ESR, CMP ####[address] ALT [Catalytic activity/Vol] 19 U/L Normal 7-52 [facility] Comment on above: Performed By: #### C BC, ESR, CMP ####[address] Anion gap [Moles/Vol] 12.4 mmol/L Normal 6.0-15.[address] [facility] Comment on above: Performed By: #### C BC, ESR, CMP ####[address] AST [Catalytic activity/Vol] 18 U/L Normal 13-39 [facility] Comment on above: Performed By: #### C BC, ESR, CMP ####[address] Bilirubin [Mass/Vol] 0.5 mg/dL Normal 0.3-1.0 [facility] Comment on above: Performed By: #### C BC, ESR, CMP ####[address] Calcium [Mass/Vol] 9.2 mg/dL Normal 8.6-10.3 [facility] Comment on above: Performed By: #### C BC, ESR, CMP ####[address] Chloride [Moles/Vol] 104 mmol/L Normal 98-107 [facility] Comment on above: Performed By: #### C BC, ESR, CMP ####[address] CO2 [Moles/Vol] 28.2 mmol/L Normal 21.0-31.0 [facility] Comment on above: Performed By: #### C BC, ESR, CMP ####[address] Creatinine [Mass/Vol] 0.76 mg/dL Normal 0.70-1.30 [facility] Comment on above: Performed By: #### C BC, ESR, CMP ####[address] GFR/1.73 sq M.predicted MDRD (S/P/Bld) [Vol rate/Area] mL/min/{1.73_m2} Normal [facility] Comment on above: Performed By: #### C BC, ESR, CMP ####[address] Globulin (S) [Mass/Vol] 3.4 g/dL Normal [facility] Comment on above: Performed By: #### C BC, ESR, CMP ####[address] Glucose [Mass/Vol] 96 mg/dL Normal 70-100 [facility] Comment on above: Result Comment: [place] Glucose Reference Range is dependent on time and content of last meal. Glucose of more than 200 mg/dL in a nonstressed, ambulatory subject supports the diagnosis of Diabetes Mellitus. ADA recommended reference range Performed By: #### C BC, ESR, CMP ####[address] Potassium [Moles/Vol] 3.6 mmol/L Normal 3.5-5.1 [facility] Comment on above: Performed By: #### C BC, ESR, CMP ####[address] Protein [Mass/Vol] 7.2 g/dL Normal 6.4-8.9 [facility] Comment on above: Performed By: #### C BC, ESR, CMP ####[place] [id number] [address] Sodium [Moles/Vol] 141 mmol/L Normal 136-145 [facility] Comment on above: Performed By: #### C BC, ESR, CMP ####[place] [id number] [address] Urea nitrogen [Mass/Vol] 13 mg/dL Normal 7-25 [facility] Comment on above: Performed By: #### C BC, ESR, CMP ####[place] [id number] [address] Creatinine [Mass/volume] in Serum or PlasmaOrdered By: Clarke Bertrand on 02-24-2024 Creatinine [Mass/Vol] Creatinine [Mass/v olume] in Serum or Plasma 0.70-1.30 [facility] Eosinophils Auto (Bld) [#/Vo l]Ordered By: Clarke Bertrand on 02-24-2024 Eosinophils (Bld) [#/Vol] Automated eosinophil count 0.0-0.45 [facility] Eosinophils/100 WBC Auto (Bl d)Ordered By: Clarke Bertrand on 02-24-2024 Eosinophils/100 WBC (Bld) Automated eosinophil % . [facility] Erythrocyte Sedimentation Ra basilio 02-24-2024 ESR (Bld) [Velocity] 55 mm/h High 0-19 [facility] Comment on above: Result Comment: PERF ORMED BY: [facility] [address] [place] [id number] PATHOLOGIST CONTRACT LOADER DEE JENNINGS M.D. Performed By: #### C BC, ESR, CMP ####[address] Erythrocyte distribution wid th Auto (RBC) [Ratio]Ordered By: Clarke Bertrand on 02-24-2024 Erythrocyte distribution width (RBC) [Ratio] Erythrocyte distribution width [Ratio] by Automated count High 12.0-14.8 [facility] Erythrocyte sedimentation ra te by Photometric methodOrdered By: Clarke Bertrand on 02-24-2024 ESR Photometric method (Bld) [Velocity] Erythrocyte sedimentation rate by Photometric method High 0-19 [facility] Globulin Calc (S) [Mass/Vol] Ordered By: Clarke Bertrand on 02-24-2024 Globulin (S) [Mass/Vol] Serum globulin measurement by calculation (mass/volume) [facility] Glucose [Mass/volume] in Ser um or PlasmaOrdered By: Clarke Bertrand on 02-24-2024 Glucose [Mass/Vol] Glucose [Mass/volume ] in Serum or Plasma 70-100 [facility] Comment on above: ADA recommended refe rence rangeRandom Glucose Reference Range is dependent on time and content of last meal. Glucose of more than 200 mg/dL in a nonstressed, ambulatory subject supports the diagnosis of Diabetes Mellitus. Hematocrit Auto (Bld) [Volum e fraction]Ordered By: Clarke Bertrand on 02-24-2024 Hematocrit (Bld) [Volume fraction] Hematocrit [Volume Fraction] of Blood by Automated count 38.8-50.0 [facility] Hemoglobin [Mass/volume] in BloodOrdered By: Clarke Bertrand on 02-24-2024 Hemoglobin (Bld) [Mass/Vol] Hemoglobin [Mass/volume] in Blood 13.0-17.0 [facility] Leukocytes [#/volume] correc constance for nucleated erythrocytes in Blood by Automated counOrdered By: Clarke Bertrand on 02-24-2024 WBC corrected for nucl RBC Auto (Bld) [#/Vol] Leukocytes [#/volume] corrected for nucleated erythrocytes in Blood by Automated coun 4.1-10.5 [facility] Lymphocytes Auto (Bld) [#/Vo l]Ordered By: Clarke Bertrand on 02-24-2024 Lymphocytes (Bld) [#/Vol] Lymphocytes [#/volume] in Blood by Automated count 1.00-4.8 [facility] Lymphocytes/100 WBC Auto (Bl d)Ordered By: Clarke Bertrand on 02-24-2024 Lymphocytes/100 WBC (Bld) Lymphocytes/100 leukocytes in Blood by Automated count . [facility] MCH Auto (RBC) [Entitic mass ]Ordered By: Clarke Bertrand on 02-24-2024 MCH (RBC) [Entitic mass] MCH [Entitic mass] by Automated count 27.5-35.2 [facility] MCHC Auto (RBC) [Mass/Vol]Or dered By: Clarke Bertrand on 02-24-2024 MCHC (RBC) [Mass/Vol] MCHC [Mass/volume] by Automated count 32.5-35.6 [facility] MCV Auto (RBC) [Entitic vol] Ordered By: Clarke Bertrand on 02-24-2024 MCV (RBC) [Entitic vol] MCV [Entitic volume] by Automated count 83.5-101 [facility] Monocytes Auto (Bld) [#/Vol] Ordered By: Clarke Bertrand on 02-24-2024 Monocytes (Bld) [#/Vol] Automated blood monocyte count 0.0-0.8 [facility] Monocytes/100 WBC Auto (Bld) Ordered By: Clarke Bertrand on 02-24-2024 Monocytes/100 WBC (Bld) Automated monocyte % . [facility] Neutrophils Auto (Bld) [#/Vo l]Ordered By: Clarke Bertrand on 02-24-2024 Neutrophils (Bld) [#/Vol] Neutrophils [#/volume] in Blood by Automated count 1.8-7.7 [facility] Neutrophils/100 WBC Auto (Bl d)Ordered By: Clarke Bertrand on 02-24-2024 Neutrophils/100 WBC (Bld) Automated neutrophil % . [facility] No Panel InformationOrdered By: Clarke Bertrand on 02-24-2024 Estimated GFR (CKD-EPI) > 60.0 mL/Min [facility] Pharmacy Creatinine Clearance (Chem N/A [facility] Nucleated erythrocytes [Pres ence] in Blood by Automated countOrdered By: Clarke Bertrand on 02-24-2024 Nucleated RBC Auto Ql (Bld) Nucleated erythrocytes [Presence] in Blood by Automated count 0-0.5 [facility] Platelet mean volume Auto (B ld) [Entitic vol]Ordered By: Clarke Bertrand on 02-24-2024 Platelet mean volume (Bld) [Entitic vol] Platelet mean volume [Entitic volume] in Blood by Automated count 6.6-10.1 [facility] Platelets Auto (Bld) [#/Vol] Ordered By: Clarke Bertrand on 02-24-2024 Platelets (Bld) [#/Vol] Platelets [#/volume] in Blood by Automated count 150-450 [facility] Potassium [Moles/volume] in Serum or PlasmaOrdered By: Clarke Bertrand on 02-24-2024 Potassium [Moles/Vol] Potassium [Moles/v olume] in Serum or Plasma 3.5-5.1 [facility] Protein [Mass/volume] in Ser um or PlasmaOrdered By: Clarke Bertrand on 02-24-2024 Protein [Mass/Vol] Protein [Mass/volume ] in Serum or Plasma 6.4-8.9 [facility] RBC Auto (Bld) [#/Vol]Ordere d By: Clarke Bertrand on 02-24-2024 RBC (Bld) [#/Vol] Erythrocytes [#/volu me] in Blood by Automated count 3.90-5.60 [facility] Serum or plasma albumin/glob ulin mass ratioOrdered By: Clarke Bertrand on 02-24-2024 Albumin/Globulin [Mass ratio] Serum or plasma albumin/globulin mass ratio [facility] Serum or plasma anion gap de terminationOrdered By: Clarke Bertrand on 02-24-2024 Anion gap [Moles/Vol] Serum or plasma an ion gap determination 6.0-15.0 [facility] Sodium [Moles/volume] in Ser um or PlasmaOrdered By: Clarke Bertrand on 02-24-2024 Sodium [Moles/Vol] Sodium [Moles/volume ] in Serum or Plasma 136-145 [facility] Urea nitrogen [Mass/volume] in Serum or PlasmaOrdered By: Clarke Bertrand on 02-24-2024 Urea nitrogen [Mass/Vol] Urea nitrogen [Mass/volume] in Serum or Plasma 7-25 [facility] WBC Auto (Bld) [#/Vol]Ordere d By: Clarke Bertrand on 02-24-2024 WBC (Bld) [#/Vol] Leukocytes [#/volume ] in Blood by Automated count 4.1-10.5 [facility] Alanine aminotransferase [En zymatic activity/volume] in Serum or PlasmaOrdered By: Lashell Villar on 12-30-2023 ALT [Catalytic activity/Vol] Alanine aminotransferase [Enzymatic activity/volume] in Serum or Plasma 7-52 [facility] Albumin [Mass/volume] in Ser um or Plasma by Bromocresol green (BCG) dye binding methoOrdered By: Lashell Villar on 12-30-2023 Albumin BCG dye [Mass/Vol] Albumin [Mass/volume] in Serum or Plasma by Bromocresol green (BCG) dye binding metho 3.5-5.7 [facility] Alkaline phosphatase [Enzyma tic activity/volume] in Serum or PlasmaOrdered By: aLshell Villar on 12-30-2023 ALP [Catalytic activity/Vol] Alkaline phosphatase [Enzymatic activity/volume] in Serum or Plasma 34-104 [facility] Aspartate aminotransferase [ Enzymatic activity/volume] in Serum or PlasmaOrdered By: Lashell Villar on 12-30-2023 AST [Catalytic activity/Vol] Aspartate aminotransferase [Enzymatic activity/volume] in Serum or Plasma 13-39 [facility] Basophils Auto (Bld) [#/Vol] Ordered By: Lashell Villar on 12-30-2023 Basophils (Bld) [#/Vol] Automated basophil count 0.0-0.2 [facility] Basophils/100 WBC Auto (Bld) Ordered By: Lashell Villar on 12-30-2023 Basophils/100 WBC (Bld) Automated basophil % . [facility] Bilirubin.total [Mass/volume ] in Serum or PlasmaOrdered By: Lashell Villar on 12-30-2023 Bilirubin [Mass/Vol] Bilirubin.total [Mass/volume] in Serum or Plasma 0.3-1.0 [facility] Calcium [Mass/volume] in Ser um or PlasmaOrdered By: Lashell Villar on 12-30-2023 Calcium [Mass/Vol] Calcium [Mass/volume ] in Serum or Plasma 8.6-10.3 [facility] Carbon dioxide, total [Moles /volume] in Serum or PlasmaOrdered By: Lashell Villar on 12-30-2023 CO2 [Moles/Vol] Carbon dioxide, tota l [Moles/volume] in Serum or Plasma 21.0-31.0 [facility] Chloride [Moles/volume] in S jessica or PlasmaOrdered By: Lashell Villar on 12-30-2023 Chloride [Moles/Vol] Chloride [Moles/vol ume] in Serum or Plasma 98-107 [facility] Complete Blood Count Auto Di ffon 12-30-2023 Basophils (Bld) [#/Vol] 0.0 10*3/uL Normal 0.0-0.2 [facility] Comment on above: Performed By: #### B 12, CBC, MG, ESR, CMP ####[address] Basophils/100 WBC (Bld) 0.6 % Normal . [facility] Comment on above: Performed By: #### B 12, CBC, MG, ESR, CMP ####[address] Eosinophils (Bld) [#/Vol] 0.2 10*3/uL Normal 0.0-0.45 [facility] Comment on above: Performed By: #### B 12, CBC, MG, ESR, CMP ####[address] Eosinophils/100 WBC (Bld) 5.0 % Normal . [facility] Comment on above: Performed By: #### B 12, CBC, MG, ESR, CMP ####[address] Erythrocyte distribution width (RBC) [Ratio] 16.6 % High 12.0-14.8 [facility] Comment on above: Performed By: #### B 12, CBC, MG, ESR, CMP ####[address] Hematocrit (Bld) [Volume fraction] 42.4 % Normal 38.8-50.0 [facility] Comment on above: Performed By: #### B 12, CBC, MG, ESR, CMP ####[place] [address] Hemoglobin (Bld) [Mass/Vol] 14.2 g/dL Normal 13.0-17.0 [facility] Comment on above: Performed By: #### B 12, CBC, MG, ESR, CMP ####[address] Lymphocytes (Bld) [#/Vol] 1.2 10*3/uL Normal 1.00-4.8 [facility] Comment on above: Performed By: #### B 12, CBC, MG, ESR, CMP ####[address] Lymphocytes/100 WBC (Bld) 23.8 % Normal . [facility] Comment on above: Performed By: #### B 12, CBC, MG, ESR, CMP ####[address] MCH (RBC) [Entitic mass] 30.8 pg Normal 27.5-35.2 [facility] Comment on above: Performed By: #### B 12, CBC, MG, ESR, CMP ####[address] MCV (RBC) [Entitic vol] 92.2 fL Normal 83.5-101 [facility] Comment on above: Performed By: #### B 12, CBC, MG, ESR, CMP ####[address] Mean Corpuscular HGB Conc 33.4 g/dL Normal 32.5-35.6 [facility] Comment on above: Performed By: #### B 12, CBC, MG, ESR, CMP ####[address] Monocytes (Bld) [#/Vol] 0.6 10*3/uL Normal 0.0-0.8 [facility] Comment on above: Performed By: #### B 12, CBC, MG, ESR, CMP ####[address] Monocytes/100 WBC (Bld) 12.7 % Normal . [facility] Comment on above: Performed By: #### B 12, CBC, MG, ESR, CMP ####[address] Neutrophils (Bld) [#/Vol] 2.8 10*3/uL Normal 1.8-7.7 [facility] Comment on above: Performed By: #### B 12, CBC, MG, ESR, CMP ####[address] Neutrophils/100 WBC (Bld) 57.9 % Normal . [facility] Comment on above: Performed By: #### B 12, CBC, MG, ESR, CMP ####[address] NRBC% 0.1 /100{WBC} Normal 0-0.5 [facility] Comment on above: Performed By: #### B 12, CBC, MG, ESR, CMP ####[address] Platelet mean volume (Bld) [Entitic vol] 9.0 fL Normal 6.6-10.1 [facility] Comment on above: Performed By: #### B 12, CBC, MG, ESR, CMP ####[address] Platelets (Bld) [#/Vol] 183 10*3/uL Normal 150-450 [facility] Comment on above: Performed By: #### B 12, CBC, MG, ESR, CMP ####[address] RBC (Bld) [#/Vol] 4.60 10*6/uL Normal 3.90-5.60 [facility] Comment on above: Performed By: #### B 12, CBC, MG, ESR, CMP ####[address] WBC (Bld) [#/Vol] 4.9 10*3/uL Normal 4.1-10.5 [facility] Comment on above: Performed By: #### B 12, CBC, MG, ESR, CMP ####[address] Comprehensive Metabolic Pane dayo 12-30-2023 Albumin [Mass/Vol] 3.6 g/dL Normal 3.5-5.7 [facility] Comment on above: Performed By: #### B 12, CBC, MG, ESR, CMP ####[address] Albumin/Globulin [Mass ratio] 1.0 {ratio} Normal [facility] Comment on above: Performed By: #### B 12, CBC, MG, ESR, CMP ####[address] ALP [Catalytic activity/Vol] 86 U/L Normal 34-104 [facility] Comment on above: Performed By: #### B 12, CBC, MG, ESR, CMP ####[address] ALT [Catalytic activity/Vol] 16 U/L Normal 7-52 [facility] Comment on above: Performed By: #### B 12, CBC, MG, ESR, CMP ####[address] Anion gap [Moles/Vol] 12.7 mmol/L Normal 6.0-15.0 [facility] Comment on above: Performed By: #### B 12, CBC, MG, ESR, CMP ####[address] AST [Catalytic activity/Vol] 19 U/L Normal 13-39 [facility] Comment on above: Performed By: #### B 12, CBC, MG, ESR, CMP ####[address] Bilirubin [Mass/Vol] 0.5 mg/dL Normal 0.3-1.0 [facility] Comment on above: Performed By: #### B 12, CBC, MG, ESR, CMP ####[address] Calcium [Mass/Vol] 9.0 mg/dL Normal 8.6-10.3 [facility] Comment on above: Performed By: #### B 12, CBC, MG, ESR, CMP ####[address] Chloride [Moles/Vol] 105 mmol/L Normal 98-107 [facility] Comment on above: Performed By: #### B 12, CBC, MG, ESR, CMP ####[address] CO2 [Moles/Vol] 25.9 mmol/L Normal 21.0-31.0 [facility] Comment on above: Performed By: #### B 12, CBC, MG, ESR, CMP ####[address] Creatinine [Mass/Vol] 0.83 mg/dL Normal 0.70-1.30 [facility] Comment on above: Performed By: #### B 12, CBC, MG, ESR, CMP ####[address] GFR/1.73 sq M.predicted MDRD (S/P/Bld) [Vol rate/Area] mL/min/{1.73_m2} Normal [facility] Comment on above: Performed By: #### B 12, CBC, MG, ESR, CMP ####[address] Globulin (S) [Mass/Vol] 3.5 g/dL Normal [facility] Comment on above: Performed By: #### B 12, CBC, MG, ESR, CMP ####[address] Glucose [Mass/Vol] 95 mg/dL Normal 70-100 [facility] Comment on above: Result Comment: [place] Glucose Reference Range is dependent on time and content of last meal. Glucose of more than 200 mg/dL in a nonstressed, ambulatory subject supports the diagnosis of Diabetes Mellitus. ADA recommended reference range Performed By: #### B 12, CBC, MG, ESR, CMP ####[address] Potassium [Moles/Vol] 3.6 mmol/L Normal 3.5-5.1 [facility] Comment on above: Performed By: #### B 12, CBC, MG, ESR, CMP ####[address] Protein [Mass/Vol] 7.1 g/dL Normal 6.4-8.9 [facility] Comment on above: Performed By: #### B 12, CBC, MG, ESR, CMP ####[address] Sodium [Moles/Vol] 140 mmol/L Normal 136-145 [facility] Comment on above: Performed By: #### B 12, CBC, MG, ESR, CMP ####[address] Urea nitrogen [Mass/Vol] 10 mg/dL Normal 7-25 [facility] Comment on above: Performed By: #### B 12, CBC, MG, ESR, CMP ####[address] Creatinine [Mass/volume] in Serum or PlasmaOrdered By: Lashell Villar on 12-30-2023 Creatinine [Mass/Vol] Creatinine [Mass/v olume] in Serum or Plasma 0.70-1.30 [facility] Eosinophils Auto (Bld) [#/Vo l]Ordered By: Lashell Villar on 12-30-2023 Eosinophils (Bld) [#/Vol] Automated eosinophil count 0.0-0.45 [facility] Eosinophils/100 WBC Auto (Bl d)Ordered By: Lashell Villar on 12-30-2023 Eosinophils/100 WBC (Bld) Automated eosinophil % . [facility] Erythrocyte Sedimentation Ra basilio 12-30-2023 ESR (Bld) [Velocity] 59 mm/h High 0-19 [facility] Comment on above: Result Comment: PERF ORMED BY: [facility] [address] [place] [id number] PATHOLOGIST CONTRACT LOADER DEE JENNINGS M.D. Performed By: #### B 12, CBC, MG, ESR, CMP ####[facility] [address] [place] [address] [facility] Erythrocyte distribution wid th Auto (RBC) [Ratio]Ordered By: Lashell Villar on 12-30-2023 Erythrocyte distribution width (RBC) [Ratio] Erythrocyte distribution width [Ratio] by Automated count High 12.0-14.8 [facility] Erythrocyte sedimentation ra te by Photometric methodOrdered By: Lashell Villar on 12-30-2023 ESR Photometric method (Bld) [Velocity] Erythrocyte sedimentation rate by Photometric method High 0-19 [facility] Globulin Calc (S) [Mass/Vol] Ordered By: Lashell Villar on 12-30-2023 Globulin (S) [Mass/Vol] Serum globulin measurement by calculation (mass/volume) [facility] Glucose [Mass/volume] in Ser um or PlasmaOrdered By: Lashell Villar on 12-30-2023 Glucose [Mass/Vol] Glucose [Mass/volume ] in Serum or Plasma 70-100 [facility] Comment on above: ADA recommended refe rence rangeRandom Glucose Reference Range is dependent on time and content of last meal. Glucose of more than 200 mg/dL in a nonstressed, ambulatory subject supports the diagnosis of Diabetes Mellitus. Hematocrit Auto (Bld) [Volum e fraction]Ordered By: Lashell Villar on 12-30-2023 Hematocrit (Bld) [Volume fraction] Hematocrit [Volume Fraction] of Blood by Automated count 38.8-50.0 [facility] Hemoglobin [Mass/volume] in BloodOrdered By: Lashell Villar on 12-30-2023 Hemoglobin (Bld) [Mass/Vol] Hemoglobin [Mass/volume] in Blood 13.0-17.0 [facility] Leukocytes [#/volume] correc constance for nucleated erythrocytes in Blood by Automated counOrdered By: Lashell Villar on 11-20-2024 WBC corrected for nucl RBC Auto (Bld) [#/Vol] Leukocytes [#/volume] corrected for nucleated erythrocytes in Blood by Automated coun 4.1-10.5 [facility] Lymphocytes Auto (Bld) [#/Vo l]Ordered By: Lashell Villar on 12-30-2023 Lymphocytes (Bld) [#/Vol] Lymphocytes [#/volume] in Blood by Automated count 1.00-4.8 [facility] Lymphocytes/100 WBC Auto (Bl d)Ordered By: Lashell Villar on 12-30-2023 Lymphocytes/100 WBC (Bld) Lymphocytes/100 leukocytes in Blood by Automated count . [facility] MCH Auto (RBC) [Entitic mass ]Ordered By: Lashell Villar on 12-30-2023 MCH (RBC) [Entitic mass] MCH [Entitic mass] by Automated count 27.5-35.2 [facility] MCHC Auto (RBC) [Mass/Vol]Or dered By: Lashell Villar on 12-30-2023 MCHC (RBC) [Mass/Vol] MCHC [Mass/volume] by Automated count 32.5-35.6 [facility] MCV Auto (RBC) [Entitic vol] Ordered By: Lashell Villar on 12-30-2023 MCV (RBC) [Entitic vol] MCV [Entitic volume] by Automated count 83.5-101 [facility] Magnesiumon 12-30-2023 Magnesium [Mass/Vol] 1.8 mg/dL Low 1.9-2.7 [facility] Comment on above: Performed By: #### B 12, CBC, MG, ESR, CMP ####[facility] [id number] [place] [address] [facility] Magnesium [Mass/volume] in S jessica or PlasmaOrdered By: Lashell Villar on 12-30-2023 Magnesium [Mass/Vol] Magnesium [Mass/vol ume] in Serum or Plasma Low 1.9-2.7 [facility] Monocytes Auto (Bld) [#/Vol] Ordered By: Lashell Villar on 12-30-2023 Monocytes (Bld) [#/Vol] Automated blood monocyte count 0.0-0.8 [facility] Monocytes/100 WBC Auto (Bld) Ordered By: Lashell Villar on 12-30-2023 Monocytes/100 WBC (Bld) Automated monocyte % . [facility] Neutrophils Auto (Bld) [#/Vo l]Ordered By: Lashell Villar on 12-30-2023 Neutrophils (Bld) [#/Vol] Neutrophils [#/volume] in Blood by Automated count 1.8-7.7 [facility] Neutrophils/100 WBC Auto (Bl d)Ordered By: Lashell Villar on 12-30-2023 Neutrophils/100 WBC (Bld) Automated neutrophil % . [facility] No Panel InformationOrdered By: Lashell Villar on 12-30-2023 Estimated GFR (CKD-EPI) > 60.0 mL/Min [facility] Pharmacy Creatinine Clearance (Chem N/A [facility] Nucleated erythrocytes [Pres ence] in Blood by Automated countOrdered By: Lashell Villar on 12-30-2023 Nucleated RBC Auto Ql (Bld) Nucleated erythrocytes [Presence] in Blood by Automated count 0-0.5 [facility] Platelet mean volume Auto (B ld) [Entitic vol]Ordered By: Lashell Villar on 12-30-2023 Platelet mean volume (Bld) [Entitic vol] Platelet mean volume [Entitic volume] in Blood by Automated count 6.6-10.1 [facility] Platelets Auto (Bld) [#/Vol] Ordered By: Lashell Villar on 12-30-2023 Platelets (Bld) [#/Vol] Platelets [#/volume] in Blood by Automated count 150-450 [facility] Potassium [Moles/volume] in Serum or PlasmaOrdered By: Lashell Villar on 12-30-2023 Potassium [Moles/Vol] Potassium [Moles/v olume] in Serum or Plasma 3.5-5.1 [facility] Protein [Mass/volume] in Ser um or PlasmaOrdered By: Lashell Villar on 12-30-2023 Protein [Mass/Vol] Protein [Mass/volume ] in Serum or Plasma 6.4-8.9 [facility] RBC Auto (Bld) [#/Vol]Ordere d By: Lashell Villar on 12-30-2023 RBC (Bld) [#/Vol] Erythrocytes [#/volu me] in Blood by Automated count 3.90-5.60 [facility] Serum or plasma albumin/glob ulin mass ratioOrdered By: Lashell Villar on 12-30-2023 Albumin/Globulin [Mass ratio] Serum or plasma albumin/globulin mass ratio [facility] Serum or plasma anion gap de terminationOrdered By: Lashell Villar on 12-30-2023 Anion gap [Moles/Vol] Serum or plasma an ion gap determination 6.0-15.0 [facility] Sodium [Moles/volume] in Ser um or PlasmaOrdered By: Lashell Villar on 12-30-2023 Sodium [Moles/Vol] Sodium [Moles/volume ] in Serum or Plasma 136-145 [facility] Urea nitrogen [Mass/volume] in Serum or PlasmaOrdered By: Lashell Villar on 12-30-2023 Urea nitrogen [Mass/Vol] Urea nitrogen [Mass/volume] in Serum or Plasma 7-25 [facility] Vitamin B12on 12-30-2023 Cobalamin (Vitamin B12) [Mass/Vol] 1136 pg/mL High 180-914 [facility] Comment on above: Result Comment: PERF ORMED BY: [facility] [address] [place] [address] PATHOLOGIST CONTRACT LO[employer]ER DEE JENNINGS M.D. Performed By: #### B 12, CBC, MG, ESR, CMP ####[facility] [id number] [place] [address] [facility] Vitamin B12 ser/plasOrdered By: Lashell Villar on 12-30-2023 Cobalamin (Vitamin B12) [Mass/Vol] Vitamin B12 ser/plas High 180-914 [facility] WBC Auto (Bld) [#/Vol]Ordere d By: Lashell Villar on 12-30-2023 WBC (Bld) [#/Vol] Leukocytes [#/volume ] in Blood by Automated count 4.1-10.5 [facility] Alanine aminotransferase [En zymatic activity/volume] in Serum or PlasmaOrdered By: Lashell Villar on 09-09-2023 ALT [Catalytic activity/Vol] 21 U/L 7-52 [facility] Albumin [Mass/volume] in Ser um or Plasma by Bromocresol green (BCG) dye binding methoOrdered By: Lashell Villar on 09-09-2023 Albumin BCG dye [Mass/Vol] 3.9 g/dL 3.5-5.7 [facility] Alkaline phosphatase [Enzyma tic activity/volume] in Serum or PlasmaOrdered By: Lashell Villar on 09-09-2023 ALP [Catalytic activity/Vol] 74 U/L 34-104 [facility] Aspartate aminotransferase [ Enzymatic activity/volume] in Serum or PlasmaOrdered By: Lashell Villar on 09-09-2023 AST [Catalytic activity/Vol] 25 U/L 13-39 [facility] Basophils Auto (Bld) [#/Vol] Ordered By: Lashell Villar on 09-09-2023 Basophils (Bld) [#/Vol] 0.0 10*3/uL 0.0-0.2 [facility] Basophils/100 WBC Auto (Bld) Ordered By: Lashell Villar on 09-09-2023 Basophils/100 WBC (Bld) 0.7 % . [facility] Bilirubin.total [Mass/volume ] in Serum or PlasmaOrdered By: Lashell Villar on 09-09-2023 Bilirubin [Mass/Vol] 0.5 mg/dL 0.3-1.0 [facility] Calcium [Mass/volume] in Ser um or PlasmaOrdered By: Lashell Villar on 09-09-2023 Calcium [Mass/Vol] 9.6 mg/dL 8.6-10.3 [facility] Carbon dioxide, total [Moles /volume] in Serum or PlasmaOrdered By: Lashell Villar on 09-09-2023 CO2 [Moles/Vol] 25.0 mmol/L 21.0-31.0 [facility] Chloride [Moles/volume] in S jessica or PlasmaOrdered By: Lashell Villar on 09-09-2023 Chloride [Moles/Vol] 107 mmol/L 98-107 [facility] Creatinine [Mass/volume] in Serum or PlasmaOrdered By: Lashell Villar on 09-09-2023 Creatinine [Mass/Vol] 0.84 mg/dL 0.70-1.30 [facility] Eosinophils Auto (Bld) [#/Vo l]Ordered By: Lashell Villar on 09-09-2023 Eosinophils (Bld) [#/Vol] 0.2 10*3/uL 0.0-0.45 [facility] Eosinophils/100 WBC Auto (Bl d)Ordered By: Lashell Villar on 09-09-2023 Eosinophils/100 WBC (Bld) 5.0 % . [facility] Erythrocyte distribution wid th Auto (RBC) [Ratio]Ordered By: Lashell Villar on 09-09-2023 Erythrocyte distribution width (RBC) [Ratio] 16.6 % High 12.0-14.8 [facility] Erythrocyte sedimentation ra te by Photometric methodOrdered By: Lashell Villar on 09-09-2023 ESR Photometric method (Bld) [Velocity] 51 mm/hr High 0-19 [facility] Globulin Calc (S) [Mass/Vol] Ordered By: Lashell Villar on 09-09-2023 Globulin (S) [Mass/Vol] 3.3 g/dL [facility] Glucose [Mass/volume] in Ser um or PlasmaOrdered By: Lashell Villar on 09-09-2023 Glucose [Mass/Vol] 99 mg/dL 70-100 [facility] Comment on above: ADA recommended refe rence rangeRandom Glucose Reference Range is dependent on time and content of last meal. Glucose of more than 200 mg/dL in a nonstressed, ambulatory subject supports the diagnosis of Diabetes Mellitus. Hematocrit Auto (Bld) [Volum e fraction]Ordered By: Lashell Villar on 09-09-2023 Hematocrit (Bld) [Volume fraction] 44.0 % 38.8-50.0 [facility] Hemoglobin [Mass/volume] in BloodOrdered By: Lashell Villar on 09-09-2023 Hemoglobin (Bld) [Mass/Vol] 14.4 g/dL 13.0-17.0 [facility] Leukocytes [#/volume] correc constance for nucleated erythrocytes in Blood by Automated counOrdered By: Lashell Villar on 09-09-2023 WBC corrected for nucl RBC Auto (Bld) [#/Vol] 4.7 10*3/uL 4.1-10.5 [facility] Lymphocytes Auto (Bld) [#/Vo l]Ordered By: Lashell Villar on 09-09-2023 Lymphocytes (Bld) [#/Vol] 1.2 10*3/uL 1.00-4.8 [facility] Lymphocytes/100 WBC Auto (Bl d)Ordered By: Lashell Villar on 09-09-2023 Lymphocytes/100 WBC (Bld) 25.4 % . [facility] MCH Auto (RBC) [Entitic mass ]Ordered By: Lashell Villar on 09-09-2023 MCH (RBC) [Entitic mass] 30.1 pg 27.5-35.2 [facility] MCHC Auto (RBC) [Mass/Vol]Or dered By: Lashell Villar on 09-09-2023 MCHC (RBC) [Mass/Vol] 32.7 g/dL 32.5-35.6 [facility] MCV Auto (RBC) [Entitic vol] Ordered By: Lashell Villar on 09-09-2023 MCV (RBC) [Entitic vol] 92.0 fL 83.5-101 [facility] Magnesium [Mass/volume] in S jessica or PlasmaOrdered By: Lashell Villar on 09-09-2023 Magnesium [Mass/Vol] 1.9 mg/dL 1.9-2.7 [facility] Monocytes Auto (Bld) [#/Vol] Ordered By: Lashell Villar on 09-09-2023 Monocytes (Bld) [#/Vol] 0.6 10*3/uL 0.0-0.8 [facility] Monocytes/100 WBC Auto (Bld) Ordered By: Lashell Villar on 09-09-2023 Monocytes/100 WBC (Bld) 13.3 % . [facility] Neutrophils Auto (Bld) [#/Vo l]Ordered By: Lashell Villar on 09-09-2023 Neutrophils (Bld) [#/Vol] 2.6 10*3/uL 1.8-7.7 [facility] Neutrophils/100 WBC Auto (Bl d)Ordered By: Lashell Villar on 09-09-2023 Neutrophils/100 WBC (Bld) 55.6 % . [facility] No Panel InformationOrdered By: Lashell Villar on 09-09-2023 Estimated GFR (CKD-EPI) > 60.0 mL/Min [facility] Pharmacy Creatinine Clearance (Chem N/A [facility] Nucleated erythrocytes [Pres ence] in Blood by Automated countOrdered By: Lashell Villar on 09-09-2023 Nucleated RBC Auto Ql (Bld) 0.0 /100{WBC} 0-0.5 [facility] Platelet mean volume Auto (B ld) [Entitic vol]Ordered By: Lashell Villar on 09-09-2023 Platelet mean volume (Bld) [Entitic vol] 9.0 fL 6.6-10.1 [facility] Platelets Auto (Bld) [#/Vol] Ordered By: Lashell Villar on 09-09-2023 Platelets (Bld) [#/Vol] 180 10*3/uL 150-450 [facility] Potassium [Moles/volume] in Serum or PlasmaOrdered By: Lashell Villar on 09-09-2023 Potassium [Moles/Vol] 3.8 mmol/L 3.5-5.1 [facility] Protein [Mass/volume] in Ser um or PlasmaOrdered By: Lashell Villar on 09-09-2023 Protein [Mass/Vol] 7.2 g/dL 6.4-8.9 [facility] RBC Auto (Bld) [#/Vol]Ordere d By: Lashell Villar on 09-09-2023 RBC (Bld) [#/Vol] 4.78 10*6/uL 3.90-5.60 [facility] Serum or plasma albumin/glob ulin mass ratioOrdered By: Lashell Villar on 09-09-2023 Albumin/Globulin [Mass ratio] 1.2 {ratio} [facility] Serum or plasma anion gap de terminationOrdered By: Lashell Villar on 09-09-2023 Anion gap [Moles/Vol] 6.8 mmol/L 6.0-15.0 [facility] Sodium [Moles/volume] in Ser um or PlasmaOrdered By: Lashell Villar on 09-09-2023 Sodium [Moles/Vol] 135 mmol/L Low 136-145 [facility] Urea nitrogen [Mass/volume] in Serum or PlasmaOrdered By: Lashell Villar on 09-09-2023 Urea nitrogen [Mass/Vol] 14 mg/dL 09-02 [facility] Vitamin B12 ser/plasOrdered By: Lashell Villar on 09-09-2023 Cobalamin (Vitamin B12) [Mass/Vol] 939 pg/mL High 180-914 [facility] WBC Auto (Bld) [#/Vol]Ordere d By: Lashell Villar on 09-09-2023 WBC (Bld) [#/Vol] 4.7 10*3/uL 4.1-10.5 [facility] Alanine aminotransferase [En zymatic activity/volume] in Serum or PlasmaOrdered By: Lashell Villar on 07-15-2023 ALT [Catalytic activity/Vol] 17 U/L 7 [facility] Albumin [Mass/volume] in Ser um or Plasma by Bromocresol green (BCG) dye binding methoOrdered By: Lashell Villar on 07-15-2023 Albumin BCG dye [Mass/Vol] 3.9 g/dL 3.5-5.7 [facility] Alkaline phosphatase [Enzyma tic activity/volume] in Serum or PlasmaOrdered By: Lashell Villar on 07-15-2023 ALP [Catalytic activity/Vol] 74 U/L 34-104 [facility] Aspartate aminotransferase [ Enzymatic activity/volume] in Serum or PlasmaOrdered By: Lashell Villar on 07-15-2023 AST [Catalytic activity/Vol] 21 U/L 13-39 [facility] Basophils Auto (Bld) [#/Vol] Ordered By: Lashell Villar on 07-15-2023 Basophils (Bld) [#/Vol] 0.0 10*3/uL 0.0-0.2 [facility] Basophils/100 WBC Auto (Bld) Ordered By: Lsahell Villar on 07-15-2023 Basophils/100 WBC (Bld) 0.4 % . [facility] Bilirubin.total [Mass/volume ] in Serum or PlasmaOrdered By: Lashell Villar on 07-15-2023 Bilirubin [Mass/Vol] 0.5 mg/dL 0.3-1.0 [facility] Calcium [Mass/volume] in Ser um or PlasmaOrdered By: Lashell Villar on 07-15-2023 Calcium [Mass/Vol] 10.0 mg/dL 8.6-10.3 [facility] Carbon dioxide, total [Moles /volume] in Serum or PlasmaOrdered By: Lashell Villar on 07-15-2023 CO2 [Moles/Vol] 25.2 mmol/L 21.0-31.0 [facility] Chloride [Moles/volume] in S jessica or PlasmaOrdered By: Lashell Villar on 07-15-2023 Chloride [Moles/Vol] 106 mmol/L 98-107 [facility] Creatinine [Mass/volume] in Serum or PlasmaOrdered By: Lashell Villar on 07-15-2023 Creatinine [Mass/Vol] 0.76 mg/dL 0.70-1.30 [facility] Eosinophils Auto (Bld) [#/Vo l]Ordered By: Lashell Villar on 07-15-2023 Eosinophils (Bld) [#/Vol] 0.2 10*3/uL 0.0-0.45 [facility] Eosinophils/100 WBC Auto (Bl d)Ordered By: Lashell Villar on 07-15-2023 Eosinophils/100 WBC (Bld) 5.5 % . [facility] Erythrocyte distribution wid th Auto (RBC) [Ratio]Ordered By: Lashell Villar on 07-15-2023 Erythrocyte distribution width (RBC) [Ratio] 16.9 % High 12.0-14.8 [facility] Erythrocyte sedimentation ra te by Photometric methodOrdered By: Lashell Villar on 07-15-2023 ESR Photometric method (Bld) [Velocity] 44 mm/hr High 0-19 [facility] Globulin Calc (S) [Mass/Vol] Ordered By: Lashell Villar on 07-15-2023 Globulin (S) [Mass/Vol] 3.2 g/dL [facility] Glucose [Mass/volume] in Ser um or PlasmaOrdered By: Lashell Villar on 07-15-2023 Glucose [Mass/Vol] 98 mg/dL 70-100 [facility] Comment on above: ADA recommended refe rence rangeRandom Glucose Reference Range is dependent on time and content of last meal. Glucose of more than 200 mg/dL in a nonstressed, ambulatory subject supports the diagnosis of Diabetes Mellitus. Hematocrit Auto (Bld) [Volum e fraction]Ordered By: Lashell Villar on 07-15-2023 Hematocrit (Bld) [Volume fraction] 42.3 % 38.8-50.0 [facility] Hemoglobin [Mass/volume] in BloodOrdered By: Lashell Villar on 07-15-2023 Hemoglobin (Bld) [Mass/Vol] 13.8 g/dL 13.0-17.0 [facility] Leukocytes [#/volume] correc constance for nucleated erythrocytes in Blood by Automated counOrdered By: Lashell Villar on 07-15-2023 WBC corrected for nucl RBC Auto (Bld) [#/Vol] 4.4 10*3/uL 4.1-10.5 [facility] Lymphocytes Auto (Bld) [#/Vo l]Ordered By: Lashell Villar on 07-15-2023 Lymphocytes (Bld) [#/Vol] 1.2 10*3/uL 1.00-4.8 [facility] Lymphocytes/100 WBC Auto (Bl d)Ordered By: Lashell Villar on 07-15-2023 Lymphocytes/100 WBC (Bld) 27.7 % . [facility] MCH Auto (RBC) [Entitic mass ]Ordered By: Lashell Villar on 07-15-2023 MCH (RBC) [Entitic mass] 30.1 pg 27.5-35.2 [facility] MCHC Auto (RBC) [Mass/Vol]Or dered By: Lashell Villar on 07-15-2023 MCHC (RBC) [Mass/Vol] 32.6 g/dL 32.5-35.6 [facility] MCV Auto (RBC) [Entitic vol] Ordered By: Lashell Villar on 07-15-2023 MCV (RBC) [Entitic vol] 92.3 fL 83.5-101 [facility] Magnesium [Mass/volume] in S jessica or PlasmaOrdered By: Lashell Villar on 07-15-2023 Magnesium [Mass/Vol] 1.8 mg/dL Low 1.9-2.7 [facility] Monocytes Auto (Bld) [#/Vol] Ordered By: Lashell Villar on 07-15-2023 Monocytes (Bld) [#/Vol] 0.7 10*3/uL 0.0-0.8 [facility] Monocytes/100 WBC Auto (Bld) Ordered By: Lashell Villar on 07-15-2023 Monocytes/100 WBC (Bld) 16.2 % . [facility] Neutrophils Auto (Bld) [#/Vo l]Ordered By: Lashell Villar on 07-15-2023 Neutrophils (Bld) [#/Vol] 2.2 10*3/uL 1.8-7.7 [facility] Neutrophils/100 WBC Auto (Bl d)Ordered By: Lashell Villar on 07-15-2023 Neutrophils/100 WBC (Bld) 50.2 % . [facility] No Panel InformationOrdered By: Lashell Villar on 07-15-2023 Estimated GFR (CKD-EPI) > 60.0 mL/Min [facility] Creatinine Clearance (Chem N/A [facility] Nucleated erythrocytes [Pres ence] in Blood by Automated countOrdered By: Lashell Villar on 07-15-2023 Nucleated RBC Auto Ql (Bld) 0.2 /100{WBC} 0-0.5 [facility] Platelet mean volume Auto (B ld) [Entitic vol]Ordered By: Lashell Villar on 07-15-2023 Platelet mean volume (Bld) [Entitic vol] 9.5 fL 6.6-10.1 [facility] Platelets Auto (Bld) [#/Vol] Ordered By: Lashell Villar on 07-15-2023 Platelets (Bld) [#/Vol] 160 10*3/uL 150-450 [facility] Potassium [Moles/volume] in Serum or PlasmaOrdered By: Lashell Villar on 07-15-2023 Potassium [Moles/Vol] 4.1 mmol/L 3.5-5.1 [facility] Protein [Mass/volume] in Ser um or PlasmaOrdered By: Lashell Villar on 07-15-2023 Protein [Mass/Vol] 7.1 g/dL 6.4-8.9 [facility] RBC Auto (Bld) [#/Vol]Ordere d By: Lashell Villar on 07-15-2023 RBC (Bld) [#/Vol] 4.58 10*6/uL 3.90-5.60 [facility] Serum or plasma albumin/glob ulin mass ratioOrdered By: Lashell Villar on 07-15-2023 Albumin/Globulin [Mass ratio] 1.2 {ratio} [facility] Serum or plasma anion gap de terminationOrdered By: Lashell Villar on 07-15-2023 Anion gap [Moles/Vol] 11.9 mmol/L 6.0-15.0 [facility] Sodium [Moles/volume] in Ser um or PlasmaOrdered By: Lashell Villar on 07-15-2023 Sodium [Moles/Vol] 139 mmol/L 136-145 [facility] Urea nitrogen [Mass/volume] in Serum or PlasmaOrdered By: Lashell Villar on 07-15-2023 Urea nitrogen [Mass/Vol] 14 mg/dL 7-25 [facility] Vitamin B12 ser/plasOrdered By: Lashell Villar on 07-15-2023 Cobalamin (Vitamin B12) [Mass/Vol] 866 pg/mL 180-914 [facility] WBC Auto (Bld) [#/Vol]Ordere d By: Lashell Villar on 07-15-2023 WBC (Bld) [#/Vol] 4.4 10*3/uL 4.1-10.5 [facility] Bacteria identified Aer cx N om (Unsp spec)Ordered By: Evangelista Garsia on 06-30-2023 Superficial Wound Culture Staphylococcus aureus Abnormal [facility] Aspartate aminotransferase [ Enzymatic activity/volume] in Serum or PlasmaOrdered By: Clarke Bertrand on 03-25-2023 AST [Catalytic activity/Vol] 20 U/L [facility] Potassium [Moles/volume] in Serum or PlasmaOrdered By: Clarke Bertrand on 03-25-2023 Potassium [Moles/Vol] 4.0 mmol/L 3.5-5.1 [facility] Alanine aminotransferase [En zymatic activity/volume] in Serum or PlasmaOrdered By: Lashell Villar on 01-28-2023 ALT [Catalytic activity/Vol] 22 U/L [facility] Albumin [Mass/volume] in Ser um or Plasma by Bromocresol green (BCG) dye binding methoOrdered By: Lashell Villar on 01-28-2023 Albumin BCG dye [Mass/Vol] 4.2 g/dL 3.5-5.7 [facility] Alkaline phosphatase [Enzyma tic activity/volume] in Serum or PlasmaOrdered By: Lashell Villar on 01-28-2023 ALP [Catalytic activity/Vol] 63 U/L 34-104 [facility] Aspartate aminotransferase [ Enzymatic activity/volume] in Serum or PlasmaOrdered By: Lashell Villar on 01-28-2023 AST [Catalytic activity/Vol] See comment [facility] [place] Comment on above: Specimen hemolyzed, redraw requested Basophils Auto (Bld) [#/Vol] Ordered By: Lashell Villar on 01-28-2023 Basophils (Bld) [#/Vol] 0.0 10*3/uL 0.0-0.2 [facility] [place] Basophils/100 WBC Auto (Bld) Ordered By: Lashell Villar on 01-28-2023 Basophils/100 WBC (Bld) 0.6 % . [facility] [place] Bilirubin.total [Mass/volume ] in Serum or PlasmaOrdered By: Lashell Villar on 01-28-2023 Bilirubin [Mass/Vol] 0.6 mg/dL 0.3-1.0 [facility] Calcium [Mass/volume] in Ser um or PlasmaOrdered By: Lashell Villar on 01-28-2023 Calcium [Mass/Vol] 9.8 mg/dL 8.6-10.3 [facility] Carbon dioxide, total [Moles /volume] in Serum or PlasmaOrdered By: Lashell Villar on 01-28-2023 CO2 [Moles/Vol] 28.6 mmol/L 21.0-31.0 [facility] Chloride [Moles/volume] in S jessica or PlasmaOrdered By: Lashell Villar on 01-28-2023 Chloride [Moles/Vol] 105 mmol/L 98-107 [facility] Creatinine [Mass/volume] in Serum or PlasmaOrdered By: Lashell Villar on 01-28-2023 Creatinine [Mass/Vol] 0.80 mg/dL 0.70-1.30 [facility] Eosinophils Auto (Bld) [#/Vo l]Ordered By: Lsahell Villar on 01-28-2023 Eosinophils (Bld) [#/Vol] 0.2 10*3/uL 0.0-0.45 [facility] [place] Eosinophils/100 WBC Auto (Bl d)Ordered By: Lashell Villar on 01-28-2023 Eosinophils/100 WBC (Bld) 5.0 % . [facility] [place] Erythrocyte distribution wid th Auto (RBC) [Ratio]Ordered By: Lashell Villar on 01-28-2023 Erythrocyte distribution width (RBC) [Ratio] 16.7 % 12.0-14.8 [facility] [place] Erythrocyte sedimentation ra te by Photometric methodOrdered By: Lashell Villar on 01-28-2023 ESR Photometric method (Bld) [Velocity] 34 mm/hr 0-19 [facility] [place] Globulin Calc (S) [Mass/Vol] Ordered By: Lashell Villar on 01-28-2023 Globulin (S) [Mass/Vol] 2.8 g/dL [facility] [place] Glucose [Mass/volume] in Ser um or PlasmaOrdered By: Lashell Villar on 01-28-2023 Glucose [Mass/Vol] 86 mg/dL 70-100 [facility] Comment on above: ADA recommended refe rence rangeRandom Glucose Reference Range is dependent on time and content of last meal. Glucose of more than 200 mg/dL in a nonstressed, ambulatory subject supports the diagnosis of Diabetes Mellitus. Hematocrit Auto (Bld) [Volum e fraction]Ordered By: Lashell Villar on 01-28-2023 Hematocrit (Bld) [Volume fraction] 42.5 % 38.8-50.0 [facility] [place] Hemoglobin [Mass/volume] in BloodOrdered By: Lashell Villar on 01-28-2023 Hemoglobin (Bld) [Mass/Vol] 14.1 g/dL 13.0-17.0 [facility] [place] Leukocytes [#/volume] correc constance for nucleated erythrocytes in Blood by Automated counOrdered By: Lashell Villar on 01-28-2023 WBC corrected for nucl RBC Auto (Bld) [#/Vol] 4.5 10*3/uL 4.1-10.5 [facility] [place] Lymphocytes Auto (Bld) [#/Vo l]Ordered By: Lashell Villar on 01-28-2023 Lymphocytes (Bld) [#/Vol] 1.0 10*3/uL 1.00-4.8 [facility] [place] Lymphocytes/100 WBC Auto (Bl d)Ordered By: Lashell Villar on 01-28-2023 Lymphocytes/100 WBC (Bld) 22.6 % . [facility] [place] MCH Auto (RBC) [Entitic mass ]Ordered By: Lashell Villar on 01-28-2023 MCH (RBC) [Entitic mass] 31.1 pg 27.5-35.2 [facility] [place] MCHC Auto (RBC) [Mass/Vol]Or dered By: Lashell Villar on 01-28-2023 MCHC (RBC) [Mass/Vol] 33.3 g/dL 32.5-35.6 [facility] MCV Auto (RBC) [Entitic vol] Ordered By: Lashell Villar on 01-28-2023 MCV (RBC) [Entitic vol] 93.3 fL 83.5-101 [facility] [place] Monocytes Auto (Bld) [#/Vol] Ordered By: Lashell Villar on 01-28-2023 Monocytes (Bld) [#/Vol] 0.8 10*3/uL 0.0-0.8 [facility] [place] Monocytes/100 WBC Auto (Bld) Ordered By: Lashell Villar on 01-28-2023 Monocytes/100 WBC (Bld) 16.5 % . [facility] [place] Neutrophils Auto (Bld) [#/Vo l]Ordered By: Lashell Villar on 01-28-2023 Neutrophils (Bld) [#/Vol] 2.5 10*3/uL 1.8-7.7 [facility] [place] Neutrophils/100 WBC Auto (Bl d)Ordered By: Lashell Villar on 01-28-2023 Neutrophils/100 WBC (Bld) 55.3 % . [facility] [place] No Panel InformationOrdered By: Lashell Villar on 01-28-2023 Estimated GFR (CKD-EPI) > 60.0 mL/Min [facility] [place] Pharm[facility] Creatinine Clearance (Chem N/A [facility] [place] Nucleated erythrocytes [Pres ence] in Blood by Automated countOrdered By: Lashell Villar on 01-28-2023 Nucleated RBC Auto Ql (Bld) 0.3 /100{WBC} 0-0.5 [facility] [place] Platelet mean volume Auto (B ld) [Entitic vol]Ordered By: Lashell Villar on 01-28-2023 Platelet mean volume (Bld) [Entitic vol] 9.3 fL 6.6-10.1 [facility] [place] Platelets Auto (Bld) [#/Vol] Ordered By: Lashell Villar on 01-28-2023 Platelets (Bld) [#/Vol] 162 10*3/uL 150-450 [facility] [place] Potassium [Moles/volume] in Serum or PlasmaOrdered By: Lashell Villar on 01-28-2023 Potassium [Moles/Vol] See comment 3.5-5.1 [facility] Comment on above: Specimen hemolyzed, redraw requested Protein [Mass/volume] in Ser um or PlasmaOrdered By: Lashell Villar on 01-28-2023 Protein [Mass/Vol] 7.0 g/dL 6.4-8.9 [facility] RBC Auto (Bld) [#/Vol]Ordere d By: Lashell Villar on 01-28-2023 RBC (Bld) [#/Vol] 4.55 10*6/uL 3.90-5.60 [facility] Serum or plasma albumin/glob ulin mass ratioOrdered By: Lashell Villar on 01-28-2023 Albumin/Globulin [Mass ratio] 1.5 {ratio} [facility] [place] Serum or plasma anion gap de terminationOrdered By: Lashell Villar on 01-28-2023 Anion gap [Moles/Vol] TNP [facility] Comment on above: Test not performed Sodium [Moles/volume] in Ser um or PlasmaOrdered By: Lashell Villar on 01-28-2023 Sodium [Moles/Vol] 140 mmol/L 136-145 [facility] Urea nitrogen [Mass/volume] in Serum or PlasmaOrdered By: Lashell Villar on 01-28-2023 Urea nitrogen [Mass/Vol] 14 mg/dL 7-25 [facility] [place] WBC Auto (Bld) [#/Vol]Ordere d By: Lashell Villar on 01-28-2023 WBC (Bld) [#/Vol] 4.5 10*3/uL 4.1-10.5 [facility] Alanine aminotransferase [En zymatic activity/volume] in Serum or PlasmaOrdered By: Clarke Bertrand on 12-03-2022 ALT [Catalytic activity/Vol] 20 U/L 7-52 [facility] [place] Albumin [Mass/volume] in Ser um or Plasma by Bromocresol green (BCG) dye binding methoOrdered By: Clarke Bertrand on 12-03-2022 Albumin BCG dye [Mass/Vol] 4.0 g/dL 3.5-5.7 [facility] [place] Alkaline phosphatase [Enzyma tic activity/volume] in Serum or PlasmaOrdered By: Clarke Bertrand on 12-03-2022 ALP [Catalytic activity/Vol] 73 U/L 34-104 [facility] [place] Aspartate aminotransferase [ Enzymatic activity/volume] in Serum or PlasmaOrdered By: Clarke Bertrand on 12-03-2022 AST [Catalytic activity/Vol] 23 U/L 13-39 [facility] [place] Basophils Auto (Bld) [#/Vol] Ordered By: Clarke Bertrand on 12-03-2022 Basophils (Bld) [#/Vol] 0.0 10*3/uL 0.0-0.2 [facility] [place] Basophils/100 WBC Auto (Bld) Ordered By: Clarke Bertrand on 12-03-2022 Basophils/100 WBC (Bld) 0.5 % . [facility] [place] Bilirubin.total [Mass/volume ] in Serum or PlasmaOrdered By: Clarke Bertrand on 12-03-2022 Bilirubin [Mass/Vol] 0.6 mg/dL 0.3-1.0 [facility] Calcium [Mass/volume] in Ser um or PlasmaOrdered By: Clarke Bertrand on 12-03-2022 Calcium [Mass/Vol] 9.5 mg/dL 8.6-10.3 [facility] Carbon dioxide, total [Moles /volume] in Serum or PlasmaOrdered By: Clarke Bertrand on 12-03-2022 CO2 [Moles/Vol] 26.5 mmol/L 21.0-31.0 [facility] Chloride [Moles/volume] in S jessica or PlasmaOrdered By: Clarke Bertrand on 12-03-2022 Chloride [Moles/Vol] 106 mmol/L 98-107 [facility] Creatinine [Mass/volume] in Serum or PlasmaOrdered By: Clarke Bertrand on 12-03-2022 Creatinine [Mass/Vol] 0.81 mg/dL 0.70-1.30 [facility] Eosinophils Auto (Bld) [#/Vo l]Ordered By: Clarke Bertrand on 12-03-2022 Eosinophils (Bld) [#/Vol] 0.2 10*3/uL 0.0-0.45 [facility] [place] Eosinophils/100 WBC Auto (Bl d)Ordered By: Clarke Bertrand on 12-03-2022 Eosinophils/100 WBC (Bld) 5.0 % . [facility] [place] Erythrocyte distribution wid th Auto (RBC) [Ratio]Ordered By: Clarke Bertrand on 12-03-2022 Erythrocyte distribution width (RBC) [Ratio] 16.8 % 12.0-14.8 [facility] [place] Erythrocyte sedimentation ra te by Photometric methodOrdered By: Clarke Bertrand on 12-03-2022 ESR Photometric method (Bld) [Velocity] 47 mm/hr 0-19 [facility] [place] Globulin Calc (S) [Mass/Vol] Ordered By: Clarke Bertrand on 12-03-2022 Globulin (S) [Mass/Vol] 3.0 g/dL [facility] [place] Glucose [Mass/volume] in Ser um or PlasmaOrdered By: Clarke Bertrand on 12-03-2022 Glucose [Mass/Vol] 87 mg/dL 70-100 [facility] Comment on above: ADA recommended refe rence rangeRandom Glucose Reference Range is dependent on time and content of last meal. Glucose of more than 200 mg/dL in a nonstressed, ambulatory subject supports the diagnosis of Diabetes Mellitus. Hematocrit Auto (Bld) [Volum e fraction]Ordered By: Clarke Bertrand on 12-03-2022 Hematocrit (Bld) [Volume fraction] 42.5 % 38.8-50.0 [facility] [place] Hemoglobin [Mass/volume] in BloodOrdered By: Clarke Bertrand on 12-03-2022 Hemoglobin (Bld) [Mass/Vol] 14.1 g/dL 13.0-17.0 [facility] [place] Leukocytes [#/volume] correc constance for nucleated erythrocytes in Blood by Automated counOrdered By: Clarke Bertrand on 12-03-2022 WBC corrected for nucl RBC Auto (Bld) [#/Vol] 4.4 10*3/uL 4.1-10.5 [facility] [place] Lymphocytes Auto (Bld) [#/Vo l]Ordered By: Clarke Bertrand on 12-03-2022 Lymphocytes (Bld) [#/Vol] 1.1 10*3/uL 1.00-4.8 [facility] [place] Lymphocytes/100 WBC Auto (Bl d)Ordered By: Clarke Bertrand on 12-03-2022 Lymphocytes/100 WBC (Bld) 26.0 % . [facility] [place] MCH Auto (RBC) [Entitic mass ]Ordered By: Clarke Bertrand on 12-03-2022 MCH (RBC) [Entitic mass] 31.2 pg 27.5-35.2 [facility] [place] MCHC Auto (RBC) [Mass/Vol]Or dered By: Clarke Bertrand on 12-03-2022 MCHC (RBC) [Mass/Vol] 33.2 g/dL 32.5-35.6 [facility] MCV Auto (RBC) [Entitic vol] Ordered By: Clarke Bertrand on 12-03-2022 MCV (RBC) [Entitic vol] 93.9 fL 83.5-101 [facility] [place] Monocytes Auto (Bld) [#/Vol] Ordered By: Clarke Bertrand on 12-03-2022 Monocytes (Bld) [#/Vol] 0.7 10*3/uL 0.0-0.8 [facility] [place] Monocytes/100 WBC Auto (Bld) Ordered By: Clarke Bertrand on 12-03-2022 Monocytes/100 WBC (Bld) 16.5 % . [facility] [place] Neutrophils Auto (Bld) [#/Vo l]Ordered By: Clarke Bertrand on 12-03-2022 Neutrophils (Bld) [#/Vol] 2.3 10*3/uL 1.8-7.7 [facility] [place] Neutrophils/100 WBC Auto (Bl d)Ordered By: Clarke Bertrand on 12-03-2022 Neutrophils/100 WBC (Bld) 52.0 % . [facility] [place] No Panel InformationOrdered By: Clarke Bertrand on 12-03-2022 Estimated GFR (CKD-EPI) > 60.0 mL/Min [facility] [place] Pharmacy Creatinine Clearance (Chem N/A [facility] [place] Nucleated erythrocytes [Pres ence] in Blood by Automated countOrdered By: Clarke Bertrand on 12-03-2022 Nucleated RBC Auto Ql (Bld) 0.2 /100{WBC} 0-0.5 [facility] [place] Platelet adequacy [Presence] in Blood by Light microscopyOrdered By: Clarke Bertrand on 12-03-2022 Platelets LM Ql (Bld) Normal Normal [facility] Platelet mean volume Auto (B ld) [Entitic vol]Ordered By: Clarke Bertrand on 12-03-2022 Platelet mean volume (Bld) [Entitic vol] 9.6 fL 6.6-10.1 [facility] [place] Platelet morphology finding [Identifier] in BloodOrdered By: Clarke Bertrand on 12-03-2022 Platelet morphology finding Nom (Bld) Normal Normal [facility] [place] Platelets Auto (Bld) [#/Vol] Ordered By: Clarke Bertrand on 12-03-2022 Platelets (Bld) [#/Vol] 132 10*3/uL 150-450 [facility] [place] Potassium [Moles/volume] in Serum or PlasmaOrdered By: Clarke Bertrand on 12-03-2022 Potassium [Moles/Vol] 4.0 mmol/L 3.5-5.1 [facility] Protein [Mass/volume] in Ser um or PlasmaOrdered By: Clarke Bertrand on 12-03-2022 Protein [Mass/Vol] 7.0 g/dL 6.4-8.9 [facility] RBC Auto (Bld) [#/Vol]Ordere d By: Clarke Bertrand on 12-03-2022 RBC (Bld) [#/Vol] 4.53 10*6/uL 3.90-5.60 [facility] RBC morphologyOrdered By: Christopher ttnaomi Bertrand on 12-03-2022 RBC morphology finding Nom (Bld) Normal Normal [facility] [place] Serum or plasma albumin/glob ulin mass ratioOrdered By: Clarke Bertrand on 12-03-2022 Albumin/Globulin [Mass ratio] 1.3 {ratio} [facility] [place] Serum or plasma anion gap de terminationOrdered By: Clarke Bertrand on 12-03-2022 Anion gap [Moles/Vol] 11.5 mmol/L 6.0-15.0 [facility] Sodium [Moles/volume] in Ser um or PlasmaOrdered By: Clarke Bertrand on 12-03-2022 Sodium [Moles/Vol] 140 mmol/L 136-145 [facility] Urea nitrogen [Mass/volume] in Serum or PlasmaOrdered By: Clarke Bertrand on 12-03-2022 Urea nitrogen [Mass/Vol] 11 mg/dL 09-02 [facility] [place] WBC Auto (Bld) [#/Vol]Ordere d By: Clarke Bertrand on 12-03-2022 WBC (Bld) [#/Vol] 4.4 10*3/uL 4.1-10.5 [facility] Alanine aminotransferase [En zymatic activity/volume] in Serum or PlasmaOrdered By: Lashell Villar on 10-08-2022 ALT [Catalytic activity/Vol] 24 U/L 7-52 [facility] [place] Albumin [Mass/volume] in Ser um or Plasma by Bromocresol green (BCG) dye binding methoOrdered By: Lashell Villar on 10-08-2022 Albumin BCG dye [Mass/Vol] 4.2 g/dL 3.5-5.7 [facility] [place] Alkaline phosphatase [Enzyma tic activity/volume] in Serum or PlasmaOrdered By: Lashell Villar on 10-08-2022 ALP [Catalytic activity/Vol] 69 U/L 34-104 [facility] [place] Aspartate aminotransferase [ Enzymatic activity/volume] in Serum or PlasmaOrdered By: Lashell Villar on 10-08-2022 AST [Catalytic activity/Vol] 32 U/L 13-39 [facility] [place] Basophils Auto (Bld) [#/Vol] Ordered By: Lashell Villar on 10-08-2022 Basophils (Bld) [#/Vol] 0.0 10*3/uL 0.0-0.2 [facility] [place] Basophils/100 WBC Auto (Bld) Ordered By: Lashell Villar on 10-08-2022 Basophils/100 WBC (Bld) 0.6 % . [facility] [place] Bilirubin.total [Mass/volume ] in Serum or PlasmaOrdered By: Lashell Villar on 10-08-2022 Bilirubin [Mass/Vol] 0.6 mg/dL 0.3-1.0 [facility] Calcium [Mass/volume] in Ser um or PlasmaOrdered By: Lashell Villar on 10-08-2022 Calcium [Mass/Vol] 10.0 mg/dL 8.6-10.3 [facility] Carbon dioxide, total [Moles /volume] in Serum or PlasmaOrdered By: Lashell Villar on 10-08-2022 CO2 [Moles/Vol] 27.6 mmol/L 21.0-31.0 [facility] Chloride [Moles/volume] in S jessica or PlasmaOrdered By: Lashell Villar on 10-08-2022 Chloride [Moles/Vol] 103 mmol/L 98-107 [facility] Creatinine [Mass/volume] in Serum or PlasmaOrdered By: Lashell Villar on 10-08-2022 Creatinine [Mass/Vol] 0.79 mg/dL 0.70-1.30 [facility] Eosinophils Auto (Bld) [#/Vo l]Ordered By: Lashell Villar on 10-08-2022 Eosinophils (Bld) [#/Vol] 0.2 10*3/uL 0.0-0.45 [facility] [place] Eosinophils/100 WBC Auto (Bl d)Ordered By: Lashell Villar on 10-08-2022 Eosinophils/100 WBC (Bld) 4.5 % . [facility] [place] Erythrocyte distribution wid th Auto (RBC) [Ratio]Ordered By: Lashell Villar on 10-08-2022 Erythrocyte distribution width (RBC) [Ratio] 16.8 % 12.0-14.8 [facility] [place] Erythrocyte sedimentation ra te by Photometric methodOrdered By: Lashell Villar on 10-08-2022 ESR Photometric method (Bld) [Velocity] 36 mm/hr 0-19 [facility] [place] Globulin Calc (S) [Mass/Vol] Ordered By: Lashell Villar on 10-08-2022 Globulin (S) [Mass/Vol] 3.3 g/dL [facility] [place] Glucose [Mass/volume] in Ser um or PlasmaOrdered By: Lashell Villar on 10-08-2022 Glucose [Mass/Vol] 87 mg/dL 70-100 [facility] Comment on above: ADA recommended refe rence rangeRandom Glucose Reference Range is dependent on time and content of last meal. Glucose of more than 200 mg/dL in a nonstressed, ambulatory subject supports the diagnosis of Diabetes Mellitus. Hematocrit Auto (Bld) [Volum e fraction]Ordered By: Lashell Villar on 10-08-2022 Hematocrit (Bld) [Volume fraction] 42.1 % 38.8-50.0 [facility] [place] Hemoglobin [Mass/volume] in BloodOrdered By: Lashell Villar on 10-08-2022 Hemoglobin (Bld) [Mass/Vol] 14.0 g/dL 13.0-17.0 [facility] [place] Leukocytes [#/volume] correc constance for nucleated erythrocytes in Blood by Automated counOrdered By: Lashell Villar on 10-08-2022 WBC corrected for nucl RBC Auto (Bld) [#/Vol] 4.7 10*3/uL 4.1-10.5 [facility] [place] Lymphocytes Auto (Bld) [#/Vo l]Ordered By: Lashell Villar on 10-08-2022 Lymphocytes (Bld) [#/Vol] 1.2 10*3/uL 1.00-4.8 [facility] [place] Lymphocytes/100 WBC Auto (Bl d)Ordered By: Lashell Villar on 10-08-2022 Lymphocytes/100 WBC (Bld) 24.4 % . [facility] [place] MCH Auto (RBC) [Entitic mass ]Ordered By: Lashell Villar on 10-08-2022 MCH (RBC) [Entitic mass] 31.4 pg 27.5-35.2 [facility] [place] MCHC Auto (RBC) [Mass/Vol]Or dered By: Lashell Villar on 10-08-2022 MCHC (RBC) [Mass/Vol] 33.3 g/dL 32.5-35.6 [facility] MCV Auto (RBC) [Entitic vol] Ordered By: Lashell Villar on 10-08-2022 MCV (RBC) [Entitic vol] 94.1 fL 83.5-101 [facility] [place] Monocytes Auto (Bld) [#/Vol] Ordered By: Lashell Villar on 10-08-2022 Monocytes (Bld) [#/Vol] 0.7 10*3/uL 0.0-0.8 [facility] [place] Monocytes/100 WBC Auto (Bld) Ordered By: Lashell Villar on 10-08-2022 Monocytes/100 WBC (Bld) 14.9 % . [facility] [place] Neutrophils Auto (Bld) [#/Vo l]Ordered By: Lashell Villar on 10-08-2022 Neutrophils (Bld) [#/Vol] 2.6 10*3/uL 1.8-7.7 [facility] [place] Neutrophils/100 WBC Auto (Bl d)Ordered By: Lashell Villar on 10-08-2022 Neutrophils/100 WBC (Bld) 55.6 % . [facility] [place] No Panel InformationOrdered By: Lashell Villar on 10-08-2022 Estimated GFR (CKD-EPI) > 60.0 mL/Min [facility] [place] [facility] Creatinine Clearance (Chem N/A [facility] [place] Nucleated erythrocytes [Pres ence] in Blood by Automated countOrdered By: Lashell Villar on 10-08-2022 Nucleated RBC Auto Ql (Bld) 0.2 /100{WBC} 0-0.5 [facility] [place] Platelet mean volume Auto (B ld) [Entitic vol]Ordered By: Lashell Villar on 10-08-2022 Platelet mean volume (Bld) [Entitic vol] 9.5 fL 6.6-10.1 [facility] [place] Platelets Auto (Bld) [#/Vol] Ordered By: Lashell Villar on 10-08-2022 Platelets (Bld) [#/Vol] 148 10*3/uL 150-450 [facility] [place] Potassium [Moles/volume] in Serum or PlasmaOrdered By: Lashell Villar on 10-08-2022 Potassium [Moles/Vol] 3.8 mmol/L 3.5-5.1 [facility] Protein [Mass/volume] in Ser um or PlasmaOrdered By: Lashell Villar on 10-08-2022 Protein [Mass/Vol] 7.5 g/dL 6.4-8.9 [facility] RBC Auto (Bld) [#/Vol]Ordere d By: Lashell Villar on 10-08-2022 RBC (Bld) [#/Vol] 4.47 10*6/uL 3.90-5.60 [facility] Serum or plasma albumin/glob ulin mass ratioOrdered By: Lashell Villar on 10-08-2022 Albumin/Globulin [Mass ratio] 1.3 {ratio} [facility] [place] Serum or plasma anion gap de terminationOrdered By: Lashell Villar on 10-08-2022 Anion gap [Moles/Vol] 11.2 mmol/L 6.0-15.0 [facility] Sodium [Moles/volume] in Ser um or PlasmaOrdered By: Lashell Villar on 10-08-2022 Sodium [Moles/Vol] 138 mmol/L 136-145 [facility] Urea nitrogen [Mass/volume] in Serum or PlasmaOrdered By: Lashell Villar on 10-08-2022 Urea nitrogen [Mass/Vol] 14 mg/dL 09-02 [facility] [place] WBC Auto (Bld) [#/Vol]Ordere d By: Lashell Villar on 10-08-2022 WBC (Bld) [#/Vol] 4.7 10*3/uL 4.1-10.5 [facility] Alanine aminotransferase [En zymatic activity/volume] in Serum or PlasmaOrdered By: Lashell Villar on 06-18-2022 ALT [Catalytic activity/Vol] 25 U/L [facility] [place] Albumin [Mass/volume] in Ser um or Plasma by Bromocresol green (BCG) dye binding methoOrdered By: Lashell Villar on 06-18-2022 Albumin BCG dye [Mass/Vol] 4.1 g/dL 3.5-5.7 [facility] [place] Alkaline phosphatase [Enzyma tic activity/volume] in Serum or PlasmaOrdered By: Lashell Villar on 06-18-2022 ALP [Catalytic activity/Vol] 68 U/L 34-104 [facility] [place] Aspartate aminotransferase [ Enzymatic activity/volume] in Serum or PlasmaOrdered By: Lashell Villar on 06-18-2022 AST [Catalytic activity/Vol] 33 U/L 13-39 [facility] [place] Basophils Auto (Bld) [#/Vol] Ordered By: Lashell Villar on 06-18-2022 Basophils (Bld) [#/Vol] 0.0 10*3/uL 0.0-0.2 [facility] [place] Basophils/100 WBC Auto (Bld) Ordered By: Lashell Villar on 06-18-2022 Basophils/100 WBC (Bld) 0.5 % . [facility] [place] Bilirubin.total [Mass/volume ] in Serum or PlasmaOrdered By: Lashell Villar on 06-18-2022 Bilirubin [Mass/Vol] 0.5 mg/dL 0.3-1.0 [facility] Calcium [Mass/volume] in Ser um or PlasmaOrdered By: Lashell Villar on 06-18-2022 Calcium [Mass/Vol] 9.7 mg/dL 8.6-10.3 [facility] Carbon dioxide, total [Moles /volume] in Serum or PlasmaOrdered By: Lashell Villar on 06-18-2022 CO2 [Moles/Vol] 27.2 mmol/L 21.0-31.0 [facility] Chloride [Moles/volume] in S jessica or PlasmaOrdered By: Lashell Villar on 06-18-2022 Chloride [Moles/Vol] 105 mmol/L 98-107 [facility] Creatinine [Mass/volume] in Serum or PlasmaOrdered By: Lashell Villar on 06-18-2022 Creatinine [Mass/Vol] 0.81 mg/dL 0.70-1.30 [facility] Eosinophils Auto (Bld) [#/Vo l]Ordered By: Lashell Villar on 06-18-2022 Eosinophils (Bld) [#/Vol] 0.2 10*3/uL 0.0-0.45 [facility] Eosinophils/100 WBC Auto (Bl d)Ordered By: Lashell Villar on 06-18-2022 Eosinophils/100 WBC (Bld) 4.6 % . [facility] Erythrocyte distribution wid th Auto (RBC) [Ratio]Ordered By: Lashell Villar on 06-18-2022 Erythrocyte distribution width (RBC) [Ratio] 16.1 % 12.0-14.8 [facility] Erythrocyte sedimentation ra te by Photometric methodOrdered By: Lashell Villar on 06-18-2022 ESR Photometric method (Bld) [Velocity] 40 mm/hr 0-19 [facility] Globulin Calc (S) [Mass/Vol] Ordered By: Lashell Villar on 06-18-2022 Globulin (S) [Mass/Vol] 3.1 g/dL [facility] [place] Glucose [Mass/volume] in Ser um or PlasmaOrdered By: Lashell Villar on 06-18-2022 Glucose [Mass/Vol] 75 mg/dL 70-100 [facility] Comment on above: ADA recommended refe rence rangeRandom Glucose Reference Range is dependent on time and content of last meal. Glucose of more than 200 mg/dL in a nonstressed, ambulatory subject supports the diagnosis of Diabetes Mellitus. Hematocrit Auto (Bld) [Volum e fraction]Ordered By: Lashell Villar on 06-18-2022 Hematocrit (Bld) [Volume fraction] 43.6 % 38.8-50.0 [facility] Hemoglobin [Mass/volume] in BloodOrdered By: Lashell Villar on 06-18-2022 Hemoglobin (Bld) [Mass/Vol] 14.3 g/dL 13.0-17.0 [facility] [place] Leukocytes [#/volume] correc constance for nucleated erythrocytes in Blood by Automated counOrdered By: Lashell Villar on 06-18-2022 WBC corrected for nucl RBC Auto (Bld) [#/Vol] 4.2 10*3/uL 4.1-10.5 [facility] Lymphocytes Auto (Bld) [#/Vo l]Ordered By: Lashell Villar on 06-18-2022 Lymphocytes (Bld) [#/Vol] 1.1 10*3/uL 1.00-4.8 [facility] Lymphocytes/100 WBC Auto (Bl d)Ordered By: Lashell Villar on 06-18-2022 Lymphocytes/100 WBC (Bld) 26.9 % . [facility] MCH Auto (RBC) [Entitic mass ]Ordered By: Lashell Villar on 06-18-2022 MCH (RBC) [Entitic mass] 30.8 pg 27.5-35.2 [facility] MCHC Auto (RBC) [Mass/Vol]Or dered By: Lashell Villar on 06-18-2022 MCHC (RBC) [Mass/Vol] 32.8 g/dL 32.5-35.6 [facility] MCV Auto (RBC) [Entitic vol] Ordered By: Lashell Villar on 06-18-2022 MCV (RBC) [Entitic vol] 93.9 fL 83.5-101 [facility] Monocytes Auto (Bld) [#/Vol] Ordered By: Lashell Villar on 06-18-2022 Monocytes (Bld) [#/Vol] 0.7 10*3/uL 0.0-0.8 [facility] Monocytes/100 WBC Auto (Bld) Ordered By: Lashell Villar on 06-18-2022 Monocytes/100 WBC (Bld) 16.6 % . [facility] Neutrophils Auto (Bld) [#/Vo l]Ordered By: Lashell Villar on 06-18-2022 Neutrophils (Bld) [#/Vol] 2.2 10*3/uL 1.8-7.7 [facility] [place] Neutrophils/100 WBC Auto (Bl d)Ordered By: Lashell Villar on 06-18-2022 Neutrophils/100 WBC (Bld) 51.4 % . [facility] No Panel InformationOrdered By: Lashell Villar on 06-18-2022 Estimated GFR (CKD-EPI) > 60.0 mL/Min [facility] Pharmacy Creatinine Clearance (Chem N/A [facility] Nucleated erythrocytes [Pres ence] in Blood by Automated countOrdered By: Lashell Villar on 06-18-2022 Nucleated RBC Auto Ql (Bld) 0.1 /100{WBC} 0-0.5 [facility] Platelet mean volume Auto (B ld) [Entitic vol]Ordered By: Lashell Villar on 06-18-2022 Platelet mean volume (Bld) [Entitic vol] 9.2 fL 6.6-10.1 [facility] [place] Platelets Auto (Bld) [#/Vol] Ordered By: Lashell Villar on 06-18-2022 Platelets (Bld) [#/Vol] 145 10*3/uL 150-450 [facility] [place] Potassium [Moles/volume] in Serum or PlasmaOrdered By: Lashell Villar on 06-18-2022 Potassium [Moles/Vol] 3.8 mmol/L 3.5-5.1 [facility] Protein [Mass/volume] in Ser um or PlasmaOrdered By: Lashell Villar on 06-18-2022 Protein [Mass/Vol] 7.2 g/dL 6.4-8.9 [facility] RBC Auto (Bld) [#/Vol]Ordere d By: Lashell Villar on 06-18-2022 RBC (Bld) [#/Vol] 4.64 10*6/uL 3.90-5.60 [facility] Serum or plasma albumin/glob ulin mass ratioOrdered By: Lashell Villar on 06-18-2022 Albumin/Globulin [Mass ratio] 1.3 {ratio} [facility] Serum or plasma anion gap de terminationOrdered By: Lashell Villar on 06-18-2022 Anion gap [Moles/Vol] 11.6 mmol/L 6.0-15.0 [facility] Sodium [Moles/volume] in Ser um or PlasmaOrdered By: Lashell Villar on 06-18-2022 Sodium [Moles/Vol] 140 mmol/L 136-145 [facility] Urea nitrogen [Mass/volume] in Serum or PlasmaOrdered By: Lashell Villar on 06-18-2022 Urea nitrogen [Mass/Vol] 15 mg/dL 7-25 [facility] WBC Auto (Bld) [#/Vol]Ordere d By: Lashell Villar on 06-18-2022 WBC (Bld) [#/Vol] 4.2 10*3/uL 4.1-10.5 [facility] Alanine aminotransferase [En zymatic activity/volume] in Serum or PlasmaOrdered By: Lashell Villar on 04-23-2022 ALT [Catalytic activity/Vol] 21 U/L 7-52 [facility] Albumin [Mass/volume] in Ser um or Plasma by Bromocresol green (BCG) dye binding methoOrdered By: Lashell Villar on 04-23-2022 Albumin BCG dye [Mass/Vol] 4.3 g/dL 3.5-5.7 [facility] Alkaline phosphatase [Enzyma tic activity/volume] in Serum or PlasmaOrdered By: Lashell Villar on 04-23-2022 ALP [Catalytic activity/Vol] 62 U/L 34-104 [facility] [place] Aspartate aminotransferase [ Enzymatic activity/volume] in Serum or PlasmaOrdered By: Lashell Villar on 04-23-2022 AST [Catalytic activity/Vol] 24 U/L 13-39 [facility] [place] Basophils Auto (Bld) [#/Vol] Ordered By: Lashell Villar on 04-23-2022 Basophils (Bld) [#/Vol] 0.0 10*3/uL 0.0-0.2 [facility] Basophils/100 WBC Auto (Bld) Ordered By: Lashell Villar on 04-23-2022 Basophils/100 WBC (Bld) 0.3 % . [facility] Bilirubin.total [Mass/volume ] in Serum or PlasmaOrdered By: Lashell Villar on 04-23-2022 Bilirubin [Mass/Vol] 0.7 mg/dL 0.3-1.0 [facility] Calcium [Mass/volume] in Ser um or PlasmaOrdered By: Lashell Villar on 04-23-2022 Calcium [Mass/Vol] 10.4 mg/dL 8.6-10.3 [facility] Carbon dioxide, total [Moles /volume] in Serum or PlasmaOrdered By: Lashell Villar on 04-23-2022 CO2 [Moles/Vol] 23.5 mmol/L 21.0-31.0 [facility] Chloride [Moles/volume] in S jessica or PlasmaOrdered By: Lashell Villar on 04-23-2022 Chloride [Moles/Vol] 106 mmol/L 98-107 [facility] Creatinine [Mass/volume] in Serum or PlasmaOrdered By: Lashell Villar on 04-23-2022 Creatinine [Mass/Vol] 0.82 mg/dL 0.70-1.30 [facility] Eosinophils Auto (Bld) [#/Vo l]Ordered By: Lashell Villar on 04-23-2022 Eosinophils (Bld) [#/Vol] 0.2 10*3/uL 0.0-0.45 [facility] Eosinophils/100 WBC Auto (Bl d)Ordered By: Lashell Villar on 04-23-2022 Eosinophils/100 WBC (Bld) 2.9 % . [facility] Erythrocyte distribution wid th Auto (RBC) [Ratio]Ordered By: Lashell Villar on 04-23-2022 Erythrocyte distribution width (RBC) [Ratio] 16.2 % 12.0-14.8 [facility] Erythrocyte sedimentation ra te by Photometric methodOrdered By: Lashell Villar on 04-23-2022 ESR Photometric method (Bld) [Velocity] 50 mm/hr 0-19 [facility] Globulin Calc (S) [Mass/Vol] Ordered By: Lashell Villar on 04-23-2022 Globulin (S) [Mass/Vol] 2.9 g/dL [facility] Glucose [Mass/volume] in Ser um or PlasmaOrdered By: Lashell Villar on 04-23-2022 Glucose [Mass/Vol] 91 mg/dL 74-109 [facility] Comment on above: ADA recommended refe rence rangeRandom Glucose Reference Range is dependent on time and content of last meal. Glucose of more than 200 mg/dL in a nonstressed, ambulatory subject supports the diagnosis of Diabetes Mellitus. Hematocrit Auto (Bld) [Volum e fraction]Ordered By: Lashell Villar on 04-23-2022 Hematocrit (Bld) [Volume fraction] 41.7 % 38.8-50.0 [facility] Hemoglobin [Mass/volume] in BloodOrdered By: Lashell Villar on 04-23-2022 Hemoglobin (Bld) [Mass/Vol] 14.0 g/dL 13.0-17.0 [facility] Laboratory - Chemistry and C hemistry - challengeOrdered By: Lashell Villar on 04-23-2022 GFR/1.73 sq M.predicted MDRD (S/P/Bld) [Vol rate/Area] mL/min/{1.73_m2} [facility] Leukocytes [#/volume] correc constance for nucleated erythrocytes in Blood by Automated counOrdered By: Lashell Villar on 04-23-2022 WBC corrected for nucl RBC Auto (Bld) [#/Vol] 6.1 10*3/uL 4.1-10.5 [facility] [place] Lymphocytes Auto (Bld) [#/Vo l]Ordered By: Lashell Villar on 04-23-2022 Lymphocytes (Bld) [#/Vol] 1.3 10*3/uL 1.00-4.8 [facility] [place] Lymphocytes/100 WBC Auto (Bl d)Ordered By: Lashell Villar on 04-23-2022 Lymphocytes/100 WBC (Bld) 20.6 % . [facility] MCH Auto (RBC) [Entitic mass ]Ordered By: Lashell Villar on 04-23-2022 MCH (RBC) [Entitic mass] 31.1 pg 27.5-35.2 [facility] MCHC Auto (RBC) [Mass/Vol]Or dered By: Lashell Villar on 04-23-2022 MCHC (RBC) [Mass/Vol] 33.7 g/dL 32.5-35.6 [facility] MCV Auto (RBC) [Entitic vol] Ordered By: Lashell Villra on 04-23-2022 MCV (RBC) [Entitic vol] 92.4 fL 83.5-101 [facility] Monocytes Auto (Bld) [#/Vol] Ordered By: Lashell Villar on 04-23-2022 Monocytes (Bld) [#/Vol] 0.7 10*3/uL 0.0-0.8 [facility] Monocytes/100 WBC Auto (Bld) Ordered By: Lashell Villar on 04-23-2022 Monocytes/100 WBC (Bld) 11.0 % . [facility] Neutrophils Auto (Bld) [#/Vo l]Ordered By: Lashell Villar on 04-23-2022 Neutrophils (Bld) [#/Vol] 4.0 10*3/uL 1.8-7.7 [facility] Neutrophils/100 WBC Auto (Bl d)Ordered By: Lashell Villar on 04-23-2022 Neutrophils/100 WBC (Bld) 65.2 % . [facility] No Panel InformationOrdered By: Lashell Villar on 04-23-2022 Pharmacy Creatinine Clearance (Chem N/A [facility] Nucleated erythrocytes [Pres ence] in Blood by Automated countOrdered By: Lashell Villar on 04-23-2022 Nucleated RBC Auto Ql (Bld) 0.1 /100{WBC} 0-0.5 [facility] Platelet mean volume Auto (B ld) [Entitic vol]Ordered By: Lashell Villar on 04-23-2022 Platelet mean volume (Bld) [Entitic vol] 9.3 fL 6.6-10.1 [facility] Platelets Auto (Bld) [#/Vol] Ordered By: Lashell Villar on 04-23-2022 Platelets (Bld) [#/Vol] 152 10*3/uL 150-450 [facility] Potassium [Moles/volume] in Serum or PlasmaOrdered By: Lashell Villar on 04-23-2022 Potassium [Moles/Vol] 3.8 mmol/L 3.5-5.1 [facility] Protein [Mass/volume] in Ser um or PlasmaOrdered By: Lashell Villar on 04-23-2022 Protein [Mass/Vol] 7.2 g/dL 6.4-8.9 [facility] RBC Auto (Bld) [#/Vol]Ordere d By: Lashell Villar on 04-23-2022 RBC (Bld) [#/Vol] 4.51 10*6/uL 3.90-5.60 [facility] Serum or plasma albumin/glob ulin mass ratioOrdered By: Lashell Villar on 04-23-2022 Albumin/Globulin [Mass ratio] 1.5 {ratio} [facility] Serum or plasma anion gap de terminationOrdered By: Lashell Villar on 04-23-2022 Anion gap [Moles/Vol] 12.3 mmol/L 6.0-15.0 [facility] Sodium [Moles/volume] in Ser um or PlasmaOrdered By: Lashell Villar on 04-23-2022 Sodium [Moles/Vol] 138 mmol/L 136-145 [facility] Urea nitrogen [Mass/volume] in Serum or PlasmaOrdered By: Lashell Villar on 04-23-2022 Urea nitrogen [Mass/Vol] 16 mg/dL 7-25 [facility] WBC Auto (Bld) [#/Vol]Ordere d By: Lashell Villar on 04-23-2022 WBC (Bld) [#/Vol] 6.1 10*3/uL 4.1-10.5 [facility] Basophils Auto (Bld) [#/Vol] Ordered By: Clarke Bertrand on 12-10-2021 Basophils (Bld) [#/Vol] 0.0 10*3/uL 0.0-0.2 [facility] Basophils/100 WBC Auto (Bld) Ordered By: Clarke Bertrand on 12-10-2021 Basophils/100 WBC (Bld) 0.4 % . [facility] Body fluid albumin measureme nt (mass/volume)Ordered By: Clarke Bertrand on 12-10-2021 Albumin (Body fld) [Mass/Vol] 3.6 g/dL 3.2-5.5 [facility] Creatinine and Glomerular fi ltration rate.predicted panel (S/P/Bld)Ordered By: Clarke Bertrand on 12-10-2021 Creatinine [Mass/Vol] 0.81 mg/dL 0.64-1.27 [facility] Eosinophils Auto (Bld) [#/Vo l]Ordered By: Clarke Bertrand on 12-10-2021 Eosinophils (Bld) [#/Vol] 0.3 10*3/uL 0.0-0.45 [facility] Eosinophils/100 WBC Auto (Bl d)Ordered By: Clarke Bertrand on 12-10-2021 Eosinophils/100 WBC (Bld) 3.6 % . [facility] Erythrocyte distribution wid th Auto (RBC) [Ratio]Ordered By: Clarke Bertrand on 12-10-2021 Erythrocyte distribution width (RBC) [Ratio] 16.8 % 12.0-14.8 [facility] Erythrocyte sedimentation ra te by Photometric methodOrdered By: Clarke Bertrand on 12-10-2021 ESR Photometric method (Bld) [Velocity] 45 mm/hr 0-19 [facility] Estimated glomerular filtrat ion rate (GFR) non- AmericanOrdered By: Clarke Bertrand on 12-10-2021 GFR/1.73 sq M.predicted among non-blacks MDRD (S/P/Bld) [Vol rate/Area] > 60 mL/Min [facility] Globulin Calc (S) [Mass/Vol] Ordered By: Clarke Bertrand on 12-10-2021 Globulin (S) [Mass/Vol] 3.5 g/dL [facility] Hematocrit Auto (Bld) [Volum e fraction]Ordered By: Clarke Bertrand on 12-10-2021 Hematocrit (Bld) [Volume fraction] 46.0 % 38.8-50.0 [facility] Hemoglobin [Mass/volume] in BloodOrdered By: Clarke Bertrand on 12-10-2021 Hemoglobin (Bld) [Mass/Vol] 14.8 g/dL 13.0-17.0 [facility] Laboratory - Hematology and Cell countsOrdered By: Clarke Bertrand on 12-10-2021 Nucleated RBC/100 WBC (Bld) [Ratio] 0.1 % 0-0.5 [facility] Leukocytes [#/volume] in Blo od by Automated countOrdered By: Clarke Bertrand on 12-10-2021 WBC (Bld) [#/Vol] 7.9 10*3/uL 4.5-11.0 [facility] Lymphocytes Auto (Bld) [#/Vo l]Ordered By: Clarke Bertrand on 12-10-2021 Lymphocytes (Bld) [#/Vol] 1.1 10*3/uL 1.00-4.8 [facility] Lymphocytes/100 WBC Auto (Bl d)Ordered By: Clarke Bertrand on 12-10-2021 Lymphocytes/100 WBC (Bld) 14.4 % . [facility] MCH Auto (RBC) [Entitic mass ]Ordered By: Clarke Bertrand on 12-10-2021 MCH (RBC) [Entitic mass] 30.1 pg 27.5-35.2 [facility] MCHC Auto (RBC) [Mass/Vol]Or dered By: Clarke Bertrand on 12-10-2021 MCHC (RBC) [Mass/Vol] 32.1 g/dL 32.5-35.6 [facility] MCV Auto (RBC) [Entitic vol] Ordered By: Clarke Bertrand on 12-10-2021 MCV (RBC) [Entitic vol] 93.6 fL 83.5-101 [facility] Monocytes Auto (Bld) [#/Vol] Ordered By: Clarke Bertrand on 12-10-2021 Monocytes (Bld) [#/Vol] 0.9 10*3/uL 0.0-0.8 [facility] Monocytes/100 WBC Auto (Bld) Ordered By: Clarke Bertrand on 12-10-2021 Monocytes/100 WBC (Bld) 11.1 % . [facility] Neutrophils Auto (Bld) [#/Vo l]Ordered By: Clarke Bertrand on 12-10-2021 Neutrophils (Bld) [#/Vol] 5.6 10*3/uL 1.8-7.7 [facility] Neutrophils/100 WBC Auto (Bl d)Ordered By: Clarke Bertrand on 12-10-2021 Neutrophils/100 WBC (Bld) 70.5 % . [facility] No Panel InformationOrdered By: Clarke Bertrand on 12-10-2021 Estimated GFR () > 60 mL/Min [facility] Comment on above: GFR estimated refere nce range: According to KDOQI guidelines, <60 ml/min/1.73m2 is sufficient to diagnose a patient with chronic kidney disease. Pharmacy Creatinine Clearance (Chem N/A [facility] Platelet mean volume Auto (B ld) [Entitic vol]Ordered By: Clarke Bertrand on 12-10-2021 Platelet mean volume (Bld) [Entitic vol] 9.4 fL 6.6-10.1 [facility] Platelets Auto (Bld) [#/Vol] Ordered By: Clarke Bertrand on 12-10-2021 Platelets (Bld) [#/Vol] 174 10*3/uL 150-450 [facility] Protein [Mass/volume] in Ser um or PlasmaOrdered By: Clarke Bertrand on 12-10-2021 Protein [Mass/Vol] 7.1 g/dL 6.1-7.9 [facility] RBC Auto (Bld) [#/Vol]Ordere d By: Clarke Bertrand on 12-10-2021 RBC (Bld) [#/Vol] 4.92 10*6/uL 3.90-5.60 [facility] Serum or plasma alanine marie otransferase measurement without P-5'-P (enzymatic activiOrdered By: Clarke Bertrand on 12-10-2021 ALT No additional P-5'-P [Catalytic activity/Vol] 22 U/L 10-60 [facility] Serum or plasma albumin/glob ulin mass ratioOrdered By: Clarke Bertrand on 12-10-2021 Albumin/Globulin [Mass ratio] 1.0 {ratio} [facility] Serum or plasma alkaline samantha sphatase measurement (enzymatic activity/volume)Ordered By: Clarke Bertrand on 12-10-2021 ALP [Catalytic activity/Vol] 71 U/L 32-92 [facility] Serum or plasma anion gap de terminationOrdered By: Clarke Bertrand on 12-10-2021 Anion gap [Moles/Vol] 15.4 mmol/L 6.0-15.0 [facility] Serum or plasma aspartate am inotransferase measurement (enzymatic activity/volume)Ordered By: Clarke Bertrand on 12-10-2021 AST [Catalytic activity/Vol] 23 U/L 10-42 [facility] Serum or plasma calcium timo urement (mass/volume)Ordered By: Clarke Bertrand on 12-10-2021 Calcium [Mass/Vol] 10.0 mg/dL 8.2-10.2 [facility] Serum or plasma chloride alexey surement (moles/volume)Ordered By: Clarke Bertrand on 12-10-2021 Chloride [Moles/Vol] 101 mmol/L 95-114 [facility] Serum or plasma glucose timo urement (mass/volume)Ordered By: Clarke Bertrand on 12-10-2021 Glucose [Mass/Vol] 88 mg/dL 70-100 [facility] Comment on above: ADA recommended refe rence rangeRandom Glucose Reference Range is dependent on time and content of last meal. Glucose of more than 200 mg/dL in a nonstressed, ambulatory subject supports the diagnosis of Diabetes Mellitus. Serum or plasma potassium me asurement (moles/volume)Ordered By: Clarke Bertrand on 12-10-2021 Potassium [Moles/Vol] 4.1 mmol/L 3.5-5.1 [facility] Serum or plasma sodium measu rement (moles/volume)Ordered By: Clarke Bertrand on 12-10-2021 Sodium [Moles/Vol] 136 mmol/L 136-146 [facility] Serum or plasma total biliru bin measurement (mass/volume)Ordered By: Clarke Bertrand on 12-10-2021 Bilirubin [Mass/Vol] 0.9 mg/dL 0.3-1.2 [facility] Serum or plasma total carbon dioxide measurement (moles/volume)Ordered By: Clarke Bertrand on 12-10-2021 CO2 [Moles/Vol] 23.7 mmol/L 22.0-30.0 [facility] Serum or plasma urea nitroge n measurement (mass/volume)Ordered By: Clarke Bertrand on 12-10-2021 Urea nitrogen [Mass/Vol] 15 mg/dL 9-23 [facility] Albumin [Mass/volume] in Ser um or PlasmaOrdered By: Clarke Bertrand on 10-17-2021 Albumin [Mass/Vol] 3.8 g/dL 3.2-5.5 [facility] Basophils Auto (Bld) [#/Vol] Ordered By: Clarke Bertrand on 10-17-2021 Basophils (Bld) [#/Vol] 0.0 10*3/uL 0.0-0.2 [facility] Basophils/100 WBC Auto (Bld) Ordered By: Clarke Bertrand on 10-17-2021 Basophils/100 WBC (Bld) 0.4 % . [facility] Blood hemoglobin measurement (mass/volume)Ordered By: Clarke Bertrand on 10-17-2021 Hemoglobin (Bld) [Mass/Vol] 14.6 g/dL 13.0-17.0 [facility] Blood leukocytes automated c ount (number/volume)Ordered By: Clarke Bertrand on 10-17-2021 WBC (Bld) [#/Vol] 4.8 10*3/uL 4.5-11.0 [facility] Creatinine and Glomerular fi ltration rate.predicted panel (S/P/Bld)Ordered By: Clarke Bertrand on 10-17-2021 Creatinine [Mass/Vol] 0.86 mg/dL 0.64-1.27 [facility] Eosinophils Auto (Bld) [#/Vo l]Ordered By: Clarke Bertrand on 10-17-2021 Eosinophils (Bld) [#/Vol] 0.2 10*3/uL 0.0-0.45 [facility] Eosinophils/100 WBC Auto (Bl d)Ordered By: Clarke Bertrand on 10-17-2021 Eosinophils/100 WBC (Bld) 4.4 % . [facility] Erythrocyte distribution wid th Auto (RBC) [Ratio]Ordered By: Clarke Bertrand on 10-17-2021 Erythrocyte distribution width (RBC) [Ratio] 16.6 % 12.0-14.8 [facility] Erythrocyte sedimentation ra te by Photometric methodOrdered By: Clarke Bertrand on 10-17-2021 ESR Photometric method (Bld) [Velocity] 37 mm/hr 0-19 [facility] Estimated glomerular filtrat ion rate (GFR) non- AmericanOrdered By: lCarke Bertrand on 10-17-2021 GFR/1.73 sq M.predicted among non-blacks MDRD (S/P/Bld) [Vol rate/Area] > 60 mL/Min [facility] Globulin Calc (S) [Mass/Vol] Ordered By: Clarke Bertrand on 10-17-2021 Globulin (S) [Mass/Vol] 3.1 g/dL [facility] Hematocrit Auto (Bld) [Volum e fraction]Ordered By: Clarke Bertrand on 10-17-2021 Hematocrit (Bld) [Volume fraction] 44.2 % 38.8-50.0 [facility] Laboratory - Hematology and Cell countsOrdered By: Clarke Bertrand on 10-17-2021 Nucleated RBC/100 WBC (Bld) [Ratio] 0.2 % 0-0.5 [facility] Lymphocytes Auto (Bld) [#/Vo l]Ordered By: Clarke Bertrand on 10-17-2021 Lymphocytes (Bld) [#/Vol] 1.2 10*3/uL 1.00-4.8 [facility] Lymphocytes/100 WBC Auto (Bl d)Ordered By: Clarke Bertrand on 10-17-2021 Lymphocytes/100 WBC (Bld) 25.9 % . [facility] MCH Auto (RBC) [Entitic mass ]Ordered By: Clarke Bertrand on 10-17-2021 MCH (RBC) [Entitic mass] 30.8 pg 27.5-35.2 [facility] MCHC Auto (RBC) [Mass/Vol]Or dered By: Clarke Bertrand on 10-17-2021 MCHC (RBC) [Mass/Vol] 33.1 g/dL 32.5-35.6 [facility] MCV Auto (RBC) [Entitic vol] Ordered By: Clarke Bertrand on 10-17-2021 MCV (RBC) [Entitic vol] 93.2 fL 83.5-101 [facility] Monocytes Auto (Bld) [#/Vol] Ordered By: Clarke Bertrand on 10-17-2021 Monocytes (Bld) [#/Vol] 0.6 10*3/uL 0.0-0.8 [facility] Monocytes/100 WBC Auto (Bld) Ordered By: Clarke Bertrand on 10-17-2021 Monocytes/100 WBC (Bld) 12.9 % . [facility] Neutrophils Auto (Bld) [#/Vo l]Ordered By: Clarke Bertrand on 10-17-2021 Neutrophils (Bld) [#/Vol] 2.7 10*3/uL 1.8-7.7 [facility] Neutrophils/100 WBC Auto (Bl d)Ordered By: Clarke Bertrand on 10-17-2021 Neutrophils/100 WBC (Bld) 56.4 % . [facility] No Panel InformationOrdered By: Clarke Bertrand on 10-17-2021 Estimated GFR () > 60 mL/Min [facility] Comment on above: GFR estimated refere nce range: According to KDOQI guidelines, <60 ml/min/1.73m2 is sufficient to diagnose a patient with chronic kidney disease. Pharmacy Creatinine Clearance (Chem N/A [facility] Platelet mean volume Auto (B ld) [Entitic vol]Ordered By: Clarke Bertrand on 10-17-2021 Platelet mean volume (Bld) [Entitic vol] 8.9 fL 6.6-10.1 [facility] Platelets Auto (Bld) [#/Vol] Ordered By: Clarke Bertrand on 10-17-2021 Platelets (Bld) [#/Vol] 176 10*3/uL 150-450 [facility] Protein [Mass/volume] in Ser um or PlasmaOrdered By: Clarke Bertrand on 10-17-2021 Protein [Mass/Vol] 6.9 g/dL 6.1-7.9 [facility] RBC Auto (Bld) [#/Vol]Ordere d By: Clarke Bertrand on 10-17-2021 RBC (Bld) [#/Vol] 4.74 10*6/uL 3.90-5.60 [facility] Serum or plasma alanine marie otransferase measurement without P-5'-P (enzymatic activiOrdered By: Clarke Bertrand on 10-17-2021 ALT No additional P-5'-P [Catalytic activity/Vol] 22 U/L 10-60 [facility] Serum or plasma albumin/glob ulin mass ratioOrdered By: Clarke Bertrand on 10-17-2021 Albumin/Globulin [Mass ratio] 1.2 {ratio} [facility] Serum or plasma alkaline samantha sphatase measurement (enzymatic activity/volume)Ordered By: Clarke Bertrand on 10-17-2021 ALP [Catalytic activity/Vol] 72 U/L 32-92 [facility] Serum or plasma anion gap de terminationOrdered By: Clarke Bertrand on 10-17-2021 Anion gap [Moles/Vol] 13.2 mmol/L 6.0-15.0 [facility] Serum or plasma aspartate am inotransferase measurement (enzymatic activity/volume)Ordered By: Clarke Bertrand on 10-17-2021 AST [Catalytic activity/Vol] 31 U/L 10-42 [facility] Serum or plasma calcium timo urement (mass/volume)Ordered By: Clarke Bertrand on 10-17-2021 Calcium [Mass/Vol] 9.6 mg/dL 8.2-10.2 [facility] Serum or plasma chloride alexey surement (moles/volume)Ordered By: Clarke Bertrand on 10-17-2021 Chloride [Moles/Vol] 101 mmol/L 95-114 [facility] Serum or plasma glucose timo urement (mass/volume)Ordered By: Clarke Bertrand on 10-17-2021 Glucose [Mass/Vol] 86 mg/dL 70-100 [facility] Comment on above: ADA recommended refe [...] on 10-17-2021 Potassium [Moles/Vol] 4.4 mmol/L 3.5-5.1 [facility] Serum or plasma sodium measu rement (moles/volume)Ordered By: Clarke Bertrand on 10-17-2021 Sodium [Moles/Vol] 136 mmol/L 136-146 [facility] Serum or plasma total biliru bin measurement (mass/volume)Ordered By: Clarke Amadorow on 10-17-2021 Bilirubin [Mass/Vol] 0.3 mg/dL 0.3-1.2 [facility] Serum or plasma total carbon dioxide measurement (moles/volume)Ordered By: Clarke Elza on 10-17-2021 CO2 [Moles/Vol] 26.2 mmol/L 22.0-30.0 [facility] Serum or plasma urea nitroge n measurement (mass/volume)Ordered By: Clarke Elza on 10-17-2021 Urea nitrogen [Mass/Vol] 15 mg/dL 9-23 [facility] COVID-19 Positive/NegativeOr dered By: Vickey Moeller on 09-13-2021 SARS-CoV-2 (COVID-19) N gene ELENA+probe Ql (Resp) Negative Negative [facility] Comment on above: Testing for SARS-CoV -2 by RT-PCR This test was developed and its performance characteristics determined by [employer] ([employer]) and validated at the [facility]. This test has not been FDA cleared [...] developed and its performance characteristics determined by [employer] ([employer]) and validated at the [facility] [place]. This test has not been FDA cleared [...] 08-22-2021 Basophils (Bld) [#/Vol] 0.0 10*3/uL 0.0-0.2 [facility] [place] Basophils/100 WBC Auto (Bld) Ordered By: Clarke Bertrand on 08-22-2021 Basophils/100 WBC (Bld) 0.7 % . [facility] Blood hemoglobin measurement (mass/volume)Ordered By: Clarke Bertrand on 08-22-2021 Hemoglobin (Bld) [Mass/Vol] 14.4 g/dL 13.0-17.0 [facility] [place] Blood leukocytes automated c ount (number/volume)Ordered By: Clarke Bertrand on 08-22-2021 WBC (Bld) [#/Vol] 3.2 10*3/uL 4.5-11.0 [facility] Body fluid albumin measureme nt (mass/volume)Ordered By: Clarke Bertrand on 08-22-2021 Albumin (Body fld) [Mass/Vol] 3.7 g/dL 3.2-5.5 [facility] Creatinine and Glomerular fi ltration rate.predicted panel (S/P/Bld)Ordered By: Clarke Bertrand on 08-22-2021 Creatinine [Mass/Vol] 0.78 mg/dL 0.64-1.27 [facility] Eosinophils Auto (Bld) [#/Vo l]Ordered By: Clarke Bertrand on 08-22-2021 Eosinophils (Bld) [#/Vol] 0.1 10*3/uL 0.0-0.45 [facility] Eosinophils/100 WBC Auto (Bl d)Ordered By: Clarke Bertrand on 08-22-2021 Eosinophils/100 WBC (Bld) 4.5 % . [facility] Erythrocyte distribution wid th Auto (RBC) [Ratio]Ordered By: Clarke Bertrand on 08-22-2021 Erythrocyte distribution width (RBC) [Ratio] 16.1 % 12.0-14.8 [facility] Erythrocyte sedimentation ra te by Photometric methodOrdered By: Clarke Bertrand on 08-22-2021 ESR Photometric method (d) [Velocity] 37 mm/hr 0-19 [facility] Estimated glomerular filtrat ion rate (GFR) non- AmericanOrdered By: Clarke Bertrand on 08-22-2021 GFR/1.73 sq M.predicted among non-blacks MDRD (S/P/Bld) [Vol rate/Area] > 60 mL/Min [facility] Globulin Calc (S) [Mass/Vol] Ordered By: Clarke Bertrand on 08-22-2021 Globulin (S) [Mass/Vol] 3.3 g/dL [facility] Hematocrit Auto (Bld) [Volum e fraction]Ordered By: Clarke Bertrand on 08-22-2021 Hematocrit (Bld) [Volume fraction] 43.5 % 38.8-50.0 [facility] [place] Laboratory - Hematology and Cell countsOrdered By: Clarke Bertrand on 08-22-2021 Nucleated RBC/100 WBC (Bld) [Ratio] 0.1 % 0-0.5 [facility] Lymphocytes Auto (Bld) [#/Vo l]Ordered By: Clarke Bertrand on 08-22-2021 Lymphocytes (Bld) [#/Vol] 1.1 10*3/uL 1.00-4.8 [facility] Lymphocytes/100 WBC Auto (Bl d)Ordered By: Clarke Bertrand on 08-22-2021 Lymphocytes/100 WBC (Bld) 33.4 % . [facility] MCH Auto (RBC) [Entitic mass ]Ordered By: Clarke Bertrand on 08-22-2021 MCH (RBC) [Entitic mass] 30.8 pg 27.5-35.2 [facility] MCHC Auto (RBC) [Mass/Vol]Or dered By: Clarke Bertrand on 08-22-2021 MCHC (RBC) [Mass/Vol] 33.1 g/dL 32.5-35.6 [facility] MCV Auto (RBC) [Entitic vol] Ordered By: Clarke Bertrand on 08-22-2021 MCV (RBC) [Entitic vol] 92.9 fL 83.5-101 [facility] Monocytes Auto (Bld) [#/Vol] Ordered By: Clarke Bertrand on 08-22-2021 Monocytes (Bld) [#/Vol] 0.4 10*3/uL 0.0-0.8 [facility] Monocytes/100 WBC Auto (Bld) Ordered By: Clarke Bertrand on 08-22-2021 Monocytes/100 WBC (Bld) 13.8 % . [facility] Neutrophils Auto (Bld) [#/Vo l]Ordered By: Clarke Bertrand on 08-22-2021 Neutrophils (Bld) [#/Vol] 1.5 10*3/uL 1.8-7.7 [facility] Neutrophils/100 WBC Auto (Bl d)Ordered By: Clarke Bertrand on 08-22-2021 Neutrophils/100 WBC (Bld) 47.6 % . [facility] No Panel InformationOrdered By: Clarke Bertrand on 08-22-2021 Estimated GFR () > 60 mL/Min [facility] Comment on above: GFR estimated refere nce range: According to KDOQI guidelines, <60 ml/min/1.73m2 is sufficient to diagnose a patient with chronic kidney disease. Pharmacy Creatinine Clearance (Chem N/A [facility] Platelet mean volume Auto (B ld) [Entitic vol]Ordered By: Clarke Bertrand on 08-22-2021 Platelet mean volume (Bld) [Entitic vol] 9.2 fL 6.6-10.1 [facility] Platelets Auto (Bld) [#/Vol] Ordered By: Clarke Bertrand on 08-22-2021 Platelets (Bld) [#/Vol] 147 10*3/uL 150-450 [facility] Protein [Mass/volume] in Ser um or PlasmaOrdered By: Clarke Bertrand on 08-22-2021 Protein [Mass/Vol] 7.0 g/dL 6.1-7.9 [facility] RBC Auto (Bld) [#/Vol]Ordere d By: Clarke Bertrand on 08-22-2021 RBC (Bld) [#/Vol] 4.68 10*6/uL 3.90-5.60 [facility] Serum or plasma alanine marie otransferase measurement without P-5'-P (enzymatic activiOrdered By: Clarke Bertrand on 08-22-2021 ALT No additional P-5'-P [Catalytic activity/Vol] 27 U/L 10-60 [facility] Serum or plasma albumin/glob ulin mass ratioOrdered By: Clarke Bertrand on 08-22-2021 Albumin/Globulin [Mass ratio] 1.1 {ratio} [facility] Serum or plasma alkaline samantha sphatase measurement (enzymatic activity/volume)Ordered By: Clarke Bertrand on 08-22-2021 ALP [Catalytic activity/Vol] 68 U/L 32-92 [facility] Serum or plasma aspartate am inotransferase measurement (enzymatic activity/volume)Ordered By: Clarke Bertrand on 08-22-2021 AST [Catalytic activity/Vol] 32 U/L 10-42 [facility] Serum or plasma calcium timo urement (mass/volume)Ordered By: Clarke Bertrand on 08-22-2021 Calcium [Mass/Vol] 10.0 mg/dL 8.2-10.2 [facility] Serum or plasma chloride alexey surement (moles/volume)Ordered By: Clarke Bertrand on 08-22-2021 Chloride [Moles/Vol] 102 mmol/L 95-114 [facility] Serum or plasma glucose timo urement (mass/volume)Ordered By: Clarke Bertrand on 08-22-2021 Glucose [Mass/Vol] 91 mg/dL 70-100 [facility] Comment on above: ADA recommended refe rence range Random Glucose Reference Range is dependent on time and content of last meal. Glucose of more than 200 mg/dL in a nonstressed, ambulatory subject supports the diagnosis of Diabetes Mellitus. Serum or plasma potassium me asurement (moles/volume)Ordered By: Clarke Bertrand on 08-22-2021 Potassium [Moles/Vol] 4.0 mmol/L 3.5-5.1 [facility] Serum or plasma sodium measu rement (moles/volume)Ordered By: Clarke Bertrand on 08-22-2021 Sodium [Moles/Vol] 137 mmol/L 136-146 [facility] Serum or plasma total biliru bin measurement (mass/volume)Ordered By: Clarke Bertrand on 08-22-2021 Bilirubin [Mass/Vol] 0.6 mg/dL 0.3-1.2 [facility] Serum or plasma total carbon dioxide measurement (moles/volume)Ordered By: Clarke Bertrand on 08-22-2021 CO2 [Moles/Vol] 23.0 mmol/L 22.0-30.0 [facility] Serum or plasma urea nitroge n measurement (mass/volume)Ordered By: Clarke Bertrand on 08-22-2021 Urea nitrogen [Mass/Vol] 12 mg/dL 9-23 [facility] CNPNon 07-22-2021 CNPN Telephone (FVPRAD) -- SHIRLEY NIETO ([id number]) 1940 M Date Time Provider Department 07/22/21 [...] Encounter Status:Closed by CYN[facility] (FVPRAD) -- SHIRLEY NIETO ([id number]) 1940 M Date Time Provider Department 04/08/21 CYNTHIA OLIVER FVKIMBERLEE During your visit today, we recorded the [...] Encounter Status:Closed by CYNTHIA OLIVER on 04/16/21 Normal [facility] CBC AUTO DIFFon 11-06-2020 BASO # 0.0 103/ul Normal 0.0-0.1 [facility] Comment on above: Performed By: #### C BC #### [facility] [address] [place] [address] Dr. Maricarmen Barrett Basophils/100 WBC (Bld) 0.3 % Normal 0.2-2.0 [facility] Comment on above: Performed By: #### C BC #### [facility] [address] [address] [address] Maricarmen Barrett EO # 0.2 103/ul Normal 0.0-0.7 [facility] Comment on above: Performed By: #### C BC #### [facility] [address] [address] [address] Maricarmen Barrett Eosinophils/100 WBC (Bld) 4.3 % Normal 0.9-7.0 [facility] Comment on above: Performed By: #### C BC #### [facility] [address] [address] [address] Maricarmen Barrett Erythrocyte distribution width (RBC) [Ratio] 14.9 % Normal 11.0-15.0 [facility] Comment on above: Performed By: #### C BC #### [facility] [address] [place] [address] Dr. Maricarmen Barrett Hematocrit (Bld) [Volume fraction] 44.1 % Normal 42.0-54.0 [facility] Comment on above: Performed By: #### C BC #### [facility] [address] [place] [address] Dr. Maricarmen Barrett Hemoglobin (Bld) [Mass/Vol] 14.8 g/dL Normal 14.0-18.0 [facility] Comment on above: Performed By: #### C BC #### [facility] [address] [place] [address] Dr. Maricarmen Barrett IG # 0.00 10e3/ul Normal 0.00-0.03 [facility] Comment on above: Performed By: #### C BC #### [facility] [address] [place] [address] Dr. Maricarmen Barrett IG % 0.0 % Normal 0.0-0.5 [facility] Comment on above: Performed By: #### C BC #### [facility] [address] [place] [address] Dr. Maricarmen Barrett LYMPH # 1.5 103/ul Normal 1.2-3.8 [facility] Comment on above: Performed By: #### C BC #### [facility] [address] [place] [address] Dr. Maricarmen Barrett Lymphocytes/100 WBC (Bld) 37.2 % Normal 20.5-60.0 [facility] Comment on above: Performed By: #### C BC #### [facility] [address] [place] [address] Dr. Maricarmen Barrett MANUAL DIFF REQ NO Normal [facility] Comment on above: Performed By: #### C BC #### [facility] [address] [place] [address] Dr. Maricarmen Barrett MCH (RBC) [Entitic mass] 30.9 pg Normal 25.9-34.0 [facility] Comment on above: Performed By: #### C BC #### [facility] [address] [place] [address] Dr. Maricarmen Barrett MCHC (RBC) [Mass/Vol] 33.6 g/dL Normal 29.9-35.2 [facility] Comment on above: Performed By: #### C BC #### [facility] [address] [place] [address] Dr. Maricarmen Barrett MCV (RBC) [Entitic vol] 92.1 fL Normal 80.0-94.0 [facility] Comment on above: Performed By: #### C BC #### [facility] [address] [place] [address] Dr. Maricarmen Barrett MONO # 0.5 103/ul Normal 0.3-0.8 [facility] Comment on above: Performed By: #### C BC #### [facility] [address] [address] [address] Maricarmen Barrett Monocytes/100 WBC (Bld) 13.5 % Critically high 1.7-12.0 [facility] Comment on above: Performed By: #### C BC #### [facility] [address] [place] [address] Dr. Maricarmen Brarett NEUT # 1.8 103/ul Normal 1.4-6.5 [facility] Comment on above: Performed By: #### C BC #### [facility] [address] [place] [address] Dr. Maricarmen Barrett Neutrophils/100 WBC (Bld) 44.7 % Normal 43.0-75.0 [facility] Comment on above: Performed By: #### C BC #### [facility] [address] [place] [address] Dr. Maricarmen Barrett Platelet mean volume (Bld) [Entitic vol] 10.7 fL Normal 9.5-13.5 [facility] Comment on above: Performed By: #### C BC #### [facility] [address] [place] [address] Dr. Maricarmen Barrett PLT 141 103/ul Critically low 150-450 [facility] Comment on above: Performed By: #### C BC #### [facility] [address] [place] [address] Dr. Maricarmen Barrett RBC 4.79 106/ul Normal 4.70-6.10 [facility] Comment on above: Performed By: #### C BC #### [facility] [address] [place] [address] Dr. Maricarmen Barrett WBC 3.9 103/ul Critically low 4.0-11.0 [facility] Comment on above: Performed By: #### C BC #### [facility] [address] [address] [address] Maricarmen Barrett LIPID PROFILEon 11-06-2020 CHOL-HDL RATIO NORM SEE BELOW Normal [facility] Comment on above: Result Comment: 3.3 - 4.4 LOW RISK 4.4 - 7.1 AVERAGE RISK 7.1 - 11.0 MODERATE RISK >11.0 HIGH RISK Performed By: #### B MP, LIPID #### [facility] [address] [address] [address] Maricarmen Barrett Cholesterol [Mass/Vol] 207 mg/dL Critically high <=200 [facility] Comment on above: Performed By: #### B MP, LIPID #### [facility] [address] [place] [address] Dr. Maricarmen Barrett Cholesterol in HDL [Mass/Vol] 61 mg/dL Normal [facility] Comment on above: Performed By: #### B MP, LIPID #### [facility] [address] [address] [address] Maricarmen Barrett Cholesterol in LDL [Mass/Vol] 132.2 mg/dL Normal [facility] Comment on above: Performed By: #### B MP, LIPID #### [facility] [address] [place] [address] Dr. Maricarmen Barrett Cholesterol.total/Chol esterol in HDL [Mass ratio] 3.4 {ratio} Normal [facility] Comment on above: Performed By: #### B MP, LIPID #### [facility] [address] [address] [address] Maricarmen Barrett HDL NORMAL > or = 60 mg/dl - LO W CARDIOVASCULAR RISK <40 mg/dl - HIGH CARDIOVASCULAR RISK Normal [facility] Comment on above: Performed By: #### B MP, LIPID #### [facility] [address] [address] [address] Maricarmen Barrett LDL CALC NORMAL SEE BELOW Normal [facility] Comment on above: Result Comment: <100 mg/dl OPTIMAL 100 - 129 mg/dl NEAR OR ABOVE OPTIMAL 130 - 159 mg/dl BORDERLINE HIGH 160 - 189 mg/dl HIGH >190 mg/dl VERY HIGH Performed By: #### B MP, LIPID #### [facility] [address] [place] [address] Dr. Maricarmen Barrett Triglyceride [Mass/Vol] 69 mg/dL Normal <=150 [facility] Comment on above: Performed By: #### B MP, LIPID #### [facility] [address] [place] [address] Dr. Maricarmen Barrett VLDL CALC 13.8 mg/dL Normal [facility] Comment on above: Performed By: #### B MP, LIPID #### [facility] [address] [place] [address] Dr. Maricarmen Barrett PROF CHEM 8 (BAS METB)on Anion gap [Moles/Vol] 10.5 mmol/L Normal [facility] Comment on above: Performed By: #### B MP, LIPID #### [facility] [address] [place] [address] Dr. Maricarmen Barrett Calcium [Mass/Vol] 9.7 mg/dL Normal 8.4-10.2 [facility] Comment on above: Performed By: #### B MP, LIPID #### [facility] [address] [place] [address] Dr. Maricarmen Barrett Chloride [Moles/Vol] 103 mmol/L Normal 98-107 [facility] Comment on above: Performed By: #### B MP, LIPID #### [facility] [address] [place] [address] Dr. Maricarmen Barrett CO2 [Moles/Vol] 27.3 mmol/L Normal 22.0-30.0 [facility] Comment on above: Performed By: #### B MP, LIPID #### [facility] [address] [place] [address] Dr. Maricarmen Barrett Creatinine [Mass/Vol] 0.80 mg/dL Normal 0.66-1.25 [facility] Comment on above: Performed By: #### B MP, LIPID #### [facility] [address] [place] [address] Dr. Maricarmen Barrett EGFR-AF OMANI >60 Normal >=60 [facility] Comment on above: Performed By: #### B MP, LIPID #### [facility] [address] [place] [address] Dr. Maricarmen Barrett EGFR-NON AF OMANI >60 Normal >=60 [facility] Comment on above: Performed By: #### B MP, LIPID #### [facility] [address] [place] [address] Dr. Maricarmen Barrett Glucose [Mass/Vol] 97 mg/dL Normal 74-106 [facility] Comment on above: Performed By: #### B MP, LIPID #### [facility] [address] [place] [address] Dr. Maricarmen Barrett Potassium [Moles/Vol] 3.8 mmol/L Normal 3.4-5.0 [facility] Comment on above: Performed By: #### B MP, LIPID #### [facility] [address] [place] [address] Dr. Maricarmen Barrett Sodium [Moles/Vol] 137 mmol/L Normal 137-145 [facility] Comment on above: Performed By: #### B MP, LIPID #### [facility] [address] [place] [address] Dr. Maricarmen Barrett Urea nitrogen [Mass/Vol] 15.0 mg/dL Normal 9.0-20.0 [facility] Comment on above: Performed By: #### B MP, LIPID #### [facility] [address] [place] [address] Dr. Maricarmen Barrett Urea nitrogen/Creatinine [Mass ratio] 18.8 mg/mg Normal [facility] Comment on above: Performed By: #### B MP, LIPID #### [facility] [address] [place] [address] Dr. Maricarmen Barrett Audiology Office/Clinic Note on [...] by Omaira Leblanc 05/22/20 08:53 EDT Normal [facility] Vital Signs Date Time Vital Sign Value Performing Clinician Facility 10-12-2024 08:46-0400 Body height 187.96 cm [employer] Work Phone: [facility] 10-12-2024 08:46-0400 Body mass index (BMI) [Ratio] 24.6 kg/m2 [employer] DO Work Phone: [facility] 10-12-2024 08:46-0400 Body temperature 98.1 [degF] Duarte Giferent Work Phone: [facility] 10-12-2024 08:46-0400 Body weight 87.08 kg [employer] DO Work Phone: [facility] 10-12-2024 08:46-0400 Diastolic blood pressure 90 mm[Hg] Duarte [employer]er [employer] DO Work Phone: [facility] 10-12-2024 08:46-0400 Heart rate 114 /min Duarte Giferent Work Phone: [facility] 10-12-2024 08:46-0400 Respiratory rate 16 /min Duarte Giferent Work Phone: [facility] 10-12-2024 08:46-0400 SaO2% (BldA) [Mass fraction] 97 % [employer] Giferent Work Phone: [facility] 10-12-2024 08:46-0400 Systolic blood pressure 131 mm[Hg] Duarte Ball DO Work Phone: [facility] 09-26-2024 14:14-0400 Body height 188 cm Duarte Murcek DO Work Phone: [facility] 09-26-2024 14:14-0400 Body mass index (BMI) [Ratio] 23.75 kg/m2 Duarte Murcek DO Work Phone: [facility] 09-26-2024 14:14-0400 Body weight 83.92 kg Duarte Murcek DO Work Phone: [facility] 09-16-2024 10:26-0400 Diastolic blood pressure 82 mm[Hg] Duarte Ball DO Work Phone: [facility] 09-16-2024 10:26-0400 Heart rate 81 /min Duarte Ball DO Work Phone: [facility] 09-16-2024 10:26-0400 Respiratory rate 16 /min Duarte Ball DO Work Phone: [facility] 09-16-2024 10:26-0400 SaO2% (BldA) [Mass fraction] 94 % Duarte Ball DO Work Phone: [facility] 09-16-2024 10:26-0400 Systolic blood pressure 128 mm[Hg] Duarte Ball DO Work Phone: [facility] 09-16-2024 09:05-0400 Body temperature 97.2 [degF] Duarte Ball DO Work Phone: [facility] 09-16-2024 08:34-0400 Inhaled oxygen flow rate 8 L/min Duarte Ball DO Work Phone: [facility] 09-16-2024 06:26-0400 Body height 187.96 cm Duarte Ball DO Work Phone: [facility] 09-16-2024 06:26-0400 Body weight 89.9 kg Duarte Ball DO Work Phone: [facility] 09-12-2024 14:16-0400 Body height 188 cm Duarte Murcek DO Work Phone: [facility] 09-12-2024 14:16-0400 Body mass index (BMI) [Ratio] 23.75 kg/m2 Duarte Murcek DO Work Phone: [facility] 09-12-2024 14:16-0400 Body weight 83.92 kg Duarte Murcek DO Work Phone: [facility] 09-05-2024 11:35-0400 Diastolic blood pressure 94 mm[Hg] Duarte Ball DO Work Phone: [facility] 09-05-2024 11:35-0400 Heart rate 76 /min Duarte Ball DO Work Phone: [facility] 09-05-2024 11:35-0400 Respiratory rate 14 /min Duarte Ball DO Work Phone: [facility] 09-05-2024 11:35-0400 SaO2% (BldA) [Mass fraction] 99 % Duarte Ball DO Work Phone: [facility] 09-05-2024 11:35-0400 Systolic blood pressure 149 mm[Hg] Duarte Ball DO Work Phone: [facility] 09-05-2024 10:14-0400 Body height 187.96 cm Duarte Ball DO Work Phone: [facility] 09-05-2024 10:14-0400 Body weight 83.91 kg Duarte Ball DO Work Phone: [facility] 08-15-2024 13:31-0400 Body height 193.04 cm Duarte Ball DO Work Phone: [facility] 08-15-2024 13:31-0400 Body mass index (BMI) [Ratio] 22.7 kg/m2 Duarte Ball DO Work Phone: [facility] 08-15-2024 13:31-0400 Body weight 84.82 kg Duarte Ball DO Work Phone: [facility] 08-15-2024 13:31-0400 Diastolic blood pressure 76 mm[Hg] Duarte Ball DO Work Phone: [facility] 08-15-2024 13:31-0400 Heart rate 93 /min Duarte Ball DO Work Phone: [facility] 08-15-2024 13:31-0400 Respiratory rate 12 /min Duarte Ball DO Work Phone: [facility] 08-15-2024 13:31-0400 Systolic blood pressure 149 mm[Hg] Duarte Ball DO Work Phone: [facility] 07-13-2024 13:59-0400 Body height 193.04 cm Duarte Ball DO Work Phone: [facility] 07-13-2024 13:59-0400 Body mass index (BMI) [Ratio] 23.1 kg/m2 Duarte Ball DO Work Phone: [facility] 07-13-2024 13:59-0400 Body weight 86.18 kg Duarte Ball DO Work Phone: [facility] 07-13-2024 13:59-0400 Diastolic blood pressure 75 mm[Hg] Duarte Ball DO Work Phone: [facility] 07-13-2024 13:59-0400 Heart rate 98 /min Duarte Ball DO Work Phone: [facility] 07-13-2024 13:59-0400 Respiratory rate 12 /min Duarte Ball DO Work Phone: [facility] 07-13-2024 13:59-0400 SaO2% (BldA) [Mass fraction] 97 % Duarte Ball DO Work Phone: [facility] 07-13-2024 13:59-0400 Systolic blood pressure 131 mm[Hg] Duarte Ball DO Work Phone: [facility] 06-06-2024 14:40-0400 Diastolic blood pressure 76 mm[Hg] Duarte Ball DO Work Phone: [facility] 06-06-2024 14:40-0400 Heart rate 85 /min Duarte Ball DO Work Phone: [facility] 06-06-2024 14:40-0400 Respiratory rate 16 /min Duarte Ball DO Work Phone: [facility] 06-06-2024 14:40-0400 SaO2% (BldA) [Mass fraction] 95 % Duarte Ball DO Work Phone: [facility] [place] 06-06-2024 14:40-0400 Systolic blood pressure 117 mm[Hg] Duarte Ball DO Work Phone: [facility] [place] 06-06-2024 12:48-0400 Body height 193.04 cm Duarte Ball DO Work Phone: [facility] 06-06-2024 12:48-0400 Body weight 83.91 kg Duarte Ball DO Work Phone: [facility] [place] 05-23-2024 08:38-0400 Body height 187.96 cm Duarte Ball DO Work Phone: [facility] [place] 05-23-2024 08:38-0400 Body mass index (BMI) [Ratio] 24.4 kg/m2 Duarte Ball DO Work Phone: [facility] [place] 05-23-2024 08:38-0400 Body weight 86.35 kg Duarte Ball DO Work Phone: [facility] 05-23-2024 08:38-0400 Diastolic blood pressure 85 mm[Hg] Duarte Ball DO Work Phone: [facility] 05-23-2024 08:38-0400 Heart rate 114 /min Duarte Ball DO Work Phone: [facility] 05-23-2024 08:38-0400 Respiratory rate 12 /min Duarte Ball DO Work Phone: [facility] 05-23-2024 08:38-0400 Systolic blood pressure 143 mm[Hg] Duarte Ball DO Work Phone: [facility] 04-20-2024 12:04-0400 Body height 187.96 cm Duarte Ball DO Work Phone: [facility] 04-20-2024 12:04-0400 Body mass index (BMI) [Ratio] 25.2 kg/m2 Duarte Ball DO Work Phone: [facility] 04-20-2024 12:04-0400 Body temperature 97.3 [degF] Duarte Ball DO Work Phone: [facility] 04-20-2024 12:04-0400 Body weight 88.96 kg Duarte Ball DO Work Phone: [facility] 04-20-2024 12:04-0400 Diastolic blood pressure 88 mm[Hg] Duarte Ball DO Work Phone: [facility] 04-20-2024 12:04-0400 Heart rate 108 /min Duarte Ball DO Work Phone: [facility] 04-20-2024 12:04-0400 Respiratory rate 20 /min Duarte Ball DO Work Phone: [facility] 04-20-2024 12:04-0400 Systolic blood pressure 140 mm[Hg] Duarte Ball DO Work Phone: [facility] [place] 11-18-2023 13:20-0400 Body height 187.96 cm MD Clarke Bertrand Work Phone: [facility] [place] 11-18-2023 13:20-0400 Body mass index (BMI) [Ratio] 25.7 kg/m2 MD Clarke Bertrand Work Phone: [facility] [place] 11-18-2023 13:20-0400 Body weight 90.71 kg MD Clarke Bertrand Work Phone: [facility] 11-18-2023 13:20-0400 Diastolic blood pressure 77 mm[Hg] MD Clarke Bertrand Work Phone: [facility] [place] 11-18-2023 13:20-0400 Heart rate 87 /min MD Clarke Bertrand Work Phone: [facility] 11-18-2023 13:20-0400 Systolic blood pressure 130 mm[Hg] MD Clarke Bertrand Work Phone: [facility] 11-12-2023 08:37-0400 Body height 187.96 cm MD Clarke Bertrand Work Phone: [facility] 11-12-2023 08:37-0400 Body mass index (BMI) [Ratio] 25.4 kg/m2 MD Clarke Bertrand Work Phone: [facility] 11-12-2023 08:37-0400 Body weight 90.03 kg MD Clarke Bertrand Work Phone: [facility] 11-12-2023 08:37-0400 Diastolic blood pressure 68 mm[Hg] MD Clarke Bertrand Work Phone: [facility] 11-12-2023 08:37-0400 Heart rate 54 /min MD Clarke Bertrand Work Phone: [facility] 11-12-2023 08:37-0400 Respiratory rate 12 /min MD Clarke Bertrand Work Phone: [facility] 11-12-2023 08:37-0400 Systolic blood pressure 116 mm[Hg] MD Clarke Bertrand Work Phone: [facility] 05-12-2023 08:35-0400 Body height 187.96 cm DO Duarte Ball Work Phone: [facility] 05-12-2023 08:35-0400 Body mass index (BMI) [Ratio] 26.1 kg/m2 DO Duarte Ball Work Phone: [facility] [place] 05-12-2023 08:35-0400 Body weight 92.22 kg DO Duarte Ball Work Phone: [facility] 05-12-2023 08:35-0400 Diastolic blood pressure 80 mm[Hg] DO Duarte Ball Work Phone: [facility] [place] 05-12-2023 08:35-0400 Heart rate 88 /min DO Duarte Ball Work Phone: [facility] 05-12-2023 08:35-0400 Respiratory rate 12 /min DO Duarte Ball Work Phone: [facility] 05-12-2023 08:35-0400 Systolic blood pressure 133 mm[Hg] DO Duarte Ball Work Phone: [facility] 11-24-2022 08:38-0400 Body height 190.5 cm Cynthia Oliver MD Work Phone: [facility] 11-24-2022 08:38-0400 Body weight 89.36 kg Cynthia Oliver MD Work Phone: [facility] 11-24-2022 08:38-0400 Diastolic blood pressure 86 mm[Hg] Cynthia Oliver MD Work Phone: [facility] 11-24-2022 08:38-0400 Heart rate 86 /min Cynthia Oliver MD Work Phone: [facility] 11-24-2022 08:38-0400 Systolic blood pressure 120 mm[Hg] Cynthia Oliver MD Work Phone: [facility] 11-19-2022 15:00-0400 Body height 187.96 cm Vickey Moeller Other [employer] Other 11-19-2022 15:00-0400 Body mass index (BMI) [Ratio] 25.24 kg/m2 Vickey Moeller Other [employer] Other 11-19-2022 15:00-0400 Body weight 89.18 kg Vickey Moeller Other [employer] Other 11-19-2022 15:00-0400 Diastolic blood pressure 88 mm[Hg] Vickey Moeller Other [employer] Other 11-19-2022 15:00-0400 Systolic blood pressure 147 mm[Hg] Vickey Moeller Other [employer] Other 11-10-2022 09:00-0400 Body height 187.96 cm Duarte Ball Other [employer] Other 11-10-2022 09:00-0400 Body mass index (BMI) [Ratio] 25.24 kg/m2 Duarte Ball Other [employer] Other 11-10-2022 09:00-0400 Body weight 89.18 kg Duarte Ball Other [employer] Other 11-10-2022 09:00-0400 Diastolic blood pressure 96 mm[Hg] Duarte Ball Other [employer] Other 11-10-2022 09:00-0400 Respiratory rate 12 /min Duarte Ball Other [employer] Other 11-10-2022 09:00-0400 Systolic blood pressure 153 mm[Hg] Duarte Ball Other [employer] Other 05-07-2022 11:00-0400 Body height 187.96 cm Duarte Ball Other [employer] Other 05-07-2022 11:00-0400 Body mass index (BMI) [Ratio] 25.52 kg/m2 Duarte Ball Other [employer] Other 05-07-2022 11:00-0400 Body weight 90.18 kg Duarte Ball Other [employer] Other 05-07-2022 11:00-0400 Diastolic blood pressure 91 mm[Hg] Duarte Ball Other [facility] [employer] Other 05-07-2022 11:00-0400 Respiratory rate 12 /min Duarte Ball Other [facility] [employer] Other 05-07-2022 11:00-0400 Systolic blood pressure 150 mm[Hg] Duarte Ball Other [facility] [employer] Other 09-17-2021 13:18-0400 Diastolic blood pressure 95 mm[Hg] DO Duarte Ball Work Phone: [facility] 09-17-2021 13:18-0400 Heart rate 70 /min DO Duarte Ball Work Phone: [facility] 09-17-2021 13:18-0400 Respiratory rate 16 /min DO Duarte Ball Work Phone: [facility] 09-17-2021 13:18-0400 SaO2% (BldA) [Mass fraction] 97 % DO Duarte Ball Work Phone: [facility] 09-17-2021 13:18-0400 Systolic blood pressure 144 mm[Hg] DO Duarte Ball Work Phone: [facility] 09-17-2021 11:25-0400 Body height 185.42 cm DO Duarte Ball Work Phone: [facility] 09-17-2021 11:25-0400 Body temperature 97.9 [degF] DO Duarte Ball Work Phone: [facility] 09-17-2021 11:25-0400 Body weight 86.18 kg DO Duarte Ball Work Phone: [facility] 09-06-2021 08:34-0400 Body weight 87.59 kg Cynthia Oliver MD Work Phone: [facility] 09-06-2021 08:34-0400 Diastolic blood pressure 88 mm[Hg] Cynthia Oliver MD Work Phone: [facility] 09-06-2021 08:34-0400 Heart rate 98 /min Cynthia Oliver MD Work Phone: [facility] 09-06-2021 08:34-0400 Systolic blood pressure 145 mm[Hg] Cynthia Oliver MD Work Phone: [facility] Encounters Encounter Date Encounter Type Care Provider Facility Start: 10-14-2024 End: 10-14-2024 External Result Encounter Nidia Pugh MD Work Phone: [facility] External Department Unsolicited Start: 10-14-2024 End: 10-14-2024 External Result Encounter Nidia Pugh MD Work Phone: [facility] External Department Unsolicited Start: 10-13-2024 End: 10-13-2024 ambulatory Duarte Rogers DO Work Phone: [facility] Work Phone: Start: 10-13-2024 End: 10-13-2024 Patient encounter procedure Rachel Angeles RN -[facility] Work Phone: Start: 10-12-2024 Registered Recurring Nidia Solano MD -[facility] Work Phone: Start: 10-12-2024 End: 10-12-2024 ambulatory Duarte Rogers DO Work Phone: [facility] Work Phone: Start: 10-12-2024 End: 10-12-2024 Patient encounter procedure Nidia Solano MD -[facility] Work Phone: Start: 09-26-2024 End: 09-26-2024 Postop follow up visit related to original px Duarte Flores DO Work Phone: [facility] Comment on above: Cervical adenopathy (Primary Dx) Start: 09-26-2024 End: 09-26-2024 ambulatory DUARTE FLORES Not Available Start: 09-26-2024 End: 09-26-2024 Bamboo flowsheet Duarte Flores DO Work Phone: [facility] Start: 09-26-2024 End: 09-26-2024 Bamboo flowsheet Duarte Flores DO Work Phone: [facility] Start: 09-19-2024 End: 09-19-2024 ambulatory DUARTE FLORES Not Available Start: 09-16-2024 End: 09-16-2024 Admission to same day surgery center Duarte Flores DO -[facility] [place] Start: 09-16-2024 End: 09-16-2024 ambulatory Duarte Rogers DO Work Phone: [facility] Work Phone: Start: 09-13-2024 End: 09-13-2024 Departed Referred Duarte Flores DO -Pre-Surgical Testing Work Phone: Start: 09-13-2024 End: 09-13-2024 Patient encounter procedure Duarte Flores DO -Pre-Surgical Testing Work Phone: Start: 09-13-2024 End: 09-13-2024 ambulatory Duarte Roegrs DO Work Phone: [facility] Work Phone: Start: 09-12-2024 End: 09-12-2024 ambulatory DUARTE FLORES Not Available Start: 09-12-2024 End: 09-12-2024 Bamboo flowsheet Duarte Flores DO Work Phone: [facility] Start: 09-12-2024 End: 09-12-2024 Bamboo flowsheet Duarte Flores DO Work Phone: [facility] Start: 09-12-2024 End: 09-12-2024 Patient encounter procedure Duarte Flores DO Work Phone: [facility] Start: 09-12-2024 End: 09-12-2024 Office outpatient new 45 minutes Duarte Flores DO Work Phone: [facility] Comment on above: Cervical lymphadenop athy (Primary Dx) Start: 09-07-2024 ambulatory Duarte oRgers DO Work Phone: [facility] Work Phone: Start: 09-07-2024 Non-patient / Non-visit Duarte Hayder magallon DO -[facility] Work Phone: Start: 09-05-2024 End: 09-05-2024 Admission to same day surgery center Duarte Rogers DO -[facility] [place] Work Phone: Start: 09-05-2024 End: 09-05-2024 ambulatory Duarte Rogers DO Work Phone: [facility] Work Phone: Start: 08-18-2024 End: 08-18-2024 Patient encounter procedure Clarke Bertrand MD -[facility] [address] Work Phone: Start: 08-18-2024 End: 08-18-2024 ambulatory Duarte Rogers DO Work Phone: [facility] Work Phone: Start: 08-15-2024 End: 08-15-2024 ambulatory Duarte Rogers DO Work Phone: [facility] Work Phone: Start: 08-15-2024 End: 08-15-2024 Patient encounter procedure Duarte Rogers DO -[facility] Work Phone: Start: 08-09-2024 Non-patient / Non-visit Duarte magallon DO -[facility] Work Phone: Start: 07-13-2024 End: 07-13-2024 ambulatory Duarte Rogers DO Work Phone: [facility] Work Phone: Start: 07-13-2024 End: 07-13-2024 Patient encounter procedure Duarte Rogers DO Work Phone: [facility] Work Phone: Start: 07-07-2024 Non-patient / Non-visit Benjam in Ball DO Work Phone: [facility] Work Phone: Start: 07-07-2024 Non-patient / Non-visit Benjam in Ball DO Work Phone: [facility] Work Phone: Start: 07-06-2024 Non-patient / Non-visit Benjam in Ball DO Work Phone: [facility] Work Phone: Start: 07-05-2024 Non-patient / Non-visit Benjam in Ball DO Work Phone: [facility] Work Phone: Start: 07-04-2024 Non-patient / Non-visit Benjam in Ball DO Work Phone: [facility] Work Phone: Start: 07-03-2024 End: 07-03-2024 ambulatory Duarte Ball DO Work Phone: [facility] Work Phone: Start: 07-03-2024 End: 07-03-2024 Departed Referred Duarte Ball DO Work Phone: [facility] Start: 07-03-2024 Non-patient / Non-visit Benjam in Ball DO Work Phone: [facility] Work Phone: Start: 06-06-2024 Non-patient / Non-visit Benjam in Ball DO Work Phone: [facility] Work Phone: Start: 06-06-2024 End: 06-06-2024 Admission to same day surgery center Duarte Ball DO Work Phone: [facility]-Digestive [facility] Work Phone: Start: 06-06-2024 End: 06-06-2024 ambulatory Duarte Ball DO Work Phone: [facility] Work Phone: Start: 05-30-2024 Non-patient / Non-visit Benjam in Ball DO Work Phone: [facility] Work Phone: Start: 05-23-2024 End: 05-23-2024 ambulatory Duarte Ball DO Work Phone: [facility] Work Phone: Start: 05-23-2024 End: 05-23-2024 Patient encounter procedure Duarte Ball DO Work Phone: [facility] Work Phone: Start: 05-11-2024 End: 05-11-2024 Patient encounter procedure Duarte Ball DO Work Phone: [facility] [address] Work Phone: Start: 05-11-2024 End: 05-11-2024 ambulatory Duarte Ball DO Work Phone: [facility] Work Phone: Start: 04-20-2024 End: 04-20-2024 ambulatory Duarte Ball DO Work Phone: [facility] Work Phone: Start: 04-20-2024 End: 04-20-2024 Patient encounter procedure Duarte Ball DO Work Phone: [facility] Work Phone: Start: 02-24-2024 End: 02-24-2024 Patient encounter procedure Duarte Ball DO Work Phone: [facility] [address] Work Phone: Start: 02-24-2024 End: 02-24-2024 ambulatory Duarte Ball DO Work Phone: [facility] Work Phone: Start: 12-30-2023 End: 12-30-2023 Patient encounter procedure Duarte Ball DO Work Phone: [facility] [address] Work Phone: Start: 12-30-2023 End: 12-30-2023 ambulatory Duarte Ball DO Work Phone: [facility] Work Phone: Start: 11-18-2023 End: 11-18-2023 ambulatory MD Clarke Bertrand Work Phone: [facility] Work Phone: Start: 11-18-2023 End: 11-18-2023 Patient encounter procedure MD Clarke Bertrand Work Phone: [facility] G[facility] Work Phone: Start: 11-12-2023 End: 11-12-2023 ambulatory MD Clarke Bertrand Work Phone: [facility] Work Phone: Start: 11-12-2023 End: 11-12-2023 Patient encounter procedure MD Clarke Bertrand Work Phone: [facility] Work Phone: Start: 11-09-2023 Patient encounter procedure MD Clarke Bertrand Work Phone: [facility] Start: 09-09-2023 End: 09-09-2023 ambulatory DO Evangelista Bedocs Work Phone: [facility] Work Phone: Start: 09-09-2023 End: 09-09-2023 Patient encounter procedure DO Evangelista Bedocs Work Phone: [facility] [address] Work Phone: Start: 07-15-2023 End: 07-15-2023 ambulatory DO Duarte Ball Work Phone: [facility] Work Phone: Start: 07-15-2023 End: 07-15-2023 Patient encounter procedure DO Duarte Ball Work Phone: [facility] [address] Work Phone: Start: 06-30-2023 End: 06-30-2023 ambulatory DO Duarte Ball Work Phone: [facility] Work Phone: Start: 06-30-2023 End: 06-30-2023 Departed Referred DO Duarte Ball Work Phone: [facility] [address] [place] Work Phone: Start: 05-21-2023 End: 05-21-2023 ambulatory DO Duarte Ball Work Phone: [facility] Work Phone: Start: 05-21-2023 End: 05-21-2023 Patient encounter procedure DO Duarte Ball Work Phone: [facility] Work Phone: Start: 05-12-2023 End: 05-12-2023 ambulatory DO Duarte Ball Work Phone: [facility] Work Phone: Start: 05-12-2023 End: 05-12-2023 Patient encounter procedure DO Duarte Ball Work Phone: [facility] Work Phone: Start: 03-25-2023 End: 03-25-2023 ambulatory DO Duarte Ball Work Phone: [facility] Work Phone: Start: 03-25-2023 End: 03-25-2023 Patient encounter procedure DO Duarte Ball Work Phone: [facility] [address] Work Phone: Start: 03-03-2023 End: 03-03-2023 ambulatory Vickey Moeller Other [facility] Other Start: 03-03-2023 Telephone encounter Vickey Moeller [facility] Start: 01-28-2023 End: 01-28-2023 ambulatory DO Duarte Ball Work Phone: [facility] Work Phone: Start: 01-28-2023 End: 01-28-2023 Patient encounter procedure DO Duarte Ball Work Phone: [facility] [address] Work Phone: Start: 12-03-2022 End: 12-03-2022 ambulatory DO Duarte Ball Work Phone: [facility] Work Phone: Start: 12-03-2022 End: 12-03-2022 Patient encounter procedure DO Duarte Ball Work Phone: [facility] [address] Work Phone: Start: 11-24-2022 End: 11-24-2022 Patient encounter procedure Cynthia Oliver MD Work Phone: Cardiology Comment on above: History of loop jorge rder (Primary Dx) Start: 11-19-2022 End: 11-19-2022 ambulatory Vickey Moeller Other [facility] Other Start: 11-19-2022 Patient encounter procedure Vickey Moeller [facility] Start: 11-10-2022 End: 11-10-2022 ambulatory Duarte Rogers Other [facility] Other Start: 11-10-2022 Patient encounter procedure Duarte Ball [facility] Start: 11-04-2022 End: 11-04-2022 ambulatory Duarte Rogers Other [facility] Other Start: 11-04-2022 Telephone encounter Duarte Rogers [facility] Start: 10-08-2022 End: 10-08-2022 ambulatory DO Duarte Ball Work Phone: [facility] Work Phone: Start: 10-08-2022 End: 10-08-2022 Patient encounter procedure DO Duarte Ball Work Phone: [facility] [address] Work Phone: Start: 06-18-2022 End: 06-18-2022 ambulatory DO Duarte Ball Work Phone: [facility] Work Phone: Start: 06-18-2022 End: 06-18-2022 Patient encounter procedure DO Duarte Ball Work Phone: [facility] [address] Work Phone: Start: 06-10-2022 End: 06-10-2022 ambulatory Duarte Rogers Other [facility] Other Start: 06-10-2022 Telephone encounter Duarte Rogers [facility] Start: 05-07-2022 End: 05-07-2022 ambulatory Duarte Rogers Other [facility] Other Start: 05-07-2022 Office outpatient vi sit 25 minutes Duarte Rogers [facility] Start: 04-23-2022 End: 04-23-2022 Patient encounter procedure DO Duarte Ball Work Phone: [facility] [address] Work Phone: Start: 02-28-2022 End: 02-28-2022 ambulatory Duarte Rogers Other [facility] Other Start: 02-28-2022 Telephone encounter Duarte Rogers [facility] Start: 02-05-2022 Adult health examination Harshil anthony Rogers Other [facility] Other Start: 01-08-2022 End: 01-08-2022 ambulatory Vickey Moeller Other [facility] [employer] Other Start: 01-08-2022 Telephone encounter Vickey Moeller [facility] Start: 12-10-2021 End: 12-10-2021 ambulatory DO Duarte Rogers Work Phone: [facility] Work Phone: Start: 12-10-2021 End: 12-10-2021 Patient encounter procedure DO Duarte Rogers Work Phone: [facility] [address] Start: 10-17-2021 End: 10-17-2021 Patient encounter procedure DO Duarte Rogers Work Phone: [facility] [address] Start: 09-17-2021 End: 09-17-2021 Admission to same day surgery center DO Duarte Rogers Work Phone: [facility] Start: 09-13-2021 End: 09-13-2021 Patient encounter procedure DO Duarte Rogers Work Phone: [facility] Start: 09-06-2021 End: 09-06-2021 Patient encounter procedure Cynthia Oliver MD Work Phone: Cardiology Comment on above: Status post placemen t of implantable loop recorder (Primary Dx) Start: 08-22-2021 End: 08-22-2021 Patient encounter procedure DO Duarte Rogers Work Phone: [facility] [address] Start: 07-22-2021 Telephone encounter Cynthia Oliver MD Work Phone: [facility] Adult Comment on above: Results Start: 05-15-2021 Telephone encounter Cynthia Oliver MD Work Phone: Cardiology Comment on above: Appointment Start: 11-06-2020 End: 11-07-[address] DUARTE ROGERS Facility: Start: 01-28-2018 End: 01-29-2018 Patient encounter procedure DEFAULT PHYSICIAN Facility:[facility] Procedures Date Procedure Procedure Detail Performing Clinician Start: 10-14-2024 Complete blood count with white cell differential, automated Nidia Pugh MD Work Phone: Start: 10-14-2024 Comprehensive metabolic panel Nidia neil MD Work Phone: Start: 10-14-2024 GLUCOSE POCT GLUCOMETERS Nidia Pugh MD Work Phone: Start: 09-16-2024 Excision of mass of neck Duarte Rogers D O Work Phone: Start: 09-05-2024 Ultrasonic guidance for needle biopsy Duarte Rogers DO Work Phone: Start: 09-05-2024 Aspiration Duarte Rogers DO Work Phone: Start: 08-15-2024 CT soft tissue neck w con Duarte Rogers DO Work Phone: Start: 07-03-2024 Anaerobe Identification Only Duarte Ba ll DO Work Phone: Start: 07-03-2024 Urine culture Duarte Rogers DO Work Phone: Start: 06-06-2024 Esophagogastroduodenoscopy Duarte Rogers DO Work Phone: Start: 06-30-2023 Aerobic microbial culture DO Duarte Killian ll Work Phone: Start: 05-21-2023 Plain X-ray of right shoulder DO Karely Rogers Work Phone: Start: 09-17-2021 Esophagogastroduodenoscopy DO Duarte Acosta all Work Phone: Start: 11-06-[address] DUARTE ROGERS Comment on above: Performed By: #### [facility] #### [facility] [address] [place] [address] Dr. Maricarmen Barrett Start: 02-11-2018 Screening for malignant neoplasm of prostate Duarte Ken Other Start: 02-17-2017 General examination of patient Duarte Rogers Other Depression screening Karely Rogers Other H/O: surgery History of loop recorder Cynthia Oliver MD Work Phone: Screening for malign ant neoplasm of prostate Duarte Rogers Other Plan of Treatment Date Care Activity Detail Author Start: 10-31-2024 End: 10-31-2024 Patient encounter procedure 10/31/2024 2:00 PM EDT Office Visit [facility] [address] [place] [id number] Duarte Flores, DO [address] [facility] [place] [place] [address] [facility] Start: 10-19-2024 End: 10-19-2024 Patient encounter procedure 10/19/2024 11:00 AM EDT Consult [facility] [address] [phone] Roque Hunter MD [address] [facility] [address] [place] [address] [facility] Start: 10-13-2024 Patient referral [facility] Work Phone: Start: 2024 Influenza vaccination Influenza Vaccine (#1) [facility] Start: 09-26-2024 End: 09-26-2024 [facility] Comment on above: Arrived Start: 09-16-2024 End: 09-16-2024 [facility] Start: 09-07-2024 Patient referral [facility] Work Phone: Start: 09-05-2024 [facility] Start: 09-05-2024 Ultrasonic guidance for needle biopsy US needle biopsy [facility] Start: 07-03-2024 Urine culture [facility] Start: 07-03-2024 Bacteria identified in Urine by Culture Urine Culture [facility] Start: 06-06-2024 [facility] Start: 06-30-2023 Superficial Wound Culture Superficial Wound Culture [facility] Start: 05-21-2023 Plain X-ray of right shoulder XR shoulder RT min 2V* [facility] Start: 05-21-2023 XR Shoulder - right Views [facility] Start: 10-27-2022 Covid-19 Vaccine ( season) Covid-19 Vaccine ( season) [facility] Start: 02-09-2022 Advance Directive Discussion Advance Directive Discussion [facility] Start: 02-09-2022 Depression Assessment Depression Assessment [facility] Start: 2021 Influenza vaccination [facility] Start: 09-26-2021 COVID-19 VACCINE (5 - Booster for Pfizer series) COVID-19 VACCINE (5 - Booster for Pfizer series) [facility] Start: 09-17-2021 [facility] Start: 09-17-2021 Esophagogastroduodenoscopy DH EGD (Not Applicable) [facility] Start: 09-17-2021 End: 09-17-2021 Admission to same day surgery center Departed Surgical Day Care [facility] Start: 02-15-2021 COVID-19 VACCINE (4 - Booster for Pfizer series) COVID-19 VACCINE (4 - Booster for Pfizer series) [facility] Start: 02-09-2021 ADVANCE DIRECTIVE DISCUSSION ADVANCE DIRECTIVE DISCUSSION [facility] Start: 08-02-2016 DIABETES SCREEN DIABETES SCREEN [facility] Start: 08-02-2016 Diabetes Screening Diabetes Screening [facility] Start: 2006 PNEUMOVAX AGE 65 AND OVER WITH 5YR LOOKBACK (#1) PNEUMOVAX AGE 65 AND OVER WITH 5YR LOOKBACK (#1) [facility] Start: 10-11-1991 SHINGRIX VACCINE (1 of 2) SHINGRIX VACCINE (1 of 2) [facility] Start: 1960 SHINGRIX VACCINE (1 of 2) SHINGRIX VACCINE (1 of 2) [facility] Start: 1960 Urine microalbumin profile [facility] Start: 1953 Adult depression screening assessment DEPRESSION SCREENING [facility] Start: 10-11-1947 Pneumococcal Vaccine: 65+ (1 - PCV) Pneumococcal Vaccine: 65+ (1 - PCV) [facility] Start: 09-01-1948 PNEUMOCOCCAL: 65+ (1 - PCV) PNEUMOCOCCAL: 65+ (1 - PCV) [facility] Comprehensive metabo lic 1999 panel - Serum or Plasma [facility] CT Chest W contrast IV [facility] CT Neck [facility] E[facility] 12 [facility] Hepatitis B core ant ibody measurement [facility] Hepatitis B virus avila rface Ab [Presence] in Serum [facility] Patient Education [facility] Work Phone: Patient referral [facility] Work Phone: Thyroid stimulating immunoglobulins actual/normal in Serum [facility] Heart Transthoracic [facility] Immunizations Immunization Date Immunization Notes Care Provider Arash singh 11-12-2023 influenza, high dose seasonal, preservative-free MD Clarke Bertrand Work Phone: [facility] 11-12-2023 influenza virus vaccine, unspecified formulation Duarte Flores DO Work Phone: [facility] 11-10-2022 influenza virus vaccine, unspecified formulation DO Duarte Rogers Work Phone: [facility] 11-10-2022 influenza, high dose seasonal, preservative-free Duarte Rogers Other [facility] [employer] Other 11-10-2022 Prevnar 20 Duarte Rogers Other [facility] 09-01-2022 COVID-19 Pfizer (bivalent) Duarte Rogers Other [facility] 11-07-2021 influenza virus vaccine, split virus (incl. purified surface antigen) Duarte Rogers Other [facility] [employer] Other 11-07-2021 influenza virus vaccine, unspecified formulation DO Duarte Rogers Work Phone: [facility] 11-07-2021 Influenza, Seasonal, Quadrivalent, Adjuvanted Duarte Murcek DO Work Phone: [facility] 11-06-2020 influenza virus vaccine, split virus (incl. purified surface antigen) Duarte Rogers Other [facility] Other 11-06-2020 influenza virus vaccine, unspecified formulation DO Duarte Rogers Work Phone: [facility] 04-12-2020 COVID-19 vaccine, ag e 12+ yr (PFIZER-BIONTECH - PURPLE TOP) Cynthia Oliver MD Work Phone: [facility] 03-22-2020 COVID-19 vaccine, ag e 12+ yr (PFIZER-BIONTECH - PURPLE TOP) Cynthia Oliver MD Work Phone: [facility] 11-16-2019 influenza (aIIV4) vaccine, age 65+ yr, quadrivalent, PF (FLUAD QUADRIVALENT) Cynthia Oliver MD Work Phone: [facility] 11-17-2018 Influenza, injectabl e, [place] Canine Kidney, preservative free, quadrivalent Duarte Murcek DO Work Phone: [facility] 11-18-2017 influenza virus vaccine, split virus (incl. purified surface antigen) Duarte Rogers Other [facility] [employer] Other 11-18-2017 influenza virus vaccine, unspecified formulation DO Duarte Rogers Work Phone: [facility] 11-15-2017 influenza, injectabl e, quadrivalent, preservative free Duarte Murcek DO Work Phone: [facility] 12-03-2016 Influenza, injectabl e, [place] Canine Kidney, preservative free, quadrivalent Duarte Murcek DO Work Phone: [facility] 12-23-2015 influenza virus vaccine, split virus (incl. purified surface antigen) Duarte Rogers Other [facility] Other 12-23-2015 influenza virus vaccine, unspecified formulation DO Duarte Rogers Work Phone: [facility] 02-21-2015 pneumococcal conjuga te vaccine, 13 valent Duarte Rogers Other [facility] 02-21-2015 pneumococcal Conjuga te, unspecified formulation; Translations: [Need for prophylactic vaccination against Streptococcus pneumoniae (pneumococcus)] Duarte Rogers Other [facility] [employer] Other 12-29-2014 influenza, seasonal, injectable, preservative free Duarte Flores DO Work Phone: [facility] 11-25-2013 tetanus and diphther ia toxoids, adsorbed, preservative free, for adult use (5 Lf of tetanus toxoid and 2 Lf of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
== END 2024-10-14 13:44 | disposition home or self-care (01) ==
PROVIDERS: PCP Internal Medicine
DX: Z51.11 Encounter for antineoplastic chemotherapy (principal)
CPT/HCPCS: 93306; 93356